=== PATIENT | female | born 1965 | race Two or more races ===

== ENCOUNTER 2020-03-21 12:52 | Emergency (ER) | payer MEDICARE, MEDICAID, SELFPAY ==
--- NOTE | 2020-03-21 12:56 | ECG_ITS ---
Test Reason : CHEST TIGHT Blood Pressure : / mmHG Vent. Rate : 098 BPM Atrial Rate : 078 BPM P-R Int : 156 ms QRS Dur : 082 ms QT Int : 364 ms P-R-T Axes : 045 029 050 degrees QTc Int : 464 ms Sinus rhythm Possible Left atrial enlargement Otherwise normal ECG When compared with ECG of 27-JUN-2019 17:36, No significant changes seen Referred By: Generic ED Physician Electronically Signed By:RENITA HODGSON MD
--- NOTE | 2020-03-21 12:56 | PC.NURSE ---
CALLED FOR EKG AT 1251
[2020-03-21 14:17] VITALS: BP 151/74; PULSE 72; RESP 16; TEMP 35.7; O2SAT 97; BMI 32.1
--- NOTE | 2020-03-21 14:48 | PC.NURSE ---
NSR ON MONITR. UNLABORED RESP. SKIN [PWD. REPORTING EPISODES OF DIZZINESS WITH DIAPHORESIS OCER LAST MONTH. MOST RECENT WAS WITH CP BUT HAS RESOLVED ALMOST ENTIRELY. CHEST TIGHTNESS REMAINS. LS CTA. STRNG STEADY GAIT ARRIVING.
[2020-03-21 14:49] VITALS: BP 161/87; PULSE 78; RESP 20; O2SAT 98
--- NOTE | 2020-03-21 14:55 | ED_ITS ---
HPI - Chest Pain General Chief Complaint: Chest Pain Stated Complaint: chest pressure, dizziness Time Seen by Provider: 03/21/20 14:55 Source: patient Mode of arrival: ambulatory Limitations: no limitations History of Present Illness HPI narrative: Today patient had tighness in her chest. Patient has been suffering with headache for a month with dizziness all the time. Patient has a doctor have not seen them. Patient has no chronic medical problems MD complaint: chest pain Onset (ago): hour(s) Timing of current episode: constant Onset: other (patient was cleaning her house when she got the pressure) Pain location: substernal Pain radiation: none Severity: mild Quality: tightness Associated symptoms: other (dizziness) Risk Factors Coronary artery disease risk factors: none Thoracic aortic dissection risk factors: none Related Data Allergies Allergy/AdvReac Type Severity Reaction Status Date / Time calcium [Calcium] Allergy Severe HIVES Verified 03/21/20 14:26 doxycycline [Doxycycline] Allergy Severe FACIAL Verified 03/21/20 14:26 SWELLING, almost killed pt,inhouse for weakness,,incontinence?seizures, almost killed pt,inhouse for weakness,,incontinence?seizures Penicillins Allergy Severe FACIAL Verified 03/21/20 14:26 SWELLING amoxicillin Allergy Unknown throat Verified 03/21/20 14:26 swelling azithromycin [AZITHROMYCIN] Allergy Unknown BLOODY Verified 03/21/20 14:26 DIARRHEA cefuroxime [CEFUROXIME] Allergy Unknown ANGIOEDEMA Verified 03/21/20 14:26 ciprofloxacin [Cipro] Allergy Unknown Unknown Verified 03/21/20 14:26 clindamycin [CLINDAMYCIN] Allergy Unknown ANAPHYLAXIS Verified 03/21/20 14:26 Erythromycin Allergy Unknown diarrhea Verified 03/21/20 14:26 iron Allergy Unknown Unknown Verified 03/21/20 14:26 levofloxacin [Levaquin] Allergy Unknown Unknown Verified 03/21/20 14:26 peanut [Peanut] Allergy Unknown ITCHING Unverified 02/13/20 15:03 penicillin V Allergy Unknown ears and Unverified 09/04/19 00:00 face swell,throat swell Sulfa (Sulfonamide Allergy Unknown ANAPHYLAXIS, Unverified 02/13/20 15:03 Antibiotics) swelling [SULFA(SULFONAMIDE body,welts ANTIBIOTICS)] Clindamycin HCl Allergy Unknown swelling Uncoded 09/04/19 00:00 body Doxycycline Hyclate Allergy Unknown Anaphylaxis Uncoded 03/21/20 14:26 Levaquin Allergy Unknown headaches Uncoded 09/04/19 00:00 RAISIN Allergy Unknown ITCHING Uncoded 02/13/20 15:03 TURNIPS Allergy Unknown UNKNOWN Uncoded 02/13/20 15:03 Review of Systems Constitutional: Constitutional: Reports no additional constitutional complaints Eyes: Eyes: Reports no additional eye complaints ENT: Denies dizziness Cardiovascular: Cardiovascular: Reports no additional cardiovascular complaints Respiratory: Respiratory: Reports as per HPI Gastrointestinal: Gastrointestinal: Reports no additional gastrointestinal complaints Genitourinary: Genitourinary: Reports no additional female genitourinary complaints Musculoskeletal: Musculoskeletal: Reports no additional musculoskeletal complaints Integumentary/Breasts: Skin/Breast: Denies rash Neurologic: Reports system reviewed and no additional complaints, except as documented, Denies dizziness and Denies Sensory deficit (Neuro) Psychiatric: Psychiatric: Reports anxiety Comments: Patient with increased anxiety about going outside since [facility] Past Medical History Medical History (Updated 03/21/20 @ 16:56 by Constantino Gordon MD) Anxiety Appendicitis Carpal tunnel syndrome Chronic headaches Depression Diverticulosis Fibromyalgia IBS (irritable bowel syndrome) Kidney stone Right shoulder injury Vertigo Surgical History (Updated 03/21/20 @ 14:21 by Dorothy Mosher) Hx of cholecystectomy Social History Social History Alcohol intake: never Smoking Status: Light tobacco smoker Smoked in Last 30 Days: Yes Use of substances other than those prescribed or required for medical reasons: Yes Substance Use Type: Marijuana Advance Directives: No Advance Directives Information Provided: No Physical Exam Vital Signs: Vital Signs: Vital Signs Temp Pulse Resp BP Pulse Ox 03/21/20 15:20 74 18 131/78 100 03/21/20 14:49 78 20 161/87 H 98 03/21/20 14:17 96.3 F L 72 16 151/74 H 97 Body Mass Index 32.1 Const: General: healthy appearing Nutritional Appearance: average body habitus Orientation/consciousness: oriented to person and patient oriented x3 Limitations: no limitations HENMT: Head: Yes normal to inspection Ears: external ears normal General nose exam: Normal external nose present Mouth: Normal oral and palatal mucosa present and oropharynx normal Throat: Yes posterior oropharynx normal Eyes: General: appearance normal, both eyes and all related structures Neck: Other: supple Neck: Yes normal visual inspection Chest: Chest palpation & inspection: normal inspection of the chest Resp: Auscultation: clear to auscultation bilaterally Cardio: Jugular venous distension: no JVD Rate: regular rate Rhythm: regular rhythm Heart sounds: S1 normal heart sound present and S2 normal heart sound present GI: Inspection: Yes normal to inspection Palpation (GI): Soft to palpation, nontender and No hepatosplenomegaly present Auscultation: normal bowel sounds : General: Yes no CVA tenderness Back/Spine/Pelvis: Back: no CVA tenderness Skin: General skin exam: no rashes or lesions noted Neuro: General: oriented to person and patient oriented x3 Cranial nerves: Yes CN's II-XII intact bilaterally Motor exam (neuro): 5/5 motor strength present throughout Sensory Exam: No Sensory deficit (Neuro) Extrem: General: Yes normal to inspection Psych: Appearance: grossly normal Course Course Course Narrative: troponin negative will dc home MDM - Chest Pain MDM Narrative Medical decision making narrative: 54yo female with many somatic complaints and a history of fibromyalgia. She has had months of headaches which she suffers from chronically and today had chest discomfort while cleaning house. I doubt cardiac reason for her chest pain, EKG non ischemic awaiting labs and troponin Lab Data Result diagrams: 03/21/20 15:26 03/21/20 16:33 Labs: Lab Results 03/21/20 03/21/20 03/21/20 Range/Units 15:26 15:26 15:26 WBC 13.5 H (4.8-10.8) X10*3/uL RBC 4.86 (4.20-5.50) X10*6/uL Hgb 14.0 (12.0-16.0) g/dl Hct 43.3 (37-47) % MCV 89.1 (80-98) fL MCH 28.8 (27.0-33.0) pg MCHC 32.3 (31.0-35.0) g/dl RDW 13.5 (11.0-16.0) % Plt Count 331 (160-400) X10*3/uL MPV 9.9 (9.4-12.3) fL Immature Gran % (Auto) 0.4 (0.0-0.4) % Neut % (Auto) 72.1 (45-73) % Lymph % (Auto) 19.7 L (20-40) % [place] % (Auto) 5.9 (2-11) % Eos % (Auto) 1.5 (0-4) % Baso % (Auto) 0.4 (0-2) % Lymph # (Auto) 2.7 (1.2-4.9) X10*3/uL [place] # (Auto) 0.8 (0.1-1.2) X10*3/uL Eos # (Auto) 0.2 (0.0-0.4) X10*3/uL Baso # (Auto) 0.1 (0.0-0.2) X10*3/uL Abs Immat Gran (auto) 0.06 H (0.00-0.03) X10*3/uL Absolute Neuts (auto) 9.7 H (2.0-8.3) X10*3/uL Absolute Nucleated RBC 0.000 (0.0-0.012) X10*3/uL Nucleated RBC % (auto) 0.0 (0.0-0.2) /100WBC Sodium Cancelled Potassium Cancelled Chloride Cancelled Carbon Dioxide Cancelled Anion Gap Cancelled BUN Cancelled Creatinine Cancelled Estim Creat Clear Calc Cancelled Estimated GFR Cancelled Random Glucose Cancelled Calcium Cancelled Troponin I High Sens < 3.5 (<3.5-17.0) ng/L Discharge Plan Discharge Clinical Impression: Atypical chest pain Patient Disposition: Home, Self-Care Instructions: Chest Pain (ED) Referrals: Angelo Tejada PA-C [Primary Care Provider] - 2 days (call for follow up of your chest pain)
[2020-03-21 15:20] VITALS: BP 131/78; PULSE 74; RESP 18; O2SAT 100
--- NOTE | 2020-03-21 15:21 | PC.NURSE ---
PT CONTINUES TO FEEL CHEST TIGHTNES . SKIWN PWD. AWAITING LAB RESULTS.
[2020-03-21 15:32] LABS: MANUAL DIFF FLAG NO
[2020-03-21 15:33] LABS: Basophils Absolute Auto 0.1 X10*3/uL (0.0-0.2); Basophils Percent Auto 0.4 % (0-2); Eosinophils Absolute Auto 0.2 X10*3/uL (0.0-0.4); Eosinophils Percent Auto 1.5 % (0-4); Hematocrit 43.3 % (37-47); Imm Gran Abs Auto 0.06 X10*3/uL (0.00-0.03); Imm Gran Pct Auto 0.4 % (0.0-0.4); Lymphocytes Absolute Auto 2.7 X10*3/uL (1.2-4.9); Lymphocytes Percent Auto 19.7 % (20-40); Mean Corpuscular HGB Conc 32.3 g/dl (31.0-35.0); Mean Corpuscular Hemoglobin 28.8 pg (27.0-33.0); Mean Corpuscular Volume 89.1 fL (80-98); Mean Platelet Volume 9.9 fL (9.4-12.3); Monocytes Absolute Auto 0.8 X10*3/uL (0.1-1.2); Monocytes Percent Auto 5.9 % (2-11); Neutrophils Absolute Auto 9.7 X10*3/uL (2.0-8.3); Neutrophils Percent Auto 72.1 % (45-73); Platelet Count 331 X10*3/uL (160-400); Red Blood Count 4.86 X10*6/uL (4.20-5.50); Red Cell Distribution Width 13.5 % (11.0-16.0); White Blood Count 13.5 X10*3/uL (4.8-10.8)
[2020-03-21 15:57] LABS: Troponin-I High Sensitivity < 3.5 ng/L (<3.5-17.0)
[2020-03-21 16:00] VITALS: BP 138/74; PULSE 66; RESP 18; O2SAT 99
[2020-03-21 17:05] LABS: Anion Gap 13 (12-20); Blood Urea Nitrogen 18 mg/dL (9-16); Calcium 9.1 mg/dL (8.4-10.2); Carbon Dioxide 26 mmol/L (22-29); Chloride 105 mmol/L (96-108); Creatinine Clr Calc Pharmacy 71.7; Estimated Glomerular Filt Rate > 60; Glucose Random 83 mg/dL (60-115); Potassium 4.8 mmol/l (3.3-5.1); Sodium 139 mmol/L (135-145)
== END 2020-03-21 17:40 | disposition home or self-care (01) ==
PROVIDERS: Emergency Provider Emergency Medicine; PCP Physician Assistant
DX: R07.89 Other chest pain (principal); R42 Dizziness and giddiness; Z79.899 Other long term (current) drug therapy
CPT/HCPCS: 36415; 80048; 84484; 85025; 93005; 99283; 99284

== ENCOUNTER 2020-04-05 12:25 | Emergency (ER) | payer MEDICARE, MEDICAID, SELFPAY ==
[2020-04-05 12:49] VITALS: BP 145/86; PULSE 90; RESP 16; TEMP 37; O2SAT 99; BMI 30.9
--- NOTE | 2020-04-05 13:00 | XR_ITS ---
EXAMINATION: XR WRIST-RIGHT XR FOREARM-RIGHT CLINICAL INFORMATION: Injury. COMPARISON: Right hand done on 07/27/2016. TECHNIQUE: 3 views of the right hand and 2 views of the right forearm were obtained. FINDINGS: RIGHT WRIST: Mild ulnar minus variant is present, unchanged. The bony alignments are otherwise intact. The cortices are intact. The soft tissues are unremarkable. No significant change since prior radiographs dated 07/27/2016. RIGHT FOREARM: The bony alignment is intact. The cortices are intact. The soft tissues are unremarkable. XR/XR forearm RT 2V IMPRESSION: Unremarkable radiographic appearance of the right wrist and right forearm except for mild ulnar minus variant which is unchanged since 07/27/2016.
--- NOTE | 2020-04-05 13:00 | XR_ITS ---
EXAMINATION: XR WRIST-RIGHT XR FOREARM-RIGHT CLINICAL INFORMATION: Injury. COMPARISON: Right hand done on 07/27/2016. TECHNIQUE: 3 views of the right hand and 2 views of the right forearm were obtained. FINDINGS: RIGHT WRIST: Mild ulnar minus variant is present, unchanged. The bony alignments are otherwise intact. The cortices are intact. The soft tissues are unremarkable. No significant change since prior radiographs dated 07/27/2016. RIGHT FOREARM: The bony alignment is intact. The cortices are intact. The soft tissues are unremarkable. XR/XR wrist RT min 3V IMPRESSION: Unremarkable radiographic appearance of the right wrist and right forearm except for mild ulnar minus variant which is unchanged since 07/27/2016.
--- NOTE | 2020-04-05 13:14 | ED.EXTPRO ---
HPI - Extremity Problem General Chief complaint: Fall Stated complaint: rt arm pain Time Seen by Provider: 04/05/20 13:00 History of Present Illness HPI Narrative: Patient complains of trip and fall injury to right wrist and forearm that occurred today, there is no other injury, no numbness no weakness, she was not dizzy before her fall This happened today, pain is [id number], no treatment prior to arrival Related Data Home Medications Medication Instructions Recorded Confirmed bupropion HCl 150 mg 24 hr tablet, 150 mg PO QAM 03/24/20 03/24/20 extended release fluticasone propionate 115 2 puff INHALATION BID 03/24/20 03/24/20 mcg-salmeterol 21 mcg/actuation HFA inhaler ipratropium bromide 0.03 % nasal INTRANASAL 03/24/20 03/24/20 spray loratadine 10 mg tablet 10 mg PO DAILY 03/24/20 03/24/20 Previous Rx's Medication Instructions Recorded levalbuterol tartrate 45 1 puff INHALATION Q4H PRN 30 Days 03/24/20 mcg/actuation aerosol inhaler #15 g montelukast 10 mg tablet 10 mg PO DAILY #30 tab 03/24/20 Allergies Allergy/AdvReac Type Severity Reaction Status Date / Time calcium [Calcium] Allergy Severe HIVES Verified 03/24/20 15:58 doxycycline [Doxycycline] Allergy Severe FACIAL Verified 03/24/20 15:58 SWELLING, almost killed pt,inhouse for weakness,,incontinence?seizures, almost killed pt,inhouse for weakness,,incontinence?seizures Penicillins Allergy Severe FACIAL Verified 03/24/20 15:58 SWELLING amoxicillin Allergy Unknown throat Verified 03/24/20 15:58 swelling azithromycin [AZITHROMYCIN] Allergy Unknown BLOODY Verified 03/24/20 15:58 DIARRHEA cefuroxime [CEFUROXIME] Allergy Unknown ANGIOEDEMA Verified 03/24/20 15:58 ciprofloxacin [Cipro] Allergy Unknown Unknown Verified 03/24/20 15:58 clindamycin [CLINDAMYCIN] Allergy Unknown ANAPHYLAXIS Verified 03/24/20 15:58 Erythromycin Allergy Unknown diarrhea Verified 03/24/20 15:58 iron Allergy Unknown Unknown Verified 03/24/20 15:58 levofloxacin [Levaquin] Allergy Unknown Unknown Verified 03/24/20 15:58 peanut [Peanut] Allergy Unknown ITCHING Verified 03/24/20 15:58 penicillin V Allergy Unknown ears and Verified 03/24/20 15:58 face swell,throat swell Sulfa (Sulfonamide Allergy Unknown ANAPHYLAXIS, Verified 03/24/20 15:58 Antibiotics) swelling [SULFA(SULFONAMIDE body,welts ANTIBIOTICS)] Clindamycin HCl Allergy Unknown swelling Uncoded 09/04/19 00:00 body Doxycycline Hyclate Allergy Unknown Anaphylaxis Uncoded 03/21/20 14:26 Levaquin Allergy Unknown headaches Uncoded 09/04/19 00:00 RAISIN Allergy Unknown ITCHING Uncoded 02/13/20 15:03 TURNIPS Allergy Unknown UNKNOWN Uncoded 02/13/20 15:03 Review of Systems Review of Systems: Review of systems is positive for right wrist and forearm pain Negatives are dizziness weakness fainting No headache no head injury no neck pain no back pain no numbness no weakness no chest pain no shortness of breath Yes all other systems are reviewed and are negative PMFSH Past Medical History Source: nursing notes reviewed Medical History (Updated 04/05/20 @ 14:09 by ALEA Sethi) Anxiety Appendicitis Carpal tunnel syndrome Chronic headaches Depression Diverticulosis Fibromyalgia IBS (irritable bowel syndrome) Kidney stone Right shoulder injury Vertigo Surgical History (Updated 03/21/20 @ 14:21 by Dorothy Mosher) Hx of cholecystectomy Social History Social History Alcohol intake: never Smoking Status: Current some day smoker Substance Use Type: Marijuana Advance Directives: No Advance Directives Information Provided: Yes Physical Exam Vital Signs: Vital Signs: Last Vital Signs Temp 98.6 F 04/05/20 12:49 Pulse 90 04/05/20 12:49 Resp 16 04/05/20 12:49 BP 145/86 H 04/05/20 12:49 Pulse Ox 99 04/05/20 12:49 Body Mass Index 30.9 General appearance is no acute distress, comfortable appearing A&O x3 The head is normocephalic atraumatic neck is supple and nontender Respiratory is no acute respiratory distress Extremities the right arm exam shows some mild swelling in the volar wrist, there is limited range of motion on flexion and extension due to pain, there is no other swelling there is no discoloration, neurovascular intact distal, skin is intact Other extremities are without swelling tenderness or deformity she ambulates normally Skin is intact Neuro is A&O x3 no numbness motor is 5 5 x 4 Course Course Course Narrative: X-ray reports were reviewed and no fracture was seen and patient is given an Luis bandage for comfort and follow with orthopedics as needed Discharge Plan Discharge Clinical Impression: Right wrist sprain Qualifiers: Encounter type: initial encounter Qualified Code(s): S63.501A - Unspecified sprain of right wrist, initial encounter Patient Disposition: Home, Self-Care Additional Instructions: X-rays did not show any broken bone, but x-rays can miss many injuries Follow with primary care doctor or orthopedist next week if not improved Return any time any worse condition or any concerns Prescriptions: No Action Advair HFA 115-21 mcg/actuation HFA aerosol inhaler 2 puff inhalation BID RF: 0 ipratropium bromide 0.03 % spray,non-aerosol intranasal RF: 0 bupropion HCl 150 mg tablet extended release 24 hr 150 mg PO QAM RF: 0 loratadine 10 mg tablet 10 mg PO DAILY RF: 0 montelukast 10 mg tablet 10 mg PO DAILY Qty: 30 RF: 1 levalbuterol tartrate 45 mcg/actuation HFA aerosol inhaler 1 puff inhalation Q4H PRN (Reason: shortness of breath or wheezing) 30 Days Qty: 15 RF: 2 Referrals: Moses Wetzel MD [Physician] - 2 days (Right wrist injury) Interventions: ED Discharge Assessment Last Done: 04/05/20 14:10 Discharge Date/Time: 04/05/20 14:12
== END 2020-04-05 14:12 | disposition home or self-care (01) ==
PROVIDERS: Emergency Provider Emergency Medicine; PCP Physician Assistant
DX: S63.501A Unspecified sprain of right wrist, initial encounter (principal); M79.601 Pain in right arm; W01.0XXA Fall on same level from slipping, tripping and stumbling without subsequent striking against object, initial encounter; Y93.9 Activity, unspecified; Y92.9 Unspecified place or not applicable; Y99.8 Other external cause status; Z79.899 Other long term (current) drug therapy; F17.200 Nicotine dependence, unspecified, uncomplicated; Z71.6 Tobacco abuse counseling
CPT/HCPCS: 73090; 73110; 99283

== ENCOUNTER → 2020-04-16 14:42 | Outpatient (BNVA) | payer MEDICARE, MEDICAID, SELFPAY | PROVIDERS: PCP Physician Assistant; Referring Provider Physician Assistant; Visit Provider Nurse Practitioner | DX: K58.0 Irritable bowel syndrome with diarrhea (principal); K21.9 Gastro-esophageal reflux disease without esophagitis; K63.89 Other specified diseases of intestine; F17.210 Nicotine dependence, cigarettes, uncomplicated | CPT/HCPCS: Q3014 ==

== ENCOUNTER 2020-05-06 14:39 | Outpatient (REF) | payer MEDICARE, MEDICAID, SELFPAY ==
--- NOTE | 2020-05-06 14:41 | CT_ITS ---
EXAMINATION: CT WRIST WITHOUT CONTRAST, RIGHT CLINICAL INFORMATION: Pain right wrist. COMPARISON: None. TECHNIQUE: 2 mm thin axial and reformatted 2 mm thin sagittal and coronal images of brain were obtained without contrast. This CT examination was performed using dose optimization techniques as appropriate, variously including the following: *Automated exposure control *Adjustment of mA and/or kV according to patient size (this includes techniques or standardized protocols for targeted exams where dose is matched to indication/reason for exam; i.e. extremities or head) *Use of iterative reconstruction technique DLP: 111 mGy-cm. FINDINGS: There is normal alignment of intercarpal, radiocarpal and carpometacarpal bones. No visible fracture, dislocation or subluxation seen. The palmar and the dorsal soft tissues are normal. No abnormal joint effusion or fluid collection seen. CT/CT wrist RT wo con IMPRESSION: Unremarkable CT wrist exam. If patient has persistent pain, an MRI of the wrist can be performed for better evaluation.
== END 2020-05-06 14:40 | disposition home or self-care (01) ==
LOC: HO.CT 14:39
PROVIDERS: Visit Provider Physician Assistant
DX: M25.531 Pain in right wrist (principal); G89.29 Other chronic pain
CPT/HCPCS: 73200

== ENCOUNTER 2020-05-12 09:41 | Outpatient (REF) | payer MEDICARE, MEDICAID, SELFPAY ==
--- NOTE | 2020-05-12 09:46 | US_ITS ---
EXAMINATION: US ABDOMEN COMPLETE CLINICAL INFORMATION: Epigastric pain. COMPARISON: CT abdomen 08/30/2017. TECHNIQUE: Real-time imaging of the abdominal viscera. FINDINGS: PANCREAS: The visualized head and body of the pancreas appears unremarkable. Remainder of the pancreas is obscured by bowel gas. ABDOMINAL AORTA: The proximal segment is normal in caliber. Mid to distal aorta is not visualized. INFERIOR VENA CAVA: Visualized portions are normal. LIVER: Normal. The liver is normal in size. The liver contour is normal. Parenchymal echogenicity is normal. No focal hepatic lesion. There is no intrahepatic biliary duct dilatation seen. GALLBLADDER: Surgically absent. COMMON BILE DUCT: Normal in caliber measuring 0.6 cm in diameter. RIGHT KIDNEY: Normal. No hydronephrosis. No renal calculi or focal parenchymal lesions. The kidney measures 10.7 cm in maximum dimension. LEFT KIDNEY: Normal. No hydronephrosis. No renal calculi or focal parenchymal lesions. The kidney measures 10.2 cm in maximum dimension. SPLEEN: Normal. The spleen measures 8.6 cm in maximum dimension. FREE FLUID: None US/US abdomen complete IMPRESSION: Status postcholecystectomy. Unremarkable abdominal ultrasound otherwise. No acute findings seen.
== END 2020-05-12 09:42 | disposition home or self-care (01) ==
LOC: HO.US 09:41
PROVIDERS: PCP Physician Assistant; Visit Provider Physician Assistant
DX: R10.13 Epigastric pain (principal); R35.0 Frequency of micturition
CPT/HCPCS: 76700

== ENCOUNTER 2020-05-12 16:50 | Emergency (ER) | payer MEDICARE, MEDICAID, SELFPAY ==
[2020-05-12 16:54] VITALS: BP 138/75; PULSE 79; RESP 16; TEMP 37.3; O2SAT 99; BMI 33.2
[2020-05-12 17:27] LABS: MANUAL DIFF FLAG NO
[2020-05-12 17:29] LABS: Basophils Absolute Auto 0.1 X10*3/uL (0.0-0.2); Basophils Percent Auto 0.5 % (0-2); Eosinophils Absolute Auto 0.4 X10*3/uL (0.0-0.4); Eosinophils Percent Auto 3.2 % (0-4); Hematocrit 42.8 % (37-47); Hemoglobin 13.7 g/dl (12.0-16.0); Imm Gran Abs Auto 0.04 X10*3/uL (0.00-0.03); Imm Gran Pct Auto 0.3 % (0.0-0.4); Lymphocytes Absolute Auto 3.8 X10*3/uL (1.2-4.9); Lymphocytes Percent Auto 29.2 % (20-40); Mean Corpuscular Hemoglobin 28.7 pg (27.0-33.0); Mean Corpuscular Volume 89.5 fL (80-98); Mean Platelet Volume 9.7 fL (9.4-12.3); Monocytes Absolute Auto 0.9 X10*3/uL (0.1-1.2); Monocytes Percent Auto 6.7 % (2-11); Neutrophils Absolute Auto 7.8 X10*3/uL (2.0-8.3); Neutrophils Percent Auto 60.1 % (45-73); Platelet Count 365 X10*3/uL (160-400); Red Blood Count 4.78 X10*6/uL (4.20-5.50); Red Cell Distribution Width 13.7 % (11.0-16.0); White Blood Count 12.9 X10*3/uL (4.8-10.8)
[2020-05-12 17:57] LABS: Anion Gap 11 (12-20); Blood Urea Nitrogen 14 mg/dL (9-16); Calcium 9.2 mg/dL (8.4-10.2); Carbon Dioxide 29 mmol/L (22-29); Chloride 103 mmol/L (96-108); Creatinine Clr Calc Pharmacy 71.1; Estimated Glomerular Filt Rate > 60; Glucose Random 83 mg/dL (60-115); Potassium 4.4 mmol/l (3.3-5.1); Sodium 139 mmol/L (135-145)
== END 2020-05-12 18:55 | disposition left against medical advice (07) ==
PROVIDERS: Emergency Provider Emergency Medicine; PCP Physician Assistant
DX: Z04.3 Encounter for examination and observation following other accident (principal)
CPT/HCPCS: 36415; 80048; 85025; 99282; 99283

== ENCOUNTER → 2020-05-25 16:23 | Outpatient (BNVA) | payer MEDICARE, MEDICAID, SELFPAY | PROVIDERS: PCP Physician Assistant; Visit Provider Nurse Practitioner | DX: Z13.89 Encounter for screening for other disorder (principal) | CPT/HCPCS: Q3014 ==

== ENCOUNTER 2020-05-28 14:13 | Outpatient (REF) | payer MEDICARE, MEDICAID, SELFPAY ==
--- NOTE | 2020-05-28 14:16 | US_ITS ---
EXAMINATION: US PELVIS LIMITED (BLADDER) CLINICAL INFORMATION: Frequency of micturition. COMPARISON: CT abdomen and pelvis 08/30/2017. TECHNIQUE: Real-time imaging of the bladder. FINDINGS: BLADDER: Partially distended. Bilateral ureteral jets are demonstrated. Prevoid bladder volume is 135 mL. There is no postvoid residual. . US/US bladder IMPRESSION: Normal appearance of the urinary bladder. No post void residual.
== END 2020-05-28 14:14 | disposition home or self-care (01) ==
LOC: HO.US 14:13
PROVIDERS: PCP Physician Assistant; Visit Provider Physician Assistant
DX: R35.0 Frequency of micturition (principal); R10.13 Epigastric pain
CPT/HCPCS: 76857

== ENCOUNTER → 2020-06-17 11:28 | Outpatient (BNVA) | payer MEDICARE, MEDICAID, SELFPAY | PROVIDERS: PCP Physician Assistant; Visit Provider Nurse Practitioner | DX: K63.89 Other specified diseases of intestine (principal); K21.9 Gastro-esophageal reflux disease without esophagitis; K58.0 Irritable bowel syndrome with diarrhea; R14.0 Abdominal distension (gaseous) | CPT/HCPCS: Q3014 ==

== ENCOUNTER → 2020-07-01 11:45 | Outpatient (BNVA) | payer MEDICARE, MEDICAID, SELFPAY | PROVIDERS: PCP Physician Assistant; Visit Provider Obstetrics & Gynecology | DX: Z13.89 Encounter for screening for other disorder (principal) | CPT/HCPCS: 99212 ==

== ENCOUNTER 2020-07-02 16:04 | Emergency (ER) | payer MEDICARE, MEDICAID, SELFPAY ==
--- NOTE | ~2020-07-02 | XR_ITS ---
EXAMINATION: CHEST 2 VIEWS CLINICAL INFORMATION: cp . COMPARISON: 07/30/2019. TECHNIQUE: PA and lateral views of the chest obtained. FINDINGS: The lungs are well expanded. No focal infiltrate, effusion, edema, or pneumothorax. Cardiac and mediastinal silhouettes are within normal limits for technique. No acute bony abnormality seen XR/XR chest 2V IMPRESSION: No evidence of acute disease compared to 07/30/2019
--- NOTE | ~2020-07-02 | US_ITS ---
EXAMINATION: US VENOUS ULTRASOUND WITH DOPPLER LOWER EXTREMITY, LEFT CLINICAL INFORMATION: Left calf pain COMPARISON: None TECHNIQUE: Ultrasound of the deep veins is performed from the hip to the calf with compression sonography and color and pulse Doppler assessment. Spectral analysis with color-flow imaging is performed. FINDINGS: There is normal venous compression and respiratory variation and augmented flow. The visualized common femoral vein, superficial femoral vein, profunda femoral vein, popliteal vein, and the trifurcation region shows no evidence of deep venous thrombosis. A small 3.2 x 0.7 x 1.1 cm Lee's cyst is present. If the patient's symptoms persist, followup ultrasound in 5 days 7 days might be of value to exclude proximal propagation from a non-visualized calf vein. US/US venous duplex LE IMPRESSION: No DVT demonstrated in the left lower extremity.
[2020-07-02 16:54] VITALS: BP 152/74; PULSE 96; RESP 20; TEMP 36.5; O2SAT 100; BMI 30.7
--- NOTE | 2020-07-02 16:54 | ED.GENADULT ---
HPI - General Adult General Stated complaint: CHEST TIGHTNESS Time Seen by Provider: 07/02/20 16:54 Related Data Home Medications Medication Instructions Recorded Confirmed bupropion HCl 150 mg 24 hr tablet, 150 mg PO QAM 03/24/20 04/21/20 extended release loratadine 10 mg tablet 10 mg PO DAILY 03/24/20 04/21/20 albuterol sulfate mg INHALATION Q8H PRN 05/05/20 albuterol sulfate 90 mcg/actuation INHALATION 05/05/20 aerosol inhaler fluticasone 113 mcg-salmeterol 14 1 inh INHALATION BID 05/05/20 mcg/actuation breath activated powdr fluticasone propionate 115 2 puff INHALATION BID 05/20/20 mcg-salmeterol 21 mcg/actuation HFA inhaler L.acid,gasseri,plant,rham-B.animalis-cran cap PO 06/17/20 5 billion cell-250mg capsule calcium carbonate 200 mg calcium 200 mg PO BID 06/17/20 (500 mg) chewable tablet simethicone 125 mg capsule 125 mg PO DAILY PRN cap 06/17/20 Previous Rx's Medication Instructions Recorded montelukast 10 mg tablet 10 mg PO DAILY #30 tab 03/24/20 prednisone 20 mg tablet 20 mg PO DAILY 9 Days #18 tab MDD 05/05/20 3 for 3days;2 for 3 days;1 3da fluticasone propionate 115 2 puff PO BID #12 cap 05/20/20 mcg-salmeterol 21 mcg/actuation HFA inhaler dicyclomine 20 mg tablet 20 mg PO TID #90 cap 06/22/20 fluticasone propionate 50 1 spray INTRANASAL DAILY #16 cap 06/22/20 mcg/actuation nasal spray,suspension ipratropium bromide 0.03 % nasal 2 spray INTRANASAL BID #30 cap 06/22/20 spray levalbuterol tartrate 45 1 puff PO Q4H PRN #15 cap 06/24/20 mcg/actuation aerosol inhaler metronidazole 500 mg tablet 500 mg PO BID #10 tab 07/01/20 Allergies Allergy/AdvReac Type Severity Reaction Status Date / Time calcium [Calcium] Allergy Severe HIVES Verified 07/01/20 11:45 doxycycline [Doxycycline] Allergy Severe FACIAL Verified 07/01/20 11:45 SWELLING, almost killed pt,inhouse for weakness,,incontinence?seizures, almost killed pt,inhouse for weakness,,incontinence?seizures Penicillins Allergy Severe FACIAL Verified 07/01/20 11:45 SWELLING amoxicillin Allergy Unknown throat Verified 07/01/20 11:45 swelling azithromycin [AZITHROMYCIN] Allergy Unknown BLOODY Verified 07/01/20 11:45 DIARRHEA cefuroxime [CEFUROXIME] Allergy Unknown ANGIOEDEMA Verified 07/01/20 11:45 ciprofloxacin [Cipro] Allergy Unknown Unknown Verified 07/01/20 11:45 clindamycin [CLINDAMYCIN] Allergy Unknown ANAPHYLAXIS Verified 07/01/20 11:45 Erythromycin Allergy Unknown diarrhea Verified 07/01/20 11:45 iron Allergy Unknown Unknown Verified 07/01/20 11:45 levofloxacin [Levaquin] Allergy Unknown Unknown Verified 07/01/20 11:45 peanut [Peanut] Allergy Unknown ITCHING Verified 07/01/20 11:45 penicillin V Allergy Unknown ears and Verified 07/01/20 11:45 face swell,throat swell Sulfa (Sulfonamide Allergy Unknown ANAPHYLAXIS, Verified 07/01/20 11:45 Antibiotics) swelling [SULFA(SULFONAMIDE body,welts ANTIBIOTICS)] RAISIN Allergy Unknown ITCHING Uncoded 07/01/20 11:45 TURNIPS Allergy Unknown UNKNOWN Uncoded 07/01/20 11:45 cheetos Allergy itchy, rash Uncoded 07/01/20 11:45 cranberry juice Allergy mouth Uncoded 07/01/20 11:45 itchy, bumps grape juice Allergy mouth Uncoded 07/01/20 11:45 itchy, bumps PMFSH Past Medical History Medical History Anxiety Appendicitis Carpal tunnel syndrome Chronic headaches Depression Diverticulosis Fibromyalgia IBS (irritable bowel syndrome) Kidney stone Right shoulder injury Vertigo Surgical History History of esophagogastroduodenoscopy (EGD) Hx of appendectomy Hx of carpal tunnel repair (~07/2019) Hx of cholecystectomy Hx of colonoscopy Hx of rotator cuff surgery Hx of shoulder surgery Family History Family History Father Myocardial infarction Mother Congestive heart failure Stomach problems Stomach ulcer Anxiety and depression Myocardial infarction Sister Heart problem Sister Afib Social History Social History Household Members: Family Alcohol intake: current Alcohol intake frequency: does not drink Smoking Status: Current every day smoker Tobacco Type: Cigarette Cigarettes Per Day: 4 Course Course Course Narrative: 1655-This is a rapid medical exam. 55 yo female with past medical history of fibromyalgia, GERD, chronic migraines, anxiety, depression, asthma, chronic bronchitis here with chest tightness since yesterday, chronic cough. No SOB. Pain radiates to back. Pain in left calf. No swelling. Will check CXR, EKG, labs, US of LLE. Deferred additional HPI, ROS, PE to primary provider. Discharge Plan Discharge Prescriptions: No Action Advair HFA 115-21 mcg/actuation HFA aerosol inhaler 2 puff inhalation BID RF: 0 fluticasone propion-salmeterol [Advair HFA] 115-21 mcg/actuation HFA aerosol inhaler 2 puff PO BID Qty: 12 RF: 3 fluticasone propionate 50 mcg/actuation spray,suspension 1 spray intranasal DAILY Qty: 16 RF: 3 dicyclomine 20 mg tablet 20 mg PO TID Qty: 90 RF: 2 ipratropium bromide 0.03 % spray,non-aerosol 2 spray intranasal BID Qty: 30 RF: 4 levalbuterol tartrate [Xopenex HFA] 45 mcg/actuation HFA aerosol inhaler 1 puff PO Q4H PRN (Reason: for wheezing) Qty: 15 RF: 4 bupropion HCl 150 mg tablet extended release 24 hr 150 mg PO QAM RF: 0 loratadine 10 mg tablet 10 mg PO DAILY RF: 0 montelukast 10 mg tablet 10 mg PO DAILY Qty: 30 RF: 1 albuterol sulfate 90 mcg/actuation HFA aerosol inhaler inhalation RF: 0 albuterol sulfate 2.5 mg /3 mL (0.083 %) solution for nebulization inhalation Q8H PRNRF: 0 fluticasone propion-salmeterol 113-14 mcg/actuation aerosol powdr breath activated 1 inh inhalation BID RF: 0 prednisone 20 mg tablet 20 mg PO DAILY MDD 3 for 3days;2 for 3 days;1 3da 9 Days Qty: 18 RF: 0 metronidazole 500 mg tablet 500 mg PO BID Qty: 10 RF: 0
--- NOTE | 2020-07-02 16:58 | ECG_ITS ---
Test Reason : CHEST PAIN Blood Pressure : / mmHG Vent. Rate : 083 BPM Atrial Rate : 083 BPM P-R Int : 162 ms QRS Dur : 084 ms QT Int : 356 ms P-R-T Axes : 055 033 047 degrees QTc Int : 418 ms Normal sinus rhythm Normal EKG When compared with ECG of 21-MAR-2020 13:15, No significant change was found Referred By: Penelope Croft Electronically Signed By:JUNG OSMAN
[2020-07-02 18:33] LABS: MANUAL DIFF FLAG NO
[2020-07-02 18:38] LABS: Basophils Absolute Auto 0.1 X10*3/uL (0.0-0.2); Basophils Percent Auto 0.5 % (0-2); Eosinophils Absolute Auto 0.4 X10*3/uL (0.0-0.4); Eosinophils Percent Auto 2.7 % (0-4); Hematocrit 41.4 % (37-47); Hemoglobin 13.3 g/dl (12.0-16.0); Imm Gran Abs Auto 0.04 X10*3/uL (0.00-0.03); Imm Gran Pct Auto 0.3 % (0.0-0.4); Lymphocytes Absolute Auto 3.3 X10*3/uL (1.2-4.9); Lymphocytes Percent Auto 25.7 % (20-40); Mean Corpuscular HGB Conc 32.1 g/dl (31.0-35.0); Mean Corpuscular Hemoglobin 28.7 pg (27.0-33.0); Mean Corpuscular Volume 89.4 fL (80-98); Mean Platelet Volume 9.8 fL (9.4-12.3); Monocytes Absolute Auto 0.8 X10*3/uL (0.1-1.2); Monocytes Percent Auto 6.5 % (2-11); Neutrophils Absolute Auto 8.2 X10*3/uL (2.0-8.3); Neutrophils Percent Auto 64.3 % (45-73); Platelet Count 360 X10*3/uL (160-400); Red Blood Count 4.63 X10*6/uL (4.20-5.50); Red Cell Distribution Width 14.1 % (11.0-16.0); White Blood Count 12.8 X10*3/uL (4.8-10.8)
[2020-07-02 18:56] LABS: Anion Gap 11 (12-20); Blood Urea Nitrogen 12 mg/dL (9-16); Carbon Dioxide 27 mmol/L (22-29); Chloride 103 mmol/L (96-108); Creatinine Clr Calc Pharmacy 67.4; Estimated Glomerular Filt Rate > 60; Glucose Random 91 mg/dL (60-115); Magnesium 2.1 mg/dL (1.6-2.6); Potassium 4.3 mmol/L (3.3-5.1); Sodium 137 mmol/L (135-145)
[2020-07-02 19:03] LABS: Troponin-I High Sensitivity < 3.5 ng/L (<3.5-17.0)
[2020-07-02 21:02] VITALS: BP 131/83; PULSE 78; RESP 15
--- NOTE | 2020-07-02 21:10 | ED.CHESTPAIN ---
HPI - Chest Pain General Chief Complaint: Chest Pain Stated Complaint: CHEST TIGHTNESS Time Seen by Provider: 07/02/20 16:54 Source: patient Mode of arrival: ambulatory Limitations: no limitations History of Present Illness HPI narrative: Patient comes emergency room complaining of chest pain since yesterday, states it is mostly in the sternum, nonradiating, dull. Patient complaining of left-sided calf pain for 1 week. Patient denies coughing, no shortness of breath. Patient states the chest pain is worse when she puts pressure over the sternal area MD complaint: chest pain Related Data Home Medications Medication Instructions Recorded Confirmed bupropion HCl 150 mg 24 hr tablet, 150 mg PO QAM 03/24/20 04/21/20 extended release loratadine 10 mg tablet 10 mg PO DAILY 03/24/20 04/21/20 albuterol sulfate mg INHALATION Q8H PRN 05/05/20 albuterol sulfate 90 mcg/actuation INHALATION 05/05/20 aerosol inhaler fluticasone 113 mcg-salmeterol 14 1 inh INHALATION BID 05/05/20 mcg/actuation breath activated powdr fluticasone propionate 115 2 puff INHALATION BID 05/20/20 mcg-salmeterol 21 mcg/actuation HFA inhaler L.acid,gasseri,plant,rham-B.animalis-cran cap PO 06/17/20 5 billion cell-250mg capsule calcium carbonate 200 mg calcium 200 mg PO BID 06/17/20 (500 mg) chewable tablet simethicone 125 mg capsule 125 mg PO DAILY PRN cap 06/17/20 Previous Rx's Medication Instructions Recorded montelukast 10 mg tablet 10 mg PO DAILY #30 tab 03/24/20 prednisone 20 mg tablet 20 mg PO DAILY 9 Days #18 tab MDD 05/05/20 3 for 3days;2 for 3 days;1 3da fluticasone propionate 115 2 puff PO BID #12 cap 05/20/20 mcg-salmeterol 21 mcg/actuation HFA inhaler dicyclomine 20 mg tablet 20 mg PO TID #90 cap 06/22/20 fluticasone propionate 50 1 spray INTRANASAL DAILY #16 cap 06/22/20 mcg/actuation nasal spray,suspension ipratropium bromide 0.03 % nasal 2 spray INTRANASAL BID #30 cap 06/22/20 spray levalbuterol tartrate 45 1 puff PO Q4H PRN #15 cap 06/24/20 mcg/actuation aerosol inhaler metronidazole 500 mg tablet 500 mg PO BID #10 tab 07/01/20 Allergies Allergy/AdvReac Type Severity Reaction Status Date / Time calcium [Calcium] Allergy Severe HIVES Verified 07/02/20 16:59 doxycycline [Doxycycline] Allergy Severe FACIAL Verified 07/02/20 16:59 SWELLING, almost killed pt,inhouse for weakness,,incontinence?seizures, almost killed pt,inhouse for weakness,,incontinence?seizures Penicillins Allergy Severe FACIAL Verified 07/02/20 16:59 SWELLING amoxicillin Allergy Unknown throat Verified 07/02/20 16:59 swelling azithromycin [AZITHROMYCIN] Allergy Unknown BLOODY Verified 07/02/20 16:59 DIARRHEA cefuroxime [CEFUROXIME] Allergy Unknown ANGIOEDEMA Verified 07/02/20 16:59 ciprofloxacin [Cipro] Allergy Unknown Unknown Verified 07/02/20 16:59 clindamycin [CLINDAMYCIN] Allergy Unknown ANAPHYLAXIS Verified 07/02/20 16:59 Erythromycin Allergy Unknown diarrhea Verified 07/02/20 16:59 iron Allergy Unknown Unknown Verified 07/02/20 16:59 levofloxacin [Levaquin] Allergy Unknown Unknown Verified 07/02/20 16:59 peanut [Peanut] Allergy Unknown ITCHING Verified 07/02/20 16:59 penicillin V Allergy Unknown ears and Verified 07/02/20 16:59 face swell,throat swell Sulfa (Sulfonamide Allergy Unknown ANAPHYLAXIS, Verified 07/02/20 16:59 Antibiotics) swelling [SULFA(SULFONAMIDE body,welts ANTIBIOTICS)] RAISIN Allergy Unknown ITCHING Uncoded 07/02/20 16:59 TURNIPS Allergy Unknown UNKNOWN Uncoded 07/02/20 16:59 cheetos Allergy itchy, rash Uncoded 07/02/20 16:59 cranberry juice Allergy mouth Uncoded 07/02/20 16:59 itchy, bumps grape juice Allergy mouth Uncoded 07/02/20 16:59 itchy, bumps Review of Systems Review of Systems: Constitutional : No Weight loss, No Fever, No Chills, No Night Sweats, No Fatigue, No Malaise ENT/Mouth : No Hearing loss, No Ear Pain, No Nasal Congestion, No Sinus Pain, No Hoarseness, No sore throat, No Rhinorrhea, No Swallowing Difficulty Eyes: No Eye Pain, No Swelling, No Redness, No Foreign Body, No Discharge, No Vision Changes Cardiovascular : Substernal chest pain, No SOB, No Dyspnea on Exertion, No Orthopnea, No Edema, No Palpitations Respiratory : No Cough, No Sputum, No Wheezing, No Smoke Exposure, No Dyspnea Gastrointestinal : No Nausea, No Vomiting, No Diarrhea, No Constipation, No abdominal Pain, No Hematochezia, No Melena Genitourinary : no irregular bleeding, No Dysuria, No Urinary Frequency, No Hematuria, No Urinary Incontinence, No Urgency, No Flank Pain, No Urinary Flow Changes, No Hesitancy Musculoskeletal : No joint pain, No Myalgias, No Joint Swelling Skin : No Skin Lesions, No rash Neuro : No Weakness, No Numbness, No Paresthesias, No Loss of Consciousness, No Dizziness, No Headache Psych : No Anxiety/Panic, No Depression, No SI/HI/AH/VH, No Social Issues, Heme/Lymph: No Bruising, No Bleeding,No Lymphadenopathy Endocrine : No Polyuria, No Polydipsia, No Temperature Intolerance [facility] Past Medical History Medical History Anxiety Appendicitis Carpal tunnel syndrome Chronic headaches Depression Diverticulosis Fibromyalgia IBS (irritable bowel syndrome) Kidney stone Right shoulder injury Vertigo Surgical History History of esophagogastroduodenoscopy (EGD) Hx of appendectomy Hx of carpal tunnel repair (~07/2019) Hx of cholecystectomy Hx of colonoscopy Hx of rotator cuff surgery Hx of shoulder surgery Family History Family History Father Myocardial infarction Mother Congestive heart failure Stomach problems Stomach ulcer Anxiety and depression Myocardial infarction Sister Heart problem Sister Afib Social History Social History Household Members: Family Alcohol intake: current Alcohol intake frequency: does not drink Smoking Status: Current every day smoker Tobacco Type: Cigarette Cigarettes Per Day: 4 Advance Directives: No Advance Directives Information Provided: No Physical Exam Vital Signs: Vital Signs: Last Vital Signs Temp 97.7 F 07/02/20 16:54 Pulse 78 07/02/20 21:02 Resp 15 07/02/20 21:02 BP 131/83 07/02/20 21:02 Pulse Ox 100 07/02/20 16:54 Body Mass Index 30.7 Appearance: Alert. Oriented X3. No acute distress. Eyes: Pupils equal, round and reactive to light. ENT: Pharynx normal. Neck: Normal inspection. Neck supple. No lymph nodes noted. No crepitus CVS: Normal heart rate and rhythm. Pulses normal. Normal S1 and S2, reproducible chest pain with palpation over the sternum Respiratory: No respiratory distress. Breath sounds normal. No Wheezing. No rales Abdomen: Soft and nontender. No rigidity. No distention. good BS x4 Skin: Skin warm and dry. Normal skin color. Normal skin turgor. Extremities: No lower extremity edema. No lower extremity edema. No Lacerations. No Rash Neuro: Oriented X 3. No motor deficit. No sensory deficit. Moving all extermities. No slurred speech. Course Course Course Narrative: I discussed the labs and imaging with the patient, EKG within normal limits. Patient likely having muscular spasms. Troponin negative. MDM - Chest Pain Lab Data Result diagrams: 07/02/20 18:27 07/02/20 18:27 Labs: Lab Results 07/02/20 07/02/20 07/02/20 Range/Units 18:27 18:27 18:27 WBC 12.8 H (4.8-10.8) X10*3/uL RBC 4.63 (4.20-5.50) X10*6/uL Hgb 13.3 (12.0-16.0) g/dl Hct 41.4 (37-47) % MCV 89.4 (80-98) fL MCH 28.7 (27.0-33.0) pg MCHC 32.1 (31.0-35.0) g/dl RDW 14.1 (11.0-16.0) % Plt Count 360 (160-400) X10*3/uL MPV 9.8 (9.4-12.3) fL Immature Gran % (Auto) 0.3 (0.0-0.4) % Neut % (Auto) 64.3 (45-73) % Lymph % (Auto) 25.7 (20-40) % [place] % (Auto) 6.5 (2-11) % Eos % (Auto) 2.7 (0-4) % Baso % (Auto) 0.5 (0-2) % Lymph # (Auto) 3.3 (1.2-4.9) X10*3/uL [place] # (Auto) 0.8 (0.1-1.2) X10*3/uL Eos # (Auto) 0.4 (0.0-0.4) X10*3/uL Baso # (Auto) 0.1 (0.0-0.2) X10*3/uL Abs Immat Gran (auto) 0.04 H (0.00-0.03) X10*3/uL Absolute Neuts (auto) 8.2 (2.0-8.3) X10*3/uL Absolute Nucleated RBC 0.000 (0.0-0.012) X10*3/uL Nucleated RBC % (auto) 0.0 (0.0-0.2) /100WBC Hold Blue Top Sodium 137 (135-145) mmol/L Potassium 4.3 (3.3-5.1) mmol/L Chloride 103 (96-108) mmol/L Carbon Dioxide 27 (22-29) mmol/L Anion Gap 11 L (12-20) BUN 12 (9-16) mg/dL Creatinine 0.82 (0.5-1.4) mg/dL Estim Creat Clear Calc 67.4 Estimated GFR > 60 Random Glucose 91 (60-115) mg/dL Calcium 9.0 (8.4-10.2) mg/dL Magnesium 2.1 (1.6-2.6) mg/dL Troponin I High Sens < 3.5 (<3.5-17.0) ng/L 07/02/20 Range/Units 18:27 WBC (4.8-10.8) X10*3/uL RBC (4.20-5.50) X10*6/uL Hgb (12.0-16.0) g/dl Hct (37-47) % MCV (80-98) fL MCH (27.0-33.0) pg MCHC (31.0-35.0) g/dl RDW (11.0-16.0) % Plt Count (160-400) X10*3/uL MPV (9.4-12.3) fL Immature Gran % (Auto) (0.0-0.4) % Neut % (Auto) (45-73) % Lymph % (Auto) (20-40) % [place] % (Auto) (2-11) % Eos % (Auto) (0-4) % Baso % (Auto) (0-2) % Lymph # (Auto) (1.2-4.9) X10*3/uL [place] # (Auto) (0.1-1.2) X10*3/uL Eos # (Auto) (0.0-0.4) X10*3/uL Baso # (Auto) (0.0-0.2) X10*3/uL Abs Immat Gran (auto) (0.00-0.03) X10*3/uL Absolute Neuts (auto) (2.0-8.3) X10*3/uL Absolute Nucleated RBC (0.0-0.012) X10*3/uL Nucleated RBC % (auto) (0.0-0.2) /100WBC Hold Blue Top SEE NOTE Sodium (135-145) mmol/L Potassium (3.3-5.1) mmol/L Chloride (96-108) mmol/L Carbon Dioxide (22-29) mmol/L Anion Gap (12-20) BUN (9-16) mg/dL Creatinine (0.5-1.4) mg/dL Estim Creat Clear Calc Estimated GFR Random Glucose (60-115) mg/dL Calcium (8.4-10.2) mg/dL Magnesium (1.6-2.6) mg/dL Troponin I High Sens (<3.5-17.0) ng/L Imaging Data Chest x-ray: Radiologist's impression: The lungs are well expanded. No focal infiltrate, effusion, edema, or pneumothorax. Cardiac and mediastinal silhouettes are within normal limits for technique. No acute bony abnormality seen XR/XR chest 2V IMPRESSION: No evidence of acute disease compared to 07/30/2019 Venous US: Radiologist's impression: There is normal venous compression and respiratory variation and augmented flow. The visualized common femoral vein, superficial femoral vein, profunda femoral vein, popliteal vein, and the trifurcation region shows no evidence of deep venous thrombosis. A small 3.2 x 0.7 x 1.1 cm Lee's cyst is present. If the patient's symptoms persist, followup ultrasound in 5 days 7 days might be of value to exclude proximal propagation from a non-visualized calf vein. US/US venous duplex LE LT IMPRESSION: No DVT demonstrated in the left lower extremity. ECG Data ECG #1: Attestation: I personally reviewed and interpreted this ECG as follows: (Normal sinus rhythm, heart rate 83, no ST segment depressions or elevations, no T-wave inversions. QTC 418) Scores Heart Score History: -0- slightly suspicious ECG: -0- normal Age: -1- >45 - <65 Risk factory: -0- no risk factors known Troponin: -0- < or = normal limit Score: 1 Risk: 1.7% Discharge Plan Discharge Clinical Impression: Atypical chest pain Lee's cyst Qualifiers: Laterality: left Qualified Code(s): M71.22 - Synovial cyst of popliteal space [Lee], left knee Patient Disposition: Home, Self-Care Instructions: Bakers Cyst (ED), Chest Pain (ED) Additional Instructions: Please follow-up with your primary care physician tomorrow. If you have any worsening or new symptoms, please return to the emergency room or call 911 Prescriptions: No Action Advair HFA 115-21 mcg/actuation HFA aerosol inhaler 2 puff inhalation BID RF: 0 fluticasone propion-salmeterol [Advair HFA] 115-21 mcg/actuation HFA aerosol inhaler 2 puff PO BID Qty: 12 RF: 3 fluticasone propionate 50 mcg/actuation spray,suspension 1 spray intranasal DAILY Qty: 16 RF: 3 dicyclomine 20 mg tablet 20 mg PO TID Qty: 90 RF: 2 ipratropium bromide 0.03 % spray,non-aerosol 2 spray intranasal BID Qty: 30 RF: 4 levalbuterol tartrate [Xopenex HFA] 45 mcg/actuation HFA aerosol inhaler 1 puff PO Q4H PRN (Reason: for wheezing) Qty: 15 RF: 4 bupropion HCl 150 mg tablet extended release 24 hr 150 mg PO QAM RF: 0 loratadine 10 mg tablet 10 mg PO DAILY RF: 0 montelukast 10 mg tablet 10 mg PO DAILY Qty: 30 RF: 1 albuterol sulfate 90 mcg/actuation HFA aerosol inhaler inhalation RF: 0 albuterol sulfate 2.5 mg /3 mL (0.083 %) solution for nebulization inhalation Q8H PRNRF: 0 fluticasone propion-salmeterol 113-14 mcg/actuation aerosol powdr breath activated 1 inh inhalation BID RF: 0 prednisone 20 mg tablet 20 mg PO DAILY MDD 3 for 3days;2 for 3 days;1 3da 9 Days Qty: 18 RF: 0 metronidazole 500 mg tablet 500 mg PO BID Qty: 10 RF: 0
== END 2020-07-02 21:28 | disposition home or self-care (01) ==
PROVIDERS: Nurse Practitioner Family; Emergency Provider Emergency Medicine; PCP Physician Assistant
DX: R07.89 Other chest pain (principal); M71.22 Synovial cyst of popliteal space [Baker], left knee; R60.0 Localized edema; F17.210 Nicotine dependence, cigarettes, uncomplicated; Z71.6 Tobacco abuse counseling; Z79.899 Other long term (current) drug therapy
CPT/HCPCS: 36415; 71046; 80048; 83735; 84484; 85025; 93005; 93971; 99283; 99284

== ENCOUNTER 2020-07-10 10:20 | Outpatient (REF) | payer MEDICARE, MEDICAID, SELFPAY ==
[2020-07-10 11:23] LABS: Alanine Aminotransferase 14 U/L (0-31); Albumin Level 4.3 g/dL (3.5-5.0); Alkaline Phosphatase 97 U/L (39-117); Amylase 48 U/L (28-100); Anion Gap 12 (12-20); Aspartate Amino Transferase 12 U/L (5-31); Bilirubin Direct 0.2 mg/dL (0.0-0.5); Bilirubin Total 0.4 mg/dL (0.0-1.0); Blood Urea Nitrogen 15 mg/dL (9-16); Calcium 9.4 mg/dL (8.4-10.2); Carbon Dioxide 26 mmol/L (22-29); Chloride 106 mmol/L (96-108); Estimated Glomerular Filt Rate > 60; Glucose Random 66 mg/dL (60-115); Lipase 16 U/L (8-78); Potassium 4.6 mmol/L (3.3-5.1); Sodium 139 mmol/L (135-145); Total Protein 7.2 g/dL (6.5-8.0)
[2020-07-10 11:33] LABS: Osmolality Urine 760 mosm/kg (373-1093)
[2020-07-11 04:03] LABS: Prolactin 2.7 ng/mL
[2020-07-17 19:21] LABS: Copeptin 17 pmol/L (< OR = 14)
== END 2020-07-10 10:21 | disposition home or self-care (01) ==
LOC: HO.LAB 10:20
PROVIDERS: PCP Physician Assistant; Visit Provider Physician Assistant
DX: R10.13 Epigastric pain (principal); R35.8 Other polyuria
CPT/HCPCS: 36415; 80048; 80076; 82150; 83690; 83935; 84146; 84588

== ENCOUNTER → 2020-07-31 14:03 | Outpatient (BNVA) | payer MEDICARE, MEDICAID, SELFPAY | PROVIDERS: PCP Physician Assistant; Visit Provider Urology | DX: Z13.89 Encounter for screening for other disorder (principal) | CPT/HCPCS: Q3014 ==

== ENCOUNTER 2020-08-17 14:11 | Outpatient (REF) | payer MEDICARE, MEDICAID, SELFPAY ==
--- NOTE | ~2020-08-17 | XR_ITS ---
EXAMINATION: XR CHEST CLINICAL INFORMATION: Cough COMPARISON: Previous chest x-ray most recent 07/02/2020 TECHNIQUE: 2 views of the chest were obtained. FINDINGS: No significant abnormality is noted involving the heart, lungs, mediastinum, bony thorax or soft tissues. XR/XR chest 2V IMPRESSION: Unremarkable examination.
--- NOTE | ~2020-08-17 | XR_ITS ---
EXAMINATION: BILATERAL KNEE X-RAY CLINICAL INFORMATION: Pain COMPARISON: Previous right knee x-ray June 2017 TECHNIQUE: 4 views each knee FINDINGS: Bone alignment is normal. No fracture or dislocation is seen. The joint spaces are normal. There is no joint effusion. XR/XR knee LT 2V IMPRESSION: Normal knees.
--- NOTE | ~2020-08-17 | US_ITS ---
EXAMINATION: US RETROPERITONEAL LIMITED (RENAL ONLY) CLINICAL INFORMATION: Renal stone. COMPARISON: Previous abdominal ultrasound April [address] of the abdomen and pelvis August 2017 TECHNIQUE: Grayscale and color imaging of the kidneys FINDINGS: RIGHT KIDNEY: 10.6 x 4.6 x 5.4 cm (SAG x AP x TRV). The kidney is normal in size, contour, and echogenicity. Renal cortical thickness is normal. No calculi or focal parenchymal lesions. No hydronephrosis. LEFT KIDNEY: 9.9 x 5.4 x 5.2 cm (SAG x AP x TRV). The kidney is normal in size, contour, and echogenicity. Renal cortical thickness is normal. No calculi or focal parenchymal lesions. No hydronephrosis. US/US renal BI IMPRESSION: Normal renal ultrasound..
--- NOTE | ~2020-08-17 | XR_ITS ---
EXAMINATION: BILATERAL KNEE X-RAY CLINICAL INFORMATION: Pain COMPARISON: Previous right knee x-ray June 2017 TECHNIQUE: 4 views each knee FINDINGS: Bone alignment is normal. No fracture or dislocation is seen. The joint spaces are normal. There is no joint effusion. XR/XR knee RT 2V IMPRESSION: Normal knees.
--- NOTE | 2020-08-17 14:57 | ECG_ITS ---
Test Reason : PREOP Blood Pressure : / mmHG Vent. Rate : 084 BPM Atrial Rate : 084 BPM P-R Int : 158 ms QRS Dur : 082 ms QT Int : 350 ms P-R-T Axes : 064 044 058 degrees QTc Int : 413 ms Normal sinus rhythm Possible Left atrial enlargement Borderline ECG When compared with ECG of 02-JUL-2020 18:02, No significant change was found Referred By: Nia Chauhan Electronically Signed By:JUNG OSMAN
== END 2020-08-17 14:12 | disposition home or self-care (01) ==
LOC: HO.US 14:11
PROVIDERS: PCP Physician Assistant; Visit Provider Urology
DX: N20.0 Calculus of kidney (principal); N32.81 Overactive bladder; M25.561 Pain in right knee; M25.562 Pain in left knee; R05 Cough; K62.3 Rectal prolapse
CPT/HCPCS: 71046; 73560; 76775; 93005

== ENCOUNTER 2020-08-22 08:41 | Outpatient (REF) | payer MEDICARE, MEDICAID, SELFPAY ==
[2020-08-22 09:37] LABS: MANUAL DIFF FLAG NO
[2020-08-22 09:48] LABS: Basophils Absolute Auto 0.1 X10*3/uL (0.0-0.2); Basophils Percent Auto 0.5 % (0-2); Eosinophils Absolute Auto 0.4 X10*3/uL (0.0-0.4); Eosinophils Percent Auto 3.4 % (0-4); Hematocrit 45.5 % (37-47); Hemoglobin 14.5 g/dl (12.0-16.0); Imm Gran Abs Auto 0.03 X10*3/uL (0.00-0.03); Imm Gran Pct Auto 0.3 % (0.0-0.4); Lymphocytes Absolute Auto 2.2 X10*3/uL (1.2-4.9); Lymphocytes Percent Auto 21.3 % (20-40); Mean Corpuscular HGB Conc 31.9 g/dl (31.0-35.0); Mean Corpuscular Hemoglobin 28.4 pg (27.0-33.0); Mean Corpuscular Volume 89.2 fL (80-98); Mean Platelet Volume 10.3 fL (9.4-12.3); Monocytes Absolute Auto 0.8 X10*3/uL (0.1-1.2); Monocytes Percent Auto 7.8 % (2-11); Neutrophils Absolute Auto 6.8 X10*3/uL (2.0-8.3); Neutrophils Percent Auto 66.7 % (45-73); Platelet Count 354 X10*3/uL (160-400); White Blood Count 10.2 X10*3/uL (4.8-10.8)
[2020-08-22 10:12] LABS: Alanine Aminotransferase 16 U/L (0-31); Albumin Level 4.3 g/dL (3.5-5.0); Alkaline Phosphatase 96 U/L (39-117); Anion Gap 15 (12-20); Aspartate Amino Transferase 15 U/L (5-31); Bilirubin Total 0.3 mg/dL (0.0-1.0); Blood Urea Nitrogen 27 mg/dL (9-16); Calcium 9.6 mg/dL (8.4-10.2); Carbon Dioxide 23 mmol/L (22-29); Chloride 105 mmol/L (96-108); Cholesterol 228 mg/dL; Estimated Glomerular Filt Rate > 60; Glucose Fasting 107 mg/dL (60-99); HDL Cholesterol 51 mg/dL; LDL Cholesterol Calculated 158 mg/dl; Potassium 5.2 mmol/L (3.3-5.1); Sodium 138 mmol/L (135-145); Total Protein 7.2 g/dL (6.5-8.0); Triglycerides 98 mg/dL
[2020-08-26 20:17] LABS: Mixing Study - PT 11.1 sec (9.0-11.5); PTT LA 33 sec (< OR = 40)
== END 2020-08-22 08:42 | disposition home or self-care (01) ==
LOC: HO.LAB 08:41
PROVIDERS: PCP Physician Assistant; Visit Provider Nurse Practitioner Family
DX: Z01.818 Encounter for other preprocedural examination (principal)
CPT/HCPCS: 36415; 80053; 80061; 85025; 85611; 85732

== ENCOUNTER 2020-08-25 10:57 | Outpatient (REF) | payer MEDICARE, MEDICAID, SELFPAY | END 2020-08-25 10:58 | disposition home or self-care (01) | LOC: HO.LNP 10:57 | PROVIDERS: Visit Provider Physician Assistant | DX: R10.13 Epigastric pain (principal) | CPT/HCPCS: 87338 ==

== ENCOUNTER → 2020-09-04 11:30 | Outpatient (BNVA) | payer MEDICARE, MEDICAID, SELFPAY | PROVIDERS: PCP Physician Assistant; Visit Provider Urology | DX: N20.0 Calculus of kidney (principal); N32.81 Overactive bladder | CPT/HCPCS: Q3014 ==

== ENCOUNTER 2020-10-14 18:48 | Outpatient (REF) | payer MEDICARE, MEDICAID, SELFPAY ==
--- NOTE | ~2020-10-14 | MR_ITS ---
EXAMINATION: MR KNEE WITHOUT CONTRAST, LEFT CLINICAL INFORMATION: Left knee pain and swelling with extension. Evaluate for a meniscal tear. COMPARISON: Left knee radiographs dated 08/17/2020. TECHNIQUE: MRI of the knee without contrast was performed using routine sequences on a high-field scanner. FINDINGS: MENISCI: Medial Meniscus: Intact Lateral Meniscus: Minimal inner margin fraying of the meniscal body. LIGAMENTS: Cruciate: Intact Collateral: Intact EXTENSOR MECHANISM: Intact ARTICULAR CARTILAGE/BONE: Patellofemoral Compartment: Central trochlear articular cartilage signal heterogeneity and surface irregularity. Tiny marginal osteophytes. Medial Compartment: Mild weightbearing articular cartilage signal heterogeneity. Tiny marginal osteophytes. Lateral Compartment: Mild weightbearing articular cartilage signal heterogeneity. Tiny marginal osteophytes. JOINT FLUID AND BURSAE: Small joint effusion and small Lee's cyst. Loose body posterior to the medial meniscus posterior horn measuring 0.6 cm in ML dimension. MR/MR knee LT wo con IMPRESSION: 1. Minimal inner margin fraying of the lateral meniscal body. 2. No acute ligament tear. 3. Minimal tricompartmental arthrosis. Small joint effusion and small Lee's cyst. Loose body posterior to the medial meniscus posterior horn measuring 0.6 cm.
== END 2020-10-14 18:49 | disposition home or self-care (01) ==
LOC: HO.MRI 18:48
PROVIDERS: Visit Provider Physician Assistant
DX: S83.282A Other tear of lateral meniscus, current injury, left knee, initial encounter (principal); X58.XXXA Exposure to other specified factors, initial encounter; Y93.9 Activity, unspecified; Y92.9 Unspecified place or not applicable; Y99.9 Unspecified external cause status
CPT/HCPCS: 73721

== ENCOUNTER → 2020-11-17 09:03 | Outpatient (BNVA) | payer MEDICARE, MEDICAID, SELFPAY | PROVIDERS: PCP Physician Assistant; Visit Provider Orthopaedic Surgery | DX: M22.2X2 Patellofemoral disorders, left knee (principal) | CPT/HCPCS: 99202 ==

== ENCOUNTER 2020-11-20 10:28 | Outpatient (REF) | payer MEDICARE, MEDICAID, SELFPAY ==
[2020-11-21 11:16] LABS: BV Int Neg Control Negative (Negative); BV Int Pos Control Positive (Positive)
== END 2020-11-20 10:29 | disposition home or self-care (01) ==
LOC: HO.LAB 10:28
PROVIDERS: PCP Physician Assistant; Visit Provider Obstetrics & Gynecology
DX: N76.0 Acute vaginitis (principal); B96.89 Other specified bacterial agents as the cause of diseases classified elsewhere
CPT/HCPCS: 87480; 87510; 87660; 99212

== ENCOUNTER 2020-12-16 13:14 | Outpatient (REF) | payer MEDICARE, MEDICAID, SELFPAY ==
--- NOTE | ~2020-12-16 | XR_ITS ---
EXAMINATION: XR FOOT, RIGHT CLINICAL INFORMATION: Injury COMPARISON: None TECHNIQUE: AP, lateral, and oblique views of the right foot. FINDINGS: The bones are normal. No fracture. Alignment is anatomic. Joint spaces are maintained. There are calcaneal spurs. XR/XR foot RT min 3V IMPRESSION: No fracture. Calcaneal spurs.
== END 2020-12-16 13:15 | disposition home or self-care (01) ==
LOC: HO.HMGCX 13:14
PROVIDERS: PCP Physician Assistant; Visit Provider Nurse Practitioner Family
DX: Z20.822 Contact with and (suspected) exposure to COVID-19 (principal); S99.921A Unspecified injury of right foot, initial encounter
CPT/HCPCS: 73630; U0003; U0005

== ENCOUNTER 2020-12-22 07:50 | Outpatient (REF) | payer MEDICARE, MEDICAID, SELFPAY ==
--- NOTE | ~2020-12-22 | US_ITS ---
EXAMINATION: BILATERAL LOWER EXTREMITY VENOUS ULTRASOUND (Reflux Exam) CLINICAL INDICATION: Evaluate for venous reflux COMPARISON: Bilateral lower extremity duplex on 07/02/2020 TECHNIQUE: Color flow triplex imaging and compression Doppler was performed to evaluate both the deep and the superficial systems of the bilateral lower extremities. To evaluate the superficial system, the examination was performed in the upright position. Color-flow Doppler ultrasound and compression ultrasound were utilized. In addition, maneuvers were utilized to demonstrate reflux. FINDINGS: RIGHT: 1. DEEP VENOUS DOPPLER ULTRASOUND: Common Femoral Vein: Compressible, normal respiratory variation and augmented flow. Femoral vein: Compressible, normal color flow and augmentation. Popliteal Vein: Compressible, normal augmentation. Deep Reflux: There is no evidence of reflux in the deep system in either the common femoral vein or the popliteal vein. There is no evidence of a Lee's cyst. 2. SUPERFICIAL VENOUS DOPPLER ULTRASOUND: GREAT SAPHENOUS VEIN: Saphenofemoral junction: 0.93 cm; No evidence of reflux. Proximal thigh: 0.49 cm; No evidence of reflux. Mid thigh: 0.33 cm; No evidence of reflux. Above knee: 0.38 cm; No evidence of reflux. At knee: 0.33 cm; No evidence of reflux. Below knee: 0.23 cm; Reflux time 1284ms Mid calf: 0.23 cm; No evidence of reflux. Ankle: 0.31 cm; No evidence of reflux. DUPLICATED GREAT SAPHENOUS VEIN: None SMALL SAPHENOUS VEIN: Saphenopopliteal junction: 0.35 cm; No evidence of reflux. Mid calf: 0.21 cm; No evidence of reflux. Distal calf: 0.28 cm; No evidence of reflux. VEIN OF GIACOMINI: None Imaged. PERFORATORS: None Imaged VARICOSITIES: None Imaged LEFT: 1. DEEP VENOUS DOPPLER ULTRASOUND: Common Femoral Vein: Compressible, normal respiratory variation and augmented flow. Femoral vein: Compressible, normal color flow and augmentation. Popliteal Vein: Compressible, normal augmentation. Deep Reflux: There is no evidence of reflux in the deep system in either the common femoral vein or the popliteal vein. There is no evidence of a Lee's cyst. 2. SUPERFICIAL VENOUS DOPPLER ULTRASOUND: GREAT SAPHENOUS VEIN: Saphenofemoral junction: 0.73 cm; No evidence of reflux. Proximal thigh: 0.42 cm; No evidence of reflux. Mid thigh: 0.36 cm; No evidence of reflux. Above knee: 0.26 cm; No evidence of reflux. At knee: 0.22 cm; No evidence of reflux. Below knee: 0.22 cm; No evidence of reflux. Mid calf: 0.26 cm; No evidence of reflux. Ankle: 0.16 cm; No evidence of reflux. DUPLICATED GREAT SAPHENOUS VEIN: None SMALL SAPHENOUS VEIN: Saphenopopliteal junction: 0.33 cm; No evidence of reflux. Mid calf: 0.21 cm; No evidence of reflux. Distal calf: 0.15 cm; No evidence of reflux. VEIN OF GIACOMINI: None Imaged. PERFORATORS: Mid calf investor measuring 0.18 cm VARICOSITIES: None Imaged US/US venous duplex LE BI IMPRESSION: No DVT in the bilateral lower extremity. Venous reflux demonstrated in the right great saphenous vein below the knee.
== END 2020-12-22 07:51 | disposition home or self-care (01) ==
LOC: HO.US 07:50
PROVIDERS: Visit Provider Surgery Vascular Surgery
DX: I83.893 Varicose veins of bilateral lower extremities with other complications (principal)
CPT/HCPCS: 93970

== ENCOUNTER 2021-01-14 09:22 | Outpatient (REF) | payer MEDICARE, MEDICAID, SELFPAY ==
[2021-01-14 09:49] LABS: Hemoglobin 13.5 g/dl (12.0-16.0); Mean Corpuscular HGB Conc 31.4 g/dl (31.0-35.0); Mean Corpuscular Hemoglobin 27.4 pg (27.0-33.0); Mean Corpuscular Volume 87.4 fL (80-98); Mean Platelet Volume 9.8 fL (9.4-12.3); Platelet Count 375 X10*3/uL (160-400); Red Blood Count 4.92 X10*6/uL (4.20-5.50); Red Cell Distribution Width 14.1 % (11.0-16.0); White Blood Count 9.6 X10*3/uL (4.8-10.8)
[2021-01-14 10:16] LABS: Alanine Aminotransferase 16 U/L (0-31); Albumin Level 3.9 g/dL (3.5-5.0); Alkaline Phosphatase 93 U/L (39-117); Anion Gap 10 (12-20); Aspartate Amino Transferase 12 U/L (5-31); Bilirubin Total 0.4 mg/dL (0.0-1.0); Blood Urea Nitrogen 13 mg/dL (9-16); Calcium 9.4 mg/dL (8.4-10.2); Carbon Dioxide 25 mmol/L (22-29); Chloride 107 mmol/L (96-108); Cholesterol 200 mg/dL; Estimated Glomerular Filt Rate > 60; Glucose Fasting 94 mg/dL (60-99); HDL Cholesterol 38 mg/dL; LDL Cholesterol Calculated 138 mg/dl; Potassium 4.7 mmol/L (3.3-5.1); Sodium 137 mmol/L (135-145); Total Protein 6.6 g/dL (6.5-8.0); Triglycerides 121 mg/dL
[2021-01-14 10:38] LABS: TSH reflex Free T4 0.72 uIU/mL (0.32-4.0)
== END 2021-01-14 09:23 | disposition home or self-care (01) ==
LOC: HO.LAB 09:22
PROVIDERS: PCP Physician Assistant; Visit Provider Physician Assistant
DX: I10 Essential (primary) hypertension (principal); Z13.1 Encounter for screening for diabetes mellitus; Z13.220 Encounter for screening for lipoid disorders; Z13.29 Encounter for screening for other suspected endocrine disorder
CPT/HCPCS: 36415; 80053; 80061; 84443; 85027

== ENCOUNTER → 2021-01-19 10:05 | Outpatient (BNVA) | payer MEDICARE, MEDICAID, SELFPAY | PROVIDERS: PCP Physician Assistant; Visit Provider Surgery Vascular Surgery | DX: M79.604 Pain in right leg (principal); M79.605 Pain in left leg | CPT/HCPCS: 99212 ==

== ENCOUNTER 2021-01-20 12:32 | Outpatient (REF) | payer MEDICARE, MEDICAID, SELFPAY ==
--- NOTE | ~2021-01-20 | MM_ITS ---
EXAMINATION: MM SCREENING DIGITAL BREAST TOMOSYNTHESIS, BILATERAL CLINICAL INFORMATION: Screening. Asymptomatic. The lifetime risk of breast cancer based on the Tyrer-Cuzick Model is 5%. COMPARISON: Mammography: 04/23/2019, 09/05/2017, 02/23/2017 TECHNIQUE: Digital breast tomosynthesis is performed in both the craniocaudal and mediolateral oblique views along with computer-aided detection (CAD). Synthesized 2D images are generated from the tomosynthesis. FINDINGS: There are scattered areas of fibroglandular density (ACR BI-RADS breast composition Category b). There are no significant masses, abnormal calcifications, or other abnormalities. Scattered parenchymal asymmetries are stable from prior studies. No developing density. Scattered punctate and mildly coarse calcifications are again noted. The axilla and skin contours are unremarkable. MM/MM tomosynthesis screening BI IMPRESSION: No mammographic evidence of malignancy. ASSESSMENT: BI-RADS 2: Benign RECOMMENDATION: Routine annual mammography screening. This patient's information was entered into a reminder system with a target due date for their next mammogram.
== END 2021-01-20 12:33 | disposition home or self-care (01) ==
LOC: HO.MAMMO 12:32
PROVIDERS: PCP Physician Assistant; Visit Provider Physician Assistant
DX: Z12.31 Encounter for screening mammogram for malignant neoplasm of breast (principal)
CPT/HCPCS: 77063; 77067

== ENCOUNTER → 2021-02-16 09:59 | Outpatient (BNVA) | payer MEDICARE, MEDICAID, SELFPAY | PROVIDERS: PCP Physician Assistant; Referring Provider Physician Assistant; Visit Provider Nurse Practitioner | DX: K58.0 Irritable bowel syndrome with diarrhea (principal); K63.89 Other specified diseases of intestine; K21.9 Gastro-esophageal reflux disease without esophagitis; R10.13 Epigastric pain; R14.0 Abdominal distension (gaseous) | CPT/HCPCS: 99212 ==

== ENCOUNTER 2021-02-19 11:11 | Outpatient (REF) | payer MEDICARE, MEDICAID, SELFPAY ==
[2021-02-19 13:01] LABS: Vitamin D 25-OH Total 23.2 ng/mL (>30)
[2021-02-19 13:18] LABS: Folate 5.5 ng/mL (> or = 4.0); Vitamin B12 257 pg/mL (200-900)
[2021-02-25 10:02] LABS: Vitamin B1 8 nmol/L (8-30)
== END 2021-02-19 11:12 | disposition home or self-care (01) ==
LOC: HO.LAB 11:11
PROVIDERS: PCP Physician Assistant; Visit Provider Nurse Practitioner Family
DX: I10 Essential (primary) hypertension (principal)
CPT/HCPCS: 36415; 82306; 82607; 82746; 84425

== ENCOUNTER 2021-02-24 17:04 | Emergency (ER) | payer MEDICARE, MEDICAID, SELFPAY ==
--- NOTE | 2021-02-24 18:10 | ED.SOB ---
HPI - SOB/Dyspnea General Chief Complaint: Upper Respiratory Symptoms Stated Complaint: diff breathing, chest tightness Time Seen by Provider: 02/24/21 17:54 Source: patient Limitations: no limitations History of Present Illness HPI Narrative: This is a 55-year-old female who complains of an intermittent tightness in her chest. She has seen a primary care physician about it and was told that could be asthma. The patient has noted her blood pressure has been high. She has no history of hypertension. She went to [facility] today to be seen and had an EKG, chest x-ray, labs, negative COVID test but never was seen by a provider. She was told that she was not ?an emergency? and so the patient left and came here instead. She denies any fever, URI symptoms, nausea vomiting, leg swelling. She has no prior history of hypertension, is not on any blood pressure medicine Related Data Home Medications Medication Instructions Recorded Confirmed bupropion HCl 150 mg 24 hr tablet, 150 mg PO QAM 03/24/20 02/19/21 extended release loratadine 10 mg tablet 10 mg PO DAILY 03/24/20 02/19/21 albuterol sulfate 90 mcg/actuation INHALATION 05/05/20 02/19/21 aerosol inhaler L.acid,gasseri,plant,rham-B.animalis-cran cap PO 06/17/20 02/19/21 5 billion cell-250mg capsule (up4 Probiotics Women's) Previous Rx's Medication Instructions Recorded fluticasone propionate 50 1 spray INTRANASAL DAILY #16 cap 06/22/20 mcg/actuation nasal spray,suspension albuterol sulfate 2.5 mg INHALATION Q8H PRN 30 Days 07/08/20 #270 ml Xopenex HFA 45 mcg/actuation 1 puff PO Q4H PRN 30 Days #15 g NS 08/14/20 aerosol inhaler (levalbuterol tartrate) tinidazole 500 mg tablet 1 g PO DAILY 5 Days #10 tab 11/20/20 CPAP (CPAP Machine/Device) #1 ea 01/05/21 sertraline 25 mg tablet (Zoloft) 25 mg PO DAILY 30 Days #30 tab 01/05/21 fluticasone propionate 115 2 puff PO BID #12 cap 01/12/21 mcg-salmeterol 21 mcg/actuation HFA inhaler (Advair HFA) ipratropium bromide 21 mcg (0.03 2 spray INTRANASAL BID #30 cap 01/12/21 %) nasal spray fjqlbx-wlffiewd-ietfqzh 1 cap PO QID 30 Days #120 cap 02/16/21 24,000-76,000-120,000 unit capsule,delayed rel (Creon) metronidazole 500 mg tablet 500 mg PO TID 10 Days #30 tab 02/16/21 (Flagyl) hydroxyzine HCl 25 mg tablet 25 mg PO TID PRN #9 tab 02/19/21 prednisone 20 mg tablet 60 mg PO DAILY 3 Days #9 tab 02/19/21 prednisone 20 mg tablet 40 mg PO DAILY #10 tab 02/24/21 Allergies Allergy/AdvReac Type Severity Reaction Status Date / Time calcium [Calcium] Allergy Severe HIVES Verified 02/19/21 10:07 doxycycline [Doxycycline] Allergy Severe FACIAL Verified 02/19/21 10:07 SWELLING, almost killed pt,inhouse for weakness,,incontinence?seizures, almost killed pt,inhouse for weakness,,incontinence?seizures Penicillins Allergy Severe FACIAL Verified 02/19/21 10:07 SWELLING amoxicillin Allergy Unknown throat Verified 02/19/21 10:07 swelling azithromycin [AZITHROMYCIN] Allergy Unknown BLOODY Verified 02/19/21 10:07 DIARRHEA cefuroxime [CEFUROXIME] Allergy Unknown ANGIOEDEMA Verified 02/19/21 10:07 ciprofloxacin [Cipro] Allergy Unknown Unknown Verified 02/19/21 10:07 clindamycin [CLINDAMYCIN] Allergy Unknown ANAPHYLAXIS Verified 02/19/21 10:07 Erythromycin Allergy Unknown diarrhea Verified 02/19/21 10:07 iron Allergy Unknown Unknown Verified 02/19/21 10:07 levofloxacin [Levaquin] Allergy Unknown Unknown Verified 02/19/21 10:07 peanut [Peanut] Allergy Unknown ITCHING Verified 02/19/21 10:07 penicillin V Allergy Unknown ears and Verified 02/19/21 10:07 face swell,throat swell Sulfa (Sulfonamide Allergy Unknown ANAPHYLAXIS, Verified 02/19/21 10:07 Antibiotics) swelling [SULFA(SULFONAMIDE body,welts ANTIBIOTICS)] RAISIN Allergy Unknown ITCHING Uncoded 02/19/21 10:07 TURNIPS Allergy Unknown UNKNOWN Uncoded 02/19/21 10:07 cheetos Allergy itchy, rash Uncoded 02/19/21 10:07 cranberry juice Allergy mouth Uncoded 02/19/21 10:07 itchy, bumps grape juice Allergy mouth Uncoded 02/19/21 10:07 itchy, bumps Review of Systems Review of Systems: Yes all other systems are reviewed and are negative Constitutional: Constitutional: Reports as per HPI and Denies fever(s) Eyes: Eyes: Reports as per HPI and Reports no additional eye complaints ENT: Reports system reviewed and no additional complaints, except as documented, Reports as per HPI, Denies nasal congestion, Denies nasal discharge and Denies sore throat Cardiovascular: Cardiovascular: Reports as per HPI, Reports chest pain (Pressure/tightness) and Reports dyspnea Respiratory: Respiratory: Reports as per HPI, Denies cough and Reports dyspnea Gastrointestinal: Gastrointestinal: Reports as per HPI, Denies abdominal pain, Denies diarrhea and Denies vomiting Genitourinary: Genitourinary: Reports as per HPI, Denies hematuria, Denies urinary frequency and Denies dysuria Musculoskeletal: Musculoskeletal: Reports no additional musculoskeletal complaints and Denies numbness Integumentary/Breasts: Skin/Breast: Reports as per HPI and Denies rash Neurologic: Reports as per HPI, Denies focal weakness, Denies numbness and Denies Sensory deficit (Neuro) Psychiatric: Psychiatric: Reports no additional psychiatric complaints and Reports as per HPI Endocrine: Endocrine: Reports no additional endocrine complaints and Reports as per HPI Hematologic/Lymphatic: Hematologic/Lymphatic: Reports no additional hematologic/lymphatic complaints, Reports as per HPI and Reports other (No peripheral edema) [facility] Past Medical History Medical History (Updated 02/24/21 @ 20:05 by Andrés Blair MD) Appendicitis Bilateral knee pain Carpal tunnel syndrome Chronic headaches Cough Depression Diverticulosis Fibromyalgia IBS (irritable bowel syndrome) Kidney stone Pre-op examination Rectal prolapse Right shoulder injury Vertigo Surgical History History of esophagogastroduodenoscopy (EGD) Hx of appendectomy Hx of carpal tunnel repair (~07/2019) Hx of cholecystectomy Hx of colonoscopy Hx of rotator cuff surgery Hx of shoulder surgery Family History Family History Father Myocardial infarction, Onset Age: 46 Mother Congestive heart failure Stomach problems Stomach ulcer Anxiety and depression Myocardial infarction, Onset Age: 50 Mental health disorder Sister Heart problem Myocardial infarction, Onset Age: 59 Sister Afib Social History Social History Household Members: Family Housing: Apartment Alcohol intake: current Alcohol intake frequency: does not drink Patient Tobacco Use Status: Current everyday Tobacco user Cigarettes Per Day: 4 e-Cigarette/Vaping Use: Never Used Second Hand Smoke Exposure: No Advance Directives: No Advance Directives Information Provided: No Patient : No service: No Current occupational status: disabled 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 Physical Exam Vital Signs: Vital Signs: Last Vital Signs Temp 98 F 02/24/21 19:25 Pulse 86 02/24/21 19:25 Resp 14 02/24/21 19:25 BP 125/80 02/24/21 19:25 Pulse Ox 97 02/24/21 19:25 Body Mass Index 36.1 Const: General: cooperative, no acute distress and alert Orientation/consciousness: patient oriented x3 HENMT: Head: Yes normal to inspection Eyes: General: appearance normal, both eyes and all related structures Eyelids: Yes eyelids normal Conjunctivae: conjunctivae normal Pupils: Equal, round and reactive pupils present Neck: Neck: Yes normal visual inspection and Yes supple Chest: Chest palpation & inspection: normal inspection of the chest Resp: Effort & Inspection: normal respiratory effort Auscultation: not clear to auscultation bilaterally (Mild inspiratory and expiratory wheezes and rhonchi diffusely) Cardio: Rate: regular rate Rhythm: regular rhythm Heart sounds: S1 normal heart sound present, S2 normal heart sound present, no gallops, no murmurs and no rubs GI: Palpation (GI): Soft to palpation, nontender and Other GI palpation findings present (Non-distended) Auscultation: normal bowel sounds Skin: General skin exam: no rashes or lesions noted Neuro: General: patient oriented x3, no focal motor deficits and CN's II-XI intact bilaterally Cranial nerves: Yes Equal, round and reactive pupils present Cognition (Neuro): normal cognition Motor exam (neuro): 5/5 motor strength present throughout Sensory Exam: No Sensory deficit (Neuro) Extrem: General: Yes normal to inspection and Yes no pedal edema Psych: Appearance: grossly normal Affect: normal affect MDM - SOB/Dyspnea MDM Narrative Medical decision making narrative: Records from [facility] from today were obtained. The patient's vital signs at 15:53 were heart rate 85 respiratory rate 18 pulse ox 97% on room air, blood pressure 151/91. The patient's chemistry panel was unremarkable. Troponin was less than 0.01. BNP negative CBC notable for a white count of 12.7 otherwise unremarkable. COVID test negative. Chest x-ray showed no acute abnormality. EKG as interpreted by me showed sinus rhythm with a rate of 88. There were inverted T-waves in leads V1 and V2, possible left atrial enlargement, no ST elevation or depression. Patient does have history of asthma, states she does have a Xopenex inhaler at home as well as an albuterol neb. She did have improvement after the nebulizer treatment here. Patient did have some wheezing initially on exam. She is a smoker and was advised to quit-she has cut down to about 5 cigarettes a day. Patient may have had asthmatic bronchitis. No evidence of pneumonia per the chest x-ray done at [facility] today. Considered prescribing antibiotics however the patient has allergies or intolerances to a very large number of antibiotics, and given this is a believe risk outweighs benefit. Will treat with prednisone. Patient does have history of anxiety and appears to have some anxiety component as well. Patient was concerned about her blood pressure but repeat blood pressure evaluation prior to discharge showed a normal blood pressure Discharge Plan Discharge Clinical Impression: AB (asthmatic bronchitis) Patient Disposition: Home, Self-Care Instructions: Asthma (ED), How to Stop Smoking (ED) Additional Instructions: Quit smoking. Continue your Xopenex inhaler, and nebulizer treatments. Start the prednisone as prescribed. At this point we are going to hold off treating you with antibiotics for possible bronchitis, given your multiple allergies to antibiotics, and the lack of evidence of benefit of treating most bronchitis with antibiotics. Return for any new or worsened symptoms. Follow up with your primary care physician. Prescriptions: New prednisone 20 mg tablet 40 mg PO DAILY Qty: 10 RF: 0 No Action fluticasone propionate 50 mcg/actuation spray,suspension 1 spray intranasal DAILY Qty: 16 RF: 3 levalbuterol tartrate [Xopenex HFA] 45 mcg/actuation HFA aerosol inhaler 1 puff PO Q4H PRN (Reason: for wheezing) 30 Days Qty: 15 RF: 4 Advair HFA 115-21 mcg/actuation HFA aerosol inhaler 2 puff PO BID Qty: 12 RF: 3 ipratropium bromide 21 mcg (0.03 %) spray,non-aerosol 2 spray intranasal BID Qty: 30 RF: 4 albuterol sulfate 2.5 mg /3 mL (0.083 %) solution for nebulization 2.5 mg inhalation Q8H PRN (Reason: shortness of breath or wheezing) 30 Days Qty: 270 RF: 3 bupropion HCl 150 mg tablet extended release 24 hr 150 mg PO QAM RF: 0 loratadine 10 mg tablet 10 mg PO DAILY RF: 0 albuterol sulfate 90 mcg/actuation HFA aerosol inhaler inhalation RF: 0 (DME) CPAP Machine/Device Device See Rx Instructions .Route Qty: 1 RF: 0 sertraline [Zoloft] 25 mg tablet 25 mg PO DAILY 30 Days Qty: 30 RF: 2 prednisone 20 mg tablet 60 mg PO DAILY 3 Days Qty: 9 RF: 0 hydroxyzine HCl 25 mg tablet 25 mg PO TID PRN (Reason: itching) Qty: 9 RF: 0 metronidazole [Flagyl] 500 mg tablet 500 mg PO TID 10 Days Qty: 30 RF: 0 Creon 24,000-76,000 -120,000 unit capsule,delayed release(DR/EC) 1 cap PO QID 30 Days Qty: 120 RF: 3 up4 Probiotics Women's 5 billion cell- 250 mg capsule PO RF: 0 tinidazole 500 mg tablet 1 g PO DAILY 5 Days Qty: 10 RF: 0 Interventions: ED Discharge Assessment Last Done: 02/24/21 20:17 Discharge Date/Time: 02/24/21 20:19
[2021-02-24 18:16] VITALS: BP 143/70; PULSE 86; RESP 18; TEMP 36.7; O2SAT 95; BMI 36.1
[2021-02-24] MEDS: Albuterol/Iprat 2.5/0.5MG 3 ML AMPUL.NEB INHALE (18:24)
[2021-02-24 18:25] VITALS: PULSE 76; O2SAT 93
[2021-02-24 19:25] VITALS: BP 125/80; PULSE 86; RESP 14; TEMP 36.6; O2SAT 97
[2021-02-24] MEDS: predniSONE 20 MG TABLET 40 MG PO (20:14)
== END 2021-02-24 20:19 | disposition home or self-care (01) ==
PROVIDERS: Emergency Provider Emergency Medicine; PCP Physician Assistant
DX: J45.909 Unspecified asthma, uncomplicated (principal); R06.02 Shortness of breath; R07.9 Chest pain, unspecified; Z79.899 Other long term (current) drug therapy
CPT/HCPCS: 94640; 99283; 99284

== ENCOUNTER 2021-03-31 09:20 | Outpatient (REF) | payer MEDICARE, MEDICAID, SELFPAY ==
--- NOTE | ~2021-03-31 | US_ITS ---
EXAMINATION: US RETROPERITONEAL LIMITED (RENAL ONLY) CLINICAL INFORMATION: Calculus of kidney. COMPARISON: Renal ultrasound 08/17/2020. Ultrasound bladder 05/28/2020. X-ray abdomen 07/19/2018. CT abdomen and pelvis 08/30/2017. KUB 03/29/2017. TECHNIQUE: Real-time imaging of the kidneys. FINDINGS: RIGHT KIDNEY: 10.5 x 5.1 x 4.1 cm (SAG x AP x TRV). The kidney is normal in size, contour, and echogenicity. Renal cortical thickness is normal. No calculi or focal parenchymal lesions. No hydronephrosis. LEFT KIDNEY: 10.0 x 5.9 x 5.6 cm (SAG x AP x TRV). The kidney is normal in size, contour, and echogenicity. Renal cortical thickness is normal. No focal parenchymal lesions or hydronephrosis. There is a 0.8 cm hyperechoic structure at the upper pole which could represent a vascular calcification versus a stone. This is not seen on prior. US/US renal BI IMPRESSION: Question of vascular calcification versus stone at the upper pole of the left kidney. No hydronephrosis..
== END 2021-03-31 09:21 | disposition home or self-care (01) ==
LOC: HO.US 09:20
PROVIDERS: PCP Physician Assistant; Visit Provider Urology
DX: N20.0 Calculus of kidney (principal)
CPT/HCPCS: 76775

== ENCOUNTER → 2021-04-08 09:12 | Outpatient (BNVA) | payer MEDICARE, MEDICAID, SELFPAY | PROVIDERS: PCP Physician Assistant; Referring Provider Physician Assistant; Visit Provider Nurse Practitioner | DX: K63.89 Other specified diseases of intestine (principal); K21.9 Gastro-esophageal reflux disease without esophagitis; K58.2 Mixed irritable bowel syndrome; R14.0 Abdominal distension (gaseous); R10.13 Epigastric pain | CPT/HCPCS: 99212 ==

== ENCOUNTER → 2021-04-14 14:31 | Outpatient (BNVA) | payer MEDICARE, MEDICAID, SELFPAY | PROVIDERS: PCP Physician Assistant; Visit Provider Urology | DX: R39.15 Urgency of urination (principal); N20.0 Calculus of kidney; N32.81 Overactive bladder | CPT/HCPCS: 51798; 99212 ==

== ENCOUNTER 2021-04-18 23:19 | Emergency (ER) | payer MEDICARE, MEDICAID, SELFPAY ==
--- NOTE | ~2021-04-18 | XR_ITS ---
EXAMINATION: XR CHEST CLINICAL INFORMATION: Cough COMPARISON: 07/02/2020 TECHNIQUE: Frontal view of the chest was obtained. FINDINGS: Lung volumes are symmetric. No focal consolidation is seen. No evidence of pneumothorax, pleural effusion, or pulmonary edema. The cardiomediastinal contour is unremarkable. No acute osseous findings are seen. XR/XR chest 1V IMPRESSION: No acute cardiopulmonary findings.
[2021-04-19 01:14] VITALS: BP 120/70; PULSE 110; RESP 18; TEMP 37.1; O2SAT 99; BMI 34.9
--- NOTE | 2021-04-19 01:17 | ECG_ITS ---
Test Reason : cough,rib pain Blood Pressure : / mmHG Vent. Rate : 088 BPM Atrial Rate : 088 BPM P-R Int : 168 ms QRS Dur : 084 ms QT Int : 368 ms P-R-T Axes : 061 023 043 degrees QTc Int : 445 ms Normal sinus rhythm Normal ECG When compared with ECG of 17-AUG-2020 15:03, No significant change was found Referred By: Generic ED Physician Electronically Signed By:RENITA HODGSON MD
[2021-04-19 01:44] LABS: MANUAL DIFF FLAG NO
[2021-04-19 01:45] LABS: Basophils Absolute Auto 0.1 X10*3/uL (0.0-0.2); Basophils Percent Auto 0.6 % (0-2); Eosinophils Absolute Auto 0.4 X10*3/uL (0.0-0.4); Eosinophils Percent Auto 2.6 % (0-4); Hematocrit 41.4 % (37.0-47.0); Hemoglobin 13.2 g/dl (12.0-16.0); Imm Gran Abs Auto 0.09 X10*3/uL (0.00-0.03); Imm Gran Pct Auto 0.6 % (0.0-0.4); Lymphocytes Absolute Auto 3.7 X10*3/uL (1.2-4.9); Lymphocytes Percent Auto 24.2 % (20-40); Mean Corpuscular HGB Conc 31.9 g/dl (31.0-35.0); Mean Corpuscular Hemoglobin 27.7 pg (27.0-33.0); Mean Corpuscular Volume 86.8 fL (80.0-98.0); Mean Platelet Volume 9.7 fL (9.4-12.3); Monocytes Absolute Auto 1.2 X10*3/uL (0.1-1.2); Monocytes Percent Auto 7.7 % (2-11); Neutrophils Percent Auto 64.3 % (45-73); Platelet Count 383 X10*3/uL (160-400); Red Blood Count 4.77 X10*6/uL (4.20-5.50); Red Cell Distribution Width 14.1 % (11.0-16.0); White Blood Count 15.5 X10*3/uL (4.8-10.8)
[2021-04-19 02:07] LABS: Anion Gap 16 (12-20); Blood Urea Nitrogen 16 mg/dL (9-16); Calcium 9.3 mg/dL (8.4-10.2); Carbon Dioxide 24 mmol/L (22-29); Chloride 103 mmol/L (96-108); Creatinine Clr Calc Pharmacy 64.9; Estimated Glomerular Filt Rate > 60; Glucose Random 99 mg/dL (60-115); Potassium 4.3 mmol/L (3.3-5.1); Sodium 139 mmol/L (135-145)
[2021-04-19 03:02] VITALS: O2SAT 96
--- NOTE | 2021-04-19 04:11 | ED.URI ---
HPI - URI/Sore Throat General Chief Complaint: Upper Respiratory Symptoms Stated Complaint: cough, right side pain Time Seen by Provider: 04/19/21 04:04 Source: patient Mode of arrival: ambulatory Limitations: no limitations History of Present Illness HPI Narrative: Patient comes emergency room complaining of coughing for approximately 1 month. Patient states that now when she coughs her ribs hurt all over her thorax. Patient denies shortness of breath. Patient denies fever chills, no other symptoms. Related Data Home Medications Medication Instructions Recorded Confirmed bupropion HCl 150 mg 24 hr tablet, 150 mg PO QAM 03/24/20 04/08/21 extended release loratadine 10 mg tablet 10 mg PO DAILY 03/24/20 04/08/21 albuterol sulfate 90 mcg/actuation INHALATION 05/05/20 04/08/21 aerosol inhaler ishaan Landaverde plant,rham-B.animalis-cran cap PO 06/17/20 04/08/21 5 billion cell-250mg capsule (up4 Probiotics Women's) omeprazole 20 mg capsule,delayed 20 mg PO DAILY 04/08/21 04/08/21 release Previous Rx's Medication Instructions Recorded fluticasone propionate 50 1 spray INTRANASAL DAILY #16 cap 06/22/20 mcg/actuation nasal spray,suspension albuterol sulfate 2.5 mg (3 mL) INHALATION Q8H PRN 07/08/20 30 Days #270 ml tinidazole 500 mg tablet 1 g PO DAILY 5 Days #10 tab 11/20/20 CPAP (CPAP Machine/Device) #1 ea 01/05/21 sertraline 25 mg tablet (Zoloft) 25 mg PO DAILY 30 Days #30 tab 01/05/21 fluticasone propionate 115 2 puff PO BID #12 cap 01/12/21 mcg-salmeterol 21 mcg/actuation HFA inhaler (Advair HFA) ipratropium bromide 21 mcg (0.03 2 spray INTRANASAL BID #30 cap 01/12/21 %) nasal spray metronidazole 500 mg tablet 500 mg PO TID 10 Days #30 tab 02/16/21 (Flagyl) hydroxyzine HCl 25 mg tablet 25 mg PO TID PRN #9 tab 02/19/21 Xopenex HFA 45 mcg/actuation 1 puff PO Q4H PRN 30 Days #15 g NS 03/15/21 aerosol inhaler (levalbuterol tartrate) dicyclomine 20 mg tablet 20 mg PO TID #90 tab 03/26/21 peg 3350-electrolytes 236 240 ml PO Q10M 1 Days #4000 ml 04/08/21 gram-22.74 gram-6.74 gram-5.86 gram solution (Golytely) oxybutynin chloride 5 mg 5 mg PO DAILY 30 Days #30 tab 04/14/21 tablet,extended release 24 hr pyridoxine (vitamin B6) 100 mg 100 mg PO DAILY 90 Days #90 tab 04/14/21 tablet acetaminophen 120 mg-codeine 12 10 ml PO Q4-6H PRN #200 ml 04/19/21 mg/5 mL (5 mL) oral solution Allergies Allergy/AdvReac Type Severity Reaction Status Date / Time calcium [Calcium] Allergy Severe HIVES Verified 04/08/21 09:55 doxycycline [Doxycycline] Allergy Severe FACIAL Verified 04/08/21 09:55 SWELLING, almost killed pt,inhouse for weakness,,incontinence?seizures, almost killed pt,inhouse for weakness,,incontinence?seizures Penicillins Allergy Severe FACIAL Verified 04/08/21 09:55 SWELLING amoxicillin Allergy Unknown throat Verified 04/08/21 09:55 swelling azithromycin [AZITHROMYCIN] Allergy Unknown BLOODY Verified 04/08/21 09:55 DIARRHEA cefuroxime [CEFUROXIME] Allergy Unknown ANGIOEDEMA Verified 04/08/21 09:55 ciprofloxacin [Cipro] Allergy Unknown Unknown Verified 04/08/21 09:55 clindamycin [CLINDAMYCIN] Allergy Unknown ANAPHYLAXIS Verified 04/08/21 09:55 Erythromycin Allergy Unknown diarrhea Verified 04/08/21 09:55 iron Allergy Unknown Unknown Verified 04/08/21 09:55 levofloxacin [Levaquin] Allergy Unknown Unknown Verified 04/08/21 09:55 peanut [Peanut] Allergy Unknown ITCHING Verified 04/08/21 09:55 penicillin V Allergy Unknown ears and Verified 04/08/21 09:55 face swell,throat swell Sulfa (Sulfonamide Allergy Unknown ANAPHYLAXIS, Verified 04/08/21 09:55 Antibiotics) swelling [SULFA(SULFONAMIDE body,welts ANTIBIOTICS)] RAISIN Allergy Unknown ITCHING Uncoded 02/19/21 10:07 TURNIPS Allergy Unknown UNKNOWN Uncoded 02/19/21 10:07 cheetos Allergy itchy, rash Uncoded 02/19/21 10:07 cranberry juice Allergy mouth Uncoded 02/19/21 10:07 itchy, bumps grape juice Allergy mouth Uncoded 02/19/21 10:07 itchy, bumps Review of Systems Review of Systems: Constitutional : No Weight loss, No Fever, No Chills, No Night Sweats, No Fatigue, No Malaise ENT/Mouth : No Hearing loss, No Ear Pain, No Nasal Congestion, No Sinus Pain, No Hoarseness, No sore throat, No Rhinorrhea, No Swallowing Difficulty Eyes: No Eye Pain, No Swelling, No Redness, No Foreign Body, No Discharge, No Vision Changes Cardiovascular : No Chest Pain, No SOB, No Dyspnea on Exertion, No Orthopnea, No Edema, No Palpitations Respiratory : Complaining of Cough for 1 month triggering rib pain bilaterally. No Sputum, No Wheezing, No Smoke Exposure, No Dyspnea Gastrointestinal : No Nausea, No Vomiting, No Diarrhea, No Constipation, No abdominal Pain, No Hematochezia, No Melena Genitourinary : no irregular bleeding, No Dysuria, No Urinary Frequency, No Hematuria, No Urinary Incontinence, No Urgency, No Flank Pain, No Urinary Flow Changes, No Hesitancy Musculoskeletal : No joint pain, No Myalgias, No Joint Swelling Skin : No Skin Lesions, No rash Neuro : No Weakness, No Numbness, No Paresthesias, No Loss of Consciousness, No Dizziness, No Headache Psych : No Anxiety/Panic, No Depression, No SI/HI/AH/VH, No Social Issues, Heme/Lymph: No Bruising, No Bleeding,No Lymphadenopathy Endocrine : No Polyuria, No Polydipsia, No Temperature Intolerance REPLACED BY [facility] Past Medical History Medical History Appendicitis Bilateral knee pain Carpal tunnel syndrome Chronic headaches Cough Depression Diverticulosis Fibromyalgia Kidney stone Pre-op examination Rectal prolapse Right shoulder injury Vertigo Surgical History History of esophagogastroduodenoscopy (EGD) Hx of appendectomy Hx of carpal tunnel repair (~07/2019) Hx of cholecystectomy Hx of colonoscopy Hx of rotator cuff surgery Hx of shoulder surgery Family History Family History Father Myocardial infarction, Onset Age: 46 Mother Congestive heart failure Stomach problems Stomach ulcer Anxiety and depression Myocardial infarction, Onset Age: 50 Mental health disorder Sister Heart problem Myocardial infarction, Onset Age: 59 Sister Afib Social History Social History Household Members: Family Housing: Apartment Alcohol intake: current Alcohol intake frequency: does not drink Patient Tobacco Use Status: Current everyday Tobacco user Cigarettes Per Day: 4 e-Cigarette/Vaping Use: Never Used Second Hand Smoke Exposure: No Advance Directives: No Advance Directives Information Provided: Yes Patient : No service: No Current occupational status: disabled 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 Oriented X3. No acute distress. Eyes: Pupils equal, round and reactive to light. ENT: Pharynx normal. Neck: Normal inspection. Neck supple. No lymph nodes noted. No crepitus CVS: Normal heart rate and rhythm. Pulses normal. Normal S1 and S2 Respiratory: No respiratory distress. Breath sounds normal. No Wheezing. No rales pain to palpation over the ribs front and back. Abdomen: Soft and nontender. No rigidity. No distention. good BS x4 Skin: Skin warm and dry. Normal skin color. Normal skin turgor. Extremities: No lower extremity edema. No lower extremity edema. No Lacerations. No Rash Neuro: Oriented X 3. No motor deficit. No sensory deficit. Moving all extermities. No slurred speech. Course Course Course Narrative: Patient's chest x-ray unremarkable. I discussed with the patient that viral bronchitis may last for several weeks. Patient's pain likely secondary to costochondritis. Patient was given 1 dose of IV Toradol and Tessalon press MDM - URI/Sore Throat Lab Data Result diagrams: 04/19/21 01:39 04/19/21 01:39 Labs: Lab Results 11/22/21 11/22/21 Range/Units 01:39 01:39 WBC 15.5 H (4.8-10.8) X10*3/uL RBC 4.77 (4.20-5.50) X10*6/uL Hgb 13.2 (12.0-16.0) g/dl Hct 41.4 (37.0-47.0) % MCV 86.8 (80.0-98.0) fL MCH 27.7 (27.0-33.0) pg MCHC 31.9 (31.0-35.0) g/dl RDW 14.1 (11.0-16.0) % Plt Count 383 (160-400) X10*3/uL MPV 9.7 (9.4-12.3) fL Immature Gran % (Auto) 0.6 H (0.0-0.4) % Neut % (Auto) 64.3 (45-73) % Lymph % (Auto) 24.2 (20-40) % [place] % (Auto) 7.7 (2-11) % Eos % (Auto) 2.6 (0-4) % Baso % (Auto) 0.6 (0-2) % Lymph # (Auto) 3.7 (1.2-4.9) X10*3/uL [place] # (Auto) 1.2 (0.1-1.2) X10*3/uL Eos # (Auto) 0.4 (0.0-0.4) X10*3/uL Baso # (Auto) 0.1 (0.0-0.2) X10*3/uL Abs Immat Gran (auto) 0.09 H (0.00-0.03) X10*3/uL Absolute Neuts (auto) 10.0 H (2.0-8.3) x10*3/uL Absolute Nucleated RBC 0.000 (0.0-0.012) X10*3/uL Nucleated RBC % (auto) 0.0 (0.0-0.2) /100WBC Sodium 139 (135-145) mmol/L Potassium 4.3 (3.3-5.1) mmol/L Chloride 103 (96-108) mmol/L Carbon Dioxide 24 (22-29) mmol/L Anion Gap 16 (12-20) BUN 16 (9-16) mg/dL Creatinine 0.94 (0.5-1.4) mg/dL Estim Creat Clear Calc 64.9 Estimated GFR > 60 Random Glucose 99 (60-115) mg/dL Calcium 9.3 (8.4-10.2) mg/dL Imaging Data Chest x-ray: Radiologist's impression: Lung volumes are symmetric. No focal consolidation is seen. No evidence of pneumothorax, pleural effusion, or pulmonary edema. The cardiomediastinal contour is unremarkable. No acute osseous findings are seen. XR/XR chest 1V IMPRESSION: No acute cardiopulmonary findings. ? Discharge Plan Discharge Clinical Impression: Viral bronchitis, Costochondritis Patient Disposition: Home, Self-Care Instructions: Costochondritis (ED), Acute Bronchitis (ED) Additional Instructions: Please follow-up with your primary care physician tomorrow. If you have any worsening or new symptoms, please return to the emergency room or call 911 Prescriptions: New acetaminophen-codeine 120 mg-12 mg /5 mL (5 mL) solution 10 ml PO Q4-6H PRN (Reason: pain) Qty: 200 RF: 0 No Action fluticasone propionate 50 mcg/actuation spray,suspension 1 spray intranasal DAILY Qty: 16 RF: 3 Advair HFA 115-21 mcg/actuation HFA aerosol inhaler 2 puff PO BID Qty: 12 RF: 3 ipratropium bromide 21 mcg (0.03 %) spray,non-aerosol 2 spray intranasal BID Qty: 30 RF: 4 levalbuterol tartrate [Xopenex HFA] 45 mcg/actuation HFA aerosol inhaler 1 puff PO Q4H PRN (Reason: for wheezing) 30 Days Qty: 15 RF: 4 dicyclomine 20 mg tablet 20 mg PO TID Qty: 90 RF: 2 albuterol sulfate 2.5 mg /3 mL (0.083 %) solution for nebulization 2.5 mg inhalation Q8H PRN (Reason: shortness of breath or wheezing) 30 Days Qty: 270 RF: 3 bupropion HCl 150 mg tablet extended release 24 hr 150 mg PO QAM RF: 0 loratadine 10 mg tablet 10 mg PO DAILY RF: 0 albuterol sulfate 90 mcg/actuation HFA aerosol inhaler inhalation RF: 0 (DME) CPAP Machine/Device Device See Rx Instructions .Route Qty: 1 RF: 0 sertraline [Zoloft] 25 mg tablet 25 mg PO DAILY 30 Days Qty: 30 RF: 2 hydroxyzine HCl 25 mg tablet 25 mg PO TID PRN (Reason: itching) Qty: 9 RF: 0 metronidazole [Flagyl] 500 mg tablet 500 mg PO TID 10 Days Qty: 30 RF: 0 oxybutynin chloride 5 mg tablet extended release 24hr 5 mg PO DAILY 30 Days Qty: 30 RF: 0 pyridoxine (vitamin B6) 100 mg tablet 100 mg PO DAILY 90 Days Qty: 90 RF: 1 peg 3350-electrolytes [Golytely] 236-22.74-6.74 -5.86 gram recon soln 240 ml PO Q10M 1 Days Qty: 4000 RF: 0 omeprazole 20 mg capsule,delayed release(DR/EC) 20 mg PO DAILY RF: 0 up4 Probiotics Women's 5 billion cell- 250 mg capsule PO RF: 0 tinidazole 500 mg tablet 1 g PO DAILY 5 Days Qty: 10 RF: 0
[2021-04-19] MEDS: Benzonatate 100 MG CAPSULE 200 MG PO (04:27)
[2021-04-19] MEDS: Ketorolac Tromethamine 15 MG/ML VIAL 30 MG IVPUSH (04:27)
[2021-04-19 04:30] VITALS: BP 125/70; PULSE 74; RESP 16; O2SAT 97
== END 2021-04-19 04:35 | disposition home or self-care (01) ==
PROVIDERS: Emergency Provider Emergency Medicine; PCP Physician Assistant
DX: R50.9 Fever, unspecified (principal); F17.210 Nicotine dependence, cigarettes, uncomplicated; Z79.899 Other long term (current) drug therapy; Z71.6 Tobacco abuse counseling
CPT/HCPCS: 36415; 71045; 80048; 85025; 93005; 96374; 99284; J1885

== ENCOUNTER 2021-05-05 13:46 | Outpatient (REF) | payer MEDICARE, MEDICAID, SELFPAY ==
--- NOTE | ~2021-05-05 | US_ITS ---
EXAMINATION: US EXTRACRANIAL CAROTID DUPLEX, BILATERAL CLINICAL INFORMATION: Other specified symptoms and signs involving the circulatory system COMPARISON: None TECHNIQUE: Real-time ultrasound and Doppler techniques (integrating B-mode 2-D vascular images, Doppler spectral analysis and color-flow Doppler imaging) were utilized to interrogate the extracranial carotid arteries, the vertebral arteries and proximal subclavian arteries bilaterally. The degree of stenosis is determined by criteria similar to NASCET. FINDINGS: Right Side: 1. There is mild atherosclerotic plaque seen in the bifurcation/proximal ICA region. 2. The common carotid artery PSV proximally is 85 cm/s and distally 67 cm/s. 3. The proximal internal carotid artery velocities are 108 cm/s systolic and 47 cm/s diastolic. 4. The proximal external carotid artery PSV is 170 cm/s. 5. The vertebral artery shows antegrade flow. 6. The subclavian artery waveforms are normal. Left Side: 1. There is mild atherosclerotic plaque seen in the bifurcation/proximal ICA region. 2. The common carotid artery PSV proximally is 116 cm/s and distally 80 cm/s. 3. The proximal internal carotid artery velocities are 78 cm/s systolic and 26 cm/s diastolic. 4. The proximal external carotid artery PSV is 156 cm/s. 5. The vertebral artery shows antegrade flow. 6. The subclavian artery waveforms are normal. US/US carotid duplex BI IMPRESSION: 1. RIGHT: Minimal, non-hemodynamically significant stenosis of the proximal right internal carotid artery corresponding to a 0-49% stenosis by velocity criteria. 2. LEFT: Minimal, non-hemodynamically significant stenosis of the proximal left internal carotid artery corresponding to a 0-49% stenosis by velocity criteria.
== END 2021-05-05 13:47 | disposition home or self-care (01) ==
LOC: HO.US 13:46
PROVIDERS: PCP Physician Assistant; Visit Provider Physician Assistant
DX: N20.0 Calculus of kidney (principal); R09.89 Other specified symptoms and signs involving the circulatory and respiratory systems
CPT/HCPCS: 93880

== ENCOUNTER 2021-06-03 13:08 | Outpatient (REF) | payer MEDICARE, MEDICAID, SELFPAY ==
[2021-06-04 08:51] LABS: BV Int Neg Control Negative (Negative); BV Int Pos Control Positive (Positive)
== END 2021-06-03 13:09 | disposition home or self-care (01) ==
LOC: HO.LAB 13:08
PROVIDERS: PCP Physician Assistant; Visit Provider Advanced Practice Midwife
DX: N76.0 Acute vaginitis (principal); L29.2 Pruritus vulvae; B96.89 Other specified bacterial agents as the cause of diseases classified elsewhere; F17.210 Nicotine dependence, cigarettes, uncomplicated
CPT/HCPCS: 87480; 87510; 87660; 99212

== ENCOUNTER 2021-06-07 10:39 | Outpatient (REF) | payer MEDICARE, MEDICAID, SELFPAY ==
--- NOTE | 2021-06-07 16:58 | PFT_ITS ---
INDICATION: Cough. SPIROMETRY: The FEV1 to FVC of 80% with an FEV1 of 2.15 L which is 92% predicted and an FVC of 2.7 L which is 91% predicted. No significant response to bronchodilators noted. Maximum voluntary ventilation 99% predicted. LUNG VOLUMES: Total lung capacity 97% predicted with residual volume 112% predicted and an expiratory reserve volume of 22% predicted. DIFFUSION CAPACITY: DLCO 66% predicted. COMPARISONS: None. INTERPRETATION: No obstructive nor restrictive ventilatory defects identified. No significant response to bronchodilators noted. Normal maximum voluntary ventilation. Lung volumes are normal except for decrease in the expiratory reserve volume secondary to likely an elevated BMI; however, the patient has isolated mild diffusion impairment. Need to consider correcting for hemoglobin, can also consider pulmonary vascular conditions. Clinical correlation warranted. Dm Zamora MD MR/MODL / [id number]
== END 2021-06-07 10:40 | disposition home or self-care (01) ==
LOC: HO.RESP 10:39
PROVIDERS: PCP Physician Assistant; Visit Provider Physician Assistant
DX: J40 Bronchitis, not specified as acute or chronic (principal); R05.3 Chronic cough
CPT/HCPCS: 94060; 94727; 94729

== ENCOUNTER 2021-07-29 09:02 | Outpatient (REF) | payer MEDICARE, MEDICAID, SELFPAY ==
[2021-07-29 10:01] LABS: Hematocrit 45.8 % (37.0-47.0); Hemoglobin 14.5 g/dl (12.0-16.0); Mean Corpuscular HGB Conc 31.7 g/dl (31.0-35.0); Mean Corpuscular Hemoglobin 27.6 pg (27.0-33.0); Mean Corpuscular Volume 87.1 fL (80.0-98.0); Platelet Count 384 X10*3/uL (160-400); Red Blood Count 5.26 X10*6/uL (4.20-5.50); Red Cell Distribution Width 14.6 % (11.0-16.0); White Blood Count 10.8 X10*3/uL (4.8-10.8)
[2021-07-29 10:24] LABS: Estimated Average Glucose 114 mg/dL; Hemoglobin A1c % 5.6 %
[2021-07-29 11:05] LABS: Alanine Aminotransferase 19 U/L (0-31); Albumin Level 4.5 g/dL (3.5-5.0); Alkaline Phosphatase 103 U/L (39-117); Anion Gap 13 (12-20); Aspartate Amino Transferase 19 U/L (5-31); Bilirubin Total 0.8 mg/dL (0.0-1.0); Blood Urea Nitrogen 15 mg/dL (9-16); Calcium 10.3 mg/dL (8.4-10.2); Carbon Dioxide 28 mmol/L (22-29); Chloride 104 mmol/L (96-108); Cholesterol 226 mg/dL; Estimated Glomerular Filt Rate > 60; Glucose Fasting 93 mg/dL (60-99); HDL Cholesterol 42 mg/dL; LDL Cholesterol Calculated 161 mg/dl; Potassium 5.3 mmol/L (3.3-5.1); Sodium 140 mmol/L (135-145); Total Protein 7.6 g/dL (6.5-8.0); Triglycerides 115 mg/dL
[2021-07-29 11:26] LABS: TSH reflex Free T4 0.51 uIU/mL (0.32-4.0)
[2021-07-30 10:22] LABS: Immunoglobulin E 323 kU/L (<OR=114)
== END 2021-07-29 09:03 | disposition home or self-care (01) ==
LOC: HO.LAB 09:02
PROVIDERS: Nurse Practitioner Family; PCP Physician Assistant; Visit Provider Physician Assistant
DX: J45.909 Unspecified asthma, uncomplicated (principal); E55.9 Vitamin D deficiency, unspecified; Z13.1 Encounter for screening for diabetes mellitus; Z13.29 Encounter for screening for other suspected endocrine disorder
CPT/HCPCS: 36415; 80053; 80061; 82306; 82785; 83036; 84443; 85027

== ENCOUNTER → 2021-07-30 12:51 | Outpatient (REF) | payer MEDICARE, MEDICAID, SELFPAY ==
--- NOTE | 2021-07-30 12:55 | CA_ITS ---
Transthoracic Echocardiogram Patient (Last, First, Middle): Yomaira Dunn L Gender: Female Date of : 1965 Age: 56 Procedure Date: 07/30/2021 Procedure Type: Transthoracic Echocardiogram Location: OP Height: 152.4 cm Weight: 83.92 kg BSA: 1.81 m2 Heart Rate: bpm BP: 116 / 74 mmHg Needle Process [employer]s Supervisor: GISSELLE Referring MD: Angelo Tejada PA-C Symptoms: R06.02 - Shortness of breath Study Quality: Fair Conclusions: - Normal left ventricular size, thickness, systolic function, and wall motion. The visually estimated ejection fraction is between 60-65%. Diastolic function is normal for age. Borderline global longitudinal strain of -16%. - Normal right ventricular cavity size and systolic function. Findings Left Ventricle Normal left ventricular size, thickness, systolic function, and wall motion. The visually estimated ejection fraction is between 60-65%. Diastolic function is normal for age. Borderline global longitudinal strain of -16%. Right Ventricle Normal right ventricular cavity size and systolic function. Atria Both atria are normal in size. Aortic Valve Normal aortic valve structure and function. Mitral Valve Normal mitral valve structure and function. There is no mitral valve regurgitation. There is no mitral valve stenosis. Pulmonic Valve The pulmonic valve is likely normal. Tricuspid Valve Normal tricuspid valve structure and function. There is trace tricuspid valve regurgitation. Normal right atrial pressure. There is no evidence of pulmonary hypertension. Great Vessels All visible segments of the aorta are normal in size. The visualized portions of the pulmonary artery and branches are normal. Venous The inferior vena cava is normal in size and collapses greater than 50% with inspiration. Pericardium/Pleural There is no evidence of pericardial effusion. Measurements 2D Linear Measurements IVSd: 1.00 0.6-0.9/0.6-1.0 cm LVIDd: 3.79 3.9-5.3/4.2-5.9 cm LVIDd Index: 2.09 2.4-3.2/2.2-3.1 cm/m2 LVIDs: 2.79 2.0-3.6 cm LVPWd: 0.75 0.7-1.1 cm LA Diam: 3.30 2.7-3.8/3.0-4.0 cm LAIDs Index: 1.82 1.5-2.3 cm/m2 LV Mass: 120.22 67-162/88-224 g LV Mass Index: 66.42 43-95/49-115 g/m2 LVOT Diam: 1.90 3.0+(-)1.3 cm 2D Systolic Function EF 4C: 60.30 >55% EF 2C: 63.40 >55% EF BiP: 61.20 >55% Mitral Valve MV Pk E: 0.96 MV PK A: 0.85 MV Decel Time: 227.00 E/A: 1.10 E'Lateral: 10.60 E'Medial: 7.72 E/E' Med: 12.40 E/E' Lat: 9.10 PHT: 66.00 MVA PHT: 3.33 Decel [place]: 4.24 Aortic Valve AoV Pk González: 1.37 AoV Mn González: 0.91 AoV VTI: 0.26 AoV Pk Grad: 8.00 Aov Mn Grad: 4.00 OSCAR Cont.VTI: 2.23 LVOT LVOT Pk González: 1.09 LVOT Mn González: 0.75 LVOT VTI: 0.20 LVOT Pk Grad: 5.00 LVOT Mn Grad: 2.00 LVOT Diam: 1.90 LVOT Area: 2.84 Diastolic Function MV Pk E: 0.96 MV Pk A: 0.85 E/A: 1.10 E'Medial: 7.72 E/E' Med: 12.40 E' Laterial: 10.60 E/E' Lat: 9.10 Right Ventricle TAPSE (mm): 19.60 TVS' González: 12.00 Tricuspid Valve TR Pk González: 0.89 TR Pk Grad: 3.00 RA Press: 3.00 RVSP: 6.00 Great Vessels Aorta Sinus of Valsalva: 2.70 2.0-3.5 cm Ao Asc: 2.90 2.1-3.4 cm Ao Arch: 2.60 Ao Desc: 1.90 Updated in Other Vendor System with Status of Final Rashad Crawley MD electronically signed on 08/01/2021 11:25:28 AM with status of Final
== END ==
LOC: HO.CARD 12:51
PROVIDERS: PCP Physician Assistant; Visit Provider Physician Assistant
DX: R06.02 Shortness of breath (principal)
CPT/HCPCS: 93306; 93356

== ENCOUNTER 2021-08-10 11:40 | Outpatient (REF) | payer MEDICARE, MEDICAID, SELFPAY ==
--- NOTE | ~2021-08-10 | XR_ITS ---
EXAMINATION: XR ABDOMEN COMPLETE CLINICAL INDICATION: R14.0 - Abdominal distension (gaseous) COMPARISON: Radiographs abdomen 07/19/2018; CT abdomen and pelvis 08/30/2017. TECHNIQUE: 2 supine views and 2 upright views of the abdomen are obtained for a total of 4 views. FINDINGS: There is scattered gas in the bowel of normal caliber. There is scattered stool throughout the colon. There is no gaseous dilatation of bowel or abnormal collections of gas. No differential air-fluid levels or free air. The lung bases are clear. There are surgical clips right upper quadrant from prior cholecystectomy. Mild dextrocurvature lumbar spine and degenerative changes are similar to prior exam. There is a chronic right calcification right adnexa is similar to prior exams. XR/XR abdomen 3V IMPRESSION: Unremarkable examination.
[2021-08-10 12:31] LABS: Anion Gap 12 (12-20); Blood Urea Nitrogen 16 mg/dL (9-16); Calcium 9.5 mg/dL (8.4-10.2); Carbon Dioxide 27 mmol/L (22-29); Chloride 106 mmol/L (96-108); Estimated Glomerular Filt Rate 56; Glucose Random 113 mg/dL (60-115); Potassium 4.8 mmol/L (3.3-5.1); Sodium 140 mmol/L (135-145)
[2021-08-11 14:21] LABS: Calcium (PTHI) 9.5 mg/dL (8.6-10.4); PTHI 47 pg/mL (16-77)
[2021-08-19 16:57] LABS: Parathyroid Hormone Related Pr 13 pg/mL (11-20)
== END 2021-08-10 11:41 | disposition home or self-care (01) ==
LOC: HO.XRAY 11:40
PROVIDERS: Nurse Practitioner Family; PCP Physician Assistant; Visit Provider Physician Assistant
DX: E83.52 Hypercalcemia (principal); E87.5 Hyperkalemia; R14.0 Abdominal distension (gaseous)
CPT/HCPCS: 36415; 74021; 80048; 83519; 83970

== ENCOUNTER 2021-09-30 11:13 | Outpatient (REF) | payer MEDICARE, MEDICAID, SELFPAY ==
[2021-09-30 11:50] LABS: Hematocrit 44.6 % (37.0-47.0); Hemoglobin 13.9 g/dl (12.0-16.0); Mean Corpuscular HGB Conc 31.2 g/dl (31.0-35.0); Mean Corpuscular Hemoglobin 27.9 pg (27.0-33.0); Mean Corpuscular Volume 89.6 fL (80.0-98.0); Mean Platelet Volume 10.2 fL (9.4-12.3); Platelet Count 353 X10*3/uL (160-400); Red Blood Count 4.98 X10*6/uL (4.20-5.50); Red Cell Distribution Width 14.3 % (11.0-16.0); White Blood Count 11.1 X10*3/uL (4.8-10.8)
[2021-09-30 11:56] LABS: Estimated Average Glucose 114 mg/dL; Hemoglobin A1c % 5.6 %
[2021-09-30 12:22] LABS: Anion Gap 12 (12-20); Blood Urea Nitrogen 17 mg/dL (9-16); Calcium 9.6 mg/dL (8.4-10.2); Carbon Dioxide 25 mmol/L (22-29); Chloride 106 mmol/L (96-108); Estimated Glomerular Filt Rate > 60; Glucose Random 130 mg/dL (60-115); Potassium 4.7 mmol/L (3.3-5.1); Sodium 138 mmol/L (135-145)
[2021-09-30 12:34] LABS: TSH reflex Free T4 0.48 uIU/mL (0.32-4.0)
[2021-09-30 12:47] LABS: Folate 4.3 ng/mL (> or = 4.0); Vitamin B12 272 pg/mL (200-900)
== END 2021-09-30 11:14 | disposition home or self-care (01) ==
LOC: HO.LAB 11:13
PROVIDERS: PCP Physician Assistant; Visit Provider Physician Assistant
DX: Z01.812 Encounter for preprocedural laboratory examination (principal); Z13.29 Encounter for screening for other suspected endocrine disorder; Z13.1 Encounter for screening for diabetes mellitus; E53.8 Deficiency of other specified B group vitamins; R53.82 Chronic fatigue, unspecified
CPT/HCPCS: 36415; 80048; 82607; 82746; 83036; 84443; 85027

== ENCOUNTER 2021-10-04 11:58 | Outpatient (REF) | payer MEDICARE, MEDICAID, SELFPAY ==
--- NOTE | ~2021-10-04 | US_ITS ---
EXAMINATION: US RETROPERITONEAL LIMITED (RENAL ONLY) CLINICAL INFORMATION: Calculus of kidney. COMPARISON: X-ray abdomen 08/10/2021. Renal ultrasound 03/31/2021 and 08/17/2020. CT abdomen and pelvis 08/30/2017. TECHNIQUE: Real-time imaging of the kidneys. FINDINGS: RIGHT KIDNEY: 11.0 x 5.0 x 5.9 cm (SAG x AP x TRV). The kidney is normal in size, contour, and echogenicity. Renal cortical thickness is normal. No calculi or focal parenchymal lesions. No hydronephrosis. LEFT KIDNEY: 10.0 x 5.2 x 4.3 cm (SAG x AP x TRV). The kidney is normal in size, contour, and echogenicity. Renal cortical thickness is normal. No calculi or focal parenchymal lesions. No hydronephrosis. US/US renal BI IMPRESSION: Unremarkable renal ultrasound.
== END 2021-10-04 11:59 | disposition home or self-care (01) ==
LOC: HO.US 11:58
PROVIDERS: Visit Provider Urology
DX: N20.0 Calculus of kidney (principal)
CPT/HCPCS: 76775

== ENCOUNTER → 2021-10-14 10:56 | Outpatient (BNVA) | payer MEDICARE, MEDICAID, SELFPAY | PROVIDERS: PCP Physician Assistant; Visit Provider Urology | DX: Z13.89 Encounter for screening for other disorder (principal) | CPT/HCPCS: Q3014 ==

== ENCOUNTER 2021-11-25 15:20 | Outpatient (REF) | payer MEDICARE, MEDICAID, SELFPAY ==
--- NOTE | ~2021-11-25 | CT_ITS ---
EXAMINATION: CT SINUS WITHOUT CONTRAST CLINICAL INFORMATION: Sinonasal polyp. COMPARISON: None TECHNIQUE: Axial 2 mm thin and reformatted, 2 mm thin sagittal, and coronal images of sinuses were obtained. This CT examination was performed using dose optimization techniques as appropriate, variously including the following: *Automated exposure control *Adjustment of mA and/or kV according to patient size (this includes techniques or standardized protocols for targeted exams where dose is matched to indication/reason for exam; i.e. extremities or head) *Use of iterative reconstruction technique DLP: 88 mGy-cm FINDINGS: FRONTAL SINUSES AND DRAINAGE PATHWAYS: Normal. MAXILLARY SINUSES AND DRAINAGE PATHWAYS: There is a small polyp or retention cyst, left maxillary sinus. The right maxillary sinus is clear. The drainage pathway is patent. ETHMOID SINUSES: The ethmoid roofs are symmetric, with olfactory fossa depth of 0.3 cm on the right and 0.4 cm on the left. SPHENOID SINUSES AND DRAINAGE PATHWAYS: Normal. The sphenoid ostia are patent. The carotid canals are covered by bone. NASAL CAVITY/NASOPHARYNX: The nasal cavity is clear. There is septal deviation to the right. The nasopharynx is symmetric. Mild [place] bullosa of middle turbinates is noted. ADDITIONAL RELEVANT FINDINGS: No periapical disease is seen. The TMJs articulate normally. The orbits and skull base soft tissues are unremarkable. The middle ear cavities and mastoid air cells are clear. Limited evaluation demonstrates no acute intracranial findings. CT/CT sinus wo con IMPRESSION: Small polyp or retention cyst left maxillary sinus. The rest of the paranasal sinuses are normal.
== END 2021-11-25 15:21 | disposition home or self-care (01) ==
LOC: HO.CT 15:20
PROVIDERS: PCP Physician Assistant; Visit Provider Otolaryngology
DX: J34.2 Deviated nasal septum (principal)
CPT/HCPCS: 70486

== ENCOUNTER 2021-12-01 10:19 | Outpatient (REF) | payer MEDICARE, MEDICAID, SELFPAY ==
[2021-12-01 16:10] LABS: CT PCR NOT DETECTED (Not Detect.); NG PCR NOT DETECTED (Not Detect.)
[2021-12-02 11:06] LABS: BV Int Neg Control Negative (Negative); BV Int Pos Control Positive (Positive)
== END 2021-12-01 10:20 | disposition home or self-care (01) ==
LOC: HO.LAB 10:19
PROVIDERS: Visit Provider Advanced Practice Midwife
DX: N90.89 Other specified noninflammatory disorders of vulva and perineum (principal); Z11.3 Encounter for screening for infections with a predominantly sexual mode of transmission
CPT/HCPCS: 87255; 87480; 87491; 87510; 87591; 87660; 99212

== ENCOUNTER 2022-01-22 08:12 | Outpatient (REF) | payer MEDICARE, MEDICAID, SELFPAY ==
--- NOTE | ~2022-01-22 | XR_ITS ---
EXAMINATION: XR FOOT, RIGHT CLINICAL INFORMATION: Pain COMPARISON: Previous x-ray November 2020 TECHNIQUE: AP, lateral, and oblique views of the right foot. FINDINGS: Bone alignment is normal. No fracture or dislocation is seen. Joint spaces are normal. There are calcaneal spurs. Soft tissues are otherwise normal. XR/XR foot RT 2V IMPRESSION: Calcaneal spurs.
--- NOTE | ~2022-01-22 | XR_ITS ---
EXAMINATION: XR FOOT, LEFT CLINICAL INFORMATION: Plantar foot pain. COMPARISON: Contralateral right foot radiographs 01/22/2022. TECHNIQUE: Left foot is imaged in 3 views. FINDINGS: There is no acute or healing fracture, dislocation, or destructive process. Bony mineralization appears normal. No periarticular demineralization. There is incidental prominent os trigonum at the posterior talus. The retrocalcaneal recess is preserved. There is small to moderate posterior calcaneal spur and moderate to large are plantar calcaneal spur. No erosive change. Subtalar joint is unremarkable. The midfoot and forefoot show no joint narrowing or erosive change. There is benign linear mineralization medial side second MTP likely sequela from remote prior injury/ligamentous strain. There is mild spurring lateral base first MTP. XR/XR foot LT 2V IMPRESSION: -Posterior and plantar calcaneal spurs. -Benign linear calcification medial side second MTP likely sequela from remote ligamentous injury.
== END 2022-01-22 08:13 | disposition home or self-care (01) ==
LOC: HO.XRAY 08:12
PROVIDERS: PCP Physician Assistant; Visit Provider Physician Assistant
DX: M79.671 Pain in right foot (principal); M79.672 Pain in left foot
CPT/HCPCS: 73620

== ENCOUNTER → 2022-02-01 20:30 | Outpatient (REF) | payer MEDICARE, MEDICAID, SELFPAY | LOC: HO.SL 20:30 | PROVIDERS: PCP Physician Assistant; Visit Provider Physician Assistant | DX: G47.33 Obstructive sleep apnea (adult) (pediatric) (principal) | CPT/HCPCS: 95810 ==

== ENCOUNTER 2022-02-14 13:38 | Outpatient (REF) | payer MEDICARE, MEDICAID, SELFPAY ==
--- NOTE | ~2022-02-14 | MM_ITS ---
EXAMINATION: MM SCREENING DIGITAL BREAST TOMOSYNTHESIS, BILATERAL CLINICAL INFORMATION: Screening. Asymptomatic. The lifetime risk of breast cancer based on the Tyrer-Cuzick Model is 5%. COMPARISON: Mammography: 01/20/2021, 04/23/2019, 09/05/2017 TECHNIQUE: Digital breast tomosynthesis is performed in both the craniocaudal and mediolateral oblique views along with computer-aided detection (CAD). Synthesized 2D images are generated from the tomosynthesis. FINDINGS: There are scattered areas of fibroglandular density (ACR BI-RADS breast composition Category b). Parenchymal pattern is similar to prior exams. There are scattered bilateral stable minor asymmetries without developing density or interval mass or architectural abnormality. There are no abnormal calcific. The axilla and skin contours are unremarkable. No significant changes. MM/MM tomosynthesis screening BI IMPRESSION: No mammographic evidence of malignancy. ASSESSMENT: BI-RADS 1: Negative RECOMMENDATION: Routine annual mammography screening. This patient's information was entered into a reminder system with a target due date for their next mammogram.
== END 2022-02-14 13:39 | disposition home or self-care (01) ==
LOC: HO.MAMMO 13:38
PROVIDERS: PCP Physician Assistant; Visit Provider Physician Assistant
DX: Z12.31 Encounter for screening mammogram for malignant neoplasm of breast (principal)
CPT/HCPCS: 77063; 77067

== ENCOUNTER → 2022-02-15 14:33 | Outpatient (BNVA) | payer MEDICARE, MEDICAID, SELFPAY | PROVIDERS: PCP Physician Assistant; Visit Provider Nurse Practitioner Family | DX: G47.33 Obstructive sleep apnea (adult) (pediatric) (principal); E66.09 Other obesity due to excess calories; Z68.31 Body mass index [BMI] 31.0-31.9, adult | CPT/HCPCS: 99202 ==

== ENCOUNTER 2022-02-16 09:17 | Emergency (ER) | payer MEDICARE, MEDICAID, SELFPAY ==
[2022-02-16 09:48] VITALS: BP 150/89; PULSE 90; RESP 12; TEMP 36.5; O2SAT 97; BMI 35.2
--- NOTE | 2022-02-16 10:38 | ED.SKABFB ---
HPI - Skin/Abscess/Foreign Bdy General Chief complaint: Dental/Oral Stated complaint: quest bug bite r jaw area Time Seen by Provider: 02/16/22 10:10 Source: patient Mode of arrival: ambulatory Limitations: no limitations History of Present Illness HPI narrative: 56-year-old female who reports she recently had dental work presenting to the ER with complaints of pain/swelling and redness with a ?lump to the right side of her jaw that she noticed over the past few days worse today. She is unsure if it is related to the dental work or if she has a bug bite. She reports she never gets pimples. She denies any fevers, history of MRSA or any chills, nausea/vomiting or any other symptoms complaints or concerns at this time. MD complaint: abscess/boil Onset (ago): day(s) (Past few days worse today) Location: face Severity: mild Quality: aching and constant Pain Consistency: constant Relieving factors: none Exacerbating factors: palpation Context: none Associated symptoms: denies other symptoms Treatments prior to arrival: none Related Data Home Medications Medication Instructions Recorded Confirmed L.acid,gasseri,plant,rham-B.animalis-cran cap PO 06/17/20 12/02/21 5 billion cell-250mg capsule (up4 Probiotics Women's) ipratropium bromide 21 mcg (0.03 2 spray intranasal BID 11/18/21 12/02/21 %) nasal spray Previous Rx's Medication Instructions Recorded albuterol sulfate 2.5 mg/3 mL 2.5 mg (3 mL) inhalation Q8H PRN 07/12/21 (0.083 %) solution for nebulization shortness of breath or wheezing 30 days #270 mL pyridoxine (vitamin B6) 100 mg 100 mg PO DAILY 90 days #90 tabs 10/14/21 tablet bupropion HCl 150 mg tablet,12 hr 150 mg PO BID 30 days #60 tabs 11/23/21 sustained-release (Wellbutrin SR) fluticasone propionate 115 2 puff PO BID #12 grams 11/23/21 mcg-salmeterol 21 mcg/actuation HFA inhaler (Advair HFA) Xopenex HFA 45 mcg/actuation 2 puff PO Q4H PRN for wheezing 30 12/23/21 aerosol inhaler (levalbuterol days #15 grams tartrate) fluticasone propionate 50 1 spray intranasal BID 30 days #16 01/19/22 mcg/actuation nasal grams spray,suspension (Flonase Allergy Relief) azithromycin 250 mg tablet See Rx Instructions PO .COMPLEX #6 02/16/22 tabs Allergies Allergy/AdvReac Type Severity Reaction Status Date / Time calcium [Calcium] Allergy Severe HIVES Verified 02/15/22 14:50 doxycycline [Doxycycline] Allergy Severe FACIAL Verified 02/15/22 14:50 SWELLING, almost killed pt,inhouse for weakness,,incontinence?seizures, almost killed pt,inhouse for weakness,,incontinence?seizures Penicillins Allergy Severe FACIAL Verified 02/15/22 14:50 SWELLING amoxicillin Allergy Unknown throat Verified 02/15/22 14:50 swelling azithromycin [AZITHROMYCIN] Allergy Unknown BLOODY Verified 02/15/22 14:50 DIARRHEA cefuroxime [CEFUROXIME] Allergy Unknown ANGIOEDEMA Verified 02/15/22 14:50 ciprofloxacin [Cipro] Allergy Unknown Unknown Verified 02/15/22 14:50 clindamycin [CLINDAMYCIN] Allergy Unknown ANAPHYLAXIS Verified 02/15/22 14:50 Erythromycin Allergy Unknown diarrhea Verified 02/15/22 14:50 iron Allergy Unknown Unknown Verified 02/15/22 14:50 levofloxacin [Levaquin] Allergy Unknown Unknown Verified 02/15/22 14:50 peanut [Peanut] Allergy Unknown ITCHING Verified 02/15/22 14:50 penicillin V Allergy Unknown ears and Verified 02/15/22 14:50 face swell,throat swell Sulfa (Sulfonamide Allergy Unknown ANAPHYLAXIS, Verified 02/15/22 14:50 Antibiotics) swelling [SULFA(SULFONAMIDE body,welts ANTIBIOTICS)] RAISIN Allergy Unknown ITCHING Uncoded 02/15/22 14:50 TURNIPS Allergy Unknown UNKNOWN Uncoded 02/15/22 14:50 cheetos Allergy itchy, rash Uncoded 02/15/22 14:50 cranberry juice Allergy mouth Uncoded 02/15/22 14:50 itchy, bumps grape juice Allergy mouth Uncoded 02/15/22 14:50 itchy, bumps Review of Systems Review of Systems: Constitutional : Denies history of same, Denies any other sites involved, Denies IV drug use, Denies history of MRSA, Denies swollen glands, Denies injury, Denies Fever, Denies Chills, + Sig Pain, Denies Systemic symptoms Cardiovascular : No Chest Pain, No SOB Respiratory : No Dyspnea Gastrointestinal : No abdominal pain Musculoskeletal : No Joint Swelling Skin : + abscess with surrounding erythema, No skin laceration, No Foreign bodies, No spreading rash, Denies bites, Denies discharge, Neuro : No Weakness, No Numbness/tingling Psych : No SI/HI/thoughts of self injury Yes all other systems are reviewed and are negative [facility] Past Medical History Attestation statement: The following information was validated with the patient. Source: old records reviewed and nursing notes reviewed Medical History Appendicitis Bilateral knee pain Carpal tunnel syndrome Chronic headaches Cough Depression Diverticulosis Fibromyalgia Kidney stone Pre-op examination Rectal prolapse Right shoulder injury Vertigo Surgical History History of endometrial ablation History of esophagogastroduodenoscopy (EGD) Hx of appendectomy Hx of carpal tunnel repair (~07/2019) Hx of cholecystectomy Hx of colonoscopy Hx of rotator cuff surgery Hx of shoulder surgery Family History Family History Father Myocardial infarction, Onset Age: 46 Mother Congestive heart failure Stomach problems Stomach ulcer Anxiety and depression Myocardial infarction, Onset Age: 50 Mental health disorder Sister Heart problem Myocardial infarction, Onset Age: 59 Sister Afib Brother Throat cancer Lung cancer Social History Social History Household Members: Family Housing: Apartment Alcohol intake: never Patient Tobacco Use Status: Current everyday Tobacco user Tobacco use type: Cigarette Cigarette Packs Per Day: 1 Cigarettes Per Day: 20 Years Smoked: 30 +/- e-Cigarette/Vaping Use: Never Used Second Hand Smoke Exposure: No Substance Use Type: Marijuana Advance Directives: No Advance Directives Information Provided: No service: No Current occupational status: disabled 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 Blood pressure 150/89 Heart rate normal. Respiration rate normal. Temperature normal. Oxygen saturation normal. Appearance: Alert. Oriented X3. No acute distress. Head: Normal external exam. Normocephalic. Atraumatic. Eyes: PERRLA. EOMI. Conjunctiva and sclera normal. Eyelids normal. ENT: Pharynx normal. Uvula midline. Moist mucous membranes. Neck: Normal inspection. Neck supple. FROM. CVS: Normal heart rate and rhythm. Respiratory: No respiratory distress. Painless inspiration. Skin: Skin warm and dry. Normal skin color. Normal skin turgor. To the right mandibular aspect patient has a small fluctuant abscess with mild surrounding erythema. No streaking/induration/foreign bodies or purulent drainage at this time. No additional rashes/lesions/lacerations noted. Extremities: Extremities exhibit normal range of motion. Extremities nontender. Neuro: Oriented X 3. No motor deficit. No sensory deficit. Reflexes normal. Normal steady gait. No focal neuro deficits noted. Vascular: + radial pulses/+ 2 distal pedal pulses/+2 dorsalis pedis b/l. Normal cap refill. No cyanosis noted to upper extremity nails and lower extremity toes nails. Course Course Course Narrative: IMP/Plan: abscess. No systemic toxicity, and pt looks well. + surrounding cellulitis. Not c/w nec fasc/ myositis/ DVT/ osteomyelitis. patient now status post I&D of abscess and patient tolerated procedure well. No complications. No labs or imaging indicated at this time. Will DC home antibiotics and symptomatic treatment instructions return if any new or worsening symptoms to follow up with primary care provider. Patient understands agrees this plan. MDM - Skin/Abscess/Foreign Bdy Medical Records Attestation: I reviewed the patient's medical records. Procedures Abscess I/D Site: face Side (if applicable): right Technique: needle aspiration and incised with blade Amount of fluid expressed (mL): 1 Sent for culture/gram staining?: No Irrigation: Yes Packing used?: none Complications: pain Discharge Plan Discharge Clinical Impression: Abscess of right jaw Patient Disposition: Home, Self-Care Prescriptions: New azithromycin 250 mg tablet See Rx Instructions PO .COMPLEX Qty: 6 0RF Rx Instructions: take 500 mg today (day 1), then 250 mg for 4 days (days 2-5) No Action Advair HFA 115-21 mcg/actuation HFA aerosol inhaler 2 puff PO BID Qty: 12 3RF bupropion HCl [Wellbutrin SR] 150 mg tablet sustained-release 12 hr 150 mg PO BID 30 Days Qty: 60 3RF levalbuterol tartrate [Xopenex HFA] 45 mcg/actuation HFA aerosol inhaler 2 puff PO Q4H PRN (Reason: for wheezing) 30 Days Qty: 15 4RF fluticasone propionate [Flonase Allergy Relief] 50 mcg/actuation spray,suspension 1 spray intranasal BID 30 Days Qty: 16 3RF Rx Instructions: administer into each nostril ipratropium bromide 21 mcg (0.03 %) spray,non-aerosol 2 spray intranasal BID albuterol sulfate 2.5 mg /3 mL (0.083 %) solution for nebulization 2.5 mg inhalation Q8H PRN (Reason: shortness of breath or wheezing) 30 Days Qty: 270 3RF up4 Probiotics Women's 5 billion cell- 250 mg capsule PO pyridoxine (vitamin B6) 100 mg tablet 100 mg PO DAILY 90 Days Qty: 90 3RF Referrals: Angelo Tejada PA-C [Primary Care Provider] - 2 days Print Language: Lithuanian
== END 2022-02-16 11:00 | disposition home or self-care (01) ==
PROVIDERS: Emergency Provider Emergency Medicine; PCP Physician Assistant
DX: L02.01 Cutaneous abscess of face (principal); F17.200 Nicotine dependence, unspecified, uncomplicated
CPT/HCPCS: 10060; 99283

== ENCOUNTER 2022-02-25 14:27 | Outpatient (REF) | payer MEDICARE, MEDICAID, SELFPAY ==
[2022-02-26 14:22] LABS: BV Int Neg Control Negative (Negative); BV Int Pos Control Positive (Positive)
== END 2022-02-25 14:28 | disposition home or self-care (01) ==
LOC: HO.LNP 14:27
PROVIDERS: Visit Provider Advanced Practice Midwife
DX: N89.8 Other specified noninflammatory disorders of vagina (principal); N90.89 Other specified noninflammatory disorders of vulva and perineum
CPT/HCPCS: 87480; 87510; 87660; 99212

== ENCOUNTER 2022-03-23 12:05 | Outpatient (REF) | payer MEDICARE, MEDICAID, SELFPAY | END 2022-03-23 12:06 | disposition home or self-care (01) | LOC: HO.LAB 12:05 | PROVIDERS: Visit Provider Advanced Practice Midwife | DX: L29.2 Pruritus vulvae (principal); M90.8 Osteopathy in diseases classified elsewhere | CPT/HCPCS: 56605; 88305; 88312 ==

== ENCOUNTER → 2022-03-30 15:10 | Outpatient (BNVA) | payer MEDICARE, MEDICAID, SELFPAY | PROVIDERS: PCP Physician Assistant; Visit Provider Advanced Practice Midwife | DX: L90.0 Lichen sclerosus et atrophicus (principal) | CPT/HCPCS: Q3014 ==

== ENCOUNTER 2022-05-13 10:06 | Outpatient (REF) | payer MEDICARE, MEDICAID, SELFPAY ==
[2022-05-13 14:30] LABS: Alanine Aminotransferase 15 U/L (0-31); Albumin Level 4.2 g/dL (3.5-5.0); Alkaline Phosphatase 108 U/L (39-117); Anion Gap 13 (12-20); Aspartate Amino Transferase 14 U/L (5-31); Bilirubin Total 0.5 mg/dL (0.0-1.0); Blood Urea Nitrogen 16 mg/dL (9-16); Calcium 9.9 mg/dL (8.4-10.2); Carbon Dioxide 26 mmol/L (22-29); Chloride 105 mmol/L (96-108); Cholesterol 228 mg/dL; Estimated Glomerular Filt Rate > 60; Glucose Fasting 93 mg/dL (60-99); HDL Cholesterol 47 mg/dL; LDL Cholesterol Calculated 159 mg/dl; Sodium 139 mmol/L (135-145); TSH reflex Free T4 0.63 uIU/mL (0.32-4.0); Triglycerides 110 mg/dL
== END 2022-05-13 10:07 | disposition home or self-care (01) ==
LOC: HO.LAB 10:06
PROVIDERS: PCP Physician Assistant; Visit Provider Physician Assistant
DX: Z13.29 Encounter for screening for other suspected endocrine disorder (principal); Z13.220 Encounter for screening for lipoid disorders; Z13.1 Encounter for screening for diabetes mellitus
CPT/HCPCS: 36415; 80053; 80061; 84443

== ENCOUNTER 2022-05-27 07:38 | Emergency (ER) | payer MEDICARE, MEDICAID, SELFPAY ==
--- NOTE | ~2022-05-27 | XR_ITS ---
EXAMINATION: XR CHEST CLINICAL INFORMATION: Upper respiratory symptoms COMPARISON: Previous chest x-ray March 2021 TECHNIQUE: Frontal view of the chest was obtained. FINDINGS: No significant abnormality is noted involving the heart, lungs, mediastinum, bony thorax or soft tissues. XR/XR chest 1V IMPRESSION: Unremarkable examination.
[2022-05-27 07:40] VITALS: BP 152/82; PULSE 101; RESP 17; TEMP 37; O2SAT 95; BMI 35.2
[2022-05-27 08:17] VITALS: BP 121/85; PULSE 94; RESP 18; TEMP 36.6; O2SAT 96
[2022-05-27 08:29] LABS: Influenza A PCR NEGATIVE (Negative); Influenza B PCR NEGATIVE (Negative); Resp Syncy Virus RNA Qual PCR NEGATIVE (Negative); SARS COV2 PCR INHOUSE NEGATIVE (Negative)
[2022-05-27] MEDS: predniSONE 20 MG TABLET 60 MG PO (09:38)
[2022-05-27 09:49] LABS: Strep A Nucleic Acid Negative (Negative)
--- NOTE | 2022-05-27 09:49 | ED.URI ---
HPI - URI/Sore Throat General Chief Complaint: Upper Respiratory Symptoms Stated Complaint: Cough Sore Throat Time Seen by Provider: 05/27/22 08:40 Source: patient Mode of arrival: ambulatory Limitations: no limitations History of Present Illness HPI Narrative: 57-year-old patient with an extensive past medical history including asthma, chronic cough, and JULIO, presents to the emergency complaints of a sore throat and bilateral ear pain beginning 2 days before and a cough that worsened started on . She states she has been using her prescribed inhalers and updraft treatments with no relief in symptoms. She states she has have difficulty sleeping related to cough and increased sputum production. She describes her sputum as thick white with yellow and brown hard bits which she has difficulty coughing up leading to gagging and nausea when she coughs. She denies any fevers, chills, diarrhea, constipation. MD elicited complaint: cough and sore throat Pertinent past history: asthma and seasonal allergies Onset (ago): day(s) Consistency: constant Severity: moderate Description of mucous: clear and yellow Able to tolerate fluids by mouth: Yes Exacerbating factors: swallowing Relieving factors: nothing Treatments prior to arrival: none Related Data Home Medications Medication Instructions Recorded Confirmed L.acid,gasseri,plant,rham-B.animalis-cran cap PO 06/17/20 05/18/22 5 billion cell-250mg capsule (up4 Probiotics Women's) Previous Rx's Medication Instructions Recorded albuterol sulfate 2.5 mg/3 mL 2.5 mg (3 mL) inhalation Q8H PRN 07/12/21 (0.083 %) solution for nebulization shortness of breath or wheezing 30 days #270 mL pyridoxine (vitamin B6) 100 mg 100 mg PO DAILY 90 days #90 tabs 10/14/21 tablet fluticasone propionate 50 1 spray intranasal BID 30 days #16 01/19/22 mcg/actuation nasal grams spray,suspension (Flonase Allergy Relief) ipratropium bromide 21 mcg (0.03 2 spray intranasal BID 30 days #30 02/22/22 %) nasal spray mL Xopenex HFA 45 mcg/actuation 2 puff PO Q4H PRN for wheezing 30 03/03/22 aerosol inhaler (levalbuterol days #15 grams tartrate) betamethasone, augmented 0.05 % 1 appl topical DAILY 8 weeks #45 03/30/22 topical ointment grams bupropion HCl 150 mg tablet,12 hr 150 mg PO BID 30 days #60 tabs 03/30/22 sustained-release (Wellbutrin SR) fluticasone propionate 115 2 puff PO BID #12 grams 03/30/22 mcg-salmeterol 21 mcg/actuation HFA inhaler (Advair HFA) benzonatate 200 mg capsule 200 mg PO BID PRN cough #10 caps 05/27/22 prednisone 20 mg tablet 60 mg PO DAILY #4 tabs 05/27/22 Allergies Allergy/AdvReac Type Severity Reaction Status Date / Time calcium [Calcium] Allergy Severe HIVES Verified 05/26/22 13:10 doxycycline [Doxycycline] Allergy Severe FACIAL Verified 05/26/22 13:10 SWELLING, almost killed pt,inhouse for weakness,,incontinence?seizures, almost killed pt,inhouse for weakness,,incontinence?seizures Penicillins Allergy Severe FACIAL Verified 05/26/22 13:10 SWELLING amoxicillin Allergy Unknown throat Verified 05/26/22 13:10 swelling azithromycin [AZITHROMYCIN] Allergy Unknown BLOODY Verified 05/26/22 13:10 DIARRHEA cefuroxime [CEFUROXIME] Allergy Unknown ANGIOEDEMA Verified 05/26/22 13:10 ciprofloxacin [Cipro] Allergy Unknown Unknown Verified 05/26/22 13:10 clindamycin [CLINDAMYCIN] Allergy Unknown ANAPHYLAXIS Verified 05/26/22 13:10 Erythromycin Allergy Unknown diarrhea Verified 05/26/22 13:10 iron Allergy Unknown Unknown Verified 05/26/22 13:10 levofloxacin [Levaquin] Allergy Unknown Unknown Verified 05/26/22 13:10 peanut [Peanut] Allergy Unknown ITCHING Verified 05/26/22 13:10 penicillin V Allergy Unknown ears and Verified 05/26/22 13:10 face swell,throat swell Sulfa (Sulfonamide Allergy Unknown ANAPHYLAXIS, Verified 05/26/22 13:10 Antibiotics) swelling [SULFA(SULFONAMIDE body,welts ANTIBIOTICS)] RAISIN Allergy Unknown ITCHING Uncoded 05/26/22 13:10 TURNIPS Allergy Unknown UNKNOWN Uncoded 05/26/22 13:10 cheetos Allergy itchy, rash Uncoded 05/26/22 13:10 cranberry juice Allergy mouth Uncoded 05/26/22 13:10 itchy, bumps grape juice Allergy mouth Uncoded 05/26/22 13:10 itchy, bumps Review of Systems Review of Systems: In addition to documented HPI above, the additional ROS was obtained: Constitutional: No Weight loss, No Fever, No Chills ENT/Mouth: No Sinus Pain, No Hoarseness, No sore throat, No Rhinorrhea, No Swallowing Difficulty Cardiovascular: No edema Respiratory: No Cough, No Sputum, No Wheezing Gastrointestinal: No Vomiting, No Diarrhea, No Constipation, No Abdominal pain Genitourinary: No Dysuria, No Urinary Frequency, No Hematuria, No Urinary Incontinence/retention, No Urgency, No Flank Pain Musculoskeletal: No joint pain, No Myalgias, No Joint Swelling Skin: No Skin Lesions, No rash Neuro: No Weakness, No Numbness, No Paresthesias PMFSH Past Medical History Medical History Appendicitis Bilateral knee pain Carpal tunnel syndrome Chronic headaches Cough Depression Diverticulosis Fibromyalgia Kidney stone Lichen sclerosus Pre-op examination Rectal prolapse Right shoulder injury Vertigo Surgical History History of endometrial ablation History of esophagogastroduodenoscopy (EGD) Hx of appendectomy Hx of carpal tunnel repair (~07/2019) Hx of cholecystectomy Hx of colonoscopy Hx of rotator cuff surgery Hx of shoulder surgery Family History Family History Father Myocardial infarction, Onset Age: 46 Mother Congestive heart failure Stomach problems Stomach ulcer Anxiety and depression Myocardial infarction, Onset Age: 50 Mental health disorder Sister Heart problem Myocardial infarction, Onset Age: 59 Sister Afib Brother Throat cancer Lung cancer Social History Social History Household Members: Family Housing: Apartment Alcohol intake: never Patient Tobacco Use Status: Current everyday Tobacco user Tobacco use type: Cigarette Cigarette Packs Per Day: 1 Cigarettes Per Day: 20 Years Smoked: 30 +/- e-Cigarette/Vaping Use: Never Used Second Hand Smoke Exposure: No Substance Use Type: Marijuana Advance Directives: No Advance Directives Information Provided: Yes service: No Current occupational status: disabled 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 Cognitive needs: No Hearing needs: No Vision needs: Yes (Glasses) Physical Exam Vital Signs: Vital Signs: Last Vital Signs Temp 97.7 F 05/27/22 10:12 Pulse 77 05/27/22 10:12 Resp 18 05/27/22 10:12 BP 142/76 H 05/27/22 10:12 Pulse Ox 97 05/27/22 10:12 O2 Del Method 05/27/22 10:12 BMI result Body Mass Index 35.2 Medications Administered Discontinued Medications Generic Name Dose Route Start Last Admin Trade Name Jacek PRN Reason Stop Dose Admin Prednisone 60 mg 05/27/22 09:15 05/27/22 09:38 Prednisone 20 Mg Tablet PO 05/27/22 09:16 60 mg ONCE ONE Administration Medical Decision Making Medical Decision Making [facility] Narrative: 57-year-old patient with an extensive past medical history including asthma, chronic cough, and JULIO, presents to the emergency complaints of a sore throat and bilateral ear pain beginning 2 days before and a cough that worsened started on . She states she has been using her prescribed inhalers and updraft treatments with no relief in symptoms. LS CTA. Chest xray unremarkable. HPI, PE, and diagnostics consistent with upper respiratory virus or possible bronchitis. Five-day course of prednisone initiated in the ER with plan to continue at home. Due to multiple antibiotic allergies, no antibiotics prescribed at this time. Benzonatate prescribed for control of cough. Low suspicion for pneumonia, costochondritis, or asthma exacerbation. HPI, PE, diagnosis, and plan discussed with patient with no unanswered questions at this time. Educated to return to the emergency department with new, worsening, or concerning emergent symptoms. Recommended follow the primary care provider for further treatment and management. Lab Data Labs: Lab Results 05/27/22 05/27/22 Range/Units 07:47 09:35 Influenza Type A (PCR) NEGATIVE (Negative) Influenza Type B (PCR) NEGATIVE (Negative) RSV RNA Qual (PCR) NEGATIVE (Negative) SARS-CoV-2 RNA (RT-PCR) NEGATIVE (Negative) S. pyogenes GrpA JOHANN Negative (Negative) Radiology Impression Discussion of test interpretation with radiology: I have reviewed the radiologist's reading. Radiologist Impression: EXAMINATION: XR CHEST CLINICAL INFORMATION: Upper respiratory symptoms COMPARISON: Previous chest x-ray March 2021 TECHNIQUE: Frontal view of the chest was obtained. FINDINGS: No significant abnormality is noted involving the heart, lungs, mediastinum, bony thorax or soft tissues. XR/XR chest 1V IMPRESSION: Unremarkable examination. ? Dictated By: Ella Pittman MD Signed By: <Electronically signed by Ella Pittman MD in OV> 05/27/22 0814 DD/ 0759 TD/TT:? Artistic Director: GALILEA Discharge Plan Discharge Clinical Impression: Cough Patient Disposition: Home, Self-Care Instructions: Upper Respiratory Infection (ED), Acute Cough (ED) Prescriptions: New prednisone 20 mg tablet 60 mg PO DAILY Qty: 4 0RF benzonatate 200 mg capsule 200 mg PO BID PRN (Reason: cough) Qty: 10 0RF No Action fluticasone propionate [Flonase Allergy Relief] 50 mcg/actuation spray,suspension 1 spray intranasal BID 30 Days Qty: 16 3RF Rx Instructions: administer into each nostril ipratropium bromide 21 mcg (0.03 %) spray,non-aerosol 2 spray intranasal BID 30 Days Qty: 30 3RF levalbuterol tartrate [Xopenex HFA] 45 mcg/actuation HFA aerosol inhaler 2 puff PO Q4H PRN (Reason: for wheezing) 30 Days Qty: 15 4RF Advair HFA 115-21 mcg/actuation HFA aerosol inhaler 2 puff PO BID Qty: 12 3RF bupropion HCl [Wellbutrin SR] 150 mg tablet sustained-release 12 hr 150 mg PO BID 30 Days Qty: 60 3RF albuterol sulfate 2.5 mg /3 mL (0.083 %) solution for nebulization 2.5 mg inhalation Q8H PRN (Reason: shortness of breath or wheezing) 30 Days Qty: 270 3RF up4 Probiotics Women's 5 billion cell- 250 mg capsule PO pyridoxine (vitamin B6) 100 mg tablet 100 mg PO DAILY 90 Days Qty: 90 3RF betamethasone, augmented 0.05 % ointment 1 appl topical DAILY 56 Days Qty: 45 1RF Rx Instructions: apply a thin a coat to area nightly for two weeks, then every other night for two weeks, then twice a week Referrals: Angelo Tejada PA-C [Primary Care Provider] - Interventions: ED Discharge Assessment Last Done: 05/27/22 10:14 Discharge Date/Time: 05/27/22 10:15 Print Language: Tajik
[2022-05-27 10:12] VITALS: BP 142/76; PULSE 77; RESP 18; TEMP 36.5; O2SAT 97
== END 2022-05-27 10:15 | disposition home or self-care (01) ==
PROVIDERS: Nurse Practitioner Family; Emergency Provider Student in an Organized Health Care Education/Training Program; PCP Physician Assistant
DX: J06.9 Acute upper respiratory infection, unspecified (principal); R05.9 Cough, unspecified; Z20.822 Contact with and (suspected) exposure to COVID-19; Z79.899 Other long term (current) drug therapy
CPT/HCPCS: 0241U; 36415; 71045; 87651; 99283

== ENCOUNTER → 2022-05-31 10:34 | Outpatient (BNVA) | payer MEDICARE, MEDICAID, SELFPAY | PROVIDERS: PCP Physician Assistant; Visit Provider Advanced Practice Midwife | DX: Z01.419 Encounter for gynecological examination (general) (routine) without abnormal findings (principal) | CPT/HCPCS: 99212 ==

== ENCOUNTER 2022-06-07 19:45 | Emergency (ER) | payer MEDICARE, MEDICAID, SELFPAY ==
--- NOTE | 2022-06-07 20:33 | PC.NURSE ---
pt not in waiting room on 2 calls.
== END 2022-06-07 20:35 | disposition left against medical advice (07) ==
PROVIDERS: Emergency Provider Emergency Medicine; PCP Physician Assistant
DX: S59.901A Unspecified injury of right elbow, initial encounter (principal); W17.81XA Fall down embankment (hill), initial encounter; Y93.23 Activity, snow (alpine) (downhill) skiing, snowboarding, sledding, tobogganing and snow tubing; Y92.828 Other wilderness area as the place of occurrence of the external cause; Y99.9 Unspecified external cause status

== ENCOUNTER 2022-06-29 10:46 | Outpatient (REF) | payer MEDICARE, MEDICAID, SELFPAY ==
--- NOTE | ~2022-06-29 | XR_ITS ---
EXAMINATION: XR CHEST CLINICAL INFORMATION: R05.9 - Cough, unspecified COMPARISON: Chest radiographs 05/27/2022, 04/19/2021, 08/17/2020 TECHNIQUE: 2 views of the chest were obtained. FINDINGS: The lungs are clear and there is no airspace consolidation or groundglass opacity. No pleural reaction or effusion. The costophrenic sulci are clear. Heart within normal size. Vascularity normal. The hilar and mediastinal contours and bony structures are stable. XR/XR chest 2V IMPRESSION: Unremarkable examination.
== END 2022-06-29 10:47 | disposition home or self-care (01) ==
LOC: HO.HMGCX 10:46
PROVIDERS: PCP Physician Assistant; Visit Provider Nurse Practitioner Family
DX: R05.9 Cough, unspecified (principal)
CPT/HCPCS: 71046

== ENCOUNTER 2022-06-30 15:54 | Outpatient (REF) | payer MEDICARE, MEDICAID, SELFPAY ==
[2022-06-30 16:55] LABS: MANUAL DIFF FLAG NO
[2022-06-30 17:03] LABS: Basophils Absolute Auto 0.1 X10*3/uL (0.0-0.2); Basophils Percent Auto 0.7 % (0-2); Eosinophils Absolute Auto 0.4 X10*3/uL (0.0-0.4); Eosinophils Percent Auto 3.2 % (0-4); Hematocrit 44.8 % (37.0-47.0); Imm Gran Abs Auto 0.04 X10*3/uL (0.00-0.03); Imm Gran Pct Auto 0.3 % (0.0-0.4); Lymphocytes Absolute Auto 3.2 X10*3/uL (1.2-4.9); Lymphocytes Percent Auto 26.7 % (20-40); Mean Corpuscular HGB Conc 31.3 g/dl (31.0-35.0); Mean Corpuscular Hemoglobin 27.7 pg (27.0-33.0); Mean Corpuscular Volume 88.7 fL (80.0-98.0); Mean Platelet Volume 9.8 fL (9.4-12.3); Monocytes Absolute Auto 0.8 X10*3/uL (0.1-1.2); Monocytes Percent Auto 6.3 % (2-11); Neutrophils Absolute Auto 7.6 x10*3/uL (2.0-8.3); Neutrophils Percent Auto 62.8 % (45-73); Platelet Count 365 X10*3/uL (160-400); Red Blood Count 5.05 X10*6/uL (4.20-5.50); Red Cell Distribution Width 14.4 % (11.0-16.0); White Blood Count 12.2 X10*3/uL (4.8-10.8)
[2022-06-30 17:31] LABS: C Reactive Protein 0.92 mg/dL (< or = 0.50)
== END 2022-06-30 15:55 | disposition home or self-care (01) ==
LOC: HO.LAB 15:54
PROVIDERS: PCP Physician Assistant; Visit Provider Nurse Practitioner
DX: K58.2 Mixed irritable bowel syndrome (principal); R10.13 Epigastric pain; K21.9 Gastro-esophageal reflux disease without esophagitis
CPT/HCPCS: 36415; 85025; 86003; 86140; 99212

== ENCOUNTER 2022-07-11 12:00 | Outpatient (REF) | payer MEDICARE, MEDICAID, SELFPAY ==
[2022-07-11 13:38] LABS: CDiff Gene PCR NEGATIVE (Negative)
[2022-07-11 15:26] LABS: Adenovirus F 40/41 Not Detected (Not Detect.); Astrovirus Not Detected (Not Detect.); Campylobacter Not Detected (Not Detect.); Cryptosporidium Not Detected (Not Detect.); Cyclospora cayetanensis Not Detected (Not Detect.); E. coli EAEC Not Detected (Not Detect.); E. coli EPEC Not Detected (Not Detect.); E. coli ETEC Not Detected (Not Detect.); E. coli STEC Not Detected (Not Detect.); Entamoeba histolytica Not Detected (Not Detect.); Giardia lamblia Not Detected (Not Detect.); Norovirus GI/GII Not Detected (Not Detect.); Plesiomonas shigelloides Not Detected (Not Detect.); Rotavirus A Not Detected (Not Detect.); Salmonella Not Detected (Not Detect.); Sapovirus Not Detected (Not Detect.); Shigella sp./EIEC Not Detected (Not Detect.); Vibrio Not Detected (Not Detect.); Vibrio Cholerae Not Detected (Not Detect.); Yersinia enterocolitica Not Detected (Not Detect.)
== END 2022-07-11 12:01 | disposition home or self-care (01) ==
LOC: HO.LNP 12:00
PROVIDERS: Visit Provider Nurse Practitioner
DX: R19.7 Diarrhea, unspecified (principal)
CPT/HCPCS: 87493; 87507

== ENCOUNTER → 2022-07-14 15:40 | Outpatient (BNVA) | payer MEDICARE, MEDICAID, SELFPAY | PROVIDERS: PCP Physician Assistant; Visit Provider Nurse Practitioner Family | DX: K58.2 Mixed irritable bowel syndrome (principal); R14.0 Abdominal distension (gaseous) | CPT/HCPCS: 99212 ==

== ENCOUNTER 2022-07-16 09:01 | Outpatient (REF) | payer MEDICARE, MEDICAID, SELFPAY ==
[2022-07-16 09:58] LABS: Lipase 23 U/L (8-78)
[2022-07-16 10:30] LABS: Vitamin B12 312 pg/mL (200-900)
[2022-07-18 15:34] LABS: Transglutaminase Ab IgG <1.0 U/mL; Transglutaminase IgA <1.0 U/mL
[2022-07-21 13:44] LABS: Vitamin D 25-OH, D2 <4 ng/mL; Vitamin D 25-OH, D3 16 ng/mL; Vitamin D 25-OH, Total 16 ng/mL (30-100)
== END 2022-07-16 09:02 | disposition home or self-care (01) ==
LOC: HO.LAB 09:01
PROVIDERS: PCP Physician Assistant; Visit Provider Nurse Practitioner Family
DX: R10.9 Unspecified abdominal pain (principal); R19.7 Diarrhea, unspecified; E55.9 Vitamin D deficiency, unspecified
CPT/HCPCS: 36415; 82306; 82607; 82746; 83690; 86364

== ENCOUNTER 2022-07-27 12:47 | Outpatient (REF) | payer MEDICARE, MEDICAID, SELFPAY ==
--- NOTE | 2022-07-27 | EMG_ITS ---
Please see scanned EMG / Nerve Conduction Report. MTDD
== END 2022-07-27 12:48 | disposition home or self-care (01) ==
LOC: HO.NEURO 12:47
PROVIDERS: PCP Physician Assistant; Visit Provider Physician Assistant
DX: G62.89 Other specified polyneuropathies (principal)
CPT/HCPCS: 95885; 95913

== ENCOUNTER 2022-08-10 | Outpatient (REF) | payer MEDICARE, MEDICAID, SELFPAY ==
[2022-08-20 16:59] LABS: Pancreatic Elastase-1 46 mcg/g
== END 2022-08-10 00:01 | disposition home or self-care (01) ==
LOC: HO.LNP
PROVIDERS: Visit Provider Nurse Practitioner Family
DX: R10.9 Unspecified abdominal pain (principal)
CPT/HCPCS: 82656

== ENCOUNTER → 2022-08-12 09:08 | Outpatient (BNVA) | payer MEDICARE, MEDICAID, SELFPAY | PROVIDERS: PCP Physician Assistant; Visit Provider Nurse Practitioner Family | DX: K21.9 Gastro-esophageal reflux disease without esophagitis (principal); K59.01 Slow transit constipation; R19.7 Diarrhea, unspecified; R14.0 Abdominal distension (gaseous) | CPT/HCPCS: 99212 ==

== ENCOUNTER → 2022-08-25 09:52 | Outpatient (BNVA) | payer MEDICARE, MEDICAID, SELFPAY | PROVIDERS: PCP Physician Assistant; Referring Provider Physician Assistant; Visit Provider Nurse Practitioner Family | DX: K21.9 Gastro-esophageal reflux disease without esophagitis (principal); K86.81 Exocrine pancreatic insufficiency; K59.04 Chronic idiopathic constipation; K58.2 Mixed irritable bowel syndrome; R10.13 Epigastric pain; R14.0 Abdominal distension (gaseous) | CPT/HCPCS: 99212 ==

== ENCOUNTER 2022-09-06 09:42 | Outpatient (REF) | payer MEDICARE, MEDICAID, SELFPAY ==
[2022-09-07 13:01] LABS: BV Int Neg Control Negative (Negative); BV Int Pos Control Positive (Positive)
== END 2022-09-06 09:43 | disposition home or self-care (01) ==
LOC: HO.LAB 09:42
PROVIDERS: PCP Physician Assistant; Visit Provider Advanced Practice Midwife
DX: Z01.419 Encounter for gynecological examination (general) (routine) without abnormal findings (principal); N89.8 Other specified noninflammatory disorders of vagina
CPT/HCPCS: 87480; 87510; 87624; 87660; 88142; 99212

== ENCOUNTER 2022-09-06 10:40 | Outpatient (REF) | payer MEDICARE, MEDICAID, SELFPAY ==
[2022-09-07 19:43] LABS: HPV mRNA E6/E7 rflx Not Detected (Not Detected)
== END 2022-09-06 10:41 | disposition home or self-care (01) ==
LOC: HO.LNP 10:40
PROVIDERS: Visit Provider Advanced Practice Midwife
DX: Z13.89 Encounter for screening for other disorder (principal)
CPT/HCPCS: 87624; 88142

== ENCOUNTER 2022-09-15 10:19 | Outpatient (REF) | payer MEDICARE, MEDICAID, SELFPAY ==
--- NOTE | ~2022-09-15 | US_ITS ---
EXAMINATION: ANKLE-BRACHIAL INDICES SINGLE LEVEL PULSE VOLUME RECORDING ARTERIAL DUPLEX BILATERAL LEGS CLINICAL INFORMATION: Peripheral vascular disease COMPARISON: None TECHNIQUE: Ankle-brachial indices and PVR at the ankle were obtained. Duplex Doppler of the bilateral lower extremity arterial systems was performed. FINDINGS: RIGHT: Ankle-brachial index: 1.15 PVR: Normal Common femoral: PSV 188 cm/s. Triphasic waveform. Deep femoral: PSV 87 cm/s. Triphasic waveform. Proximal superficial femoral: PSV 117 cm/s. Triphasic waveform. Mid superficial femoral: PSV 115 cm/s. Triphasic waveform. Distal superficial femoral: PSV 78 cm/s. Triphasic waveform. Popliteal: PSV 61 cm/s. Biphasic waveform. Posterior tibial: PSV 84 cm/s. Biphasic waveform. Peroneal: PSV 42 cm/s. Biphasic waveform. LEFT: Ankle-brachial index: 1.18 PVR: Normal Common femoral: PSV 169 cm/s. Triphasic waveform. Deep femoral: PSV 80 cm/s. Triphasic waveform. Proximal superficial femoral: PSV 100 cm/s. Triphasic waveform. Mid superficial femoral: PSV 100 cm/s. Triphasic waveform. Distal superficial femoral: PSV 80 cm/s. Triphasic waveform. Popliteal: PSV 62 cm/s. Triphasic waveform. Posterior tibial: PSV 89 cm/s. Biphasic waveform. Peroneal: PSV 47 cm/s. Triphasic waveform. US/US arterial duplex LE BI IMPRESSION: Right: No evidence of hemodynamically significant peripheral arterial disease. Left: No evidence of hemodynamically significant peripheral arterial disease.
--- NOTE | ~2022-09-15 | US_ITS ---
EXAMINATION: ANKLE-BRACHIAL INDICES SINGLE LEVEL PULSE VOLUME RECORDING ARTERIAL DUPLEX BILATERAL LEGS CLINICAL INFORMATION: Peripheral vascular disease COMPARISON: None TECHNIQUE: Ankle-brachial indices and PVR at the ankle were obtained. Duplex Doppler of the bilateral lower extremity arterial systems was performed. FINDINGS: RIGHT: Ankle-brachial index: 1.15 PVR: Normal Common femoral: PSV 188 cm/s. Triphasic waveform. Deep femoral: PSV 87 cm/s. Triphasic waveform. Proximal superficial femoral: PSV 117 cm/s. Triphasic waveform. Mid superficial femoral: PSV 115 cm/s. Triphasic waveform. Distal superficial femoral: PSV 78 cm/s. Triphasic waveform. Popliteal: PSV 61 cm/s. Biphasic waveform. Posterior tibial: PSV 84 cm/s. Biphasic waveform. Peroneal: PSV 42 cm/s. Biphasic waveform. LEFT: Ankle-brachial index: 1.18 PVR: Normal Common femoral: PSV 169 cm/s. Triphasic waveform. Deep femoral: PSV 80 cm/s. Triphasic waveform. Proximal superficial femoral: PSV 100 cm/s. Triphasic waveform. Mid superficial femoral: PSV 100 cm/s. Triphasic waveform. Distal superficial femoral: PSV 80 cm/s. Triphasic waveform. Popliteal: PSV 62 cm/s. Triphasic waveform. Posterior tibial: PSV 89 cm/s. Biphasic waveform. Peroneal: PSV 47 cm/s. Triphasic waveform. US/US PARTH complete IMPRESSION: Right: No evidence of hemodynamically significant peripheral arterial disease. Left: No evidence of hemodynamically significant peripheral arterial disease.
== END 2022-09-15 10:20 | disposition home or self-care (01) ==
LOC: HO.US 10:19
PROVIDERS: PCP Physician Assistant; Visit Provider Surgery Vascular Surgery
DX: I70.213 Atherosclerosis of native arteries of extremities with intermittent claudication, bilateral legs (principal)
CPT/HCPCS: 93923; 93925

== ENCOUNTER → 2022-09-23 11:35 | Outpatient (BNVA) | payer MEDICARE, MEDICAID, SELFPAY | PROVIDERS: PCP Physician Assistant; Visit Provider Dietitian, Registered | DX: K58.2 Mixed irritable bowel syndrome (principal); E66.09 Other obesity due to excess calories; Z68.34 Body mass index [BMI] 34.0-34.9, adult; Z71.3 Dietary counseling and surveillance | CPT/HCPCS: 97802 ==

== ENCOUNTER → 2022-09-29 08:50 | Outpatient (BNVA) | payer MEDICARE, MEDICAID, SELFPAY | PROVIDERS: PCP Physician Assistant; Visit Provider Nurse Practitioner Family ==

== ENCOUNTER 2022-09-29 10:14 | Emergency (ER) | payer MEDICARE, MEDICAID, SELFPAY ==
--- NOTE | 2022-09-29 10:17 | ECG_ITS ---
Test Reason : CHEST PAIN Blood Pressure : / mmHG Vent. Rate : 078 BPM Atrial Rate : 078 BPM P-R Int : 154 ms QRS Dur : 090 ms QT Int : 372 ms P-R-T Axes : 059 030 079 degrees QTc Int : 424 ms Normal sinus rhythm Nonspecific ST abnormality Cannot rule out Anterior infarct , age undetermined Abnormal ECG When compared with ECG of 19-APR-2021 02:18, No significant change was found Referred By: Generic ED Physician Electronically Signed By:ASHLY VELASQUEZ MD
[2022-09-29 10:23] VITALS: BP 173/77; PULSE 80; RESP 18; TEMP 36.6; O2SAT 97; BMI 35.0
[2022-09-29 11:19] LABS: Hematocrit 48.2 % (37.0-47.0); Hemoglobin 15.4 g/dl (12.0-16.0); Mean Corpuscular Hemoglobin 27.9 pg (27.0-33.0); Mean Corpuscular Volume 87.5 fL (80.0-98.0); Mean Platelet Volume 9.6 fL (9.4-12.3); Platelet Count 360 X10*3/uL (160-400); Red Blood Count 5.51 X10*6/uL (4.20-5.50); Red Cell Distribution Width 14.6 % (11.0-16.0); White Blood Count 12.9 X10*3/uL (4.8-10.8)
[2022-09-29 11:28] LABS: D Dimer High Sensitivity < 150 NG/ML
[2022-09-29 11:30] LABS: Alanine Aminotransferase 22 U/L (0-31); Albumin Level 4.4 g/dL (3.5-5.0); Alkaline Phosphatase 121 U/L (39-117); Anion Gap 13 (12-20); Aspartate Amino Transferase 18 U/L (5-31); Bilirubin Total 0.3 mg/dL (0.0-1.0); Blood Urea Nitrogen 20 mg/dL (9-16); Calcium 9.9 mg/dL (8.4-10.2); Carbon Dioxide 26 mmol/L (22-29); Chloride 106 mmol/L (96-108); Creatinine Clr Calc Pharmacy 66.5; Estimated Glomerular Filt Rate > 60; Glucose Random 93 mg/dL (60-115); Sodium 140 mmol/L (135-145); Total Protein 7.5 g/dL (6.5-8.0)
[2022-09-29 13:59] LABS: Troponin-I High Sensitivity 196.9 ng/L (<3.5-17.0)
--- NOTE | 2022-09-29 13:59 | ED_ITS ---
HPI - Chest Pain General Chief Complaint: Chest Pain <Penelope Sousa NP - Last Filed: 09/29/22 16:37> Stated Complaint: chest pain <Penelope Sousa NP - Last Filed: 09/29/22 16:37> Time Seen by Provider: 09/29/22 14:07 <Penelope Sousa NP - Last Filed: 09/29/22 16:37> Source: patient <Penelope Sousa NP - Last Filed: 09/29/22 16:37> Mode of arrival: ambulatory <Penelope Sousa NP - Last Filed: 09/29/22 16:37> Limitations: no limitations <Penelope Sousa NP - Last Filed: 09/29/22 16:37> History of Present Illness HPI narrative: 49-year-old female with a history of tobacco smoking who presents to the ER with intermittent jaw pain for the last 2 days with sudden onset of severe chest pain at 10:20 this morning with radiation to both of her shoulders wall the patient was standing. Patient denies any associated shortness of breath, vomiting or diaphoresis when the pain began. She now tells me that the pain is lasted but she still has some chest heaviness centrally with no other associated symptoms. Patient denies any known coronary artery disease. She does have significant family history of coronary artery disease. <Penelope Sousa NP - Last Filed: 09/29/22 16:37> Related Data Home Medications: Home Medications Medication Instructions Recorded Confirmed L.acid,gasseri,plant,rham-B.animalis-cran 1 cap PO DAILY 06/17/20 09/29/22 5 billion cell-250mg capsule (up4 Probiotics Women's) digestive enzymes 1 cap PO DAILY 09/29/22 09/29/22 Previous Rx's Medication Instructions Recorded pyridoxine (vitamin B6) 100 mg 100 mg PO DAILY 90 days #90 tabs 10/14/21 tablet cholecalciferol (vitamin D3) 50 50 mcg PO DAILY #90 caps 07/21/22 mcg (2,000 unit) capsule <Penelope Sousa NP - Last Filed: 09/29/22 16:37> Allergies/Adverse Reactions: Allergies Allergy/AdvReac Type Severity Reaction Status Date / Time calcium [Calcium] Allergy Severe HIVES Verified 09/29/22 09:02 doxycycline [Doxycycline] Allergy Severe FACIAL Verified 09/29/22 09:02 SWELLING,almost killed pt,inhouse for weakness,,incontinence?seizures Penicillins Allergy Severe Facial Verified 09/29/22 09:02 Swelling lactose Allergy Mild Unknown Verified 09/29/22 09:02 amoxicillin Allergy Unknown Throat Verified 09/29/22 09:02 swelling azithromycin [AZITHROMYCIN] Allergy Unknown Bloody Verified 09/29/22 09:02 Diarrhea cefuroxime [CEFUROXIME] Allergy Unknown Angioedema Verified 09/29/22 09:02 ciprofloxacin [From Cipro] Allergy Unknown Unknown Verified 09/29/22 09:02 clindamycin [CLINDAMYCIN] Allergy Unknown Anaphylaxis Verified 09/29/22 09:02 erythromycin base Allergy Unknown Diarrhea Verified 09/29/22 09:02 iron Allergy Unknown Unknown Verified 09/29/22 09:02 levofloxacin [From Levaquin] Allergy Unknown Unknown Verified 09/29/22 09:02 peanut [Peanut] Allergy Unknown Itching Verified 09/29/22 09:02 penicillin V Allergy Unknown ears and Verified 09/29/22 09:02 face swell,throat swell Sulfa (Sulfonamide Allergy Unknown ANAPHYLAXIS, Verified 09/29/22 09:02 Antibiotics) swelling [SULFA(SULFONAMIDE body,welts ANTIBIOTICS)] RAISIN Allergy Unknown Itching Uncoded 09/29/22 09:02 TURNIPS Allergy Unknown Unknown Uncoded 09/29/22 09:02 cheetos Allergy itchy, rash Uncoded 09/29/22 09:02 cranberry juice Allergy mouth Uncoded 09/29/22 09:02 itchy, bumps grape juice Allergy mouth Uncoded 09/29/22 09:02 itchy, bumps <Penelope Sousa NP - Last Filed: 09/29/22 16:37> Review of Systems Review of Systems: Yes all other systems are reviewed and are negative <Penelope Sousa NP - Last Filed: 09/29/22 16:37> Constitutional: Constitutional: Reports no additional constitutional complaints, Denies body ache(s), Denies chills, Denies fever(s), Denies head ache(s) and Denies weakness <Penelope Sousa NP - Last Filed: 09/29/22 16:37> Eyes: Eyes: Reports no additional eye complaints and Denies change in vision <Penelope Sousa HAND BINDER STRIPPER - Last Filed: 09/29/22 16:37> ENT: Reports system reviewed and no additional complaints, except as documented, Denies dizziness, Denies headache(s), Denies nasal congestion, Denies nasal discharge and Denies neck pain <Penelope Sousa HAND BINDER STRIPPER - Last Filed: 09/29/22 16:37> Cardiovascular: Cardiovascular: Reports no additional cardiovascular complaints, Reports chest pain, Denies leg edema and Denies dyspnea <Penelope Sousa HAND BINDER STRIPPER - Last Filed: 09/29/22 16:37> Respiratory: Respiratory: Reports no additional respiratory complaints, Denies cough and Denies dyspnea <Penelope Sousa HAND BINDER STRIPPER - Last Filed: 09/29/22 16:37> Gastrointestinal: Gastrointestinal: Reports no additional gastrointestinal complaints, Denies abdominal pain, Denies diarrhea, Denies nausea and Denies vomiting <Penelope Sousa HAND BINDER STRIPPER - Last Filed: 09/29/22 16:37> Genitourinary: Genitourinary: Reports no additional female genitourinary complaints and Denies urinary incontinence <Penelope Sousa HAND BINDER STRIPPER - Last Filed: 09/29/22 16:37> Musculoskeletal: Musculoskeletal: Reports no additional musculoskeletal complaints, Denies back pain, Denies arthralgias, Denies joint swelling, Denies neck pain, Denies numbness and Denies tingling <Penelope Sousa HAND BINDER STRIPPER - Last Filed: 09/29/22 16:37> Integumentary/Breasts: Skin/Breast: Reports system reviewed and no additional complaints, except as docu and Denies rash <Penelope Sousa HAND BINDER STRIPPER - Last Filed: 09/29/22 16:37> Neurologic: Reports system reviewed and no additional complaints, except as documented, Denies Abnormal speech present, Denies dizziness, Denies headache(s), Denies numbness, Denies tingling and Denies weakness <Penelope Sousa HAND BINDER STRIPPER - Last Filed: 09/29/22 16:37> PMFSH Past Medical History Attestation statement: The following information was validated with the patient. <Penelope Sousa NP - Last Filed: 09/29/22 16:37> Source: old records reviewed and nursing notes reviewed <Penelope Sousa NP - Last Filed: 09/29/22 16:37> Medical History: Medical History Appendicitis Bilateral knee pain Carpal tunnel syndrome Chronic headaches Cough Depression Diverticulosis Exocrine pancreatic insufficiency Fibromyalgia IBS (irritable bowel syndrome) Kidney stone Lichen sclerosus Pre-op examination Rectal prolapse Right shoulder injury Small intestinal bacterial overgrowth Vertigo <Penelope Sousa NP - Last Filed: 09/29/22 16:37> Surgical History: Surgical History History of endometrial ablation History of esophagogastroduodenoscopy (EGD) Hx of appendectomy Hx of carpal tunnel repair (~07/2019) Hx of cholecystectomy Hx of colonoscopy Hx of rotator cuff surgery Hx of shoulder surgery <Penelope Sousa NP - Last Filed: 09/29/22 16:37> Family History Family History: Family History Father Myocardial infarction, Onset Age: 46 Mother Congestive heart failure Stomach problems Stomach ulcer Anxiety and depression Myocardial infarction, Onset Age: 50 Mental health disorder Sister Heart problem Myocardial infarction, Onset Age: 59 Sister Afib Brother Throat cancer Lung cancer <[place] Rojo Last Filed: 09/29/22 16:37> Social History Social History: Social History Household Members: Family Housing: Apartment Alcohol intake: never Patient Tobacco Use Status: Current everyday Tobacco user Tobacco use type: Cigarette Cigarette Packs Per Day: 1 Cigarettes Per Day: 20 Years Smoked: 30 +/- Smoked in Last 30 Days: Yes e-Cigarette/Vaping Use: Never Used Second Hand Smoke Exposure: No Use of substances other than those prescribed or required for medical reasons: No Advance Directives: No Patient : No service: No Current occupational status: disabled 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 Cognitive needs: No Hearing needs: No Vision needs: Yes (Glasses) <Penelope Sousa NP - Last Filed: 09/29/22 16:37> Physical Exam Vital Signs: Vital Signs: Last Vital Signs Temp 98.7 F 09/29/22 18:41 Pulse 73 09/29/22 18:41 Resp 16 09/29/22 18:41 BP 111/66 09/29/22 18:41 Pulse Ox 95 09/29/22 18:41 O2 Del Method Room Air 09/29/22 18:41 BMI result Body Mass Index 36.9 <Penelope Sousa HAND BINDER STRIPPER - Last Filed: 09/29/22 16:37> Vital Signs: Last Vital Signs Temp 98.7 F 09/29/22 18:41 Pulse 73 09/29/22 18:41 Resp 16 09/29/22 18:41 BP 111/66 09/29/22 18:41 Pulse Ox 95 09/29/22 18:41 O2 Del Method Room Air 09/29/22 18:41 BMI result Body Mass Index 36.9 <Suresh Conroy - Last Filed: 09/29/22 19:12> Const: General: cooperative, healthy appearing, comfortable and no acute distress <Penelope Sousa NP - Last Filed: 09/29/22 16:37> Orientation/consciousness: patient oriented x3 <Penelope Sousa NP - Last Filed: 09/29/22 16:37> Limitations: no limitations <Penelope Sousa NP - Last Filed: 09/29/22 16:37> HEENT: Head: Yes normal to inspection <Penelope Sousa NP - Last Filed: 09/29/22 16:37> Ears: hearing grossly normal bilaterally <Penelope Sousa NP - Last Filed: 09/29/22 16:37> General nose exam: Normal external nose present <Penelope Sousa NP - Last Filed: 09/29/22 16:37> Face and sinus: Yes normal facial exam <Penelope Sousa NP - Last Filed: 09/29/22 16:37> Mouth: Normal oral and palatal mucosa present <Penelope Sousa NP - Last Filed: 09/29/22 16:37> Throat: Yes posterior oropharynx normal <Penelope Sousa HAND BINDER STRIPPER - Last Filed: 09/29/22 16:37> Eyes: General: appearance normal, both eyes and all related structures <Penelope Sousa HAND BINDER STRIPPER - Last Filed: 09/29/22 16:37> Pupils: Equal, round and reactive pupils present <Penelope Sousa HAND BINDER STRIPPER - Last Filed: 09/29/22 16:37> Neck: Neck: Yes normal visual inspection <Penelope Sousa HAND BINDER STRIPPER - Last Filed: 09/29/22 16:37> Chest: Chest palpation & inspection: normal inspection of the chest <Penelope Sousa HAND BINDER STRIPPER - Last Filed: 09/29/22 16:37> Resp: Effort & Inspection: normal respiratory effort <Penelope Sousa HAND BINDER STRIPPER - Last Filed: 09/29/22 16:37> Auscultation: clear to auscultation bilaterally <Penelope Sousa HAND BINDER STRIPPER - Last Filed: 09/29/22 16:37> Cardio: Rate: regular rate <Penelope Sousa HAND BINDER STRIPPER - Last Filed: 09/29/22 16: 37> Rhythm: regular rhythm <Penelope Sousa HAND BINDER STRIPPER - Last Filed: 09/29/22 16:37> Peripheral pulses: Peripheral pulses 2+ throughout <Penelope Sousa HAND BINDER STRIPPER - Last Filed: 09/29/22 16:37> GI: Inspection: Yes normal to inspection <Penelope Sousa HAND BINDER STRIPPER - Last Filed: 09/29/22 16:37> Palpation (GI): Soft to palpation and nontender <Penelope Sousa HAND BINDER STRIPPER - Last Filed: 09/29/22 16:37> Auscultation: normal bowel sounds <Penelope Sousa HAND BINDER STRIPPER - Last Filed: 09/29/22 16:37> Back/Spine/Pelvis: Thoracic/Lumbar Spine: thoracic and lumbar spine normal to inspection <Penelope Sousa HAND BINDER STRIPPER - Last Filed: 09/29/22 16:37> Skin: General skin exam: no rashes or lesions noted <Penelope Sousa HAND BINDER STRIPPER - Last Filed: 09/29/22 16:37> Neuro: General: patient oriented x3, no focal motor deficits and normal sensation to monofilament <Penelope Sousa HAND BINDER STRIPPER - Last Filed: 09/29/22 16:37> Cranial nerves: Yes Equal, round and reactive pupils present <Penelope Sousa HAND BINDER STRIPPER - Last Filed: 09/29/22 16:37> Cognition (Neuro): normal cognition <Penelopeignacia Sousa, HAND BINDER STRIPPER - Last Filed: 09/29/22 16:37> Speech: No Abnormal speech present <Penelopeandres Sousa, HAND BINDER STRIPPER - Last Filed: 09/29/22 16:37> Gait exam (Neuro): Normal gait present <Penelopeignacia Sousa HAND BINDER STRIPPER - Last Filed: 09/29/22 16:37> Motor exam (neuro): 5/5 motor strength present throughout <Penelopeandres Sousa, HAND BINDER STRIPPER - Last Filed: 09/29/22 16:37> Extrem: General: Yes normal to inspection, Yes no pedal edema and Yes no calf tenderness <Penelope Sousa HAND BINDER STRIPPER - Last Filed: 09/29/22 16:37> Course Course Course Narrative: 1430- patient comes back to the main ER from the waiting room. She has had 2 troponins with delta change. repeat EKG is not worsened. still having some chest heaviness. patient has some EKG changes in inferior leads so we will hold nitroglycerin and give aspirin and morphine. <Penelope Sousa HAND BINDER STRIPPER - Last Filed: 09/29/22 16:37> 1430- patient comes back to the main ER from the waiting room. She has had 2 troponins with delta change. repeat EKG is not worsened. still having some chest heaviness. patient has some EKG changes in inferior leads so we will hold nitroglycerin and give aspirin and morphine. 1902- patient was due to be transferred to [facility], however the I have not heard back from [facility] transfer line. I had reached out to Dr. Esquivel, as I was under the impression he was organizing the transfer. He states the patient was due to be transferred today but is unsure what time frame. I will reach out to the base a transfer line to help facilitate transfer, as the patient requires cardiac catheterization 1912- while attending to discussed with [facility] transfer line, the patient was actually given a bed assignment. Nursing will call nurse to nurse report and transfer will be organized <Suresh Conroy - Last Filed: 09/29/22 19:12> Reevaluation(s) Reevaluation #1: 1530-Patient had some worsening pain while receiving IV morphine which improved when the nurse stopped administering the morphine. A repeat EKG was obtained which showed NSR with rate 75, normal pr, normal qrs, normal qt with no changes in the ST segment <Penelope Sousa NP - Last Filed: 09/29/22 16:37> Reevaluation #2: 1550- Patient was seen at the bedside by Cardiology Dr. Esquivel. Patient now quite hypertensive with blood pressure systolic 170. Recommend half an inch of nitropaste, 5 mg of IV Lopressor, 25 mg of oral metoprolol. he is going to speak to [facility] to see if transfer is indicated. <Penelope Sousa NP - Last Filed: 09/29/22 16:37> Reevaluation #3: 1630-Patient is pending disposition. Sign out to Pedro [facility] COSBY pending disposition. <Penelope Sousa NP - Last Filed: 09/29/22 16:37> Additional Reevaluation(s): per Cardiology patient will go to [facility] today for further management. <Penelope Sousa NP - Last Filed: 09/29/22 16:37> Medications Administered Generic Name Dose Route Start Last Admin Trade Name Freq PRN Reason Stop Dose Admin Heparin Sodium/Sodium Chloride 25,000 unit in 250 mls @ 0 mls/hr 09/29/22 15:15 09/29/22 16:22 Heparin Sodium,Porcine/1/2ns IVCONT 11.66 units/kg/hr .Q0M EDILMA 10 mls/hr Administration Protocol Per Protocol Discontinued Medications Generic Name Dose Route Start Last Admin Trade Name Freq PRN Reason Stop Dose Admin Aspirin 324 mg 09/29/22 14:25 09/29/22 14:43 Aspirin 81 Mg Tab.Chew PO 09/29/22 14:26 324 mg ONCE ONE Administration Heparin Sodium (Porcine) 4,000 unit 09/29/22 14:32 09/29/22 14:43 Heparin Sodium,Porcine 5,000 Unit/Ml Vial IVPUSH 09/29/22 14:33 4,000 unit ONCE ONE Administration Metoprolol Succinate 25 mg 09/29/22 15:50 09/29/22 16:15 Metoprolol Succinate Er 25 Mg Tab.Er.24h PO 09/29/22 15:51 25 mg ONCE ONE Administration Protocol Metoprolol Tartrate 5 mg 09/29/22 15:50 09/29/22 16:14 Metoprolol Tartrate 5 Mg/5 Ml Vial IVPUSH 09/29/22 15:51 Not Given ONCE ONE Morphine Sulfate 4 mg 09/29/22 14:37 09/29/22 15:08 Morphine Sulfate 4 Mg/Ml Cartridge IVPUSH 09/29/22 14:38 4 mg ONCE ONE Administration Protocol Morphine Sulfate 4 mg 09/29/22 15:25 09/29/22 16:14 Morphine Sulfate 4 Mg/Ml Cartridge IVPUSH 09/29/22 15:26 4 mg ONCE ONE Administration Protocol Nitroglycerin 0.5 inch 09/29/22 15:50 09/29/22 16:15 Nitroglycerin 2 % Oint 1 Gm Packet TRANSDERMA 09/29/22 15:51 0.5 inch ONCE ONE Administration Ondansetron HCl 4 mg 09/29/22 14:37 09/29/22 15:08 Ondansetron Hcl 4 Mg/2 Ml Vial IVPUSH 09/29/22 14:38 4 mg ONCE ONE Administration <Penelope Sousa HAND BINDER STRIPPER - Last Filed: 09/29/22 16:37> Medications Administered Generic Name Dose Route Start Last Admin Trade Name Freq PRN Reason Stop Dose Admin Heparin Sodium/Sodium Chloride 25,000 unit in 250 mls @ 0 mls/hr 09/29/22 15:15 09/29/22 16:22 Heparin Sodium,Porcine/1/2ns IVCONT 11.66 units/kg/hr .Q0M EDILMA 10 mls/hr Administration Protocol Per Protocol Discontinued Medications Generic Name Dose Route Start Last Admin Trade Name Freq PRN Reason Stop Dose Admin Aspirin 324 mg 09/29/22 14:25 09/29/22 14:43 Aspirin 81 Mg Tab.Chew PO 09/29/22 14:26 324 mg ONCE ONE Administration Heparin Sodium (Porcine) 4,000 unit 09/29/22 14:32 09/29/22 14:43 Heparin Sodium,Porcine 5,000 Unit/Ml Vial IVPUSH 09/29/22 14:33 4,000 unit ONCE ONE Administration Metoprolol Succinate 25 mg 09/29/22 15:50 09/29/22 16:15 Metoprolol Succinate Er 25 Mg Tab.Er.24h PO 09/29/22 15:51 25 mg ONCE ONE Administration Protocol Metoprolol Tartrate 5 mg 09/29/22 15:50 09/29/22 16:14 Metoprolol Tartrate 5 Mg/5 Ml Vial IVPUSH 09/29/22 15:51 Not Given ONCE ONE Morphine Sulfate 4 mg 09/29/22 14:37 09/29/22 15:08 Morphine Sulfate 4 Mg/Ml Cartridge IVPUSH 09/29/22 14:38 4 mg ONCE ONE Administration Protocol Morphine Sulfate 4 mg 09/29/22 15:25 09/29/22 16:14 Morphine Sulfate 4 Mg/Ml Cartridge IVPUSH 09/29/22 15:26 4 mg ONCE ONE Administration Protocol Nitroglycerin 0.5 inch 09/29/22 15:50 09/29/22 16:15 Nitroglycerin 2 % Oint 1 Gm Packet TRANSDERMA 09/29/22 15:51 0.5 inch ONCE ONE Administration Ondansetron HCl 4 mg 09/29/22 14:37 09/29/22 15:08 Ondansetron Hcl 4 Mg/2 Ml Vial IVPUSH 09/29/22 14:38 4 mg ONCE ONE Administration <Suresh Conroy - Last Filed: 09/29/22 19:12> Medical Decision Making Medical Decision Making MDM Narrative: 57-year-old female with history of tobacco smoking who presents to the ER with intermittent jaw pain for the last 2 days with severe chest pain which began at 10:20 this morning with radiation to both her shoulders which is now much lessened and described as heaviness in her central chest with no other asso ciated symptoms. Patient will need labs, including serial troponins, EKG, chest x-ray COVID screen <Penelope Sousa NP - Last Filed: 09/29/22 16:37> Differential Diagnosis Differential Diagnoses: The differential diagnosis associated with the presentation includes <Penelope Sousa NP - Last Filed: 09/29/22 16:37> ACS, PE, aortic dissection <Penelope Sousa NP - Last Filed: 09/29/22 16:37> Admission/Observation Consideration of admission/observation: Escalation of care including admission/observation considered <Penelope Sousa NP - Last Filed: 09/29/22 16:37> patient with rising troponin in the setting of chest pain. Will need ACS workup so will admit <Penelope Sousa NP - Last Filed: 09/29/22 16:37> Consult Healthcare Provider Management of the patient was discussed with: Chopping Machine Operator <Penelope Sousa NP - Last Filed: 09/29/22 16:37> 1430- I spoke to the linter drier operator Dr. Esquivel. recommended admission to [facility] with IV heparin, statin, aspirin, and continuing to trend troponin <Penelope Sousa NP - Last Filed: 09/29/22 16:37> Lab Data Result Diagrams: 09/29/22 11:11 09/29/22 11:11 <Penelpoe Sousa NP - Last Filed: 09/29/22 16:37> Labs: Lab Results 09/29/22 09/29/22 09/29/22 Range/Units 11:11 11:11 11:11 WBC 12.9 H (4.8-10.8) X10*3/uL RBC 5.51 H (4.20-5.50) X10*6/uL Hgb 15.4 (12.0-16.0) g/dl Hct 48.2 H (37.0-47.0) % MCV 87.5 (80.0-98.0) fL MCH 27.9 (27.0-33.0) pg MCHC 32.0 (31.0-35.0) g/dl RDW 14.6 (11.0-16.0) % Plt Count 360 (160-400) X10*3/uL MPV 9.6 (9.4-12.3) fL Absolute Nucleated RBC 0.000 (0.0-0.012) X10*3/uL Nucleated RBC % (auto) 0.0 (0.0-0.2) /100WBC PT (10.0-13.1) SEC INR (0.9-1.1) aPTT Heparin Protocol (53-77.9) SEC D-Dimer High Sensitivty < 150 NG/ML Sodium 140 (135-145) mmol/L Potassium 5.0 (3.3-5.1) mmol/L Chloride 106 (96-108) mmol/L Carbon Dioxide 26 (22-29) mmol/L Anion Gap 13 (12-20) BUN 20 H (9-16) mg/dL Creatinine 0.87 (0.5-1.4) mg/dL Estim Creat Clear Calc 66.5 Estimated GFR > 60 Random Glucose 93 (60-115) mg/dL Calcium 9.9 (8.4-10.2) mg/dL Total Bilirubin 0.3 (0.0-1.0) mg/dL AST 18 (5-31) U/L ALT 22 (0-31) U/L Alkaline Phosphatase 121 H (39-117) U/L Troponin I High Sens (<3.5-17.0) ng/L Total Protein 7.5 (6.5-8.0) g/dL Albumin 4.4 (3.5-5.0) g/dL COVID-19 (DANA) (Negative) COVID-19 Clin Com 09/29/22 09/29/22 09/29/22 Range/Units 11:11 13:25 14:41 WBC 15.1 H (4.8-10.8) X10*3/uL RBC 4.83 (4.20-5.50) X10*6/uL Hgb 13.5 (12.0-16.0) g/dl Hct 41.9 (37.0-47.0) % MCV 86.7 (80.0-98.0) fL MCH 28.0 (27.0-33.0) pg MCHC 32.2 (31.0-35.0) g/dl RDW 14.6 (11.0-16.0) % Plt Count 335 (160-400) X10*3/uL MPV 9.6 (9.4-12.3) fL Absolute Nucleated RBC 0.000 (0.0-0.012) X10*3/uL Nucleated RBC % (auto) 0.0 (0.0-0.2) /100WBC PT (10.0-13.1) SEC INR (0.9-1.1) aPTT Heparin Protocol (53-77.9) SEC D-Dimer High Sensitivty NG/ML Sodium (135-145) mmol/L Potassium (3.3-5.1) mmol/L Chloride (96-108) mmol/L Carbon Dioxide (22-29) mmol/L Anion Gap (12-20) BUN (9-16) mg/dL Creatinine (0.5-1.4) mg/dL Estim Creat Clear Calc Estimated GFR Random Glucose (60-115) mg/dL Calcium (8.4-10.2) mg/dL Total Bilirubin (0.0-1.0) mg/dL AST (5-31) U/L ALT (0-31) U/L Alkaline Phosphatase (39-117) U/L Troponin I High Sens 16.0 196.9 H* D (<3.5-17.0) ng/L Total Protein (6.5-8.0) g/dL Albumin (3.5-5.0) g/dL COVID-19 (DANA) (Negative) COVID-19 Clin Com 09/29/22 09/29/22 09/29/22 Range/Units 14:41 14:41 15:56 WBC 14.3 H (4.8-10.8) X10*3/uL RBC 5.10 (4.20-5.50) X10*6/uL Hgb 14.2 (12.0-16.0) g/dl Hct 43.7 (37.0-47.0) % MCV 85.7 (80.0-98.0) fL MCH 27.8 (27.0-33.0) pg MCHC 32.5 (31.0-35.0) g/dl RDW 14.6 (11.0-16.0) % Plt Count 326 (160-400) X10*3/uL MPV 9.5 (9.4-12.3) fL Absolute Nucleated RBC 0.000 (0.0-0.012) X10*3/uL Nucleated RBC % (auto) 0.0 (0.0-0.2) /100WBC PT 10.9 (10.0-13.1) SEC INR 1.0 (0.9-1.1) aPTT Heparin Protocol 33.7 L (53-77.9) SEC D-Dimer High Sensitivty NG/ML Sodium (135-145) mmol/L Potassium (3.3-5.1) mmol/L Chloride (96-108) mmol/L Carbon Dioxide (22-29) mmol/L Anion Gap (12-20) BUN (9-16) mg/dL Creatinine (0.5-1.4) mg/dL Estim Creat Clear Calc Estimated GFR Random Glucose (60-115) mg/dL Calcium (8.4-10.2) mg/dL Total Bilirubin (0.0-1.0) mg/dL AST (5-31) U/L ALT (0-31) U/L Alkaline Phosphatase (39-117) U/L Troponin I High Sens (<3.5-17.0) ng/L Total Protein (6.5-8.0) g/dL Albumin (3.5-5.0) g/dL COVID-19 (DANA) Negative (Negative) COVID-19 Clin Com See Note 09/29/22 09/29/22 Range/Units 15:56 16:08 WBC (4.8-10.8) X10*3/uL RBC (4.20-5.50) X10*6/uL Hgb (12.0-16.0) g/dl Hct (37.0-47.0) % MCV (80.0-98.0) fL MCH (27.0-33.0) pg MCHC (31.0-35.0) g/dl RDW (11.0-16.0) % Plt Count (160-400) X10*3/uL MPV (9.4-12.3) fL Absolute Nucleated RBC (0.0-0.012) X10*3/uL Nucleated RBC % (auto) (0.0-0.2) /100WBC PT 11.1 (10.0-13.1) SEC INR 1.0 (0.9-1.1) aPTT Heparin Protocol 143.1 H* D (53-77.9) SEC D-Dimer High Sensitivty NG/ML Sodium (135-145) mmol/L Potassium (3.3-5.1) mmol/L Chloride (96-108) mmol/L Carbon Dioxide (22-29) mmol/L Anion Gap (12-20) BUN (9-16) mg/dL Creatinine (0.5-1.4) mg/dL Estim Creat Clear Calc Estimated GFR Random Glucose (60-115) mg/dL Calcium (8.4-10.2) mg/dL Total Bilirubin (0.0-1.0) mg/dL AST (5-31) U/L ALT (0-31) U/L Alkaline Phosphatase (39-117) U/L Troponin I High Sens 328.9 H* D (<3.5-17.0) ng/L Total Protein (6.5-8.0) g/dL Albumin (3.5-5.0) g/dL COVID-19 (DANA) (Negative) COVID-19 Clin Com <Penelope Sousa, HAND BINDER STRIPPER - Last Filed: 09/29/22 16:37> Lab Results 09/29/22 09/29/22 09/29/22 Range/Units 11:11 11:11 11:11 WBC 12.9 H (4.8-10.8) X10*3/uL RBC 5.51 H (4.20-5.50) X10*6/uL Hgb 15.4 (12.0-16.0) g/dl Hct 48.2 H (37.0-47.0) % MCV 87.5 (80.0-98.0) fL MCH 27.9 (27.0-33.0) pg MCHC 32.0 (31.0-35.0) g/dl RDW 14.6 (11.0-16.0) % Plt Count 360 (160-400) X10*3/uL MPV 9.6 (9.4-12.3) fL Absolute Nucleated RBC 0.000 (0.0-0.012) X10*3/uL Nucleated RBC % (auto) 0.0 (0.0-0.2) /100WBC PT (10.0-13.1) SEC INR (0.9-1.1) aPTT Heparin Protocol (53-77.9) SEC D-Dimer High Sensitivty < 150 NG/ML Sodium 140 (135-145) mmol/L Potassium 5.0 (3.3-5.1) mmol/L Chloride 106 (96-108) mmol/L Carbon Dioxide 26 (22-29) mmol/L Anion Gap 13 (12-20) BUN 20 H (9-16) mg/dL Creatinine 0.87 (0.5-1.4) mg/dL Estim Creat Clear Calc 66.5 Estimated GFR > 60 Random Glucose 93 (60-115) mg/dL Calcium 9.9 (8.4-10.2) mg/dL Total Bilirubin 0.3 (0.0-1.0) mg/dL AST 18 (5-31) U/L ALT 22 (0-31) U/L Alkaline Phosphatase 121 H (39-117) U/L Troponin I High Sens (<3.5-17.0) ng/L Total Protein 7.5 (6.5-8.0) g/dL Albumin 4.4 (3.5-5.0) g/dL COVID-19 (DANA) (Negative) COVID-19 Clin Com 09/29/22 09/29/22 09/29/22 Range/Units 11:11 13:25 14:41 WBC 15.1 H (4.8-10.8) X10*3/uL RBC 4.83 (4.20-5.50) X10*6/uL Hgb 13.5 (12.0-16.0) g/dl Hct 41.9 (37.0-47.0) % MCV 86.7 (80.0-98.0) fL MCH 28.0 (27.0-33.0) pg MCHC 32.2 (31.0-35.0) g/dl RDW 14.6 (11.0-16.0) % Plt Count 335 (160-400) X10*3/uL MPV 9.6 (9.4-12.3) fL Absolute Nucleated RBC 0.000 (0.0-0.012) X10*3/uL Nucleated RBC % (auto) 0.0 (0.0-0.2) /100WBC PT (10.0-13.1) SEC INR (0.9-1.1) aPTT Heparin Protocol (53-77.9) SEC D-Dimer High Sensitivty NG/ML Sodium (135-145) mmol/L Potassium (3.3-5.1) mmol/L Chloride (96-108) mmol/L Carbon Dioxide (22-29) mmol/L Anion Gap (12-20) BUN (9-16) mg/dL Creatinine (0.5-1.4) mg/dL Estim Creat Clear Calc Estimated GFR Random Glucose (60-115) mg/dL Calcium (8.4-10.2) mg/dL Total Bilirubin (0.0-1.0) mg/dL AST (5-31) U/L ALT (0-31) U/L Alkaline Phosphatase (39-117) U/L Troponin I High Sens 16.0 196.9 H* D (<3.5-17.0) ng/L Total Protein (6.5-8.0) g/dL Albumin (3.5-5.0) g/dL COVID-19 (DANA) (Negative) COVID-19 Clin Com 09/29/22 09/29/22 09/29/22 Range/Units 14:41 14:41 15:56 WBC 14.3 H (4.8-10.8) X10*3/uL RBC 5.10 (4.20-5.50) X10*6/uL Hgb 14.2 (12.0-16.0) g/dl Hct 43.7 (37.0-47.0) % MCV 85.7 (80.0-98.0) fL MCH 27.8 (27.0-33.0) pg MCHC 32.5 (31.0-35.0) g/dl RDW 14.6 (11.0-16.0) % Plt Count 326 (160-400) X10*3/uL MPV 9.5 (9.4-12.3) fL Absolute Nucleated RBC 0.000 (0.0-0.012) X10*3/uL Nucleated RBC % (auto) 0.0 (0.0-0.2) /100WBC PT 10.9 (10.0-13.1) SEC INR 1.0 (0.9-1.1) aPTT Heparin Protocol 33.7 L (53-77.9) SEC D-Dimer High Sensitivty NG/ML Sodium (135-145) mmol/L Potassium (3.3-5.1) mmol/L Chloride (96-108) mmol/L Carbon Dioxide (22-29) mmol/L Anion Gap (12-20) BUN (9-16) mg/dL Creatinine (0.5-1.4) mg/dL Estim Creat Clear Calc Estimated GFR Random Glucose (60-115) mg/dL Calcium (8.4-10.2) mg/dL Total Bilirubin (0.0-1.0) mg/dL AST (5-31) U/L ALT (0-31) U/L Alkaline Phosphatase (39-117) U/L Troponin I High Sens (<3.5-17.0) ng/L Total Protein (6.5-8.0) g/dL Albumin (3.5-5.0) g/dL COVID-19 (DANA) Negative (Negative) COVID-19 Clin Com See Note 09/29/22 09/29/22 Range/Units 15:56 16:08 WBC (4.8-10.8) X10*3/uL RBC (4.20-5.50) X10*6/uL Hgb (12.0-16.0) g/dl Hct (37.0-47.0) % MCV (80.0-98.0) fL MCH (27.0-33.0) pg MCHC (31.0-35.0) g/dl RDW (11.0-16.0) % Plt Count (160-400) X10*3/uL MPV (9.4-12.3) fL Absolute Nucleated RBC (0.0-0.012) X10*3/uL Nucleated RBC % (auto) (0.0-0.2) /100WBC PT 11.1 (10.0-13.1) SEC INR 1.0 (0.9-1.1) aPTT Heparin Protocol 143.1 H* D (53-77.9) SEC D-Dimer High Sensitivty NG/ML Sodium (135-145) mmol/L Potassium (3.3-5.1) mmol/L Chloride (96-108) mmol/L Carbon Dioxide (22-29) mmol/L Anion Gap (12-20) BUN (9-16) mg/dL Creatinine (0.5-1.4) mg/dL Estim Creat Clear Calc Estimated GFR Random Glucose (60-115) mg/dL Calcium (8.4-10.2) mg/dL Total Bilirubin (0.0-1.0) mg/dL AST (5-31) U/L ALT (0-31) U/L Alkaline Phosphatase (39-117) U/L Troponin I High Sens 328.9 H* D (<3.5-17.0) ng/L Total Protein (6.5-8.0) g/dL Albumin (3.5-5.0) g/dL COVID-19 (DANA) (Negative) COVID-19 Clin Com <Suresh Conroy - Last Filed: 09/29/22 19:12> Independent Interpretation I performed an independent interpretation of an: EKG and Plain X-Ray <Penelope Sousa NP - Last Filed: 09/29/22 16:37> Interpretation: I independently reviewed the chest x-ray and agree with radiologist's report I reviewed the EKG at 14 30 - the initial EKG at 10:17 shows normal sinus rhythm with a rate of 78, normal NE, normal QRS, mildly elevated ST segment in lead 3 only - repeat EKG at 14:17 shows normal sinus rhythm with a rate of 76, normal NE, normal QRS, normal QT <Penelope Sousa NP - Last Filed: 09/29/22 16:37> Radiology Impression Discussion of test interpretation with radiology: I have reviewed the radiologist's reading. <Penelope Sousa NP - Last Filed: 09/29/22 16:37> Radiologist Impression: Launch?Image [facility] [place] [facility] [place] [id number] XRay Report Signed Patient: Yomaira Dunn MR#: [id number] : 1965 Acct:[id number] Age/Sex: 57 / F ADM Date: 06/29/22 Loc: HO.HMGCX Attending Dr: Leonor GALLEGOS Ordering Physician: Leonor Milner Date of Service: 06/29/22 Procedure(s): XR chest 2V Accession Number(s): [id number] cc: Leonor Milner WHEEL [employer]ER-BC~ EXAMINATION: XR CHEST CLINICAL INFORMATION: R05.9 - Cough, unspecified COMPARISON: Chest radiographs 05/27/2022, 04/19/2021, 08/17/2020 TECHNIQUE: 2 views of the chest were obtained. FINDINGS: The lungs are clear and there is no airspace consolidation or groundglass opacity. No pleural reaction or effusion. The costophrenic sulci are clear. Heart within normal size. Vascularity normal. The hilar and mediastinal contours and bony structures are stable. XR/XR chest 2V IMPRESSION: Unremarkable examination. <Penelope oSusa NP - Last Filed: 09/29/22 16:37> Critical Care Time Critical Care Time Critical Care Time: Yes <Penelope Sousa NP - Last Filed: 09/29/22 16:37> Total Critical Care Time: 60 <Penelope Sousa NP - Last Filed: 09/29/22 16:37> Attestation: Multiple evaluations for chest pain, serial EKGs, discussion with Cardiology <Penelope Sousa NP - Last Filed: 09/29/22 16:37> Discharge Plan Discharge Clinical Impression: Acute non-ST elevation myocardial infarction (NSTEMI) <Penelope Sousa NP - Last Filed: 09/29/22 16:37> Patient Disposition: [facility] <Penelope Sousa NP - Last Filed: 09/29/22 16:37> Transfer Details: [facility] <Penelope Sousa NP - Last Filed: 09/29/22 16:37> [facility] <Suresh Conroy - Last Filed: 09/29/22 19:12> Prescriptions: No Action cholecalciferol (vitamin D3) 50 mcg (2,000 unit) capsule 50 mcg PO DAILY Qty: 90 3RF digestive enzymes Capsule 1 cap PO DAILY Rx Instructions: administer with food; swallow whole; do not crush/chew/dissolve/break/cut up4 Probiotics Women's 5 billion cell- 250 mg capsule 1 cap PO DAILY pyridoxine (vitamin B6) 100 mg tablet 100 mg PO DAILY 90 Days Qty: 90 3RF <Penelope Sousa, HAND BINDER STRIPPER - Last Filed: 09/29/22 16:37>
--- NOTE | 2022-09-29 14:02 | ECG_ITS ---
Test Reason : REPEAT Blood Pressure : / mmHG Vent. Rate : 076 BPM Atrial Rate : 076 BPM P-R Int : 170 ms QRS Dur : 080 ms QT Int : 388 ms P-R-T Axes : 051 029 056 degrees QTc Int : 436 ms Normal sinus rhythm Nonspecific ST abnormality Cannot rule out Anterior infarct (cited on or before 29-SEP-2022) Abnormal ECG When compared with ECG of 29-SEP-2022 10:17, No significant change was found Referred By: Ke Liao Electronically Signed By:ASHLY VELASQUEZ MD
[2022-09-29 14:18] VITALS: BP 154/67; PULSE 71; RESP 16; TEMP 36.6; O2SAT 99
[2022-09-29 14:39] VITALS: BMI 40.5
[2022-09-29] MEDS: Heparin Sodium,Porcine 5,000 UNIT/ML VIAL 4000 UNIT IVPUSH (14:43)
[2022-09-29] MEDS: Aspirin 81 MG TAB.CHEW 324 MG PO (14:43)
[2022-09-29 14:49] LABS: Hematocrit 41.9 % (37.0-47.0); Hemoglobin 13.5 g/dl (12.0-16.0); Mean Corpuscular HGB Conc 32.2 g/dl (31.0-35.0); Mean Corpuscular Volume 86.7 fL (80.0-98.0); Mean Platelet Volume 9.6 fL (9.4-12.3); Platelet Count 335 X10*3/uL (160-400); Red Blood Count 4.83 X10*6/uL (4.20-5.50); Red Cell Distribution Width 14.6 % (11.0-16.0); White Blood Count 15.1 X10*3/uL (4.8-10.8)
[2022-09-29 14:53] VITALS: BMI 36.9
[2022-09-29 14:57] LABS: Prothrombin Time 10.9 SEC (10.0-13.1)
[2022-09-29 15:00] LABS: PTT Heparin Drip 33.7 SEC (53-77.9)
[2022-09-29 15:07] LABS: COVID-19 Test Negative (Negative); IDNOW Serial# 55D5AD1C
[2022-09-29] MEDS: ondansetron HCL 4 MG/2 ML VIAL IVPUSH (15:08)
[2022-09-29] MEDS: Morphine Sulfate 4 MG/ML CARTRIDGE IVPUSH ×2 (15:08→16:14)
--- NOTE | 2022-09-29 15:14 | PC.NURSE ---
Addendum entered by Liliana Gordillo RN 09/29/22 15:21: new EKG ordered Original Note: while administering morphine per JUL pt reported increase in chest pain like how it felt when I came in gene FACILITY COORDINATOR made aware
[2022-09-29 15:15] VITALS: BP 165/84; PULSE 78; RESP 15; O2SAT 96
--- NOTE | 2022-09-29 15:18 | ECG_ITS ---
Test Reason : CHEST PAIN Blood Pressure : / mmHG Vent. Rate : 075 BPM Atrial Rate : 075 BPM P-R Int : 162 ms QRS Dur : 082 ms QT Int : 386 ms P-R-T Axes : 054 031 050 degrees QTc Int : 431 ms Normal sinus rhythm Normal ECG When compared with ECG of 29-SEP-2022 14:17, No significant change was found Referred By: Penelope Sousa Electronically Signed By:ASHLY VELASQUEZ MD
--- NOTE | 2022-09-29 15:19 | PHA.MEDREC ---
Pharmacy Consult ? Medication Reconciliation Pharmacy has completed the medication reconciliation. Spoke to patient, she told me she is not on any medications other than vitamin B6, vitamin D3, [employer] digestive enzymes and a probiotic. Patient has many pharmacy claims which I explained to her and she stated that she is only on these 4.
[2022-09-29 16:02] LABS: Hematocrit 43.7 % (37.0-47.0); Hemoglobin 14.2 g/dl (12.0-16.0); Mean Corpuscular HGB Conc 32.5 g/dl (31.0-35.0); Mean Corpuscular Hemoglobin 27.8 pg (27.0-33.0); Mean Corpuscular Volume 85.7 fL (80.0-98.0); Mean Platelet Volume 9.5 fL (9.4-12.3); Platelet Count 326 X10*3/uL (160-400); Red Cell Distribution Width 14.6 % (11.0-16.0); White Blood Count 14.3 X10*3/uL (4.8-10.8)
[2022-09-29 16:08] LABS: Prothrombin Time 11.1 SEC (10.0-13.1)
[2022-09-29 16:11] VITALS: BP 124/65; PULSE 73; RESP 17; O2SAT 93
[2022-09-29] MEDS: Nitroglycerin 2 % Oint 1 GM Packet 0.5 INCH TRANSDERMA (16:15)
[2022-09-29] MEDS: Metoprolol Succinate ER 25 MG TAB.ER.24H PO (16:15)
[2022-09-29] MEDS: Heparin Sodium,Porcine/1/2NS 25,000 UNIT/250 ML IV.SOLN 10 UNIT IVCONT (16:22)
--- NOTE | 2022-09-29 16:22 | P.CONCA_ITS ---
History of Present Illness History of Present Illness Date of Service: 09/29/22 Requesting physician: Penelope Sousa Consult reason: other (Acute coronary syndrome) Chief complaint: chest pain Narrative: I was consulted to see Yomaira in cardiology consultation today for acute onset chest pain with elevated troponins. She is a 57-year-old woman with history of anxiety, smoking, family history of cardiac disease. Patient was usual state of health for 2 days been having some jaw discomfort we start was related to her exercising her job. However this morning after the GI visit she has developed sudden-onset retrosternal chest pressure with bilateral arm tingling/pressure sensation. She got concerned about it and therefore came to the emergency room. In the emergency room EKG was normal and 1st troponin was negative. Subsequent release she continues to have intermittent episode of chest discomfort in EKGs have been without any acute ischemic changes. However 2nd troponin is significantly elevated. She is very anxious about the findings. She says that her blood pressure is high because of that. She is not having any chest discomfort when I was interviewing her. She denies any associated nausea, vomiting, diaphoresis, shortness of breath. She is scheduled to undergo bilateral carotid ultrasound for carotid bruit. Review of Systems Constitutional: Constitutional: Reports no additional constitutional complaint s Eyes: Eyes: Reports no additional eye complaints Cardiovascular: Cardiovascular: Reports chest pain at rest, Denies leg edema, Denies lightheadedness, Denies Loss of Consciousness, Denies palpitations and Denies dyspnea Respiratory: Respiratory: Reports no additional respiratory complaints and Denies dyspnea Gastrointestinal: Gastrointestinal: Reports no additional gastrointestinal complaints Genitourinary: Genitourinary: Reports no additional female genitourinary complaints Musculoskeletal: Musculoskeletal: Reports no additional musculoskeletal complaints Integumentary/Breasts: Skin/Breast: Reports system reviewed and no additional complaints, except as docu Neurologic: Reports system reviewed and no additional complaints, except as documented Psychiatric: Psychiatric: Reports no additional psychiatric complaints Endocrine: Endocrine: Denies palpitations PMFSH Past Medical History Medical History Appendicitis Bilateral knee pain Carpal tunnel syndrome Chronic headaches Cough Depression Diverticulosis Exocrine pancreatic insufficiency Fibromyalgia IBS (irritable bowel syndrome) Kidney stone Lichen sclerosus Pre-op examination Rectal prolapse Right shoulder injury Small intestinal bacterial overgrowth Vertigo Family History Family History Father Myocardial infarction, Onset Age: 46 Mother Congestive heart failure Stomach problems Stomach ulcer Anxiety and depression Myocardial infarction, Onset Age: 50 Mental health disorder Sister Heart problem Myocardial infarction, Onset Age: 59 Sister Afib Brother Throat cancer Lung cancer Surgical History Surgical History History of endometrial ablation History of esophagogastroduodenoscopy (EGD) Hx of appendectomy Hx of carpal tunnel repair (~07/2019) Hx of cholecystectomy Hx of colonoscopy Hx of rotator cuff surgery Hx of shoulder surgery Social History Social History Household Members: Family Housing: Apartment Alcohol intake: never Patient Tobacco Use Status: Current everyday Tobacco user Tobacco use type: Cigarette Cigarette Packs Per Day: 1 Cigarettes Per Day: 20 Years Smoked: 30 +/- Smoked in Last 30 Days: Yes e-Cigarette/Vaping Use: Never Used Second Hand Smoke Exposure: No Use of substances other than those prescribed or required for medical reasons: No Advance Directives: No Patient : No service: No Current occupational status: disabled 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 Cognitive needs: No Hearing needs: No Vision needs: Yes (Glasses) Meds Allergies Allergy/AdvReac Type Severity Reaction Status Date / Time calcium [Calcium] Allergy Severe HIVES Verified 09/29/22 09:02 doxycycline [Doxycycline] Allergy Severe FACIAL Verified 09/29/22 09:02 SWELLING,almost killed pt,inhouse for weakness,,incontinence?seizures Penicillins Allergy Severe Facial Verified 09/29/22 09:02 Swelling lactose Allergy Mild Unknown Verified 09/29/22 09:02 amoxicillin Allergy Unknown Throat Verified 09/29/22 09:02 swelling azithromycin [AZITHROMYCIN] Allergy Unknown Bloody Verified 09/29/22 09:02 Diarrhea cefuroxime [CEFUROXIME] Allergy Unknown Angioedema Verified 09/29/22 09:02 ciprofloxacin [From Cipro] Allergy Unknown Unknown Verified 09/29/22 09:02 clindamycin [CLINDAMYCIN] Allergy Unknown Anaphylaxis Verified 09/29/22 09:02 erythromycin base Allergy Unknown Diarrhea Verified 09/29/22 09:02 iron Allergy Unknown Unknown Verified 09/29/22 09:02 levofloxacin [From Levaquin] Allergy Unknown Unknown Verified 09/29/22 09:02 peanut [Peanut] Allergy Unknown Itching Verified 09/29/22 09:02 penicillin V Allergy Unknown ears and Verified 09/29/22 09:02 face swell,throat swell Sulfa (Sulfonamide Allergy Unknown ANAPHYLAXIS, Verified 09/29/22 09:02 Antibiotics) swelling [SULFA(SULFONAMIDE body,welts ANTIBIOTICS)] RAISIN Allergy Unknown Itching Uncoded 09/29/22 09:02 TURNIPS Allergy Unknown Unknown Uncoded 09/29/22 09:02 cheetos Allergy itchy, rash Uncoded 09/29/22 09:02 cranberry juice Allergy mouth Uncoded 09/29/22 09:02 itchy, bumps grape juice Allergy mouth Uncoded 09/29/22 09:02 itchy, bumps Active Medications: Current Medications Heparin Sodium (Porcine) (Heparin Sodium,Porcine 5,000 Unit/Ml Vial) 3,400 unit 40 unit/kg (3400 unit) IVPUSH PROTOCOL BOLUS PRN; Protocol PRN Reason: 40 unit/kg - Heparin Protocol Heparin Sodium (Porcine) (Heparin Sodium,Porcine 5,000 Unit/Ml Vial) 6,900 unit 80 unit/kg (6900 unit) IVPUSH PROTOCOL BOLUS PRN; Protocol PRN Reason: 80 unit/kg - Heparin Protocol Heparin Sodium/Sodium Chloride (Heparin Sodium,Porcine/1/2ns) 25,000 unit in 250 mls @ 0 mls/hr IVCONT .Q0M EDILMA; Protocol Pharmacy Consult (Consult Rx Perform Med Rec) 1 each MISCELLANE ONCE PRN PRN Reason: Consult order Home Medications Medication Instructions Recorded Confirmed Last Taken Type L.acid,gasseri,plant,rham-B.animalis-cran 1 cap PO DAILY 06/17/20 09/29/22 Unknown History 5 billion cell-250mg capsule (up4 Probiotics Women's) digestive enzymes 1 cap PO DAILY 09/29/22 09/29/22 Unknown History Physical Exam Vital Signs: Vital Signs: Last Vital Signs Temp 97.8 F 09/29/22 14:18 Pulse 73 09/29/22 16:11 Resp 17 09/29/22 16:11 BP 124/65 09/29/22 16:11 Pulse Ox 93 09/29/22 16:11 O2 Del Method Room Air 09/29/22 16:11 BMI result Body Mass Index 36.9 Const: General: cooperative, comfortable, no acute distress, alert, awake and anxious Nutritional Appearance: obese Orientation/consciousness: patient oriented x3 Limitations: no limitations HEENT: Head: Yes normocephalic and Yes atraumatic Neck: Neck: Yes trachea midline, Yes supple and Yes no JVD Resp: Effort & Inspection: normal respiratory effort Auscultation: clear to auscultation bilaterally Cardio: Jugular venous distension: no JVD Palpation: normal PMI Rate: regular rate Rhythm: regular rhythm Heart sounds: S1 normal heart sound present, S2 normal heart sound present, no click, no gallops, no murmurs and no rubs Bruits: carotid bruit bilaterally Peripheral pulses: Peripheral pulses 2+ throughout GI: Auscultation: normal bowel sounds Skin: General skin exam: no rashes or lesions noted Neuro: General: patient oriented x3 and no focal motor deficits Extrem: General: Yes no clubbing, cyanosis or edema Psych: Appearance: grossly normal Affect: Anxious affect present Objective Labs and Meds 09/29/22 15:56 09/29/22 11:11 Lab results: Laboratory Results - last 24 hr 09/29/22 09/29/22 09/29/22 11:11 11:11 11:11 WBC 12.9 H RBC 5.51 H Hgb 15.4 Hct 48.2 H MCV 87.5 MCH 27.9 MCHC 32.0 RDW 14.6 Plt Count 360 MPV 9.6 Absolute Nucleated RBC 0.000 Nucleated RBC % (auto) 0.0 PT INR aPTT Heparin Protocol D-Dimer High Sensitivty < 150 Sodium 140 Potassium 5.0 Chloride 106 Carbon Dioxide 26 Anion Gap 13 BUN 20 H Creatinine 0.87 Estim Creat Clear Calc 66.5 Estimated GFR > 60 Random Glucose 93 Calcium 9.9 Total Bilirubin 0.3 AST 18 ALT 22 Alkaline Phosphatase 121 H Troponin I High Sens Total Protein 7.5 Albumin 4.4 COVID-19 (DANA) COVID-19 Clin Com 09/29/22 09/29/22 09/29/22 11:11 13:25 14:41 WBC 15.1 H RBC 4.83 Hgb 13.5 Hct 41.9 MCV 86.7 MCH 28.0 MCHC 32.2 RDW 14.6 Plt Count 335 MPV 9.6 Absolute Nucleated RBC 0.000 Nucleated RBC % (auto) 0.0 PT INR aPTT Heparin Protocol D-Dimer High Sensitivty Sodium Potassium Chloride Carbon Dioxide Anion Gap BUN Creatinine Estim Creat Clear Calc Estimated GFR Random Glucose Calcium Total Bilirubin AST ALT Alkaline Phosphatase Troponin I High Sens 16.0 196.9 H* D Total Protein Albumin COVID-19 (DANA) COVID-19 Clin Com 09/29/22 09/29/22 09/29/22 14:41 14:41 15:56 WBC 14.3 H RBC 5.10 Hgb 14.2 Hct 43.7 MCV 85.7 MCH 27.8 MCHC 32.5 RDW 14.6 Plt Count 326 MPV 9.5 Absolute Nucleated RBC 0.000 Nucleated RBC % (auto) 0.0 PT 10.9 INR 1.0 aPTT Heparin Protocol 33.7 L D-Dimer High Sensitivty Sodium Potassium Chloride Carbon Dioxide Anion Gap BUN Creatinine Estim Creat Clear Calc Estimated GFR Random Glucose Calcium Total Bilirubin AST ALT Alkaline Phosphatase Troponin I High Sens Total Protein Albumin COVID-19 (DANA) Negative COVID-19 Clin Com See Note EKG shows normal sinus rhythm with normal EKG Assessment and Plan (1) Acute coronary syndrome: Status: Acute Patient present with symptoms typical for myocardial ischemia associated with elevated troponins but EKG. However she is having ongoing symptoms intermitten tly. Will treat her as acute coronary syndrome. Will start on IV heparin. She already has received aspirin will continue low-dose aspirin therapy. High- intensity statin therapy with atorvastatin 80 mg daily. Start on nitro paste half an inch q.6 hours. Also metoprolol 25 mg q.6 hours for better control for blood pressure. We discussed about need for cardiac catheterization including benefits, alternatives 2nd open to procedure. Need to transfer to [facility] was discussed. She is agreeable. Possible etiology include spontaneous coronary artery dissection, acute plaque rupture/erosion or stress- induced cardiomyopathy. Treatment based on the findings of cardiac catheter ization. Complete smoking cessation the future was advised strongly. She will eventually need carotid duplex for bilateral carotid bruit. Will follow up with her as outpatient after cardiac catheterization. Thank you for allowing me to partake in the care Time Spent With Patient Time: Total time managing care of this patient today ____ minutes. Procedures Date of Service Date of Service: 09/29/22
[2022-09-29 16:36] LABS: PTT Heparin Drip 143.1 SEC (53-77.9)
[2022-09-29 16:41] LABS: Troponin-I High Sensitivity 328.9 ng/L (<3.5-17.0)
[2022-09-29 17:49] VITALS: BP 141/71; PULSE 78; RESP 16; O2SAT 94
[2022-09-29 18:41] VITALS: BP 111/66; PULSE 73; RESP 16; TEMP 37.1; O2SAT 95
--- NOTE | 2022-09-29 19:10 | MHC.EDTECH ---
@[id number] CALL PLACED TO [facility] PT TX LINE TO CHECK ON ROOM ASSIGNMENT @ ALEA SIMONS REQUEST CELE ANSWERS AND GIVES M5 RM23 RN TO RN [phone]
--- NOTE | 2022-09-29 19:32 | PC.NURSE ---
nurse to nurse called to [facility]
--- NOTE | 2022-09-29 20:00 | PC.NURSE ---
pt a&o, no sob or chest pain, pt on Heparin drip, Nitro paste removed. pt on route to [facility]
== END 2022-09-29 20:07 | disposition short-term general hospital (02) ==
PROVIDERS: Nurse Practitioner Family; Physician Assistant Medical; Emergency Provider Emergency Medicine; PCP Physician Assistant
DX: I21.4 Non-ST elevation (NSTEMI) myocardial infarction (principal); R05.9 Cough, unspecified; Z20.822 Contact with and (suspected) exposure to COVID-19; I10 Essential (primary) hypertension; F17.210 Nicotine dependence, cigarettes, uncomplicated; K21.9 Gastro-esophageal reflux disease without esophagitis; K86.81 Exocrine pancreatic insufficiency; R10.13 Epigastric pain; K58.2 Mixed irritable bowel syndrome; K59.04 Chronic idiopathic constipation; R14.0 Abdominal distension (gaseous)
CPT/HCPCS: 36415; 80053; 84484; 85027; 85379; 85610; 85730; 87635; 93005; 96365; 96366; 96375; 96376; 99212; 99285; J1643; J2270; J2405

== ENCOUNTER 2022-11-07 08:13 | Outpatient (REF) | payer MEDICARE, MEDICAID, SELFPAY ==
--- NOTE | ~2022-11-07 | XR_ITS ---
EXAMINATION: Chest and sternum x-ray CLINICAL INFORMATION: Atherosclerosis of coronary artery bypass grafts COMPARISON: Previous chest x-ray June 2022 TECHNIQUE: 2 views of the chest and 2 views of the sternum FINDINGS: Chest: The cardiac and mediastinal contours are normal. There are post-CABG changes The interval from June 2022. Hilar and mediastinal contours are unremarkable. The lungs are clear. No pleural effusion or pneumothorax. Median sternotomy with cerclage wires and small plates and screws. Degenerative changes of the spine. Sternum: No fracture or dislocation. New sternal hardware with cerclage wires and small plates and screws. Surgical hardware appears intact. Adjacent soft tissues appear normal. XR/XR sternum min 2V IMPRESSION: New post CABG changes. No evidence for acute disease in the chest. New median sternotomy hardware with cerclage wires and small plates and screws that appear intact.
--- NOTE | ~2022-11-07 | XR_ITS ---
EXAMINATION: Chest and sternum x-ray CLINICAL INFORMATION: Atherosclerosis of coronary artery bypass grafts COMPARISON: Previous chest x-ray June 2022 TECHNIQUE: 2 views of the chest and 2 views of the sternum FINDINGS: Chest: The cardiac and mediastinal contours are normal. There are post-CABG changes The interval from June 2022. Hilar and mediastinal contours are unremarkable. The lungs are clear. No pleural effusion or pneumothorax. Median sternotomy with cerclage wires and small plates and screws. Degenerative changes of the spine. Sternum: No fracture or dislocation. New sternal hardware with cerclage wires and small plates and screws. Surgical hardware appears intact. Adjacent soft tissues appear normal. XR/XR chest 2V IMPRESSION: New post CABG changes. No evidence for acute disease in the chest. New median sternotomy hardware with cerclage wires and small plates and screws that appear intact.
[2022-11-07 09:04] LABS: Hematocrit 35.7 % (37.0-47.0); Hemoglobin 11.1 g/dl (12.0-16.0); Mean Corpuscular HGB Conc 31.1 g/dl (31.0-35.0); Mean Corpuscular Hemoglobin 27.4 pg (27.0-33.0); Mean Corpuscular Volume 88.1 fL (80.0-98.0); Mean Platelet Volume 9.9 fL (9.4-12.3); Platelet Count 436 X10*3/uL (160-400); Red Blood Count 4.05 X10*6/uL (4.20-5.50); Red Cell Distribution Width 13.9 % (11.0-16.0); White Blood Count 10.6 X10*3/uL (4.8-10.8)
[2022-11-07 09:41] LABS: Alanine Aminotransferase 19 U/L (0-31); Alkaline Phosphatase 114 U/L (39-117); Anion Gap 13 (12-20); Aspartate Amino Transferase 16 U/L (5-31); Bilirubin Total 0.5 mg/dL (0.0-1.0); Blood Urea Nitrogen 24 mg/dL (9-16); Calcium 9.8 mg/dL (8.4-10.2); Carbon Dioxide 25 mmol/L (22-29); Chloride 107 mmol/L (96-108); Cholesterol 126 mg/dL; Estimated Glomerular Filt Rate 60; Glucose Fasting 99 mg/dL (60-99); HDL Cholesterol 48 mg/dL; LDL Cholesterol Calculated 64 mg/dl; Potassium 4.8 mmol/L (3.3-5.1); Sodium 140 mmol/L (135-145); Triglycerides 74 mg/dL
[2022-11-07 09:43] LABS: TSH reflex Free T4 1.48 uIU/mL (0.32-4.0)
== END 2022-11-07 08:14 | disposition home or self-care (01) ==
LOC: HO.LAB 08:13
PROVIDERS: PCP Physician Assistant; Visit Provider Physician Assistant
DX: I25.810 Atherosclerosis of coronary artery bypass graft(s) without angina pectoris (principal); E78.9 Disorder of lipoprotein metabolism, unspecified
CPT/HCPCS: 36415; 71046; 71120; 80053; 80061; 84443; 85027

== ENCOUNTER 2022-12-09 09:44 | Outpatient (REF) | payer MEDICARE, MEDICAID, SELFPAY ==
[2022-12-09 11:43] LABS: Hemoglobin 10.9 g/dl (12.0-16.0); Mean Corpuscular HGB Conc 30.3 g/dl (31.0-35.0); Mean Corpuscular Hemoglobin 25.8 pg (27.0-33.0); Mean Corpuscular Volume 85.1 fL (80.0-98.0); Platelet Count 440 X10*3/uL (160-400); Red Blood Count 4.23 X10*6/uL (4.20-5.50); Red Cell Distribution Width 14.6 % (11.0-16.0); White Blood Count 9.4 X10*3/uL (4.8-10.8)
[2022-12-09 12:42] LABS: Alanine Aminotransferase 17 U/L (0-31); Alkaline Phosphatase 108 U/L (39-117); Anion Gap 11 (12-20); Aspartate Amino Transferase 14 U/L (5-31); Bilirubin Total 0.3 mg/dL (0.0-1.0); Blood Urea Nitrogen 20 mg/dL (9-16); Calcium 9.4 mg/dL (8.4-10.2); Carbon Dioxide 27 mmol/L (22-29); Chloride 106 mmol/L (96-108); Estimated Glomerular Filt Rate > 60; Glucose Random 93 mg/dL (60-115); Lipase 17 U/L (8-78); Potassium 4.6 mmol/L (3.3-5.1); Sodium 139 mmol/L (135-145); Total Protein 7.1 g/dL (6.5-8.0)
== END 2022-12-09 09:45 | disposition home or self-care (01) ==
LOC: HO.LAB 09:44
PROVIDERS: PCP Physician Assistant; Visit Provider Nurse Practitioner Family
DX: R10.9 Unspecified abdominal pain (principal); K21.9 Gastro-esophageal reflux disease without esophagitis; K58.2 Mixed irritable bowel syndrome; K86.81 Exocrine pancreatic insufficiency; R14.0 Abdominal distension (gaseous)
CPT/HCPCS: 36415; 80053; 83690; 85027; 99212

== ENCOUNTER 2022-12-09 09:44 | Outpatient (AMB) | payer MEDICARE, MEDICAID, SELFPAY ==
[2022-12-09 10:03] VITALS: BP 136/66; PULSE 75; BMI 37.4
--- NOTE | 2022-12-09 10:03 | A.OFFVIS_ITS ---
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 Accompanied by: Daughter Allergies calcium [Calcium] Allergy (Severe, Verified 12/12/22 09:44) HIVES doxycycline [Doxycycline] Allergy (Severe, Verified 12/12/22 09:44) FACIAL SWELLING,almost killed pt,inhouse for weakness,,incontinence?seizures Penicillins Allergy (Severe, Verified 12/12/22 09:44) Facial Swelling lactose Allergy (Mild, Verified 12/12/22 09:44) Unknown amoxicillin Allergy (Unknown, Verified 12/12/22 09:44) Throat swelling azithromycin [AZITHROMYCIN] Allergy (Unknown, Verified 12/12/22 09:44) Bloody Diarrhea cefuroxime [CEFUROXIME] Allergy (Unknown, Verified 12/12/22 09:44) Angioedema ciprofloxacin [From Cipro] Allergy (Unknown, Verified 12/12/22 09:44) Unknown clindamycin [CLINDAMYCIN] Allergy (Unknown, Verified 12/12/22 09:44) Anaphylaxis erythromycin base Allergy (Unknown, Verified 12/12/22 09:44) Diarrhea iron Allergy (Unknown, Verified 12/12/22 09:44) Unknown levofloxacin [From Levaquin] Allergy (Unknown, Verified 12/12/22 09:44) Unknown peanut [Peanut] Allergy (Unknown, Verified 12/12/22 09:44) Itching penicillin V Allergy (Unknown, Verified 12/12/22 09:44) ears and face swell,throat swell Sulfa (Sulfonamide Antibiotics) [SULFA(SULFONAMIDE ANTIBIOTICS)] Allergy (Unknown, Verified 12/12/22 09:44) ANAPHYLAXIS, swelling body,welts cefazolin Adverse Reaction (Mild, Verified 12/12/22 09:44) Anaphylaxis RAISIN Allergy (Unknown, Uncoded 12/09/22 10:04) Itching TURNIPS Allergy (Unknown, Uncoded 12/09/22 10:04) Unknown cheetos Allergy (Uncoded 12/09/22 10:04) itchy, rash cranberry juice Allergy (Uncoded 12/09/22 10:04) mouth itchy, bumps grape juice Allergy (Uncoded 12/09/22 10:04) mouth itchy, bumps HPI 4 mnth follow up HPI Details LAST VISIT: GERD (gastroesophageal reflux disease) Continue avoiding dietary triggers. Patient was encouraged to not eat 3 hours before lying down. Will hold off on giving her PPI at this time. Patient states that she would prefer not to take any medications at this time. Exocrine pancreatic insufficiency Continue taking digestive enzymes. Discussed also with patient dietary triggers. Staying on food that is low fat. Patient will call the office if she will have worsening symptoms. Epigastric abdominal pain Occasional epigastric discomfort most likely related to the food the patient please. Avoiding late night snacking and eating large meals. Patient states that she does not eat that much and denies eating larger portions. IBS (irritable bowel syndrome) Continue low FODMAP diet. Continue digestive enzyme and probiotics Chronic idiopathic constipation Patient opted not to take Linzess. Patient was encouraged to increase fluid intake and activity to promote better bowel motility. Postprandial abdominal bloating Occasional postprandial abdominal bloating. Discussed with patient the importance of low FODMAP diet patient will try the digestive enzymes and probiotics and will see if this is going to be helpful. I will see her in 3 months, sooner on as needed basis. Patient is agreeable to this plan and verbalizes understanding of instructions. She was given the opportunity to ask questions and all questions answered. ? TODAY'S Patient is here today for follow-up. Patient reports to me that last month after her appointment she and up in the emergency room with chest pressure tightness around her arms. Patient's was found to have RI, transferred to [facility] where she underwent triple bypass. Patient reports that she did not had usual like chest pain. Patient reports feeling heavy like someone was squeezing her. Patient is following up with [facility], however she would like to switch to [facility] as is closer for her. Patient continues to have postprandial loose stools and sometimes feels constipated. She is taking digestive enzymes- vegan with each meal. Patient reports to have postprandial abdominal bloating. Tried gluten free breath, however due to taste patient switched back. [facility] Medical History Appendicitis Bilateral knee pain CAD (coronary artery disease) Carpal tunnel syndrome Chronic headaches Cough Depression Diverticulosis Exocrine pancreatic insufficiency Fibromyalgia IBS (irritable bowel syndrome) Kidney stone Lichen sclerosus Pre-op examination Rectal prolapse Right shoulder injury Small intestinal bacterial overgrowth Vertigo Surgical History History of endometrial ablation History of esophagogastroduodenoscopy (EGD) Hx of appendectomy Hx of carpal tunnel repair (~07/2019) Hx of cholecystectomy Hx of colonoscopy Hx of rotator cuff surgery Hx of shoulder surgery Family History Father Myocardial infarction, Onset Age: 46 Mother Congestive heart failure Stomach problems Stomach ulcer Anxiety and depression Myocardial infarction, Onset Age: 50 Mental health disorder Sister Heart problem Myocardial infarction, Onset Age: 59 Sister Afib Brother Throat cancer Lung cancer Social History Household Members: Family Housing: Apartment Alcohol intake: never Patient Tobacco Use Status: Former Tobacco user Tobacco use type: Cigarette Cigarette Packs Per Day: 1 Cigarettes Per Day: 20 Years Smoked: 30 +/- e-Cigarette/Vaping Use: Never Used Second Hand Smoke Exposure: No service: No Current occupational status: disabled 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 Cognitive needs: No Hearing needs: No Vision needs: Yes (Glasses) Female Reproductive History Menstrual Age of Menarche: 15 Review of Systems Const Denies weight gain and Denies weight loss ENT Reports no additional complaints, Denies dysphagia and Denies odynophagia Card Reports no additional complaints Resp Reports no additional complaints GI Denies abdominal pain, Denies belching, Denies melena, Reports bloating, Reports constipation, Denies dysphagia, Denies excessive flatus, Denies dyspepsia, Reports heartburn, Denies diarrhea, Reports loose stools, Denies nausea, Denies odynophagia and Denies vomiting Reports no additional complaints Musc Reports no additional complaints Neuro Reports no additional complaints Psych Reports no additional complaints Endo Reports no additional complaints Physical Exam Vital Signs: Last Vital Signs Pulse 75 12/09/22 10:03 BP 136/66 12/09/22 10:03 BMI result Body Mass Index 37.4 Const General: no acute distress and well developed Nutritional Appearance: obese Orientation/consciousness: patient oriented x3 HEENT Head: Yes normal to inspection, Yes normocephalic and Yes atraumatic Face and sinus: Yes normal facial exam Mouth: Normal oral and palatal mucosa present Throat: Yes posterior oropharynx normal, Yes tonsils normal and Yes uvula midline Eyes General: appearance normal, both eyes and all related structures Neck Neck: Yes normal visual inspection, Yes full ROM and Yes trachea midline Thyroid: Thyroid normal Resp Effort & Inspection: normal respiratory effort, able to speak in complete sentences, no tracheal deviation and symmetric chest movement Auscultation: clear to auscultation bilaterally Cardio Other: Status post CABG, covered with dressing surgical incision on patient's chest Rate: regular rate Heart sounds: S1 normal heart sound present and S2 normal heart sound present GI Inspection: Yes normal to inspection, No distended and Yes obesity Palpation (GI): Soft to palpation, not firm, nontender and No hepatosplenomegaly present Auscultation: normal bowel sounds General: Yes no CVA tenderness Back/Spine/Pelvis Back: no CVA tenderness Skin General skin exam: elasticity normal, turgor normal and dry skin Neuro General: patient oriented x3 Psych Appearance: grossly normal Mental Status: mental status grossly normal Speech and movement: Normal speech and movement present Assessment & Plan Assessment & Plan (1) IBS (irritable bowel syndrome): Code(s): K58.9 - Irritable bowel syndrome without diarrhea Qualifiers: Irritable bowel syndrome type: with both diarrhea and constipation Qualified Code(s): K58.2 - Mixed irritable bowel syndrome Plan: Continue avoiding dietary triggers. Patient will try as best as she can not low FODMAP diet. (2) Exocrine pancreatic insufficiency: Code(s): K86.81 - Exocrine pancreatic insufficiency Plan: Continue enzyme therapy with each meal (3) Abdominal bloating: Code(s): R14.0 - Abdominal distension (gaseous) Plan: Patient reports abdominal bloating which is the symptom depending on what she eats with diagnosis of pancreatic insufficiency. Patient was encouraged to move her bowels. She was encouraged to increase fluids and activity to promote better bowel motility. Will order lipase, CBC and CMP. I will see patient next month, sooner on as needed basis. She is agreeable to this plan and verbalizes understanding of instructions. She was given the opportunity to ask questions and all questions answered. Thank you for allowing me to participate in her care Orders: Orders Complete Blood Count no Diff 12/09/22 K21.9 - Gastro-esophageal reflux disease without esophagitis Comprehensive Met. Panel 12/09/22 K21.9 - Gastro-esophageal reflux disease without esophagitis Lipase 12/09/22 R10.9 - Unspecified abdominal pain Coding Level of Care Code Est Pt Level 4 (32094) Diagnoses IBS (irritable bowel syndrome) K58.2 Irritable bowel syndrome type: with both diarrhea and constipation Exocrine pancreatic insufficiency K86.81 Abdominal bloating R14.0 Time Spent (min) 40 Comment 25 minute spent with patient and additional 15 minutes spent reviewing her records
== END 2022-12-09 10:48 | disposition home or self-care (01) ==
PROVIDERS: PCP Physician Assistant; Visit Provider Nurse Practitioner Family
DX: K58.2 Mixed irritable bowel syndrome (principal); K86.81 Exocrine pancreatic insufficiency; R14.0 Abdominal distension (gaseous)
CPT/HCPCS: 99214

== ENCOUNTER 2022-12-12 09:27 | Outpatient (AMB) | payer MEDICARE, MEDICAID, SELFPAY ==
--- NOTE | 2022-12-12 09:27 | A.OFFPC_ITS ---
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 Accompanied by: Self / Same As Patient Allergies calcium [Calcium] Allergy (Severe, Verified 12/12/22 09:44) HIVES doxycycline [Doxycycline] Allergy (Severe, Verified 12/12/22 09:44) FACIAL SWELLING,almost killed pt,inhouse for weakness,,incontinence?seizures Penicillins Allergy (Severe, Verified 12/12/22 09:44) Facial Swelling lactose Allergy (Mild, Verified 12/12/22 09:44) Unknown amoxicillin Allergy (Unknown, Verified 12/12/22 09:44) Throat swelling azithromycin [AZITHROMYCIN] Allergy (Unknown, Verified 12/12/22 09:44) Bloody Diarrhea cefuroxime [CEFUROXIME] Allergy (Unknown, Verified 12/12/22 09:44) Angioedema ciprofloxacin [From Cipro] Allergy (Unknown, Verified 12/12/22 09:44) Unknown clindamycin [CLINDAMYCIN] Allergy (Unknown, Verified 12/12/22 09:44) Anaphylaxis erythromycin base Allergy (Unknown, Verified 12/12/22 09:44) Diarrhea iron Allergy (Unknown, Verified 12/12/22 09:44) Unknown levofloxacin [From Levaquin] Allergy (Unknown, Verified 12/12/22 09:44) Unknown peanut [Peanut] Allergy (Unknown, Verified 12/12/22 09:44) Itching penicillin V Allergy (Unknown, Verified 12/12/22 09:44) ears and face swell,throat swell Sulfa (Sulfonamide Antibiotics) [SULFA(SULFONAMIDE ANTIBIOTICS)] Allergy (Unknown, Verified 12/12/22 09:44) ANAPHYLAXIS, swelling body,welts cefazolin Adverse Reaction (Mild, Verified 12/12/22 09:44) Anaphylaxis RAISIN Allergy (Unknown, Uncoded 12/09/22 10:04) Itching TURNIPS Allergy (Unknown, Uncoded 12/09/22 10:04) Unknown cheetos Allergy (Uncoded 12/09/22 10:04) itchy, rash cranberry juice Allergy (Uncoded 12/09/22 10:04) mouth itchy, bumps grape juice Allergy (Uncoded 12/09/22 10:04) mouth itchy, bumps Medication List - Last Reconciled 12/12/22 by Angelo Tejada PA-C aspirin (Adult Aspirin Regimen) 81 mg PO DAILY 90 days atorvastatin 80 mg PO DAILY 90 days cholecalciferol (vitamin D3) 50 mcg PO DAILY clopidogrel 75 mg PO DAILY digestive enzymes 1 cap PO DAILY furosemide 20 mg PO DAILY L.acid,gas,krishna,rham-B.ani-cran 5 billion cell- 250 mg (up4 Probiotics Women's) 1 cap PO DAILY levalbuterol tartrate 45 mcg/actuation 2 inhalations inhalation Q6H 30 days Nicoderm CQ (nicotine) 1 patch transdermal DAILY 21 days NS oxycodone 5 mg PO Q6H PRN pyridoxine (vitamin B6) 100 mg PO DAILY 90 days Tobacco use date assessed: 12/12/22 Dental Screening Dental Screen Date: 12/12/22 Did you have a dental visit in the last 12 months?: Yes Did you have a dental problem in the last 6 months where you did not have access to dental care?: No Was dental information given to patient?: Patient has dentist HPI [facility] 10/[phone] [facility] Details Patient is a 57-year-old female being evaluated today via video conference. Patient has a past medical history significant for coronary artery disease status post bypass graft complicated by sternal wound requiring wound VAC, former smoker, hyperlipidemia. Has visiting nurse every other day doing wound care for her , pain is better Off antibiotics and pain meds. Now doing well has less pain and has family / VNA nurse helping her with wound care. Concern--> reports having a skin rash on her foot over the last several months. Has not tried any bgrj-[id number]-[id number] topical treatments. Also reviewed labs with patient and noted worsening anemia likely secondary to her do anti-platelet therapy. Patient willing to start iron in. [facility] Medical History Appendicitis Bilateral knee pain CAD (coronary artery disease) Carpal tunnel syndrome Chronic headaches Cough Depression Diverticulosis Exocrine pancreatic insufficiency Fibromyalgia IBS (irritable bowel syndrome) Kidney stone Lichen sclerosus Pre-op examination Rectal prolapse Right shoulder injury Small intestinal bacterial overgrowth Vertigo Surgical History History of endometrial ablation History of esophagogastroduodenoscopy (EGD) Hx of appendectomy Hx of carpal tunnel repair (~07/2019) Hx of cholecystectomy Hx of colonoscopy Hx of rotator cuff surgery Hx of shoulder surgery Family History Father Myocardial infarction, Onset Age: 46 Mother Congestive heart failure Stomach problems Stomach ulcer Anxiety and depression Myocardial infarction, Onset Age: 50 Mental health disorder Sister Heart problem Myocardial infarction, Onset Age: 59 Sister Afib Brother Throat cancer Lung cancer Social History Household Members: Family Housing: Apartment Alcohol intake: never Patient Tobacco Use Status: Former Tobacco user Tobacco use type: Cigarette Cigarette Packs Per Day: 1 Cigarettes Per Day: 20 Years Smoked: 30 +/- Packs Per Year: 0 Packs per year/per ci.00 e-Cigarette/Vaping Use: Never Used Second Hand Smoke Exposure: No service: No Current occupational status: disabled 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 1. Little interest or pleasure in doing things: not at all 2. Feeling down, depressed, or hopeless: not at all 3. Trouble falling or staying asleep, or sleeping too much: not at all 4. Feeling tired or having little energy: not at all 5. Poor appetite or overeating: not at all 6. Feeling bad about yourself - or that you are a failure or have let yourself or your family down: not at all 7. Trouble concentrating on things, such as reading the newspaper or watching television: not at all 8. Moving or speaking so slowly that other people could have noticed. Or the opposite - being so fidgety or restless that you have been moving around a lot more than usual: not at all 9. Thoughts that you would be better off or of hurting yourself in some way: not at all Total score: 0 Depression Screening Interpretation: Negative 93357 - PHQ-9 Billing: Yes Source: Developed by Drs. Jeronimo Najera, Lyly Triplett, Kike Nuñez and colleagues, with an educational melo from [employer]. Thrive Questionnaire Date Thrive assessed: 12/12/22 I am a: Patient What is your living situation today?: I have a steady place to live Within the past 12 months, did the food you bought not last and you didn't have the money to get more?: Never true Within the past 12 months, did you worry whether your food would run out before you got money to buy more?: Never true Do you have trouble paying for medicines?: No Do you have trouble getting transportation to medical appointments?: No Do you have trouble paying your heating and electricity bill?: No Do you have trouble taking care of your child, family member or friend?: No Do you have trouble with day-to-day activities such as bathing, preparing meals, shopping, managing finances, etc.?: No Are you currently unemployed and looking for a job?: No Are you interested in more education?: No Currently or been in a relationship where the following occur: no concerns reported AUDIT C Alcohol Use Questionnaire (AUDIT-C) 1. How often do you have a drink containing alcohol?: Never Total Score: 0 JOHANNY-7 AMB Questionnaire JOHANNY-7 Date JOHANNY - 7 assessed: 12/12/22 Feeling nervous, anxious, or on edge: 0 = Not at all Not being able to stop or control worryin = Not at all Worrying too much about different things: 0 = Not at all Trouble relaxin = Not at all Being so restless that it is hard to sit still: 0 = Not at all Becoming easily annoyed or irritable: 0 = Not at all Feeling afraid as if something awful might happen: 0 = Not at all Total JOHANNY-7 score (0-4 normal; 5-9 mild; 10-14 moderate; 15-21 severe): 0 Source: Developed by Drs. Jeronimo Najera, Lyly Triplett, Kike Nuñez and colleagues, with an educational melo from [employer]. Review of Systems Const Denies headache(s) Eyes Denies loss of vision ENT Denies vertigo, Denies dizziness, Denies headache(s) and Denies sore throat Card Denies chest pain, Denies leg edema and Denies lightheadedness Resp Denies cough, Denies hemoptysis and Denies wheezing GI Denies abdominal pain, Denies melena, Denies constipation, Denies diarrhea and Denies vomiting Denies urinary frequency, Denies dysuria and Denies urinary urgency Musc Denies arthralgias, Denies joint swelling, Denies numbness and Denies tingling Neuro Denies behavioral changes, Denies vertigo, Denies dizziness, Denies headache(s), Denies loss of vision, Denies memory loss, Denies numbness and Denies tingling Psych Denies anxiety, Denies behavioral changes, Denies depression, Denies memory loss and Denies panic attacks Elpidio/Lymph Denies easy bleeding and Denies easy bruising Aller/Immun Denies wheezing Physical exam (Primary Care) Tobacco/Smoking Status: Tobacco use Status Tobacco use date assessed 12/12/22 12/12/22 09:30 Patient Tobacco Use Status Former Tobacco user 12/12/22 09:30 Tobacco use type Cigarette 12/12/22 09:30 e-Cigarette/Vaping Use Never Used 12/12/22 09:30 PHQ-9: PHQ-9 Score PHQ-9: Total score 0 12/12/22 09:41 Depression Screening Interpretation: Negative Thrive Assessment: Date of Thrive Assessment Date Thrive assessed 12/12/22 12/12/22 09:30 Currently or been in a relationship where the following occur: no concerns reported Telehealth Telehealth Location of provider rendering services: practice address Location of patient: address on file Patient Identification confirmed using: Name, : Yes Telehealth method: video (Crono) Patient verbally consented to treatment: Yes Patient verbally consented to billing insurance company: Yes Patient informed of any privacy concerns related to visit: Yes Minutes spent on Phone/Video with Pt.: 15 Assessment and Plan Assessment & Plan (1) CAD (coronary artery disease) of bypass graft: Code(s): I25.810 - Atherosclerosis of coronary artery bypass graft(s) without angina pectoris Qualifiers: [place] vs. transplanted heart: [place] heart Associated angina: without angina Qualified Code(s): I25.810 - Atherosclerosis of coronary artery bypass graft(s) without angina pectoris Plan: continues to follow cardiac surgery at [facility] , has completely quit smoking over the last several months. Would like a local [place] electrician refinery and start cardiac rehab in near future. (2) Infection of wound of sternum: Code(s): S21.101A - Unspecified open wound of right front wall of thorax without penetration into thoracic cavity, initial encounter; L08.9 - Local infection of the skin and subcutaneous tissue, unspecified Plan: Patient is status post open heart surgery, was complicated by a sternal infection. Would required wound VAC though reports wound VAC cause her more chest pain. Was placed on antibiotics which has been finished. Now has visiting nurses doi ng wound care at home. She anticipates starting cardiac rehab after sternal wound is completely heard (3) Tinea pedis: Code(s): B35.3 - Tinea pedis Qualifiers: Laterality: right Qualified Code(s): B35.3 - Tinea pedis Plan: Reports having raised bumpy lesion over the tip of her right great toe. Will supply with antifungal topical treatment (4) Anemia: Code(s): D64.9 - Anemia, unspecified Qualifiers: Anemia type: iron deficiency Iron deficiency anemia type: unspecified iron deficiency Qualified Code(s): D50.9 - Iron deficiency anemia, unspecified Plan: Noted to have anemia on most recent labs. Will start iron supplementation. Has history of an unknown reaction though is willing to try again and if halves reaction will discontinue medication. Patient denies any dark stools or blood in urine. Anemia likely secondary to do anti-platelet therapy. Orders: Orders Comprehensive [place]. Panel Fast 3 Months I25.810 - Atherosclerosis of coronary artery bypass graft(s) without angina pectoris Lipid Panel 3 Months I25.810 - Atherosclerosis of coronary artery bypass graft(s) without angina pectoris Complete Blood Count no Diff 3 Months I25.810 - Atherosclerosis of coronary artery bypass graft(s) without angina pectoris Referrals Cardiology Referral I25.810 - Atherosclerosis of coronary artery bypass graft(s) without angina pectoris Medications: New nystatin 1 appl topical DAILY 14 days 30 grams 0RF B35.3 - Tinea pedis ferrous sulfate 325 mg PO DAILY 30 days 30 tabs 2RF D50.9 - Iron deficiency anemia, unspecified Coding Level of Care Code Tele Est Pt Level 4 (30139) Diagnoses CAD (coronary artery disease) of bypass graft I25.810 [place] vs. transplanted heart: [place] heart Associated angina: without angina Infection of wound of sternum S21.101A; L08.9 Tinea pedis B35.3 Laterality: right Anemia D50.9 Anemia type: iron deficiency Iron deficiency anemia type: unspecified iron deficiency
== END 2022-12-12 11:12 | disposition home or self-care (01) ==
LOC: HO.HMGH 09:27
PROVIDERS: PCP Physician Assistant; Visit Provider Physician Assistant
DX: I25.810 Atherosclerosis of coronary artery bypass graft(s) without angina pectoris (principal); S21.101A Unspecified open wound of right front wall of thorax without penetration into thoracic cavity, initial encounter; L08.9 Local infection of the skin and subcutaneous tissue, unspecified; B35.3 Tinea pedis; D50.9 Iron deficiency anemia, unspecified
CPT/HCPCS: 99214

== ENCOUNTER 2023-01-13 09:30 | Outpatient (REF) | payer MEDICARE, MEDICAID, SELFPAY ==
--- NOTE | ~2023-01-13 | US_ITS ---
EXAMINATION: US RETROPERITONEAL LIMITED (RENAL ONLY) CLINICAL INFORMATION: Calculus of kidney. COMPARISON: Renal ultrasound 10/04/2021. TECHNIQUE: Real-time imaging of the kidneys. FINDINGS: RIGHT KIDNEY: 10.8 x 5.6 x 6.1 cm (SAG x AP x TRV). The kidney is normal in size, contour, and echogenicity. Renal cortical thickness is normal. No calculi or focal parenchymal lesions. No hydronephrosis. LEFT KIDNEY: 10.4 x 5.7 x 4.8 cm (SAG x AP x TRV). The kidney is normal in size, contour, and echogenicity. Renal cortical thickness is normal. No calculi or focal parenchymal lesions. No hydronephrosis. US/US renal BI IMPRESSION: No significant sonographic abnormality.
== END 2023-01-13 09:31 | disposition home or self-care (01) ==
LOC: HO.US 09:30
PROVIDERS: PCP Physician Assistant; Visit Provider Urology
DX: N20.0 Calculus of kidney (principal)
CPT/HCPCS: 76775

== ENCOUNTER 2023-01-16 09:20 | Outpatient (AMB) | payer MEDICARE, MEDICAID, SELFPAY ==
--- NOTE | 2023-01-16 09:28 | MHC.OFFVIS ---
Intake Vital Signs 01/16/23 09:30 Height 5 ft Weight 197 lb 8.547 oz BMI 38.6 BP 102/70 Blood Pressure Location Lt brachial Position Sitting Pulse 80 Pulse Source Monitor Intake Visit Reasons: [facility] dc fu- prev KM pt Intake Note: New patient visit with EKG after recent discharge from [facility], patient previously seen by Dr. Crawley in 2018. Manager Spanish Required: No Accompanied by: Self / Same As Patient Allergies calcium [Calcium] Allergy (Severe, Verified 01/16/23 09:32) HIVES doxycycline [Doxycycline] Allergy (Severe, Verified 01/16/23 09:32) FACIAL SWELLING,almost killed pt,inhouse for weakness,,incontinence?seizures Penicillins Allergy (Severe, Verified 01/16/23 09:32) Facial Swelling lactose Allergy (Mild, Verified 01/16/23 09:32) Unknown amoxicillin Allergy (Unknown, Verified 01/16/23 09:32) Throat swelling azithromycin [AZITHROMYCIN] Allergy (Unknown, Verified 01/16/23 09:32) Bloody Diarrhea cefuroxime [CEFUROXIME] Allergy (Unknown, Verified 01/16/23 09:32) Angioedema ciprofloxacin [From Cipro] Allergy (Unknown, Verified 01/16/23 09:32) Unknown clindamycin [CLINDAMYCIN] Allergy (Unknown, Verified 01/16/23 09:32) Anaphylaxis erythromycin base Allergy (Unknown, Verified 01/16/23 09:32) Diarrhea iron Allergy (Unknown, Verified 01/16/23 09:32) Unknown levofloxacin [From Levaquin] Allergy (Unknown, Verified 01/16/23 09:32) Unknown peanut [Peanut] Allergy (Unknown, Verified 01/16/23 09:32) Itching penicillin V Allergy (Unknown, Verified 01/16/23 09:32) ears and face swell,throat swell Sulfa (Sulfonamide Antibiotics) [SULFA(SULFONAMIDE ANTIBIOTICS)] Allergy (Unknown, Verified 01/16/23 09:32) ANAPHYLAXIS, swelling body,welts cefazolin Adverse Reaction (Mild, Verified 01/16/23 09:32) Anaphylaxis RAISIN Allergy (Unknown, Uncoded 01/16/23 09:32) Itching TURNIPS Allergy (Unknown, Uncoded 01/16/23 09:32) Unknown cheetos Allergy (Uncoded 01/16/23 09:32) itchy, rash cranberry juice Allergy (Uncoded 01/16/23 09:32) mouth itchy, bumps grape juice Allergy (Uncoded 01/16/23 09:32) mouth itchy, bumps Medication List - Last Reconciled 01/16/23 by Rashad Crawley MD aspirin (Adult Aspirin Regimen) 81 mg PO DAILY 90 days cholecalciferol (vitamin D3) 50 mcg PO DAILY clopidogrel 75 mg PO DAILY ferrous sulfate 325 mg PO DAILY 30 days levalbuterol tartrate 45 mcg/actuation 2 inhalations inhalation Q6H 30 days metoprolol succinate ER 50 mg PO DAILY pyridoxine (vitamin B6) 100 mg PO DAILY 90 days HPI HPI Comments History of Present Illness Details 57-year-old female who was seen by the in March 2018. She underwent exercise stress testing at that time. She has not follow-up with us since then. She recently presented to [facility] with chest pain and NSTEMI. She was transferred to [facility]. She underwent cardiac catheterization by Dr. Garg pre she was diagnosed with triple-vessel disease. She underwent coronary artery bypass surgery in September 2022. This was complicated by sternal wound infection requiring debridement in October 2022. She had wound VAC placed and also had prolonged antibiotics. Since then she has been released by cardiothoracic surgery. She is saying she still has some tenderness in the chest but no discharge. She has the no significant chest discomfort but is complaining of some dizziness off and on. She describes lightheaded feeling followed by and numbness all over her body. She is saying that she laid down and rest and improves. Her blood pressure in the office is low. She is saying that at home her blood pressure fluctuates between low and high and time blood pressures as high as 170s. She is saying that she could not tolerate atorvastatin hand due to her low blood pressure she has stop taking Lasix. She has not been exercising and has not started cardiac rehabilitation. [facility] Medical History (Updated 01/16/23 @ 10:11 by Rashad Crawley MD) Appendicitis Bilateral knee pain CAD (coronary artery disease) Carpal tunnel syndrome Chronic headaches Cough Depression Diverticulosis Exocrine pancreatic insufficiency Fibromyalgia IBS (irritable bowel syndrome) Kidney stone Lichen sclerosus Pre-op examination Rectal prolapse Right shoulder injury Small intestinal bacterial overgrowth Vertigo Surgical History (Updated 01/16/23 @ 10:11 by Rashad Crawley MD) History of endometrial ablation History of esophagogastroduodenoscopy (EGD) Hx of appendectomy Hx of carpal tunnel repair (~07/2019) Hx of cholecystectomy Hx of colonoscopy Hx of rotator cuff surgery Hx of shoulder surgery S/P triple vessel bypass Family History Father Myocardial infarction, Onset Age: 46 Mother Congestive heart failure Stomach problems Stomach ulcer Anxiety and depression Myocardial infarction, Onset Age: 50 Mental health disorder Sister Heart problem Myocardial infarction, Onset Age: 59 Sister Afib Brother Throat cancer Lung cancer Social History (Updated 01/16/23 @ 09:35 by INEZ Varela) Household Members: Family Housing: Apartment Alcohol intake: never Patient Tobacco Use Status: Former Tobacco user Quit Date: 2022 Tobacco use type: Cigarette Years Smoked: 30 +/- e-Cigarette/Vaping Use: Never Used Second Hand Smoke Exposure: No service: No Current occupational status: disabled 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 Cognitive needs: No Hearing needs: No Vision needs: Yes (Glasses) Female Reproductive History Menstrual Age of Menarche: 15 Review of Systems Const Denies chills, Denies daytime sleepiness, Denies fatigue, Denies fever(s), Denies frequent falls, Denies night sweats, Denies snoring, Denies weakness, Denies weight gain and Denies weight loss Eyes Denies loss of vision ENT Denies dizziness and Denies hearing loss Card Denies chest pain, Denies chest pain with activity, Denies syncope, Denies rapid heart rate, Denies edema, Denies claudication, Denies leg edema, Denies lightheadedness, Denies palpitations, Denies dyspnea, Denies dyspnea on exertion and Denies orthopnea Resp Denies cough, Denies excessive phlegm production, Denies dyspnea, Denies dyspnea on exertion, Denies snoring and Denies wheezing GI Denies abdominal pain, Denies hematochezia, Denies change in bowel habits, Denies change in stool character, Denies heartburn, Denies nausea and Denies vomiting Denies hematuria, Denies urinary frequency and Denies dysuria Musc Denies arthralgias, Denies muscle weakness, Denies numbness and Denies tingling Skin/Breast Denies nail changes and Denies rash Neuro Denies Abnormal speech present, Denies dizziness, Denies syncope, Denies frequent falls, Denies loss of vision, Denies memory loss, Denies numbness, Denies tingling and Denies weakness Psych Denies depression and Denies memory loss Endo Denies fatigue and Denies palpitations Aller/Immun Denies wheezing Physical Exam Vital Signs: Last Vital Signs Pulse 80 01/16/23 09:30 BP 102/70 01/16/23 09:30 BMI result Body Mass Index 38.6 GENERAL APPEARANCE: in no acute distress, pleasant. NECK: no carotid bruit, no jugular venous distention. SKIN: Right chest wall Band-Aid. Tenderness during auscultation. HEART: no murmurs, regular rate and rhythm. LUNGS: clear to auscultation bilaterally. ABDOMEN: soft, nontender. EXTREMITIES: no edema. PERIPHERAL PULSES: equal. NEUROLOGIC: No gross deficits, AAO X 3 Neuro Speech: No Abnormal speech present Office Procedures EKG Details: Sinus rhythm 80 beats per minute, nonspecific ST-T changes, QTC 422 milliseconds. [id number], Complete Assessment & Plan Assessment & Plan (1) CAD (coronary artery disease): Code(s): I25.10 - Atherosclerotic heart disease of [place] coronary artery without angina pectoris Qualifiers: Associated angina: without angina Coronary Disease-Associated Artery/Lesion type: bypass graft [place] vs. transplanted heart: [place] heart Qualified Code(s): I25.810 - Atherosclerosis of coronary artery bypass graft(s) without angina pectoris (2) S/P CABG (coronary artery bypass graft): Code(s): Z95.1 - Presence of aortocoronary bypass graft (3) Dizziness: Code(s): R42 - Dizziness and giddiness Plan 57-year-old female who is here for follow-up. She was last seen by me in 2018. Recent presentation to [facility] and then was transferred to [facility] for NSTEMI underwent cardiac catheterization which showed multivessel disease. Subsequent to that in September 2022 she underwent bypass surgery complicated by sternal wound infection. She had debridement and wound VAC placement. This has healed at this stage and she has been released by the cardiothoracic surgery. She is complaining of shortness of breath and fatigue. I have advised her to exercise but she is saying that she needs further imaging of her chest before she can start exercising. I have advised her to discuss it with cardiothoracic surgery. Her blood pressure is low and she has been complaining of some dizziness. I have advised her to cut the metoprolol to 25 mg daily. Continue other medications as before. We will get some basic blood workup on her. Not taking atorvastatin currently. I have advised her to start taking half a pill at 40 mg on Monday and Monday to see if she can tolerat it. Thank you for allowing me to participate in the care of your patient. Please feel free to contact me if you have any questions. Orders: Orders B Type Natriuretic Peptide Today I25.810 - Atherosclerosis of coronary artery bypass graft(s) without angina pectoris Comprehensive Met. Panel Today I25.810 - Atherosclerosis of coronary artery bypass graft(s) without angina pectoris Lipid Panel Today I25.810 - Atherosclerosis of coronary artery bypass graft(s) without angina pectoris TSH reflex Free T4 Today I25.810 - Atherosclerosis of coronary artery bypass graft(s) without angina pectoris Complete Blood Count no Diff Today I25.810 - Atherosclerosis of coronary artery bypass graft(s) without angina pectoris Medications: New metoprolol succinate ER (Toprol XL) 25 mg PO DAILY 60 tabs 3RF I25.810 - Atherosclerosis of coronary artery bypass graft(s) without angina pectoris atorvastatin 40 mg (1/2 x 80 mg) PO .mwf 1 tab 0RF I25.810 - Atherosclerosis of coronary artery bypass graft(s) without angina pectoris Coding Level of Care Code Est Pt Level 4 (99195) Diagnoses CAD (coronary artery disease) I25.810 Associated angina: without angina Coronary Disease-Associated Artery/Lesion type: bypass graft [place] vs. transplanted heart: [place] heart S/P CABG (coronary artery bypass graft) Z95.1 Dizziness R42 CPT Codes EKG - CPT: 22927-[id number], Complete ([id number])
[2023-01-16 09:30] VITALS: BP 102/70; PULSE 80; BMI 38.6
== END 2023-01-16 10:06 | disposition home or self-care (01) ==
PROVIDERS: PCP Physician Assistant; Referring Provider Physician Assistant; Visit Provider Internal Medicine Cardiovascular Disease
DX: I25.810 Atherosclerosis of coronary artery bypass graft(s) without angina pectoris (principal); Z95.1 Presence of aortocoronary bypass graft; R42 Dizziness and giddiness
CPT/HCPCS: 93010; 99214

== ENCOUNTER → 2023-01-16 09:20 | Outpatient (BNVA) | payer MEDICARE, MEDICAID, SELFPAY | PROVIDERS: PCP Physician Assistant; Referring Provider Physician Assistant; Visit Provider Internal Medicine Cardiovascular Disease | DX: I25.810 Atherosclerosis of coronary artery bypass graft(s) without angina pectoris (principal); R42 Dizziness and giddiness; Z95.1 Presence of aortocoronary bypass graft | CPT/HCPCS: 93005; 99212 ==

== ENCOUNTER 2023-01-17 08:12 | Outpatient (REF) | payer MEDICARE, MEDICAID, SELFPAY ==
[2023-01-17 08:51] LABS: Hematocrit 37.5 % (37.0-47.0); Hemoglobin 11.4 g/dl (12.0-16.0); Mean Corpuscular HGB Conc 30.4 g/dl (31.0-35.0); Mean Corpuscular Hemoglobin 24.5 pg (27.0-33.0); Mean Corpuscular Volume 80.5 fL (80.0-98.0); Mean Platelet Volume 9.6 fL (9.4-12.3); Platelet Count 419 X10*3/uL (160-400); Red Blood Count 4.66 X10*6/uL (4.20-5.50); Red Cell Distribution Width 15.2 % (11.0-16.0); White Blood Count 8.6 X10*3/uL (4.8-10.8)
[2023-01-17 09:12] LABS: B Type Natriuretic Peptide 16 pg/mL (<100)
[2023-01-17 09:21] LABS: Alanine Aminotransferase 17 U/L (0-31); Albumin Level 3.9 g/dL (3.5-5.0); Alkaline Phosphatase 105 U/L (39-117); Anion Gap 12 (12-20); Aspartate Amino Transferase 13 U/L (5-31); Bilirubin Total 0.2 mg/dL (0.0-1.0); Blood Urea Nitrogen 22 mg/dL (9-16); Calcium 9.6 mg/dL (8.4-10.2); Carbon Dioxide 26 mmol/L (22-29); Chloride 107 mmol/L (96-108); Cholesterol 189 mg/dL (<200); Estimated Glomerular Filt Rate > 60; Glucose Random 102 mg/dL (60-115); HDL Cholesterol 53 mg/dL (>40); LDL Cholesterol Calculated 123 mg/dL (<100); Potassium 4.8 mmol/L (3.3-5.1); Sodium 140 mmol/L (135-145); Total Protein 7.3 g/dL (6.5-8.0); Triglycerides 66 mg/dL (<150)
[2023-01-17 09:38] LABS: TSH reflex Free T4 1.09 uIU/mL (0.32-4.0)
== END 2023-01-17 08:13 | disposition home or self-care (01) ==
LOC: HO.LAB 08:12
PROVIDERS: PCP Physician Assistant; Visit Provider Internal Medicine Cardiovascular Disease
DX: I25.810 Atherosclerosis of coronary artery bypass graft(s) without angina pectoris (principal); Z95.1 Presence of aortocoronary bypass graft; E78.5 Hyperlipidemia, unspecified
CPT/HCPCS: 36415; 80053; 80061; 83880; 84443; 85027

== ENCOUNTER 2023-02-08 09:17 | Outpatient (AMB) | payer MEDICARE, MEDICAID, SELFPAY ==
--- OUTSIDE RECORDS SUMMARY | 2023-02-08 09:19 | XMS_ITS | Continuity of Care Document ---
Author Name Unknown Organization [facility] Address [address] [place] [address], [address] [place] [address]- Care Team Providers Care Hearing Screen Coordinator Name Role Phone Angelo Mercado Primary Care Physician [phone] Encounter [facility] Date(s): 09/07/20 - 10/07/20 [facility] [address], [address] [place] [address]- Allergies, Adverse Reactions, Alerts Substance Reaction Severity Status clindamycin swelling body Active amoxicillin Swelling of throat Active penicillins ear, face, throat sw elling rash Active sulfonamides body swelling rash Active Zithromax Bloody stool Diarrhea Active Levaquin SPARKS - Headache Active Erythromycin and Other Macro lides Causing Adverse Effects in Therapeutic Use Diarrhea sweeling rash Active Other Food Allergy raisins, turnip, peanut butter Active Doxycyline hyclate 100mg capsule vomitin g, incontinence seizures rash sweeling Active Medications Aleve = 220 mg, By Mouth, 0 Refills, Maintenance, 07/19/19 8:37:00 EST Start Date: 07/19/19 Status: Ordered boric acid vaginal suppository Vaginally, Daily, 0 Refills, Maintenance, 08/27/20 15:47:00 EDT, Partial fill upon patient request if the prescription is for a schedule II opioid drug. Start Date: 08/27/20 Status: Ordered Claritin 5 mg oral tablet, chewable 1 tablet = 5 mg, Daily, 0 Refills, Maintenance, 07/19/19 8:37:00 EST Start Date: 07/19/19 Status: Ordered Colace sodium 100 mg oral capsule 100 mg, 1, capsule, By Mouth, 2 times a day, PRN, # 20 capsule, Refills 0, Tot. Refills 0, Maintenance, for constipation, 09/03/20 16:40:00 EDT, Route to Pharmacy Electronically, [facility], Partial fill upon patient request if the presc... Start Date: 09/03/20 Status: Ordered Diflucan 150 mg oral tablet 1 tablet = 150 mg, By Mouth, Once, May repeat in 48 hours if needed, # 2 tablet, 0 Refills, Soft Stop, 09/21/20 8:41:00 EDT, Tablet, [facility], Partial fill upon patient request if the prescription is for a schedule II opioid drug., 154.... Start Date: 09/21/20 Status: Ordered Flonase Daily, 0 Refills, Maintenance, 07/19/19 8:37:00 EST Start Date: 07/19/19 Status: Ordered gabapentin 100 mg oral capsule 100 mg, 1, capsule, By Mouth, Daily at bedtime, # 30 capsule, Refills 3, Tot. Refills 3, Maintenance, 09/21/20 8:41:00 EDT, Route to Pharmacy Electronically, [facility], Partial fillupon patient request if the prescription is for a sched... Start Date: 09/21/20 Status: Ordered Xopenex Neb, 3 times a day, 0 Refills, Maintenance, 07/19/19 8:37:00 EST Start Date: 07/19/19 Status: Ordered Problem List Condition Effective Dates Status Health Status Inform ant Asthma(Confirmed) Active Carpal tunnel syndrome of le ft wrist(Confirmed) Active Bartholin cyst(Confirmed) Active Depression(Confirmed) Active IBS (irritable bowel syndrome)(Confirmed) Active Nephrolithiasis(Confirmed) Active Low back pain(Confirmed) Active Migraine with aura and witho ut status migrainosus, not intractable(Confirmed) Active Obstructive sleep apnea(Confirmed) Active Overactive bladder(Confirmed) Active Pain in female genitalia on intercourse(Confirmed) Active Paresthesia of upper extremity(Confirmed) Active Venous insufficiency (chroni c) (peripheral)(Confirmed) Active Moderate episode of recurren t major depressive disorder(Confirmed) Active Borderline high cholesterol(Confirmed) Active Sinusitis(Confirmed) Active Current smoker(Confirmed) Active Tobacco abuse(Confirmed) Active Vitamin D deficiency(Confirmed) Active Social History Social History Type Response Smoking Status 5-9 cigarettes (betw een 1/4 to 1/2 pack)/day in last 30 days entered on: 07/19/19 Sex
--- OUTSIDE RECORDS SUMMARY | 2023-02-08 09:19 | XMS_ITS | Continuity of Care Document ---
Author Name Unknown Organization [facility] ter Address [address] [place] [address]- Care Team Providers Care Client Coordinator Name Role Phone Angelo Mercado Primary Care Physician Encounter [facility] Date(s): 09/05/20 - 09/05/[address] [address]- Encounter Diagnosis Pelvic pain(Final) - 09/05/20 Discharge Disposition: A-D/C Home Attending Physician: Roxana Burgos MD Admitting Physician: Roxana Burgos MD Referring Physician: Not on Staff, Referring MD Allergies, Adverse Reactions, Alerts Substance Reaction Severity [...] 09/03/20 16:40:00 EDT, Route to Pharmacy Electronically, [facility], Partial fill upon patient request if the presc... Start Date: 09/03/20 Status: Ordered Flonase Daily, 0 Refills, Maintenance, 07/19/19 8:37:00 EST Start Date: 07/19/19 Status: Ordered ibuprofen 600 mg oral tablet 600 mg, 1, tablet, By Mouth, Every 6 hours, # 30 tablet, Refills 0, Tot. Refills 0, Acute 10/03/20 0:00:00 EDT, 09/03/20 16:40:00 EDT, Route to Pharmacy Electronically, [facility], Partial fill upon patient request if the prescription is... Start Date: 09/03/20 Stop Date: 10/03/20 Status: Ordered MiraLax oral powder for reconstitution = 17 Gm, By Mouth, Daily, dissolve in water before taking, # 255 Gm, 0 Refills, Acute 10/03/20 0:00:00 EDT, 09/03/20 16:40:00 EDT, REC Powder, [facility], Partial fill upon patient request if the prescription is for a schedule II opioid... Start Date: 09/03/20 Stop Date: 10/03/20 Status: Ordered oxyCODONE 5 mg oral tablet 5 mg, 1, tablet, By Mouth, Every 6 hours, PRN, # 10 tablet, Refills 0, Tot. Refills 0, Acute 09/08/20 0:00:00 EDT, as needed for pain, 09/03/20 16:40:00 EDT, Route to Pharmacy Electronically, [facility], Partial fill upon patient request... Start Date: 09/03/20 Stop Date: 09/08/20 Status: Ordered Tylenol 325 mg oral tablet 650 mg, 2, tablet, By Mouth, Every 4 hours, PRN, # 120 tablet, Refills 0, Tot. Refills 0, Acute 10/03/20 0:00:00 EDT, for pain, 09/03/20 16:40:00 EDT, Route to Pharmacy Electronically, [facility], Partial fill upon patient request if the... 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) Active Depression(Confirmed) Active IBS (irritable bowel syndrome)(Confirmed) [...] Tobacco abuse(Confirmed) Active Vitamin D deficiency(Confirmed) Active Vital Signs Most recent to oldest [Reference Range]: 1 2 3 Oxygen Saturation [94-100 %] 97 % (09/05/20 7:32 PM) 95 % (09/05/20 6:21 PM) 97 % (09/05/20 5:09 PM) Pulse Rate [55-90 bpm] 70 bpm (09/05/20 7:32 PM) 66 bpm (09/05/20 6:21 PM) 75 bpm (09/05/20 5:09 PM) Blood Pressure [90-138/55-84 mm Hg] 137/88mm Hg (09/05/20 7:32 PM) 109/59mm Hg (09/05/20 6:21 PM) 125/89mm Hg (09/05/20 5:09 PM) Respiratory Rate [16-30 br/min] 15 br/min *L* (09/05/20 7:32 PM) 16 br/min (09/05/20 6:21 PM) 18 br/min (09/05/20 5:09 PM) Temperature [96.8-100.4 DegF] 98.5 DegF (09/05/20 11:44 AM) Mode of Delivery (Oxygen) Room air (09/05/20 7:32 PM) Room air (09/05/20 6:21 PM) Room air (09/05/20 5:09 PM) Blood pressure sites Arm, left (09/05/20 7:32 PM) Arm, left (09/05/20 6:21 PM) Arm, left (09/05/20 5:09 PM) Temperature Route Oral (09/05/20 11:44 AM) Social History Social History Type Response Smoking Status 5-9 cigarettes (betw een 1/4 to 1/2 pack)/day in last 30 days entered on: 07/19/19 Sex
--- OUTSIDE RECORDS SUMMARY | 2023-02-08 09:19 | XMS_ITS | Continuity of Care Document ---
Author Name Unknown Organization [facility] Cristin [facility] Address [address], [address] [place] [address]- Care Team Providers Care Weighter Name Role Phone Angelo Mercado Primary Care Physician [phone] Encounter [facility] Date(s): 01/28/21 - 02/27/21 [facility] [address] [place], [place] [address] Attending Physician: James Purdy Admitting Physician: AdmtrJames Referring Physician: [id number] Allergies, Adverse Reactions, Alerts Substance Reaction Severity Status clindamycin swelling body Active amoxicillin Swelling of throat Active sulfonamides body swelling rash Active Zithromax Bloody stool Diarrhea Active Erythromycin and Other Macro lides Causing Adverse Effects in Therapeutic Use Diarrhea sweeling rash Active Doxycyline hyclate 100mg capsule vomitin g, incontinence seizures rash sweeling Active penicillins ear, face, throat sw elling rash Active Levaquin SPARKS - Headache Active Other Food Allergy raisins, turnip, peanut butter Active Medications Aleve = 220 mg, By [...] 09/03/20 16:40:00 EDT, Route to Pharmacy Electronically, [facility], Partial fill upon patient [...] drug., 154.... Start Date: 09/21/20 Status: Ordered Estrace Vaginal Cream 0.1 mg/g See Instructions, 1 Gm Vaginally nightly for 2 weeks, then twice per week, # 127.5 Gm, 3 Refills, Maintenance, 11/06/20 13:33:00 EDT, [facility], Partial fill upon patient request if the prescription is for a schedule II opioid... Start Date: 11/06/20 Status: Ordered Flonase Daily, 0 Refills, Maintenance, 07/19/19 8:37:00 EST Start Date: 07/19/19 Status: Ordered gabapentin 100 mg oral capsule 100 mg, 1, capsule, By Mouth, Daily at bedtime, # 30 capsule, Refills 3, Tot. Refills 3, Maintenance, 09/21/20 8:41:00 EDT, Route to Pharmacy Electronically, [facility], Partial fillupon patient request if the prescription is for a sched... Start Date: 09/21/20 Status: Ordered MetroGel 1% topical gel 1 application, Topically, Daily, # 45 Gm, 0 Refills, Maintenance, 11/09/20 13:16:00 EDT, Gel, [facility], Partial fill upon patient request if the prescription is for a schedule II opioid drug., 1 application Topically Daily,x7 days, 154.... Start Date: 11/09/20 Stop Date: 11/16/20 Status: Ordered PredniSONE By Mouth, Daily, 0 Refills, Maintenance, 11/06/20 13:23:00 EDT, Partial fill upon patient request if the prescription is for a schedule II opioid drug. Start Date: 11/06/20 Status: Ordered Tramadol By Mouth, 0 Refills, Maintenance, 11/06/20 13:23:00 EDT, Partial fill upon patient request if the prescription is for a schedule II opioid drug. Start Date: 11/06/20 Status: Ordered Xopenex Neb, 3 times a day, 0 Refills, Maintenance, 07/19/19 8:37:00 EST Start Date: 07/19/19 Status: Ordered Problem List Condition Effective Dates Status Health Status Inform ant Asthma(Confirmed) Active Carpal tunnel syndrome of le ft wrist(Confirmed) Active Bartholin cyst(Confirmed) Active Depression(Confirmed) Active IBS (irritable bowel syndrome)(Confirmed) Active Nephrolithiasis(Confirmed) Active Right knee pain(Confirmed) Active Low back pain(Confirmed) Active Migraine with aura and witho ut status migrainosus, not intractable(Confirmed) Active Obstructive sleep apnea(Confirmed) Active Overactive bladder(Confirmed) Active Dyspareunia in female(Confirmed) Active Paresthesia of upper extremity(Confirmed) Active Venous [...]
--- OUTSIDE RECORDS SUMMARY | 2023-02-08 09:19 | XMS_ITS | Continuity of Care Document ---
Author Name Unknown Organization [facility] Cristin [facility] Address [address], [address] [place] [address]- Care Team Providers Care Registered Physical Therapist Name Role Phone Angelo Mercado Primary Care Physician Encounter [facility] Date(s): 12/18/20 - 01/17/21 [facility] [address], [address] [place] [address]- Allergies, Adverse Reactions, Alerts Substance Reaction Severity [...] 09/03/20 16:40:00 EDT, Route to Pharmacy Electronically, [facility], Partial fill upon patient [...] Gm, 3 Refills, Maintenance, 11/06/20 13:33:00 EDT, [facility], Partial fill upon patient request [...] EDT, Route to Pharmacy Electronically, [facility], Partial fillupon patient request if [...]
--- OUTSIDE RECORDS SUMMARY | 2023-02-08 09:19 | XMS_ITS | Continuity of Care Document ---
Author Name Unknown Organization [facility] Cristin Gutierrez [employer] Address [address] [facility], [address] [place] [address]- Care Team Providers Care Java Golden Gate Developer Name Role Phone Angelo Mercado Primary Care Physician [place] [facility] [place]20 [facility] Cristin [employer] [facility] [address] [facility] [address] [facility], [address] [place] [address]- Allergies, Adverse Reactions, Alerts Substance Reaction Severity [...] 09/03/20 16:40:00 EDT, Route to Pharmacy Electronically, [facility], Partial fill upon patient request [...] Gm, 3 Refills, Maintenance, 11/06/20 13:33:00 EDT, [facility], Partial fill upon patient [...] EDT, Route to Pharmacy Electronically, [facility], Partial fillupon patient request if [...] Active Current smoker(Confirmed) Active Tobacco abuse(Confirmed) Active Vaginal odor(Confirmed) Active Vitamin D deficiency(Confirmed) Active Social History Social History Type Response Smoking Status 5-9 cigarettes (betw een 1/4 to 1/2 pack)/day in last 30 days entered on: 07/19/19 Sex
--- OUTSIDE RECORDS SUMMARY | 2023-02-08 09:19 | XMS_ITS | Continuity of Care Document ---
Author Name Unknown Organization [facility] Cali bethany Address [address] [place] [address]- Care Team Providers Care Ticket Seller Name Role Phone Angelo Mercado Primary Care Physician [phone] Encounter [facility] Date(s): 11/04/22 - 12/04/22 [facility] Card[facility] [address] [place] [id number] Allergies, Adverse Reactions, Alerts Substance Reaction Severity Status clindamycin swelling body Active amoxicillin Swelling of throat Active penicillins ear, face, throat sw elling rash Active sulfonamides body swelling rash Active Zithromax Bloody stool Diarrhea Active Levaquin SPARKS - Headache Active Peanuts Active Erythromycin and Other Macro lides Causing Adverse Effects in Therapeutic Use Diarrhea sweeling rash Active Other Food Allergy raisins, turnip, peanut butter Active Doxycyline hyclate 100mg capsule vomitin g, incontinence seizures rash sweeling Active ceFAZolin 1 Active 1lip and tongue sweling Medications acetaminophen 325 mg oral tablet 975 mg, By Mouth, 4 times a day, PRN, Refills 0, Maintenance, Pain , Mild, 10/13/22 11:52:00 EDT, Partial fill upon patient request if the prescription is for a schedule II opioid drug. Start Date: 10/13/22 Status: Ordered Aspirin Tablet 81 mg, By Mouth, Daily, Refills 0, Maintenance, 10/13/22 11:52:00 EDT, Partial fill upon patient request if the prescription is for a schedule II opioid drug. Start Date: 10/13/22 Status: Ordered betamethasone topical dipropionate, augmented 0.05% ointment 45 Gm, 0 Refill(s), APPLY A THIN COAT EXTERNALLY AT BEDTIME NEEDED FOR ALLERGIC REACTION FOR 2 WEEKS, THEN EVERY OTHER DAY FOR 2 WEEKS AND THEN TWICE A WEEK, 0 Refills, 11/12/22 18:24:00 EDT, Partial fill upon patient request if the prescription is... Start Date: 11/12/22 Status: Ordered clopidogrel 75 mg oral tablet 75 mg, 1, tablet, By Mouth, Daily, # 30 tablet, Refills 0, Tot. Refills 0, Maintenance, 11/12/22 11:53:00 EDT, Route to Pharmacy Electronically, [id number], Partial fill upon patient request if the prescription is for a schedule II opioi... Start Date: 11/12/22 Status: Ordered Creon 36,000 units oral delayed release capsule TAKE ONE CAPSULE BY MOUTH FOUR TIMES A DAY. ADMINISTER WITH MEALS/SNACKS Start Date: 09/29/22 Status: Ordered desonide 0.05% topical ointment 60 Gm, 0 Refill(s), APPLY A THIN COAT TO AREA EXTERNALLY TWICE A WEEK AT BEDTIME, 0 Refills, 11/12/22 18:24:00 EDT, Partial fill upon patient request if the prescription is for a schedule II opioid drug. Start Date: 11/12/22 Status: Ordered lidocaine-prilocaine 2.5%-2.5% topical cream See Instructions, 1 application Topically to skin surrounding sternal wound 15 minutes prior to application of wound vac dressing. Please use 15 minutes prior to every dressing change., # 30 Gm, 0 Refills, Soft Stop, 11/22/22 10:44:00 EDT, Cream, [facility]... Start Date: 11/22/22 Status: Ordered Lipitor 80 mg oral tablet 1 tablet = 80 mg, By Mouth, Daily at bedtime, # 30 tablet, 0 Refills, Maintenance, 11/12/22 11:52:00 EDT, Tablet, [facility], Partial fill upon patient request if the prescription is for a schedule II opioid drug., 154.94, cm, 10/19/22 1... Start Date: 11/12/22 Status: Ordered Probiotic + Colostrum By Mouth, Daily, 0 Refills, Maintenance, 09/29/22 22:15:00 EDT, Partial fill upon patient request if the prescription is for a schedule II opioid drug. Start Date: 09/29/22 Status: Ordered Remove Patch 1 each, Topically, Daily, 0 Refills, Maintenance, Patch Start Date: 10/13/22 Status: Ordered Vitamin B6 100 mg oral tablet 90 each, 0 Refill(s), TAKE ONE TABLET BY MOUTH EVERY DAY, 0 Refills, 11/12/22 18:25:00 EDT, Partialfill upon patient request if the prescription is for a schedule II opioid drug. Start Date: 11/12/22 Status: Ordered Vitamin D3 2000 intl units oral capsule 1 capsule = 50 mcg, By Mouth, Daily, # 60 capsule, 0 Refills, Maintenance, 11/24/22 9:01:00 EDT, Capsule, Partial fill upon patient request if the prescription is for a schedule II opioid drug. Start Date: 11/24/22 Status: Ordered Problem List Condition Confirmation Course Effective Dates Status H ealth Status Informant Asthma Confirmed Active Carpal tunnel syndrome of left wrist Confirmed Active COVID-19 1 Confirmed 03/11/22 Active Bartholin cyst Confirmed Active Depression Confirmed Active IBS (irritable bowel syndrome) Confirmed Active Nephrolithiasis Confirmed Active Right knee pain Confirmed Active Sternal wound infection Confirmed Active Low back pain Confirmed Active Migraine with aura and without status migrainosus, not intractable Confirmed Active Obstructive sleep apnea Confirmed Active Overactive bladder Confirmed Active Paresthesia of upper extremity Confirmed Active Venous insufficiency (chronic) (peripheral) Confirmed Active Moderate episode of recurrent major depressive disorder Confirmed Active Borderline high cholesterol Confirmed Active Severe obesity (BMI 35.0-39.9) with comorbidity Confirmed Active Sinusitis Confirmed Active Current smoker Confirmed Active Tobacco abuse Confirmed Active Vitamin D deficiency Confirmed Active 1Problem added by Discern Expert Social History Social History Type Response Smoking Status Former smoker, quit more than 30 days ago entered on: 11/24/22 Sex Patient Care team information Care Team Personnel Name: Carissa Morales LPN Position: S RN Member Role: Primary Care Nurse Name: Merlin Horn RN Position: S RN Member Role: Primary Care Nurse Name: Raúl Kirk RN Position: S RN Member Role: Primary Care Nurse Name: Angelo Mercado Position: Reference Physician Member Role: PCP Address: Address: [address] [place], [place] [address] Name: Teofilo Wilks RN Position: S RN Member Role: Primary Care Nurse Name: Stefania Mariee LPN Position: S RN Member Role: Primary Care Nurse Name: Laura Grover RN Position: S RN Member Role: Primary Care Nurse Name: Roxana Mackey Position: S RN Member Role: Primary Care Nurse Name: Nick Carvajal MD Position: [facility] Renal MD Member Role: Lifetime Consulting Physician Address: Address: [address] [place] [address] [address] [facility] [place] [address]- Name: Tiffany Mahajan RN Position: S RN Member Role: Primary Care Nurse Care Team Related Persons Name: CASIMIRO DAVIS Address: home [address] [place] [address] Name: NO HUMPHRIES Address: home
--- OUTSIDE RECORDS SUMMARY | 2023-02-08 09:19 | XMS_ITS | Continuity of Care Document ---
Author Name Unknown Organization [facility] Address [address] [place] [address] [place] [address]- Care Team Providers Care Working Manager Name Role Phone Angelo Mercado Primary Care Physician [phone] [place] [facility] [place] 11/11/22 - 12/16/22 [facility] [address] [place] [address]- Attending Physician: Vipul NOYOLA, Юлия Astorga Referring Physician: Angelo Mercado Allergies, Adverse Reactions, Alerts Substance Reaction Severity Status clindamycin swelling body Active amoxicillin Swelling of throat Active Peanuts Active ceFAZolin 1 Active penicillins ear, face, throat sw elling rash Active sulfonamides body swelling rash Active Doxycyline hyclate 100mg capsule vomitin g, incontinence seizures rash sweeling Active Zithromax Bloody stool Diarrhea Active Levaquin SPARKS - Headache Active Erythromycin and Other Macro lides Causing Adverse Effects in Therapeutic Use Diarrhea sweeling rash Active Other Food Allergy raisins, turnip, peanut butter Active 1lip and tongue sweling Medications acetaminophen [...] opioid drug. Start Date: 10/13/22 Status: Ordered clopidogrel 75 mg oral tablet 75 mg, 1, tablet, By Mouth, Daily, # 30 tablet, Refills 11, Tot. Refills 11, Maintenance, 12/13/22 15:59:00 EDT, Route to Pharmacy Electronically, [facility], Partial fill upon patient request if the prescription is for a schedule II opi... Start Date: 12/13/22 Stop Date: 12/08/23 Status: Ordered Creon 36,000 units oral delayed release capsule TAKE ONE CAPSULE BY MOUTH FOUR TIMES A DAY. ADMINISTER WITH MEALS/SNACKS Start Date: 09/29/22 Status: Ordered isosorbide mononitrate 30 mg oral tablet, extended release 30 mg, 1, tablet, By Mouth, Daily in AM, # 30 tablet, Refills 0, Tot. Refills 0, Maintenance, 12/10/22 11:59:00 EDT, Route to Pharmacy Electronically, [facility], Partial fill upon patient request if the prescription is for a schedule II... Start Date: 12/10/22 Stop Date: 01/09/23 Status: Ordered Lipitor 80 mg oral tablet 1 tablet = 80 mg, By Mouth, Daily at bedtime, # 30 tablet, 0 Refills, Maintenance, 11/12/22 11:52:00 EDT, Tablet, [facility], Partial fill upon patient request if the prescription is for a schedule II opioid drug., 154.94, cm, 10/19/22 1... Start Date: 11/12/22 Status: Ordered metoprolol 50 mg oral tablet, extended release See Instructions, 1 tablet By Mouth Daily please hold for bp <100 and hr < 55, # 30 each, Refills 0, Tot. Refills 0, Maintenance, 12/10/22 11:59:00 EDT, Instructions Replace Required Details, Route to Pharmacy Electronically, [facility]... Start Date: 12/10/22 Status: Ordered MiraLax oral powder for reconstitution = 17 Gm, By Mouth, Daily, for 14 days, dissolve in water before taking, # 238 Gm, 0 Refills, Acute 12/24/22 11:57:00 EDT, 12/10/22 11:57:00 EDT, REC Powder, [facility], Partial fillupon patient request if the prescription is for a sched... Start Date: 12/10/22 Stop Date: 12/24/22 Status: Ordered Vitamin B6 100 mg oral [...] Physician Member Role: PCP Address: Address: [address] [place] [address]- Name: Teofilo Wilks RN Position: S RN Member Role: Primary Care Nurse Name: Stefania Mariee LPN Position: S RN Member Role: Primary Care Nurse Name: Laura Grover RN Position: S RN Member Role: Primary Care Nurse Name: Roxana Mackey Position: S RN Member Role: Primary Care Nurse Name: Alena LEA, Nick Position: [facility] Renal MD Member Role: Lifetime Consulting Physician Address: Address: [address] [place] [address] [address] [facility] [place] [address]- Name: Tiffany Mahajan RN Position: S RN Member Role: Primary Care Nurse Care Team Related Persons Name: CASIMIRO DAVIS Address: home [address] [place] [place] [address] Name: NO HUMPHRIES Address: home
--- OUTSIDE RECORDS SUMMARY | 2023-02-08 09:19 | XMS_ITS | Continuity of Care Document ---
Author Name Unknown Organization [facility] Cristin Gutierrez [employer] Address [address] [place] [address], [address] [place] [address]- Care Team Providers Care Mucker Cofferdam Name Role Phone Angelo Mercado Primary Care Physician En[place] [facility] [place] 09/09/20 - 10/09/20 [facility] Cristinpaula [employer] [address] [facility], [address] [place] [address]- Allergies, Adverse Reactions, Alerts Substance Reaction Severity [...] 09/03/20 16:40:00 EDT, Route to Pharmacy Electronically, [facility], Partial fill upon [...]
--- OUTSIDE RECORDS SUMMARY | 2023-02-08 09:19 | XMS_ITS | Continuity of Care Document ---
Author Name Unknown Organization [facility] Address [address] [place] [address]- Care Team Providers Care Eyelet Punch Operator Name Role Phone Angelo Mercado Primary Care Physician [place] [facility] [place] 08/03/20 - 09/06/[address] [address] Attending Physician: Antonio Rios NP Admitting Physician: Antonio Rios NP Referring Physician: Antonio Rios NP Allergies, Adverse Reactions, Alerts Substance Reaction Severity [...] 09/03/20 16:40:00 EDT, Route to Pharmacy Electronically, [facility], Partial fill upon patient request if the presc... Start Date: 09/03/20 Status: Ordered Flonase Daily, 0 Refills, Maintenance, 07/19/19 8:37:00 EST Start Date: 07/19/19 Status: Ordered ibuprofen 600 mg oral tablet 600 mg, 1, tablet, By Mouth, Every 6 hours, # 30 tablet, Refills 0, Tot. Refills 0, Acute 10/03/20 0:00:00 EDT, 09/03/20 16:40:00 EDT, [facility] Pharmacy Electronically, [facility], Partial fill upon patient request if the prescription is... Start Date: 09/03/20 Stop Date: 10/03/20 Status: Ordered MiraLax oral powder for reconstitution = 17 Gm, By Mouth, Daily, dissolve in water before taking, # 255 Gm, 0 Refills, Acute 10/03/20 0:00:00 EDT, 09/03/20 16:40:00 EDT, REC Powder, [facility], Partial fill upon patient request if the prescription is for a schedule II opioid... Start Date: 09/03/20 Stop Date: 10/03/20 Status: Ordered oxyCODONE 5 mg oral tablet 5 mg, 1, tablet, By Mouth, Every 6 hours, PRN, # 10 tablet, Refills 0, Tot. Refills 0, Acute 09/08/20 0:00:00 EDT, as needed for pain, 09/03/20 16:40:00 EDT, Route to Pharmacy Electronically, [facility], Partial fill upon patient request... Start Date: 09/03/20 Stop Date: 09/08/20 Status: Ordered Tylenol 325 mg oral tablet 650 mg, 2, tablet, By Mouth, Every 4 hours, PRN, # 120 tablet, Refills 0, Tot. Refills 0, Acute 10/03/20 0:00:00 EDT, for pain, 09/03/20 16:40:00 EDT, Route to Pharmacy Electronically, [facility], Partial fill upon patient request if [...]
--- OUTSIDE RECORDS SUMMARY | 2023-02-08 09:20 | XMS_ITS | Continuity of Care Document ---
Author Name Unknown Organization [facility] Address [address] [facility], [address], [address] [place] [address]- Care Team Providers Care Motel Maid Name Role Phone Angelo Mercado Primary Care Physician [phone] Encounter [facility] Date(s): 08/08/20 - 12/06/20 [facility] [address], [address], [address] [place] [address] Attending Physician: Karly Jarquin MD Admitting Physician: Karly Jarquin MD Allergies, Adverse Reactions, Alerts Substance Reaction [...] 09/03/20 16:40:00 EDT, Route to Pharmacy Electronically, [facility], Partial fill upon patient [...] Gm, 3 Refills, Maintenance, 11/06/20 13:33:00 EDT, [facility], Partial fill upon patient request if [...] EDT, Route to Pharmacy Electronically, [facility], Partial fillupon patient request if [...]
--- OUTSIDE RECORDS SUMMARY | 2023-02-08 09:20 | XMS_ITS | Continuity of Care Document ---
Author Name Unknown Organization [facility] ter Address [address] [place] [id number]- Care Team Providers Care International Account Representative Name Role Phone Angelo Mercado Primary Care Physician [phone] Encounter [facility] Date(s): 09/29/22 - 10/13/[address] [address]- Encounter Diagnosis Non-ST elevation SD (NSTEMI)(Final) - 10/13/22 Discharge Disposition: A-D/C Home Attending Physician: Buster Ptarick MD Admitting Physician: Saleem Presley MD Referring Physician: Not on Staff, Referring MD Allergies, Adverse Reactions, Alerts Substance Reaction Severity Status clindamycin swelling body Active amoxicillin Swelling of throat Active sulfonamides body swelling rash Active Levaquin RUIZ - Headache Active Peanuts Active Doxycyline hyclate 100mg capsule vomitin g, incontinence seizures rash sweeling Active ceFAZolin 1 Active penicillins ear, face, throat sw elling rash Active Zithromax Bloody stool Diarrhea Active [...] opioid drug. Start Date: 10/13/22 Status: Ordered Advair HFA 115 mcg / 21 mcg 2 puffs, Inhalation, 2 times a day, # 180 each, 0 Refills, Maintenance, 09/29/22 22:14:00 EDT, Aerosol, Partial fill upon patient request if the prescription is for a schedule II opioid drug. Start Date: 09/29/22 Status: Ordered amiodarone 200 mg oral tablet 200 mg, 1, tablet, By Mouth, 2 times a day, then stop, # 60 tablet, Refills 0, Tot. Refills 0, Maintenance, 10/13/22 11:52:00 EDT, Route to Pharmacy Electronically, [facility], Partial fill upon patient request if the prescription is for... Start Date: 10/13/22 Stop Date: 11/12/22 Status: Ordered Aspirin Tablet 81 mg, By Mouth, Daily, Refills 0, Maintenance, 10/13/22 11:52:00 EDT, Partial fill upon patient request if the prescription is for a schedule II opioid drug. Start Date: 10/13/22 Status: Ordered baclofen 5 mg oral tablet 1 tablet = 5 mg, By Mouth, 3 times a day, PRN Pain , Moderate, # 21 tablet, 0 Refills, Maintenance,10/13/22 11:53:00 EDT, Tablet, [facility], Partial fill upon patient request if the prescription is for a schedule II opioid drug., 154.9... Start Date: 10/13/22 Stop Date: 10/20/22 Status: Ordered BuPROPion (Eqv-Wellbutrin SR) 150 mg/12 hours oral tablet, extended release 0 Refills, Maintenance, 09/29/22 22:14:00 EDT, Partial fill upon patient request if the prescription is for a schedule II opioid drug. Start Date: 09/29/22 Status: Ordered clopidogrel 75 mg oral tablet 75 mg, 1, tablet, By Mouth, Daily, # 30 tablet, Refills 0, Tot. Refills 0, Maintenance, 10/13/22 11:53:00 EDT, Route to Pharmacy Electronically, [facility], Partial fill upon patient request if the prescription is for a schedule II opioi... Start Date: 10/13/22 Stop Date: 11/12/22 Status: Ordered Creon 36,000 units oral delayed release capsule TAKE ONE CAPSULE BY MOUTH FOUR TIMES A DAY. ADMINISTER WITH MEALS/SNACKS Start Date: 09/29/22 Status: Ordered docusate-senna 50 mg-8.6 mg oral capsule 2 capsule, By Mouth, Daily, for 30 days, stop if bowel movement x2/day, # 60 capsule, 0 Refills, Acute 11/12/22 11:54:00 EDT, 10/13/22 11:54:00 EDT, Capsule, [facility], Partial fill upon patient request if the prescription is for a sche... Start Date: 10/13/22 Stop Date: 11/12/22 Status: Ordered Lipitor 80 mg oral tablet 1 tablet = 80 mg, By Mouth, Daily at bedtime, # 30 tablet, 0 Refills, Maintenance, 10/13/22 11:52:00 EDT, Tablet, [facility], Partial fill upon patient request if the prescription is for a schedule II opioid drug., 154.94, cm, 10/13/22 1... Start Date: 10/13/22 Stop Date: 11/12/22 Status: Ordered loratadine 10 mg oral tablet 10 mg, 1, tablet, By Mouth, Daily, # 30 tablet, Refills 0, Maintenance, 09/29/22 22:14:00 EDT, Partial fill upon patient request if the prescription is for a schedule II opioid drug. Start Date: 09/29/22 Status: Ordered midodrine 5 mg oral tablet 10 mg, 2, tablet, By Mouth, 3 times a day, # 180 tablet, Refills 0, Tot. Refills 0, Maintenance, 10/13/22 11:57:00 EDT, Route to Pharmacy Electronically, [facility], Partial fill upon patient request if the prescription is for a schedule... Start Date: 10/13/22 Stop Date: 11/12/22 Status: Ordered midodrine 5 mg oral tablet 10 mg, Tablet, By Mouth, 10/13/22 7:00:00 EDT Start Date: 10/13/22 Stop Date: 10/13/22 Status: Completed Multivitamin Tablet 1 tablet, By Mouth, Daily, 0 Refills, Maintenance, 10/13/22 11:55:00 EDT, Tablet, Partial fill uponpatient request if the prescription is for a schedule II opioid drug. Start Date: 10/13/22 Status: Ordered nicotine 21 mg/24 hr transdermal film, extended release 1 patch, Topically, Daily, for 30 days, # 30 patch, 0 Refills, Acute 11/12/22 11:55:00 EDT, 10/13/22 11:55:00 EDT, Patch, [facility], Partial fill upon patient request if the prescription is for a schedule II opioid drug., 1 patch Topica... Start Date: 10/13/22 Stop Date: 11/12/22 Status: Ordered nystatin 658062 u/ml oral suspension 5 mL = 500,000 units, Swish and Spit, 4 times a day, for 7 days, # 140 mL, 0 Refills, Acute 10/20/22 11:58:00 EDT, 10/13/22 11:58:00 EDT, Suspension, [facility], Partial fill upon patient request if the prescription is for a schedule II... Start Date: 10/13/22 Stop Date: 10/20/22 Status: Ordered Probiotic + Colostrum By Mouth, Daily, 0 Refills, Maintenance, 09/29/22 22:15:00 EDT, Partial fill upon patient request if the prescription is for a schedule II opioid drug. Start Date: 09/29/22 Status: Ordered Remove Patch 1 each, Topically, Daily, 0 Refills, Maintenance, Patch Start Date: 10/13/22 Status: Ordered Vashe Topical Solution 475 mL, Topically, Every 12 hours, 0 Refills, Maintenance, Solution Start Date: 10/13/22 Status: Ordered Vashe Topical Solution 475 mL, Topically, Every 6 hours, PRN Other, 0 Refills, Maintenance, Solution Start Date: 10/13/22 Status: Ordered Vitamin B6 Daily, 0 Refills, Maintenance, 09/29/22 22:15:00 EDT, Partial fill upon patient request if the prescription is for a schedule II opioid drug. Start Date: 09/29/22 Status: Ordered Problem List Condition Confirmation Course Effective Dates Status H ealth Status Informant Asthma Confirmed Active Carpal tunnel syndrome of left wrist Confirmed Active COVID-19 1 Confirmed 03/11/22 Active Bartholin cyst Confirmed Active Depression Confirmed Active IBS (irritable bowel syndrome) Confirmed Active Nephrolithiasis Confirmed Active Right knee pain Confirmed Active Low back pain Confirmed Active [...] Confirmed Active 1Problem added by Discern Expert Results Radiology Reports * Exam Date Time Procedure Performing Provider Status 10/11/22 1:59 PM US Doppler Ext Lower Venous Right Sanjana Sanchez; Auth (Verified) Notes: (US Doppler Ext Lower Venous Right) Reason For Exam: Swelling Extremities RESULT: US Doppler Ext Lower Venous Right US Doppler Ext Lower Venous Right Reason: Swelling Extremities; Clinical Question(s): Thrombus COMPARISON: None IMAGING TECHNIQUE: Ultrasound of the veins from the groin through the calf was performed using grayscale, color, and spectral Doppler ultrasound assessing for complete compressibility and normal flowcharacteristics. FINDINGS: Common femoral vein: Patent. No thrombosis. Femoral vein: Patent. No thrombosis. Popliteal vein: Patent. No thrombosis. Gastrocnemius veins: The visualized portions are patent without evidence of thrombosis. Peroneal veins: The visualized portions are patent without evidence of thrombosis. Posterior tibial veins: The visualized portions are patent without evidence of thrombosis. Contralateral common femoral vein: Patent. No thrombosis. OTHER FINDINGS: IMPRESSION: No evidence of deep venous thrombosis. WSN: [id number] Ordering Physician: Emeka Meza Dictated By: Suresh Hall MD Dictated Date/Time: 10/11/22 2:12 pm Reviewed By: Suresh Hall MD Signed By: Suresh Hall MD Signed Date/Time: 10/11/22 2:12 pm Transcribed By: HEATHER Transcribed Date/Time: 10/11/22 2:07 pm * Exam Date Time Procedure Performing Provider Status 10/09/22 7:16 PM Chest Portable Cassi Woo; Auth (Verified) Notes: (Chest Portable) Reason For Exam: tube removal;Other: RESULT: Chest Portable Chest Portable Reason: Other:; tube removal; Clinical Question(s): Pneumothorax COMPARISON: 10/08/2022, 10/06/2022. FINDINGS: LINES AND TUBES: Interval removal of previously seen chest tubes. LUNGS AND PLEURA: Linear discoid atelectasis in the mid lungs bilaterally, unchanged. Stable hazy opacification at the lung bases, could represent atelectasis and/or small pleural effusions. No pneumothorax. HEART, MEDIASTINUM AND AISLINN: Stable. BONES AND SOFT TISSUES: No acute abnormality. Status post median sternotomy. IMPRESSION: No pneumothorax. Lungs appear unchanged. WSN: [id number] Ordering Physician: Rosenda Iyer Dictated By: Hien Reyes MD Dictated Date/Time: 10/09/22 7:48 pm Reviewed By: Hien Reyes MD Signed By: Hien Reyes MD Signed Date/Time: 10/09/22 7:48 pm Transcribed By: HEATHER Transcribed Date/Time: 10/09/22 7:46 pm * Exam Date Time Procedure Performing Provider Status 10/08/22 9:51 AM Chest Portable Marcia Hidalgo; Auth ( Verified) Notes: (Chest Portable) Reason For Exam: Shortness of Breath RESULT: Chest Portable Chest Portable AP upright at 9:41 AM REASON: Shortness of Breath; Clinical Question(s): Pleural Effusion / Pleural Effusion COMPARISON: 10/06/2022 FINDINGS: LINES AND TUBES: Bilateral chest tubes remain in place. LUNGS AND PLEURA: The central pulmonary vasculature is prominent and indistinct. Hazy bibasilar opacity. Linear opacity in the left midlung, likely scarring or atelectasis. No pneumothorax. HEART, MEDIASTINUM AND AISLINN: Unchanged. BONES AND SOFT TISSUES: Status post median sternotomy. IMPRESSION: Mild pulmonary vascular congestion with hazy opacity at lung bases, likely atelectasis and/or smallpleural effusions. This appearance is not significantly changed from the prior. WSN: [id number] Ordering Physician: Mary Anne Lucero Dictated By: Merlin Bhatt MD Dictated Date/Time: 10/08/22 10:21 a Reviewed By: Merlin Bhatt MD Signed By: Merlin Bhatt MD Signed Date/Time: 10/08/22 10:21 am Transcribed By: CSNilson Transcribed Date/Time: 10/08/22 10:20 am * Exam Date Time Procedure Performing Provider Status 10/06/22 6:37 AM Chest Portable Jasmin Rosas; Auth (Verified) Notes: (Chest Portable) Reason For Exam: S/P Cardiac Surgery RESULT: Chest Portable Chest Portable AP semiupright at 6:08 AM REASON: S P Cardiac Surgery; Clinical Question(s): Other:; Cardiac Tamponade; Special Instructions:Post Op Day 1 / Other: COMPARISON: 10/05/2022 FINDINGS: LINES AND TUBES: Endotracheal tube and enteric tube has been removed. Right internal jugular central venous catheter tip projects in the SVC. Mediastinal drain and bilateral chest tubes in place. Multiple wires project over the patient. LUNGS AND PLEURA: Low lung volumes with crowding of lung markings. Unchanged patchy opacity in the left midlung. No pleural effusion. No pneumothorax. HEART, MEDIASTINUM AND AISLINN: Unchanged. BONES AND SOFT TISSUES: Status post median sternotomy. IMPRESSION: Support structures as above, otherwise no significant change. WSN: [id number] Ordering Physician: Corey Catherine Dictated By: Merlin Bhatt MD Dictated Date/Time: 10/06/22 9:01 am Reviewed By: Merlin Bhatt MD Signed By: Merlin Bhatt MD Signed Date/Time: 10/06/22 9:01 am Transcribed By: HEATHER Transcribed Date/Time: 10/06/22 9:00 am * Exam Date Time Procedure Performing Provider Status 10/05/22 10:32 PM Chest Portable Walt Morales (Verified) Notes: (Chest Portable) Reason For Exam: S/P Cardiac Surgery RESULT: Chest Portable Chest Portable REASON: S P Cardiac Surgery; Clinical Question(s): Cardiac Tamponade; Special Instructions: [facility] Admission to [facility] COMPARISON: CT chest 09/30/2022. Chest radiograph 03/11/2022. FINDINGS: LINES AND TUBES: Right IJ central venous catheter in the lower SVC. Endotracheal tube 1.5 cm from the david. Enteric tube courses normally to the stomach possibly terminating below the [id number]. Subxiphoid approach mediastinal and bilateral pleural drains. LUNGS AND PLEURA: Congested central pulmonary vasculature. Patchy opacity in the left midlung zone. No definite pleural effusion. No pneumothorax. HEART, MEDIASTINUM AND AISLINN: Expected postoperative enlargement of the cardiac mediastinal silhouette. Median sternotomy wires and fixation plates. BONES AND SOFT TISSUES: No acute abnormality. Cholecystectomy clips. IMPRESSION: Lines and tubes as outlined above. Notable for low position of endotracheal tube within 1.5 cm above the david. Patchy left midlung zone opacity, may represent atelectasis. Attention on follow-up imaging. Expected postoperative enlargement of the cardiomediastinal silhouette. I have personally reviewed the images and I agree with this report. WSN: [id number] Ordering Physician: Corey Catherine Dictated By: Obi Jones DO Dictated Date/Time: 10/05/22 11:33 p Reviewed By: Constantino Awan MD Signed By: Constantino Awan MD Signed Date/Time: 10/05/22 11:38 pm Transcribed By: HEATHER Transcribed Date/Time: 10/05/22 11:03 pm * Exam Date Time Procedure Performing Provider Status 10/02/22 5:54 PM US Doppler Ext Upper Venous Right Marko Sanchez (Verified) Notes: (US Doppler Ext Upper Venous Right) Reason For Exam: at R Radial cath site;Pain/Tenderness Extremities RESULT: US Doppler Ext Upper Venous Right US Doppler Ext Upper Venous Right Reason: Pain Tenderness Extremities; at R Radial cath site; Clinical Question(s): Thrombosis COMPARISON: None. IMAGING TECHNIQUE: Ultrasound examination of the upper extremity deep venous system was performed using grayscale, color, and spectral wave analysis including response to compression. Assessment includes the contralateral jugular and subclavian vein. FINDINGS: Internal jugular vein: Patent. No thrombosis. Subclavian vein: Patent. No thrombosis. Axillary vein: Patent. No thrombosis. Brachial vein: Patent. No thrombosis. Basilic vein: Patent. No thrombosis. Cephalic vein: Patent. No thrombosis. Contralateral internal jugular vein: Patent. No thrombosis. Contralateral subclavian vein: Patent. No thrombosis. Focused evaluation of the area of bruising in the anterior wrist demonstrates normal tissue withoutevidence of a solid or cystic lesion. There is no evidence of a fluid collection or hematoma. IMPRESSION: No evidence of venous thrombosis. WSN: [id number] Ordering Physician: Corey Bryan Dictated By: Ny Acosta MD Dictated Date/Time: 10/02/22 6:25 pm Reviewed By: Ny Acosta MD Signed By: Ny Acosta MD Signed Date/Time: 10/02/22 6:25 pm Transcribed By: HEATHER Transcribed Date/Time: 10/02/22 6:22 pm * Exam Date Time Procedure Performing Provider Status 09/30/22 10:[address] Chest W/O Contrast Aaron Givens; Auth (Verified) Notes: (CT Chest W/O Contrast) Reason For Exam: Aneurysm RESULT: CT Chest W/O Contrast CT Chest W/O Contrast INDICATION/CLINICAL QUESTION: Aneurysm; COMPARISON: None TECHNIQUE: Helical CT scan of the chest without IV contrast, formatted in 3 planes. Weight-based protocol was performed using automatic exposure control. CTDIvol Body: 7.96 mGy, DLP Body: 294 mGy*cm. FINDINGS: GLUING MACHINE ADJUSTER VIEW FINDINGS, LINES AND TUBES: None. TRACHEA AND MAIN BRONCHI: Patent without evidence of tracheal or endobronchial lesion. LUNGS AND PLEURA: Clear lungs. No effusion or pneumothorax. AORTA: Mild atherosclerotic calcification along the ascending thoracic aorta with moderate atherosclerotic calcification along the arch without evidence of underlying aneurysm. MEDIASTINUM and AISLINN: No hematoma, mass or adenopathy. Normal heart size. No pericardial effusion. No esophageal abnormalities. CHEST WALL SOFT TISSUES: Normal. DIAPHRAGM AND UPPER ABDOMEN: No acute process, postcholecystectomy changes. Stomach is debris-filled likely a recent meal. Colon is stool-filled. BONES: No acute abnormalities, no focal osseous lesions. IMPRESSION: No aneurysm. WSN: [id number] Ordering Physician: Buster Patrick Dictated By: Chai Falcon MD Dictated Date/Time: 09/30/22 11:22 p Reviewed By: Chai Falcon MD Signed By: Chai Falcon MD Signed Date/Time: 09/30/22 11:22 pm Transcribed By: HEATHER Transcribed Date/Time: 09/30/22 11:18 pm Vital Signs Most recent to oldest [Reference Range]: 1 2 3 Height 154.94 cm (10/13/22 11:23 AM) 154.94 cm (10/13/22 7:28 AM) 154.94 cm (10/13/22 5:15 AM) Weight 86.3 kg (10/13/22 8:28 AM) 88.6 kg (10/11/22 3:54 PM) 88.6 kg (10/11/22 7:00 AM) Oxygen Saturation [94-100 %] 96 % (10/13/22 11:23 AM) 93 % *L* (10/13/22 7:28 AM) 95 % (10/13/22 5:15 AM) Pulse Rate [55-90 bpm] 87 bpm (10/13/22:23 AM) 85 bpm (10/13/22 7:28 AM) 91 bpm *H* (10/13/22 6:10 AM) Body Mass Index [18.5-24.99 kg/m2] 36.57 kg/m2 *>HHI* (10/05/22 12:49 PM) 36.57 kg/m2 *>HHI* (10/05/22 2:32 AM) 37.91 kg/m2 *>HHI* (10/03/22 2:24 AM) Blood Pressure [90-138/55-84 mm Hg] 104/51mm Hg (10/13/22:23 AM) 97/56mm Hg (10/13/22 7:28 AM) 108/64mm Hg (10/13/22 6:10 AM) Respiratory Rate [16-30 br/min] 18 br/min (10/13/22:23 AM) 18 br/min (10/13/22 7:28 AM) 14 br/min *L* (10/13/22 5:15 AM) Temperature [96.8-100.4 DegF] 98.1 DegF (10/13/22 11:23 AM) 98.5 DegF (10/13/22 7:28 AM) 99.0 DegF (10/13/22 5:15 AM) Liters per Minute 1 L/min (10/12/22 4:31 AM) 1 L/min (10/11/22 11:17 PM) 1 L/min (10/11/22 7:52 PM) Mode of Delivery (Oxygen) Room air (10/13/22 11:23 AM) Room air (10/13/22 7:28 AM) Room air (10/13/22 5:15 AM) Blood pressure sites Arm, left (10/13/22 11:23 AM) Arm, left (10/13/22 7:28 AM) Arm, left (10/13/22 5:15 AM) Temperature Route Oral (10/13/22 11:23 AM) Oral (10/13/22 7:28 AM) Oral (10/13/22 5:15 AM) Dry Weight 86.8 kg (10/12/22 4:25 AM) 81.5 kg (10/11/22 3:54 PM) 86.2 kg (09/29/22 8:38 PM) Weight Obtained Via Standing scale (10/13/22 8:28 AM) Bed scale (10/11/22 3:54 PM) Bed scale (10/07/22 5:00 AM) Dry Weight Obtained Via Bed scale (10/12/22 4:25 AM) Standing scale (09/29/22 8:38 PM) Social History Social History Type Response Smoking Status 5-9 cigarettes (betw een 1/4 to 1/2 pack)/day in last 30 days entered on: 07/19/19 Sex Note * Barbie Handley RN: PERFORM Event Display: Discharge/Transfer Note Hospital Authored Date: Nursing Discharge Note Entered On: 10/13/2022 14:00 EDT Performed On: 10/13/2022 14:00 EDT by Barbie Handley RN Nursing Discharge Note 2 Discharge Time : 10/13/2022 14:00 EDT Discharge Level of Care at Discharge : Homehealth/VNA Discharge VNA/Hospice/Home Care([id number]) : [facility] [phone] Patient Left Unit Via : Wheelchair Patient Accompanied Off Unit with : Responsible adult DC Instructions Provided & Signed by Pt : Yes Patient Understands D/C Instructions : Yes Patient Instructions Discharge Signed : Yes Did Pt have Specialty Bed or Wound Vac : No Barbie Handley RN - 10/13/2022 14:00 EDT * Buster Patrick MD: SIGN Buster Patrick MD: SIGN, SIGN, MODIFY Ant Barbosa: MODIFY, SIGN Ant Barbosa G: SIGN, VERIFY BalAnt Castillo G: VERIFY, PERFORM Ant Barbosa G: PERFORM, MODIFY BalAnt Castillo G: MODIFY, MODIFY Baljoneso Ant COSBY G: MODIFY Event Display: Discharge/Transfer Note Hospital Authored Date: Patient: YARA DUNN Age: 57 years Sex: Female : 1965 Associated Diagnoses: None Author: Ant Barbosa Discharge Information Chief Complaint/Reason for Admission chest pain Principal Discharge Diagnosis Non-ST elevation SD (NSTEMI): Present on admission - yes. Secondary Discharge Diagnoses CAD (coronary artery disease): Present on admission - yes. Patient is aware of diagnosis Procedures Cardiac Surgery: Coronary artery bypass grafting X3 graft (Coronary artery bypass grafting x3 with a pedicled left internal mammary artery graft to LAD, right greater saphenous vein graft to distal RCA, OM, pedicled harvesting of the left internal mammary artery, endoscopic harvesting of the right greater saphenous vein). Attending Consultants Isidro LEA, Tony Jalloh Immunizations (Posting Range: 10/15/2012 0:00 EDT - 10/13/2022 11:33 EDT). Allergies Allergic Reactions (All) Severity Not Documented Amoxicillin- Swelling of throat. CeFAZolin- No reactions were documented. Clindamycin- Swelling body. Doxycyline hyclate 100mg capsule- Rash sweeling, seizures and vomiting, incontinence. Erythromycin and Other Macrolides Causing Adverse Effects in Therapeutic Use- Diarrhea and sweelingrash. Levaquin- Ruiz - headache. Other Food Allergy- Raisins, turnip, peanut butter. Peanuts- No reactions were documented. Penicillins- Rash and ear, face, throat swelling. Sulfonamides- Body swelling and rash. Zithromax- Bloody stool and diarrhea. Canceled/Inactive Reactions (All) Severity Not Documented Albuterol- No reactions were documented. Discharge condition: good Compared to admission: improved Functional Status: ambulatory Discharge Disposition Home: family. Home care with: VNA. Discharge Summary distribution: Route to attending, referring, and primary care provider. Route to: Darnell LEA, [facility]. Route to: Angelo Mercado Route to: Forest LEA, [facility]. Discharge Date 10/13/2022 Admission Date 09/29/2022 Code Status Full Resuscitation. Draft of Summary Completed by: Ant Barbosa Case Management Discharge Plan : Case Management Discharge Plan Data 10/13/2022 12:03 EDT Discharge Level of Care at Discharge Homehealth/VNA Discharge VNA/Hospice/Home Care [facility] [phone] Name of Agency #1 [facility] Categories #1 Physical Therapy, [facility] Service Comments #1 A referral has been made to [facility] to provide nursing and PT services at home. The agency will contact you to set up a visit. Please call [phone] if you do not hear from them within 24 hours of discharge. Hospital Course Typed narrative DATE: 10/05/22 PREOPERATIVE DIAGNOSES: Coronary artery occlusive disease POSTOPERATIVE DIAGNOSES: Coronary artery occlusive disease PROCEDURE: Coronary artery bypass grafting x3 with a pedicled left internal mammary artery graft toLAD, right greater saphenous vein graft to distal RCA, OM, pedicled harvesting of the left internalmammary artery, endoscopic harvesting of the right greater saphenous vein, epiaortic ultrasound SURGEON: Buster Patrick M.D. PLANT PATHOLOGY TEACHER: Corey WITT (The PA was my environmental engineering assistant who actively participated in all phases of the CABG operation along with the construction of coronary grafts and closure) (vein harvester) INDICATIONS: The patient is a 57-year-old female with PMH of HTN, HLD, obesity, smoker, premature cad FH, IBS/diverticulitis, fibromyalgia, depression, anxiety, who presented with chest pain found tohave NSTEMI. She underwent cardiac catheterization that revealed 60% iFR positive LAD lesion, 70% LCx, 70% RA lesions. The patient presents today for coronary artery bypass grafting. Ms. Dunn is a 57-year-old lady with medical history of tobacco abuse (40 pack years, currently smoking 1 pack a day), family history of early CAD (father at 45 from CAD, mother at 67 fromCAD), obesity with BMI of 35, sedentary lifestyle, history of IBS and bloating on pancrelipase, depression, JULIO, back pain, fibromyalgia, multiple allergies. On 09/29/22 she presented to [facility] for typical anginal pain ruled in for NSTEMI loaded with aspirin and started on heparin drip and transferred to [facility] for cardiac catheterization. On 09/30/22 she underwent cardiac catheterization that revealed 60% iFR positive LAD lesion, 70% LCx, 70% RA lesions. She was referredto Dr Patrick for coronary artery bypass grafting. SURGEON: Dr. Patrick Cardiology: Dr. Garg HOSPITAL COURSE; issues addressed included: POD # 8 S/P CABG x 3 ( ORR to lad, GSVG to OM, GSVG to RCA) EF: 65% PLAN BY SYSTEM NEUROLOGIC Acute pain due to thoracic surgery, controlled Chronic back pain / Fibromyalgia Depression -- Acetaminophen 975 mg PO QID --Gabapentin discontinued due to sleepiness ---Baclofen 5 mg TID PRN --History of chronic vertigo; Meclizine makes it worse; no orthostasis; outpatient workup CARDIOVASCULAR CAD s/p CABG Hypotension after procedure Hx of HTN/HLD --ASA 81mg --Atorvastatin 80mg daily --Beta Jennifer held for hypotension ; negative orthostasis; continue midodrine 10 mg TID --Plavix 75mg daily x 3 months --Atrial fibrillation ppx: amiodarone 200mg BID for a total of ??4weeks post op; remains NSR 80s RESPIRATORY JULIO COPD, NOT O2 dependent), room air Angioedema(resolved) -- One decadron dose given post op -- Home inhaler not on formulary, resume home inhalers GASTROINTESTINAL Irritable Bowel syndrome -- cardiac diet -- GI Prophylaxis: PPI- Protonix 40 mg Po daily discontinue at discharge -- BM Regimen - Docusate, Senna, and MiraLAX daily discontinue at discharge -- Resumed home Pancrelipase RENAL/FLUIDS/LYTES --Baseline Cr 1.0 creat today 1.0 --nephro check 0.22 --hold lasix due to BP INFECTIOUS DISEASE --No sign of active infection, afebrile, mild leukocytosis, no cough --Ancef given in OR, post-op has mouth swelling/tongue protrusion, d/c'd Ancef and added to allergies list HEMATOLOGY Acute Blood Loss Anemia, not clinically significant, trend up --Goal H+H 12/16 ENDOCRINE Stress Hyperglycemia --HgbA1C 6.0 --Cardiac surgery insulin protocol discontinue at discharge DVT prophylaxis --Lovenox discontinue at discharge -US -negative for DVT --Teds to continue until resumes preoperative activity level Stress Ulcer Prophylaxis --PPI discontinue at discharge Exam Neurological: alert, nonfocal. Pulmonary/Lungs: clear to auscultation Cardiovascular: S1, S2. NSR; no JVD Gastrointestinal: Abdomen (soft, non-tender, non-distended, bowel sounds present), Diet by mouth. +BM Extremities: Pulses palpable, No Edema Surgical Wounds: Chest (dry and intact, no signs of infection, dry, intact), Extremities (dry and intact, no signs of infection). Dry weight 86.8 kg Disposition; DC home+ VNA 10/13/22 Followup: 1 week . . Significant Results Results: Vital signs : VITAL SIGNS SECTION 10/13/2022 11:23 EDT Temperature 98.1 DegF Temperature Route Oral Pulse Rate 87 bpm Respiratory Rate 18 br/min Systolic Blood Pressure 104 mm Hg Diastolic Blood Pressure 51 mm Hg L Blood pressure sites Arm, left Mean Arterial Pressure 69 mm Hg Pulse Pressure 53 mm Hg Oxygen Saturation 96 % Mode of Delivery (Oxygen) Room air , Laboratory : LABORATORY 10/13/2022 0:59 EDT WBC 15.5 k/mm3 H RBC 2.99 m/mm3 L Hgb 8.3 Gm/dL L Hct 26.1 % L MCV 87.3 femtoliters MCH 27.8 pg MCHC 31.8 g/dL L Platelet Count 527 k/mm3 H RDW-SD 45.8 femtoliters MPV 9.6 femtoliters Nucleated RBC (Automated) 0.0 #/100 WBC'S Abs. NRBC 0.0 k/mm3 Sodium 138 mmol/L Potassium 4.3 mmol/L Chloride 100 mmol/L Bicarbonate Level 25 mmol/L Anion Gap 13 BUN 20 mg/dL Creatinine-Blood 1.0 mg/dL Estimated GFR Creatinine 68 ML/MIN/1.73 M2 Magnesium 2.0 mg/dL . 30 minutes spent on discharge Prescription Given this visit:Prescriptions Atorvastatin (Lipitor 80 mg oral tablet) 1 tablet = 80 mg, By Mouth, Daily at bedtime, # 30 tablet, 0 Refills, [facility] [address] [address] [phone] Next Dose: Baclofen (baclofen 5 mg oral tablet) 1 tablet = 5 mg, By Mouth, 3 times a day, # 21 tablet, 0 Refills, [facility] 3, [address] [place] [phone] Next Dose: Clopidogrel (clopidogrel 75 mg oral tablet) 1 tablet = 75 mg, By Mouth, Daily, # 30 tablet, 0 Refills, [place] [address] [phone] Next Dose: Docusate-Senna (docusate-senna 50 mg-8.6 mg oral capsule) 2 capsule, By Mouth, Daily, # 60 capsule, 0 Refills, stop if bowel movement x2/day, [place] [address] [id number] Next Dose: Midodrine (midodrine 5 mg oral tablet) 2 tablet = 10 mg, By Mouth, 3 times a day, # 180 tablet, 0 Refills, [place] [address] [id number] Next Dose: Nicotine (nicotine 21 mg/24 hr transdermal film, extended release) 1 patch, Topically, Daily, # 30 patch, 0 Refills, [place] [address] [id number] Next Dose: Nystatin (nystatin 023781 u/ml oral suspension) 5 mL = 500,000 units, Swish and Spit, 4 times a day, # 140 mL, 0 Refills, [place] [address] [id number] Next Dose: amiODARONE (amiodarone 200 mg oral tablet) 1 tablet = 200 mg, By Mouth, 2 times a day, # 60 tablet, 0 Refills, then stop, [place] [address] [phone] Next Dose: Patient Instructions Given:No qualifying data available Education Given:Cardiac Surgery Nutrition Surgery Cardiac Surgery Discharge Instructions Patient Follow-up:Added Follow Up Time Frame Comments Bartolo Garg 2 to 3 weeks Buster Patrick 1 week office will call you for appt Angelo Tejada 1 month [facility] 11/10/2022 08:00 Discharge Plan Diet/Activity/Patient Education/Follow Up Follow Up with: [facility] Card[facility] Rehabilitation 11/10/2022 8:00 AM; Angelo Tejada Within 1 month; Buster Patrick Within 1 week office will call you for appt; Bartolo Garg Within 2 to 3 weeks. Discharge Disposition Discharge: home with VNA. Home Health Face to Face I certify that this patient is under my care and that I or an allowed non- physician practitioner working with me, had a [id number] encounter with the patient on this date: 10/13/2022. The encounter with the patient was in whole, or in part, for the following medical condition, whichis the primary reason for home health care: Non-ST elevation SD (NSTEMI), s/p CABGx3, CAD (coronaryartery disease). Nursing: Medication management (reconciliation, teaching), Chronic disease management, Wound care and treatment, Home safety evaluation. Physical Therapy. Homebound due to: Pain, decreased strength, and endurance, limited distance ambulation due to recent cardiac surgery, limited to physician appointment visits . Physician Signature: Darnell LEA, [facility] . MEDICATION LIST (Selected) Prescriptions Prescribed Lipitor 80 mg oral tablet: 1 tablet = 80 mg, By Mouth, Daily at bedtime, # 30 tablet, 0 Refills, Maintenance, 10/13/22 11:52:00 EDT, [facility] Partial fill upon patient request if the prescription is for a schedule II opioid drug., 154.94, cm, 10/13/22 1... amiodarone 200 mg oral tablet: 200 mg, 1, tablet, By Mouth, 2 times a day, then stop, # 60 tablet, Refills 0, Tot. Refills 0, Maintenance, 10/13/22 11:52:00 EDT, Route to Pharmacy Electronically, [facility] 3, Partial fill upon patient request if the prescription is for... baclofen 5 mg oral tablet: 1 tablet = 5 mg, By Mouth, 3 times a day, PRN Pain , Moderate, # 21 tablet, 0 Refills, Maintenance, 10/13/22 11:53:00 EDT, Tablet, [facility] 3, Partial fill upon patient request if the prescription is for a schedule II opioid drug., 154.9... clopidogrel 75 mg oral tablet: 75 mg, 1, tablet, By Mouth, Daily, # 30 tablet, Refills 0, Tot. Refills 0, Maintenance, 10/13/22 11:53:00 EDT, Route to Pharmacy Electronically, [facility], Partial fill upon patient request if the prescription is for a schedule II opioi... docusate-senna 50 mg-8.6 mg oral capsule: 2 capsule, By Mouth, Daily, for 30 days, stop if bowel movement x2/day, # 60 capsule, 0 Refills, Acute 11/12/22 11:54:00 EDT, 10/13/22 11:54:00 EDT, Capsule,[facility] 3, Partial fill upon patient request if the prescription is for a sche... midodrine 5 mg oral tablet: 10 mg, 2, tablet, By Mouth, 3 times a day, # 180 tablet, Refills 0, Tot. Refills 0, Maintenance, 10/13/22 11:57:00 EDT, Route to Pharmacy Electronically, [facility] 3, Partial fill upon patient request if the prescription is for a schedule... nicotine 21 mg/24 hr transdermal film, extended release: 1 patch, Topically, Daily, for 30 days, # 30 patch, 0 Refills, Acute 11/12/22 11:55:00 EDT, 10/13/22 11:55:00 EDT, Patch, [facility] 3, Partial fill upon patient request if the prescription is for a schedule II opioid drug., 1 patch Topica... nystatin 791743 u/ml oral suspension: 5 mL = 500,000 units, Swish and Spit, 4 times a day, for 7 days, # 140 mL, 0 Refills, Acute 10/20/22 11:58:00 EDT, 10/13/22 11:58:00 EDT, Suspension, [facility] 3, Partial fill upon patient request if the prescription is for a schedule II... Documented Medications Documented Advair HFA 115 mcg / 21 mc puffs, Inhalation, 2 times a day, # 180 each, 0 Refills, Maintenance, 09/29/22 22:14:00 EDT, Aerosol, Partial fill upon patient request if the prescription is for a schedule II opioid drug. Aspirin Tablet: 81 mg, By Mouth, Daily, Refills 0, Maintenance, 10/13/22 11:52:00 EDT, Partial fillupon patient request if the prescription is for a schedule II opioid drug. BuPROPion (Eqv-Wellbutrin SR) 150 mg/12 hours oral tablet, extended release: 0 Refills, Maintenance, 09/29/22 22:14:00 EDT, Partial fill upon patient request if the prescription is for a schedule II opioid drug. Creon 36,000 units oral delayed release capsule: TAKE ONE CAPSULE BY MOUTH FOUR TIMES A DAY. ADMINISTER WITH MEALS/SNACKS Multivitamin Tablet: 1 tablet, By Mouth, Daily, 0 Refills, Maintenance, 10/13/22 11:55:00 EDT, Tablet, Partial fill upon patient request if the prescription is for a schedule II opioid drug. Probiotic + Colostrum: By Mouth, Daily, 0 Refills, Maintenance, 09/29/22 22:15:00 EDT, Partial fillupon patient request if the prescription is for a schedule II opioid drug. Remove Patch: 1 each, Topically, Daily, 0 Refills, Maintenance, Patch Vashe Topical Solution: 475 mL, Topically, Every 12 hours, 0 Refills, Maintenance, Solution Vashe Topical Solution: 475 mL, Topically, Every 6 hours, PRN Other, 0 Refills, Maintenance, Solution Vitamin B6: Daily, 0 Refills, Maintenance, 09/29/22 22:15:00 EDT, Partial fill upon patient requestif the prescription is for a schedule II opioid drug. acetaminophen 325 mg oral tablet: 975 mg, By Mouth, 4 times a day, PRN, Refills 0, Maintenance, Pain , Mild, 10/13/22 11:52:00 EDT, Partial fill upon patient request if the prescription is for a schedule II opioid drug. loratadine 10 mg oral tablet: 10 mg, 1, tablet, By Mouth, Daily, # 30 tablet, Refills 0, Maintenance, 09/29/22 22:14:00 EDT, Partial fill upon patient request if the prescription is for a schedule IIopioid drug. Therapies Smoking Cessation: Patient greater than or equal to 18 years Patient counseled to quit smoking. * Emmanuelle CARDOSO, Barbie: PERFORM Event Display: Patient Education/Instruction Authored Date: Inpatient Adult Discharge Instructions [place] [id number] Name: YARA QUINTANA: 1965 Visit: 09/29/2022 20:30:00 Current Date: 10/13/2022 12:51 Account: [id number] Inpatient Adult Discharge Instructions We would like to thank you for allowing us to assist you with your healthcare needs. The following includes patient education materials and information regarding your injury/illness. Our entire staffstrives to provide an excellent experience for our patients and their families. PLEASE ENSURE YOU FOLLOW-UP PER THE INSTRUCTIONS BELOW! ?? YOUR OPINION IS IMPORTANT TO US! Please complete the survey you may receive by mail or email. Your feedback will be used to make improvements to the healthcare experiences of our patients and their families. Surveys are administered by [employer], [employer] ?? If further treatment with your primary care physician or another doctor is recommended, it is important for you to keep the appointment. Call your primary care physician or return to the Emergency Department immediately if your condition worsens, fails to improve, or new symptoms develop. If you need to find a doctor, you can call [facility] for a referral at [phone] or toll free at [phone] ([phone]) or log in to [email or web address] ?? You can view and manage your care through the patient portal or by using a health care leann of your choosing. Aubrey is a website that allows you to securely view your medical information including your hospital discharge summary, office visit summaries, medications and follow-up visits. You can also request appointments, renew medications, and request access to your medical information using a health care leann of your choosing, or just ask a question. You can enroll at [email or web address] or register during your next office visit. You have been discharged from [facility], Patient Care Unit: M6. If you have any questions regarding these instructions after you leave, please call us and we will be happy to assist you. [facility] Your Care Team Attending Physician Darnell LEA, Buster Consulting Providers Jarrod LEA, Abdullahi Reason for Your Visit NSTEMI Your Diagnosis CAD (coronary artery disease) Non-ST elevation SD (NSTEMI) NSTEMI (non-ST elevated myocardial infarction) Tests Performed Below is a partial list of the tests performed during your hospitalization. You may have had other tests and procedures not included in this list. Please discuss all test results with your provider. ABG POC CARTRIDGE Albumin Level Alk Phos ALT AST BASE EXCESS POC CARTRIDGE Bilirubin Total + Direct BUN CALCIUM IONIZED POC CART Calcium Level CBC CBC w/ Differential COVID-19 (2019 Novel Coronavirus) PCR Creatinine Electrolytes Glucose Level GLUCOSE POC GLUCOSE POC CARTRIDGE HEMATOCRIT POC CARTRIDGE Hemoglobin A1C (Monitoring) HEMOGLOBIN POC CARTRIDGE Hgb + Hct HOLD GEL TUBE INR K Level LIPID PANEL Magnesium Level Nephro Check PH CORRECTED IONIZED CALCIUM Platelet Count POC Hemochron ACT-LR Potassium Level POTASSIUM POC CARTRIDGE PTT SODIUM POC CARTRIDGE Troponin T, High Sensitivity Type and Screen Chest CT W/O Contrast CXR Portable Doppler Ext Lower Venous Right (US) Doppler Venous Upper Ext Right (US) Portable Chest XR Chest Portable Primary Care Provider Angelo Mercado Advance Directive . Discharge Vitals Temperature: 98.1 DegF Height: 154.94 cm Pulse Rate: 87 bpm Weight: 86.3 kg Respiratory Rate: 18 br/min Body Mass Index:??36.57 kg/m2??Critical Systolic Blood Pressure: 104 mm Hg Body surface area: 1.94 Diastolic Blood Pressure:??51 mm Hg??Low ?? Oxygen Saturation: 96 % ?? Studies Pending All tests and labs ordered during this hospital stay have been completed unless listed below. Please discuss all pending results with your provider listed above in these instructions. ?? BUN CBC Complete Urinalysis/Reflex Culture (Urinalysis Complete/Reflex Culture) Creatinine Electrolytes Magnesium Level Type and Screen What to do next Instructions From Your Doctor Discharge Orders You Need to Schedule the Following Appointments Follow Up with??[facility] When:??11/10/2022 08:00 AM EDT Where: [id number] [phone] Follow Up with??Bartolo Garg When:??Within 2 to 3 weeks Follow Up with??Buster Patrick When:??Within 1 week Why: office will call you for appt Follow Up with??Angelo Tejada When:??Within 1 month Where: [address] [place] [address]- Business (1) Discharge Medications YARA DUNN :1965 Visit Date:09/29/2022 Medications: Please continue your medications until treatment is completed or stopped by your provider. Medications not listed below should be discontinued. Discuss any questions related to medications with your provider. What How Much When Instructions Next Dose New Acetaminophen (acetaminophen 325 mg oral tablet) 975 Milligram Oral 4 times a day as needed for Pain , Mild as needed New amiODARONE (amiodarone 200 mg oral tablet) 1 tab(s) Oral Twice a day Duration: 30 Days then stop ?? Pickup at [place] [address] Tonight at bedtime New Aspirin (Aspirin Tablet) 81 Milligram Oral Daily Tomorrow morning New Atorvastatin (Lipitor 80 mg oral tablet) 1 tab(s) Oral Daily at Bedtime Duration: 30 Days Pickup at [place] [address] Tonight at bedtime New Baclofen (baclofen 5 mg oral tablet) 1 tab(s) Oral 3 times a day as needed for Pain , Moderate Duration: 7 Days Pickup at [place] [address] as needed New Clopidogrel (clopidogrel 75 mg oral tablet) 1 tab(s) Oral Daily Duration: 30 Days Pickup at [place] [address] Tomorrow morning New Docusate-Senna (docusate-senna 50 mg-8.6 mg oral capsule) 2 capsule Oral Daily Duration: 30 Days stop if bowel movement x2/ day ?? Pickup at [place] [address] Tomorrow morning New Emollients, Topical (Vashe Topical Solution) 475 Milliliter Topically Every 6 hours as needed for Other as needed New Emollients, Topical (Vashe Topical Solution) 475 Milliliter Topically Every 12 hours Tonight at bedtime New Midodrine (midodrine 5 mg oral tablet) 2 tab(s) Oral 3 times a day Duration: 30 Days Pickup at [place] [address] Today at 3 PM New Multivitamin (Multivitamin Tablet) 1 tab(s) Oral Daily Tomorrow morning New Nicotine (nicotine 21 mg/ 24 hr transdermal film, extended release) 1 patch(es) Topically Daily Duration: 30 Days Pickup at [place] [address] Tomorrow morning New Nystatin (nystatin 862899 u/ ml oral suspension) 5 Milliliter Swish and Spit 4 times a day Duration: 7 Days Pickup at [facility] 3 Today at 5 PM New Remove Patch (Remove Patch) 1 Each Topically Daily Tomorrow morning Changed Loratadine (loratadine 10 mg oral tablet) 1 tab(s) Oral Daily Tomorrow morning Unchanged bifidobacterium-lactobacillus (Probiotic + Colostrum) Oral Daily Tomorrow morning Unchanged BuPROpion (BuPROPion (Eqv-Wellbutrin SR) 150 mg/ 12 hours oral tablet, extended release) continue home regimen Unchanged Fluticasone-Salmeterol (Advair HFA 115 mcg / 21 mcg) 2 puff(s) Inhalation Twice a day Tonight at bedtime Unchanged Pancrelipase (Creon 36,000 units oral delayed release capsule) TAKE ONE CAPSULE BY MOUTH FOUR TIMES A DAY. ADMINISTER WITH MEALS/ SNACKS ?? Today before meals Unchanged Pyridoxine (Vitamin B6) Daily continue home regimen [facility]: [address] [place], [place] [id number] [phone] ?? What How Much When Comments Stop Taking Estradiol Topical (Estrace Vaginal Cream 0.1 mg/ g) See instructions 1 Gm Vaginally nightly for 2 weeks, then twice per week ?? Stop Taking Fluticasone Nasal (Flonase) Daily Stop Taking Levalbuterol (Xopenex) Nebulized inhalation 3 times a day Stop Taking mirabegron (mirabegron 25 mg oral tablet, extended release) 1 tab(s) Oral Daily do not crush or chew ?? Stop Taking Naproxen (Aleve) 220 Milligram Oral Stop Taking PredniSONE Oral Daily Test Results Below is a partial list of the most recent Laboratory test results done prior to this discharge. You may have had other tests and procedures not included in this list. Please discuss all test resultswith your provider. Antibody Screen - Negative (10/03/2022) Blood Type - O Positive (10/03/2022) Est Creatinine Clearance - 46.27 mL/min (10/13/2022) RBC Available - RE (10/03/2022) RBC Unit ID - [id number] (10/03/2022) ABG POC CARTRIDGE (10/06/2022) ???pH (POC) POC Cartridge - 7.34???pCO2 (POC) POC Cartridge - 47.7 mm Hg???pO2 (POC) POC Cartridge - 81 mm Hg???Estimated Bicarbonate (POC) POC Cart - 26.0 mmol/L???% O2 Sat Arterial (POC) POC Cartridge - 95 %???Specimen Type - Blood Gas - ARTERIAL Albumin Level (10/04/2022) ???Albumin - 4.2 Gm/dL Alk Phos (09/29/2022) ???Alkaline Phosphatase - 97 units/L ALT (09/29/2022) ???ALT (SGPT) - 24 units/L AST (09/29/2022) ???AST (SGOT) - 29 units/L BASE EXCESS POC CARTRIDGE (10/06/2022) ???Base Excess (POC) POC Cartridge - 0 Bilirubin Total + Direct (10/04/2022) ? ?Bilirubin, Total - 0.2 mg/dL? ?Bilirubin, Direct - <0.2 mg/dL? ?Bilirubin, Indirect - Direct bilirubin is less than the measureable limit. Therefore, indirect BUN (10/13/2022) ???BUN - 20 mg/dL CALCIUM IONIZED POC CART (10/06/2022) ???Ionized Calcium (POC) POC Cartridge - 1.20 mmol/L Calcium Level (10/05/2022) ???Calcium - 9.9 mg/dL CBC (10/13/2022) ???WBC - 15.5 k/mm3???RBC - 2.99 m/mm3???Hgb - 8.3 Gm/dL???Hct - 26.1 %???MCV - 87.3 femtoliters???MCH - 27.8 pg???MCHC - 31.8 g/dL???Platelet Count - 527 k/mm3???RDW-SD - 45.8 femtoliters???MPV - 9.6 femtoliters???Nucleated RBC (Automated) - 0.0 #/100 WBC'S???Abs. NRBC - 0.0 k/mm3 CBC w/ Differential (10/07/2022) ???WBC - 20.8 k/mm3???RBC - 3.69 m/mm3???Hgb - 10.6 Gm/dL???Hct - 32.9 %???MCV - 89.2 femtoliters???MCH - 28.7 pg???MCHC - 32.2 g/dL???Platelet Count - 210 k/mm3???RDW-SD - 48.1 femtoliters???MPV - 10.4 femtoliters???Nucleated RBC (Automated) - 0.0 #/100 WBC'S???Abs. NRBC - 0.0 k/mm3???Abs. Neut - 16.7 k/mm3???Abs. Lymph - 1.9 k/mm3???Abs. [place] - 2.0 k/mm3???Abs. Eo - 0.0 k/mm3???Abs. Baso - 0.0 k/mm3???Neut % - 80.5 %???Lymph % - 9.2 %???[place] % - 9.5 %???Eos % - 0.0 %???Baso % - 0.1 %???Imm Gran - 0.7 %???Abs. Imm Gran - 0.2 k/mm3 COVID-19 (2019 Novel Coronavirus) PCR (10/06/2022) ???COVID-19 PCR Specimen Source - NASAL???COVID-19 PCR Result - NEGATIVE Creatinine (10/13/2022) ???Creatinine-Blood - 1.0 mg/dL???Estimated GFR Creatinine - 68 ML/MIN/1.73 M2 Electrolytes (10/13/2022) ???Sodium - 138 mmol/L???Potassium - 4.3 mmol/L???Chloride - 100 mmol/L???Bicarbonate Level - 25 mmol/L???Anion Gap - 13 Glucose Level (10/07/2022) ???Glucose Level - 115 mg/dL GLUCOSE POC (10/10/2022) ???Glucose, POC - 171 mg/dL GLUCOSE POC CARTRIDGE (10/06/2022) ???Glucose (POC) POC Cartridge - 129 HEMATOCRIT POC CARTRIDGE (10/06/2022) ???Hematocrit (POC) POC Cartridge - 34 % Hemoglobin A1C (Monitoring) (09/29/2022) ???Hemoglobin A1C (Monitoring) - 6.0 % HEMOGLOBIN POC CARTRIDGE (10/06/2022) ???Hemoglobin (POC) POC Cartridge - 11.6 Gm/dL Hgb + Hct (10/06/2022) ???Hgb - 11.8 Gm/dL???Hct - 37.4 % HOLD GEL TUBE (10/04/2022) ???Hold Gel Top - SPECIMEN DISCARDED AFTER 1 WEEK INR (10/05/2022) ???INR - 1.2???Protime (PT) - 12.3 seconds K Level (10/06/2022) ???Potassium - 4.4 mmol/L LIPID PANEL (10/07/2022) ???Cholesterol - 89 mg/dL???Triglycerides - 100 mg/dL???HDL Cholesterol - 36 mg/dL???LDL Cholesterol - 33 mg/dL???Non HDL Cholesterol - 53 mg/dL Magnesium Level (10/13/2022) ???Magnesium - 2.0 mg/dL Nephro Check (10/06/2022) ???Acute Kidney Injury Risk Score - 0.22 PH CORRECTED IONIZED CALCIUM (10/06/2022) ???Calcium, Ionized pH Corrected - 1.19 mmol/L Platelet Count (10/05/2022) ???Platelet Count - 188 k/mm3 POC Hemochron ACT-LR (09/30/2022) ???POC ACT-LR - 260.0 seconds Potassium Level (10/06/2022) ???Potassium - 5.6 mmol/L POTASSIUM POC CARTRIDGE (10/06/2022) ???Potassium (POC) POC Cartridge - 4.7 mmol/L PTT (10/07/2022) ???APTT - 26.2 seconds SODIUM POC CARTRIDGE (10/06/2022) ???Sodium (POC) POC Cartridge - 137 mmol/L Troponin T, High Sensitivity (09/29/2022) ???High Sensitivity Troponin (HSTnT) - 97 ng/L Type and Screen (10/11/2022) ???Blood Type - O Positive???Antibody Screen - Negative Allergies (NKA means No Known Allergies) Doxycyline hyclate 100mg capsule??(vomiting, incontinence, seizures, rash sweeling) Erythromycin and Other Macrolides Causing Adverse Effects in Therapeutic Use??(Diarrhea, sweeling rash) Levaquin??(RUIZ - Headache) Other Food Allergy??(raisins, turnip, peanut butter) Peanuts Zithromax??(Bloody stool, Diarrhea) amoxicillin??(Swelling of throat) ceFAZolin clindamycin??(swelling body) penicillins??(ear, face, throat swelling, rash) sulfonamides??(body swelling, rash) Problems Active Problems??(21) Asthma?? Bartholin cyst?? Borderline high cholesterol?? Carpal tunnel syndrome of left wrist?? COVID-19?? Current smoker?? Depression?? IBS (irritable bowel syndrome)?? Low back pain?? Migraine with aura and without status migrainosus, not intractable?? Moderate episode of recurrent major depressive disorder?? Nephrolithiasis?? Obstructive sleep apnea?? Overactive bladder?? Paresthesia of upper extremity?? Right knee pain?? Severe obesity (BMI 35.0-39.9) with comorbidity?? Sinusitis?? Tobacco abuse?? Venous insufficiency (chronic) (peripheral)?? Vitamin D deficiency?? Education Materials Below is the list of Educational Leaflet Providered with your Discharge Instructions. Cardiac Surgery Nutrition?? Surgery ??Cardiac Surgery Discharge Instructions?? Valuables and Belongings I fully understand and agree that [facility] accepts no responsibility for all my personal property including clothing, toilet articles, radios, jewelry, dentures, hearing aids, rings, money, or any other property that is in my possession or is brought to me after admission. I understand certain valuables may be placed in a hospital safe for a short period of time. I understand that the hospital is not liable for loss or damage due to accident, fire, or other natural occurrence while said property is in the safe. I accept full responsibility for any personal property that I keep with me, and will not hold the hospital responsible in case of loss or disappearance. I acknowledge that i have been encouraged to send valuables and belongings home. ?? No Valuables/Belongings: No valuables/belongings present Review of Valuable and Belonging List: With patient, Other: No valuables on arrival to [facility] Date for Pt to Sign Valuables/Belongings: 10/06/22 00:55:00 ?? Other Discharge Information Nutrition Discharge Status?? Nutrition Discharge Status?? Diet (discharge): Please refer to handout given to you by your dietitian/dietitian research Nutrition discharge status: 'Heart Healthy Eating to Prepare for & Recover from Cardiac Surgery'. ?? Wound Assessment?? Wound Assessment?? Wound Location I: Sternum Wound Type I: Surgical Surgical Incision Type I: Surgical Surgical Incision I, Odor: No Surgical Incision Type II: Surgical ?? Case Management Discharge Plan?? Discharge Plan?? Discharge Agency Information?? Discharge Level of Care at Discharge: Homehealth/VNA Name of Agency #1: [facility] Discharge Rx Program: Discharge Prescription Program Service Categories #1: Physical Therapy, [facility] Discharge Rx Program: Discharge Prescription Program Service Comments #1: A referral has been made to [facility] to provide nursing and PT services at home. ??The agency will contact you to set up a visit. ??Please call [phone] if you donot hear from them within 24 hours of discharge. Discharge Rx Program: Discharge Prescription Program ?? Discharge VNA/Hospice/Home Care: [facility] [phone] ? Pulmonary Rehab Status?? Pulmonary Rehab Discharge Status?? Respiratory Rate: 18 br/min PEEP: 5 ? Cardiac Rehab Assessment?? Cardiac Rehab Inpatient Assessment?? Comments-Education: Cardiac Surgery book, Move in the Tube, IS use, Cardiac Risk factor modification Comments-Smoking Cessation: importance Comments-Exercise Activity: home walking Comments-Nutrition: Heart Helathy Comments-Lipids: Diet, exercise medication compliance Comments-Other plan of care: Phase 2 Cardiac rehab Common Emergency Awareness Tips IS IT A STROKE? Act FAST and Check for these signs: FACE Does the face look uneven? ARM Does one arm drift down? SPEECH Does their speech sound strange? TIME Call at any sign of stroke ?? Heart Attack Signs Chest discomfort: Most heart attacks involve discomfort in the center of the chest and lasts more than a few minutes, or goes away and comes back. It can feel like uncomfortable pressure, squeezing, fullness or pain. Discomfort in upper body: Symptoms can include pain or discomfort in one or both arms, back, neck, jaw or stomach. Shortness of breath: With or without discomfort. Other signs: Breaking out in a cold sweat, nausea, or lightheaded. Remember, MINUTES DO MATTER. If you experience any of these heart attack warning signs, call to get immediate medical attention! ?? Smoking can increase your chances of developing chronic health problems and can cause harmful effects to other family members in your house. If you smoke, you are strongly encouraged to quit. Please call [facility] at [phone] or [phone] or log in to [email or web address] for referrals to smoking cessation programs. ?? 736 Suicide & Crisis Lifeline is available 19/12 if you or someone you know needs to find a reason to keep living. By calling 440 you'll be connected to a skilled, trained counselor at a crisis center in your area. INPATIENT DISCHARGE INSTRUCTIONS SIGNATURE PAGE AYRA DUNN Location:[facility] Registration Date and Time:09/29/2022 20:30 EDT Primary Care Physician: Angelo Mercado, Attending Physician: Darnell LEA, [facility], I YARA DUNN, have received the above patient education materials/instructions and have verbalized understanding. If ambulance or transport services are being used I further acknowledge being given a choice of service. ?? If you need to contact me, please call me at this number: . Patient/Registered Safety Engineer Name: Patient/Registered Safety Engineer Signature: Relationship to Patient: Witness Name/Signature: Date: * Ant Barbosa: PERFORM, SIGN, VERIFY Merlin Schumacher: SIGN Event Display: Patient Education Handout Authored Date: * Ant Barbosa: PERFORM Event Display: Patient Education Leaflets Authored Date: Cardiac Surgery Nutrition ?? 652 Heart Healthy Eating to Prepare For and Recover From Cardiac Surgery ? Good nutrition is vital in helping you heal following surgery. Research shows that good nutrition promotes healing for a quicker recovery. ?? Focus on a well- balanced, high protein and low sodium diet that includes whole grains, fruits, and vegetables. ?? Follow these diet guidelines until your follow up appointment with your cardiac surgeon. ?? Prioritizing Protein Rich Foods: ?? Aim to eat between 80-110 grams of protein daily. ?? Have protein rich foods with every meal. If you do not have a good appetite, have a protein-containing supplement 1-2 times a day between meals. ??Be sure to choose lean meats and poultry that are low in fat.??Fish is a good source of protein and cold water fish such as salmon is high in omega-3 fatty acids. ??When cooking, choose to bake, broil, roast, or grill. ??Avoid processed meats, such as ricardo, sausage, ham, pepperoni, hot dogs, cold cuts and canned meats.??Avoid using any salt or salt-containing seasoning blends while cooking or once food is served at the table.?Protein Rich Foods:??Meat, Poultry, Eggs Food Serving Size Protein (grams) Chicken, skinless (white meat)?? 3oz 25 Beef (loin, round, extra lean hamburger) 3oz 26 [place], skinless (white meat) 3oz 26 Ground sirloin 3oz 23 Ervin 3oz 23 Pork 3oz 22 Egg, large 1 egg 6 ?Seafood Food Serving Size Protein (grams) [place] 3oz 19 Tuna (packed in water) 3oz (1/2 - 6oz can) 20 Fish (roney, flounder, cod) 3oz 20 ?Dairy Products and Dairy Substitutes Food Serving Size Protein (grams) [place] Yogurt 5-7oz 12 to 18 Milk (Skim, 1%, Simply Smart) 8oz 8 Soy Milk, Plain 8oz 8 Fairlife Milk 8oz 13 Cheese, Low Sodium, Low Fat (Peruvian, fresh mozzarella) 1oz 7 ?Legumes, Nuts Food Serving Size Protein (grams) Beans (low sodium canned or dried) 1/2 cup 6-11 Nuts (unsalted) 1oz 4-7 Peanut Butter 2 Tbsp 8 ?Ready to Drink Protein Shakes: ?? Calories Protein (grams) Sugar (grams) Ensure High Protein 160 16 4 Glucerna 180 10 4 [place] Breakfast EssentialsLight Start 150 13 3 Muscle Milk 100 Calorie 100 20 0 Premier Protein 160 30 1 ?Whey Protein Powders: ?? Calories Protein (grams) Sugar (grams) Pure Protein (1 scoop) 160 25 2-3 Rhett's Whey Protein (2 scoops) 110 21 2-3 Nestle Beneprotein? (2 scoops) 50 12 0 ?Protein Bars: ?? Calories Protein (grams) Sugar (grams) Zone Perfect Nutrition Bars (lower potassium, lower phosphorous option) 200 14 10-15 Oatmega Protein Bars 190 14 5 [place] Protein Bars 190 10 6-7 ?If you have diabetes, choose lower sugar/ lower carbohydrate nutrition shakes to keep your blood sugars in good control before and after surgery.?Whole GrainsAim to have 3-6 servings a day of whole grain foods. If available, choose options labeled as ???Low Sodium?? , and choose to cook and/or serve without adding salt.??- 100% Whole Grain breads and/ or pitas?- Whole Grain Cereals?? - Whole Grain Pastas?- Whole Wheat Flour - Oatmeal?- Whole Grain Crackers - [place] and/or Whole Wheat Tortillas?- Bu lgur (cracked wheat)- Quinoa?- Barley- Millet?- Brown and/or Wild Rice?Fruits and Vegetables:Aim to have a fruit and vegetable with every meal. They make great snacks between meals as well.??- Fresh, seasonal fruits and vegetables- Frozen fruits and vegetables (without added sauces or syrups)- Canned fruit packed in water or own juice- Low Sodium canned vegetables- Dried fruit (keep portions small, such as half a handful)?Foods High in Heart Healthy Fats:- Seeds and nuts (unsalted)- Avocado? - [place], canola,peanut, soy, or sunflower oils- Soft tub or liquid margarines and vegetable oil spreads without trans fat- Salad dressings made with heart healthy oils?Reducing Sodium:A low sodium diet contains 2000 milligrams (mg) of sodium or less per day.Salt and preservatives in processed foods are the main source of sodium. A single teaspoon of salt has 2300mg of sodium.? Select foods with 140 mg of sodium or less per serving ??? Foods with more than 300 mg of sodium per serving may not fit into a low sodium diet plan ??? Avoiding processed foods and choosing more fresh foods is a simple way to reduce sodium. Fresh fruits, vegetables, and meats are naturally low sodium. ?Salt-Free?? or ???Sodium Free?? items have lessthan 5mg of sodium per serving ?Very low-sodium?? items have less than 35mg of sodium per ser ving. ?Low- sodium?? items contain less than 140mg of sodium per serving ??? Be cautious with items labeled ???Unsalted?? or ???No Added Salt?? , as they may still be high in sodium, check the food label. ? Avoid Added Sugars:Foods with added sugars add calories, but not essential nutrients.??Avoid the following beverages and foods: ??? Regular sodas, fruit punch drinks, sports drinks, and energy drinks??? Candy ??? Cakes, cookies, brownies ??? Pastries, doughnuts, Danishes, and sweet rolls ??? Pies and cobblers ??? Ice creams and sherbets ??? Table sugar ?If you have nutrition questions when you are in the hospital, please ask to see the dietitian or dietetic technici ? * Ezio COSBY, Ant Robertson: PERFORM Event Display: Patient Education Leaflets Authored Date: [id number] Surgery Cardiac Surgery Discharge Instructions ?? 272 Cardiac Surgery Discharge Instructions ?? Here is information related to your condition to help you when you get home. ?? Call the Cardiac Surgery office if you experience any of the following: ??? Temperature of 101?? or above, chills, and or sweating. ??? Low grade fever of 99?? - 100?? lasting for a week. ??? Changes in breathing, chest pain, abnormal pain, dizziness, change in pulse, pulse rate or palpitations. ??? Worsening shortness of breath. ??? New onset nausea, vomiting or diarrhea. ??? If you experience any new rash, cough, dizziness, leg cramps, or blurred vision. ??? Any bleeding or swelling at the incision site or if a hard lump forms. ??? Any drainage, redness, tenderness or edges pulling apart at your surgical incision site. ??? A weight gain of more than 2-3 pounds in one day or 5 pounds in 1 week. ??? Worsening ankle swelling or leg pain ??? Pain in calf that beco mes worse when pointing toe up to head ??? Sharp pain when taking a deep breath ??? Urinary tract infection: frequent urination, burning with urination, or urgency to urinate. ??? Extreme Fatigue ?? Call 911 if: ??? You develop a new onset of weakness, numbness, loss of vision, slurred speech or any concern for a stroke or mini-stroke. ??? If you develop numbness, tingling, loss of sensation, and or coolnessto your arms or legs. ??? Fainting, confusion or disorientation. ??? Sudden, severe headache. ??? If you develop chest pain or discomfort that is not relieved with rest ??? If profuse bleeding (does not stop in 30 minutes) occurs, hold pressure to the site and call 911, [address] yourself to [facility]. ??? Bright red color in your stool. ??? Coughing or vomiting up bright red blood.??? Heart rate faster than 150 beasts/minute with shortness of breath or new palpitations. ??? Severe abdominal pain ? ? Extreme weakness and/or chills often associated with fever >101??. ?? Follow Up: A follow up appointment should be made with your doctor. If you do not have an appointment scheduled already, make an appointment when you get home. Follow up care is important; it is strongly encouraged for you to keep your appointment. You may have more than one appointment, one with your elevator technician and one with your primary care doctor and one with the cardiac surgeon. 1. Follow up with your Cardiac Surgeon ???s Nurse Practitioner in 7 to 14 days or as directed. 2. Follow up with your Primary Care Provider in 2-5 weeks or as directed. 3. Follow up with your PrimaryCardiologist in 2-5 weeks or as directed. 4. Cardiac Rehabilitation: You will be assisted in makingarrangements at your 1-2 week follow-up appointment with a nurse practitioner in your surgeon???s office if an appointment has not been made for you prior to discharge. If you have any questions, please call the Cardiac Surgery office at [phone]. ?? Bathing: You can take a shower after you are discharged from the hospital. If you are unsteady on your feet use a shower chair. Do not soak in a tub until all scabs are gone from your incisions. You may need assistance with showering the first few days. ?? Incision Care: Look at your incision site (groin and/or chest wall) every day until it is completely healed. You may see bruising, which is common after the procedure. Check your incision daily for drainage, redness, increased tenderness or edges pulling apart. Keep your incision clean and dry. Use only soap and water to cleanse the area around the incision. Once the incision is healed you may wash over the incision with a soft wash cloth and soap and water. Avoid using perfumed soaps or body washes, lotions,creams, oils, or ointments on your incision. This may irritate your incision and put you at risk for infection. ?? Activity ??? Review the written materials given to you by the Cardiac Rehabilitation staff for your specificexercise program. ??? No heavy lifting over 10 pounds (gallon of milk) for 10 weeks following your surgery. ??? Gradually increase your activity. This will promote wound healing. Remember to alternate periods of activity with periods of rest. ??? It is important to continue to do the coughing and deep breathing exercises to help prevent breathing complications. ??? Use incentive spirometer 8 to 10 times hourly while awake for the first two weeks you are home. ??? Take your temperature every day. ??? Weigh yourself at the same time every morning. ??? Wear elastic stockings for four weeks afteryou return home. Put the stocking on in the morning and remove them at bedtime. ??? Female patientsshould wear a soft supportive bra without under wires to prevent breast from pulling on incision. ?? Driving ? You shouldn???t drive for at least 4 weeks from the date of discharge or if you are taking prescription pain medication. ? Always wear a seat belt. ?Diet ??? Use healthy cooking methods: Bake, Boil, Steam, Broil. ??? Eat mostly plant based diet; fruits and vegetables, whole grains and legumes (beans, peas and lentils). Include nuts and seeds in moderation. ??? Choose lean meats: skinless chicken/turkey breast, red meats with minimal marbling, greater than 90% lean ground meats. ??? Enjoy fish and seafood prepared healthfully twice a week or more. ??? Choose low fat dairy products. ??? Enjoy sweets in moderation. ??? Reduce sodium and salt intake. Use herbs and spices to flavor your food. Daily sodium intake should be less than 3000mg. ??? Avoid processed foods, fried foods and foods that contain trans-fat. ??? Daily protein intake goal is 80-110 grams. ?? Smoking If you smoke, you are strongly encouraged to quit. Smoking can increase blood pressure, decrease exercise tolerance and increase the tendency for blood to clot, decrease HDL (good) cholesterol and creates a higher risk for having a heart attack, stroke or other vascular events. If you smoke and areready to quit, please let us know; referrals to smoking cessation programs are available. ?? Lowering your cholesterol Diet and exercise may not lower your cholesterol enough. Cholesterol medicines may help prevent further cholesterol build up in the arteries. Talk to your doctor about taking medicine for high cholesterol. ?? High blood pressure and diabetes If you have high blood pressure or diabetes, continue with your prescribed treatments. These health problems, if not controlled can put you at risk for having a heart attack, stroke, or other vascular events. ?? Stress Learn to manage stress with ways that fit your needs. Some stress relieving activities include meditation, deep breathing techniques and exercise. Stress that isn???t managed can prolong healing and cause other health problems. Talk to your caregiver if you need additional resources to manage stress. ?? Feelings You may also be impatient to return to your regular activities, and may feel frustrated with your recovery. Remember that your body needs time to heal. In fact, healing takes energy and depletes yourstrength. You will have good days and bad days, and you may feel depressed and angry about how longyour recovery seems to take. Talk to your family or friends about your feelings, and try to remember that you will get better. As you get stronger and more rested, you will feel more positive about your progress. One way to avoid feeling depressed is to maintain as normal a routine as possible. Getup at your usual time and bathe or shower. Get dressed; don ???t stay in your nightclothes all day.Take a rest in the morning and afternoon, and when you feel tired. Get a good night???s sleep. If your depression doesn???t improve, talk to your doctor. ?? Valve Surgery Instructions You will receive a booklet and card specific to the valve you received. This card should be carriedwith you at all times. Your doctor may prescribe an anticoagulant medication to prevent blood clotsthat could lead to a stroke. Your doctor may prescribe an antibiotic.?? This helps prevent infection that could scar and destroy your heart valve. Your will be instructed when to take this medication, such as before dental work, surgery, or medical procedures. ?? Please refer to the Understanding & Preparing for Heart Surgery booklet. ?? If you are being discharged on Coumadin ??/warfarin, please refer to the H&V Anticoagulation Patient Education booklet. ? * Fabiola Zabala DTR: PERFORM Event Display: Discharge/Transfer Note Hospital Authored Date: [id number] Nutrition Discharge Status Entered On: 10/11/2022 11:37 EDT Performed On: 10/11/2022 11:37 EDT by Fabiola Zabala DTR Nutrition Discharge Status Diet (discharge) : Please refer to handout given to you by your dietitian/dietitian research Nutrition discharge status : 'Heart Healthy Eating to Prepare for & Recover from Cardiac Surgery'. 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 Pre-Procedure Process : NPO except for medications Understands Sedation : Moderate sedation Family Orientation : Visiting hours Verbalizes Pain Reduction Strategies : Pain medication requests Patient Ed Materials Pre-Procedure : View appropriate media Describes Post-Procedure Process : Activity restrictions, Frequents (BPs, groin checks and CMS to effected extremity) Christal Gomez RN - 09/30/2022 7:59 EDT Cardiac catheterization study * Event Display: Cardiac Title I Assistant Report Authored Date: * Event Display: Cardiac Title I Assistant Report Authored Date: Cardiac Diagnostic + PCI Report Demographics Patient Name SHAIKH YARA Gender Female [employer] Room Number M512 Height 60.63 inches Date of 1965 Weight 190.04 pounds Age 57 year(s) BSA 1.84 m2 Accession Number [id number] BMI 36.35 kg/m2 Referring Physician Yolanda Ge MD Date of Study 09/30/2022 Tony Esquivel MD Performing Physician Bartolo Garg MD Fellow Mick Carey Interventional Physician Bartolo Garg MD Procedure Procedure Type Diagnostic procedure:Coronary Angiography with [facility] PCI procedure:FFR, Coronary IVUS [facility] Diagnostic Catheterization Status:Urgent [facility] Interventional Catheterization Status:Urgent Indications Indications: Chest pain. Clinical History Admission Medications + +------+-------+ + + +---------+ !Medication !Dosage!Times !Last !Last !Administered !Comments ! ! ! !Per Day!Delivery !Delivery ! ! ! ! ! ! !Date !Time ! ! ! + +------+-------+ + + +---------+ !Aspirin (any)!81 mg ! !09/30/2022 !00:00 !Yes ! ! + +------+-------+ + + +---------+ Clinical Evaluation Leading to Procedure - The patient's CAD presentation was assessed as: Non-STEMI. - The patient's anginal syndrome during the past two weeks was assessed as: Class IV according to the [place] Cardiovascular [employer] Classification System (CCS). ACC Risk Factors The patient risk factors include:obesity, treated and controlled hypercholesterolemia, treated and controlled hypertension, family history of premature CAD appeared at age 45, last creatinine: 0.8 mg/dl, creatinine clearance: 104.31 ml/min, dyslipidemia and Current - Every day tobacco use. Additional Clinical History:57-year-old lady with past medical history of tobacco abuse (40 pack years, currently smoking 1 pack a day), family history of early CAD (father at 45 from CAD, mother at 67 from CAD), obesity with BMI of 35, sedentary lifestyle, history of IBS and bloating on pancrelipase, multiple allergies, who presented to [facility] for typical anginal pain ruled in for NSTEMI loaded with aspirin and started on heparin drip and transferred to [facility] for cardiac catheterization. Hemoglobin A1c of 6%. Procedure Data Procedure Date Date: 09/30/2022Start: 13:58End: 15:10 The procedure was explained in detail to the patient. Risks, complications and alternative treatments were reviewed. Written consent was obtained. Entry Locations - Retrograde Percutaneous access was performed through the Right Radial artery. A 6 Fr sheath was inserted. Hemostasis was successfully obtained using TR Band. Procedure Medications - Versed (Midazolam) I.V. 1 mg. - Fentanyl I.V. 50 mcg. - Lidocaine 2% S.C. Right Wrist 5 ml. - Oxygen NC 2 l/min. - Nitroglycerin I.A. 200 mcg. - Heparin I.V. 4000 units. - Nitroglycerin I.A. 100 mcg. - Versed (Midazolam) I.V. 0.5 mg. - Fentanyl I.V. 25 mcg. - Heparin I.V. 5000 units. - Nitroglycerin I.A. 200 mcg. - Heparin I.V. 3000 units. Sedation: My in-service moderate sedation time was from 1406 to 1506 . Refer to the procedural log for detailed chronological information. Contrast Material - Omnipaque 50 ml Diagnostic Catheters - A5F JR 4.0 DxTERITY DIAGNOSTIC CATHETERwas used for: Left heart catheterization. - A5F JR 4.0 DxTERITY DIAGNOSTIC CATHETERwas used for: Right coronary angiography. - A5F JL 3.5 DXTERITY DIAGNOSTIC CATHETERwas used for: Left coronary angiography. - A6F EBU 3.5 LAUNCHER GUIDING CATHETERwas used for: FFR . - [id number] RX NUNAKAUYARMIUT EYE CANTWELL DIGITAL IVUS CATHETERwas used for: IVUS. Fluoroscopy Time: PCI: 12:46 minutes. Total: 12:46 minutes. Fluoroscopy Dose: PCI: 784 mGy. Total: 784 mGy. Dose Area Product:PCI: [id number] mGy/cm2. Total: 53.984537034708665 mGy/cm2. Dose Area Product:PCI: [id number] ??Gy/m2. Total: 5.0308916335154656 ??Gy/m2. Angiographic Findings Cardiac Arteries and Lesion Findings LMCA: Lesion in LMCA: Distal subsection.45% stenosis 4 mm length. Pre procedure EMELIA III flow was noted. Good runoff was present.The lesion was discrete and eccentric.The lesion showed with smooth contour.Bifurcation lesion. Pre PCI IVUS: The Plaque Composition is Fibrous. MLD:2.9 mm MLA:7.7 mm2 Lesion in LMCA: Mid subsection.30% stenosis 5 mm length. Pre procedure EMELIA III flow was noted. Good runoff was present.The lesion was discrete and eccentric.The lesion showed with smooth contour. Pre PCI IVUS: The Plaque Composition is Fibrous. MLD:3.3 mm MLA:11 mm2 Vessel Diameter:4.6 mm Vessel Area:20.1 mm2 Area Stenosis:45 % LAD: Lesion in Mid LAD: Proximal subsection.60% stenosis 13 mm length. Pre procedure EMELIA III flow was noted. Good runoff was present.The lesion was tubular and eccentric.The lesion showed with smooth contour. Pre PCI IVUS: The Plaque Composition is Fibrous. MLD:2.2 mm MLA:4.3 mm2 Lesion in Prox LAD: Mid subsection.55% stenosis 6 mm length. Pre procedure EMELIA III flow was noted. Good runoff was present.The lesion was discrete and eccentric.The lesion showed with smooth contour. LCx: Lesion in Prox CX: Ostial.70% stenosis 11 mm length. Pre procedure EMELIA III flow was noted. Good runoff was present.The lesion was tubular and eccentric.The lesion showed with smooth contour.Bifurcation lesion. Lesion in 2nd Ob May: Ostial.45% stenosis 14 mm length. Pre procedure EMELIA III flow was noted. Good runoff was present.The lesion was tubular and eccentric.The lesion showed with smooth contour.Bifurcation lesion. RCA: Lesion in Prox RCA: Mid subsection.70% stenosis 11 mm length. Pre procedure EMELIA III flow was noted. Good runoff was present.The lesion was tubular and eccentric.The lesion showed moderate angulation. Lesion in Dist RCA: Mid subsection.35% stenosis 6 mm length. Pre procedure EMELIA III flow was noted. Good runoff was present.The lesion was discrete and eccentric.The lesion showed with smooth contour. Hemodynamics Condition: Rest O2 Consumption: Estimated: 177.32Heart Rate: 73 bpm Pressures (mmHg) +-----+ + !Site !Pressure ! +-----+ + !LV !117/6 ,18 ! +-----+ + !AO !117/62 (86)! +-----+ + !LV !116/5 ,16 ! +-----+ + !AO !120/71 (92)! +-----+ + Valve Gradients and Areas +------+----+----+----+-----+----+------+ !Valve !Peak!Mean!Area!Index!Flow!Source! +------+----+----+----+-----+----+------+ !Aortic!0 !0 ! ! ! ! ! +------+----+----+----+-----+----+------+ !Aortic!0 !0 ! ! ! ! ! +------+----+----+----+-----+----+------+ Shunts Oxygen Values O2 Consumption 177.32 Interventional Procedure Cardiac lesions LAD: Lesion in Mid LAD: Proximal subsection.60% stenosis 13 mm length. Pre procedure EMELIA III flow was noted. Good runoff was present.The lesion was tubular and eccentric.The lesion showed with smooth contour. Pre PCI IVUS: The Plaque Composition is Fibrous. MLD:2.2 mm MLA:4.3 mm2 Devices used - 185cm STR OMNIWIRE PRESSURE GUIDEWIRE. Number of passes: 1. Conclusions Interventional Summary There is no significant gradient on pullback across the aortic valve. Successful hemostasis of the right radial artery using a radial compression device . Right dominant system. By angiography the proximal RCA and ostial circumflex appears significant. Distal left main was moderate by angiography and intravascular ultrasound demonstrated a fibrous plaque with MLA of 7.7 mm2. Proximal and mid LAD lesion by angiography was moderate and was positive by coronary physiology. iFR evaluation of the LAD coronary artery was 0.88 , which is consistent with a hemodynamically significant lesion. LVEDP 16 mmHg. Interventional Recommendations Secondary risk factor modification according to best available evidence. Continue aspirin 81 mg indefinitely. Continue to maximize medical therapy. Tobacco cessation. Obtain echocardiogram. Recommend coronary artery bypass graft surgery given the above anatomy. ACC Diagnostic Recommendations: CABG. Complications:None. Signatures History and physical note * Event Display: History and Physical Hospital Authored Date: * Fredy LEA, [facility]: PERFORM, MODIFY, MODIFY, MODIFY, MODIFY Event Display: History and Physical Hospital Authored Date: Patient: ??, YARA ? Age:??57 Years?Sex:??Female?:??1965?? Chief Complaint/Reason for Consultation Patient came as a transfer from [facility] for cardiac catheterization which she was found tohave non-STEMI. History of Present Illness 57-year-old female with a past medical history of for COPD/asthma, chronic active smoking, depression, IBS, sleep apnea, vitamin D deficiency who did have a complaint of some discomfort from the last2 days on the right side of jaw . ??She thought it could be due to facial exercise that normally she does. ??Today, she did go for her?GI evaluation for pancreatic insufficiency. ??At the clinic she did have a chest discomfort 8/10 grade retrosternal with bilateral arm tingling/pressure-like feeling. ??Chest discomfort was dull achy without any palpitation, clamminess, shortness of breath, sweating. ??Again later on she did have reoccurrence of the chest discomfort and she did go to [facility]. ??Chest pain got slightly better with nitro but mainly she got relief with the morphine. ??Her second troponin was high. ??She did have a couple of episodes of chest discomfort at [facility] that got better with morphine. ??Her blood pressure was high and cardiology recommended halfinch of Nitropaste??along with metoprolol. X-ray report as per documentation from the [facility] ruled out any acute pathology she was started on heparin drip and was given aspirin, metoprolol and Lipitor. ??She was transferred to the [facility] for cardiac catheterization. She denied any calf tenderness, immobility or any other risk factor for DVT/pulmonary embolism. ??During my examination she was pain-free. ??I did inform the cardiology team and plan is to do cardiaccath and to keep her n.p.o. from last night. Review of Systems ?? History of chest pain as mentioned above. ??She denied any lightheadedness, dizziness, double vision, blurred vision, slurred speech. ??Complaint of on and off dry cough consistent with smoking. ??Otherwise all other review of systems are obtained from the patient and are negative for except as mentioned above. Objective Vital Signs?? Temperature: 98.1 DegF (09/29/22 20:38:00) Temperature Route: Oral (09/29/22 20:38:00) Pulse Rate: 66 bpm (09/29/22 20:38:00) Respiratory Rate: 18 br/min (09/29/22 20:38:00) Systolic Blood Pressure: 114 mm Hg (09/29/22 20:38:00) Diastolic Blood Pressure: 62 mm Hg (09/29/22 20:38:00) Blood pressure sites: Arm, right (09/29/22 20:38:00) Mean Arterial Pressure: 79 mm Hg (09/29/22 20:38:00) Pulse Pressure: 52 mm Hg (09/29/22 20:38:00) Early Warning Score: 0 (09/29/22 20:46:40) ? Physical Exam ?? General Appearance: Moderately nourished, not in any apparent distress, alert, awake and oriented x3. Skin: No rash. ??Warm, dry, pink, no pallor, intact. Eye: ??Normal conjunctiva.?? HEENT: No JVP. ??Moist mucous membrane. Heart: ??S1, S2. ??No murmurs. ??Chest pain is reproducible in the lower sternal area. Respiratory: ??Clear to auscultation, occasional expiratory wheezing. GI: ??Abdomen is soft, nontender, nondistended. ??Bowel sounds are positive. ??No organomegaly Neurologic: ??Nonfocal neurological examination. ??Cranial nerves II through XII normal. ??Deep tendon reflexes normal. Extremities: ??No calf tenderness, no clubbing, no edema. Psychiatric: ??Appropriate affect. Musculoskeletal: Moving all extremities. Lymphatic system: No cervical lymphadenopathy. Assessment/Plan 57-year-old female with a past medical history of for COPD/asthma, chronic active smoking, depression, IBS, sleep apnea, vitamin D deficiency who did come from the [facility] for non-STEMI for cardiac catheterization. ?? Non-STEMI Angina Her clinical Presentation is consistent with non-STEMI. ??She is on heparin drip. ??We will get lipid panel, HbA1c level. ??We will continue with Lipitor 80 mg, metoprolol as per the heart rate and blood pressure, nitro as needed along with morphine as needed. ??Cardiology team is already informed.??We will keep her n.p.o. for cardiac cath in the morning time. ??If the patient will have a reoccurrence of chest discomfort we will start her on Nitropaste. ??Currently she is pain-free. ??UnlikelyPE. ??Unlikely aortic dissection. ?? Chronic pancreatic insufficiency. We will continue with the pancreatic enzymes. History of chronic active smoking. ??She is advised to quit smoking. ??She denied for the nicotine patch. ?? DVT prophylaxis. She is on heparin drip. ?? CODE STATUS: Full code. Disposition: Home after the cardiac cath. Disclaimer: ??This note ??was accomplished with use of [employer] voice recognition software, which is prone to medical and other word misidentifications and grammatical errors. ??The physician does strive to identify and correct these, but some could still be present. ??Please do not hesitate to contact the physician for clarifications. ??I will continue to take care of this patient till 7 AM of theadmitting date. ? Histories Allergies Allergies ?(Active and Proposed Allergies Only) sulfonamides? (Severity: Unknown severity, Onset: Unknown) ?Reactions: rash, body swelling Doxycyline hyclate 100mg capsule? (Severity: Unknown severity, Onset: Unknown) ?Reactions: rash sweeling, seizures, vomiting, incontinence penicillins? (Severity: Unknown severity, Onset: Unknown) ?Reactions: rash, ear, face, throat swelling Levaquin? (Severity: Unknown severity, Onset: Unknown) ?Reactions: RUIZ - Headache clindamycin? (Severity: Unknown severity, Onset: Unknown) ?Reactions: swelling body Zithromax? (Severity: Unknown severity, Onset: Unknown) ?Reactions: Diarrhea, Bloody stool Erythromycin and Other Macrolides Causing Adverse Effects in Therapeutic Use? (Severity: Unknownseverity, Onset: Unknown) ?Reactions: sweeling rash, Diarrhea amoxicillin? (Severity: Unknown severity, Onset: Unknown) ?Reactions: Swelling of throat Other Food Allergy? (Severity: Unknown severity, Onset: Unknown) ?Reactions: raisins, turnip, peanut butter ? Past Medical History/Problem List Active Problems??(21) Asthma Bartholin cyst Borderline high cholesterol Carpal tunnel syndrome of left wrist COVID-19 Current smoker Depression IBS (irritable bowel syndrome) Low back pain Migraine with aura and without status migrainosus, not intractable Moderate episode of recurrent major depressive disorder Nephrolithiasis Obstructive sleep apnea Overactive bladder Paresthesia of upper extremity Right knee pain Severe obesity (BMI 35.0-39.9) with comorbidity Sinusitis Tobacco abuse Venous insufficiency (chronic) (peripheral) Vitamin D deficiency ? Past Surgical History Colonoscopy, flexible, proximal to splenic flexure; with removal of tumor(s), polyp(s), or other lesion(s) by snare technique: 04/24/17 Appendectomy: 12/16/12 Appendix operation Cholecystectomy milk duct removal Endoscopy of the stomach and esophagus Endometrial ablation Ablation ? Social History Alcohol Details:??Use: Never. Employment/School Details:??Status: Unemployed. Exercise Details:??Self assessment: Poor condition. ??Regular exercise: No. Home/Environment Details:??Living situation: Home/Independent. ??Lives with: Spouse, son, sister, brother in law , 3grandsons. Nutrition/Health Details:??Diet: Regular. Sexual Details:??Sexually involved in last 6 months: Yes. Substance Abuse Details:??Use: Never. Tobacco Details:??Use: 5-9 cigarettes (between 1/4 to 1/2 pack)/day in last 30 days. ? Family History Mother (): CVD - cardiovascular disease; Heart attack; Heart disease; Stroke Father (): CVD - cardiovascular disease; Heart attack ? Sister had a A-fib Brother had a throat cancer/lung cancer Father at the age of 46 because of SD ? Medications Home Medications bifidobacterium-lactobacillus (Probiotic + Colostrum)?By Mouth?Daily Fluticasone-Salmeterol (Advair HFA 115 mcg / 21 mcg)?2?puff(s)?Inhalation?2 times a day Loratadine (loratadine 10 mg oral tablet)?10?Milligram?1?tablet?By Mouth?Daily Pancrelipase (Creon 36,000 units oral delayed release capsule)?TAKE ONE CAPSULE BY MOUTH FOUR TIMES A DAY. ADMINISTER WITH MEALS/SNACKS Pyridoxine (Vitamin B6)?Daily ? Results Recent Labs ?? EKG at [facility] normal sinus rhythm. ??EKG that was done at [facility] was concerning of nonspecific ST wave changes in the inferior leads. Labs at [facility] WBC 12.9 RBC 5.51 hemoglobin 15.4 platelet count 360 total protein 7.5 albumin 4.4 sodium 140 potassium 5 chloride 106 bicarbonate 26 anion gap 13 BUN 20 creatinine 0.87 AST ALT normal alkaline phosphatase 121 troponin 16 next troponin was 196.9. ??As per the information D-dimer at [facility] was negative. ??PT 11.1 INR 1 PTT (143.1 last troponin 328.9. ? EKG study * Event Display: EKG Authored Date: * Event Display: EKG Authored Date: * Event Display: EKG Authored Date: * Event Display: ECG 12-Lead Authored Date: Please click on pdf link to open report * Event Display: ECG 12-Lead Authored Date: Ventricular Rate: 70 BPM Atrial Rate: 70 BPM P-R Interval: 196 ms QRS Duration: 84 ms Q-T Interval: 394 ms QTC Calculation(Bazett): 425 ms P Navarre: 54 degrees R Navarre: 32 degrees T Navarre: 53 degrees Normal sinus rhythm Normal ECG When compared with ECG of 03-OCT-2022 10:19, MANUAL COMPARISON REQUIRED, DATA IS UNCONFIRMED Confirmed by KIT BARAKAT MD ([id number]) on 10/05/2022 4:05:51 PM [place]: KIT BARAKAT MD * Event Display: ECG 12-Lead Authored Date: Please click on pdf link to open report * Event Display: ECG 12-Lead Authored Date: Ventricular Rate: 68 BPM Atrial Rate: 68 BPM P-R Interval: 188 ms QRS Duration: 80 ms Q-T Interval: 384 ms QTC Calculation(Bazett): 408 ms P Navarre: 65 degrees R Navarre: 35 degrees T Navarre: 56 degrees Normal sinus rhythm Normal ECG When compared with ECG of 01-OCT-2022 02:31, No significant change was found Confirmed by KIT BARAKAT MD ([id number]) on 10/05/2022 4:06:03 PM [place]: KIT BARAKAT MD * Event Display: ECG 12-Lead Authored Date: Please click on pdf link to open report * Event Display: ECG 12-Lead Authored Date: Ventricular Rate: 72 BPM Atrial Rate: 72 BPM P-R Interval: 188 ms QRS Duration: 86 ms Q-T Interval: 414 ms QTC Calculation(Bazett): 453 ms P Navarre: 61 degrees R Navarre: 48 degrees T Navarre: 48 degrees Normal sinus rhythm Normal ECG When compared with ECG of 29-SEP-2022 22:21, MANUAL COMPARISON REQUIRED, DATA IS UNCONFIRMED Confirmed by KIT BARAKAT MD ([id number]) on 10/01/2022 9:12:09 AM [place]: KIT BARAKAT MD Heart * Event Display: Echocardiogram - Complete Authored Date: [id number] Transthoracic Echocardiography Report (TTE) Patient Demographics Patient Name YARA DUNN Date of Study 10/02/2022 Corporate Gender Female Facility Race Ethnicity or Date of 1965 Height: 60.63 inches Age 57 year(s) Weight: 190.04 pounds Accession Number [id number] BSA: 1.84 m2 Room Number 12 BMI: 36.35 kg/m2 Referring Physician Buster Patrick Interpreting Corey Levin MD Physician Chief Operating Officer Mallory Alba [facility] Indications Chest pain. Study Data Type of Study TTE procedure:Echo Complete-Doppler, Colorflow, M-Mode. Study Date10/02/2022 Start Time: 09:12 AM Study Location: [facility] Adult Echo Study Status: Echo lab Patient Status: Routine Technical Quality: Adequate Blood Pressure:103/55 mmHg 2D Measurements LV Diastolic Dimension: 4.1 cm LV Systolic Dimension: 3.1 cm LV Septum Diastolic: 1 cm LV PW Diastolic: 0.95 cm AO Root Dimension: 2.6 cm LA Dimension: 3.1 cm LA ESV (BP):28.2 ml LVOT Stroke Volume: 67.51 ml LA ESV Index: 15 ml/m2 Stroke Volume Index36.69 ml/m2 LVOT: 2 cm Ascending Aorta:2.6 cm Doppler Measurements AV Peak Velocity: 134 cm/s MV Peak E-Wave: 90.8 cm/s AV Peak Gradient: 7.18 mmHg MV Peak A-Wave: 73.1 cm/s AV Mean Gradient: 4 mmHg MV E/A Ratio: 1.24 AV VTI:28.3 cm LVOT Peak Velocity: 101 cm/s MV Mean Gradient: 2 mmHg LVOT VTI21.5 cm MV Area (continuity): 2.99 cm2 AV Area (Continuity):2.39 cm2 MV Deceleration Time: 194 msec E' Septal Velocity: 7.29 cm/s E' Lateral Velocity: 11.3 cm/s E/Med E':12.09991 E/Lat E':8.420304 Cardiac Anatomy Left Ventricle/Interventricular Septum Left ventricular size and wall thickness are normal. The left ventricular ejection fraction is 55-60%. The basal to mid inferior wall is akinetic. Probably normal diastolic function. Left Atrium/Interatrial Septum The left atrium is normal in size. Aortic Valve The aortic valve is trileaflet . The aortic valve appears mildly thickened. There is no aortic stenosis. There is no aortic regurgitation. Mitral Valve The mitral valve appears mildly thickened. There is trace mitral regurgitation. Aorta The ascending aorta and aortic root are normal in size. Right Ventricle The right ventricle is normal in size and function. Right Atrium The right atrium is normal in size. Pulmonic Valve The pulmonic valve is poorly visualized. There is no significant pulmonic regurgitation. Tricuspid Valve The tricuspid valve is poorly visualized. There is trace tricuspid valve regurgitation. Pumonary Artery An accurate pulmonary artery pressure could not be obtained. Venous Structures The inferior vena cava size is normal with normal inspiratory collapse. The central venous pressure estimation is 3 mmHg. Pericardium/Extracardiac There is no pericardial effusion. Summary 1. Left ventricular size and wall thickness are normal. The left ventricular ejection fraction is 55-60%. The basal to mid inferior wall is akinetic. Probably normal diastolic function. 2. The right ventricle is normal in size and function. An accurate pulmonary artery pressure could not be obtained. 3. Biatrial size is normal. 4. There is no hemodynamically significant valvular disease. Comparison No prior study available for comparison. Signature * Event Display: Echocardiogram - Complete Authored Date: US.doppler Carotid arteries - bilateral * Event Display: VL Carotid Duplex Scan Bilat Authored Date: Demographics Procedure Information Patient name: SHAIKH YARA Procedure date: 10/03/2022 9:05 AM Corporate Proc. sub type: Cerebral: Carotid, Carotid Duplex Scan Bilateral. Gender: Female Accession No: [id number] Date of : 1965 Account No: [id number] Age: 57 year(s) Patient status: Routine Admit Status: Inpatient Procedure Staff Probe: L9-3 Ordering physician: Buster Patrick Technical quality: Adequate visualization Referring Physician: Buster Patrick Facility: [facility] Admitting Physician: Saleem Presley MD Study location: [facility] Vascular Lab Attending Physician: Randi Oliveira DO Chief Operating Officer: Shania Hernandez RDMS, RVT Procedure consent obtained: No Interpreting physician: Hamlet Masterson MD Indications Pre-Op Evaluation and Coronary Atherosclerosis. Carotid Procedure Findings Right Left Location PSV (cm/s) EDV (cm/s) Plaque Characteristics PSV (cm/s) EDV (cm/s) Plaque Characteristics Prox CCA 79.7 20.6 104.9 27.7 Dist CCA 73.8 21.5 77.2 26.9 Bulb 65.6 23.8 Heterogeneous 72.9 25.9 Heterogeneous Prox ICA 85.9 37.8 Heterogeneous 96.8 35.6 Heterogeneous Mid ICA 82.3 30.6 88.9 27.8 Dist ICA 87.5 32.4 90.3 36.1 Prox ECA 106.3 24.4 Heterogeneous 139.8 28.5 Heterogeneous Vertebral 54.5 17.2 28.8 7.6 Prox Subclavian 113 0 239.3 0 Right ICA/CCA ratio: 1.19 Right verterbral flow: Antegrade Left ICA/CCA ratio: 1.25 Left verterbralflow: Antegr Carotid Plaque Details Left ICA/CCA ratio: 1.25 Left verterbral flow: Antegrade Right ICA/CCA ratio: 1.19 Right verterbral flow: Antegrade Study Comments REFERENCE Normal: Internal Carotid Artery (ICA) velocity is less than 180 cm/second with no visible plaque. ICA velocity less than 180 cm/second with some visible plaque indicates 1-49% stenosis. ICA velocity between 180-230 cm/second with visible plaque indicates 50-69% stenosis. ICA velocity greater than 230 cm/second with visible plaque indicates 70-99% stenosis. Total Occlusion is indicated by no detectable flow. Physician Conclusions Summary: Right side: Mild atherosclerosis that is not hemodynamically significant at 1-49% stenosis of the Internal Carotid Artery. Antegrade Vertebral artery flow. Multiphasic Subclavian artery flow. Left side: Minimal atherosclerosis that is not hemodynamically significant at1-49% stenosis of the Internal Carotid Artery. Antegrade Vertebral artery flow, however, the waveform has an abnormal appearance. Elevated monophasic Subclavian artery flow. The above findings could be suggestive of an impending steal. There is no previous exam for comparison. * Event Display: VL Carotid Duplex Scan Bilat Authored Date: Cardiology * Event Display: Cardiac Rhythm Strips Authored Date: * Event Display: Cardiac Rhythm Strips Authored Date: * Event Display: VL Venous Duplex Mapping Lower Ext Bilat Authored Date: Demographics Procedure Information Patient name: SHAIKH YARA Procedure date: 10/03/2022 9:30 AM Corporate Proc. sub type: Veins: Lower Extremity Vein Mapping, Venous Duplex Map Lower Extremity Gender: Female Bilateral. Date of : 1965 Accession No: [id number] Age: 57 year(s) Account No: [id number] Patient status: Routine Procedure Staff Admit Status: Inpatient Ordering physician: Buster Patrick Probe: L9-3 Referring Physician: Buster Patrick Technical quality: Adequate visualization Admitting Physician: Saleem Presley MD Facility: [facility] Attending Physician: Randi Oliveira DO Study location: [facility] Vascular Lab Chief Operating Officer: Shania Hernandez RDMS, RVT Procedure consent obtained: Interpreting physician: Hamlet Masterson MD No Indications Pre-Op Evaluation and Coronary Atherosclerosis. Deep Veins: Right Left Location Compression Signal Compression Signal Common Femoral Yes Yes LE Vein Mapping Findings Great Saphenous : Right Left AP AP Diam DIam Location (mm) Branches Quality (mm) Branches Quality Sapheno Femoral Junction 8.5 10.6 GSV High Thigh 4.8 Yes 5 GSV Mid Thigh 4.2 Yes 4.3 Yes GSV Low Thigh 5 4.4 Yes GSV Knee 2.8 Yes 3.4 Yes GSV High Calf 2.2 2.1 Yes GSV Mid Calf 2.4 Yes 1.6 GSV Low Calf 2.8 Yes 2.9 Yes GSV Ankle 2.6 2.3 Small Saphenous: Right Left AP AP Diam DIam Location (mm) Branches Quality (mm) Branches Quality SSV High Calf 2.8 1.5 SSV Mid Calf 2 1.8 SSV Low Calf 1.2 1.4 SSV Ankle 1.6 2.3 Physician Conclusions Summary: Right side: The right Great Saphenous Vein is patent with measurements as noted above. Much of the vein is of marginal size. Left side: The left Great Saphenous Vein is patent with measurements as noted above. The exam was performed in reverse Trendelenburg position. * Event Display: VL Venous Duplex Mapping Lower Ext Bilat Authored Date: Hospital Progress note * Moses Dupree RN: PERFORM, SIGN, VERIFY Event Display: Progress Note Hospital Authored Date: Patient: YARA DUNN Age: 57 years Sex: Female : 1965 Associated Diagnoses: None Author: Moses Dupree RN Findings Evaluation CABG x3 POD 8. On tele - SR / sinus tach 100s. RA. Mild SOB on exertion. Independent. Purwic noc. Overactive bladder. Pain management w/ tramadol and baclofen. [place] bed for comfort. Rings appropriately for needs. See CIS for full biophysical and assessment. Requested to try oxy, tramadol unsuccessful. [place] LEA notfied - Pt educated and willing to try 2.5mg dose first. Given w/ good effect. Cont to monitor. Refused 2300 order of midodrine - Needed education med was not given with other 2100 meds because of rescheduling. Pt wanted to be left alone to sleep. Pt wished to cont taking meds day time. Cont tomonitor BP.. Discharge Information Rehabilitation Discharge : Rehab Discharge Index 10/11/2022 12:45 EDT Walker: distance 10-20 10/10/2022 7:25 EDT Comments on treatment indicated 57F transferred from OSH for cardaic cath found to have NSTEMI now s/p CABG. Pt with low BPs and dizziness. PT indicated to improve strength, bed mob, transfers, gait, and assess stairs. Distance pt will ambulate 20 Full chart review completed Yes Hospital course Hospital course Other findings Received sitting in recliner. Pt c/o some dizziness from recent transfer; BP 94/52. Pt able to stand with CGA to the RW to assess OH, BP 104/55 in standing but Pt reported increased dizziness. Pt returned to sitting and reported her B LE's feel weak... Plan of care PT Gait training, Transfer training, Therapeutic exercise, Functional Activities, Balance training * Bridger CARDOSO, Stacey: PERFORM, VERIFY, MODIFY, SIGN Event Display: Progress Note Hospital Authored Date: [id number] Patient: YARA DUNN Age: 57 years Sex: Female : 1965 Associated Diagnoses: None Author: Bridger CARDOSO, Stacey Findings Narrative/Incidental 1477: Message sent to ALEA Ye, Yara Dunn, 4547. States still has HS from this am and tylenol and ice pack did not help. She says she takes aleve at home and is asking if there is anything else that is available. AAOx4. SR/ST to low 100's, + 2-3 BL LE edema, legs theo wrapped.RA, lungs dim at bases, pt sats 95-98%, CTA. Up independently in room, steady on feet. Pt endorses occasional dizziness, does have underlying hx of dizziness prior to sx and MD aware. No events, systems as other thomas documented. . Discharge Information Rehabilitation Discharge : Rehab Discharge Index 10/11/2022 12:45 EDT Walker: distance 10-20 10/10/2022 7:25 EDT Comments on treatment indicated 57F transferred from OSH for cardaic cath found to have NSTEMI now s/p CABG. Pt with low BPs and dizziness. PT indicated to improve strength, bed mob, transfers, gait, and assess stairs. Distance pt will ambulate 20 Full chart review completed Yes Hospital course Hospital course Other findings Received sitting in recliner. Pt c/o some dizziness from recent transfer; BP 94/52. Pt able to stand with CGA to the RW to assess OH, BP 104/55 in standing but Pt reported increased dizziness. Pt returned to sitting and reported her B LE's feel weak... Plan of care PT Gait training, Transfer training, Therapeutic exercise, Functional Activities, Balance training * Emeka Turk: VERIFY, PERFORM, SIGN Event Display: Progress Note Hospital Authored Date: [id number] Patient: YARA DUNN Age: 57 years Sex: Female : 1965 Associated Diagnoses: None Author: Emeka Turk Surgery CABG (x3) EF 65% Post op day 7 Overnight Events & Current Issues NSR 80s inc midodrine to 10mg q8h continue lasix, weight coming down, weaned to RA Physical Examination Exam Neurological: alert, nonfocal. Pulmonary/Lungs: clear, decreased, bases both. Cardiovascular: S1, S2. Gastrointestinal: Abdomen (soft, non-tender, non-distended, bowel sounds present), Diet by mouth. Extremities: Pulses palpable, Edema trace. Surgical Wounds: Chest (dry and intact, no signs of infection, Aquacell AG to be removed on POD 5),Extremities (dry and intact, no signs of infection). Results Review Today's Results Weight Daily weight past 3 days : Weight 10/07/2022 7:47 EDT Weight Not Done: Task Duplication (Not Done) Weight Not Done: Task Duplication (Not Done) 10/07/2022 5:00 EDT Weight 94 kg LABORATORY 10/12/2022 2:24 EDT WBC 13.3 k/mm3 H RBC 2.81 m/mm3 L Hgb 7.9 Gm/dL L Hct 25.0 % L MCV 89.0 femtoliters MCH 28.1 pg MCHC 31.6 g/dL L Platelet Count 465 k/mm3 H RDW-SD 47.5 femtoliters H MPV 9.7 femtoliters Nucleated RBC (Automated) 0.0 #/100 WBC'S Abs. NRBC 0.0 k/mm3 CICU Vital Signs 10/12/2022 12:18 EDT Temperature 98.0 DegF Temperature Route Oral Respiratory Rate 18 br/min Mode of Delivery (Oxygen) Room air Oxygen Saturation 93 % L Systolic Blood Pressure 103 mm Hg Mean Arterial Pressure 76 mm Hg Diastolic Blood Pressure 62 mm Hg Pulse Pressure 41 mm Hg Lines Impression and Plan Ms. Dunn is a 57-year-old lady with medical history of tobacco abuse (40 pack years, currently smoking 1 pack a day), family history of early CAD (father at 45 from CAD, mother at 67 fromCAD), obesity with BMI of 35, sedentary lifestyle, history of IBS and bloating on pancrelipase, depression, JULIO, back pain, fibromyalgia, multiple allergies. On 09/29/22 she presented to [facility] for typical anginal pain ruled in for NSTEMI loaded with aspirin and started on heparin drip and transferred to [facility] for cardiac catheterization. On 09/30/22 she underwent cardiac catheterization that revealed 60% iFR positive LAD lesion, 70% LCx, 70% RA lesions. She was referredto Dr Patrick for coronary artery bypass grafting. SURGEON: Dr. Patrick POD # 7 S/P CABG x 3 ( ORR to lad, GSVG to OM, GSVG to RCA) EF: 65% PLAN BY SYSTEM NEUROLOGIC Acute pain due to thoracic surgery Chronic back pain / Fibromyalgia Depression -- Acetaminophen 975 mg PO q6 hours --Gabapentin discontinued due to sleepiness ---Baclofen changed to prn --PRN tramadol --Mobility: Increase activity as tolerates. Plan for pt to be out of bed and working with cardiac rehab on POD # 1 --c/o vertigo? Epily maneuver/ PT consult , meclizine CARDIOVASCULAR CAD s/p CABG Hypotension after procedure Hx of HTN/HLD --ASA 81mg --Atorvastatin 80mg daily --Beta Jennifer held for hypotension continue midodrine --Plavix 75mg daily --Atrial fibrillation ppx: amiodarone 200mg BID for a total of ??4weeks post op RESPIRATORY JULIO COPD Angioedema -- One decadron dose given post op -- Home inhaler not on formulary, ordered Breo inpatient and albuterol nebs GASTROINTESTINAL Irritable Bowel syndrome -- cardiac diet -- GI Prophylaxis: PPI- Protonix 40 mg Po daily discontinue at discharge -- BM Regimen - Docusate, Senna, and MiraLAX daily discontinue at discharge -- Resumed home Pancrelipase RENAL/FLUIDS/LYTES --Baseline Cr 1.0 creat today 0.9 --nephro check 0.22 --monitor renal function and urine output --start low dose lasix 20mg PO INFECTIOUS DISEASE --No sign of active infection, daily CBC --Ancef given in OR, post-op has mouth swelling/tongue protrusion, d/c'd Ancef and added to allergies list HEMATOLOGY Acute Blood Loss Anemia --Goal H+H 12/16, daily CBC ENDOCRINE Stress Hyperglycemia --HgbA1C 6.0 --Cardiac surgery insulin protocol discontinue at discharge DVT prophylaxis --Lovenox discontinue at discharge --SCDs --Teds to continue until resumes preoperative activity level Stress Ulcer Prophylaxis --PPI discontinue at discharge DISPOSITION: ambulate, pulmonary hygiene, diurese Care plan as above discussed with Dr Salcedo . . Deprecated Cardiac rehabilitation treatment plan Progress note and attainment of goals (narrative) * Sinai Johnson RN: SIGN, MODIFY Merlin Schumacher: PERFORM, SIGN Merlin Schumacher: SIGN, VERIFY Merlin Schumacher: VERIFY Event Display: Cardiac Rehab Note Authored Date: Patient: YARA DUNN Age: 57 years Sex: Female : 1965 Associated Diagnoses: None Author: Merlin Schumacher Diagnosis Cardiac Rehab Diagnosis: S/P NSTEMI, S/P CABG X3, Pt looks much better today. Pre-exercise Vitals Vital Signs: 80 HR, 100/50 BP Sitting, 96% RA SaO2. Vital Signs Comment: Reviewed in CIS, RN informed of Vital Sign changes. Pre-exercise Physical Examination Neurologic: alert & oriented. Cardiovascular: heart rate regular. Lungs: Normal I:E, Cough no. Activity Symptoms with Cardiac Rehab Symptoms: No exertional symptoms. Activity Transfers: assist x 1 . Ambulate: assist x 1 , distance ambulated 150 feet. Incentive Spirometry Incentive Spirometry: Good technique - effort. Patient Education Education: Family present, Written material included, Cardiac surgery booklet reviewed. Education topic Teachback comprehension 75% Topic: Pathophysiology, Lipid management, Medication education, Role of exercise, Home activity guidelines/limits, Post operative recovery guidelines. Reinforcement needed: Role of exercise, Home activity guidelines/limits, Post operative recovery guidelines. Recommendation and Plan Ambulate: 3 times/day. Outpatient follow up recommended: [facility], in 4 weeks. Cardiac Rehab: Will sign off at this time, Plan is for DC today. Recommendation comment: RN notified of plan. * Alex CARDOSO, Sinai Oliveira: PERFORM Event Display: Cardiac Rehab Note Authored Date: Present for cardiac surgery rounds, please see surgical progress note for updated plan of care. * Merlin Schumacher: PERFORM, SIGN, VERIFY Event Display: Cardiac Rehab Note Authored Date: Patient: YARA DUNN Age: 57 years Sex: Female : 1965 Associated Diagnoses: None Author: Merlin Schumacher Diagnosis Cardiac Rehab Diagnosis: S/P NSTEMI, S/P CABG X3, C/O RUIZ. Pre-exercise Vitals Vital Signs: 80 HR, 98/60 BP Sitting, 97% RA SaO2. Vital Signs Comment: Reviewed in CIS, RN informed of Vital Sign changes. Pre-exercise Physical Examination Neurologic: alert & oriented. Cardiovascular: heart rate regular. Lungs: Normal I:E, Cough no. Activity Symptoms with Cardiac Rehab Symptoms: No exertional symptoms. Activity Transfers: assist x 1 , assistive device. Ambulate: assist x 1 , assistive device, distance ambulated 150 feet. Incentive Spirometry Incentive Spirometry: Good technique - effort. Post-exercise Vitals Vital Signs: 98 HR, 97% RA SaO2. Vital Signs Comment: Reviewed in CIS. Post-exercise Physical Examination Neurologic: alert & oriented. Cardiovascular: heart rate regular. Lungs: Normal I:E, Cough no. Patient Education Education: Patient alone, Cardiac surgery booklet reviewed. Education topic Teachback comprehension 75% Topic: Role of exercise, Home activity guidelines/limits, Post operative recovery guidelines. Reinforcement needed: Medication education, Role of exercise, Home activity guidelines/limits, Postoperative recovery guidelines. Recommendation and Plan Ambulate: 3 times/day. Encourage: Incentive spirometer, AROM. Outpatient follow up recommended: [facility], in 4 weeks. Cardiac Rehab: Daily. Recommendation comment: RN notified of plan. * Merlin Schumacher: VERIFY, PERFORM, SIGN Event Display: Cardiac Rehab Note Authored Date: [id number] Patient: YARA DUNN Age: 57 years Sex: Female : 1965 Associated Diagnoses: None Author: Merlin Schumacher Diagnosis Cardiac Rehab Diagnosis: Attended Cardiac Surgery Rounds, see CV Progress Note for updated POC.. Portable XR Chest Views * OTTOS[employer]erscribe , CIS S: TRANSCRIBE Hien Reyes MD: VERIFY Event Display: Result: Authored Date: [id number] Chest Portable Reason: Other:; tube removal; Clinical Question(s): Pneumothorax COMPARISON: 10/08/2022, 10/06/2022. FINDINGS: LINES AND TUBES: Interval removal of previously seen chest tubes. LUNGS AND PLEURA: Linear discoid atelectasis in the mid lungs bilaterally, unchanged. Stable hazy opacification at the lung bases, could represent atelectasis and/or small pleural effusions. No pneumothorax. HEART, MEDIASTINUM AND AISLINN: Stable. BONES AND SOFT TISSUES: No acute abnormality. Status post median sternotomy. IMPRESSION: No pneumothorax. Lungs appear unchanged. WSN: [id number] Ordering Physician: Rosenda Iyer Dictated By: Hien Reyes MD Dictated Date/Time: 10/09/22 7:48 pm Reviewed By: Hien Reyes MD Signed By: Hien Reyes MD Signed Date/Time: 10/09/22 7:48 pm Transcribed By: HEATHER Transcribed Date/Time: 10/09/22 7:46 pm * CANDEowerscribe , CIS S: TRANSCRIBE Merlin Bhatt MD: VERIFY Event Display: Result: Authored Date: [id number] Chest Portable AP upright at 9:41 AM REASON: Shortness of Breath; Clinical Question(s): Pleural Effusion / Pleural Effusion COMPARISON: 10/06/2022 FINDINGS: LINES AND TUBES: Bilateral chest tubes remain in place. LUNGS AND PLEURA: The central pulmonary vasculature is prominent and indistinct. Hazy bibasilar opacity. Linear opacity in the left midlung, likely scarring or atelectasis. No pneumothorax. HEART, MEDIASTINUM AND AISLINN: Unchanged. BONES AND SOFT TISSUES: Status post median sternotomy. IMPRESSION: Mild pulmonary vascular congestion with hazy opacity at lung bases, likely atelectasis and/or smallpleural effusions. This appearance is not significantly changed from the prior. WSN: [id number] Ordering Physician: Mary Anne Lucero Dictated By: Merlin Bhatt MD Dictated Date/Time: 10/08/22 10:21 a Reviewed By: Merlin Bhatt MD Signed By: Merlin Bhatt MD Signed Date/Time: 10/08/22 10:21 am Transcribed By: HEATHER Transcribed Date/Time: 10/08/22 10:20 am * BHSPowerscribe , CIS S: TRANSCRIBE Merlin Bhatt MD: VERIFY Event Display: Result: Authored Date: [id number] Chest Portable AP semiupright at 6:08 AM REASON: S P Cardiac Surgery; Clinical Question(s): Other:; Cardiac Tamponade; Special Instructions:Post Op Day 1 / Other: COMPARISON: 10/05/2022 FINDINGS: LINES AND TUBES: Endotracheal tube and enteric tube has been removed. Right internal jugular central venous catheter tip projects in the SVC. Mediastinal drain and bilateral chest tubes in place. Multiple wires project over the patient. LUNGS AND PLEURA: Low lung volumes with crowding of lung markings. Unchanged patchy opacity in the left midlung. No pleural effusion. No pneumothorax. HEART, MEDIASTINUM AND AISLINN: Unchanged. BONES AND SOFT TISSUES: Status post median sternotomy. IMPRESSION: Support structures as above, otherwise no significant change. WSN: [id number] Ordering Physician: Corey Catherine Dictated By: Merlin Bhatt MD Dictated Date/Time: 10/06/22 9:01 am Reviewed By: Merlin Bhatt MD Signed By: Merlin Bhatt MD Signed Date/Time: 10/06/22 9:01 am Transcribed By: HEATHER Transcribed Date/Time: 10/06/22 9:00 am * GARETH Garcia S: Constantino Dowd MD: VERIFY Obi Jones DO: SIGN Event Display: Result: Authored Date: [id number] Chest Portable REASON: S P Cardiac Surgery; Clinical Question(s): Cardiac Tamponade; Special Instructions: [facility] Admission to [facility] COMPARISON: CT chest 09/30/2022. Chest radiograph 03/11/2022. FINDINGS: LINES AND TUBES: Right IJ central venous catheter in the lower SVC. Endotracheal tube 1.5 cm from the david. Enteric tube courses normally to the stomach possibly terminating below the [id number]. Subxiphoid approach mediastinal and bilateral pleural drains. LUNGS AND PLEURA: Congested central pulmonary vasculature. Patchy opacity in the left midlung zone. No definite pleural effusion. No pneumothorax. HEART, MEDIASTINUM AND AISLINN: Expected postoperative enlargement of the cardiac mediastinal silhouette. Median sternotomy wires and fixation plates. BONES AND SOFT TISSUES: No acute abnormality. Cholecystectomy clips. IMPRESSION: Lines and tubes as outlined above. Notable for low position of endotracheal tube within 1.5 cm above the david. Patchy left midlung zone opacity, may represent atelectasis. Attention on follow-up imaging. Expected postoperative enlargement of the cardiomediastinal silhouette. I have personally reviewed the images and I agree with this report. WSN: [id number] Ordering Physician: Corey Catherine Dictated By: Obi Jones DO Dictated Date/Time: 10/05/22 11:33 p Reviewed By: Constantino Awan MD Signed By: Constantino Awan MD Signed Date/Time: 10/05/22 11:38 pm Transcribed By: HEATHER Transcribed Date/Time: 10/05/22 11:03 pm Radiology * GARETH Garcia S: Suresh Lieberman MD: VERIFY Event Display: Result: Authored Date: [id number] US Doppler Ext Lower Venous Right Reason: Swelling Extremities; Clinical Question(s): Thrombus COMPARISON: None IMAGING TECHNIQUE: Ultrasound of the veins from the groin through the calf was performed using grayscale, color, and spectral Doppler ultrasound assessing for complete compressibility and normal flowcharacteristics. FINDINGS: Common femoral vein: Patent. No thrombosis. Femoral vein: Patent. No thrombosis. Popliteal vein: Patent. No thrombosis. Gastrocnemius veins: The visualized portions are patent without evidence of thrombosis. Peroneal veins: The visualized portions are patent without evidence of thrombosis. Posterior tibial veins: The visualized portions are patent without evidence of thrombosis. Contralateral common femoral vein: Patent. No thrombosis. OTHER FINDINGS: IMPRESSION: No evidence of deep venous thrombosis. WSN: [id number] Ordering Physician: Emeka Meza Dictated By: Suresh Hall MD Dictated Date/Time: 10/11/22 2:12 pm Reviewed By: Suresh Hall MD Signed By: Suresh Hall MD Signed Date/Time: 10/11/22 2:12 pm Transcribed By: HEATHER Transcribed Date/Time: 10/11/22 2:07 pm * BHSPowerscribe , CIS S: TRANSCRIBE Ny Acosta MD: VERIFY Event Display: Result: Authored Date: [id number] US Doppler Ext Upper Venous Right Reason: Pain Tenderness Extremities; at R Radial cath site; Clinical Question(s): Thrombosis COMPARISON: None. IMAGING TECHNIQUE: Ultrasound examination of the upper extremity deep venous system was performed using grayscale, color, and spectral wave analysis including response to compression. Assessment includes the contralateral jugular and subclavian vein. FINDINGS: Internal jugular vein: Patent. No thrombosis. Subclavian vein: Patent. No thrombosis. Axillary vein: Patent. No thrombosis. Brachial vein: Patent. No thrombosis. Basilic vein: Patent. No thrombosis. Cephalic vein: Patent. No thrombosis. Contralateral internal jugular vein: Patent. No thrombosis. Contralateral subclavian vein: Patent. No thrombosis. Focused evaluation of the area of bruising in the anterior wrist demonstrates normal tissue withoutevidence of a solid or cystic lesion. There is no evidence of a fluid collection or hematoma. IMPRESSION: No evidence of venous thrombosis. WSN: [id number] Ordering Physician: Corey Bryan Dictated By: Ny Acosta MD Dictated Date/Time: 10/02/22 6:25 pm Reviewed By: Ny Acosta MD Signed By: Ny Acosta MD Signed Date/Time: 10/02/22 6:25 pm Transcribed By: HEATHER Transcribed Date/Time: 10/02/22 6:[address] Chest WO contrast * BHSPowerscribe , CIS S: TRANSCRIBE Chai Falcon MD: VERIFY Event Display: Result: Authored Date: [id number] CT Chest W/O Contrast INDICATION/CLINICAL QUESTION: Aneurysm; COMPARISON: None TECHNIQUE: Helical CT scan of the chest without IV contrast, formatted in 3 planes. Weight-based protocol was performed using automatic exposure control. CTDIvol Body: 7.96 mGy, DLP Body: 294 mGy*cm. FINDINGS: GLUING MACHINE ADJUSTER VIEW FINDINGS, LINES AND TUBES: None. TRACHEA AND MAIN BRONCHI: Patent without evidence of tracheal or endobronchial lesion. LUNGS AND PLEURA: Clear lungs. No effusion or pneumothorax. AORTA: Mild atherosclerotic calcification along the ascending thoracic aorta with moderate atherosclerotic calcification along the arch without evidence of underlying aneurysm. MEDIASTINUM and AISLINN: No hematoma, mass or adenopathy. Normal heart size. No pericardial effusion. No esophageal abnormalities. CHEST WALL SOFT TISSUES: Normal. DIAPHRAGM AND UPPER ABDOMEN: No acute process, postcholecystectomy changes. Stomach is debris-filled likely a recent meal. Colon is stool-filled. BONES: No acute abnormalities, no focal osseous lesions. IMPRESSION: No aneurysm. WSN: [id number] Ordering Physician: Buster Patrick Dictated By: Chai Falcon MD Dictated Date/Time: 09/30/22 11:22 p Reviewed By: Chai Falcon MD Signed By: Chai Falcon MD Signed Date/Time: 09/30/22 11:22 pm Transcribed By: HEATHER Transcribed Date/Time: 09/30/22 11:18 pm Patient Care team information Care Team Personnel Name: Carissa Morales LPN Position: S RN Member Role: Primary Care Nurse Name: Narciso Pizarro RN Position: S RN Member Role: Primary Care Nurse Name: Merlin Horn RN Position: S RN Member Role: Primary Care Nurse Name: Raúl Kirk RN Position: S RN Member Role: Primary Care Nurse Name: Terrell PA, Angelo J Position: Reference Physician Member Role: PCP Address: Address: [address] [place] [address]- Name: Teofilo Wilks RN Position: S RN Member Role: Primary Care Nurse Name: Stefania Mariee LPN Position: S RN Member Role: Primary Care Nurse Name: Roxana Mackey Position: S RN Member Role: Primary Care Nurse Name: Tiffany Mahajan RN Position: [facility] RN Member Role: Primary Care Nurse Care Team Related Persons Name: CASIMIRO DAVIS Address: home [address] [place] [address] Name: NO DUNN Address: home
--- OUTSIDE RECORDS SUMMARY | 2023-02-08 09:20 | XMS_ITS | Continuity of Care Document ---
Author Name Unknown Organization [facility] Cali bethany Address [address] [place] [address] [place] [address]- Care Team Providers Care Lawn Service Supervisor Name Role Phone Angelo Mercado Primary Care Physician [phone] [place] [facility] [place] 12/15/22 [facility] [address] [place] [address]- Attending Physician: Darnell LEA, Buster Referring Physician: Angelo Mercado Allergies, Adverse Reactions, [...] Confirmed Active 1Problem added by Discern Expert Vital Signs Most recent to oldest [Reference Range]: 1 Height 154 cm (12/08/22 3:22 PM) Weight 84.09 kg (12/08/22 3:22 PM) Oxygen Saturation [94-100 %] 100 % (12/08/22 3:22 PM) Pulse Rate [55-90 bpm] 91 bpm *H* (12/08/22 3:22 PM) Body Mass Index [18.5-24.99 kg/m2] 35.46 kg/m2 *>HHI* (12/08/22 3:22 PM) Blood Pressure [90-138/55-84 mm Hg] 126/ 80mm Hg (12/08/22 3:22 PM) Respiratory Rate [16-30 br/min] 20 br/mi n (12/08/22 3:22 PM) Temperature [96.8-100.4 DegF] 98.0 DegF (12/08/22 3:22 PM) Mode of Delivery (Oxygen) Room air (12/08/22 3:22 PM) Blood pressure sites Arm, left (12/08/22 3:22 PM) Temperature Route Oral (12/08/22 3:22 PM) Weight Obtained Via Patient/family state d (12/08/22 3:22 PM) Social History Social History Type Response Smoking Status Former smoker, quit more than 30 days ago entered on: 11/24/22 Sex Cardiac surgery Outpatient Note * Darnell LEA, Buster: PERFORM Event Display: Cardiac Surgery Note Office Authored Date: [id number] Patient: ??, YARA ? Age:??57 Years?Sex:??Female?:??1965?? CARDIAC SURGERY OFFICE NOTE ?? DATE:??12/08/22? 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 Wound vac removed and aquacel dressing had been placed by VNA.?? Denies fever, pain, erythema, drainage, numbness, or other wound related complications.? VITAL SIGNS: afebrile, blood pressure??126/80??mmHg, heart rate 91??beats per minute, oxygen saturation 100% on room air at rest.? PHYSICAL EXAMINATION:? CONST: The patient is alert, oriented and pleasantly conversant. EYES: Anicteric, nl conjunctivae, EOM intact ENT: Nl oropharynx NECK: No evidence of JVD or HJR. Carotid impulses and upstroke normal bilaterally, no carotid bruits?? CV: Regular rhythm, no murmur; No aortic pulsation or aortic bruits. RESP: Normal respiratory effort, clear to auscultation bilaterally GI: Soft, non-tender and non-distended bowels sounds normoactive, no abdominal bruits EXT:??1+ extremity edema, no cyanosis SKIN: No rash, skin warm and dry.?? NEURO: Alert and oriented x 3, CN 2-12 grossly intact? Surgical Wounds: Chest: The sternum is stable. The sternal incision is well approximated without erythema. Upper??3cm??open wound with fibrinous exudate no drainage and healthy granulation.??The chest tube sites are healing well. The harvest sites are well approximated without erythema or drainage.? A/P: The patient is a 57 year old female who underwent triple coronary artery bypass grafting on 10/05/22??and sternal wound debridement on ??by me doing well postoperatively. Dressing changed and packed, continue daily. No need for abx.??F/u 1 week for wound check. Pitting edema R>L (vein harvest site), will start 1 week po lasix and reassess next week. ? Buster Patrick MD [facility] Surgery?? [address], [address] [place] [address] Office: [phone] Patient Care team information Care Team Personnel Name: Carissa Morales LPN Position: S RN Member Role: Primary Care Nurse Name: Merlin Horn RN Position: S RN Member Role: Primary Care Nurse Name: Raúl Kirk RN Position: S RN Member Role: Primary Care Nurse Name: Angelo Mercado Position: Reference Physician Member Role: PCP Address: Address: [address] [place] [address] [address] [place], [place] [address] Name: Teofilo Wilks RN Position: S RN Member Role: Primary Care Nurse Name: Stefania Mariee LPN Position: S RN Member Role: Primary Care Nurse Name: Laura Grover RN Position: S RN Member Role: Primary Care Nurse Name: Roxana Mackey Position: S RN Member Role: Primary Care Nurse Name: Nick Carvajal MD Position: [facility] Renal MD Member Role: Lifetime Consulting Physician Address: Address: [address] [facility] [place] [address]- Name: Keyshawn CARDOSO, Tiffany Position: S RN Member Role: Primary Care Nurse Care Team Related Persons Name: CASIMIRO DAVIS Address: home [address] [place] [address] Name: NO HUMPHRIES Address: home
--- OUTSIDE RECORDS SUMMARY | 2023-02-08 09:20 | XMS_ITS | Continuity of Care Document ---
Author Name Unknown Organization [facility] Address [address] [facility], [address] d Floor, [address] [place] [address]- Care Team Providers Care Senior Gl Accountant Name Role Phone Angelo Mercado Primary Care Physician [phone] [facility] [place] Date(s): 08/14/20 - 09/13/20 [facility] [address], [address], [address] [place] [address]- Attending Physician: James Purdy Admitting Physician: James Purdy Referring Physician: AdmtrJames Allergies, Adverse Reactions, Alerts Substance Reaction Severity [...] 09/03/20 16:40:00 EDT, Route to Pharmacy Electronically, [facility], Partial fill upon patient request if the presc... Start Date: 09/03/20 Status: Ordered Flonase Daily, 0 Refills, Maintenance, 07/19/19 8:37:00 EST Start Date: 07/19/19 Status: Ordered ibuprofen 600 mg oral tablet 600 mg, 1, tablet, By Mouth, Every 6 hours, # 30 tablet, Refills 0, Tot. Refills 0, Acute 10/03/20 0:00:00 EDT, 09/03/20 16:40:00 EDT, Route to Pharmacy Electronically, [facility], Partial fill upon patient request if the prescription is... Start Date: 09/03/20 Stop Date: 10/03/20 Status: Ordered MiraLax oral powder for reconstitution = 17 Gm, By Mouth, Daily, dissolve in water before taking, # 255 Gm, 0 Refills, Acute 10/03/20 0:00:00 EDT, 09/03/20 16:40:00 EDT, REC Powder, [facility], Partial fill upon patient request if the prescription is for a schedule II opioid... Start Date: 09/03/20 Stop Date: 10/03/20 Status: Ordered Tylenol 325 mg oral tablet 650 mg, 2, tablet, By Mouth, Every 4 hours, PRN, # 120 tablet, Refills 0, Tot. Refills 0, Acute 10/03/20 0:00:00 EDT, for pain, 09/03/20 16:40:00 EDT, Route to Pharmacy Electronically, [facility], Partial fill upon [...]
--- OUTSIDE RECORDS SUMMARY | 2023-02-08 09:20 | XMS_ITS | Continuity of Care Document ---
Author Name Unknown Organization [facility] [employer] [facility] Address [address] [facility], [address] [place] [address]- Care Team Providers Care Semiconductor Lab Technician Name Role Phone Angelo Mercado Primary Care Physician [place] [facility] [place]): 08/09/19 - 08/19/19 [facility] [address] [facility], [address] [place] [address]- Attending Physician: Admtr, [id number] Admitting Physician: Admtr, [id number] Referring Physician: Admtr, Ar8 Allergies, Adverse Reactions, Alerts Substance Reaction Severity Status clindamycin swelling body Active amoxicillin Swelling of throat Active penicillins rash Active sulfonamides rash Active Zithromax Bloody stool Diarrhea Active Levaquin SPARKS - Headache Active Erythromycin and Other Macro lides Causing Adverse Effects in Therapeutic Use Diarrhea sweeling rash Active Other Food Allergy raisins, turnip, peanut butter Active Doxycyline hyclate 100mg capsule seizure s rash sweeling Active Medications Albuterol 0 Refills, Maintenance, 08/24/13 16:28:52 Start Date: 08/24/13 Status: Ordered Aleve = 220 mg, By Mouth, 0 Refills, Maintenance, 07/19/19 8:37:00 EST Start Date: 07/19/19 Status: Ordered Claritin 5 mg oral tablet, chewable 1 tablet = 5 mg, Daily, 0 Refills, Maintenance, 07/19/19 8:37:00 EST Start Date: 07/19/19 Status: Ordered Flonase Daily, 0 Refills, Maintenance, 07/19/19 8:37:00 EST Start Date: 07/19/19 Status: Ordered NuLYTELY with Flavor Packs oral powder for reconstitution 240 mL, By Mouth, Every 15 minutes, # 4,000 mL, 0 Refills, Maintenance, 02/14/17 9:42:32, 240 mL ByMouth Every 15 minutes Start Date: 02/14/17 Status: Ordered Xopenex Neb, 3 times a [...] not intractable(Confirmed) Active Obstructive sleep apnea(Confirmed) Active Pain in female genitalia on intercourse(Confirmed) [...]
--- OUTSIDE RECORDS SUMMARY | 2023-02-08 09:20 | XMS_ITS | Continuity of Care Document ---
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 Start Date: 09/03/20 Status: Ordered Flonase Daily, 0 Refills, Maintenance, 07/19/19 8:37:00 EST Start Date: 07/19/19 Status: Ordered HYDROmorphone Inj (PACU ONLY) 0.2 mg, Injection, IV Push Slowly, Every 5 minutes, up to a maximum of 2 mg, Hold for: RR less than8 OR Sedation Scale of C, PRN for Pain , Severe, Routine, 09/03/20 14:50:00 EDT Start Date: 09/03/20 Stop Date: 09/04/20 Status: Discontinued ibuprofen 600 mg oral tablet 600 mg, 1, tablet, By Mouth, Every 6 hours, # 30 tablet, Refills 0, Tot. Refills 0, Acute 10/03/20 0:00:00 EDT, 09/03/20 16:40:00 EDT, Route to Pharmacy Electronically, [facility], Partial fill upon patient request if the prescription is... Start Date: 09/03/20 Stop Date: 10/03/20 Status: Ordered MiraLax oral powder for reconstitution = 17 Gm, By Mouth, Daily, dissolve in water before taking, # 255 Gm, 0 Refills, Acute 10/03/20 0:00:00 EDT, 09/03/20 16:40:00 EDT, REC Powder, [facility], Partial fill upon patient request if the prescription is for a schedule II opioid... Start Date: 09/03/20 Stop Date: 10/03/20 Status: Ordered oxyCODONE 5 mg oral tablet 5 mg, 1, tablet, By Mouth, Every 6 hours, PRN, # 10 tablet, Refills 0, Tot. Refills 0, Acute 09/08/20 0:00:00 EDT, as needed for pain, 09/03/20 16:40:00 EDT, Route to Pharmacy Electronically, [facility], Partial fill upon patient request... Start Date: 09/03/20 Stop Date: 09/08/20 Status: Ordered Tylenol 325 mg oral tablet 650 mg, 2, tablet, By Mouth, Every 4 hours, PRN, # 120 tablet, Refills 0, Tot. Refills 0, Acute 10/03/20 0:00:00 EDT, for pain, 09/03/20 16:40:00 EDT, Route to Pharmacy Electronically, [facility], Partial fill upon patient [...] Range]: 1 2 3 Height 154.94 cm (09/03/20 1:27 PM) 154.94 cm (08/27/20 4:52 PM) Weight 82.9 kg (09/03/20 1:27 PM) 82.73 kg (08/27/20 4:52 PM) Oxygen Saturation [94-100 %] 97 % (09/03/20 6:15 PM) 98 % (09/03/20 6:00 PM) 97 % (09/03/20 5:45 PM) Pulse Rate [55-90 bpm] 74 bpm (09/03/20 1:27 PM) Body Mass Index [18.5-24.99] 34.53 *>HHI* (09/03/20 1:27 PM) 34.46 *>HHI* (08/27/20 4:52 PM) Blood Pressure [90-138/55-84 mm Hg] 137/72mm Hg (09/03/20 6:15 PM) 140/76mm Hg *H* (09/03/20 6:00 PM) 135/77mm Hg (09/03/20 5:45 PM) Respiratory Rate [16-30 br/min] 11 br/min *L* (09/03/20 6:15 PM) 12 br/min *L* (09/03/20 6:03 PM) 13 br/min *L* (09/03/20 5:45 PM) Temperature [96.8-100.4 DegF] 98.2 DegF (09/03/20 6:15 PM) 98.1 DegF (09/03/20 4:45 PM) 99.2 DegF (09/03/20 1:27 PM) Liters per Minute 4 L/min (09/03/20 6:00 PM) 4 L/min (09/03/20 5:45 PM) 4 L/min (09/03/20 5:30 PM) Mode of Delivery (Oxygen) Room air (09/03/20 6:15 PM) Nasal cannula (09/03/20 6:00 PM) Nasal cannula (09/03/20 5:45 PM) Blood pressure sites Arm, left (09/03/20 1:27 PM) Temperature Route Temporal (09/03/20 6:15 PM) Temporal (09/03/20 4:45 PM) Temporal (09/03/20 1:27 PM) Dry Weight 82.9 kg (09/03/20 1:27 PM) 82.73 kg (08/27/20 4:52 PM) Weight Obtained Via Standing scale (09/03/20 1:27 PM) Patient/family stated (08/27/20 4:52 PM) Dry Weight Obtained Via Standing scale (09/03/20 1:27 PM) Social History Social History Type Response Smoking Status 5-9 cigarettes (betw een 06/01 to 1/2 pack)/day in last 30 days entered on: 07/19/19 Sex
--- OUTSIDE RECORDS SUMMARY | 2023-02-08 09:20 | XMS_ITS | Continuity of Care Document ---
Author Name Unknown Organization [facility] [employer] Address [address] [place] [address], [address] [place] [address]- Care Team Providers Care School Physical Therapist Name Role Phone Angelo Mercado Primary Care Physician En[place] [facility] [place] Date(s): 08/07/20 - 09/06/20 [facility] [address] [facility], [address] [place], [place] [address] Allergies, Adverse Reactions, Alerts Substance Reaction Severity [...] 09/03/20 16:40:00 EDT, Route to Pharmacy Electronically, [facility], Partial fill upon patient request if the presc... Start Date: 09/03/20 Status: Ordered Flonase Daily, 0 Refills, Maintenance, 07/19/19 8:37:00 EST Start Date: 07/19/19 Status: Ordered ibuprofen 600 mg oral tablet 600 mg, 1, tablet, By Mouth, Every 6 hours, # 30 tablet, Refills 0, Tot. Refills 0, Acute 10/03/20 0:00:00 EDT, 09/03/20 16:40:00 EDT, Route to Pharmacy Electronically, [facility], Partial fill upon patient request if the prescription is... Start Date: 09/03/20 Stop Date: 10/03/20 Status: Ordered MiraLax oral powder for reconstitution = 17 Gm, By Mouth, Daily, dissolve in water before taking, # 255 Gm, 0 Refills, Acute 10/03/20 0:00:00 EDT, 09/03/20 16:40:00 EDT, REC Powder, [facility], Partial fill upon [...] 09/03/20 16:40:00 EDT, Route to Pharmacy Electronically, [facility], Partial fill upon patient request... Start Date: 09/03/20 Stop Date: 09/08/20 Status: Ordered Tylenol 325 mg oral tablet 650 mg, 2, tablet, By Mouth, Every 4 hours, PRN, # 120 tablet, Refills 0, Tot. Refills 0, Acute 10/03/20 0:00:00 EDT, for pain, 09/03/20 16:40:00 EDT, Route to Pharmacy Electronically, [facility], Partial fill upon [...]
--- OUTSIDE RECORDS SUMMARY | 2023-02-08 09:20 | XMS_ITS | Continuity of Care Document ---
Author Name Unknown Organization [facility] [employer] Address [address] [facility], [address] [place] [address]- Care Team Providers Care Software Asset Manager Name Role Phone Angelo Mercado Primary Care Physician [phone] [place] [facility] [place] - 01/22/21 [facility] [address], [address] [place] [address]- Attending Physician: Vanessa Blanco NP Admitting Physician: Vanessa Blanco NP Referring Physician: Angelo Mercado Allergies, Adverse Reactions, [...] 09/03/20 16:40:00 EDT, Route to Pharmacy Electronically, [facility], Partial fill upon patient request [...] Gm, 3 Refills, Maintenance, 11/06/20 13:33:00 EDT, [facility], Partial fill upon patient request if [...]
--- OUTSIDE RECORDS SUMMARY | 2023-02-08 09:20 | XMS_ITS | Continuity of Care Document ---
Author Name Unknown Organization [facility] Address [address] [place] [address]- Care Team Providers Care Lockstitch Cup Setter Name Role Phone Angelo Mercado Primary Care Physician [phone] Encounter [facility] Date(s): 11/21/22 - 11/28/22 [facility] Cardiac Surgery [address] [place] [address] Attending Physician: Prince Moise MD Referring Physician: Angelo Mercado Allergies, Adverse Reactions, [...] oldest [Reference Range]: 1 Height 154 cm (11/22/22 1:11 PM) Oxygen Saturation [94-100 %] 98 % (11/22/22 1:11 PM) Pulse Rate [55-90 bpm] 86 bpm (11/22/22 1:11 PM) Blood Pressure [90-138/55-84 mm Hg] 118/ 68mm Hg (11/22/22 1:11 PM) Temperature [96.8-100.4 DegF] 97.5 DegF (11/22/22 1:11 PM) Mode of Delivery (Oxygen) Room air (11/22/22 1:11 PM) Blood pressure sites Arm, left (11/22/22 1:11 PM) Temperature Route Oral (11/22/22 1:11 PM) Social History Social History Type Response Smoking Status Former smoker, quit more than 30 days ago entered on: 11/24/22 Sex Cardiac surgery Outpatient Note * Stacie Barnhart RN: PERFORM Event Display: Cardiac Surgery Note Office Authored Date: [id number] Patient called into cardiac surgery practice to report alarms on wound vac have gone off x2 times this am. Patient advised to call her VNA to discuss troubleshooting options. Patient will call cardiac surgery practice back if the wound vac issues can't be resolved. * Stacie Barnhart RN: PERFORM Event Display: Cardiac Surgery Note Office Authored Date: [id number] Patient reports x1 oxycodone for pain last evening has controlled pain related to sternal wound vac. Patient is willing to consider pain management consult to discuss strategies for pain control related to wound vac therapy. Note * Event Display: [facility] Cardiac Surgery Consultation Authored Date: [id number] CONSULTATION DATE: 11/21/[address] Tejada: I had the pleasure of seeing your patient, Yomaira Dunn, in the clinic today. As you know, Ms. Dunn is a 57-year-old female who recently underwent coronary artery bypass grafting by Dr. Patrick. She also recently underwent a wound exploration with placement of wound VAC for a superficial wound problem. She returns today complaining of severe pain involving the wound VAC and her upper chest. Thewound VAC was removed and the wound inspected. There was no drainage. She is exceptionally tender all across her chest wall, but there is no sign of erythema or induration. There is no drainage from the wound and there is granulation tissue down to the base. There is an opening, which is not clear j ust how deep it is, but there is no fluid emanating from this. The patient did not want to have thewound VAC replaced. She identifies the wound VAC with pain; however, without the wound VAC, she still had a significant amount of pain and, after replacing the wound VAC, she seems to have less pain than she was having before. She agreed to have the wound VAC. She does seem to have excessive pain. She almost has a hyperesthesia of the chest wall. It is unclear to me whether she has a more involved process of underlying tissues. For this, we will order a CAT scan. We did discuss her pain management and she was given a prescription for a short course of oxycodone. My office will be in contact with her tomorrow and probably change that regimen to some extent. She had originally told us that she was on q4 hour Extra Strength Tylenol 2 tabs, which would be 6 grams a day. After that, she said she was only on 1 gram q6 hours or 4 times a day. I informed her that usually the upper limit is about 3 times a day and that she should limit that. The oxycodoneis about every 4 hours and we will consider intermittent ibuprofen. At this point, the wound VAC will be changed again by the visiting nurse on and probable areturn appointment on Monday. We will check the CAT scan as I said before. We thank you for the opportunity to participate in this patient's care. Dictated by: Prince Moise M.D. Signing Clinician: Prince Moise M.D. Dictated: 11/21/2022 03:56:01 Transcribed: 11:08:08 AM Transcribed by: BOBV/JOLYNN DocID: [id number] PRELIMINARY REPORT UNLESS MANUALLY/ELECTRONICALLY SIGNED cc: Angelo Kent [address] [place], [address] Patient Care team information Care Team Personnel Name: Carissa Morales LPN Position: S RN Member Role: Primary Care Nurse Name: Merlin Horn RN Position: S RN Member Role: Primary Care Nurse Name: Raúl Kirk RN Position: S RN Member Role: Primary Care Nurse Name: Angelo Mercado Position: Reference Physician Member Role: PCP Address: Address: [address] [facility] [address] [place] [address]- Name: Teofilo Wilks RN Position: S RN Member Role: Primary Care Nurse Name: Stefania Mariee LPN Position: S RN Member Role: Primary Care Nurse Name: Laura Grover RN Position: S RN Member Role: Primary Care Nurse Name: Roxana Mackey Position: [facility] RN Member Role: Primary Care Nurse Name: Alena LEA, Nick Position: Nancy Renal MD Member Role: Lifetime Consulting Physician Address: Address: [address] [place] [address] [address] [facility] [place] [address]- Name: Tiffany Mahajan RN Position: Nancy RN Member Role: Primary Care Nurse Care Team Related Persons Name: CASIMIRO DAVIS Address: home [address] [place] [address] Name: NO DUNN Address: home
--- OUTSIDE RECORDS SUMMARY | 2023-02-08 09:20 | XMS_ITS | Continuity of Care Document ---
Author Name Unknown Organization [facility] ter Address [address] [place] [id number] Care Team Providers Care Operations Director Name Role Phone Angelo Mercado Primary Care Physician [phone] Encounter [facility] Date(s): 11/12/22 - 11/16/[address] [id number]- Discharge Disposition: A-D/C Home Attending Physician: Buster Patrick MD Admitting Physician: Buster Patrick MD Referring Physician: Not on Staff, Referring [...] opioid drug. Start Date: 09/29/22 Status: Ordered Aspirin Tablet 81 mg, By [...] tablet, 0 Refills, Maintenance,10/13/22 11:53:00 EDT, Tablet, [facility], Partial fill upon patient request if the prescription is for a schedule II opioid drug., 154.9... Start Date: 10/13/22 Stop Date: 10/20/22 Status: Ordered betamethasone topical dipropionate, augmented 0.05% ointment 45 Gm, 0 Refill(s), APPLY A THIN COAT EXTERNALLY AT BEDTIME NEEDED FOR ALLERGIC REACTION FOR 2 WEEKS, THEN EVERY OTHER DAY FOR 2 WEEKS AND THEN TWICE A WEEK, 0 Refills, 11/12/22 18:24:00 EDT, Partial fill upon patient request if the prescription is... Start Date: 11/12/22 Status: Ordered BuPROPion (Eqv-Wellbutrin SR) 150 mg/12 [...] opioid drug. Start Date: 11/12/22 Status: Ordered linezolid 600 mg oral tablet = 600 mg, By Mouth, Every 12 hours, Stop 11/21 after PM dose, # 11 tablet, 0 Refills, Acute 11/21/2320:00:00 EDT, 11/16/22 12:48:00 EDT, Tablet, [facility], Partial fill upon patient request if the prescription is for a schedule II opioi... Start Date: 11/16/22 Stop Date: 11/21/22 Status: Ordered Lipitor 80 mg oral tablet 1 tablet = 80 mg, By Mouth, Daily at bedtime, # 30 tablet, 0 Refills, Maintenance, 11/12/22 11:52:00 EDT, Tablet, [facility], Partial fill upon patient request if the prescription is for a schedule II opioid drug., 154.94, cm, 10/19/22 1... Start Date: 11/12/22 Status: Ordered loratadine 10 mg oral tablet 10 mg, 1, tablet, By Mouth, Daily, # 30 tablet, Refills 0, Maintenance, 09/29/22 22:14:00 EDT, Partial fill upon patient request if the prescription is for a schedule II opioid drug. Start Date: 09/29/22 Status: Ordered Multivitamin Tablet 1 tablet, By Mouth, Daily, 0 Refills, Maintenance, 10/13/22 11:55:00 EDT, Tablet, Partial fill uponpatient request if the prescription is for a schedule II opioid drug. Start Date: 10/13/22 Status: Ordered Probiotic + Colostrum By Mouth, [...] opioid drug. Start Date: 11/12/22 Status: Ordered Problem List Condition Confirmation Course [...] Active 1Problem added by Discern Expert Results Orders for Microbiology Reports Name Date Fungal Culture, Nonrespiratory 11/14/22 Anaerobic Culture 11/14/22 Anaerobic Culture 11/14/22 Anaerobic Culture 11/14/22 Fungal Culture, Nonrespiratory 11/14/22 Fungal Culture, Nonrespiratory 11/14/22 Tissue Culture w/ Gram Smear (TISSUE/BIO PSY CULT.) 11/14/22 Wound Deep Culture w/ Gram Smear 11/14/22 Wound Deep Culture w/ Gram Smear 11/14/22 Blood Culture 11/12/22 Microbiology Reports (Most Recent Ten) TEST:Anaerobic Culture STATUS:Unauthenticated BODY SITE: SOURCE:SWAB1 COLLECTED DATE/TIME:11/14/22 8:15 PM Anaerobic Culture SPECIMEN DESCRIPTION : SWAB STERNUM SPECIAL REQUESTS : NONE CULTURE : NO ANAEROBES ISOLATED SO FAR. REPORT STATUS : PRELIMINARY REPORT TEST:Anaerobic Culture STATUS:Unauthenticated BODY SITE: SOURCE:WOUND COLLECTED DATE/TIME:11/14/22 8:15 PM Anaerobic Culture SPECIMEN DESCRIPTION : WOUND STERNUM SPECIAL REQUESTS : NONE CULTURE : NO ANAEROBES ISOLATED SO FAR. REPORT STATUS : PRELIMINARY REPORT TEST:Anaerobic Culture STATUS:Unauthenticated BODY SITE: SOURCE:SWAB1 COLLECTED DATE/TIME:11/14/22 8:15 PM Anaerobic Culture SPECIMEN DESCRIPTION : SWAB STERNUM SPECIAL REQUESTS : NONE CULTURE : NO ANAEROBES ISOLATED SO FAR. REPORT STATUS : PRELIMINARY REPORT TEST:Tissue/Biopsy Culture STATUS:Auth (Verified) BODY SITE: SOURCE:Tissue COLLECTED DATE/TIME:11/14/22 8:15 PM Tissue/Biopsy Culture SPECIMEN DESCRIPTION : TISSUE STERNUM SPECIAL REQUESTS : NONE GRAM STAIN : 1+ WHITE BLOOD CELLS NO ORGANISMS SEEN CULTURE : NO GROWTH 2 DAYS REPORT STATUS : FINAL 11/17/2022 TEST:Deep Wound Culture STATUS:Auth (Verified) BODY SITE: SOURCE:SWAB1 COLLECTED DATE/TIME:11/14/22 8:15 PM Deep Wound Culture SPECIMEN DESCRIPTION : SWAB STERNUM SPECIAL REQUESTS : NONE GRAM STAIN : 1+ TISSUE CELLS NO ORGANISMS SEEN CULTURE : NO GROWTH 2 DAYS REPORT STATUS : FINAL 11/17/2022 TEST:Deep Wound Culture STATUS:Auth (Verified) BODY SITE: SOURCE:SWAB1 COLLECTED DATE/TIME:11/14/22 8:15 PM Deep Wound Culture SPECIMEN DESCRIPTION : SWAB STERNUM SPECIAL REQUESTS : NONE GRAM STAIN : 1+ POLYMORPHONUCLEAR LEUKOCYTES NO ORGANISMS SEEN CULTURE : NO GROWTH 2 DAYS REPORT STATUS : FINAL 11/17/2022 TEST:Fungal Culture, Non-Respiratory STATUS:Unauthenticated BODY SITE: SOURCE:SWAB1 COLLECTED DATE/TIME:11/14/22 8:15 PM Fungal Culture, Non-Respiratory SPECIMEN DESCRIPTION : SWAB STERNUM SPECIAL REQUESTS : NONE DIRECT EXAM : NO FUNGAL ELEMENTS OBSERVED REPORT STATUS : PRELIMINARY REPORT TEST:Fungal Culture, Non-Respiratory STATUS:Unauthenticated BODY SITE: SOURCE:SWAB1 COLLECTED DATE/TIME:11/14/22 8:15 PM Fungal Culture, Non-Respiratory SPECIMEN DESCRIPTION : SWAB STERNUM SPECIAL REQUESTS : NONE DIRECT EXAM : NO FUNGAL ELEMENTS OBSERVED REPORT STATUS : PRELIMINARY REPORT TEST:Fungal Culture, Non-Respiratory STATUS:Unauthenticated BODY SITE: SOURCE:WOUND COLLECTED DATE/TIME:11/14/22 8:15 PM Fungal Culture, Non-Respiratory SPECIMEN DESCRIPTION : WOUND STERNUM SPECIAL REQUESTS : NONE DIRECT EXAM : NO FUNGAL ELEMENTS OBSERVED REPORT STATUS : PRELIMINARY REPORT TEST:Blood Culture STATUS:Unauthenticated BODY SITE: SOURCE:Blood COLLECTED DATE/TIME:11/12/22 7:01 PM Blood Culture SPECIMEN DESCRIPTION : BLOOD NO SITE SPECIAL REQUESTS : NONE CULTURE : NO GROWTH 4 DAYS REPORT STATUS : PRELIMINARY REPORT Radiology Reports * Exam Date Time Procedure Performing Provider Status 11/13/22 12:[address] Chest W/ Contrast Ella Newman; Guero (Verified) Notes: (CT Chest W/ Contrast) Reason For Exam: Sternal Wound infection;Infection RESULT: CT Chest W/ Contrast CT Chest W/ Contrast INDICATION: Reason: Infection; Sternal Wound infection; Clinical Question(s): Abscess Empyema; Order Comment: TECHNIQUE: Helical CT scan of the chest with IV contrast, formatted in 3 planes. 75 cc of [id number] was administered intravenously. Weight-based protocol was performed using automatic exposure control. CTDIvol Body: 13.31 mGy, DLP Body: 470 mGy*cm. COMPARISON: CT chest without contrast 11/09/2022 and 09/30/2022.. FINDINGS: Drop Hammer Set Up Operator view findings, lines and tubes: None. Trachea and airways: Patent without evidence of tracheal or endobronchial lesion. Lungs and pleura: Unchanged 2 mm nodules in the anterior right upper lobe (13 and 17/601) No effusion or pneumothorax. No new focal consolidation. Mild emphysema. Mediastinum and jair: Postsurgical changes in the mediastinum following median sternotomy is not significantly changed from 11/09/2022. No abnormal fluid collection, abscess or enhancement in the anterior mediastinum. No mediastinal or hilar lymphadenopathy. No esophageal abnormality. Heart: Heart is normal in size. No pericardial effusion. Moderate coronary artery calcification. Aorta: Moderate vascular calcification but no aneurysm. Moderate atherosclerotic calcification of the left subclavian artery with moderate-severe stenosis. (16/602). Pulmonary arteries: Normal caliber. No evidence of pulmonary embolism on this study performed without angiographic technique. Chest wall soft tissues: Postoperative changes anterior chest wall following median sternotomy. No abnormal fluid collection or abscess. Diaphragm: Intact. Upper abdomen: No significant abnormality. Bones: No acute abnormality. Status post median sternotomy. No abnormal osseous erosions or features to suggest osteomyelitis are noted on this study. Subacute fracture of the posterior left first rib. Sclerosis involving the lateral left second through fourth ribs is new from 09/30/2022 and most likely reflects subacute healing nondisplaced fractures. IMPRESSION: 1. Postoperative changes of the chest following recent sternotomy. Ill-defined fat stranding in theanterior mediastinum and anterior chest wall soft tissues most likely within expected limits for recent surgery. No abnormal fluid collection, abscess or enhancing soft tissues. No evidence of wound dehiscence or convincing evidence of osteomyelitis. 2. Healing subacute fractures of the left first through fourth ribs. 3. Unchanged 2 mm nodule in the right lung apex. If low risk for malignancy, no routine follow-up. If high risk, optional CT at 12 months. If unchanged, no further follow-up needed per Guidelines forManagement of Incidental Pulmonary Nodules Detected on CT Images: From the Fleischner Society 2017. WSN: [id number] Ordering Physician: Solange Austin Dictated By: Suresh aHll MD Dictated Date/Time: 11/13/22 8:05 am Reviewed By: Suresh Hall MD Signed By: Suresh Hall MD Signed Date/Time: 11/13/22 8:05 am Transcribed By: HEATHER Transcribed Date/Time: 11/13/22 7:46 am Vital Signs Most recent to oldest [Reference Range]: 1 2 3 Height 154 cm (11/16/22 11:31 AM) 154 cm (11/16/22 7:32 AM) 154 cm (11/16/22 4:53 AM) Weight 84.3 kg (11/16/22 4:11 AM) 84.9 kg (11/15/22 6:38 AM) 82.9 kg (11/14/22 11:00 AM) Oxygen Saturation [94-100 %] 100 % (11/16/22 11:31 AM) 98 % (11/16/22 7:32 AM) 98 % (11/16/22 4:53 AM) Pulse Rate [55-90 bpm] 74 bpm (11/16/22 11:31 AM) 90 bpm (11/16/22 7:32 AM) 77 bpm (11/16/22 4:53 AM) Body Mass Index [18.5-24.99 kg/m2] 35.04 kg/m2 *>HHI* (11/12/22 6:21 PM) Blood Pressure [90-138/55-84 mm Hg] 123/66mm Hg (11/16/22 11:31 AM) 124/63mm Hg (11/16/22 7:32 AM) 98/46mm Hg (11/16/22 4:53 AM) Respiratory Rate [16-30 br/min] 18 br/min (11/16/22 11:31 AM) 18 br/min (11/16/22 7:32 AM) 18 br/min (11/16/22 4:53 AM) Temperature [96.8-100.4 DegF] 98.4 DegF (11/16/22 11:31 AM) 98.4 DegF (11/16/22 7:32 AM) 97.7 DegF (11/16/22 4:53 AM) Liters per Minute 6 L/min (11/14/22 8:30 PM) 2 L/min (11/14/22 4:09 AM) Mode of Delivery (Oxygen) Room air (11/16/22 11:31 AM) Room air (11/16/22 7:32 AM) Room air (11/16/22 4:53 AM) Blood pressure sites Arm, left (11/16/22 11:31 AM) Arm, left (11/16/22 7:32 AM) Arm, left (11/16/22 4:53 AM) Temperature Route Oral (11/16/22 11:31 AM) Oral (11/16/22 7:32 AM) Oral (11/16/22 4:53 AM) Dry Weight 83.1 kg (11/12/22 6:21 PM) Weight Obtained Via Bed scale (11/16/22 4:11 AM) Standing scale (11/15/22 6:38 AM) Standing scale (11/12/22 6:21 PM) Dry Weight Obtained Via Standing scale (11/12/22 6:21 PM) Social History Social History Type Response Smoking Status 5-9 cigarettes (betw een 1/4 to 1/2 pack)/day in last 30 days entered on: 07/19/19 Sex Cardiology * Event Display: Cardiac Rhythm Strips Authored Date: Hospital Progress note * Mukul Barrientos: PERFORM, SIGN, VERIFY Jose Branch MD: SIGN, MODIFY Jose Branch MD: MODIFY Event Display: Progress Note Hospital Authored Date: Patient: YOMAIRA DUNN Age: 57 years Sex: Female : 1965 Associated Diagnoses: None Author: Mukul Barrientos [facility] Progress Note Interval History No overnight events or acute complaints Endorsing good PO intake Creatinine stable Plan for discharge today Review of Systems Review of Systems Constitutional: no fever, no night sweats. Respiratory: no shortness of breath. Cardiovascular: no peripheral edema, no chest pain. Gastrointestinal: no abdominal pain. Physical Examination Vital Signs Vitals : VITALS 11/16/2022 11:31 EDT Temperature 98.4 DegF Temperature Route Oral Pulse Rate 74 bpm Respiratory Rate 18 br/min Systolic Blood Pressure 123 mm Hg Diastolic Blood Pressure 66 mm Hg Blood pressure sites Arm, left Mean Arterial Pressure 85 mm Hg Pulse Pressure 57 mm Hg Oxygen Saturation 100 % Mode of Delivery (Oxygen) Room air . General Appearance NAD. HEENT Moist mucous membranes. Respiratory Lungs: CTA. Cardiac Cardiac: no M/G/R. Rhythms: RRR. Abdomen/GI Abdomen: soft. Extremities No edema. Neurologic Alert & oriented x 3 . Results Review 7 Day Results Results Laboratory : LABORATORY 11/16/2022 4:06 EDT WBC 9.0 k/mm3 RBC 3.71 m/mm3 L Hgb 9.8 Gm/dL L Hct 33.1 % L MCV 89.2 femtoliters MCH 26.4 pg L MCHC 29.6 g/dL L Platelet Count 340 k/mm3 RDW-SD 45.8 femtoliters MPV 10.2 femtoliters Nucleated RBC (Automated) 0.0 #/100 WBC'S Abs. NRBC 0.0 k/mm3 Sodium 139 mmol/L Potassium 4.9 mmol/L Chloride 105 mmol/L Bicarbonate Level 28 mmol/L Anion Gap 6 BUN 18 mg/dL Creatinine-Blood 1.3 mg/dL H Estimated GFR Creatinine 49 ML/MIN/1.73 M2 Magnesium 2.0 mg/dL Impression and Plan Yomaira Dunn is a 57-year-old female with PMH of tobacco abuse (40 pack years, currently smoking 1pack a day), family history of early CAD (father at 45 from CAD, mother at 67 from CAD), obesity with BMI of 35, sedentary lifestyle, history of IBS and bloating on pancrelipase, depression, JULIO, back pain, fibromyalgia, and multiple allergies who underwent CABG x 3 on 10/05/2022 and was admitted on 11/12/2022 for a sternal wound infection. 1. BRENNAN Creatinine peaked at 1.5mg/dL, down to 1.3mg/dL today (BL ~ 0.9mg/dL) BRENNAN most likely due to contrast induced nephropathy. May have started as pre- renal in the setting of dehydration as creatinine was already slightly elevated which was then worsened by contrast exposure. Urine studies ordered this admission but never collected. Plan - No need for further IVF - Ok for discharge from renal standpoint Thank you for the courtesy of this consult, RTANE will continue monitoring the patient along with you please do not hesitate to call us with any further questions Mukul Dominguez PA-C [facility] [address] , [address] [facility] * Sarina LEA, Jose Olivier: PERFORM Event Display: Progress Note Hospital Authored Date: Patient seen and examined.. Agree with plan as outlined by Ms.McAtee DAMICO * Cathie Lock RN: SIGN, VERIFY, PERFORM Event Display: Progress Note Hospital Authored Date: Patient: YOMAIRA DUNN Age: 57 years Sex: Female : 1965 Associated Diagnoses: None Author: Cathie Lock RN Findings Problem Related to Alteration in Cardiac Function (new) : Alteration in Cardiac Function/new 11/16/2022 9:00 EDT Alteration in Cardiac Status Related to Other: Sternal wound infection Goals & Outcomes, Cardiac Status Pt will resume/maintain adequate cardiac output, Pt will resume/maintain adequate hemodynamic status, Pt will resume/maintain adequate respiratory function, Pt will resume/maintain intact neuro function, Pt will maintain adequate GI/ function appropriate for pt, Pt will maintain adequate nutrition status Cardiac Interventions Implemented Assess/monitor cardiac status, Assess/monitor neuro status, Assess/monitor respiratory status, Call/Report variances in ECG to provider, Document & Monitor O2 Sats; Administer O2 as ordered, Ensure adequate caloric intake, If no bowel movement in 3 days activate bowel regime, Monitor & document daily weight, Monitor anticoagulation values, Monitor ECG w/ad ministration of antiarrhythmics (CO 13.420), Obtain 12 Lead ECG and CXR as ordered, Prep pt for treatments & procedures, Teach/encourage deep breath & cough exercises, Teach/encourage use of incentive spirometer, Team conversation regarding appropriate level of care, Assess wound(s) for signs and symptoms of infection BH Goals/Interventions, Cardiac Yes Cardiac, Problem Start 11/13/2022 18:31 Reviewed Plan with, Cardiac Status Patient Patient Progression, Cardiac Status Patient progressing according to plan . Nursing Data Cardiac Data. : Cardiac Data. 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 Gastrointestinal Data. : Gastrointestinal Data. 11/16/2022 9:00 EDT Gastrointestinal Symptoms Constipation Last Bowel Movement 11/12/2022 GI WNL except . Genitourinary Data. : Genitourinary Data. 11/16/2022 9:00 EDT WNL . HEENT Data. : HEENT Assessment 11/16/2022 9:00 EDT HEENT, Adult WNL . Integumentary Data. : Integumentary Data. 11/16/2022 9:00 EDT Skin Integrity Not intact Integumentary WNL except . Musculoskeletal Data. : Musculoskeletal Data. 11/16/2022 9:00 EDT Musculoskeletal WNL . Neurological Data. : Neurological Data. 11/16/2022 9:00 EDT Level of Consciousness Full Consciousness Orientated to person, place, time Person, Place, Time, Event Strength LUE 5-Active movement against gravity & full resistance Strength RUE 5-Active movement against gravity & full resistance Strength LLE 5-Active movement against gravity & full resistance Strength RLE 5-Active movement against gravity & full resistance Sensation LUE Intact Sensation RUE Intact Sensation LLE Intact Sensation RLE Intact Movement LUE Spontaneous Movement RUE Spontaneous Movement LLE Spontaneous Movement RLE Spontaneous Gait No disturbance, Steady Pain Interventions PRN medication, Repositioning, Rest Neuro WNL except . Respiratory/Pulmonary Data. : Respiratory/Pulmonary Data. 11/16/2022 9:00 EDT Left Upper Lobe Breath Sounds Clear, Diminished Right Upper Lobe Breath Sounds Clear, Diminished Right Middle Lobe Breath Sounds Clear, Diminished Left Lower Lobe Breath Sounds Clear, Diminished Right Lower Lobe Breath Sounds Clear, Diminished Respiratory distress None Respiratory WNL except . Narrative/Incidental Pt ambulating independently in room, gait steady. Wound vac in place on upper sternum-- pt reporting mild discomfort at vac site. Pt refusing PO linezolid this AM-- educated re use of medication, still refusing. Discussed use of medication this AM in rounds with patient and cardiac surgery team. Pt safety maintained. Call ramirez within reach. Please see CIS for full assessment. . * Martir NOYOLA, Юлия Jones: PERFORM Event Display: Progress Note Hospital Authored Date: Patient: ??DUNN, YOMAIRA ? Age:??57 Years?Sex:??Female?:??1965?? Subjective ?? Hospital Day: 4 Nonhealing sternal wound Procedure:??_sternal wound debridement, washout, wound vac placement (11/14) ?? Overnight events and current issues: No acute overnight Events Change Vanco to Linzeolid Start 11/15 End 11/21 pending OR Cultures Creatine: 1.[address] scan w/ IV contrast revealed no abscess or osteomyelitis in OR liquefactive necrosis and serous drainage Plan for??trial of linezolid today ensure no allergic reactions, then discharge tomorrow with woundvac change on 11/17 ?? Review of Systems Negative Objective ?? Physical Exam ?? Physical Exam General:??NAD Mental Status:??AOx3 Respiratory:??CTA Cardiovascular:?NSR ??S1, S2 ??Regular rate and rhythm Gastrointestinal:??Abdomen soft, non-tender, non-distended Genitourinary:??No wilkinson cath?? Neurologic:?Moves all extremities spontaneously. Skin:??Wound vac to sternal incisiont Musculoskeletal:?Normal range of motion. Results Recent Labs BLOOD COUNT & DIFF WBC 8.0 k/mm3 ()?? 11/15/2022 07:09 RBC 3.62 m/mm3 (Low)?? 11/15/2022 07:09 Hgb 9.9 Gm/dL (Low)?? 11/15/2022 07:09 Hct 32.9 % (Low)?? 11/15/2022 07:09 MCV 90.9 femtoliters ()?? 11/15/2022 07:09 MCH 27.3 pg ()?? 11/15/2022 07:09 MCHC 30.1 g/dL (Low)?? 11/15/2022 07:09 Platelet Count 358 k/mm3 ()?? 11/15/2022 07:09 RDW-SD 46.9 femtoliters ()?? 11/15/2022 07:09 MPV 10.2 femtoliters ()?? 11/15/2022 07:09 Nucleated RBC (Automated) 0.0 #/100 WBC'S ()?? 11/15/2022 07:09 Abs. NRBC 0.0 k/mm3 ()?? 11/15/2022 07:09 ?? CHEM GENERAL Sodium 141 mmol/L ()?? 11/15/2022 07:09 Potassium 4.4 mmol/L ()?? 11/15/2022 07:09 Chloride 106 mmol/L ()?? 11/15/2022 07:09 Bicarbonate Level 27 mmol/L ()?? 11/15/2022 07:09 Anion Gap 8 ()?? 11/15/2022 07:09 Glucose, POC 182 mg/dL (High)?? 11/15/2022 12:50 BUN 20 mg/dL ()?? 11/15/2022 07:09 Creatinine-Blood 1.3 mg/dL (High)?? 11/15/2022 07:09 Estimated GFR Creatinine 47 ML/MIN/1.73 M2 ()?? 11/15/2022 07:09 Osmolality 293 mOs/kg (High)?? 11/14/2022 07:34 Magnesium 2.2 mg/dL ()?? 11/15/2022 07:09 ?? HEME OTHER Hold Lavender Top SPECIMEN DISCARDED AFTER 24 HOURS. ()?? 11/14/2022 07:34 ?? URINE OTHER Est Creatinine Clearance 34.96 mL/min ()?? 11/15/2022 08:59 ? Abnormal Labs ?? BLOOD COUNT & DIFF ??Abs. NRBC ??0.0 k/mm3 () ??11/15/2022 07:09 ??Hct ??32.9 % (Low) ??11/15/2022 07:09 ??Hgb ??9.9 Gm/dL (Low) ??11/15/2022 07:09 ??MCHC ??30.1 g/dL (Low) ??11/15/2022 07:09 ??Nucleated RBC (Automated) ??0.0 #/100 WBC'S () ??11/15/2022 07:09 ??RBC ??3.62 m/mm3 (Low) ??11/15/2022 07:09 ??RDW-SD ??46.9 femtoliters () ??11/15/2022 07:09 ? CHEM GENERAL ??Creatinine-Blood ??1.3 mg/dL (High) ??11/15/2022 07:09 ??Estimated GFR Creatinine ??47 ML/MIN/1.73 M2 () ??11/15/2022 07:09 ??Glucose, POC ??182 mg/dL (High) ??11/15/2022 12:50 ? Note: Critical results are displayed in red. ? LFT?? No qualifying data available. ?? Microbiology ?? COVID-19 (2019 Novel Coronavirus) PCR?? Completed?? Source: Nasal Body Site: Nose Collected Dt/Tm: 11/12/2022 18:58 Last Updated Dt/Tm: 11/13/2022 07:17 ? Assessment/Plan Assessment:? Assessment/Plan ??Ms. Dunn is a 57-year-old lady with medical history of tobacco abuse (40 pack years, currently smoking 1 pack a day), family history of early CAD (father at 45 from CAD, mother at 67 from CAD), obesity with BMI of 35, sedentary lifestyle, history of IBS and bloating on pancrelipase, depression, JULIO, back pain, fibromyalgia, multiple allergies. On 09/29/[address] [facility] for typical anginal pain ruled in for NSTEMI loaded with aspirin and started on heparin drip and transferred to [facility] for cardiac catheterization. On 09/30/22 she underwent cardiac catheterization that revealed 60% iFR positive LAD lesion, 70% LCx, 70% RA lesions. On 10/05/2022 she underwent CABGx3 with Dr. Patrick. Recently, she developed purulent discharge from the proximal aspect of her sternal incision. She was admitted on 11/12/22 for sternal wound infxn. ?? HD #4:??Sternal Wound Infxn POD #1:??sternal wound debridement, washout, wound vac placement (11/14) ?Plan: ?? Sternal Wound Infection ??-ID consult ??-Change??Vanco to Linezolid per ID Start 11/15 End 11/21 ??-CT chest w/o contrast negative for abscess or osteomyelitis (11/13) ??-Follow blood cx; NGTD and OR cultures ?? BRENNAN ??-received IV contrast and on Vancomycin ??-baseline creatinine: 1.0-1.1 ??-creatinine today: 1.3 ??-RTANE consulted, appreciate recs ?? Asthma ??JULIO ??COPD ??hx of Angioedema ??-c/w home inhalers ??-CPAP QHS ??-avoid abx allergies ?? CAD s/p CABGx3 ??-plavix 75 mg qd ??-asa 81 mg qd ??-atorvastatin 81 mg qd ??-BB previously held d/t hypotension ?? Depression ??Anxiety ??Fibromyalgia ??Carpal Tunnel ??Paresthesia of upper extremities ??hx of chronic vertigo ??-Baclofen 5 mg TID ??-Tylenol 975 mg TID ??-c/w home wellbutrin ?? Irritable Bowel syndrome ??-cardiac diet ??-GI Prophylaxis: PPI- Protonix 40 mg Po daily discontinue at discharge ??-home Pancrelipase ??-Vitamins B6 and D3 ??-Probiotic ?? Diet: Cardiac Diet ??DVT ppx: Lovenox ??Dispo: Telemetry ??Code: Full ? Discharge Planning:??next 24-48 hrs ? Note * Alvin RN, Vanessa L.: PERFORM, SIGN, VERIFY Event Display: Cardiac Rehab Note Authored Date: [id number] Patient: YOMAIRA DUNN Age: 57 years Sex: Female : 1965 Associated Diagnoses: None Author: Vanessa Esquivel RN Recommendation and Plan Cardiac Rehab: ttended Cv surgery rounds. See CV surgery note for plan of care.. * Barbie Handley RN: PERFORM Event Display: Discharge/Transfer Note Hospital Authored Date: [id number] Nursing Discharge Note Entered On: 11/16/2022 15:32 EDT Performed On: 11/16/2022 15:31 EDT by Barbie Handley RN Nursing Discharge Note 2 Discharge Time : 11/16/2022 15:32 EDT Discharge Level of Care at Discharge : Homehealth/VNA Discharge VNA/Hospice/Home Care(v001) : [facility] [phone] Discharge Medical Class Central Companies(v001) : [employer] [phone] Patient Left Unit Via : Wheelchair Patient Accompanied Off Unit with : Responsible adult DC Instructions Provided & Signed by Pt : Yes Patient Understands D/C Instructions : Yes Patient Instructions Discharge Signed : Yes Did Pt have Specialty Bed or Wound Vac : No Barbie Handley RN - 11/16/2022 15:31 EDT * Юлия Mcmahan NP: PERFORM, SIGN, VERIFY Event Display: Discharge/Transfer Note Hospital Authored Date: [id number] Patient: YOMAIRA DUNN Age: 57 years Sex: Female : 1965 Associated Diagnoses: None Author: Юлия Mcmahan NP Discharge Information Chief Complaint/Reason for Admission non healing sternal wound Principal Discharge Diagnosis Wound of sternal region. Patient is aware of diagnosis Procedures Cardiac Surgery. sternal wound debridement, washout, wound vac placement (11/14). Attending Consultants Morales Kong MD. Discharge condition: good Compared to admission: improved Functional Status: ambulatory Discharge Disposition Home care with: VNA. Discharge Date 11/16/2022 Admission Date 11/12/2022 Code Status Full Resuscitation. Draft of Summary Completed by: Martir NOYOLA, Юлия Jones. Hospital Course Typed narrative Ms. Dunn is a 57-year-old lady with medical history of tobacco abuse (40 pack years, currently smoking 1 pack a day), family history of early CAD (father at 45 from CAD, mother at 67 fromCAD), obesity with BMI of 35, sedentary lifestyle, history of IBS and bloating on pancrelipase, depression, JULIO, back pain, fibromyalgia, multiple allergies. On 09/29/[address] [facility] for typical anginal pain ruled in for NSTEMI loaded with aspirin and started on heparin drip and transferred to [facility] for cardiac catheterization. On 09/30/22 she underwent cardiac catheterization that revealed 60% iFR positive LAD lesion, 70% LCx, 70% RA lesions. On 10/05/[address] Patrick. Recently, she developed purulent discharge from the proximal aspect of her sternal incision. She was admitted on 11/12/22 for sternal wound infxn. HD #5: Sternal Wound Infxn POD #2: sternal wound debridement, washout, wound vac placement (11/14) Sternal Wound Infection -ID consulted Vac change - Linezolid 600 mg BID per ID Start 11/15 End 11/21 -CT chest w/o contrast negative for abscess or osteomyelitis (11/13) -Follow blood cx; NGTD and OR cultures BRENNAN -received IV contrast and on Vancomycin -baseline creatinine: 1.0-1.1 -creatinine today: 1.3 -RTANE consulted, appreciate recs Asthma JULIO COPD hx of Angioedema -c/w home inhalers -CPAP QHS -avoid abx allergies CAD s/p CABGx3 -plavix 75 mg qd -asa 81 mg qd -atorvastatin 81 mg qd -BB previously held d/t hypotension Depression Anxiety Fibromyalgia Carpal Tunnel Paresthesia of upper extremities hx of chronic vertigo -Baclofen 5 mg TID -Tylenol 975 mg TID -c/w home wellbutrin Irritable Bowel syndrome -cardiac diet -GI Prophylaxis: PPI- Protonix 40 mg Po daily discontinue at discharge -home Pancrelipase -Vitamins B6 and D3 -Probiotic Diet: Cardiac Diet DVT ppx: Lovenox stop on discharge Dispo: Telemetry Code: Full Discharge today per Dr. Salcedo Significant Results Results: Vital signs : VITAL SIGNS SECTION 11/16/2022 11:31 EDT Temperature 98.4 DegF Temperature Route Oral Pulse Rate 74 bpm Respiratory Rate 18 br/min Systolic Blood Pressure 123 mm Hg Diastolic Blood Pressure 66 mm Hg Blood pressure sites Arm, left Mean Arterial Pressure 85 mm Hg Pulse Pressure 57 mm Hg Oxygen Saturation 100 % Mode of Delivery (Oxygen) Room air , Laboratory : LABORATORY 11/16/2022 4:06 EDT WBC 9.0 k/mm3 RBC 3.71 m/mm3 L Hgb 9.8 Gm/dL L Hct 33.1 % L MCV 89.2 femtoliters MCH 26.4 pg L MCHC 29.6 g/dL L Platelet Count 340 k/mm3 RDW-SD 45.8 femtoliters MPV 10.2 femtoliters Nucleated RBC (Automated) 0.0 #/100 WBC'S Abs. NRBC 0.0 k/mm3 Sodium 139 mmol/L Potassium 4.9 mmol/L Chloride 105 mmol/L Bicarbonate Level 28 mmol/L Anion Gap 6 BUN 18 mg/dL Creatinine-Blood 1.3 mg/dL H Estimated GFR Creatinine 49 ML/MIN/1.73 M2 Magnesium 2.0 mg/dL . 60 minutes spent on discharge Discharge Plan Diet/Activity/Patient Education/Follow Up Follow Up with: [facility] follow up with [facility] foryour orientation appointment; Angelo Tejada Within 2 to 5 weeks Please call office for an appointment; Buster Patrick Within 1 to 2 days Please call office for an appointment. . Discharge Disposition Discharge: home with A. Home Health Face to Face I certify that this patient is under my care and that I or an allowed non- physician practitioner working with me, had a [id number] encounter with the patient on this date: 11/16/2022. The encounter with the patient was in whole, or in part, for the following medical condition, whichis the primary reason for home health care: Wound of sternal region. Nursing: Medication management (reconciliation, teaching), Chronic disease management, Wound care and treatment. Physician Signature: Buster Patrick MD . MEDICATION LIST (Selected) Prescriptions Prescribed Lipitor 80 mg oral tablet: 1 tablet = 80 mg, By Mouth, Daily at bedtime, # 30 tablet, 0 Refills, Maintenance, 11/12/22 11:52:00 EDT, Tablet, [facility], Partial fill upon patient request if the prescription is for a schedule II opioid drug., 154.94, cm, 10/19/22 1... baclofen 5 mg oral tablet: 1 tablet = 5 mg, By Mouth, 3 times a day, PRN Pain , Moderate, # 21 tablet, 0 Refills, Maintenance, 10/13/22 11:53:00 EDT, Tablet, [facility], Partial fill upon patient request [...] prescription is for a schedule II opioi... linezolid 600 mg oral tablet: = 600 mg, By Mouth, Every 12 hours, Stop 11/21 after PM dose, # 11 tablet, 0 Refills, Acute 11/21/22 21:00:00 EDT, 11/16/22 12:48:00 EDT, Tablet, [facility] 3, Partial fill upon patient request if the prescription is for a schedule II opioi... Documented Medications Documented Advair HFA 115 mcg [...] each, Topically, Daily, 0 Refills, Maintenance, Patch Vitamin B6 100 mg oral tablet: 90 each, 0 Refill(s), TAKE ONE TABLET BY MOUTH EVERY DAY, 0 Refills,11/12/22 18:25:00 EDT, Partial fill upon patient request if the prescription is for a schedule II opioid drug. acetaminophen 325 mg oral tablet: 975 mg, By Mouth, 4 times a day, PRN, Refills 0, Maintenance, Pain , Mild, 10/13/22 11:52:00 EDT, Partial fill upon patient request if the prescription is for a schedule II opioid drug. betamethasone topical dipropionate, augmented 0.05% ointment: 45 Gm, 0 Refill(s), APPLY A THIN COATEXTERNALLY AT BEDTIME NEEDED FOR ALLERGIC REACTION FOR 2 WEEKS, THEN EVERY OTHER DAY FOR 2 WEEKSAND THEN TWICE A WEEK, 0 Refills, 11/12/22 18:24:00 EDT, Partial fill upon patient request if the pr escription is... desonide 0.05% topical ointment: 60 Gm, 0 Refill(s), APPLY A THIN [...] prescription is for a schedule IIopioid drug. Prescription Given this visit:Prescriptions Linezolid (linezolid 600 mg oral tablet) 600 mg, By Mouth, Every 12 hours, # 11 tablet, 0 Refills, Stop 11/21 after PM dose, [facility], [address] [place] [address] [phone] Next Dose: Patient Instructions Given:No qualifying data available Education Given: Patient Follow-up:Added Follow Up Time Frame Comments Buster Pazrashad 1 to 2 days Please call office for an appointment. Angelo Tejada 2 to 5 weeks Please call office for an appointment [facility] follow up with [facility] for your orientation appointment * Abigail CARDOSO, Alcira: PERFORM, SIGN, VERIFY Event Display: Case Management Discharge Plan Authored Date: [id number] Patient: YOMAIRA DUNN Age: 57 years Sex: Female : 1965 Associated Diagnoses: None Author: Alcira Hayes RN Discharge Plan Case Management Discharge Plan : Case Management Discharge Plan Data 11/16/2022 12:56 EDT Discharge Level of Care at Discharge Homehealth/VNA Discharge VNA/Hospice/Home Care [facility] [phone] Discharge Medical Equipment Companies [employer] [phone] Name of Agency #1 [facility] Name of Agency #1 [facility] Service Categories #1 Long-Term Service Categories #2 Wound Vac * Emmanuelle CARDOSO, Barbie: PERFORM, MODIFY Event Display: Patient Education/Instruction Authored Date: Inpatient Adult Discharge Instructions [address] [address] Name: YOMAIRA DUNN : 1965 Visit: 11/12/2022 18:12:00 Current Date: 11/16/2022 14:19 Account: [id number] Inpatient Adult Discharge Instructions We would like [...] and their families. Surveys are administered by [employer] ?? If further treatment with your primary care physician or another doctor is recommended, it is important for you to keep the appointment. Call your primary care physician or return to the Emergency Department immediately if your condition worsens, fails to improve, or new symptoms develop. If you need to find a doctor, you can call [facility] for a referral at [phone] or toll free at [phone] or log in to [email or web address] ?? You can view and manage your care through the patient portal or by using a health care leann of your choosing. [employer] is a website that allows you to securely view your medical information including your hospital discharge summary, office visit summaries, medications and follow-up visits. You can also request appointments, renew medications, and request access to your medical information using a health care leann of your choosing, or just ask a question. You can enroll at [email or web address] or register during your next office visit. You have been discharged from [facility], Patient Care Unit: M6. If you have any questions regarding these instructions after you leave, please call us and we will be happy to assist you. [facility] Your Care Team Attending Physician Darnell LEA, Buster Consulting Providers Sarina LEA, Jose Kong MD, Linda Daly MD Discharging Providers Martir NOYOLA, Юлия Jones Reason for Admission STERNAL WOUND INFECTION Your Diagnosis Sternal wound infection Wound of sternal region Tests Performed Below is a partial list of the tests performed during your hospitalization. You may have had other tests and procedures not included in this list. Please discuss all test results with your provider. Albumin Level Bilirubin Total + Direct BUN CBC CBC w/ Differential COVID-19 (2019 Novel Coronavirus) PCR Creatinine Electrolytes GLUCOSE POC HEPATIC FUNCTION PANEL HOLD LAVENDER TUBE INR Lactate Level Magnesium Level Osmolality Procalcitonin Level PTT Type and Screen Chest CT W/ Contrast Primary Care Provider Angelo Mercado Advance Directive Health Care Proxy on File Yes - Health Care Proxy Discharge Vitals Temperature: 98.4 DegF Height: 154 cm Pulse Rate: 74 bpm Weight: 84.3 kg Respiratory Rate: 18 br/min Body Mass Index:??35.04 kg/m2??Critical Systolic Blood Pressure: 123 mm Hg Body surface area: 1.89 Diastolic Blood Pressure: 66 mm Hg ?? Oxygen Saturation: 100 % ?? Studies Pending All tests and labs ordered during this hospital stay have been completed unless listed below. Please discuss all pending results with your provider listed above in these instructions. ?? Add On Lab Order Anaerobic Culture BUN Blood Culture Blood Culture #2 CBC CPK Total Only Chloride Urine (Urine Chloride) Complete Urinalysis (UA) Creatinine Creatinine Urine (Urine Creatinine) Electrolytes Fungal Culture, Nonrespiratory Magnesium Level Microalbumin Urine Osmolality Urine (Urine Osmolality) Potassium Urine (Urine Potassium) Protein/Creatinine Ratio Urine RBCs for Surgery Sodium Urine (Urine Sodium) Tissue Culture w/ Gram Smear (TISSUE/BIOPSY CULT.) Type and Screen, Use Hold Lavender UA W/Reflex Culture & Renal Urea Nitrogen Urine (Urine Urea Nitrogen) Wound Deep Culture w/ Gram Smear What to do next Instructions From Your Doctor Discharge Orders Scheduled Follow-Up Appointments 2022 8:45 AM EDT ?? With: Bartolo Garg MD Where: [address] [address]- Status: Pending 2022 9:25 AM EDT ?? With: Bartolo Garg MD Where: [facility] [address] [place] [id number]- Status: Pending You Need to Schedule the Following Appointments Follow Up with??Buster Patrick When:??Within 1 to 2 days Why: Please call office for an appointment. Follow Up with??Angelo Tejada When:??Within 2 to 5 weeks Why: Please call office for an appointment Where: [address] [place] [address]- Business (1) Follow Up with??[facility] Why: follow up with [facility] for your orientation appointment Where: [address] [place] [phone]- Discharge Medications YOMAIRA DUNN :1965 Visit Date:11/12/2022 Medications: Please continue your medications until treatment is completed or stopped by your provider. Medications not listed below should be discontinued. Discuss any questions related to medications with your provider. What How Much When Instructions Next Dose New Linezolid (linezolid 600 mg oral tablet) 600 Milligram Oral Every 12 hours Stop after PM dose ?? Pickup at [facility] 3 Tonight at bedtime Changed Aspirin (Aspirin Tablet) 81 Milligram Oral Daily Tomorrow morning Changed Atorvastatin (Lipitor 80 mg oral tablet) 1 tab(s) Oral Daily at Bedtime Tonight at bedtime Changed Pyridoxine (Vitamin B6 100 mg oral tablet) 90 each, 0 Refill(s), TAKE ONE TABLET BY MOUTH EVERY DAY ?? Tomorrow morning Unchanged Acetaminophen (acetaminophen 325 mg oral tablet) 975 Milligram Oral 4 times a day as needed for Pain , Mild as needed Unchanged Baclofen (baclofen 5 mg oral tablet) 1 tab(s) Oral 3 times a day as needed for Pain , Moderate Duration: 7 Days as needed Unchanged Betamethasone Topical (betamethasone topical dipropionate, augmented 0.05% ointment) 45 Gm, 0 Refill(s), APPLY A THIN COAT EXTERNALLY AT BEDTIME NEEDED FOR ALLERGIC REACTION FOR 2 WEEKS, THEN EVERY OTHER DAY FOR 2 WEEKS AND THEN TWICE A WEEK ?? continue home regimen Unchanged bifidobacterium-lactobacillus (Probiotic + Colostrum) Oral Daily continue home regimen Unchanged BuPROpion (BuPROPion (Eqv-Wellbutrin SR) 150 mg/ 12 hours oral tablet, extended release) Tonight at bedtime Unchanged Clopidogrel (clopidogrel 75 mg oral tablet) 1 tab(s) Oral Daily Tomorrow morning Unchanged Desonide Topical (desonide 0.05% topical ointment) 60 Gm, 0 Refill(s), APPLY A THIN COAT TO AREA EXTERNALLY TWICE A WEEK AT BEDTIME ?? continue home regimen Unchanged Fluticasone-Salmeterol (Advair HFA 115 mcg / 21 mcg) 2 puff(s) Inhalation Twice a day continue home regimen Unchanged Loratadine (loratadine 10 mg oral tablet) 1 tab(s) Oral Daily continue home regimen Unchanged Multivitamin (Multivitamin Tablet) 1 tab(s) Oral Daily continue home regimen Unchanged Pancrelipase (Creon 36,000 units oral delayed release capsule) TAKE ONE CAPSULE BY MOUTH FOUR TIMES A DAY. ADMINISTER WITH MEALS/ SNACKS ?? with dinner [facility] Pharmacy Information [facility] 3: [address], [place] [phone] ?? What How Much When Comments Stop Taking Emollients, Topical (Vashe Topical Solution) 475 Milliliter Topically Every 6 hours as needed for Other Stop Taking Emollients, Topical (Vashe Topical Solution) 475 Milliliter Topically Every 12 hours Stop Taking Miscellaneous Rx 90 each, 0 Refill(s), TAKE ONE CAPSULE BY MOUTH EVERY DAY ?? Test Results Below is a partial list of the most recent Laboratory test results done prior to this discharge. You may have had other tests and procedures not included in this list. Please discuss all test resultswith your provider. Est Creatinine Clearance - 34.96 mL/min (11/15/2022) RBC Available - RE (11/13/2022) RBC Unit ID - [id number] (11/13/2022) Albumin Level (11/13/2022) ???Albumin - 4.2 Gm/dL Bilirubin Total + Direct (11/13/2022) ? ?Bilirubin, Total - 0.2 mg/dL? ?Bilirubin, Direct - <0.2 mg/dL? ?Bilirubin, Indirect - Direct bilirubin is less than the measureable limit. Therefore, indirect BUN (11/16/2022) ???BUN - 18 mg/dL CBC (11/16/2022) ???WBC - 9.0 k/mm3???RBC - 3.71 m/mm3???Hgb - 9.8 Gm/dL???Hct - 33.1 %???MCV - 89.2 femtoliters???MCH - 26.4 pg???MCHC - 29.6 g/dL???Platelet Count - 340 k/mm3???RDW-SD - 45.8 femtoliters???MPV - 10.2 femtoliters???Nucleated RBC (Automated) - 0.0 #/100 WBC'S???Abs. NRBC - 0.0 k/mm3 CBC w/ Differential (11/12/2022) ???WBC - 11.9 k/mm3???RBC - 4.19 m/mm3???Hgb - 11.2 Gm/dL???Hct - 37.2 %???MCV - 88.8 femtoliters???MCH - 26.7 pg???MCHC - 30.1 g/dL???Platelet Count - 397 k/mm3???RDW-SD - 45.2 femtoliters???MPV - 9.8 femtoliters???Nucleated RBC (Automated) - 0.0 #/100 WBC'S???Abs. NRBC - 0.0 k/mm3???Abs. Neut - 7.8 k/mm3???Abs. Lymph - 2.9 k/mm3???Abs. Treasure - 0.7 k/mm3???Abs. Eo - 0.4 k/mm3???Abs. Baso - 0.1 k/mm3???Neut % - 65.2 %???Lymph % - 24.8 %???Treasure % - 5.5 %???Eos % - 3.5 %???Baso % - 0.6 %???Imm Gran - 0.4 %???Abs. Imm Gran - 0.1 k/mm3 COVID-19 (2019 Novel Coronavirus) PCR (11/12/2022) ???COVID-19 PCR Specimen Source - NASAL???COVID-19 PCR Result - NEGATIVE Creatinine (11/16/2022) ???Creatinine-Blood - 1.3 mg/dL???Estimated GFR Creatinine - 49 ML/MIN/1.73 M2 Electrolytes (11/16/2022) ???Sodium - 139 mmol/L???Potassium - 4.9 mmol/L???Chloride - 105 mmol/L???Bicarbonate Level - 28 mmol/L???Anion Gap - 6 GLUCOSE POC (11/16/2022) ???Glucose, POC - 97 mg/dL HEPATIC FUNCTION PANEL (11/12/2022) ???Protein, Total - 7.1 Gm/dL???Albumin - 4.5 Gm/dL???Alkaline Phosphatase - 120 units/L???AST (SGOT) - 17 units/L? ?ALT (SGPT) - 18 units/L? ?Bilirubin, Total - 0.3 mg/dL? ?Bilirubin, Direct - <0.2 mg/dL???Bilirubin, Indirect - Direct bilirubin is less than the measureable limit. Therefore, indirect HOLD LAVENDER TUBE (11/14/2022) ???Hold Lavender Top - SPECIMEN DISCARDED AFTER 24 HOURS. INR (11/13/2022) ???INR - 1.0???Protime (PT) - 10.9 seconds Lactate Level (11/12/2022) ???Lactate - 1.6 mmol/L Magnesium Level (11/16/2022) ???Magnesium - 2.0 mg/dL Osmolality (11/14/2022) ???Osmolality - 293 mOs/kg Procalcitonin Level (11/12/2022) ???Procalcitonin - 0.04 ng/mL PTT (11/13/2022) ???APTT - 25.3 seconds Type and Screen (11/12/2022) ???Blood Type - O Positive???Antibody Screen - Negative Allergies (NKA means No Known Allergies) Doxycyline hyclate 100mg capsule??(vomiting, incontinence, seizures, rash sweeling) Erythromycin and Other Macrolides Causing Adverse Effects in Therapeutic Use??(Diarrhea, sweeling rash) Levaquin??(SPARKS - Headache) Other Food Allergy??(raisins, turnip, peanut butter) Peanuts Zithromax??(Bloody stool, Diarrhea) amoxicillin??(Swelling of throat) ceFAZolin clindamycin??(swelling body) penicillins??(ear, face, throat swelling, rash) sulfonamides??(body swelling, rash) Problems Active Problems??(22) Asthma?? Bartholin cyst?? Borderline high cholesterol?? Carpal tunnel syndrome of left wrist?? COVID-19?? Current smoker?? Depression?? IBS (irritable bowel syndrome)?? Low back pain?? Migraine with aura and without status migrainosus, not intractable?? Moderate episode of recurrent major depressive disorder?? Nephrolithiasis?? Obstructive sleep apnea?? Overactive bladder?? Paresthesia of upper extremity?? Right knee pain?? Severe obesity (BMI 35.0-39.9) with comorbidity?? Sinusitis?? Sternal wound infection?? Tobacco abuse?? Venous insufficiency (chronic) (peripheral)?? Vitamin D deficiency?? Education Materials Below is the list of Educational Leaflet Providered with your Discharge Instructions. Cardiac Surgery Discharge Instructions?? [facility]-Wound Care Wound Vac?? Valuables and Belongings I fully understand and agree that [facility] accepts no responsibility for all my [...] encouraged to send valuables and belongings home. ? Other Discharge Information ?? Wound Assessment?? Wound Assessment?? Wound Vac Location: Upper sternum Dressing Intact Wound: Yes Suction Setting Wound: 125 mm Hg Dressing Change Wound: Physician ?? Case Management Discharge Plan?? Discharge Plan?? Discharge Agency Information?? Discharge Level of Care at Discharge: Homehealth/VNA Name of Agency #1: [facility] Discharge Rx Program: Discharge Prescription Program Name of Agency #1: [facility] Discharge Rx Program: Discharge Prescription Program Service Categories #1: Long-Term Discharge VNA/Hospice/Home Care: [facility] [phone] Service Categories #2: Wound Vac Discharge Medical Equipment [employer]: [employer] [phone] ? Pulmonary Rehab Status?? Pulmonary Rehab Discharge Status?? CPAP/BiPAP Mask Type: Full CPAP/BiPAP Mask Size: Medium Respiratory Rate: 18 br/min Discharge Medical Equipment [employer]: [employer] [phone] ? Common Emergency Awareness Tips IS IT A [...] are strongly encouraged to quit. Please call [facility] [employer] at [phone] or [phone] ([phone]) or log in to [email or web address] for referrals to smoking cessation programs. ?? 579 Suicide & Crisis Lifeline is available 19/12 if you or someone you know needs to find a reason to keep living. By calling 071 you'll be connected to a skilled, trained counselor at a crisis center in your area. INPATIENT DISCHARGE INSTRUCTIONS SIGNATURE PAGE YOMAIRA DUNN Location:[facility] Registration Date and Time:11/12/2022 18:12 EDT Primary Care Physician: Angelo Mercado, Attending Physician: Buster Patrick MD, I YOMAIRA DUNN, have received the above patient education materials/instructions and have verbalized understanding. If ambulance or transport services are being used I further acknowledge being given a choice of service. ?? If you need to contact me, please call me at this number: . Patient/Collar Separator Name: Patient/Collar Separator Signature: Relationship to Patient: Witness Name/Signature: Date: * Юлия Mcmahan NP: PERFORM, SIGN, VERIFY Lazaro CARDOSO, Isamar La: SIGN Event Display: Patient Education Handout Authored Date: [id number] * Barbie Handley RN: PERFORM Event Display: Patient Education Leaflets Authored Date: Cardiac Surgery Discharge Instructions ?? 605 Patient Education Materials Cardiac Surgery Discharge Instructions ?? Here is [...] New onset nausea, vomiting or diarrhea. ??? New rash, cough, dizziness, leg cramps, or blurred vision. ??? Any bleeding or swelling at the incision site or if a hard lump forms. ??? Any drainage, redness, tenderness, or edges pulling apart at your surgical incision site. ??? A weight gain of more than 2-3 pounds in one day or 5 pounds in 1 week. ??? Worsening ankle swelling or leg pain ??? Pain in calf that becomes worse when pointing toe up to head ??? Sharp pain when taking a deep breath ??? Urinary tract infection: frequent urination, burning with urination, or urgency to urinate. ??? Extreme Fatigue ?? Call 911 if: ??? You develop a new onset of weakness, numbness, loss of vision, slurred speech or any concern for a stroke or mini stroke. ??? If you develop numbness, tingling, loss of sensation, and or coolnessto your arms or legs. ??? Fainting, confusion, or disorientation. ??? Sudden, severe headache. ??? If you develop chest pain or discomfort that is not relieved with rest ??? If profuse bleeding (doesnot stop in 30 minutes) occurs, hold pressure to the site and call 911, do not drive yourself to the nearest hospital. ??? Bright red color in your stool. ??? Coughing or vomiting up bright red blood. ??? Heart rate faster than 150 beasts/minute with shortness of breath or new palpitations. ??? Severe abdominal pain ? ? Extreme weakness and/or chills often associated with fever >101??. ?? Follow Up: ?? A follow up appointment should be made with your doctors. If you do not have appointments scheduled, make them when you get home from the hospital. Follow up care is important; it is strongly encouraged that you to keep your appointments. ??? Cardiac Surgery Health Care Provider in 7 to 14 days or as directed. ??? Primary Care Provider in 2-5 weeks or as directed. ??? Primary Planting Machine Crewman in 2-5 weeks or as directed. ??? Cardiac Rehabilitation: Arrangements for cardiac rehabilitation enrollment will be made during your 1???2-week follow-up appointment with your cardiac surgery health care provider if an appointment was not made for you prior to discharge. If you have any questions, please call the Cardiac Surgery office at [phone]. ? Bathing: ??? Shower daily with a gentle soap allowing shower water to rinse soap off. ??? Gently pat incisions dry with a clean towel. ??? You may need assistance with showering the first few days. ??? If youare unsteady on your feet use a shower chair. ??? Do not take a tub bath until all scabs have healed on all incisions. ??? Do not use creams, lotions, or ointments on your incisions. ??? Wear clean clothing every day. ??? Avoid holding pets and children close to your bare chest. ??? Women: Wear a clean bra daily that you can put on without reaching your arms behind your back. ?? Incision Care: It is normal to see bruising and areas of hardness in your leg incisions (a camera was used to remove the vein there); you can elevate the leg, wear the compression stockings given to you or KEVIN bandages to help reduce swelling. ? ? Look at your incision sites (chest wall, legs, arms & groins) every day until they are completely healed. ??? Check your incisions daily for drainage, redness, increased tenderness, or edges pulling apart. ??? Keep your incisions clean and dry. ?? Activity ??? Imagine there is a tube around your upper body. You can lift, push, and raise your arms if you remain in the tube. ??? Move arms freely if not holding items. ??? Use both arms, keeping them closeto the body with elbows in when lifting pushing, pulling, getting out of bed, or standing from a chair. ??? Stop an activity if you experience discomfort or hear a clicking/popping sound. ??? When reaching behind with one arm for self-care such as toileting rotate from the waist keeping elbows close to the body. ??? Hug your chest with a clean pillow when coughing, laughing, or sneezing. ??? Gradually increase your activity. This will [...] ??? Wear elastic stockings for four weeks after you return home.??? Put elastic stocking on in the morning and remove them at bedtime. ??? Female patients should wear a soft supportive bra without under wires to prevent breast from pulling on incision. ?? Driving ??? Do not drive for at least 3 weeks after surgery or until your surgeon approves driving during the postoperative visit. ??? Once approved to drive, start with short distances, and have a passengerwith you. ??? Do not drive if you are still taking any prescribed medication for pain or a muscle relaxer. ??? ALWAYS wear a seatbelt as a yard driver and a passenger. ??? DO NOT disable airbags. ??? Position the passenger seat as far back as possible.?Diet ??? Use healthy cooking methods: Bake, Boil, Steam, Broil. ??? Eat mostly plant- based diet; fruits and vegetables, whole grains [...] in moderation. ??? Reduce sodium and salt intake: Avoid adding salt and choose products with less than 140 mg sodium per serving. Use herbs and spices to flavor your food. Daily sodium intake should be less than 3000mg. ??? Avoid processed foods, fried foods and foods that contain trans-fat. ??? Daily protein intake goal is 80-110 grams. ?? Smoking If you have a history of smoking , it is advised that you quit. smoking is a major risk factor for coronary artery disease and heart attack. Smoking cessation is essential for recovery and long-term health . ?? We can offer smoking cessation resources, including nicotine replacement therapy, medication therapy, and referral to behavioral counseling or support groups. ?? Lowering your cholesterol Diet and exercise may not lower your cholesterol enough. Cholesterol medicines may help prevent further cholesterol build up in the arteries. Talk to your healthcare provider about taking medicine for high cholesterol. ? High blood pressure and diabetes ?? If you have high blood pressure or diabetes, continue with your prescribed treatments. These healthproblems, if not controlled can put you at risk for having a heart attack, stroke, or other vascular events. ?? Stress Learn to manage stress with ways that fit your needs. Some stress relieving activities include meditation, deep breathing techniques and exercise. Stress that isn???t managed can prolong healing and cause other health problems. Talk to your healthcare provider if you need additional resources to manage stress. ?? Feelings?? You may also be impatient to return to your regular activities and may feel frustrated with your recovery. Remember that your body needs time to heal. In fact, healing takes energy and depletes your strength. You will have good days and bad days, and you may feel depressed and angry about how long your recovery seems to take. Talk to your family or friends about your feelings and try to remember that you will get better. As you get stronger and more rested, you will feel more positive about your progress. One way to avoid feeling depressed is to maintain as normal a routine as possible. Get up at your usual time and bathe or shower. Get dressed; don???t stay in your nightclothes all day. Take a rest in the morning and afternoon, and when you feel tired. Get a good night???s sleep. If yourdepression doesn???t improve, talk to your doctor. Feelings ?? Valve Surgery Instructions ?? You will receive a booklet and card specific to the valve you received. This card should be always carried with you. Your doctor may prescribe an anticoagulant medication to prevent blood clots that could lead to a stroke. Your doctor may prescribe an antibiotic.?? This helps prevent infection that could scar and destroy your heart valve. Your will be instructed when to take this medication, suchas before dental work, surgery, or medical procedures. ?? Please refer to the Understanding & Preparing for Heart Surgery booklet. ?? If you are being discharged on Coumadin ??/warfarin, please refer to the H&V Anticoagulation Patient Education booklet. ?? Discharge Instruction Video ? * Barbie Handley RN: PERFORM Event Display: Patient Education Leaflets Authored Date: [id number] BVS-Wound Care Wound Vac ?? 75 Vascular Wound Care Wound Vac ?? Wound VAC at 120 mmHg continuous suction. Next vac change due in 2 days. Please wet sponge to assist with removal of sponge. May apply adaptic to wound base prior to applying new VAC sponge to assistwith removal of sponge for next dressing change. If VAC dressing is interrupted for >2hrs, please convert to wet-dry dressing. VAC sponge will need to be applied ALAN. ? * Isamar Willis RN: PERFORM, SIGN, VERIFY Event Display: Cardiac Rehab Note Authored Date: [id number] Patient: YOMAIRA DUNN Age: 57 years Sex: Female : 1965 Associated Diagnoses: None Author: Isamar Willis RN Patient is a re-admit cardiac surgery patient, with sternal wound infection. Patient was seen todayprior to debridement surgery. Patient is walking independently, all questions answered regarding home care and move in tube. Patient has been progressing well at home other than wound infection. Patient has family support at home. Patient is set up with cardiac rehab at [facility]. She was awaiting insurance approval and they will be calling her with her orientation appointment. Will sign off on patient. Please page [phone] with any questions or changes in patients plan of care or condition. Patient Care team information Care Team Personnel Name: Carissa Morales LPN Position: S RN Member Role: Primary Care Nurse Name: Merlin Horn RN Position: S RN Member Role: Primary Care Nurse Name: Raúl Kirk RN Position: S RN Member Role: Primary Care Nurse Name: Angelo Mercado Position: Reference Physician Member Role: PCP Address: Address: [address] [place] [address] [address] [place], [place] [address] Name: Teofilo Wilks RN Position: S RN Member Role: Primary Care Nurse Name: Stefania Mariee LPN Position: S RN Member Role: Primary Care Nurse Name: Laura Grover RN Position: S RN Member Role: Primary Care Nurse Name: Roxana Mackey Position: S RN Member Role: Primary Care Nurse Name: Nick Carvajal MD Position: [facility] Renal MD Member Role: Lifetime Consulting Physician Address: Address: [address] [place] [address] [address] [facility], [place] [address]- Name: Tiffany Mahajan RN Position: S RN Member Role: Primary Care Nurse Care Team Related Persons Name: CASIMIRO DAVIS Address: [address] [place] [address] Name: NO DUNN Address: home
--- OUTSIDE RECORDS SUMMARY | 2023-02-08 09:20 | XMS_ITS | Continuity of Care Document ---
Author Name Unknown Organization [facility] Cristin [facility]ierrez [facility] Address [address] [place] [address]- Care Team Providers Care Beater Worker Helper Name Role Phone Angelo Mercado Primary Care Physician [place] [facility] [place] 12[place]20 [facility] [address] [place] [address]- Allergies, Adverse Reactions, Alerts Substance Reaction Severity [...] 09/03/20 16:40:00 EDT, Route to Pharmacy Electronically, [facility], Partial fill upon [...] EDT, Route to Pharmacy Electronically, [facility], Partial fillupon patient request if [...]
--- OUTSIDE RECORDS SUMMARY | 2023-02-08 09:20 | XMS_ITS | Continuity of Care Document ---
Author Name Unknown Organization [facility] Cardiac [facility]any Address [address] [place] [address]- Care Team Providers Care Sales Representative Livestock Name Role Phone Angelo Mercado Primary Care Physician Encounter [facility] Date(s): 11/09/22 - 11/16/[address] [facility] Cardiac Surgery [address] [place] [address] Attending Physician: Buster Patrick MD Referring Physician: Angelo Mercado Allergies, Adverse Reactions, Alerts Substance Reaction Severity Status clindamycin swelling body Active amoxicillin Swelling of throat Active Zithromax Bloody stool Diarrhea Active Levaquin SPARKS - Headache Active Peanuts Active Erythromycin and Other Macro lides Causing Adverse Effects in Therapeutic Use Diarrhea sweeling rash Active Other Food Allergy raisins, turnip, peanut butter Active ceFAZolin 1 Active penicillins ear, face, throat sw elling rash Active sulfonamides body swelling rash Active Doxycyline hyclate 100mg capsule vomitin g, incontinence seizures rash sweeling Active 1lip and tongue sweling Medications acetaminophen [...] tablet, 0 Refills, Maintenance,10/13/22 11:53:00 EDT, Tablet, [facility], Partial fill upon patient [...] Acute 11/21/2320:00:00 EDT, 11/16/22 12:48:00 EDT, Tablet, [facility], Partial fill upon patient [...] recent to oldest [Reference Range]: 1 Height 154.94 cm (11/09/22 2:00 PM) Oxygen Saturation [94-100 %] 99 % (11/09/22 2:00 PM) Pulse Rate [55-90 bpm] 85 bpm (11/09/22 2:00 PM) Blood Pressure [90-138/55-84 mm Hg] 132/ 72mm Hg (11/09/22 2:00 PM) Temperature [96.8-100.4 DegF] 98.7 DegF (11/09/22 2:00 PM) Mode of Delivery (Oxygen) Room air (11/09/22 2:00 PM) Blood pressure sites Arm, left (11/09/22 2:00 PM) Temperature Route Oral (11/09/22 2:00 PM) Social History Social History Type Response Smoking Status 5-9 cigarettes (betw een 1/4 to 1/2 pack)/day in last 30 days entered on: 07/19/19 Sex Cardiac surgery Outpatient Note * Stacie Barnhart RN: PERFORM Event Display: Cardiac Surgery Note Office Authored Date: [id number] Patient entered questions related to sternal wound care into [employer]. Patient called and advisedto keep sternal wound covered with covered DSD while draining. Bacitracin to be used 2-3 times daily. Patient does not have fevers or increased redness or pain. Patient advised to call cardiac surgery practice if drainage increases, wound becomes red, she has fevers or increased pain. * Buster Patrick MD: PERFORM Event Display: Cardiac Surgery Note Office Authored Date: [id number] Patient: ??YARA HUMPHRIES ? Age:??57 Years?Sex:??Female?:??1965?? CARDIAC SURGERY OFFICE NOTE DATE:?11/09/22 57 year old female who underwent triple coronary artery bypass grafting on 10/05/22 by me for coronary artery occlusive disease, enrolled in LIAM-W trial, presents today for a follow up visit with complaint of upper sternal incision pain with serous drainage. CT chest done prior to visit shows postop changes no collection. Patient??had been doing well but pain started to worsen several days ago.??Right leg pain s/p harvest site persists. ??Denies fever, pain, erythema, drainage, numbness, or other wound related complications. ? VITAL SIGNS: ??afebrile, blood pressure 120/70 mmHg, heart rate??85 beats per minute, oxygen saturation 98% on room air at rest. ? PHYSICAL EXAMINATION: ? CONST: The patient is alert, oriented and pleasantly conversant. EYES:??Anicteric, nl conjunctivae, EOM intact ENT:??Nl oropharynx NECK:??No evidence of JVD or HJR. Carotid impulses and upstroke normal bilaterally, no carotid bruits?? CV:??Regular rhythm, no??murmur; No aortic pulsation or aortic bruits. RESP:??Normal respiratory effort,??clear to auscultation bilaterally GI:??Soft, non-tender and non-distended??bowels sounds normoactive, no abdominal bruits EXT: no lower extremity edema, no cyanosis SKIN:??No rash, skin warm and dry.?? NEURO:?Alert and oriented x 3, CN 2-12 grossly intact? Surgical Wounds: Chest: The sternum is stable. ??The sternal incision is well approximated without erythema. Upper 0.5cm of sternal incision with scab, no drainage,??no fluctuance, some tenderness topalpation, attempted probing however no drainage encountered.?The chest tube sites are healing well. ??The??harvest sites are??well approximated without erythema or drainage.? A/P: The patient is a 57 year old female who underwent triple coronary artery bypass grafting on 10/05/22 by me doing well postoperatively. Pt had all questions answered,??and CT chest does not appearto indicate she has a sternal infection. Unclear the etiology of her pain, however could be musculoskeletal or the nerves healing. Will monitor with topical??abx ointment and continuing vashe. Considered??starting??PO abx as prophylaxis, however she??has significant allergies to PO abx. Will monitor and if drainage persists or turns purulent, will return sooner, otherwise plan for f/u wound checkin 1 week.??She will continue LIAM-W f/u with our coordinator. She was advised to continue to follow up with cardiology and start cardiac rehab soon. She knows to follow up as needed if any wound issues were to come about.??F/u 1 week for wound check. ? Buster Patrick MD [facility] Cardiac Surgery?? [address] [facility] [address] [facility], [address] [place] [address] Office: [phone] Patient Care team information Care Team Personnel Name: Carissa Morales LPN Position: S RN Member Role: Primary Care Nurse Name: Merlin Horn RN Position: S RN Member Role: Primary Care Nurse Name: Raúl Kirk RN Position: S RN Member Role: Primary Care Nurse Name: Angelo Mercado Position: Reference Physician Member Role: PCP Address: Address: [address] [place] [address]- Name: Teofilo Wilks RN Position: S RN Member Role: Primary Care Nurse Name: Stefania Mariee LPN Position: S RN Member Role: Primary Care Nurse Name: Laura Grover RN Position: S RN Member Role: Primary Care Nurse Name: Roxana Mackey Position: S RN Member Role: Primary Care Nurse Name: Alena LEA, Nick Position: Nancy Renal MD Member Role: Lifetime Consulting Physician Address: Address: [address] [place] [address] [address] [facility] [place] [address]- Name: Tiffany Mahajan RN Position: S RN Member Role: Primary Care Nurse Care Team Related Persons Name: CASIMIRO DAVIS Address: home [address] [place] [address] Name: NO HUMPHRIES Address: home
--- OUTSIDE RECORDS SUMMARY | 2023-02-08 09:20 | XMS_ITS | Continuity of Care Document ---
Author Name Unknown Organization [facility] Address [address] [place] [address]- Care Team Providers Care Lace Machine Operator Name Role Phone Angelo Mercado Primary Care Physician Encounter [facility] [place] Date(s): 11/28/22 - 12/05/[address] [facility] Cardiac Surgery [address] [place] [address] Attending Physician: Darnell LEA, Buster Referring Physician: Ari Tejada MD Allergies, Adverse Reactions, Alerts Substance Reaction Severity Status clindamycin swelling body Active amoxicillin Swelling of throat Active ceFAZolin 1 Active penicillins ear, face, [...] oldest [Reference Range]: 1 Height 154 cm (11/28/22 2:57 PM) Weight 84.09 kg (11/28/22 2:57 PM) Oxygen Saturation [94-100 %] 99 % (11/28/22 2:57 PM) Pulse Rate [55-90 bpm] 81 bpm (11/28/22 2:57 PM) Body Mass Index [18.5-24.99 kg/m2] 35.46 kg/m2 *>HHI* (11/28/22 2:57 PM) Blood Pressure [90-138/55-84 mm Hg] 122/ 70mm Hg (11/28/22 2:57 PM) Respiratory Rate [16-30 br/min] 24 br/mi n (11/28/22 2:57 PM) Temperature [96.8-100.4 DegF] 98.5 DegF (11/28/22 2:57 PM) Mode of Delivery (Oxygen) Room air (11/28/22 2:57 PM) Blood pressure sites Arm, left (11/28/22 2:57 PM) Temperature Route Oral (11/28/22 2:57 PM) Weight Obtained Via Patient/family state d (11/28/22 2:57 PM) Social History Social History Type Response Smoking Status Former smoker, quit more than 30 days ago entered on: 11/24/22 Sex Cardiac surgery Outpatient Note * Darnell LEA, Buster: PERFORM Event Display: Cardiac Surgery Note Office Authored Date: [id number] Patient: ??, YARA ? Age:??57 Years?Sex:??Female?:??1965?? CARDIAC SURGERY OFFICE NOTE DATE:??11/28/22?? 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 Wound vac removed and aquacel dressing had been placed by [facility]. Pt does notwant wound vac again.??Denies fever, pain, erythema, drainage, numbness, or other wound related complications.? VITAL SIGNS: afebrile, blood pressure??122/70??mmHg, heart rate 81??beats per minute, oxygen saturation 99% on room air at rest.? PHYSICAL EXAMINATION:? [...] non-distended bowels sounds normoactive, no abdominal bruits EXT: no lower extremity edema, no cyanosis SKIN: No rash, [...] for abx.??F/u 1 week for wound check. ? Buster Patrick MD [facility] Cardiac Surgery?? [address], [address] [place] [address] Office: [phone] Patient Care team information Care Team Personnel Name: Carissa Morales LPN Position: S RN Member Role: Primary Care Nurse Name: Merlin Horn RN Position: [facility] RN Member Role: Primary Care Nurse Name: Raúl Kirk RN Position: S RN Member Role: Primary Care Nurse Name: Angelo Mercado Position: Reference Physician Member Role: PCP Address: Address: [address] [place], [place] [address] Name: Teofilo Wilks RN Position: S RN Member Role: Primary Care Nurse Name: Stefania Mariee LPN Position: S RN Member Role: Primary Care Nurse Name: Laura Grover RN Position: S RN Member Role: Primary Care Nurse Name: Roxana Mackey Position: S RN Member Role: Primary Care Nurse Name: Nick Carvajal MD Position: [facility] Renal MD Member Role: Lifetime Consulting Physician Address: Address: [address] [facility] [place] [address]- Name: Tiffany Mahajan RN Position: [facility] RN Member Role: Primary Care Nurse Care Team Related Persons Name: CASIMIRO DAVIS Address: home [address] [place] [address] Name: NO HUMPHRIES Address: home
--- OUTSIDE RECORDS SUMMARY | 2023-02-08 09:20 | XMS_ITS | Continuity of Care Document ---
Author Name Unknown Organization [facility] ter Address [address] [place] [address]- Care Team Providers Care Environmental Protection Economist Name Role Phone Angelo Mercado Primary Care Physician Encounter [facility] [place] Date(s): 11/11/20 - 12/26/[address] [address]- Attending Physician: Gianna Rosen MD Admitting Physician: Gianna Rosen MD Referring Physician: Gianna Rosen MD Allergies, Adverse Reactions, Alerts Substance Reaction Severity Status clindamycin swelling body Active amoxicillin Swelling of throat Active Zithromax Bloody stool Diarrhea Active Erythromycin and Other Macro lides Causing Adverse Effects in Therapeutic Use Diarrhea sweeling rash Active penicillins ear, face, throat sw elling rash Active sulfonamides body swelling rash Active Doxycyline hyclate 100mg capsule vomitin g, incontinence seizures rash sweeling Active Levaquin SPARKS - Headache Active Other [...] 16:40:00 EDT, Route to Pharmacy Electronically, [facility], Partial fill upon [...] Gm, 3 Refills, Maintenance, 11/06/20 13:33:00 EDT, [facility], Partial fill upon patient [...] EDT, Route to Pharmacy Electronically, [facility], Partial fillupon patient request if [...]
--- OUTSIDE RECORDS SUMMARY | 2023-02-08 09:20 | XMS_ITS | Continuity of Care Document ---
Author Name Unknown Organization [facility] Address [address], [address] [place] [address]- Care Team Providers Care Railroad Car Checker Name Role Phone Angelo Mercado Primary Care Physician [phone] Encounter [facility] Date(s): 08/14/20 - 09/13/20 [facility] [address], [address], [address] [place] [address]- Allergies, Adverse Reactions, Alerts Substance Reaction Severity [...] 09/03/20 16:40:00 EDT, Route to Pharmacy Electronically, [facility], Partial fill upon patient request if the presc... Start Date: 09/03/20 Status: Ordered Flonase Daily, 0 Refills, Maintenance, 07/19/19 8:37:00 EST Start Date: 07/19/19 Status: Ordered ibuprofen 600 mg oral tablet 600 mg, 1, tablet, By Mouth, Every 6 hours, # 30 tablet, Refills 0, Tot. Refills 0, Acute 10/03/20 0:00:00 EDT, 09/03/20 16:40:00 EDT, Route to Pharmacy Electronically, [facility], Partial fill upon patient request if the prescription is... Start Date: 09/03/20 Stop Date: 10/03/20 Status: Ordered MiraLax oral powder for reconstitution = 17 Gm, By Mouth, Daily, dissolve in water before taking, # 255 Gm, 0 Refills, Acute 10/03/20 0:00:00 EDT, 09/03/20 16:40:00 EDT, REC Powder, [facility], Partial fill upon patient request if the prescription is for a schedule II opioid... Start Date: 09/03/20 Stop Date: 10/03/20 Status: Ordered Tylenol 325 mg oral tablet 650 mg, 2, tablet, By Mouth, Every 4 hours, PRN, # 120 tablet, Refills 0, Tot. Refills 0, Acute 10/03/20 0:00:00 EDT, for pain, 09/03/20 16:40:00 EDT, Route to Pharmacy Electronically, [facility], Partial fill upon patient request if [...]
--- OUTSIDE RECORDS SUMMARY | 2023-02-08 09:20 | XMS_ITS | Continuity of Care Document ---
Author Name Unknown Organization [facility] Address [address] [facility], [address]r d Floor, [address] [place] [id number]- Care Team Providers Care Conference Director Name Role Phone Angelo Mercado Primary Care Physician [phone] Encounter [facility] Date(s): 11/06/20 - 12/06/20 [facility] [address], [address], [address] [place] [id number] Attending Physician: James Purdy Admitting Physician: James Purdy Referring Physician: AdmtrJames Allergies, Adverse Reactions, Alerts Substance Reaction Severity Status clindamycin swelling body Active amoxicillin Swelling of throat Active Levaquin SPARKS - Headache Active Other Food Allergy raisins, turnip, peanut butter Active penicillins ear, face, throat sw elling rash Active sulfonamides body swelling rash Active Doxycyline hyclate 100mg capsule vomitin g, incontinence seizures rash sweeling Active Zithromax Bloody stool Diarrhea Active Erythromycin and Other Macro lides Causing Adverse Effects in Therapeutic Use Diarrhea sweeling rash Active Medications Aleve = 220 mg, By [...] 09/03/20 16:40:00 EDT, Route to Pharmacy Electronically, [facility], Partial fill upon patient [...] Gm, 3 Refills, Maintenance, 11/06/20 13:33:00 EDT, [facility], Partial fill upon patient request if [...] EDT, Route to Pharmacy Electronically, [facility], Partial fillupon patient request if [...]
--- OUTSIDE RECORDS SUMMARY | 2023-02-08 09:20 | XMS_ITS | Continuity of Care Document ---
Author Name Unknown Organization [facility] Address [address] [facility], 3r d Floor, [address] [place] [id number]- Care Team Providers Care Lodge Attendant Name Role Phone Angelo Mercado Primary Care Physician Encounter [facility] Date(s): 08/14/20 - 09/13/20 [facility] [address], [address], [address] [place] [address]- Allergies, Adverse Reactions, Alerts Substance Reaction Severity [...] 09/03/20 16:40:00 EDT, Route to Pharmacy Electronically, [facility], Partial fill upon patient request if the presc... Start Date: 09/03/20 Status: Ordered Flonase Daily, 0 Refills, Maintenance, 07/19/19 8:37:00 EST Start Date: 07/19/19 Status: Ordered ibuprofen 600 mg oral tablet 600 mg, 1, tablet, By Mouth, Every 6 hours, # 30 tablet, Refills 0, Tot. Refills 0, Acute 10/03/20 0:00:00 EDT, 09/03/20 16:40:00 EDT, Route to Pharmacy Electronically, [facility], Partial fill upon patient request if the prescription is... Start Date: 09/03/20 Stop Date: 10/03/20 Status: Ordered MiraLax oral powder for reconstitution = 17 Gm, By Mouth, Daily, dissolve in water before taking, # 255 Gm, 0 Refills, Acute 10/03/20 0:00:00 EDT, 09/03/20 16:40:00 EDT, REC Powder, [facility], Partial fill upon patient request if the prescription is for a schedule II opioid... Start Date: 09/03/20 Stop Date: 10/03/20 Status: Ordered Tylenol 325 mg oral tablet 650 mg, 2, tablet, By Mouth, Every 4 hours, PRN, # 120 tablet, Refills 0, Tot. Refills 0, Acute 10/03/20 0:00:00 EDT, for pain, 09/03/20 16:40:00 EDT, Route to Pharmacy Electronically, [facility], Partial fill upon patient request if [...]
--- OUTSIDE RECORDS SUMMARY | 2023-02-08 09:21 | XMS_ITS | Continuity of Care Document ---
Author Name Unknown Organization [facility] Address [address] [place] [id number]- Care Team Providers Care Steel Hanger Name Role Phone Angelo Mercado Primary Care Physician Encounter [facility] [place] Date(s): 12/22/22 - 12/29/22 [facility] [address] [place] [address]- Attending Physician: Buster Patrick MD Referring Physician: Angelo Mercado Allergies, Adverse Reactions, Alerts Substance Reaction Severity Status clindamycin swelling body Active amoxicillin Swelling of throat Active penicillins ear, face, throat sw elling rash Active sulfonamides body swelling rash Active Peanuts Active Doxycyline hyclate 100mg capsule vomitin g, incontinence seizures rash sweeling Active ceFAZolin 1 Active Zithromax Bloody stool Diarrhea Active Levaquin [...] PHARMACY #... Start Date: 12/10/22 Status: Ordered Vitamin B6 100 mg oral [...] oldest [Reference Range]: 1 Height 154 cm (12/23/22 11:03 AM) Oxygen Saturation [94-100 %] 98 % (12/23/22 11:03 AM) Pulse Rate [55-90 bpm] 89 bpm (12/23/22 11:03 AM) Blood Pressure [90-138/55-84 mm Hg] 114/ 72mm Hg (12/23/22 11:03 AM) Temperature [96.8-100.4 DegF] 98.8 DegF (12/23/22 11:03 AM) Mode of Delivery (Oxygen) Room air (12/23/22 11:03 AM) Blood pressure sites Arm, left (12/23/22 11:03 AM) Temperature Route Oral (12/23/22 11:03 AM) Social History Social History Type Response Smoking Status Former smoker, quit more than 30 days ago entered on: 11/24/22 Sex Cardiac surgery Outpatient Note * Catina Townsend RN: PERFORM Event Display: Cardiac Surgery Note Office Authored Date: Pt was seen in office today for sternal wound check/dressing change. Gauze and Aquacel removed, and image was taken of the site. Uploaded to pt's chart. Wound redressed only with gauze. Wound not deep enough to pack with Aquacel. Depth of wound about 0.1 cm, and what appears is dry, keratinized skin. Patient Care team information Care Team Personnel Name: Carissa Morales LPN Position: S RN Member Role: Primary Care Nurse Name: Merlin Horn RN Position: [facility] RN Member Role: Primary Care Nurse Name: Raúl Kirk RN Position: S RN Member Role: Primary Care Nurse Name: Angelo Mercado Position: Reference Physician Member Role: PCP Address: Address: [address] [facility] [address] [place] [address]- Name: Teofilo Wilks RN Position: S RN Member Role: Primary Care Nurse Name: Stefania Mariee LPN Position: S RN Member Role: Primary Care Nurse Name: Laura Grover RN Position: [facility] RN Member Role: Primary Care Nurse Name: Roxana Mackey Position: S RN Member Role: Primary Care Nurse Name: Nick Carvajal MD Position: [facility] Renal MD Member Role: Lifetime Consulting Physician Address: Address: [address] [place] [address] [address] [facility], [place] [address]- Care Team Related Persons Name: CASIMIRO DAVIS Address: home [address] [facility] [facility] [place] [address] Name: NO HUMPHRIES Address: home
--- OUTSIDE RECORDS SUMMARY | 2023-02-08 09:21 | XMS_ITS | Continuity of Care Document ---
Author Name Unknown Organization [facility] Address [address] [place] [address], [address] [place] [address]- Care Team Providers Care Patrol Guard Name Role Phone Angelo Mercado Primary Care Physician [phone] Encounter [facility] Date(s): 07/30/20 - 08/29/20 [facility] [address] [facility], [address] [place] [address]- Allergies, Adverse Reactions, Alerts Substance Reaction Severity [...] 8:37:00 EST Start Date: 07/19/19 Status: Ordered Xopenex Neb, 3 times a [...]
--- OUTSIDE RECORDS SUMMARY | 2023-02-08 09:21 | XMS_ITS | Continuity of Care Document ---
Author Name Unknown Organization [facility] Address [address] [place] [address] [place] [address]- Care Team Providers Care Breading Machine Tender Name Role Phone Angelo Mercado Primary Care Physician [phone] Encounter [facility] Date(s): 12/15/22 - 12/22/22 [facility] [address] [place] [address]- Attending Physician: Darnell LEA, Buster Referring Physician: [...] oldest [Reference Range]: 1 Height 154 cm (12/15/22 4:11 PM) Weight 83.63 kg (12/15/22 4:11 PM) Oxygen Saturation [94-100 %] 100 % (12/15/22 4:11 PM) Pulse Rate [55-90 bpm] 96 bpm *H* (12/15/22 4:11 PM) Body Mass Index [18.5-24.99 kg/m2] 35.26 kg/m2 *>HHI* (12/15/22 4:11 PM) Blood Pressure [90-138/55-84 mm Hg] 120/ 80mm Hg (12/15/22 4:11 PM) Respiratory Rate [16-30 br/min] 20 br/mi n (12/15/22 4:11 PM) Temperature [96.8-100.4 DegF] 97.8 DegF (12/15/22 4:11 PM) Mode of Delivery (Oxygen) Room air (12/15/22 4:11 PM) Blood pressure sites Arm, left (12/15/22 4:11 PM) Temperature Route Oral (12/15/22 4:11 PM) Weight Obtained Via Patient/family state d (12/15/22 4:11 PM) Social History Social History Type Response Smoking Status Former smoker, quit more than 30 days ago entered on: 11/24/22 Sex Cardiac surgery Outpatient Note * Darnell LEA, Buster: PERFORM Event Display: Cardiac Surgery Note Office Authored Date: [id number] Patient: ??, YARA ? Age:??57 Years?Sex:??Female?:??1965?? CARDIAC SURGERY OFFICE NOTE ?? DATE:??12/15/22? 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 Wound vac removed and aquacel dressing had been placed.?? Denies fever, pain, erythema, drainage, numbness, or other wound related complications.? VITAL SIGNS: afebrile, blood pressure??120/80??mmHg, heart rate 96??beats per minute, oxygen saturation 100% on room [...] non-distended bowels sounds normoactive, no abdominal bruits EXT:??no extremity edema, no cyanosis SKIN: No rash, skin warm and dry.?? NEURO: Alert and oriented x 3, CN 2-12 grossly intact? Surgical Wounds: Chest: The sternum is stable. The sternal incision is well approximated without erythema. Upper??2cm??open wound with fibrinous exudate no drainage and healthy granulation.??The chest tube sites are healing well. The harvest sites are well approximated without erythema or drainage.? A/P: The patient is a 57 year old female who underwent triple coronary artery bypass grafting on 10/05/22??and sternal wound debridement on ??by me doing well postoperatively. Dressing changed and packed, continue daily. Looks smaller and healing nicely. No need for abx.??F/u 1 week for wound check.? Buster Patrick MD [facility]?? [address] [facility], [address] [place] [address] Office: [phone] Patient Care team information Care Team Personnel Name: Carissa Morales LPN Position: S RN Member Role: Primary Care Nurse Name: Merlin Horn RN Position: [facility] RN Member Role: Primary Care Nurse Name: Raúl Kirk RN Position: S RN Member Role: Primary Care Nurse Name: Angelo Mercado Position: Reference Physician Member Role: PCP Address: Address: [address] [facility] [address] [place] [address]- Name: Teofilo Wilks RN Position: S RN Member Role: Primary Care Nurse Name: Stefania Mariee LPN Position: S RN Member Role: Primary Care Nurse Name: Laura Grover RN Position: S RN Member Role: Primary Care Nurse Name: Roxana Mackey Position: S RN Member Role: Primary Care Nurse Name: Nick Carvajal MD Position: [facility] Renal MD Member Role: Lifetime Consulting Physician Address: Address: [address] [facility] [address] [facility], [place] [address]- Care Team Related Persons Name: CASIMIRO DAVIS Address: home [address] [place] [address] [place] [address] Name: NO HUMPHRIES Address: home
--- OUTSIDE RECORDS SUMMARY | 2023-02-08 09:21 | XMS_ITS | Continuity of Care Document ---
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 Branch Manager Name Role Phone Angelo Mercado Primary Care Physician Encounter [facility] Date(s): 12/09/22 - 12/10/[address] [id number] Discharge Disposition: A-D/C AMA Attending Physician: Marilyn LEA, Elpidio Admitting Physician: Mark Bowles DO Referring Physician: Not on Staff, Referring MD Allergies, Adverse Reactions, Alerts Substance Reaction Severity Status clindamycin swelling body Active amoxicillin Swelling of throat Active penicillins ear, face, throat sw elling rash Active Peanuts Active Erythromycin and Other Macro lides Causing Adverse Effects in Therapeutic Use Diarrhea sweeling rash Active sulfonamides body swelling rash Active Zithromax Bloody stool Diarrhea Active Levaquin SPARKS - Headache Active Other [...] Exam Date Time Procedure Performing Provider Status 12/09/22 3:56 PM Chest 2 Views Frontal and Lat Sawthi Conklin; Guero (Verified) Notes: (Chest 2 Views Frontal and Lat) Reason For Exam: Chest Pain;Other: RESULT: Chest 2 Views Frontal and Lat Chest 2 Views Frontal and Lat Hx of Present Illness: States had a CABG in September 2022 after cardiac event. Surgery complicated by post op infection. today coming in with similar chest heaviness and heaviness down her arms that she had that day. COMPARISON: 10/09/2022. FINDINGS: LUNGS AND PLEURA: Mildly hyperexpanded and clear. No pleural effusion. No pneumothorax. HEART, MEDIASTINUM AND AISLINN: Heart is normal in size with post-CABG changes suggested. Normal mediastinal and hilar contour. BONES AND SOFT TISSUES: No acute abnormality. Multiple intact sternal wires and plates. IMPRESSION: No acute abnormality. WSN: [id number] Ordering Physician: Bj Marsh Dictated By: Chai Falcon MD Dictated Date/Time: 12/09/22 4:06 pm Reviewed By: Chai Falcon MD Signed By: Chai Falcon MD Signed Date/Time: 12/09/22 4:06 pm Transcribed By: HEATHER Transcribed Date/Time: 12/09/22 4:03 pm Vital Signs Most recent to oldest [Reference Range]: 1 2 3 Height 154 cm (12/10/22 7:40 AM) 154 cm (12/10/22 5:53 AM) 154 cm (12/10/22 5:49 AM) Weight 85.7 kg (12/10/22 5:49 AM) 84 kg (12/09/22 2:13 PM) Oxygen Saturation [94-100 %] 99 % (12/10/22 7:40 AM) 100 % (12/10/22 5:49 AM) 100 % (12/10/22 5:14 AM) Pulse Rate [55-90 bpm] 84 bpm (12/10/22 7:40 AM) 80 bpm (12/10/22 5:49 AM) 81 bpm (12/10/22 5:14 AM) Body Mass Index [18.5-24.99 kg/m2] 36.14 kg/m2 *>HHI* (12/10/22 5:49 AM) 35.42 kg/m2 *>HHI* (12/09/22 2:13 PM) Blood Pressure [90-138/55-84 mm Hg] 127/84mm Hg (12/10/22 7:40 AM) 121/104mm Hg (12/10/22 5:49 AM) 103/74mm Hg (12/10/22 5:14 AM) Respiratory Rate [16-30 br/min] 20 br/min (12/10/22 7:40 AM) 20 br/min (12/10/22 5:49 AM) 20 br/min (12/10/22 5:14 AM) Temperature [96.8-100.4 DegF] 97.6 DegF (12/10/22 7:40 AM) 97.7 DegF (12/10/22 5:49 AM) 97.6 DegF (12/10/22 5:14 AM) Mode of Delivery (Oxygen) Room air (12/10/22 7:40 AM) Room air (12/10/22 5:49 AM) Room air (12/10/22 5:14 AM) Blood pressure sites Arm, left (12/10/22 7:40 AM) Arm, left (12/10/22 5:49 AM) Arm, right (12/10/22 5:14 AM) Temperature Route Temporal (12/10/22 7:40 AM) Temporal (12/10/22 5:49 AM) Oral (12/10/22 5:14 AM) Dry Weight 84 kg (12/09/22 2:13 PM) Weight Obtained Via Bed scale (12/10/22 5:49 AM) Patient/family stated (12/09/22 2:13 PM) Dry Weight Obtained Via Patient/family s tated (12/09/22 2:13 PM) Social History Social History Type Response Smoking Status Former smoker, quit more than 30 days ago entered on: 11/24/22 Sex History and physical note * Kelsey LEA, [facility]: PERFORM Event Display: History and Physical Hospital Authored Date: [id number] Patient: ??HUMPHRIES, YARA ? Age:??57 Years?Sex:??Female?:??1965?? Chief Complaint/Reason for Consultation from home, chest tightness radiating to both upper extremities, CABG in September 2022, denies sob, also reports skin infection at incision site History of Present Illness 57-year-old female with a past medical history of CAD status post CABG in 10/15/2022, complicated bysternal wound s/p debridement, abx and wound vac, obesity, IBS, presents to the hospital with chestpain.?? Patient reports that pain is across the chest, radiated to both arms, reports tightness, associate with lightheadedness.?? Patient reports she had similar symptoms prior to her CABG.?? Patient reports symptoms worse with exertion.?? Symptoms are about 10:30 in the morning and lasted about waxing and waning.?? Worse with activity.?? She is currently chest pain free after she received full dose aspirin and nitro.?? Patient denies having any other symptoms.fever, chills, cold, cough, abdominal pain or urinary symptoms In the emergency department patient was hemodynamically stable, lab work showed CBC within normal limits, chemistry within normal limits, troponin 22, 21, 18, EKG shows normal sinus rhythm, Q waves in subtle ST elevations in 3 and aVF but this is unchanged from prior tracings, Review of Systems as noted in HPI Objective Measurements?? Height: 154 cm (12/10/22) Weight: 85.7 kg (12/10/22) Dry Weight: 84 kg (12/09/22) Body Mass Index:??36.14 kg/m2??Critical (12/10/22) ? Vital Signs?? Temperature: 97.7 DegF (12/10/22 05:49:00) Temperature Route: Temporal (12/10/22 05:49:00) Pulse Rate: 80 bpm (12/10/22 05:49:00) Respiratory Rate: 20 br/min (12/10/22 05:49:00) Systolic Blood Pressure: 121 mm Hg (12/10/22 05:49:00) Diastolic Blood Pressure:??104 mm Hg??High (12/10/22 05:49:00) Blood pressure sites: Arm, left (12/10/22 05:49:00) Mean Arterial Pressure: 110 mm Hg (12/10/22 05:49:00) Pulse Pressure: 17 mm Hg (12/10/22 05:49:00) Oxygen Saturation: 100 % (12/10/22 05:49:00) Mode of Delivery (Oxygen): Room air (12/10/22 05:49:00) Early Warning Score: 2 (12/10/22 05:53:19) ? Physical Exam Constitutional: Alert, in no acute distress. Head EENT: Extraocular muscle movement intact.??Moist mucous membranes.?? Neck: Supple. No JVD. Respiratory: Clear to auscultation. No wheezing or crackles. No use of accessory muscles. Cardiovascular: S1S2 regular. No murmurs, rubs or gallops. Gastrointestinal: Abdomen soft, non-tender, non-distended. Normal bowel sounds. Genitourinary: No CVA tenderness. Extremities: No lower extremity pitting??edema. No cyanosis or clubbing. Neurologic: AAOx3, Speech normal. No focal neurological deficits. Skin: No rash. sternal wound with dressing. Psychiatric: Normal mood and affect Assessment/Plan Diagnoses COVID-19 ??(U07.1) Chest pain ??(R07.9) 1. ??IBS (irritable bowel syndrome) ??(K58.9) ?? Assessment:??57-year-old female with a past medical history of CAD status post CABG in 10/15/2022, complicated by sternal wound s/p debridement, abx and wound vac, obesity, IBS, presents to the hospital with chest pain ?? Chest pain (R07.9):??Presents with chest pain,??across chest, radiating arms??similar symptoms prior to her CABG,??troponin today??22, 21 and 18, EKG shows normal sinus rhythm, Q waves??in??[address] elevations, just from prior tracings,??patient is currently chest pain-free but getsworse with exertion. -Continue to monitor on cardiac monitoring -Cardiology consult??especially given CAD and status post CABG -cont asa, Plavix and statin ?? COVID-19 (U07.1):??Her COVID came back positive, she denied having any symptoms -she is not hypoxic, asymptomatic, does not qualify for any treatment -isolation precautions ?? IBS (irritable bowel syndrome) (K58.9):??has bloating and pancrealipase ?? VTE Prophylaxis:??lovenox ?VTE Prophylaxis Assessment:??Risk Level documented as Low Risk ?? Code Status:??full ?Order Code Status:??Code Status Ordered ?? Ongoing Medical Necessity:??cardiac eval ?? Tobacco Use Treatment:??quit smoking in 09/2022 ?? Discharge Planning:??pending clinical course ?? This note was created using [employer] speech recognition software, there may be unwanted word substitution, typographical errors or grammatical error, an attempt at proofreading has been made to minimize errors. please call if there are any questions regarding plan of care. ? Histories Allergies Allergies ?(Active and Proposed Allergies Only) ceFAZolin? (Severity: Unknown severity, Onset: Unknown) ?Comments: lip and tongue sweling Peanuts? (Severity: Unknown severity, Onset: Unknown) sulfonamides? (Severity: Unknown severity, Onset: Unknown) ?Reactions: rash, body swelling Doxycyline hyclate 100mg capsule? (Severity: Unknown severity, Onset: Unknown) ?Reactions: rash sweeling, seizures, vomiting, incontinence penicillins? (Severity: Unknown severity, Onset: Unknown) ?Reactions: rash, ear, face, throat swelling Levaquin? (Severity: Unknown severity, Onset: Unknown) ?Reactions: SPARKS - Headache clindamycin? (Severity: Unknown severity, Onset: [...] butter ? Past Medical History/Problem List Active Problems??(23) Asthma Bartholin cyst Borderline high cholesterol Carpal tunnel syndrome of left wrist Chest pain COVID-19 Current smoker Depression IBS (irritable bowel syndrome) Low back pain Migraine with aura and without status migrainosus, not intractable Moderate episode of recurrent major depressive disorder Nephrolithiasis Obstructive sleep apnea Overactive bladder Paresthesia of upper extremity Right knee pain Severe obesity (BMI 35.0-39.9) with comorbidity Sinusitis Sternal wound infection Tobacco abuse Venous insufficiency (chronic) (peripheral) Vitamin [...] Yes. Substance Abuse Details:??Use: Never. Tobacco Details:??Use: Former smoker, quit more than 30 days ago. Details:??Use: 5-9 cigarettes (between 1/4 to 1/2 pack)/day in last 30 days. ? Family History Mother (): CVD - cardiovascular disease; Heart attack; Heart disease; Stroke Father (): CVD - cardiovascular disease; Heart attack ? Medications Home Medications Acetaminophen (acetaminophen 325 mg oral tablet)?975?Milligram?By Mouth?4 times a day?as needed?Pain , Mild Aspirin (Aspirin Tablet)?81?Milligram?By Mouth?Daily Atorvastatin (Lipitor 80 mg oral tablet)?1?tab(s)?80?Milligram?By Mouth?Daily at bedtime Betamethasone Topical (betamethasone topical dipropionate, augmented 0.05% ointment)?45 Gm, 0 Refill(s), APPLY A THIN COAT EXTERNALLY AT BEDTIME NEEDED FOR ALLERGIC REACTION FOR 2 WEEKS, THEN EVERY OTHER DAY FOR 2 WEEKS AND THEN TWICE A WEEK Cholecalciferol (Vitamin D3 2000 intl units oral capsule)?1?capsule?50?Microgram?By Mouth?Daily Clopidogrel (clopidogrel 75 mg oral tablet)?75?Milligram?1?tablet?By Mouth?Daily Desonide Topical (desonide 0.05% topical ointment)?60 Gm, 0 Refill(s), APPLY A THIN COAT TO AREAEXTERNALLY TWICE A WEEK AT BEDTIME Furosemide (Lasix 20 mg oral tablet)?1?capsule?By Mouth?Daily?for 7?Days Lidocaine/Prilocaine Topical (lidocaine-prilocaine 2.5%-2.5% topical cream)?See Instructions?1 application Topically to skin surrounding sternal wound 15 minutes prior to application of wound vac dressing. Please use 15 minutes prior to every dressing change. Pancrelipase (Creon 36,000 units oral delayed release capsule)?TAKE ONE CAPSULE BY MOUTH FOUR TIMES A DAY. ADMINISTER WITH MEALS/SNACKS Pyridoxine (Vitamin B6 100 mg oral tablet)?90 each, 0 Refill(s), TAKE ONE TABLET BY MOUTH EVERY DAY Remove Patch (Remove ??Patch)?1?Each?Topically?Daily ? Results Recent Labs BLOOD COUNT & DIFF WBC 10.5 k/mm3 ()?? 12/09/2022 17:47 RBC 4.37 m/mm3 ()?? 12/09/2022 17:47 Hgb 11.4 Gm/dL (Low)?? 12/09/2022 17:47 Hct 37.2 % ()?? 12/09/2022 17:47 MCV 85.1 femtoliters ()?? 12/09/2022 17:47 MCH 26.1 pg (Low)?? 12/09/2022 17:47 MCHC 30.6 g/dL (Low)?? 12/09/2022 17:47 Platelet Count 419 k/mm3 ()?? 12/09/2022 17:47 RDW-SD 44.7 femtoliters ()?? 12/09/2022 17:47 MPV 9.9 femtoliters ()?? 12/09/2022 17:47 Nucleated RBC (Automated) 0.0 #/100 WBC'S ()?? 12/09/2022 17:47 Abs. NRBC 0.0 k/mm3 ()?? 12/09/2022 17:47 Abs. Neut 7.0 k/mm3 ()?? 12/09/2022 17:47 Abs. Lymph 2.4 k/mm3 ()?? 12/09/2022 17:47 Abs. [place] 0.6 k/mm3 ()?? 12/09/2022 17:47 Abs. Eo 0.4 k/mm3 ()?? 12/09/2022 17:47 Abs. Baso 0.1 k/mm3 ()?? 12/09/2022 17:47 Neut % 66.7 % ()?? 12/09/2022 17:47 Lymph % 22.4 % ()?? 12/09/2022 17:47 [place] % 6.1 % ()?? 12/09/2022 17:47 Eos % 3.8 % ()?? 12/09/2022 17:47 Baso % 0.7 % ()?? 12/09/2022 17:47 Imm Gran 0.3 % ()?? 12/09/2022 17:47 Abs. Imm Gran 0.0 k/mm3 ()?? 12/09/2022 17:47 ?? CARDIAC Nt-Probnp 276 pg/mL (High)?? 12/09/2022 17:47 High Sensitivity Troponin (HSTnT) 18 ng/L (High)?? 12/09/2022 23:00 ?? CHEM GENERAL Sodium 141 mmol/L ()?? 12/09/2022 17:47 Potassium 4.4 mmol/L ()?? 12/09/2022 17:47 Chloride 105 mmol/L ()?? 12/09/2022 17:47 Bicarbonate Level 23 mmol/L ()?? 12/09/2022 17:47 Anion Gap 13 ()?? 12/09/2022 17:47 Glucose Level 84 mg/dL ()?? 12/09/2022 17:47 BUN 16 mg/dL ()?? 12/09/2022 17:47 Creatinine-Blood 0.8 mg/dL ()?? 12/09/2022 17:47 Estimated GFR Creatinine 84 ML/MIN/1.73 M2 ()?? 12/09/2022 17:47 Calcium 9.6 mg/dL ()?? 12/09/2022 17:47 ?? HEME OTHER Hold Blue Top SPECIMEN DISCARDED AFTER 4 HOURS. ()?? 12/09/2022 17:47 ?? URINE OTHER Est Creatinine Clearance 56.81 mL/min ()?? 12/09/2022 18:54 ?? VIROLOGY COVID-19 by RT-PCR POSITIVE (Abnormal)?? 12/10/2022 03:56 ? EKG study * Event Display: ECG 12-Lead Authored Date: Please click on pdf link to open report * Event Display: ECG 12-Lead Authored Date: Ventricular Rate: 86 BPM Atrial Rate: 86 BPM P-R Interval: 176 ms QRS Duration: 84 ms Q-T Interval: 394 ms QTC Calculation(Bazett): 471 ms P Dixon: 59 degrees R Dixon: 37 degrees T Dixon: 87 degrees Normal sinus rhythm Possible Left atrial enlargement Nonspecific ST and T wave abnormality Abnormal ECG When compared with ECG of 09-DEC-2022 14:17, No significant change was found Confirmed by KIT TOMPKINS MD ([id number]) on 12/10/2022 8:00:02 AM [place]: KIT TOMPKINS MD * Event Display: ECG 12-Lead Authored Date: Please click on pdf link to open report * Event Display: ECG 12-Lead Authored Date: Ventricular Rate: 77 BPM Atrial Rate: 77 BPM P-R Interval: 158 ms QRS Duration: 84 ms Q-T Interval: 388 ms QTC Calculation(Bazett): 439 ms P Dixon: 55 degrees R Dixon: 41 degrees T Dixon: 77 degrees Normal sinus rhythm Possible Anterior infarct , age undetermined Abnormal ECG When compared with ECG of 05-OCT-2022 02:38, Borderline criteria for Anterior infarct are now Present Confirmed by COREY JALLOH ([id number]) on 12/09/2022 3:11:00 PM [place]: COREY JALLOH [facility] Progress note * Madie CARDOSO, Vielka: PERFORM, MODIFY, MODIFY, SIGN, VERIFY Event Display: [facility] Authored Date: Patient: YARA HUMPHRIES Age: 57 years Sex: Female : 1965 Associated Diagnoses: None Author: Madie CARDOSO, Vielka Findings Evaluation On enhanced respiratory precautions for (+) covid. In AM, patient complained to staff about breakfast tray, states that she is lactose intolerant and cannot have milk/milk products. Kitchen was pagedand phoned to provide lactose free breakfast tray. Patient however demanded items for breakfast that despite explainations that those items were not lactose free, patient insisted and then refused breakfast. Patient then repeatedly demanded regularly scheduled medicines and became impatient waiting, so she decided to leave AMA. Dr Sanders notified, but patient was already leaving. Patient was stopped near elevator by SW7 OA and clinical nursing feed mill supervisor who convinced patient to stay for IV re moval and sign AMA form. IV was removed, tele monitor removed, AMA papers signed. Patient then left, patient situation discussed with nursing feed mill supervisor. . * Sheri Ascencio RN: PERFORM, SIGN, VERIFY, MODIFY, SIGN Event Display: Progress Note Hospital Authored Date: [id number] Patient: YARA HUMPHRIES Age: 57 years Sex: Female : 1965 Associated Diagnoses: None Author: Sheri Ascencio RN Findings Problem Related to Alteration in Cardiac Function (new) : Alteration in Cardiac Function/new 12/10/2022 6:00 EDT Alteration in Cardiac Status Related to Other: ACS rurle out Goals & Outcomes, Cardiac Status Pt will resume/maintain adequate cardiac output, Pt will resume/maintain adequate hemodynamic status, Pt will resume/maintain adequate respiratory function, Pt will resume/maintain intact neuro function, Pt will maintain adequate GI/ function appropriate for pt, Pt will maintain adequate nutrition status, Pt/caregiver will state understanding of diagnosis, Pt/caregiver will state strategies to reduce risk factors Cardiac Interventions Implemented Assess/monitor cardiac status, Assess/monitor neuro status, Assess/monitor respiratory status, Document & Monitor O2 Sats; Administer O2 as ordered, Ensure adequate caloric intake, If no bowel movement in 3 days activate bowel regime, Monitor & document daily weight, Teach/encourage deep breath & cough exercises, Teach/encourage use of incentive spirometer Goals/Interventions, Cardiac Yes Cardiac, Problem Start 12/10/2022 6:40 Reviewed Plan with, Cardiac Status Patient Patient Progression, Cardiac Status Plan Initiation . Alteration in Respiratory Function (new) : Alteration in Respiratory Function/new 12/10/2022 6:00 EDT Alteration in Resp Status Related to COVID - 19 Goals & Outcomes, Respiratory Pt will maintain/resume baseline physical assessment, Pt will maintain adequate nutritional intake, Pt will maintain/resume normal fluid/electrolyte balance Interventions, Respiratory Assess for and report S&S of respiratory distress, Position for comfort & optimal oxygenation, Monitor sputum color & consistency. Report changes to MD, Teach/encourage use of incentive spirometer, Teach purse lip breathing as needed for breathing retraining, Teach tripod positioning to promote air exchange Goals/Interventions, Respiratory Yes Respiratory, Problem Start 12/10/2022 6:41 Reviewed Plan with, Respiratory Patient Patient Progression, Respiratory Plan Initiation . Nursing Data Cardiac Data. : Cardiac Data. 12/10/2022 6:15 EDT Cardiac Rhythm Normal sinus rhythm Capillary Refill < 3 seconds Radial Pulse, Left Normal Radial Pulse, Right Normal Dorsalis Pedis Pulse, Left Normal Dorsalis Pedis Pulse, Right Normal Ankle, right 1+ trace teletypesetter monitor Yes Cardiovascular WNL except . Vital Signs : VITAL SIGNS SECTION 12/10/2022 5:49 EDT Temperature 97.7 DegF Temperature Route Temporal Pulse Rate 80 bpm Respiratory Rate 20 br/min Systolic Blood Pressure 121 mm Hg Diastolic Blood Pressure 104 mm Hg H Blood pressure sites Arm, left Mean Arterial Pressure 110 mm Hg Pulse Pressure 17 mm Hg Oxygen Saturation 100 % Mode of Delivery (Oxygen) Room air . Evaluation Pt arrived to the unit from D3[facility] via wheelchair in stable condition. Oriented to unit, room, staff, and call ramirez system. Pt is alert & oriented x3. NSR on tele. Denies chest pain, palpitations, shortness of breath, and dizziness. LS clear. Sats WNL on RA. Enhanced respiratory precautions for COVID-19. Ambulates independently and is voiding appropriately in the bathroom. LBM 12/09. +BS. Sternalsurgical wound noted. Dressing CDI. The pt denies any concerns at this time and is resting in bed. Frequent rounding done to ensure safety & comfort. Bed in lowest locked position and call ramirez within reach.. Consult note * Rose Marie LEA, Anil S: PERFORM, MODIFY Event Display: Consultation Note Authored Date: [id number] Patient: ??YARA HUMPHRIES ? Age:??57 Years?Sex:??Female?:??1965?? Indication for Consult Reason For Consult: Chest pain post CABG Requesting Provider: Madina Cole MD Primary Petroleum Geologist: Dr Garg Consulting Petroleum Geologist: Dr Ingram History of Present Illness/Interval History 57-year-old female with a past??hx of tobacco abuse, 46-ywwt-cigr history currently smoking 1 pack/day] family history of premature coronary artery disease [father at 45 from CAD, mother at67 from CAD] obesity, history of IBS and bloating on pancrelipase, prediabetes, CAD with a diagnosis of NSTEMI in September 2022. ??She had a cardiac catheterization which demonstrated multivessel disease and eventually had a bypass on October 05 [ORR to LAD vein graft to RCA, vein graft to OM. ??She was readmitted on November 12 with nonhealing sternal wound on November 14 and went to the operating room for debridement and discharge on November 16.?? Patient presents to the emergency room via EMS with complaints of chest pain. ??She said she went to her??handicapped teacher office yesterday and when she was walking out of the car she started experiencing??substernal chest tightness??which went??to the right bicep.?? She said it lasted approximately 6 hours. ??She finished her visit with a handicapped teacher??and went home.?? At 10:30 AM and was still present??and as such she called the EMS.?? On arrival to EMS, she was mildly hypertensive to 160/ 75,??she was given nitro sublingual spray??with no effect.?? She continued to have chest pain while in the emergency room.?? She reported the chest pain subsided spontaneously after about 6 hours.?? She has not received any further intervention. ??She has tested positive for COVID however has been asymptomatic.?? She is very keen on leaving and does not want to stay for further evaluation.?? She says that the chest discomfort she experienced reminded her of??of that of??initial presentation in September??and it was very similar to when she went??to the handicapped teacher office.?? She denied any lightheadedness, dizziness, nausea or vomiting.?? She says at least 3 out of 10 in severity. ? Labs Labs 310 hemoglobin 11 platelet 219 Sodium 141 potassium 4.4 chloride 10 bicarb 23 BUN 16 creatinine 0.8 High sensitive troponin 22, 21, 18, 16 Chest x-ray no acute abnormality. ?? Twelve-lead EKG dated December 09 sinus rhythm Q wave in lead III poor R wave progression. ??EKG dated December 10 normal sinus rhythm Q waves in lead III transthoracic echo dated October 02, 2020. LVEF of 55-70 basal to mid and status. ??No significant aortic valve disease or mitral valve disease. ??Home medication Aspirin 81 Tylenol Plavix 75 Lasix 20 ?? MAR summary Aspirin 81 Lipitor 80 Plavix 75 Lovenox 40 mg daily Pancrelipase Review of Systems Negative except for above Physical Exam Vitals & Measurements T:??97.7?F?? HR:??80??(Peripheral)?? RR:??20?? BP:??121/104?? SpO2:??100%?? HT:??154??cm?? WT:??85.7??kg?? BMI:??36.14?? Weight lb/oz: 188 lb 15 oz Constitutional: Alert, in no acute distress. Head EENT: Extraocular muscle movement intact.??Moist mucous membranes.?? Neck: Supple. No JVD. Respiratory: Clear to auscultation. No wheezing or crackles. No use of accessory muscles. Cardiovascular: S1S2 regular. No murmurs, rubs or gallops. Gastrointestinal: Abdomen soft, non-tender, non-distended. Normal bowel sounds. Genitourinary: No CVA tenderness. Extremities: No lower extremity pitting??edema. No cyanosis or clubbing. Assessment/Plan 57-year-old female with a past medical history of tobacco use disorder, already pack a history, family history of premature coronary artery disease, obesity, history of IBS, prediabetes, CAD status post CABG ORR to LAD, vein graft to RCA, vein graft to OM] presented to the emergency room with complaints of chest discomfort. ??Her EKG is benign which was inferior Q waves and poor R wave progression. ??High-sensitivity troponin has been low and flat essentially ruling out an NSTEMI. ??At this time would favor medical management with the addition of beta-constantin and possible long-acting nitrates. ??She also tested positive for COVID 19 however has been asymptomatic. ??She wants to leave and fo llow-up as an outpatient. ?? Problem list 1. ??Angina 2. ??History of CAD status post CABG in September 2022 [ORR to LAD, vein graft to RCA, vein graft to OM] 3. ??Wound dehiscence post CABG 4. ??COVID-19 infection 5. ??Tobacco use disorder???stop smoking 2 months ago 6. ??Family history of coronary artery disease 7. ??Prediabetes 8. ??IBS ?? Recommendations 1. ??At this time would recommend the addition of antianginal therapy with the addition of metoprolol 50 mg XL daily and possible long-acting nitrates in the form of Imdur 30 mg daily. 2. ??We will arrange outpatient cardiology follow-up for her. ? Thank you for allowing us to participate in the care of this patient. ?? Anil Trotter Cardiovascular Disease Fellow [id number] Case D/W Dr. Ingram Allergies Doxycyline hyclate 100mg capsule??(vomiting, incontinence, seizures, rash sweeling) Erythromycin and Other Macrolides Causing Adverse Effects in Therapeutic Use??(Diarrhea, sweeling rash) Levaquin??(SPARKS - Headache) Other Food Allergy??(raisins, turnip, peanut butter) Peanuts Zithromax??(Bloody stool, Diarrhea) amoxicillin??(Swelling of throat) ceFAZolin clindamycin??(swelling body) penicillins??(ear, face, throat swelling, rash) sulfonamides??(body swelling, rash) Home Medications Acetaminophen: 975 mg, By Mouth, 4 times a day, PRN (Pain , Mild) Aspirin: 81 mg, By Mouth, Daily Atorvastatin: 80 mg = 1 tablet, By Mouth, Daily at bedtime Betamethasone Topical: 45 Gm, 0 Refill(s), APPLY A THIN COAT EXTERNALLY AT BEDTIME NEEDED FOR ALLERGIC REACTION FOR 2 WEEKS, THEN EVERY OTHER DAY FOR 2 WEEKS AND THEN TWICE A WEEK Cholecalciferol: 50 mcg = 1 capsule, By Mouth, Daily Clopidogrel: 75 mg = 1 tablet, By Mouth, Daily Desonide Topical: 60 Gm, 0 Refill(s), APPLY A THIN COAT TO AREA EXTERNALLY TWICE A WEEK AT BEDTIME Furosemide: 1 capsule, By Mouth, Daily Lidocaine/Prilocaine Topical: See Instructions, 1 application Topically to skin surrounding sternalwound 15 minutes prior to application of wound vac dressing. Please use 15 minutes prior to every dressing change. Pancrelipase: TAKE ONE CAPSULE BY MOUTH FOUR TIMES A DAY. ADMINISTER WITH MEALS/SNACKS Pyridoxine: 90 each, 0 Refill(s), TAKE ONE TABLET BY MOUTH EVERY DAY Remove Patch: 1 each, Topically, Daily Hospital Medications Medications (15) Active SCHEDULED: (8) Aspirin 81 mg EC Tablet (Aspirin Tablet) ??81 mg, By Mouth, Daily Atorvastatin 80 mg Tablet (Lipitor 80 mg oral tablet) ??80 mg, By Mouth, Daily at bedtime Clopidogrel 75 mg Tablet (clopidogrel 75 mg oral tablet) ??75 mg, By Mouth, Daily Enoxaparin 40 mg Inj (Enoxaparin Inj) ??40 mg 0.4 mL, Subcutaneous Injection, Daily NaCl 0.9% Flush 3ml (NaCL 0.9% Flush) ??3 mL, IV Push, Every 8 hours Pancrelipase 15,000 unit Capsule (Pancrelipase Capsule) ??30,000 units 2 capsule, By Mouth, 3 timesa day with meals Pyridoxine 50 mg Tablet (Vitamin B6 50 mg oral tablet) ??50 mg, By Mouth, Daily Vitamin D 1000 IU Tablet (Vitamin D3 1000 intl units oral tablet) ??, By Mouth, Daily CONTINUOUS: (0) PRN: (7) Acetaminophen 325 mg Tablet (Acetaminophen Tablet) ??650 mg, By Mouth, Every 4 hours Dextromethorphan-Guaifenesin 20 mg-200 mg/10 mL Liqu UD (Robitussin DM Liquid) ??10 mL, By Mouth, Every 4 hours Melatonin 3 mg Tablet (Melatonin Tablet) ??3 mg, By Mouth, Daily at bedtime NaCl 0.9% Flush 3ml (NaCL 0.9% Flush) ??3 mL, IV Push, Every 8 hours Polyethylene Glycol 17 Gm Powder (MiraLax Powder) ??17 Gm 1 pack/packet, By Mouth, Daily Senna 8.6 mg / Docusate 50 mg tablet (Docusate/Senna Tablet) ??1 tablet, By Mouth, 2 times a day Simethicone 80 mg Chewable Tablet (Simethicone Tablet) ??80 mg, Chew, 3 times a day Lab Results Cardiology Labs WBC: 9.6 k/mm3 (12/10/22) RBC:??4.08 m/mm3??Low (12/10/22) Hgb:??10.7 Gm/dL??Low (12/10/22) Hct:??34.4 %??Low (12/10/22) MCV: 84.3 femtoliters (12/10/22) MCH:??26.2 pg??Low (12/10/22) MCHC:??31.1 g/dL??Low (12/10/22) Platelet Count: 414 k/mm3 (12/10/22) RDW-SD: 44.9 femtoliters (12/10/22) Nucleated RBC (Automated): 0 #/100 WBC'S (12/10/22) Abs. Neut: 5.9 k/mm3 (12/10/22) Abs. Lymph: 2.2 k/mm3 (12/10/22) Abs. [place]: 0.9 k/mm3 (12/10/22) Abs. Eo: 0.4 k/mm3 (12/10/22) Abs. Baso: 0.1 k/mm3 (12/10/22) Neut %: 62.1 % (12/10/22) [place] %: 9.3 % (12/10/22) Eos %: 4.5 % (12/10/22) Baso %: 0.7 % (12/10/22) Imm Gran: 0.4 % (12/10/22) Abs. Imm Gran: 0 k/mm3 (12/10/22) INR: 1 (11/13/22) Protime (PT): 10.9 seconds (11/13/22) APTT: 25.3 seconds (11/13/22) Sodium: 137 mmol/L (12/10/22) Potassium: 4.4 mmol/L (12/10/22) Chloride: 104 mmol/L (12/10/22) Bicarbonate Level: 22 mmol/L (12/10/22) Glucose Level: 97 mg/dL (12/10/22) Hemoglobin A1C (Monitoring):??6 %??High (09/29/22) BUN: 19 mg/dL (12/10/22) Creatinine-Blood: 0.9 mg/dL (12/10/22) Calcium: 9.3 mg/dL (12/10/22) Protein, Total: 7.1 Gm/dL (11/12/22) Albumin: 4.2 Gm/dL (11/13/22) Alkaline Phosphatase:??120 units/L??High (11/12/22) AST (SGOT): 17 units/L (11/12/22) ALT (SGPT): 18 units/L (11/12/22) Bilirubin, Total: 0.2 mg/dL (11/13/22) Troponin T Quant: <0.01 (02/05/22) Nt-Probnp:??276 pg/mL??High (12/09/22) Cholesterol: 89 mg/dL (10/07/22) Triglycerides: 100 mg/dL (10/07/22) HDL Cholesterol:??36 mg/dL??Low (10/07/22) LDL Cholesterol: 33 mg/dL (10/07/22) Non HDL Cholesterol: 53 mg/dL (10/07/22) Diagnostic Impression ECG ECG 12-Lead ?? 02:25:40 Please click on pdf link to open report ?? Signed By: Kit Tompkins DO ?? ECG 12-Lead ?? 02:25:40 Ventricular Rate: 86 BPM Atrial Rate: 86 BPM P-R Interval: 176 ms QRS Duration: 84 ms Q-T Interval: 394 ms QTC Calculation(Bazett): 471 ms P Dixon: 59 degrees R Dixon: 37 degrees T Dixon: 87 degrees Normal sinus rhythm Possible Left atrial enlargement Nonspecific ST and T wave abnormality Abnormal ECG When compared with ECG of 09-DEC-2022 14:17, No significant change was found Confirmed by KIT TOMPKINS MD ([id number]) on 12/10/2022 8:00:02 AM ?? [place]: KIT TOMPKINS MD ?? Signed By: Kit Tompkins DO Echo Echocardiogram - Complete ?? 09:12:03 Summary 1. Left ventricular size and wall thickness are normal. The left ventricular ejection fraction is 55-60%. The basal to mid inferior wall is akinetic. Probably normal diastolic function. 2. The right ventricle is normal in size and function. An accurate pulmonary artery pressure could not be obtained. 3. Biatrial size is normal. 4. There is no hemodynamically significant valvular disease. ?? Comparison No prior study available for comparison. ?? Signature ?? Signed By: Corey Jalloh MD VL Studies VL Carotid Duplex Scan Bilat ?? 09:05:31 Summary: Right side: Mild atherosclerosis that is not hemodynamically significant at 1-49% stenosis of the Internal Carotid Artery. Antegrade Vertebral artery flow. Multiphasic Subclavian artery flow. ?? Left side: Minimal atherosclerosis that is not hemodynamically significant at1-49% stenosis of the Internal Carotid Artery. Antegrade Vertebral artery flow, however, the waveform has an abnormal appearance. Elevated monophasic Subclavian artery flow. The above findings could be suggestive of an impending steal. ?? There is no previous exam for comparison. ? Signed By: Hamlet Masterson MD Problem List/Past Medical History Ongoing Asthma Bartholin cyst Borderline high cholesterol Carpal tunnel syndrome of left wrist Chest pain COVID-19 Current smoker Depression IBS (irritable bowel syndrome) Low back pain Migraine with aura and without status migrainosus, not intractable Moderate episode of recurrent major depressive disorder Nephrolithiasis Obstructive sleep apnea Overactive bladder Paresthesia of upper extremity Right knee pain Severe obesity (BMI 35.0-39.9) with comorbidity Sinusitis Sternal wound infection Tobacco abuse Venous insufficiency (chronic) (peripheral) Vitamin D deficiency Procedure/Surgical History Colonoscopy, flexible, proximal to splenic flexure; with removal of tumor(s), polyp(s), or other lesion(s) by snare technique: 04/24/17 Appendectomy: 12/16/12 Appendix operation Cholecystectomy milk duct removal Endoscopy of the stomach and esophagus Endometrial ablation Ablation Social History Alcohol Use: Never. Employment/School Status: Unemployed. Exercise Self assessment: Poor condition. Regular exercise: No. Home/Environment Living situation: Home/Independent. Lives with: Spouse, son, sister, brother in law , 3 grandsons. Nutrition/Health Diet: Regular. Sexual Sexually involved in last 6 months: Yes. Substance Abuse Use: Never. Tobacco Use: Former smoker, quit more than 30 days ago. Family History Mother (): CVD - cardiovascular disease; Heart attack; Heart disease; Stroke Father (): CVD - cardiovascular disease; Heart attack Note * Marilyn LEA, Elpidio: PERFORM Event Display: Discharge/Transfer Note Hospital Authored Date: [id number] Patient: ??HUMPHRIES, YARA ? Age:??57 Years?Sex:??Female?:??1965?? Patient Information Discharge Location: Primary Care Physician: Angelo Mercado Admit Date/Time: 12/09/22 13:54 Discharge Disposition Discharge Disposition: Home: No Services Discharge Diagnosis Angina ??History of CAD status post CABG in September 2022?? Wound dehiscence post CABG COVID-19 infection Tobacco use disorder???stop smoking 2 months ago Family history of coronary artery disease ??Prediabetes IBS (irritable bowel syndrome _ Discharge Medications Acetaminophen (acetaminophen 325 mg oral tablet)?975?Milligram?By Mouth?4 times a day?as needed?Pain , Mild Aspirin (Aspirin Tablet)?81?Milligram?By Mouth?Daily Atorvastatin (Lipitor 80 mg oral tablet)?1?tab(s)?80?Milligram?By Mouth?Daily at bedtime Cholecalciferol (Vitamin D3 2000 intl units oral capsule)?1?capsule?50?Microgram?By Mouth?Daily Clopidogrel (clopidogrel 75 mg oral tablet)?75?Milligram?1?tablet?By Mouth?Daily Isosorbide Mononitrate (isosorbide mononitrate 30 mg oral tablet, extended release)?30?Milligram?1?tablet?By Mouth?Daily in AM?for 30?Days Metoprolol (metoprolol 50 mg oral tablet, extended release)?See Instructions?1 tablet By Mouth Dailyplease hold for bp <100 and hr < 55 Pancrelipase (Creon 36,000 units oral delayed release capsule)?TAKE ONE CAPSULE BY MOUTH FOUR TIMES A DAY. ADMINISTER WITH MEALS/SNACKS Polyethylene Glycol 3350 (MiraLax oral powder for reconstitution)?17?gram?By Mouth?Daily?for 14?Days?dissolve in water before taking Pyridoxine (Vitamin B6 100 mg oral tablet)?90 each, 0 Refill(s), TAKE ONE TABLET BY MOUTH EVERY DAY ? Medications Started ??metoprolol and Imdur Medications Discontinued None Doses Changed None PCP Follow-Up/Heads-Up Please follow with the PCP within 2 weeks of discharge Please follow with the cardiology outpatient Future Appointments 2022 4:30 PM EDT ?? With: Darnell LEA, Buster Where: [facility] [address] [place] [address]- Status: Pending Hospital Course 57-year-old female with a past??hx of tobacco abuse, 42-mewt-pmhr history currently smoking 1 pack/day] family history of premature coronary artery disease [father at 45 from CAD, mother at67 from CAD] obesity, history of IBS and bloating on pancrelipase, prediabetes, CAD with a diagnosis of NSTEMI in September 2022. ??She had a cardiac catheterization which demonstrated multivessel disease and eventually had a bypass on October 05 [ORR to LAD vein graft to RCA, vein graft to OM. ??She was readmitted on November 12 with nonhealing sternal wound on November 14 and went to the operating room for debridement and discharge on November 16.?? Patient presents to the emergency room via EMS with complaints of chest pain. ??She said she went to her??handicapped teacher office yesterday and when she was walking out of the car she started experiencing??substernal chest tightness??which went??to the right bicep.?? She said it lasted approximately 6 hours. ??She finished her visit with a handicapped teacher??and went home.?? At 10:30 AM and was still present??and as such she called the EMS.?? On arrival to EMS, she was mildly hypertensive to 160/ 75,??she was given nitro sublingual spray??with no effect.?? She continued to have chest pain while in the emergency room.?? She reported the chest pain subsided spontaneously after about 6 hours.?? She has not received any further intervention. ??She has tested positive for COVID however has been asymptomatic ? Angina ??History of CAD status post CABG in September 2022?Wound dehiscence post CABG COVID-19 infection ??Tobacco use disorder???stop smoking 2 months ago Family history of coronary artery disease ??Prediabetes ??IBS ?? Patient very eager to?? leave and left AMA before even the meds were prescribed will?? call?? the patient and will send meds to?? pharmacy?? Objective Vital Signs?? Temperature: 97.7 DegF (12/10/22 05:49:00) Temperature Route: Temporal (12/10/22 05:49:00) Pulse Rate: 80 bpm (12/10/22 05:49:00) Respiratory Rate: 20 br/min (12/10/22 05:49:00) Systolic Blood Pressure: 121 mm Hg (12/10/22 05:49:00) Diastolic Blood Pressure:??104 mm Hg??High (12/10/22 05:49:00) Blood pressure sites: Arm, left (12/10/22 05:49:00) Mean Arterial Pressure: 110 mm Hg (12/10/22 05:49:00) Pulse Pressure: 17 mm Hg (12/10/22 05:49:00) Oxygen Saturation: 100 % (12/10/22 05:49:00) Mode of Delivery (Oxygen): Room air (12/10/22 05:49:00) Early Warning Score: 2 (12/10/22 07:31:06) ? . Physical Exam Constitutional: Alert, in no acute distress. Head EENT: Extraocular muscle movement intact.??Moist mucous membranes.?? Neck: Supple. No JVD. Respiratory: Clear to auscultation. No wheezing or crackles. No use of accessory muscles. Cardiovascular: S1S2 regular. No murmurs, rubs or gallops. Gastrointestinal: Abdomen soft, non-tender, non-distended. Normal bowel sounds. Genitourinary: No CVA tenderness. Extremities: No lower extremity pitting??edema. No cyanosis or clubbing. Consultants cardiology Patient Instructions please take meds as prescribed and follow with cardio?? out-patient Post Discharge Care please take meds as prescribed and follow with cardio?? out-patient Home Health Face to Face ^HomeHealthFTF Results Discharge Labs BLOOD COUNT & DIFF WBC 9.6 k/mm3 ()?? 12/10/2022 06:12 RBC 4.08 m/mm3 (Low)?? 12/10/2022 06:12 Hgb 10.7 Gm/dL (Low)?? 12/10/2022 06:12 Hct 34.4 % (Low)?? 12/10/2022 06:12 MCV 84.3 femtoliters ()?? 12/10/2022 06:12 MCH 26.2 pg (Low)?? 12/10/2022 06:12 MCHC 31.1 g/dL (Low)?? 12/10/2022 06:12 Platelet Count 414 k/mm3 ()?? 12/10/2022 06:12 RDW-SD 44.9 femtoliters ()?? 12/10/2022 06:12 MPV 10.0 femtoliters ()?? 12/10/2022 06:12 Nucleated RBC (Automated) 0.0 #/100 WBC'S ()?? 12/10/2022 06:12 Abs. NRBC 0.0 k/mm3 ()?? 12/10/2022 06:12 Abs. Neut 5.9 k/mm3 ()?? 12/10/2022 06:12 Abs. Lymph 2.2 k/mm3 ()?? 12/10/2022 06:12 Abs. [place] 0.9 k/mm3 ()?? 12/10/2022 06:12 Abs. Eo 0.4 k/mm3 ()?? 12/10/2022 06:12 Abs. Baso 0.1 k/mm3 ()?? 12/10/2022 06:12 Neut % 62.1 % ()?? 12/10/2022 06:12 Lymph % 23.0 % ()?? 12/10/2022 06:12 [place] % 9.3 % ()?? 12/10/2022 06:12 Eos % 4.5 % ()?? 12/10/2022 06:12 Baso % 0.7 % ()?? 12/10/2022 06:12 Imm Gran 0.4 % ()?? 12/10/2022 06:12 Abs. Imm Gran 0.0 k/mm3 ()?? 12/10/2022 06:12 ?? CARDIAC Nt-Probnp 276 pg/mL (High)?? 12/09/2022 17:47 High Sensitivity Troponin (HSTnT) 16 ng/L (High)?? 12/10/2022 06:06 ?? CHEM GENERAL Sodium 137 mmol/L ()?? 12/10/2022 06:12 Potassium 4.4 mmol/L ()?? 12/10/2022 06:12 Chloride 104 mmol/L ()?? 12/10/2022 06:12 Bicarbonate Level 22 mmol/L ()?? 12/10/2022 06:12 Anion Gap 11 ()?? 12/10/2022 06:12 Glucose Level 97 mg/dL ()?? 12/10/2022 06:12 BUN 19 mg/dL ()?? 12/10/2022 06:12 Creatinine-Blood 0.9 mg/dL ()?? 12/10/2022 06:12 Estimated GFR Creatinine 72 ML/MIN/1.73 M2 ()?? 12/10/2022 06:12 Calcium 9.3 mg/dL ()?? 12/10/2022 06:12 ?? HEME OTHER Hold Blue Top SPECIMEN DISCARDED AFTER 4 HOURS. ()?? 12/09/2022 17:47 ? URINE OTHER Est Creatinine Clearance 50.50 mL/min ()?? 12/10/2022 06:58 ? VIROLOGY COVID-19 by RT-PCR POSITIVE (Abnormal)?? 12/10/2022 03:56 ? Microbiology ?? COVID-19 (Novel Coronavirus), Rapid PCR?? Completed?? Source: Nasal Body Site: Nose Collected Dt/Tm: 12/10/2022 03:14 Last Updated Dt/Tm: 12/10/2022 05:03 ? _35 minutes spent on discharge Patient Care team information Care Team Personnel Name: Carissa Morales LPN Position: [facility] RN Member Role: Primary Care Nurse Name: Merlin Horn RN Position: [facility] RN Member Role: Primary Care Nurse Name: Raúl Kirk RN Position: [facility] RN Member Role: Primary Care Nurse Name: Angelo Mercado Position: Reference Physician Member Role: PCP Address: Address: [address] [place] [address] [address] [place] [address]- Name: Teofilo Wilks RN Position: [facility] RN Member Role: Primary Care Nurse Name: Stefania Mariee LPN Position: [facility] RN Member Role: Primary Care Nurse Name: Laura Grover RN Position: [facility] RN Member Role: Primary Care Nurse Name: Roxana Mackey Position: [facility] RN Member Role: Primary Care Nurse Name: Nick Carvajal MD Position: [facility] Renal MD Member Role: Lifetime Consulting Physician Address: Address: [address] [place] [address] [address] [facility] [place] [address]- [place] Name: Tiffany Mahajan RN Position: [facility] RN Member Role: Primary Care Nurse Name: Gisele Handy RN Position: [facility] ED RN W/OE and Tasks Member Role: Patient Care Provider Name: Roxana Burgos MD Position: [facility] ED Medicine MD Member Role: ED Attending Physician Address: Address: [address] [place] [address] Name: Jb Werner Position: [facility] Associate Professional Member Role: ED Physician Al[place]aca Farmer Address: Address: [address] [place] [address] Name: Fidel Devries RN Position: [facility] ED RN W/OE and Tasks Member Role: Patient Care Provider Care Team Related Persons Name: CASIMIRO DAVIS Address: [address] [place] [address] Name: NO HUMPHRIES Address: home
--- OUTSIDE RECORDS SUMMARY | 2023-02-08 09:21 | XMS_ITS | Continuity of Care Document ---
Author Name Unknown Organization [facility] Address [address] [place] [address] [place] [address]- Care Team Providers Care Flag Car Driver Name Role Phone Angelo Mercaod Primary Care Physician [phone] Encounter [facility] Date(s): 11/18/22 - 12/18/22 [facility] [address] [place] [address]- Allergies, Adverse Reactions, Alerts Substance Reaction Severity Status clindamycin swelling body Active amoxicillin Swelling of throat Active penicillins ear, face, throat sw elling rash Active Zithromax Bloody stool Diarrhea Active Peanuts Active ceFAZolin 1 Active sulfonamides body swelling rash Active Doxycyline hyclate 100mg capsule vomitin g, incontinence seizures rash sweeling Active Levaquin SPARKS - Headache Active Erythromycin [...] EDT, Route to Pharmacy Electronically, [id number], Partial fill upon patient request [...] Care Nurse Name: Merlin Horn RN Position: [facility] RN Member Role: Primary Care Nurse Name: Raúl Kirk RN Position: [facility] RN Member Role: Primary Care Nurse Name: Angelo Mercado Position: Reference Physician Member Role: PCP Address: Address: [address] [place], [place] [address] Name: Teofilo Wilks RN Position: [facility] RN Member Role: Primary Care Nurse Name: Stefania Mariee LPN Position: S RN Member Role: Primary Care Nurse Name: Laura Grover RN Position: S RN Member Role: Primary Care Nurse Name: Roxana Mackey Position: S RN Member Role: Primary Care Nurse Name: Nick Carvajal MD Position: [facility] Renal MD Member Role: Lifetime Consulting Physician Address: Address: [address] [facility] [address] [facility] [place] [address]- Name: Tiffany Mahajan RN Position: [facility] RN Member Role: Primary Care Nurse Care Team Related Persons Name: CASIMIRO DAVIS Address: home [address] [place] [address] Name: NO HUMPHRIES Address: home
--- OUTSIDE RECORDS SUMMARY | 2023-02-08 09:21 | XMS_ITS | Continuity of Care Document ---
Author Name Unknown Organization [facility] Address [address] [place] [id number]- Care Team Providers Care Orthopedics Pediatric Physician Name Role Phone Angelo Mercado Primary Care Physician Encounter [facility] Date(s): 12/26/22 - 01/25/23 [facility] Card[facility] Surgery [address] [place] [id number]- Allergies, Adverse Reactions, Alerts Substance Reaction Severity Status clindamycin swelling body Active amoxicillin Swelling of throat Active sulfonamides body swelling rash Active Other Food Allergy raisins, turnip, peanut butter Active Doxycyline hyclate 100mg capsule vomitin g, incontinence seizures rash sweeling Active ceFAZolin 1 Active penicillins ear, face, throat sw elling rash Active Zithromax Bloody stool Diarrhea Active Levaquin SPARKS - Headache Active Peanuts Active Erythromycin and Other Macro lides Causing Adverse Effects in Therapeutic Use Diarrhea sweeling rash Active 1lip and tongue sweling Medications acetaminophen [...] EDT, Route to Pharmacy Electronically, [id number], Partial fill upon patient request [...] bedtime, # 30 tablet, 0 Refills, Maintenance, 01/09/23 14:36:00 EDT, Tablet, [facility], Partial fill upon patient request if the prescription is for a schedule II opioid drug., 154, cm, 01/09/23 14:2... Start Date: 01/09/23 Status: Ordered metoprolol 50 mg oral tablet, extended release See Instructions, 1 tablet By Mouth Daily please hold for bp <100 and hr < 55, # 30 each, Refills 0, Tot. Refills 0, Maintenance, 01/09/23 14:36:00 EDT, Instructions Replace Required Details, Route to Pharmacy Electronically, [facility]... Start Date: 01/09/23 Status: Ordered Vitamin B6 100 mg oral [...] Reference Physician Member Role: PCP Address: Address: [address] [place] [address] [address] [place] [id number]- Name: Teofilo Wilks RN Position: S RN Member Role: Primary Care Nurse Name: Stefania Mariee LPN Position: S RN Member Role: Primary Care Nurse Name: Laura Grover RN Position: S RN Member Role: Primary Care Nurse Name: Roxana Mackey Position: S RN Member Role: Primary Care Nurse Name: Nick Carvajal MD Position: [facility] Renal MD Member Role: Lifetime Consulting Physician Address: Address: [address] [place] [address] [address] [facility] [place] [place] [address]- Care Team Related Persons Name: RYAN CASIMIRO Address: home [address] [place] [address] Name: NO HUMPHRIES Address: home
--- OUTSIDE RECORDS SUMMARY | 2023-02-08 09:21 | XMS_ITS | Continuity of Care Document ---
Author Name Unknown Organization [facility] [employer] Address [address] [place] [address]- Care Team Providers Care Wire Tester Name Role Phone Angelo Mercado Primary Care Physician Encounter [facility] Date(s): 11/11/20 - 12/11/20 [facility] [employer] [address] [place] [address]- Allergies, Adverse Reactions, Alerts Substance Reaction Severity [...] 0, Tot. Refills 0, Maintenance, for constipation, 04/08/21 16:40:00 EDT, Route to Pharmacy Electronically, [facility], Partial fill upon patient [...] Gm, 3 Refills, Maintenance, 11/06/20 13:33:00 EDT, [facility], Partial fill upon patient request [...] EDT, Route to Pharmacy Electronically, [facility], Partial fillupon patient request if [...]
--- OUTSIDE RECORDS SUMMARY | 2023-02-08 09:21 | XMS_ITS | Continuity of Care Document ---
Author Name Unknown Organization [facility] Address [address] [place] [address]- Care Team Providers Care Microbiology Instructor Name Role Phone Angelo Mercado Primary Care Physician [phone] [facility] [place] - 12/24/22 [facility] [address] [place] [address]- Attending Physician: James Purdy Admitting Physician: James Purdy Referring Physician: [id number] Allergies, Adverse Reactions, Alerts [...] Reference Physician Member Role: PCP Address: Address: [address] [place] [address] [address] [place] [address]- Name: Teofilo Wilks RN Position: S RN Member Role: Primary Care Nurse Name: Stefania Mariee LPN Position: S RN Member Role: Primary Care Nurse Name: Laura Grover RN Position: S RN Member Role: Primary Care Nurse Name: Roxana aMckey Position: S RN Member Role: Primary Care Nurse Name: Nick Carvajal MD Position: [facility] Renal MD Member Role: Lifetime Consulting Physician Address: Address: [address] [place] [address] [address] [facility], [place] [address]- Care Team Related Persons Name: CASIMIRO DAVIS Address: home [address] [place] [address] Name: NO HUMPHRIES Address: home
--- OUTSIDE RECORDS SUMMARY | 2023-02-08 09:21 | XMS_ITS | Continuity of Care Document ---
Author Name Unknown Organization [facility] Address [address] [place] [address]- Care Team Providers Care Window Shade Cloth Sewer Name Role Phone Angelo Mercado Primary Care Physician [phone] Encounter [facility] [place] Date(s): 08/12/20 - 09/17/[address] [address] Attending Physician: Antonio Rios NP Admitting Physician: [...] EDT, Route to Pharmacy Electronically, [facility], Partial fill upon [...] EDT, Route to Pharmacy Electronically, [facility], Partial fill upon patient request if the prescription is... Start Date: 09/03/20 Stop Date: 10/03/20 Status: Ordered MiraLax oral powder for reconstitution = 17 Gm, By Mouth, Daily, dissolve in water before taking, # 255 Gm, 0 Refills, Acute 10/03/20 0:00:00 EDT, 09/03/20 16:40:00 EDT, REC Powder, [facility], Partial fill upon [...] EDT, Route to Pharmacy Electronically, [facility], Partial fill upon [...]
--- OUTSIDE RECORDS SUMMARY | 2023-02-08 09:21 | XMS_ITS | Continuity of Care Document ---
Author Name Unknown Organization [facility] Address [address] [facility], [address]r d Floor, [address] [place] [address]- Care Team Providers Care System Sales Consultant Name Role Phone Angelo Mercado Primary Care Physician [phone] [place] [facility] [place]): [place]/14/20 - 08/21/20 [facility] [address] [place], 3rd Floor, [address] [place] [address]- Attending Physician: Gabriel ROLL UP MACHINE OPERATOR, Antonio Allergies, Adverse Reactions, Alerts Substance Reaction Severity [...]
--- OUTSIDE RECORDS SUMMARY | 2023-02-08 09:21 | XMS_ITS | Continuity of Care Document ---
Author Name Unknown Organization [facility] Address [address] [place] [address]- Care Team Providers Care Post Acute Care Nurse Practitioner Name Role Phone Angelo Mercado Primary Care Physician [place] [facility] [place](s[place] 08/18/20 - 09/17/[address] [address] Attending Physician: James Purdy Admitting Physician: AdmtrJames Referring Physician: Admtr, Ar8 Allergies, Adverse Reactions, [...]
--- OUTSIDE RECORDS SUMMARY | 2023-02-08 09:21 | XMS_ITS | Continuity of Care Document ---
Author Name Unknown Organization [facility] [employer] Address [address] [place] [address], [address] [place] [address]- Care Team Providers Care Composite Boat Builder Name Role Phone Angelo Mercado Primary Care Physician En[place] [facility] [place] Date(s): 09/28/20 - 10/28/20 [facility] [address] [facility], 4th [place] [address]- Allergies, Adverse Reactions, Alerts Substance Reaction Severity [...] 09/03/20 16:40:00 EDT, Route to Pharmacy Electronically, [facility], Partial fill upon [...]
--- OUTSIDE RECORDS SUMMARY | 2023-02-08 09:21 | XMS_ITS | Continuity of Care Document ---
Author Name Unknown Organization [facility] Address [address] [place] [address]- Care Team Providers Care Hooker On Name Role Phone Angelo Mercado Primary Care Physician [phone] Encounter [facility] Date(s): 10/19/22 - 10/26/22 [facility] [address] [place] [address] Attending Physician: Buster Patrick MD Referring Physician: Forest LEA, Bartolo Cruz Allergies, Adverse Reactions, Alerts Substance Reaction Severity [...] 10/13/22 11:52:00 EDT, Route to Pharmacy Electronically, [facility], Partial fill upon patient request if [...] tablet, 0 Refills, Maintenance,10/13/22 11:53:00 EDT, Tablet, [facility], Partial fill upon patient request if [...] 10/13/22 11:53:00 EDT, Route to Pharmacy Electronically, [facility], Partial fill upon patient request if [...] 11/12/22 11:54:00 EDT, 10/13/22 11:54:00 EDT, Capsule, [facility], Partial fill upon patient request if the prescription is for a sche... Start Date: 10/13/22 Stop Date: 11/12/22 Status: Ordered Lipitor 80 mg oral tablet 1 tablet = 80 mg, By Mouth, Daily at bedtime, # 30 tablet, 0 Refills, Maintenance, 10/13/22 11:52:00 EDT, Tablet, [facility], Partial fill upon patient request if [...] 10/13/22 11:57:00 EDT, Route to Pharmacy Electronically, [facility], Partial fill upon patient request if the prescription is for a schedule... Start Date: 10/13/22 Stop Date: 11/12/22 Status: Ordered Multivitamin Tablet 1 tablet, By Mouth, Daily, 0 Refills, Maintenance, 10/13/22 11:55:00 EDT, Tablet, Partial fill uponpatient request if the prescription is for a schedule II opioid drug. Start Date: 10/13/22 Status: Ordered nicotine 21 mg/24 hr transdermal film, extended release 1 patch, Topically, Daily, for 30 days, # 30 patch, 0 Refills, Acute 11/12/22 11:55:00 EDT, 10/13/22 11:55:00 EDT, Patch, [facility], Partial fill upon patient request if the prescription is for a schedule II opioid drug., 1 patch Topica... Start Date: 10/13/22 Stop Date: 11/12/22 Status: Ordered Probiotic + Colostrum [...] oldest [Reference Range]: 1 Height 154.94 cm (10/19/22 1:04 PM) Weight 86.3 kg (10/19/22 1:04 PM) Oxygen Saturation [94-100 %] 98 % (10/19/22 1:04 PM) Pulse Rate [55-90 bpm] 108 bpm *H* (10/19/22 1:04 PM) Body Mass Index [18.5-24.99 kg/m2] 35.95 kg/m2 *>HHI* (10/19/22 1:04 PM) Blood Pressure [90-138/55-84 mm Hg] 120/ 70mm Hg (10/19/22 1:04 PM) Respiratory Rate [16-30 br/min] 18 br/mi n (10/19/22 1:04 PM) Mode of Delivery (Oxygen) Room air (10/19/22 1:04 PM) Blood pressure sites Arm, right (10/19/22 1:04 PM) Weight Obtained Via Patient/family state d (10/19/22 1:04 PM) Social History Social History Type Response Smoking Status 5-9 cigarettes (betw een 1/4 to 1/2 pack)/day in last 30 days entered on: 07/19/19 Sex Patient Care team information Care Team [...] Reference Physician Member Role: PCP Address: Address: [address] [place] [address] [place] [address]- Name: Teofilo Wilks RN Position: S RN Member Role: Primary Care Nurse Name: Stefania Mariee LPN Position: S RN Member Role: Primary Care Nurse Name: Roxana Mackey Position: S RN Member Role: Primary Care Nurse Name: Tiffany Mahajan RN Position: S RN Member Role: Primary Care Nurse Care Team Related Persons Name: CASIMIRO DAVIS Address: [address] [place] [address] Name: NO HUMPHRIES Address: home
--- OUTSIDE RECORDS SUMMARY | 2023-02-08 09:21 | XMS_ITS | Continuity of Care Document ---
Author Name Unknown Organization [facility] Address [address] [place] [address]- Care Team Providers Care Vibrator Equipment Tester Name Role Phone Angelo Mercado Primary Care Physician Encounter [facility] [place] [facility] [id number] Date(s): 10/13/22 - 11/12/[address] [address] Attending Physician: Not on Staff, Attending MD Admitting Physician: Not on Staff, Admitting MD Referring Physician: Not on Staff, Referring [...] opioid drug. Start Date: 09/29/22 Status: Ordered aspirin 81 mg oral tablet, chewable 1 tablet = 81 mg, By Mouth, Daily, # 30 tablet, 0 Refills, Maintenance, 11/01/22 13:03:00 EDT, ChewTablet, [facility], Partial fill upon patient request if the prescription is for a schedule II opioid drug., 154.94, cm, 10/19/22 13:04:0... Start Date: 11/01/22 Stop Date: 12/01/22 Status: Ordered Aspirin Enteric Coated 81 mg oral delayed release tablet 90 each, 0 Refill(s), TAKE ONE TABLET BY MOUTH EVERY DAY, 0 Refills, 11/12/22 18:24:00 EDT, Partialfill upon patient request if the prescription is for a schedule II opioid drug. Start Date: 11/12/22 Status: Ordered Aspirin Tablet 81 mg, By Mouth, Daily, Refills 0, Maintenance, 10/13/22 11:52:00 EDT, Partial fill upon patient request if the prescription is for a schedule II opioid drug. Start Date: 10/13/22 Status: Ordered atorvastatin 80 mg oral tablet 90 each, 0 Refill(s), TAKE ONE TABLET BY MOUTH EVERY DAY IN THE EVENING., 0 Refills, 11/12/22 18:24:00 EDT, Partial fill upon patient request if the prescription is for a schedule II opioid drug. Start Date: 11/12/22 Status: Ordered baclofen 5 mg oral tablet 1 tablet = 5 mg, By Mouth, 3 times a day, PRN Pain , Moderate, # 21 tablet, 0 Refills, Maintenance,10/13/22 11:53:00 EDT, Tablet, [facility], Partial fill upon patient [...] opioid drug. Start Date: 11/12/22 Status: Ordered Lipitor 80 mg [...] opioid drug. Start Date: 09/29/22 Status: Ordered Miscellaneous Rx 0 Refills, 90 each, 0 Refill(s), TAKE ONE CAPSULE BY MOUTH EVERY DAY, 11/12/22 18:25:00 EDT Start Date: 11/12/22 Status: Ordered Multivitamin Tablet 1 [...] opioid drug. Start Date: 09/29/22 Status: Ordered Vitamin B6 100 mg oral [...] Physician Member Role: PCP Address: Address: [address] [place] [address] [address] [place], [place] [address] Name: Teofilo Wilks RN Position: S RN Member Role: Primary Care Nurse Name: Stefania Mariee LPN Position: S RN Member Role: Primary Care Nurse Name: Laura Grover RN Position: [facility] RN Member Role: Primary Care Nurse Name: Roxana Mackey Position: S RN Member Role: Primary Care Nurse Name: Tiffany Mahajan RN Position: S RN Member Role: Primary Care Nurse Care Team Related Persons Name: CASIMIRO DAVIS Address: home [address] [place] [address] Name: NO HUMPHRIES Address: home
--- OUTSIDE RECORDS SUMMARY | 2023-02-08 09:21 | XMS_ITS | Continuity of Care Document ---
Author Name Unknown Organization [facility] Address [address] [place] [address]- Care Team Providers Care Qa Reviewer Name Role Phone Angelo Mercado Primary Care Physician Encounter [facility] Date(s): 01/09/23 - 01/16/23 [facility] [address] [place] [address]- Attending Physician: Leland Mcknight MD Referring Physician: Angelo Mercado Allergies, Adverse [...] oldest [Reference Range]: 1 Height 154 cm (01/09/23 2:24 PM) Oxygen Saturation [94-100 %] 97 % (01/09/23 2:24 PM) Pulse Rate [55-90 bpm] 70 bpm (01/09/23 2:24 PM) Blood Pressure [90-138/55-84 mm Hg] 128/ 80mm Hg (01/09/23 2:24 PM) Respiratory Rate [16-30 br/min] 18 br/mi n (01/09/23 2:24 PM) Temperature [96.8-100.4 DegF] 98.4 DegF (01/09/23 2:24 PM) Mode of Delivery (Oxygen) Room air (01/09/23 2:24 PM) Blood pressure sites Arm, left (01/09/23 2:24 PM) Temperature Route Oral (01/09/23 2:24 PM) Social History Social History Type Response Smoking Status Former smoker, quit more than 30 days ago entered on: 11/24/22 Sex Note * Event Display: [facility] Office Note Authored Date: [id number] OFFICE NOTE DATE: 01/09/2023 REASON FOR VISIT: Wound check. HISTORY OF PRESENT ILLNESS: The patient is a 57-year-old female who underwent a CABG x3 on 10/05/[address] Buster Patrick. She required sternal wound debridement on 11/14 and had a wound VAC placedat that time. Since then, she has been coming in for wound VAC changes and, more recently, the wound was nearly healed and the wound VAC was discontinued and changed to dressing changes with Aquacel.Two weeks ago the incision was nearly completely healed, so the wound was dressed just with a dry dressing. She comes back today for another check. No fevers, chills, erythema, drainage, or other problems from the incision. PHYSICAL EXAMINATION: GENERAL: The patient is a well-appearing, middle-aged female sitting in a chair, in no distress. VITAL SIGNS: Temperature is 98.4, heart rate 70 bets per minute, respirations 18, blood pressure 128/80 mmHg, oxygen saturation 97%. CHEST: The incision is completely healed. There is a small amount of dry granulation tissue at the superior pole of the incision, but there is really no defect whatsoever. No drainage, no erythema, and no fluctuance. CARDIAC: Regular rate and rhythm. No murmurs. LUNGS: Clear to auscultation. ASSESSMENT AND PLAN: This is a 57-year-old female status post CABG in September, who had a wound debridement with dressing changes and now the wound is completely healed. I told her she does not need to keep the area covered anymore and can leave it open to air. She also tells me she has run out of her metoprolol and atorvastatin, so we will provide her with refills, but I did instruct her that, from this point forward, she should be dealing with her clinical pharmacy coordinator for any medication changes. She does not need to come back to our office. Thank you for this referral. Dictated by: Leland Mcknight MD Signing Clinician: Leland Mcknight MD Dictated: 01/09/2023 02:40:57 Transcribed: 10:15:47 AM Transcribed by: AFSANEH DocID: [id number] PRELIMINARY REPORT UNLESS MANUALLY/ELECTRONICALLY SIGNED cc: Angelo Kent [address] [place], [address] Patient Care team information Care Team Personnel Name: Carissa Morales LPN Position: [facility] RN Member Role: Primary Care Nurse Name: Merlin Horn RN Position: [facility] RN Member Role: Primary Care Nurse Name: Raúl Kirk RN Position: [facility] RN Member Role: Primary Care Nurse Name: Angelo Mercado Position: Reference Physician Member Role: PCP Address: Address: [address] [place] [address] [address] [place] [address]- Name: Teofilo Wilks RN Position: [facility] RN Member Role: Primary Care Nurse Name: Stefania Mariee LPN Position: [facility] RN Member Role: Primary Care Nurse Name: Laura Grover RN Position: [facility] RN Member Role: Primary Care Nurse Name: Roxana Mackey Position: [facility] RN Member Role: Primary Care Nurse Name: Nick Carvajal MD Position: [facility] Renal MD Member Role: Lifetime Consulting Physician Address: Address: [address] [place] [address] [address] [facility], [place] [address]- Care Team Related Persons Name: CASIMIRO DAVIS Address: home [address] [place] [address] Name: NO HUMPHRIES Address: home
--- OUTSIDE RECORDS SUMMARY | 2023-02-08 09:21 | XMS_ITS | Continuity of Care Document ---
Author Name Unknown Organization [facility]in [employer] Address [address] [place] [address], [address] [place] [address]- Care Team Providers Care Broomcorn Grader Name Role Phone Angelo Mercado Primary Care Physician Encounter [facility] [place] Date(s): 09/11/20 - 10/11/20 [facility] Cristinpaula Grande[facility] [address] [facility], [address] [place] [address]- Allergies, Adverse Reactions, Alerts Substance Reaction Severity Status clindamycin swelling body Active amoxicillin Swelling of throat Active penicillins ear, face, throat sw elling rash Active sulfonamides body swelling rash Active Zithromax Bloody stool Diarrhea Active Levaquin SPAKRS - Headache Active Erythromycin and Other Macro [...] 09/03/20 16:40:00 EDT, Route to Pharmacy Electronically, [facility], Partial fill upon patient [...]
--- OUTSIDE RECORDS SUMMARY | 2023-02-08 09:21 | XMS_ITS | Continuity of Care Document ---
Author Name Unknown Organization [facility] [employer]in [employer] Address [address] [place] [address], [address] [place] [address]- Care Team Providers Care Dry Color Tester Name Role Phone Angelo Mercado Primary Care Physician Encounter [facility] [place] Date(s): 09/02/20 - 10/02/20 [facility] Cristinpaula [facility] [employer] [address] [facility], [address] [place] [address]- Allergies, Adverse Reactions, Alerts Substance Reaction Severity [...] 09/03/20 16:40:00 EDT, Route to Pharmacy Electronically, [facility], Partial fill upon patient request [...]
--- OUTSIDE RECORDS SUMMARY | 2023-02-08 09:21 | XMS_ITS | Continuity of Care Document ---
Author Name Unknown Organization [facility]in [facility] Address [address] [facility], [address] [place] [address]- Care Team Providers Care Towel Hemmer Name Role Phone Angelo Mercado Primary Care Physician [phone] [place] [facility] [place]/22 - 09/28/22 [facility] [address] [facility], [address] [place], [place] [address] Attending Physician: James Purdy Admitting Physician: AdmtrJames Referring Physician: Admtr, Ar8 Allergies, Adverse Reactions, Alerts Substance Reaction Severity Status clindamycin swelling body Active amoxicillin Swelling of throat Active Levaquin SPARKS - Headache Active Doxycyline hyclate 100mg capsule vomitin g, [...] 8:37:00 EST Start Date: 07/19/19 Status: Ordered Estrace Vaginal Cream 0.1 mg/g See Instructions, 1 Gm Vaginally nightly for 2 weeks, then twice per week, # 127.5 Gm, 3 Refills, Maintenance, 11/06/20 13:33:00 EDT, [facility], Partial fill upon patient request if the prescription is for a schedule II opioid... Start Date: 11/06/20 Status: Ordered Flonase Daily, 0 Refills, Maintenance, 07/19/19 8:37:00 EST Start Date: 07/19/19 Status: Ordered mirabegron 25 mg oral tablet, extended release 1 tablet = 25 mg, By Mouth, Daily, do not crush or chew, # 30 tablet, 5 Refills, Maintenance, 07/15/22 10:44:00 EST, ER Tablet, [facility], Partial fill upon patient request if the prescription is for a schedule II opioid drug., 154, cm,... Start Date: 07/15/22 Status: Ordered PredniSONE By Mouth, Daily, 0 Refills, Maintenance, 11/06/20 13:23:00 EDT, Partial fill upon patient request if the prescription is for a schedule II opioid drug. Start Date: 11/06/20 Status: Ordered Xopenex Neb, 3 times a day, 0 Refills, Maintenance, 07/19/19 8:37:00 EST Start Date: 07/19/19 Status: Ordered Problem List Condition Confirmation Course [...] without status migrainosus, not intractable Confirmed Active Obese class I Confirmed Active Obstructive sleep apnea Confirmed Active Overactive bladder Confirmed Active Paresthesia of upper extremity Confirmed Active Venous insufficiency (chronic) (peripheral) Confirmed Active Moderate episode of recurrent major depressive disorder Confirmed Active Borderline high cholesterol Confirmed Active Sinusitis Confirmed Active Current smoker Confirmed Active Tobacco abuse Confirmed Active Vitamin D deficiency Confirmed Active 1Problem added by Discern Expert Social History Social History Type Response Smoking Status 5-9 cigarettes (betw een 1/4 to 1/2 pack)/day in last 30 days entered on: 07/19/19 Sex Patient Care team information Care Team Personnel Name: Angelo Mercado Position: Reference Physician Member Role: PCP Address: Address: [address] [place] [address]- Care Team Related Persons Name: CASIMIRO DAVIS Address: home [address] [place] [address] [place] [address] Name: NO HUMPHRIES Address: home
--- OUTSIDE RECORDS SUMMARY | 2023-02-08 09:21 | XMS_ITS | Continuity of Care Document ---
Author Name Unknown Organization [facility] Address [address] [place] [address] [place] [address]- Care Team Providers Care Color Shop Helper Name Role Phone Angelo Mercado Primary Care Physician Encounter [facility] [place] Date(s): 11/21/22 - 12/24/22 [facility] [address] [place] [address]- Attending Physician: Michelle LEA, Nneka La Referring Physician: Forest LEA, Bartolo Cruz Allergies, Adverse Reactions, Alerts Substance Reaction Severity Status clindamycin swelling body Active amoxicillin Swelling of throat Active Levaquin SPARKS - Headache Active Peanuts Active ceFAZolin 1 Active penicillins [...] Care Nurse Name: Merlin Horn RN Position: [facility] RN Member Role: Primary Care Nurse Name: Raúl Kirk RN Position: S RN Member Role: Primary Care Nurse Name: Angelo Mercado Position: Reference Physician Member Role: PCP Address: Address: [address] [place] [address] [address] [place] [address]- Name: Teofilo Wilks RN Position: S RN Member Role: Primary Care Nurse Name: Stefania Mariee LPN Position: S RN Member Role: Primary Care Nurse Name: Laura Grover RN Position: S RN Member Role: Primary Care Nurse Name: Roxana Mackey Position: S RN Member Role: Primary Care Nurse Name: Nick Carvajal MD Position: [facility] Renal MD Member Role: Lifetime Consulting Physician Address: Address: [address] [place] [address] [address] [facility], [place] [address]- Care Team Related Persons Name: CASIMIRO DAVIS Address: home [address] [facility] [address] Name: NO HUMPHRIES Address: home
--- OUTSIDE RECORDS SUMMARY | 2023-02-08 09:22 | XMS_ITS | Continuity of Care Document ---
Author Name Unknown Organization [facility] ter Address [address] [place] [address]- Care Team Providers Care Outside Plant Engineer Name Role Phone Angelo Mercado Primary Care Physician [phone] [place] [facility] [place] - 02/25/[address] [address]- Discharge Disposition: A-D/C Walkout Attending Physician: Not on Staff, Attending MD [...] 09/03/20 16:40:00 EDT, Route to Pharmacy Electronically, [facility], Partial fill upon patient [...] 3 Refills, Maintenance, 11/06/20 13:33:00 EDT, [facility], Partial fill upon patient request if [...] EDT, Route to Pharmacy Electronically, [facility], Partial fillupon patient request if [...] Tobacco abuse(Confirmed) Active Vitamin D deficiency(Confirmed) Active Results Radiology Reports * Exam Date Time Procedure Performing Provider Status 02/24/21 2:20 PM Chest 2 Views Frontal and Lat Jamilah Archera; Auth (Verified) Notes: (Chest 2 Views Frontal and Lat) Reason For Exam: Chest Pain;Other: RESULT: Chest 2 Views Frontal and Lat Chest 2 Views Frontal and Lat INDICATION: Shortness of breath. COMPARISON: None. FINDINGS: LINES AND TUBES: None. LUNGS AND PLEURA: Clear lungs. Normal pulmonary vascularity. No pleural effusion. No pneumothorax. HEART, MEDIASTINUM AND AISLINN: Heart is normal in size. Normal upper mediastinal and hilar contour. BONES AND SOFT TISSUES: Small linear radiodense focus in the soft tissue of the upper abdomen seen on lateral view, most likely surgical clip. IMPRESSION: No acute abnormality. I have personally reviewed the images and I agree with this report. WSN: [id number] Ordering Physician: Luis Cloud Dictated By: Zain Silverio MD Dictated Date/Time: 02/24/21 3:36 pm Reviewed By: Chandu Meza MD, V Signed By: Chandu Meza MD, V Signed Date/Time: 02/24/21 3:41 pm Transcribed By: HEATHER Transcribed Date/Time: 02/24/21 3:27 pm Vital Signs Most recent to oldest [Reference Range]: 1 2 3 Oxygen Saturation [94-100 %] 97 % (02/24/21 3:52 PM) 100 % (02/24/21 12:53 PM) 100 % (02/24/21 12:17 PM) Pulse Rate [55-90 bpm] 85 bpm (02/24/21 3:52 PM) 80 bpm (02/24/21 12:53 PM) 106 bpm *H* (02/24/21 12:17 PM) Blood Pressure [90-138/55-84 mm Hg] 151/91mm Hg *H* (02/24/21 3:52 PM) 169/91mm Hg *H* (02/24/21 12:53 PM) Respiratory Rate [16-30 br/min] 18 br/min (02/24/21 3:52 PM) 18 br/min (02/24/21 12:53 PM) Temperature [96.8-100.4 DegF] 98.4 DegF (02/24/21 12:53 PM) Mode of Delivery (Oxygen) Room air (02/24/21 3:52 PM) Room air (02/24/21 12:53 PM) Room air (02/24/21 12:17 PM) Blood pressure sites Arm, right (02/24/21 3:52 PM) Arm, left (02/24/21 12:53 PM) Temperature Route Oral (02/24/21 12:53 PM) Social History Social History Type Response Smoking Status 5-9 cigarettes (betw een 1/4 to 1/2 pack)/day in last 30 days entered on: 07/19/19 Sex
--- OUTSIDE RECORDS SUMMARY | 2023-02-08 09:22 | XMS_ITS | Continuity of Care Document ---
Author Name Unknown Organization [facility] [employer] Address [address] [place] [address]- Care Team Providers Care Formulator Name Role Phone Angelo Mercado Primary Care Physician Encounter [facility] [place] Date(s): 12/21/20 - 02/27/21 [facility] [employer] [facility] [address] [place] [address]- Attending Physician: Jeimy Galvan MD Admitting Physician: Jeimy Galvan MD Referring Physician: Angelo Mercado Allergies, Adverse Reactions, Alerts Substance Reaction Severity Status clindamycin swelling body Active amoxicillin Swelling of throat Active sulfonamides body swelling rash Active Zithromax Bloody stool Diarrhea Active Doxycyline hyclate 100mg capsule vomitin g, incontinence seizures rash sweeling Active penicillins ear, face, throat sw elling rash Active Levaquin SPARKS - Headache Active Erythromycin [...] Gm, 3 Refills, Maintenance, 11/06/20 13:33:00 EDT, [facility], Partial fill upon patient request [...] EDT, Route to Pharmacy Electronically, [facility], Partial fillupon patient request if [...]
--- OUTSIDE RECORDS SUMMARY | 2023-02-08 09:22 | XMS_ITS | Continuity of Care Document ---
Author Name Unknown Organization [facility] Address [address] [place] [address]- Care Team Providers Care Mate Chief Name Role Phone Angelo Mercado Primary Care Physician Encounter [facility] Date(s): 10/31/22 - 11/30/22 [facility] [address] [place] [address] Allergies, Adverse Reactions, Alerts Substance Reaction Severity [...] Physician Member Role: PCP Address: Address: [address] [place], [place] [address] Name: Teofilo Wilks RN Position: S RN Member Role: Primary Care Nurse Name: Stefania Mariee LPN Position: S RN Member Role: Primary Care Nurse Name: Laura Grover RN Position: S RN Member Role: Primary Care Nurse Name: Roxana Mackey Position: S RN Member Role: Primary Care Nurse Name: Nick Carvajal MD Position: [facility] Renal MD Member Role: Lifetime Consulting Physician Address: Address: [address] [place] [address] [address] [facility], [place] [address]- Name: Tiffany Mahajan RN Position: S RN Member Role: Primary Care Nurse Care Team Related Persons Name: CASIMIRO DAVIS Address: home [address] [place] [address] Name: NO HUMPHRIES Address: home
--- OUTSIDE RECORDS SUMMARY | 2023-02-08 09:22 | XMS_ITS | Continuity of Care Document ---
Author Name Unknown Organization [facility] [employer] Address [address], [address] [place] [address]- Care Team Providers Care Research Biologist Name Role Phone Angelo Mercado Primary Care Physician En[place] [facility] [place] Date(s): 06/29/22 - 07/29/22 [facility] [facility] [address] [place], [place] [address] Allergies, Adverse Reactions, Alerts Substance Reaction Severity Status clindamycin swelling body Active amoxicillin Swelling of throat Active penicillins ear, face, throat sw elling rash Active sulfonamides body swelling rash Active Levaquin SPARKS - Headache Active Erythromycin and Other Macro lides Causing Adverse Effects in Therapeutic Use Diarrhea sweeling rash Active Doxycyline hyclate 100mg capsule vomitin g, incontinence seizures rash sweeling Active Zithromax Bloody stool Diarrhea Active Other Food Allergy raisins, turnip, peanut [...] Physician Member Role: PCP Address: Address: [address] [place] [address]- Care Team Related Persons Name: CASIMIRO DAVIS Address: home [address] [place] [address] [place] [address] Name: NO HUMPHRIES Address: home
--- OUTSIDE RECORDS SUMMARY | 2023-02-08 09:22 | XMS_ITS | Continuity of Care Document ---
Author Name Unknown Organization [facility] [employer] Address [address] [place] [address], [address] [place] [address]- Care Team Providers Care Continuity Writer Name Role Phone Angelo Mercado Primary Care Physician [phone] [place] [facility] [place] 08/[place]/20 [facility] [address] [facility], [address] [place] [address]- Allergies, Adverse Reactions, Alerts Substance Reaction Severity [...]
--- OUTSIDE RECORDS SUMMARY | 2023-02-08 09:22 | XMS_ITS | Continuity of Care Document ---
Author Name Unknown Organization [facility] ter Address [address] [place] [address]- Care Team Providers Care Bilingual Teacher Name Role Phone Angelo Mercado Primary Care Physician [place] [facility] [place] - 01/02/[address] [address]- Attending Physician: Gianna Rosen MD Admitting Physician: [...] 09/03/20 16:40:00 EDT, Route to Pharmacy Electronically, [facility], Partial fill upon patient [...] EDT, Route to Pharmacy Electronically, [facility], Partial fillupon patient request if [...]
[2023-02-08 09:24] VITALS: BP 130/68; PULSE 68; TEMP 36.8; BMI 39.1
--- NOTE | 2023-02-08 09:24 | AM.OFFWIN_ITS ---
Intake Vital Signs 02/08/23 09:24 Height 5 ft Weight 200 lb BMI 39.1 BP 130/68 Blood Pressure Location Rt brachial Position Sitting Pulse 68 Pulse Source Pulse Oximeter Temp 98.2 F Temp Source Temporal Artery Scan Intake Visit Reasons: EP, Insect Bite on both lower legs Intake Note: pt is here for c/o insect bites on both lower legs Patient Tobacco Use Status: Former Tobacco user Quit Date: 2022 Allergies calcium [Calcium] Allergy (Severe, Verified 02/08/23 09:24) HIVES doxycycline [Doxycycline] Allergy (Severe, Verified 02/08/23 09:24) FACIAL SWELLING,almost killed pt,inhouse for weakness,,incontinence?seizures Penicillins Allergy (Severe, Verified 02/08/23 09:24) Facial Swelling lactose Allergy (Mild, Verified 02/08/23 09:24) Unknown amoxicillin Allergy (Unknown, Verified 02/08/23 09:24) Throat swelling azithromycin [AZITHROMYCIN] Allergy (Unknown, Verified 02/08/23 09:24) Bloody Diarrhea cefuroxime [CEFUROXIME] Allergy (Unknown, Verified 02/08/23 09:24) Angioedema ciprofloxacin [From Cipro] Allergy (Unknown, Verified 02/08/23 09:24) Unknown clindamycin [CLINDAMYCIN] Allergy (Unknown, Verified 02/08/23 09:24) Anaphylaxis erythromycin base Allergy (Unknown, Verified 02/08/23 09:24) Diarrhea iron Allergy (Unknown, Verified 02/08/23 09:24) Unknown levofloxacin [From Levaquin] Allergy (Unknown, Verified 02/08/23 09:24) Unknown peanut [Peanut] Allergy (Unknown, Verified 02/08/23 09:24) Itching penicillin V Allergy (Unknown, Verified 02/08/23 09:24) ears and face swell,throat swell Sulfa (Sulfonamide Antibiotics) [SULFA(SULFONAMIDE ANTIBIOTICS)] Allergy (Unknown, Verified 02/08/23 09:24) ANAPHYLAXIS, swelling body,welts cefazolin Adverse Reaction (Mild, Verified 02/08/23 09:24) Anaphylaxis RAISIN Allergy (Unknown, Uncoded 01/16/23 09:32) Itching TURNIPS Allergy (Unknown, Uncoded 01/16/23 09:32) Unknown cheetos Allergy (Uncoded 01/16/23 09:32) itchy, rash cranberry juice Allergy (Uncoded 01/16/23 09:32) mouth itchy, bumps grape juice Allergy (Uncoded 01/16/23 09:32) mouth itchy, bumps Medication List - Last Reconciled 02/08/23 by Alberto Vaz MD aspirin (Adult Aspirin Regimen) 81 mg PO DAILY 90 days atorvastatin 40 mg (1/2 x 80 mg) PO .mwf cholecalciferol (vitamin D3) 50 mcg PO DAILY clopidogrel 75 mg PO DAILY ferrous sulfate 325 mg PO DAILY 30 days levalbuterol tartrate 45 mcg/actuation 2 inhalations inhalation Q6H 30 days metoprolol succinate ER (Toprol XL) 25 mg PO DAILY pyridoxine (vitamin B6) 100 mg PO DAILY 90 days Do you need a note to return to daycare/school/sports/work: Yes HPI EP, Insect Bite on both lower legs HPI Details 57-year-old female presents to the [facility] for a sick visit. Patient has a rash around her ankles. The rash is very itchy. She was at a and at the [facility] where there was tall grass. [facility] Medical History (Updated 02/08/23 @ 09:47 by Alberto Vaz MD) CAD (coronary artery disease) IBS (irritable bowel syndrome) Exocrine pancreatic insufficiency Lichen sclerosus Cough Bilateral knee pain Rectal prolapse Pre-op examination Small intestinal bacterial overgrowth Appendicitis Kidney stone Carpal tunnel syndrome Right shoulder injury Vertigo Chronic headaches Diverticulosis Fibromyalgia Depression Surgical History (Updated 01/16/23 @ 10:11 by Rashad Crawley MD) S/P triple vessel bypass History of endometrial ablation History of esophagogastroduodenoscopy (EGD) Hx of colonoscopy Hx of carpal tunnel repair (~07/2019) Hx of rotator cuff surgery Hx of shoulder surgery Hx of appendectomy Hx of cholecystectomy Family History Father Myocardial infarction, Onset Age: 46 Mother Congestive heart failure Stomach problems Stomach ulcer Anxiety and depression Myocardial infarction, Onset Age: 50 Mental health disorder Sister Heart problem Myocardial infarction, Onset Age: 59 Sister Afib Brother Throat cancer Lung cancer Social History (Updated 01/16/23 @ 09:35 by INEZ Varela) Household Members: Family Housing: Apartment Alcohol intake: never Patient Tobacco Use Status: Former Tobacco user Quit Date: 2022 Tobacco use type: Cigarette Years Smoked: 30 +/- e-Cigarette/Vaping Use: Never Used Second Hand Smoke Exposure: No service: No Current occupational status: disabled 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 Cognitive needs: No Hearing needs: No Vision needs: Yes (Glasses) Female Reproductive History Menstrual Age of Menarche: 15 Physical Exam Vital Signs: Last Vital Signs Temp 98.2 F 02/08/23 09:24 Pulse 68 02/08/23 09:24 BP 130/68 02/08/23 09:24 BMI result Body Mass Index 39.1 Const General: cooperative and healthy appearing Nutritional Appearance: well nourished Orientation/consciousness: patient oriented x3 Limitations: no limitations HEENT Head: Yes normal to inspection Eyes General: appearance normal, both eyes and all related structures Neck Neck: Yes normal visual inspection Chest Chest palpation & inspection: normal palpation of entire chest wall Resp Effort & Inspection: normal respiratory effort Skin Other: Erythematous rash around the ankles with few vesicles seen. Neuro General: patient oriented x3 Assessment & Plan Assessment & Plan (1) Contact dermatitis: Code(s): L25.9 - Unspecified contact dermatitis, unspecified cause Qualifiers: Contact dermatitis type: allergic Contact dermatitis trigger: non-food plants Qualified Code(s): L23.7 - Allergic contact dermatitis due to plants, except food Plan: Prednisone for three days. If sx worsen to follow up here. Coding Level of Care Code Est Pt Level 3 (22310) Diagnoses Allergic contact dermatitis due to plants, except food L23.7 Contact dermatitis type: allergic Contact dermatitis trigger: non-food plants
== END 2023-02-08 09:39 | disposition home or self-care (01) ==
PROVIDERS: PCP Physician Assistant; Visit Provider Internal Medicine
DX: L23.7 Allergic contact dermatitis due to plants, except food (principal)
CPT/HCPCS: 99213

== ENCOUNTER 2023-02-14 10:43 | Emergency (ER) | payer MEDICARE, MEDICAID, SELFPAY ==
[2023-02-14] VITALS (9 sets, daily range): BP systolic 125–210; BP diastolic 66–105; PULSE 73–95; RESP 14–16; TEMP 36.6–36.9; O2SAT 96–100; BMI 39.1
--- NOTE | ~2023-02-14 | CT_ITS ---
EXAMINATION: CT CHEST WITH CONTRAST CLINICAL INFORMATION: Chest pain. Retrosternal pain. Postop CABG. COMPARISON: Previous chest x-ray most recent from earlier the same day and cisternal x-ray October 2022 TECHNIQUE: Multidetector volumetric CT imaging of the chest was obtained after the administration of 65 mL of Omnipaque 350 intravenous contrast without immediate adverse reactions. Axial MIP volume rendering provided. Sagittal and coronal reformatted images were obtained. This CT examination was performed using dose optimization techniques as appropriate, variously including the following: *Automated exposure control *Adjustment of mA and/or kV according to patient size (this includes techniques or standardized protocols for targeted exams where dose is matched to indication/reason for exam; i.e. extremities or head) *Use of iterative reconstruction technique DLP: 499 mGy-cm FINDINGS: LUNGS: The lungs are clear with no evidence of inflammation or nodules. MEDIASTINUM: Post-CABG changes. Upper normal heart size. No pericardial effusion. Normal caliber thoracic aorta. No adenopathy. PLEURA: There is no pleural effusion. No pleural mass or thickening. AXILLA: No lymphadenopathy. UPPER ABDOMEN: Small stone in the upper pole of the left kidney. The gallbladder has been removed. OSSEOUS STRUCTURES: Ununited median sternotomy with cerclage wires and screws. Surgical hardware appears intact. No fluid collection superficial or deep to the sternum seen. CT/CT chest w IV con IMPRESSION: Ununited median sternotomy with cerclage wires and plates and screws. Surgical hardware appears intact. No parasternal fluid collection. Fleischner guidelines were followed.
--- NOTE | ~2023-02-14 | XR_ITS ---
EXAMINATION: XR CHEST CLINICAL INFORMATION: Chest pain and shortness of breath COMPARISON: 11/07/2022 TECHNIQUE: Frontal view of the chest was obtained. FINDINGS: Unchanged sternal hardware. Heart, mediastinum, pulmonary vessels and lung almanza within normal limits. Bony structures are intact. XR/XR chest 1V IMPRESSION: No acute cardiopulmonary disease or interval change.
--- NOTE | 2023-02-14 10:48 | ECG_ITS ---
Test Reason : CP,SOB Blood Pressure : / mmHG Vent. Rate : 083 BPM Atrial Rate : 083 BPM P-R Int : 156 ms QRS Dur : 080 ms QT Int : 366 ms P-R-T Axes : 065 051 073 degrees QTc Int : 430 ms Normal sinus rhythm Normal ECG When compared with ECG of 29-SEP-2022 15:18, No significant change was found Referred By: Generic ED Physician Electronically Signed By:NAZ BEARD
--- NOTE | 2023-02-14 11:04 | ED.CHESTPAIN ---
HPI - Chest Pain General Chief Complaint: Chest Pain Stated Complaint: CP/SOB Time Seen by Provider: 02/14/23 10:55 Source: patient and EMS Mode of arrival: EMS Limitations: no limitations History of Present Illness HPI narrative: 57-year-old female came in by ambulance for evaluation of chest pain. Patient was feeling normal when she woke up then shortly after she started give a bath to her kitten started to have shortness of breath and tightness in her chest, mild chest pain with no radiation, associated with shortness of breath, no coughing, no fever, no chills, no sick contacts, no recent travel. Patient had non STEMI and CABG for a triple coronary artery disease bypass if that was complicated by sternal wound infection needed wound VAC and extensive antibiotic since then patient been having chronic chest pain. Patient is a former smoker. Related Data Home Medications Medication Instructions Recorded Confirmed clopidogrel 75 mg tablet 75 mg PO DAILY 11/03/22 02/08/23 Previous Rx's Medication Instructions Recorded pyridoxine (vitamin B6) 100 mg 100 mg PO DAILY 90 days #90 tabs 10/14/21 tablet cholecalciferol (vitamin D3) 50 50 mcg PO DAILY #90 caps 07/21/22 mcg (2,000 unit) capsule aspirin 81 mg tablet,delayed 81 mg PO DAILY 90 days #90 tabs 11/03/22 release (Adult Aspirin Regimen) levalbuterol tartrate 45 2 inh inhalation Q6H 30 days #15 11/22/22 mcg/actuation aerosol inhaler grams ferrous sulfate 325 mg (65 mg 325 mg PO DAILY 30 days #30 tabs 12/12/22 iron) tablet atorvastatin 80 mg tablet 40 mg (1/2 x 80 mg) PO .mwf #1 tab 01/16/23 metoprolol succinate 25 mg 25 mg PO DAILY #60 tabs 01/16/23 tablet,extended release 24 hr (Toprol XL) prednisone 20 mg tablet 60 mg (3 x 20 mg) PO DAILY #9 tabs 02/08/23 mupirocin 2 % topical ointment 1 appl topical BID 10 days #22 02/13/23 grams Allergies Allergy/AdvReac Type Severity Reaction Status Date / Time calcium [Calcium] Allergy Severe HIVES Verified 02/08/23 09:24 doxycycline [Doxycycline] Allergy Severe FACIAL Verified 02/08/23 09:24 SWELLING,almost killed pt,inhouse for weakness,,incontinence?seizures Penicillins Allergy Severe Facial Verified 02/08/23 09:24 Swelling lactose Allergy Mild Unknown Verified 02/08/23 09:24 amoxicillin Allergy Unknown Throat Verified 02/08/23 09:24 swelling azithromycin [AZITHROMYCIN] Allergy Unknown Bloody Verified 02/08/23 09:24 Diarrhea cefuroxime [CEFUROXIME] Allergy Unknown Angioedema Verified 02/08/23 09:24 ciprofloxacin [From Cipro] Allergy Unknown Unknown Verified 02/08/23 09:24 clindamycin [CLINDAMYCIN] Allergy Unknown Anaphylaxis Verified 02/08/23 09:24 erythromycin base Allergy Unknown Diarrhea Verified 02/08/23 09:24 iron Allergy Unknown Unknown Verified 02/08/23 09:24 levofloxacin [From Levaquin] Allergy Unknown Unknown Verified 02/08/23 09:24 peanut [Peanut] Allergy Unknown Itching Verified 02/08/23 09:24 penicillin V Allergy Unknown ears and Verified 02/08/23 09:24 face swell,throat swell Sulfa (Sulfonamide Allergy Unknown ANAPHYLAXIS, Verified 02/08/23 09:24 Antibiotics) swelling [SULFA(SULFONAMIDE body,welts ANTIBIOTICS)] cefazolin AdvReac Mild Anaphylaxis Verified 02/08/23 09:24 RAISIN Allergy Unknown Itching Uncoded 01/16/23 09:32 TURNIPS Allergy Unknown Unknown Uncoded 01/16/23 09:32 cheetos Allergy itchy, rash Uncoded 01/16/23 09:32 cranberry juice Allergy mouth Uncoded 01/16/23 09:32 itchy, bumps grape juice Allergy mouth Uncoded 01/16/23 09:32 itchy, bumps Review of Systems Review of Systems: All other systems are reviewed and are negative Constitutional: Reports as per HPI and Reports no additional constitutional complaints Eyes: Reports as per HPI and Reports no additional eye complaints Reports system reviewed and no additional complaints, except as documented Cardiovascular: Reports as per HPI and Reports no additional cardiovascular complaints Respiratory: Reports as per HPI and Reports no additional respiratory complaints Gastrointestinal: Reports as per HPI and Reports no additional gastrointestinal complaints Genitourinary: Reports no additional female genitourinary complaints Musculoskeletal: Reports no additional musculoskeletal complaints Skin/Breast: Reports system reviewed and no additional complaints, except as docu Psychiatric: Reports no additional psychiatric complaints Endocrine: Reports no additional endocrine complaints Hematologic/Lymphatic: Reports no additional hematologic/lymphatic complaints Allergic/Immunologic: Reports no additional allergic/immunologic complaints Reports system reviewed and no additional complaints, except as documented and Reports Abnormal speech present COUNTS INCLUDE 234 BEDS AT THE [facility] Past Medical History Medical History CAD (coronary artery disease) IBS (irritable bowel syndrome) Exocrine pancreatic insufficiency Lichen sclerosus Cough Bilateral knee pain Rectal prolapse Pre-op examination Small intestinal bacterial overgrowth Appendicitis Kidney stone Carpal tunnel syndrome Right shoulder injury Vertigo Chronic headaches Diverticulosis Fibromyalgia Depression Surgical History S/P triple vessel bypass History of endometrial ablation History of esophagogastroduodenoscopy (EGD) Hx of colonoscopy Hx of carpal tunnel repair (~07/2019) Hx of rotator cuff surgery Hx of shoulder surgery Hx of appendectomy Hx of cholecystectomy Family History Family History Father Myocardial infarction, Onset Age: 46 Mother Congestive heart failure Stomach problems Stomach ulcer Anxiety and depression Myocardial infarction, Onset Age: 50 Mental health disorder Sister Heart problem Myocardial infarction, Onset Age: 59 Sister Afib Brother Throat cancer Lung cancer Social History Social History Household Members: Family Housing: Apartment Alcohol intake: never Patient Tobacco Use Status: Former Tobacco user Quit Date: 2022 Tobacco use type: Cigarette Years Smoked: 30 +/- Smoked in Last 30 Days: No e-Cigarette/Vaping Use: Never Used Second Hand Smoke Exposure: No Use of substances other than those prescribed or required for medical reasons: No Advance Directives: No Advance Directives Information Provided: Yes Patient : No service: No Current occupational status: disabled 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 Blood pressure elevated. Heart rate normal. Respiratory rate normal. Temperature normal. Oxygen saturation normal. Appearance: Alert. Oriented X3. No acute distress. Head: Normal external exam. Normocephalic. Atraumatic. No Christianson signs noted. No raccoon eyes noted Eyes: PERRLA. EOMI. Conjunctiva and sclera normal. Eyelids normal. ENT: TM's Normal. Pharynx normal. Uvula midline. Moist mucous membranes. No trismus noted. No drooling noted. No muffled voice noted. Neck: Normal inspection. Neck supple. FROM. No adenopathy. Thyroid Normal. No meningeal signs. No neck mass noted. CVS: Normal heart rate and rhythm. Heart sound normal. No murmurs noted. Pulses normal throughout. Respiratory: No respiratory distress. Painless inspiration. Breath sounds normal. No wheezes/rales/rhonchi noted. Chest nontender. No accessory muscle usage noted or decreased air movement noted. Abdomen: Soft and nontender. Bowel sounds normal in all 4 quadrants. No distention noted. No organomegaly noted. No visible injury noted. Back: No CVA tenderness. Full range of motion noted. Skin: Skin warm and dry. Normal skin color. Normal skin turgor. No rashes/lesions/lacerations noted. Extremities: No lower extremity edema. Extremities exhibit normal range of motion. Extremities nontender. Neuro: Oriented X 3. Cranial nerve exam: II-XII are grossly intact No motor deficit. No sensory deficit. Reflexes normal. Course Course Course Narrative: 57-year-old female history of coronary artery disease s/p CABG 3 vessels bypass, patient been having chronic incisional chest pain after the surgery, patient had a negative D-dimer, unremarkable chest x-ray, troponin x2 is negative with unremarkable EKG, vital sign has been stable while she is in the emergency department. Will reassure the patient and send the patient to Dr. Quinn. Reevaluation(s) Reevaluation #1: Chest pain, 2nd troponin found to be elevated the case discussed with Dr. Crawley who recommended a 3rd troponin. Case was signed out to . Time: 15:50 Medical Decision Making Differential Diagnosis Differential Diagnoses: The differential diagnosis associated with the presentation includes (ACS, pulmonary embolism, pneumonia, pneumothorax, chest wall pain, severe anemia, electrolyte abnormality.) Admission/Observation Consideration of admission/observation: Escalation of care including admission/observation considered Lab Data MDM Lab Attestation statement: I reviewed the patient's lab results. 02/14/23 11:19 02/14/23 11:19 Labs: Lab Results 02/14/23 02/14/23 Range/Units 11:19 14:54 WBC 10.5 (4.8-10.8) X10*3/uL RBC 4.94 (4.20-5.50) X10*6/uL Hgb 12.3 (12.0-16.0) g/dl Hct 39.7 (37.0-47.0) % MCV 80.4 (80.0-98.0) fL MCH 24.9 L (27.0-33.0) pg MCHC 31.0 (31.0-35.0) g/dl RDW 16.5 H (11.0-16.0) % Plt Count 382 (160-400) X10*3/uL MPV 10.0 (9.4-12.3) fL Immature Gran % (Auto) 0.5 H (0.0-0.4) % Neut % (Auto) 64.3 (45-73) % Lymph % (Auto) 22.8 (20-40) % [place] % (Auto) 7.7 (2-11) % Eos % (Auto) 3.9 (0-4) % Baso % (Auto) 0.8 (0-2) % Lymph # (Auto) 2.4 (1.2-4.9) X10*3/uL [place] # (Auto) 0.8 (0.1-1.2) X10*3/uL Eos # (Auto) 0.4 (0.0-0.4) X10*3/uL Baso # (Auto) 0.1 (0.0-0.2) X10*3/uL Abs Immat Gran (auto) 0.05 H (0.00-0.03) X10*3/uL Absolute Neuts (auto) 6.7 (2.0-8.3) x10*3/uL Absolute Nucleated RBC 0.000 (0.0-0.012) X10*3/uL Nucleated RBC % (auto) 0.0 (0.0-0.2) /100WBC D-Dimer High Sensitivty < 150 NG/ML Sodium 139 (135-145) mmol/L Potassium 4.6 (3.3-5.1) mmol/L Chloride 107 (96-108) mmol/L Carbon Dioxide 27 (22-29) mmol/L Anion Gap 10 L (12-20) BUN 17 H (9-16) mg/dL Creatinine 0.88 (0.5-1.4) mg/dL Estim Creat Clear Calc 69.9 Estimated GFR > 60 Random Glucose 103 (60-115) mg/dL Calcium 9.8 (8.4-10.2) mg/dL Total Bilirubin 0.3 (0.0-1.0) mg/dL Direct Bilirubin 0.1 (0.0-0.5) mg/dL AST 13 (5-31) U/L ALT 17 (0-31) U/L Alkaline Phosphatase 102 (39-117) U/L Troponin I High Sens < 2.7 D 21.7 H D (<3.5-17.0) ng/L Total Protein 7.4 (6.5-8.0) g/dL Albumin 3.9 (3.5-5.0) g/dL Lipase 13 (8-78) U/L Independent Interpretation I performed an independent interpretation of an: EKG (Normal sinus rhythm at 83 beats per minute, normal axis deviation, normal intervals, no change from previous EKG.) and Plain X-Ray (Chest: No acute intrathoracic pathology.) Radiology Impression Discussion of test interpretation with radiology: I have reviewed the radiologist's reading. Discharge Plan Discharge Clinical Impression: Chest pain Patient Disposition: Still a Patient Instructions: Chest Pain (ED) Prescriptions: No Action cholecalciferol (vitamin D3) 50 mcg (2,000 unit) capsule 50 mcg PO DAILY Qty: 90 3RF levalbuterol tartrate 45 mcg/actuation HFA aerosol inhaler 2 inh inhalation Q6H 30 Days Qty: 15 3RF mupirocin 2 % ointment 1 appl topical BID 10 Days Qty: 22 0RF ferrous sulfate 325 mg (65 mg iron) tablet 325 mg PO DAILY 30 Days Qty: 30 2RF clopidogrel 75 mg tablet 75 mg PO DAILY aspirin [Adult Aspirin Regimen] 81 mg tablet,delayed release (DR/EC) 81 mg PO DAILY 90 Days Qty: 90 3RF prednisone 20 mg tablet 60 mg PO DAILY Qty: 9 0RF pyridoxine (vitamin B6) 100 mg tablet 100 mg PO DAILY 90 Days Qty: 90 3RF metoprolol succinate [Toprol XL] 25 mg tablet extended release 24 hr 25 mg PO DAILY Qty: 60 3RF atorvastatin 80 mg tablet 40 mg PO .[facility] Qty: 1 0RF Referrals: Angelo Tejada PA-C [Primary Care Provider] -
--- NOTE | 2023-02-14 11:12 | PC.NURSE ---
pt a&ox3, vss, nsr on the grocery supervisor. pt biba d/t SOB/non-radiating substernal chest pain that started about a half an hour ago. pt denies n/v/d/recent sick contacts/recent travel. lung sounds clear throughout upon auscultation. pt able to speak in full, clear sentences w/o difficulty. no WOB noted. respirations even and unlabored. call ramirez placed within reach.
[2023-02-14 11:26] LABS: MANUAL DIFF FLAG NO
[2023-02-14 11:27] LABS: Basophils Absolute Auto 0.1 X10*3/uL (0.0-0.2); Basophils Percent Auto 0.8 % (0-2); Eosinophils Absolute Auto 0.4 X10*3/uL (0.0-0.4); Eosinophils Percent Auto 3.9 % (0-4); Hematocrit 39.7 % (37.0-47.0); Hemoglobin 12.3 g/dl (12.0-16.0); Imm Gran Abs Auto 0.05 X10*3/uL (0.00-0.03); Imm Gran Pct Auto 0.5 % (0.0-0.4); Lymphocytes Absolute Auto 2.4 X10*3/uL (1.2-4.9); Lymphocytes Percent Auto 22.8 % (20-40); Mean Corpuscular Hemoglobin 24.9 pg (27.0-33.0); Mean Corpuscular Volume 80.4 fL (80.0-98.0); Monocytes Absolute Auto 0.8 X10*3/uL (0.1-1.2); Monocytes Percent Auto 7.7 % (2-11); Neutrophils Absolute Auto 6.7 x10*3/uL (2.0-8.3); Neutrophils Percent Auto 64.3 % (45-73); Platelet Count 382 X10*3/uL (160-400); Red Blood Count 4.94 X10*6/uL (4.20-5.50); Red Cell Distribution Width 16.5 % (11.0-16.0); White Blood Count 10.5 X10*3/uL (4.8-10.8)
[2023-02-14 11:40] LABS: Anion Gap 10 (12-20); Blood Urea Nitrogen 17 mg/dL (9-16); Calcium 9.8 mg/dL (8.4-10.2); Carbon Dioxide 27 mmol/L (22-29); Chloride 107 mmol/L (96-108); Creatinine Clr Calc Pharmacy 69.9; Estimated Glomerular Filt Rate > 60; Glucose Random 103 mg/dL (60-115); Potassium 4.6 mmol/L (3.3-5.1); Sodium 139 mmol/L (135-145)
--- OUTSIDE RECORDS SUMMARY | 2023-02-14 11:44 | XMS_ITS | Continuity of Care Document ---
Author Name Unknown Organization [facility]any Address [address] [place] [id number]- Care Team Providers Care Sales Planning Analyst Name Role Phone Angelo Mercado Primary Care Physician Encounter [facility] Date(s): 01/09/23 - 02/08/23 [facility] [address] [place] [id number]- Attending Physician: James Purdy Admitting Physician: AdmJames fairbanks Referring Physician: AdmtrJames Allergies, Adverse Reactions, Alerts [...] Care Nurse Name: Merlin Horn RN Position: [facility] RN Member Role: Primary Care Nurse Name: Raúl Kirk RN Position: [facility] RN Member Role: Primary Care Nurse Name: Angelo Mercado Position: Reference Physician Member Role: PCP Address: Address: [address] [place] [address] [address] [place] [address]- Name: Teofilo Wilks RN Position: [facility] RN Member Role: Primary Care Nurse Name: Stefania Mariee LPN Position: S RN Member Role: Primary Care Nurse Name: Laura Grover RN Position: S RN Member Role: Primary Care Nurse Name: Roxana Mackey Position: S RN Member Role: Primary Care Nurse Name: Nick Carvajal MD Position: [facility] Renal MD Member Role: Lifetime Consulting Physician Address: Address: [address] [place] [address] [address] [facility] [place], [place] [address]- Care Team Related Persons Name: CASIMIRO DAVIS Address: home [address] [place] [address] Name: NO HUMPHRIES Address: home
[2023-02-14 11:46] LABS: D Dimer High Sensitivity < 150 NG/ML
[2023-02-14 11:49] LABS: Troponin-I High Sensitivity < 2.7 ng/L (<3.5-17.0)
--- NOTE | 2023-02-14 12:35 | PC.NURSE ---
pt remains a&ox3, vss, nsr on the head of cytogenetics. pt verbalizes that pain in chest has decreased since coming into the ER. pt resting comfortably in no apparent distress. respirations even and unlabored. call ramirez placed within reach.
[2023-02-14 12:59] LABS: Alanine Aminotransferase 17 U/L (0-31); Albumin Level 3.9 g/dL (3.5-5.0); Alkaline Phosphatase 102 U/L (39-117); Aspartate Amino Transferase 13 U/L (5-31); Bilirubin Direct 0.1 mg/dL (0.0-0.5); Bilirubin Total 0.3 mg/dL (0.0-1.0); Lipase 13 U/L (8-78); Total Protein 7.4 g/dL (6.5-8.0)
--- NOTE | 2023-02-14 13:59 | PC.NURSE ---
pt moved from ED4 to hallway d/t increased emotions after code occurred in ED5. pt just moved from hallway to ED3. pt resting comfortably in no apparent distress. vss and up to date. nsr on the monitoring engineer. pt taken on oxygen via nasal cannula. pt tolerating transition to RA well. pt satting at 98%. respirations even and unlabored. call ramirez placed within reach.
--- NOTE | 2023-02-14 14:55 | PC.NURSE ---
tech bedside drawing repeat troponin.
[2023-02-14 15:39] LABS: Troponin-I High Sensitivity 21.7 ng/L (<3.5-17.0)
--- NOTE | 2023-02-14 15:50 | PC.NURSE ---
pt continues to remain a&ox3, vss and up to date, nsr on the security monitor. pt verbalizes that pain has decreased ED arrival. pt resting comfortably in no apparent distress randall. respirations even and unlabored. call ramirez placed within reach.
--- NOTE | 2023-02-14 15:54 | PC.NURSE ---
pt aware of plan of care at this time. pt notified that they will draw repeat troponin at 1730 d/t last troponin being elevated.
--- NOTE | 2023-02-14 17:56 | MHC.EDTECH ---
Labs collected and sent to lab
[2023-02-14 18:08] LABS: Troponin-I High Sensitivity 18.3 ng/L (<3.5-17.0)
[2023-02-14] MEDS: Nitroglycerin 2 % Oint 1 GM Packet 1 INCH TRANSDERMA (18:27)
--- NOTE | 2023-02-14 18:33 | PC.NURSE ---
pt was c/o chest discomfort. provider aware. nitropaste applied to left side of chest wall per provider order. pt's BP cycling at q15min. pt resting comfortably in no apparent distress. respirations even and unlabored. call ramirez placed within reach.
--- NOTE | 2023-02-14 19:02 | PC.NURSE ---
pt verbalizing that chest tightness has slightly decreased since nitro administration. pt denies headache and BP wnl at this time.
[2023-02-14] MEDS: iohexoL 350 MG/ML 100 ML INFUS..BTL IV (19:45)
== END 2023-02-14 22:30 | disposition home or self-care (01) ==
PROVIDERS: Emergency Provider Emergency Medicine; PCP Physician Assistant
DX: R07.9 Chest pain, unspecified (principal); Z87.891 Personal history of nicotine dependence; Z79.899 Other long term (current) drug therapy
CPT/HCPCS: 36415; 71045; 71260; 80048; 80076; 83690; 84484; 85025; 85379; 93005; 99285; Q9967

== ENCOUNTER 2023-04-07 10:45 | Outpatient (AMB) | payer MEDICARE, MEDICAID, SELFPAY ==
--- NOTE | 2023-04-07 10:48 | A.OFFVIS_ITS ---
Intake Vital Signs 04/07/23 10:51 Height 5 ft BMI Reason not done Patient refused/unable BP 110/72 Blood Pressure Location Lt brachial Position Sitting Pulse 97 Intake Visit Reasons: prev KM/ follow up Intake Note: follow up Buyer Assistant Required: No Accompanied by: Family/Other Allergies calcium [Calcium] Allergy (Severe, Verified 04/07/23 10:49) HIVES doxycycline [Doxycycline] Allergy (Severe, Verified 04/07/23 10:49) FACIAL SWELLING,almost killed pt,inhouse for weakness,,incontinence?seizures Penicillins Allergy (Severe, Verified 04/07/23 10:49) Facial Swelling lactose Allergy (Mild, Verified 04/07/23 10:49) Unknown amoxicillin Allergy (Unknown, Verified 04/07/23 10:49) Throat swelling azithromycin [AZITHROMYCIN] Allergy (Unknown, Verified 04/07/23 10:49) Bloody Diarrhea cefuroxime [CEFUROXIME] Allergy (Unknown, Verified 04/07/23 10:49) Angioedema ciprofloxacin [From Cipro] Allergy (Unknown, Verified 04/07/23 10:49) Unknown clindamycin [CLINDAMYCIN] Allergy (Unknown, Verified 04/07/23 10:49) Anaphylaxis erythromycin base Allergy (Unknown, Verified 04/07/23 10:49) Diarrhea iron Allergy (Unknown, Verified 04/07/23 10:49) Unknown levofloxacin [From Levaquin] Allergy (Unknown, Verified 04/07/23 10:49) Unknown peanut [Peanut] Allergy (Unknown, Verified 04/07/23 10:49) Itching penicillin V Allergy (Unknown, Verified 04/07/23 10:49) ears and face swell,throat swell Sulfa (Sulfonamide Antibiotics) [SULFA(SULFONAMIDE ANTIBIOTICS)] Allergy (Unknown, Verified 04/07/23 10:49) ANAPHYLAXIS, swelling body,welts cefazolin Adverse Reaction (Mild, Verified 04/07/23 10:49) Anaphylaxis RAISIN Allergy (Unknown, Uncoded 04/07/23 10:49) Itching TURNIPS Allergy (Unknown, Uncoded 04/07/23 10:49) Unknown cheetos Allergy (Uncoded 04/07/23 10:49) itchy, rash cranberry juice Allergy (Uncoded 04/07/23 10:49) mouth itchy, bumps grape juice Allergy (Uncoded 04/07/23 10:49) mouth itchy, bumps Medication List - Last Reconciled 04/07/23 by Peter Quinn MD albuterol sulfate 2.5 mg (3 mL) inhalation Q6H PRN 15 days aspirin (Adult Aspirin Regimen) 81 mg PO DAILY 90 days cholecalciferol (vitamin D3) 50 mcg PO DAILY clopidogrel 75 mg PO DAILY levalbuterol tartrate 45 mcg/actuation 2 inhalations inhalation Q6H 30 days HPI HPI Comments History of Present Illness Details Yomaira is coming to my clinic for the 1st time. She has seen prior to this but would like to switch. Notes were reviewed. Few months back, she was apparently admitted for NSTEMI. Then underwent cardiac catheterization showing multivessel disease leading to bypass surgery. That was in turn complicated by sternal wound infection requiring debridement and she apparently had wound VAC followed by antibiotics. 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 The pains are musculoskeletal and non anginal. She also apparently has been having low blood pressures and hence has stop taking her beta-blockers. With regard to statins, not able to take atorvastatin due to lot of muscle ache s. She is concerned about some numbness in the legs where the vein grafts were taken. Mild leg swelling as well, suspect dependent edema. According to patient, she has gained more than 40 lb in weight over the last few months. [facility] Medical History CAD (coronary artery disease) IBS (irritable bowel syndrome) Exocrine pancreatic insufficiency Lichen sclerosus Cough Bilateral knee pain Rectal prolapse Pre-op examination Small intestinal bacterial overgrowth Appendicitis Kidney stone Carpal tunnel syndrome Right shoulder injury Vertigo Chronic headaches Diverticulosis Fibromyalgia Depression Surgical History S/P triple vessel bypass History of endometrial ablation History of esophagogastroduodenoscopy (EGD) Hx of colonoscopy Hx of carpal tunnel repair (~07/2019) Hx of rotator cuff surgery Hx of shoulder surgery Hx of appendectomy Hx of cholecystectomy Family History Father Myocardial infarction, Onset Age: 46 Mother Congestive heart failure Stomach problems Stomach ulcer Anxiety and depression Myocardial infarction, Onset Age: 50 Mental health disorder Sister Heart problem Myocardial infarction, Onset Age: 59 Sister Afib Brother Throat cancer Lung cancer Social History Household Members: Family Housing: Apartment Alcohol intake: never Patient Tobacco Use Status: Former Tobacco user Quit Date: 2022 Tobacco use type: Cigarette Years Smoked: 30 +/- e-Cigarette/Vaping Use: Never Used Second Hand Smoke Exposure: No service: No Current occupational status: disabled 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 Cognitive needs: No Hearing needs: No Vision needs: Yes (Glasses) Female Reproductive History Menstrual Age of Menarche: 15 Review of Systems Const All systems reviewed & are unremarkable except as noted in HPI and below Reports as per HPI and Reports no additional complaints Eyes Reports as per HPI and Denies no additional complaints ENT Denies no additional complaints and Reports as per HPI Card Reports as per HPI, Reports no additional complaints, Denies acrocyanosis, Reports chest pain, Reports leg edema, Denies lightheadedness, Denies palpitations and Denies dyspnea Resp Reports as per HPI, Denies no additional complaints and Denies dyspnea GI Reports as per HPI and Denies no additional complaints Reports as per HPI Musc Reports no additional complaints and Reports as per HPI Skin/Breast Reports system reviewed and no additional complaints, except as documented Neuro Reports no additional complaints and Reports as per HPI Psych Reports no additional complaints and Reports as per HPI Endo Reports no additional complaints, Reports as per HPI and Denies palpitations Elpidio/Lymph Reports no additional complaints and Reports as per HPI Aller/Immun Reports no additional complaints and Reports as per HPI Physical Exam Vital Signs: Last Vital Signs Pulse 97 04/07/23 10:51 BP 110/72 04/07/23 10:51 Const General: comfortable and no acute distress Orientation/consciousness: patient oriented x3 HEENT Other: Unremarkable Head: Yes normal to inspection Neck Neck: Yes normal visual inspection Chest Chest palpation & inspection: normal inspection of the chest Resp Auscultation: clear to auscultation bilaterally Cardio Palpation: normal PMI Heart sounds: S1 normal heart sound present, S2 normal heart sound present, no gallops, no murmurs and no rubs GI Palpation (GI): Soft to palpation Back/Spine/Pelvis Other: unremarkable Skin General skin exam: no rashes or lesions noted Neuro General: patient oriented x3 Extrem Other: Trace edema General: Yes normal to inspection Psych Mental Status: mental status grossly normal Assessment & Plan Assessment & Plan (1) CAD (coronary artery disease): Code(s): I25.10 - Atherosclerotic heart disease of [place] coronary artery without angina pectoris Qualifiers: Associated angina: without angina Coronary Disease-Associated Artery/Lesion type: bypass graft [place] vs. transplanted heart: [place] heart Qualified Code(s): I25.810 - Atherosclerosis of coronary artery bypass graft(s) without angina pectoris (2) S/P CABG (coronary artery bypass graft): Code(s): Z95.1 - Presence of aortocoronary bypass graft (3) Disruption or dehiscence of closure of sternum or sternotomy: Code(s): T81.32XA - Disruption of internal operation (surgical) wound, not elsewhere classified, initial encounter Qualifiers: Encounter type: initial encounter Qualified Code(s): T81.32XA - Disruption of internal operation (surgical) wound, not elsewhere classified, initial encounter Plan With regard to medications, continue long-term aspirin. Plavix may be continued for about an year from time of bypass. We discussed about this today. She has stopped beta-blockers due to low blood pressure concerns. That is acceptable. With regard to statins, she states she cannot take them due to muscle aches. Hence start Repatha or Praluent as approved by her insurance. Once she takes this for a few weeks/months, we can recheck lipids. With regard to the question of sternal nonunion, sent message to Dr. Patrick from cardiac surgery. Once that is sorted out, may start cardiac rehabilitation. She states she is in too much pain right now to do anything. All questions were answered to her satisfaction. Coding Level of Care Code Est Pt Level 4 (70326) Diagnoses Coronary artery disease involving coronary bypass graft of [place] heart without angina pectoris I25.810 Associated angina: without angina Coronary Disease-Associated Artery/Lesion type: bypass graft [place] vs. transplanted heart: [place] heart S/P CABG (coronary artery bypass graft) Z95.1 Disruption or dehiscence of closure of sternum or sternotomy, initial encounter T81.32XA Encounter type: initial encounter
[2023-04-07 10:51] VITALS: BP 110/72; PULSE 97
== END 2023-04-07 11:14 | disposition home or self-care (01) ==
PROVIDERS: PCP Physician Assistant; Visit Provider Internal Medicine
DX: I25.810 Atherosclerosis of coronary artery bypass graft(s) without angina pectoris (principal); Z95.1 Presence of aortocoronary bypass graft; T81.32XA Disruption of internal operation (surgical) wound, not elsewhere classified, initial encounter
CPT/HCPCS: 99214

== ENCOUNTER → 2023-04-07 10:45 | Outpatient (BNVA) | payer MEDICARE, MEDICAID, SELFPAY | PROVIDERS: PCP Physician Assistant; Visit Provider Internal Medicine | DX: I25.810 Atherosclerosis of coronary artery bypass graft(s) without angina pectoris (principal); T81.32XA Disruption of internal operation (surgical) wound, not elsewhere classified, initial encounter; Z95.1 Presence of aortocoronary bypass graft | CPT/HCPCS: 99212 ==

== ENCOUNTER 2023-06-16 09:48 | Emergency (ER) | payer MEDICARE, MEDICAID, SELFPAY ==
--- NOTE | ~2023-06-16 | US_ITS ---
EXAMINATION: US VENOUS ULTRASOUND WITH DOPPLER LOWER EXTREMITY, RIGHT CLINICAL INFORMATION: Leg pain COMPARISON: Previous exam November 2020 TECHNIQUE: Ultrasound of the deep veins is performed from the hip to the calf with compression sonography and color and pulse Doppler assessment. Spectral analysis with color-flow imaging is performed. FINDINGS: There is normal venous compression and respiratory variation and augmented flow. The visualized common femoral vein, superficial femoral vein, profunda femoral vein, popliteal vein, and the trifurcation region shows no evidence of deep venous thrombosis. There is no significant popliteal fossa cyst. US/US venous duplex LE RT IMPRESSION: No DVT demonstrated in the right lower extremity.
--- NOTE | ~2023-06-16 | XR_ITS ---
EXAMINATION: XR CHEST CLINICAL INFORMATION: Chest pain. COMPARISON: 02/14/2023 TECHNIQUE: Frontal view of the chest was obtained. FINDINGS: The lungs are well expanded. No focal consolidation. No pleural effusion. Cardiac silhouette is unchanged. Prior median sternotomy. XR/XR chest 1V IMPRESSION: No acute abnormality.
[2023-06-16 10:05] VITALS: BP 111/81; PULSE 88; RESP 16; TEMP 36.8; O2SAT 98; BMI 39.7
--- NOTE | 2023-06-16 10:09 | ECG_ITS ---
Test Reason : CHEST PAIN Blood Pressure : / mmHG Vent. Rate : 088 BPM Atrial Rate : 088 BPM P-R Int : 152 ms QRS Dur : 078 ms QT Int : 356 ms P-R-T Axes : 074 039 067 degrees QTc Int : 430 ms Normal sinus rhythm Nonspecific ST and T wave abnormality Abnormal ECG When compared with ECG of 14-FEB-2023 11:02, No significant change was found Referred By: Hope Estevez Electronically Signed By:JUNG OSMAN
[2023-06-16 10:29] LABS: MANUAL DIFF FLAG NO
[2023-06-16 10:30] LABS: Basophils Absolute Auto 0.1 X10*3/uL (0.0-0.2); Basophils Percent Auto 0.4 % (0-2); Eosinophils Absolute Auto 0.4 X10*3/uL (0.0-0.4); Eosinophils Percent Auto 3.5 % (0-4); Hematocrit 41.9 % (37.0-47.0); Hemoglobin 12.9 g/dl (12.0-16.0); Imm Gran Abs Auto 0.05 X10*3/uL (0.00-0.03); Imm Gran Pct Auto 0.4 % (0.0-0.4); Lymphocytes Absolute Auto 2.4 X10*3/uL (1.2-4.9); Mean Corpuscular HGB Conc 30.8 g/dl (31.0-35.0); Mean Corpuscular Hemoglobin 24.7 pg (27.0-33.0); Mean Corpuscular Volume 80.3 fL (80.0-98.0); Mean Platelet Volume 9.6 fL (9.4-12.3); Monocytes Absolute Auto 1.4 X10*3/uL (0.1-1.2); Monocytes Percent Auto 11.3 % (2-11); Neutrophils Absolute Auto 7.8 x10*3/uL (2.0-8.3); Neutrophils Percent Auto 64.4 % (45-73); Platelet Count 391 X10*3/uL (160-400); Red Blood Count 5.22 X10*6/uL (4.20-5.50); Red Cell Distribution Width 14.9 % (11.0-16.0); White Blood Count 12.1 X10*3/uL (4.8-10.8)
[2023-06-16 10:49] LABS: COVID-19 Test Negative (Negative); IDNOW Serial# 152EDE1D
[2023-06-16 10:53] LABS: Alanine Aminotransferase 17 U/L (0-31); Albumin Level 4.1 g/dL (3.5-5.0); Alkaline Phosphatase 97 U/L (39-117); Anion Gap 13 (12-20); Aspartate Amino Transferase 14 U/L (5-31); Bilirubin Direct 0.1 mg/dL (0.0-0.5); Bilirubin Total 0.3 mg/dL (0.0-1.0); Blood Urea Nitrogen 19 mg/dL (9-16); Calcium 9.7 mg/dL (8.4-10.2); Carbon Dioxide 28 mmol/L (22-29); Chloride 105 mmol/L (96-108); Creatinine Clr Calc Pharmacy 74.2; Estimated Glomerular Filt Rate > 60; Glucose Random 57 mg/dL (60-115); Potassium 4.5 mmol/L (3.3-5.1); Sodium 141 mmol/L (135-145); Total Protein 7.7 g/dL (6.5-8.0); Troponin-I High Sensitivity < 2.7 ng/L (<3.5-17.0)
[2023-06-16 11:42] LABS: Glucose, Whole Blood 106 mg/dL (60-115)
--- NOTE | 2023-06-16 17:37 | PC.NURSE ---
Pt brought to [facility] 15 for treatment assumed care of pt at this time.
[2023-06-16 17:50] VITALS: BP 113/72; PULSE 81; RESP 18; TEMP 36.8; O2SAT 99
[2023-06-16 18:00] VITALS: BP 112/73; PULSE 81; RESP 16; O2SAT 98
--- NOTE | 2023-06-16 18:03 | ED.CHESTPAIN ---
HPI - Chest Pain General Chief Complaint: Chest Pain Stated Complaint: Pressure in head 2 weeks, tightness in abd Time Seen by Provider: 06/16/23 17:23 History of Present Illness HPI narrative: Patient is 58 years old female with a history of coronary artery disease. Patient is status post bypass surgery in September. Complicated by having nonunion. Presented today with having chest pressure that has been ongoing for the last 3 days. It radiates to the left breast area. Patient denies any rash. There has no fever no chills. No history of diabetes, hypertension, high cholesterol. No history of smoking. Patient is from home. Positive head pressure. Positive generalized malaise. Positive nasal discharge denies any coughing congestion upper respiratory symptoms. Patient not vaccinated for COVID or flu. She is from home. No travel history but now is also complaining of pain to the right leg. She claims the swelling and pain to the leg is chronic. Patient denies any diaphoresis. Claims that the chest pain is very constant ongoing for the last 2 days. Not change with position. Not change with exertion Related Data Home Medications Medication Instructions Recorded Confirmed clopidogrel 75 mg tablet 75 mg PO DAILY 11/03/22 04/07/23 Previous Rx's Medication Instructions Recorded aspirin 81 mg tablet,delayed 81 mg PO DAILY 90 days #90 tabs 11/03/22 release (Adult Aspirin Regimen) albuterol sulfate 2.5 mg/3 mL 2.5 mg (3 mL) inhalation Q6H PRN 03/22/23 (0.083 %) solution for nebulization shortness of breath or wheezing 15 days #180 mL alirocumab 75 mg/mL subcutaneous 75 mg subcut Q14D #2 mL 04/10/23 pen injector (Praluent Pen) levalbuterol tartrate 45 2 inh inhalation Q6H 30 days #15 06/04/23 mcg/actuation aerosol inhaler grams cholecalciferol (vitamin D3) 50 50 mcg PO DAILY #90 caps 06/05/23 mcg (2,000 unit) capsule loratadine 10 mg tablet 10 mg PO DAILY #90 tabs 06/05/23 Allergies Allergy/AdvReac Type Severity Reaction Status Date / Time calcium [Calcium] Allergy Severe HIVES Verified 04/07/23 10:49 doxycycline [Doxycycline] Allergy Severe FACIAL Verified 04/07/23 10:49 SWELLING,almost killed pt,inhouse for weakness,,incontinence?seizures Penicillins Allergy Severe Facial Verified 04/07/23 10:49 Swelling lactose Allergy Mild Unknown Verified 04/07/23 10:49 amoxicillin Allergy Unknown Throat Verified 04/07/23 10:49 swelling azithromycin [AZITHROMYCIN] Allergy Unknown Bloody Verified 04/07/23 10:49 Diarrhea cefuroxime [CEFUROXIME] Allergy Unknown Angioedema Verified 04/07/23 10:49 ciprofloxacin [From Cipro] Allergy Unknown Unknown Verified 04/07/23 10:49 clindamycin [CLINDAMYCIN] Allergy Unknown Anaphylaxis Verified 04/07/23 10:49 erythromycin base Allergy Unknown Diarrhea Verified 04/07/23 10:49 iron Allergy Unknown Unknown Verified 04/07/23 10:49 levofloxacin [From Levaquin] Allergy Unknown Unknown Verified 04/07/23 10:49 peanut [Peanut] Allergy Unknown Itching Verified 04/07/23 10:49 penicillin V Allergy Unknown ears and Verified 04/07/23 10:49 face swell,throat swell Sulfa (Sulfonamide Allergy Unknown ANAPHYLAXIS, Verified 04/07/23 10:49 Antibiotics) swelling [SULFA(SULFONAMIDE body,welts ANTIBIOTICS)] Etulnsa-UCE-FrH Reductase AdvReac Severe Muscle Pain Verified 04/10/23 16:51 Inhibitor cefazolin AdvReac Mild Anaphylaxis Verified 04/07/23 10:49 RAISIN Allergy Unknown Itching Uncoded 04/07/23 10:49 TURNIPS Allergy Unknown Unknown Uncoded 04/07/23 10:49 cheetos Allergy itchy, rash Uncoded 04/07/23 10:49 cranberry juice Allergy mouth Uncoded 04/07/23 10:49 itchy, bumps grape juice Allergy mouth Uncoded 04/07/23 10:49 itchy, bumps Review of Systems Review of Systems: Positive chest pain Yes all other systems are reviewed and are negative PMFSH Past Medical History Source: unable to obtain Onset Date is defined in the Problem List Problems that require an onset date and time if occurred within 24 hrs of arrival to the ED Aortic Dissection and Rupture; Neurologic impairment; Cardiopulmonary Arrest; Endotracheal Intubation; Insertion or Replacement of Mechanical Circulatory Assist Device Medical History CAD (coronary artery disease) IBS (irritable bowel syndrome) Exocrine pancreatic insufficiency Lichen sclerosus Cough Bilateral knee pain Rectal prolapse Pre-op examination Small intestinal bacterial overgrowth Appendicitis Kidney stone Carpal tunnel syndrome Right shoulder injury Vertigo Chronic headaches Diverticulosis Fibromyalgia Depression Surgical History S/P triple vessel bypass History of endometrial ablation History of esophagogastroduodenoscopy (EGD) Hx of colonoscopy Hx of carpal tunnel repair (~07/2019) Hx of rotator cuff surgery Hx of shoulder surgery Hx of appendectomy Hx of cholecystectomy Family History Family History Father Myocardial infarction, Onset Age: 46 Mother Congestive heart failure Stomach problems Stomach ulcer Anxiety and depression Myocardial infarction, Onset Age: 50 Mental health disorder Sister Heart problem Myocardial infarction, Onset Age: 59 Sister Afib Brother Throat cancer Lung cancer Social History Social History Household Members: Family Housing: Apartment Alcohol intake: never Patient Tobacco Use Status: Former Tobacco user Quit Date: 2022 Tobacco use type: Cigarette Years Smoked: 30 +/- Smoked in Last 30 Days: No e-Cigarette/Vaping Use: Never Used Second Hand Smoke Exposure: No Use of substances other than those prescribed or required for medical reasons: No Patient : No service: No Current occupational status: disabled 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 Oriented X3. No acute distress. Eyes: Pupils equal, round and reactive to light. ENT: Pharynx normal. Neck: Normal inspection. Neck supple. No lymph nodes noted. No crepitus CVS: Normal heart rate and rhythm. Pulses normal. Normal S1 and S2 Respiratory: No respiratory distress. Breath sounds normal. No Wheezing. No rales Abdomen: Soft and nontender. No rigidity. No distention. good BS x4 Skin: Skin warm and dry. Normal skin color. Normal skin turgor. Extremities: No lower extremity edema. Neurovascular intact to all extremities. No Lacerations. No Rash Neuro: Oriented X 3. No motor deficit. No sensory deficit. Moving all extermities. No slurred speech Medications Administered Discontinued Medications Generic Name Dose Route Start Last Admin Trade Name Jacek PRN Reason Stop Dose Admin Diphenhydramine HCl 25 mg 06/16/23 18:00 06/16/23 18:46 Diphenhydramine Hcl 50 Mg/Ml Vial IVPUSH 06/16/23 18:01 25 mg ONCE ONE Administration Ketorolac Tromethamine 15 mg 06/16/23 18:00 06/16/23 18:46 Ketorolac Tromethamine 15 Mg/Ml Vial IVPUSH 06/16/23 18:01 15 mg ONCE ONE Administration Metoclopramide HCl 10 mg 06/16/23 18:00 06/16/23 18:46 Metoclopramide Hcl 10 Mg/2 Ml Vial IVPUSH 06/16/23 18:01 10 mg ONCE ONE Administration Medical Decision Making Medical Decision Making [facility] Narrative: Although patient has a history of proven coronary disease status post bypass. Her chest pain is atypical as been very constant for the last 4-5 days. Two sets of troponin were negative. EKG normal. There has no evidence for ACS. Given pain medication with good relief of symptoms. Patient's sugar was slightly low. Otherwise electrolytes unremarkable. COVID test was negative. My interpretation of patient's chest x-ray is grossly negative for acute evidence of pneumonia. No evidence for pneumothorax no evidence for rib fracture I reviewed radiology's reading of the ultrasound right lower extremity there is no evidence for DVT. Will discharge patient home Differential Diagnosis Differential Diagnoses: The differential diagnosis associated with the presentation includes ACS, DVT, pneumonia, rib fracture, pneumothorax Lab Data [facility] Lab Attestation statement: I reviewed the patient's lab results. 06/16/23 10:24 06/16/23 10:24 Labs: Lab Results 06/16/23 06/16/23 06/16/23 Range/Units 10:24 11:38 18:32 WBC 12.1 H (4.8-10.8) X10*3/uL RBC 5.22 (4.20-5.50) X10*6/uL Hgb 12.9 (12.0-16.0) g/dl Hct 41.9 (37.0-47.0) % MCV 80.3 (80.0-98.0) fL MCH 24.7 L (27.0-33.0) pg MCHC 30.8 L (31.0-35.0) g/dl RDW 14.9 (11.0-16.0) % Plt Count 391 (160-400) X10*3/uL MPV 9.6 (9.4-12.3) fL Immature Gran % (Auto) 0.4 (0.0-0.4) % Neut % (Auto) 64.4 (45-73) % Lymph % (Auto) 20.0 (20-40) % Dickenson % (Auto) 11.3 H (2-11) % Eos % (Auto) 3.5 (0-4) % Baso % (Auto) 0.4 (0-2) % Lymph # (Auto) 2.4 (1.2-4.9) X10*3/uL [place]enson # (Auto) 1.4 H (0.1-1.2) X10*3/uL Eos # (Auto) 0.4 (0.0-0.4) X10*3/uL Baso # (Auto) 0.1 (0.0-0.2) X10*3/uL Abs Immat Gran (auto) 0.05 H (0.00-0.03) X10*3/uL Absolute Neuts (auto) 7.8 (2.0-8.3) x10*3/uL Absolute Nucleated RBC 0.000 (0.0-0.012) X10*3/uL Nucleated RBC % (auto) 0.0 (0.0-0.2) /100WBC Sodium 141 (135-145) mmol/L Potassium 4.5 (3.3-5.1) mmol/L Chloride 105 (96-108) mmol/L Carbon Dioxide 28 (22-29) mmol/L Anion Gap 13 (12-20) BUN 19 H (9-16) mg/dL Creatinine 0.86 (0.5-1.4) mg/dL Estim Creat Clear Calc 74.2 Estimated GFR > 60 POC Glucose 106 (60-115) mg/dL Random Glucose 57 L* (60-115) mg/dL Calcium 9.7 (8.4-10.2) mg/dL Total Bilirubin 0.3 (0.0-1.0) mg/dL Direct Bilirubin 0.1 (0.0-0.5) mg/dL AST 14 (5-31) U/L ALT 17 (0-31) U/L Alkaline Phosphatase 97 (39-117) U/L Troponin I High Sens < 2.7 D < 2.7 (<3.5-17.0) ng/L Total Protein 7.7 (6.5-8.0) g/dL Albumin 4.1 (3.5-5.0) g/dL COVID-19 (DANA) Negative (Negative) COVID-19 Clin Com See Note Independent Interpretation I performed an independent interpretation of an: EKG (Sinus heart rate is 90 MA QRS QTC within normal limits is no acute ST segment elevation) and Plain X-Ray (Chest x-ray is grossly negative) Radiology Impression Discussion of test interpretation with radiology: I have reviewed the radiologist's reading. Radiologist Impression: I reviewed radiology's reading of the chest x-ray and also the ultrasound of the lower extremity External Record Review External record reviewed: Inpatient record Chronic Conditions Patient?s care impacted by: Hypertension Discharge Plan Discharge Clinical Impression: Chest pain Patient Disposition: Home, Self-Care Instructions: Chest Pain (ED) Prescriptions: No Action albuterol sulfate 2.5 mg /3 mL (0.083 %) solution for nebulization 2.5 mg inhalation Q6H PRN (Reason: shortness of breath or wheezing) 15 Days Qty: 180 3RF Praluent Pen 75 mg/mL pen injector 75 mg subcut Q14D Qty: 2 6RF levalbuterol tartrate 45 mcg/actuation HFA aerosol inhaler 2 inh inhalation Q6H 30 Days Qty: 15 6RF cholecalciferol (vitamin D3) 50 mcg (2,000 unit) capsule 50 mcg PO DAILY Qty: 90 3RF loratadine 10 mg tablet 10 mg PO DAILY Qty: 90 1RF clopidogrel 75 mg tablet 75 mg PO DAILY aspirin [Adult Aspirin Regimen] 81 mg tablet,delayed release (DR/EC) 81 mg PO DAILY 90 Days Qty: 90 3RF Referrals: Angelo Tejada PA-C [Primary Care Provider] - Peter Quinn MD [Physician] - 06/19/23
[2023-06-16] MEDS: Metoclopramide HCl 10 MG/2 ML VIAL IVPUSH (18:46)
[2023-06-16] MEDS: Ketorolac Tromethamine 15 MG/ML VIAL IVPUSH (18:46)
[2023-06-16] MEDS: diphenhydrAMINE HCL 50 MG/ML VIAL 25 MG IVPUSH (18:46)
--- NOTE | 2023-06-16 18:50 | PC.NURSE ---
IV access obtained, serial troponin drawn and sent to lab for processing. Pt medicated per MAR for reports of continued under left breast pain radiating into mid sternum, squeezing in nature. Also endorsing nausea no vomiting, intermittent diarrhea and constipation. VSS, NSR on monitor. Awaiting improvement in symptoms and results.
[2023-06-16 19:00] LABS: Troponin-I High Sensitivity < 2.7 ng/L (<3.5-17.0)
--- NOTE | 2023-06-16 19:00 | PC.NURSE ---
Report given to Emilie CARDOSO, pt exits my care at this time.
[2023-06-16 19:39] LABS: Glucose, Whole Blood 99 mg/dL (60-115)
[2023-06-16 19:55] VITALS: BP 105/57; PULSE 69; RESP 16; O2SAT 98
== END 2023-06-16 20:12 | disposition home or self-care (01) ==
PROVIDERS: Emergency Medicine; Physician Assistant Medical; Emergency Provider Emergency Medicine Emergency Medical Services; PCP Physician Assistant
DX: R07.9 Chest pain, unspecified (principal); M79.604 Pain in right leg; Z11.52 Encounter for screening for COVID-19; Z95.1 Presence of aortocoronary bypass graft; Z79.82 Long term (current) use of aspirin; Z79.899 Other long term (current) drug therapy
CPT/HCPCS: 36415; 71045; 80048; 80076; 82947; 84484; 85025; 87635; 93005; 93971; 96374; 96375; 99284; 99285; J1200; J1885; J2765

== ENCOUNTER → 2023-06-16 10:09 | Outpatient (BNV) | payer MEDICARE, MEDICAID, SELFPAY | PROVIDERS: PCP Physician Assistant; Visit Provider Internal Medicine | DX: R94.31 Abnormal electrocardiogram [ECG] [EKG] (principal) | CPT/HCPCS: 93010 ==

== ENCOUNTER 2023-06-22 14:41 | Outpatient (AMB) | payer MEDICARE, MEDICAID, SELFPAY ==
--- NOTE | 2023-06-22 14:43 | A.OFFPC_ITS ---
Vital Signs 06/22/23 14:45 Height 5 ft 1 in BMI Reason not done Patient refused/unable BP 122/64 Blood Pressure Location Lt brachial Position Sitting Pulse 100 Pulse Source Pulse Oximeter Pulse Oximetry (%) 98 Oxygen Delivery Method Room Air Intake Visit Reasons: ED follow-up for heart problems Intake Note: Pt is here for ED follow-up for heart problems and persistent symptoms, in cluding chest pain, pain in the back of the head and ears, stomach swelling, and a sensation of pressure like a snake wrapped around the neck. 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 Accompanied by: Self / Same As Patient Allergies calcium [Calcium] Allergy (Severe, Verified 06/22/23 15:09) HIVES doxycycline [Doxycycline] Allergy (Severe, Verified 06/22/23 15:09) FACIAL SWELLING,almost killed pt,inhouse for weakness,,incontinence?seizures Penicillins Allergy (Severe, Verified 06/22/23 15:09) Facial Swelling lactose Allergy (Mild, Verified 06/22/23 15:09) Unknown amoxicillin Allergy (Unknown, Verified 06/22/23 15:09) Throat swelling azithromycin [AZITHROMYCIN] Allergy (Unknown, Verified 06/22/23 15:09) Bloody Diarrhea cefuroxime [CEFUROXIME] Allergy (Unknown, Verified 06/22/23 15:09) Angioedema ciprofloxacin [From Cipro] Allergy (Unknown, Verified 06/22/23 15:09) Unknown clindamycin [CLINDAMYCIN] Allergy (Unknown, Verified 06/22/23 15:09) Anaphylaxis erythromycin base Allergy (Unknown, Verified 06/22/23 15:09) Diarrhea iron Allergy (Unknown, Verified 06/22/23 15:09) Unknown levofloxacin [From Levaquin] Allergy (Unknown, Verified 06/22/23 15:09) Unknown peanut [Peanut] Allergy (Unknown, Verified 06/22/23 15:09) Itching penicillin V Allergy (Unknown, Verified 06/22/23 15:09) ears and face swell,throat swell Sulfa (Sulfonamide Antibiotics) [SULFA(SULFONAMIDE ANTIBIOTICS)] Allergy (Unknown, Verified 06/22/23 15:09) ANAPHYLAXIS, swelling body,welts Nlqxjaz-VWZ-RsQ Reductase Inhibitor Adverse Reaction (Severe, Verified 06/22/23 15:09) Muscle Pain cefazolin Adverse Reaction (Mild, Verified 06/22/23 15:09) Anaphylaxis RAISIN Allergy (Unknown, Uncoded 06/22/23 14:44) Itching TURNIPS Allergy (Unknown, Uncoded 06/22/23 14:44) Unknown cheetos Allergy (Uncoded 06/22/23 14:44) itchy, rash cranberry juice Allergy (Uncoded 06/22/23 14:44) mouth itchy, bumps grape juice Allergy (Uncoded 06/22/23 14:44) mouth itchy, bumps Medication List - Last Reconciled 06/22/23 by Angelo Tejada PA-C albuterol sulfate 2.5 mg (3 mL) inhalation Q6H PRN 15 days alirocumab (Praluent Pen) 75 mg subcut Q14D aspirin (Adult Aspirin Regimen) 81 mg PO DAILY 90 days cholecalciferol (vitamin D3) 50 mcg PO DAILY clopidogrel 75 mg PO DAILY levalbuterol tartrate 45 mcg/actuation 2 inhalations inhalation Q6H 30 days loratadine 10 mg PO DAILY Tobacco use date assessed: 06/22/23 Dental Screening Dental Screen Date: 06/22/23 Did you have a dental visit in the last 12 months?: Yes Did you have a dental problem in the last 6 months where you did not have access to dental care?: No Was dental information given to patient?: Patient has dentist HPI ED follow-up for heart problems HPI Details Patient is a 58-year-old female here today for an ER follow-up visit. Patient has a past medical history significant for coronary artery disease status post coronary artery bypass, former, asthma. Recently seen at the ER for chest pain, EKG without any changes, troponins negative, chest x-ray without any infiltrate or pneumothorax. .. Coronary artery disease: She continues on dual antiplatelet therapy, has been started on Praluent injections by her international coordinator. She feels she is having side effects from Plavix and wonders about discontinuing. .. Chronic sinusitis: She continues with allergy medication and nasal spray. Continues with complaints nasal pressure and sinus congestion. She feels over the last few weeks her head pressure and pain has gotten worse. She explains that the pressure feels very constrictive around her neck and head. She also notes that there is a clicking sound in her right ear. Laboratory Tests 05/13/22 06/16/23 06/16/23 10:18 10:24 18:32 Creatinine 0.84 Random Glucose 57 L* Troponin I High Se ns < 2.7 D < 2.7 Cholesterol 228 LDL Cholesterol, C alc 159 TSH 0.63 PFSH Medical History CAD (coronary artery disease) IBS (irritable bowel syndrome) Exocrine pancreatic insufficiency Lichen sclerosus Cough Bilateral knee pain Rectal prolapse Pre-op examination Small intestinal bacterial overgrowth Appendicitis Kidney stone Carpal tunnel syndrome Right shoulder injury Vertigo Chronic headaches Diverticulosis Fibromyalgia Depression Surgical History S/P triple vessel bypass History of endometrial ablation History of esophagogastroduodenoscopy (EGD) Hx of colonoscopy Hx of carpal tunnel repair (~07/2019) Hx of rotator cuff surgery Hx of shoulder surgery Hx of appendectomy Hx of cholecystectomy Family History Father Myocardial infarction, Onset Age: 46 Mother Congestive heart failure Stomach problems Stomach ulcer Anxiety and depression Myocardial infarction, Onset Age: 50 Mental health disorder Sister Heart problem Myocardial infarction, Onset Age: 59 Sister Afib Brother Throat cancer Lung cancer Social History Household Members: Family Housing: Apartment Alcohol intake: never Patient Tobacco Use Status: Former Tobacco user Quit Date: 2022 Tobacco use type: Cigarette Years Smoked: 30 +/- e-Cigarette/Vaping Use: Never Used Second Hand Smoke Exposure: No Advance Directives Date on File: 02/25/22 service: No Current occupational status: disabled 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 1. Little interest or pleasure in doing things: nearly every day 2. Feeling down, depressed, or hopeless: nearly every day 3. Trouble falling or staying asleep, or sleeping too much: nearly every day 4. Feeling tired or having little energy: nearly every day 5. Poor appetite or overeating: nearly every day 6. Feeling bad about yourself - or that you are a failure or have let yourself or your family down: nearly every day 7. Trouble concentrating on things, such as reading the newspaper or watching television: nearly every day 8. Moving or speaking so slowly that other people could have noticed. Or the opposite - being so fidgety or restless that you have been moving around a lot more than usual: not at all 9. Thoughts that you would be better off or of hurting yourself in some way: not at all Total score: 21 Depression Screening Interpretation: Positive Depression Screening Follow-up: Existing condition and Declines treatment Depression Screening Done: Yes 40127 - PHQ-9 Billing: Yes Source: Developed by Drs. Jeronimo Najera, Lyly Triplett, Kike Nuñez and colleagues, with an educational melo from [employer]. Thrive Questionnaire Date Thrive assessed: 06/22/23 I am a: Patient What is your living situation today?: I have a steady place to live Within the past 12 months, did the food you bought not last and you didn't have the money to get more?: Never true Within the past 12 months, did you worry whether your food would run out before you got money to buy more?: Never true Do you have trouble paying for medicines?: No Do you have trouble getting transportation to medical appointments?: No Do you have trouble paying your heating and electricity bill?: No Do you have trouble taking care of your child, family member or friend?: No Do you have trouble with day-to-day activities such as bathing, preparing meals, shopping, managing finances, etc.?: No Are you currently unemployed and looking for a job?: No Are you interested in more education?: No Please select the resources that you would like help with: None Currently or been in a relationship where the following occur: no concerns reported THRIVE Score: 0 AUDIT C Alcohol Use Questionnaire (AUDIT-C) 1. How often do you have a drink containing alcohol?: Never Total Score: 0 JOHANNY-7 AMB Questionnaire JOHANNY-7 Date JOHANNY - 7 assessed: 06/22/23 Feeling nervous, anxious, or on edge: 3 = Nearly every day Not being able to stop or control worryin = Nearly every day Worrying too much about different things: 3 = Nearly every day Trouble relaxin = Nearly every day Being so restless that it is hard to sit still: 0 = Not at all Becoming easily annoyed or irritable: 3 = Nearly every day Feeling afraid as if something awful might happen: 3 = Nearly every day Total JOHANNY-7 score (0-4 normal; 5-9 mild; 10-14 moderate; 15-21 severe): 18 Source: Developed by Drs. Jeronimo Najera, Lyly Triplett, Kike Nuñez and colleagues, with an educational melo from [employer]. JOHANNY-7 Assessment Billing JOHANNY-7 Assessment Tool: JOHANNY-7 Assessment 51646 Physical exam (Primary Care) Vital Signs: Last Vital Signs Pulse 100 06/22/23 14:45 BP 122/64 06/22/23 14:45 Pulse Ox 98 06/22/23 14:45 Oxygen Delivery Method Room Air 06/22/23 14:45 Tobacco/Smoking Status: Tobacco use Status Tobacco use date assessed 06/22/23 06/22/23 14:51 Patient Tobacco Use Status Former Tobacco user 06/22/23 14:51 Tobacco use type Cigarette 06/22/23 14:51 e-Cigarette/Vaping Use Never Used 06/22/23 14:51 PHQ-9: PHQ-9 Score PHQ-9: Total score 21 06/22/23 15:11 Depression Screening Interpretation: Positive Depression Screening Follow-up: Existing condition and Declines treatment Thrive Assessment: Date of Thrive Assessment Date Thrive assessed 06/22/23 06/22/23 14:51 Currently or been in a relationship where the following occur: no concerns reported Assessment and Plan Assessment & Plan (1) CAD (coronary artery disease): Code(s): I25.10 - Atherosclerotic heart disease of [place] coronary artery without angina pectoris Qualifiers: Associated angina: without angina Coronary Disease-Associated Artery/Lesion type: bypass graft [place] vs. transplanted heart: [place] heart Qualified Code(s): I25.810 - Atherosclerosis of coronary artery bypass graft(s) without angina pectoris Plan: As per HPI patient is followed by a international coordinator. Continues on dual anti- platelet therapy though feels she has having side effects from Plavix. She wonders if she can continue with mono antiplatelet therapy. Will try to reach out to her international coordinator (2) GERD (gastroesophageal reflux disease): Code(s): K21.9 - Gastro-esophageal reflux disease without esophagitis Qualifiers: Esophagitis presence: esophagitis presence not specified Qualified Code(s): K21.9 - Gastro-esophageal reflux disease without esophagitis Plan: Has been suffering with GERD like symptoms worse since starting dual anti- platelet therapy. Advised on trying [id number]-[id number] Maalox. (3) Pressure in head: Code(s): R51.9 - Headache, unspecified (4) MDD (major depressive disorder), recurrent episode, moderate: Code(s): F33.1 - Major depressive disorder, recurrent, moderate Plan: Patient's PHQ-9 score positive for depression which has been existing condition for her. She has not interested in starting new medication for her mental health or seeing a mental health therapist. (5) Chronic sinusitis: Code(s): J32.9 - Chronic sinusitis, unspecified Qualifiers: Sinusitis location: frontal Qualified Code(s): J32.1 - Chronic frontal sinusitis Plan: Patient continues to suffer with sinusitis symptoms. She does use allergy medication nasal spray albuterol inhaler. She reports that Rhinocort was helpf ul in the past and will try to prescribe her this nasal spray. Due to reports a pressure in the head and persistent headaches will try for CT of sinus. Orders: Orders CT sinus wo IV con 06/22/23 H93.19 - Tinnitus, unspecified ear, J32.9 - Chronic sinusitis, unspecified, R51.9 - Headache, unspecified Medications: New budesonide 32 mcg/actuation administer into each nostril 2 sprays intranasal BID 30 days 8.43 mL 3RF J01.10 - Acute frontal sinusitis, unspecified Refilled albuterol sulfate 2.5 mg (3 mL) inhalation Q6H 15 days PRN 180 mL 3RF shortness of breath or wheezing J45.909 - Unspecified asthma, uncomplicated Coding Level of Care Code Est Pt Level 4 (03783) Diagnoses Coronary artery disease involving coronary bypass graft of [place] heart without angina pectoris I25.810 Associated angina: without angina Coronary Disease-Associated Artery/Lesion type: bypass graft [place] vs. transplanted heart: [place] heart Gastroesophageal reflux disease, unspecified whether esophagitis present K21.9 Esophagitis presence: esophagitis presence not specified Pressure in head R51.9 MDD (major depressive disorder), recurrent episode, moderate F33.1 Chronic frontal sinusitis J32.1 Sinusitis location: frontal Additional Codes JOHANNY-7 Assessment Billing - JOHANNY-7 Assessment Tool: JOHANNY-7 Assessment [id number] ([id number])
[2023-06-22 14:45] VITALS: BP 122/64; PULSE 100; O2SAT 98
== END 2023-06-22 15:47 | disposition home or self-care (01) ==
PROVIDERS: PCP Physician Assistant; Visit Provider Physician Assistant
DX: I25.810 Atherosclerosis of coronary artery bypass graft(s) without angina pectoris (principal); K21.9 Gastro-esophageal reflux disease without esophagitis; R51.9 Headache, unspecified; F33.1 Major depressive disorder, recurrent, moderate
CPT/HCPCS: 99214

== ENCOUNTER 2023-07-24 09:48 | Outpatient (AMB) | payer MEDICARE, MEDICAID, SELFPAY ==
--- NOTE | 2023-07-24 09:50 | A.OFFVIS_ITS ---
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: No Accompanied by: Self / Same As Patient Allergies calcium [Calcium] Allergy (Severe, Verified 07/24/23 12:00) HIVES doxycycline [Doxycycline] Allergy (Severe, Verified 07/24/23 12:00) FACIAL SWELLING,almost killed pt,inhouse for weakness,,incontinence?seizures Penicillins Allergy (Severe, Verified 07/24/23 12:00) Facial Swelling lactose Allergy (Mild, Verified 07/24/23 12:00) Unknown amoxicillin Allergy (Unknown, Verified 07/24/23 12:00) Throat swelling azithromycin [AZITHROMYCIN] Allergy (Unknown, Verified 07/24/23 12:00) Bloody Diarrhea cefuroxime [CEFUROXIME] Allergy (Unknown, Verified 07/24/23 12:00) Angioedema ciprofloxacin [From Cipro] Allergy (Unknown, Verified 07/24/23 12:00) Unknown clindamycin [CLINDAMYCIN] Allergy (Unknown, Verified 07/24/23 12:00) Anaphylaxis erythromycin base Allergy (Unknown, Verified 07/24/23 12:00) Diarrhea iron Allergy (Unknown, Verified 07/24/23 12:00) Unknown levofloxacin [From Levaquin] Allergy (Unknown, Verified 07/24/23 12:00) Unknown peanut [Peanut] Allergy (Unknown, Verified 07/24/23 12:00) Itching penicillin V Allergy (Unknown, Verified 07/24/23 12:00) ears and face swell,throat swell Sulfa (Sulfonamide Antibiotics) [SULFA(SULFONAMIDE ANTIBIOTICS)] Allergy (Unknown, Verified 07/24/23 12:00) ANAPHYLAXIS, swelling body,welts Cvdngac-LML-XdO Reductase Inhibitor Adverse Reaction (Severe, Verified 07/24/23 12:00) Muscle Pain cefazolin Adverse Reaction (Mild, Verified 07/24/23 12:00) Anaphylaxis RAISIN Allergy (Unknown, Uncoded 07/24/23 12:00) Itching TURNIPS Allergy (Unknown, Uncoded 07/24/23 12:00) Unknown cheetos Allergy (Uncoded 07/24/23 12:00) itchy, rash cranberry juice Allergy (Uncoded 07/24/23 12:00) mouth itchy, bumps grape juice Allergy (Uncoded 07/24/23 12:00) mouth itchy, bumps Medication List - Last Reconciled 07/24/23 by CHARLES Ross albuterol sulfate 2.5 mg (3 mL) inhalation Q6H PRN 15 days alirocumab (Praluent Pen) 75 mg subcut Q14D aspirin (Adult Aspirin Regimen) 81 mg PO DAILY 90 days budesonide 32 mcg/actuation 2 sprays intranasal BID 30 days cholecalciferol (vitamin D3) 50 mcg PO DAILY levalbuterol tartrate 45 mcg/actuation 2 inhalations inhalation Q6H 30 days loratadine 10 mg PO DAILY HPI 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 Patrick [place] [facility] Patient has not started cardiac rehabilitation due to this chronic pain which affects her daily activities, self care, upper extremity range of motions, mood, sleep and frequently causes fibromyalgia flare ups. Coughing and sneezing also increases her pain. Denies any fever, chills, infection, rash, swelling, redness, shortness of breaths, chest pain, dizziness, lightheadedness, any significant changes in her medical history, medications or recent hospitalizations. Location Sternum, tenderness in the incisional lines Duration Chronic pain >1 year Characteristics of symptom or complaint unable to describe constant aching, stabbing Aggravating or associated factors Movements, coughing, sneezing Relieving factors Staying still, resting, Tylenol prn-not effective Treatment Gabapentin trial [facility] Medical History (Updated 07/24/23 @ 15:44 by CHARLES Ross) CAD (coronary artery disease) IBS (irritable bowel syndrome) Exocrine pancreatic insufficiency Lichen sclerosus Cough Bilateral knee pain Rectal prolapse Pre-op examination Small intestinal bacterial overgrowth Appendicitis Kidney stone Carpal tunnel syndrome Right shoulder injury Vertigo Chronic headaches Diverticulosis Fibromyalgia Depression Surgical History S/P triple vessel bypass History of endometrial ablation History of esophagogastroduodenoscopy (EGD) Hx of colonoscopy Hx of carpal tunnel repair (~07/2019) Hx of rotator cuff surgery Hx of shoulder surgery Hx of appendectomy Hx of cholecystectomy Family History Father Myocardial infarction, Onset Age: 46 Mother Congestive heart failure Stomach problems Stomach ulcer Anxiety and depression Myocardial infarction, Onset Age: 50 Mental health disorder Sister Heart problem Myocardial infarction, Onset Age: 59 Sister Afib Brother Throat cancer Lung cancer Social History Household Members: Family Housing: Apartment Alcohol intake: never Patient Tobacco Use Status: Former Tobacco user Quit Date: 2022 Tobacco use type: Cigarette Years Smoked: 30 +/- e-Cigarette/Vaping Use: Never Used Second Hand Smoke Exposure: No Advance Directives Date on File: 02/25/22 service: No Current occupational status: disabled 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 Alert and oriented. Mood and affect appropriate. Follows and participates in conversation appropriately. Respiratory effort is unlabored. No cough. Able to transition from sit to stand unassisted. Ambulates with bilaterally normal heel strike and toe off. Tenderness to palpation in the bilateral thoracic cage along the T3-T6 intercostal nerves. Chest Chest palpation & inspection: normal inspection of the chest, tenderness (Allodynia and TTP along incision lines. Keloid scars noted.) sternum and No rash Results AMB Rapid Strep AMB Rapid Strep Negative Last Edit by LUIZA Welsh on 07/24/23 12:22 Results Reviewed Results Reviewed: XR CHEST 06/16/23 CLINICAL INFORMATION: Chest pain. COMPARISON: 02/14/2023 FINDINGS: The lungs are well expanded. No focal consolidation. No pleural effusion. Cardiac silhouette is unchanged. Prior median sternotomy. IMPRESSION: No acute abnormality. CT/CT chest w IV con 02/14/23 IMPRESSION: Ununited median sternotomy with cerclage wires and plates and screws. Surgical hardware appears intact. No parasternal fluid collection. Chest and sternum x-ray 11/07/22 CLINICAL INFORMATION: Atherosclerosis of coronary artery bypass grafts COMPARISON: Previous chest x-ray June 2022 FINDINGS: Chest: The cardiac and mediastinal contours are normal. There are post-CABG changes The interval from June 2022. Hilar and mediastinal contours are unremarkable. The lungs are clear. No pleural effusion or pneumothorax. Median sternotomy with cerclage wires and small plates and screws. Degenerative changes of the spine. Sternum: No fracture or dislocation. New sternal hardware with cerclage wires and small plates and screws. Surgical hardware appears intact. Adjacent soft tissues appear normal. IMPRESSION: New post CABG changes. No evidence for acute disease in the chest. New median sternotomy hardware with cerclage wires and small plates and screws that appear intact. Assessment & Plan Assessment & Plan (1) Intercostal neuralgia: Code(s): G58.8 - Other specified mononeuropathies (2) Chest wall pain: Code(s): R07.89 - Other chest pain (3) Sternum pain: Code(s): R07.89 - Other chest pain Plan Schedule Bilateral Diagnostic T3, T4, T5, T6 Intercostal Nerve Blocks with local and US guidance. If she has good relief from diagnostic nerve blocks, will consider steroid injections or other modalities like nerve stimulation. Expectations, risks and benefits were reviewed. Medical release request send to Dr. 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 All questions and concerns have been answered and patient agreed with the plan. Follow up after injections and sooner as needed. Anticoagulation: Patient on anticoagulation (Aspirin) and instructions given on when to pause with prescribing physician permission. Justification for interventional therapy: ? Patient with average pain > 6/10 ? Patient has exhausted conservative therapy, gabapentin trial, Tylenol, activity modifications ? 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 Medications: New capsaicin 0.1% (Arthritis Pain Relief (capsaicin)) do not wash area for at least 30 min after application 1 appl topical TID 60 grams 0RF pain G58.8 - Other specified mononeuropathies, R07.89 - Other chest pain Coding Level of Care Code New Pt Level 4 (65421) Diagnoses Intercostal neuralgia G58.8 Chest wall pain R07.89 Sternum pain R07.89
[2023-07-24 09:54] VITALS: BP 98/93; PULSE 78; O2SAT 99; BMI 40.3
== END 2023-07-24 10:23 | disposition home or self-care (01) ==
PROVIDERS: PCP Physician Assistant; Referring Provider Internal Medicine; Visit Provider Nurse Practitioner Family
DX: G58.8 Other specified mononeuropathies (principal); R07.89 Other chest pain
CPT/HCPCS: 99204; 99214

== ENCOUNTER → 2023-07-24 09:48 | Outpatient (BNVA) | payer MEDICARE, MEDICAID, SELFPAY | PROVIDERS: PCP Physician Assistant; Visit Provider Nurse Practitioner Family | DX: M96.89 Other intraoperative and postprocedural complications and disorders of the musculoskeletal system (principal); M95.4 Acquired deformity of chest and rib; G58.8 Other specified mononeuropathies; R07.89 Other chest pain; Z79.01 Long term (current) use of anticoagulants; Z79.82 Long term (current) use of aspirin | CPT/HCPCS: 0241U; 99202 ==

== ENCOUNTER 2023-07-24 11:13 | Outpatient (AMB) | payer MEDICARE, MEDICAID, SELFPAY ==
--- NOTE | 2023-07-24 11:59 | MHC.OFFWIV ---
Intake Vital Signs 07/24/23 12:10 Weight 98.883 kg BP 94/60 Blood Pressure Location Lt brachial Position Sitting Pulse 92 Pulse Source Pulse Oximeter Temp 98.2 F Temp Source Oral Pulse Oximetry (%) 99 Oxygen Delivery Method Room Air Intake Visit Reasons: EST/ sore throat and ear pain ([id number]) Intake Note: Patient here for throat burning , bilat ear pain which has been going on for about a couple of days. Patient Tobacco Use Status: Former Tobacco user Quit Date: 2022 Allergies calcium [Calcium] Allergy (Severe, Verified 07/24/23 12:00) HIVES doxycycline [Doxycycline] Allergy (Severe, Verified 07/24/23 12:00) FACIAL SWELLING,almost killed pt,inhouse for weakness,,incontinence?seizures Penicillins Allergy (Severe, Verified 07/24/23 12:00) Facial Swelling lactose Allergy (Mild, Verified 07/24/23 12:00) Unknown amoxicillin Allergy (Unknown, Verified 07/24/23 12:00) Throat swelling azithromycin [AZITHROMYCIN] Allergy (Unknown, Verified 07/24/23 12:00) Bloody Diarrhea cefuroxime [CEFUROXIME] Allergy (Unknown, Verified 07/24/23 12:00) Angioedema ciprofloxacin [From Cipro] Allergy (Unknown, Verified 07/24/23 12:00) Unknown clindamycin [CLINDAMYCIN] Allergy (Unknown, Verified 07/24/23 12:00) Anaphylaxis erythromycin base Allergy (Unknown, Verified 07/24/23 12:00) Diarrhea iron Allergy (Unknown, Verified 07/24/23 12:00) Unknown levofloxacin [From Levaquin] Allergy (Unknown, Verified 07/24/23 12:00) Unknown peanut [Peanut] Allergy (Unknown, Verified 07/24/23 12:00) Itching penicillin V Allergy (Unknown, Verified 07/24/23 12:00) ears and face swell,throat swell Sulfa (Sulfonamide Antibiotics) [SULFA(SULFONAMIDE ANTIBIOTICS)] Allergy (Unknown, Verified 07/24/23 12:00) ANAPHYLAXIS, swelling body,welts Vxxgaes-WCQ-PfH Reductase Inhibitor Adverse Reaction (Severe, Verified 07/24/23 12:00) Muscle Pain cefazolin Adverse Reaction (Mild, Verified 07/24/23 12:00) Anaphylaxis RAISIN Allergy (Unknown, Uncoded 07/24/23 12:00) Itching TURNIPS Allergy (Unknown, Uncoded 07/24/23 12:00) Unknown cheetos Allergy (Uncoded 07/24/23 12:00) itchy, rash cranberry juice Allergy (Uncoded 07/24/23 12:00) mouth itchy, bumps grape juice Allergy (Uncoded 07/24/23 12:00) mouth itchy, bumps Do you need a note to return to daycare/school/sports/work: No HPI HPI Comments History of Present Illness Details 58-year-old female presents with fatigue, malaise, bilateral ear pain, myalgias, productive cough for the last few days worsening. No known sick contacts. Denies chest pain, shortness of breath, nausea, vomiting, abdominal pain, headache, vision changes, dizziness, weakness, changes in urination, neck pain. Physical exam with discomfort with manipulation of left external ear and erythematous left ear canal. Normal right ear canal and tympanic membrane. Normal left tympanic membrane. No mastoid tenderness Concerning for otitis externa with concomitant viral illness. Unlikely mastoiditis, otitis media, meningitis, encephalitis. Plan neomycin polymyxin B drops as patient does have a ciprofloxacin allergy. Educated patient on diagnosis and treatment plan, answered all question, patient verbalizes understanding. At this time patient will be discharged home, advised to return with new or worsening symptoms. Educated on worrisome signs and symptoms and when to return. At this time I feel comfortable discharge home. [facility] Medical History (Updated 07/24/23 @ 10:26 by CHARLES Ross) CAD (coronary artery disease) IBS (irritable bowel syndrome) Exocrine pancreatic insufficiency Lichen sclerosus Cough Bilateral knee pain Rectal prolapse Pre-op examination Small intestinal bacterial overgrowth Appendicitis Kidney stone Carpal tunnel syndrome Right shoulder injury Vertigo Chronic headaches Diverticulosis Fibromyalgia Depression Surgical History S/P triple vessel bypass History of endometrial ablation History of esophagogastroduodenoscopy (EGD) Hx of colonoscopy Hx of carpal tunnel repair (~07/2019) Hx of rotator cuff surgery Hx of shoulder surgery Hx of appendectomy Hx of cholecystectomy Family History Father Myocardial infarction, Onset Age: 46 Mother Congestive heart failure Stomach problems Stomach ulcer Anxiety and depression Myocardial infarction, Onset Age: 50 Mental health disorder Sister Heart problem Myocardial infarction, Onset Age: 59 Sister Afib Brother Throat cancer Lung cancer Social History Household Members: Family Housing: Apartment Alcohol intake: never Patient Tobacco Use Status: Former Tobacco user Quit Date: 2022 Tobacco use type: Cigarette Years Smoked: 30 +/- e-Cigarette/Vaping Use: Never Used Second Hand Smoke Exposure: No Advance Directives Date on File: 02/25/22 service: No Current occupational status: disabled 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 Appearance: Alert.? Oriented X3.? No acute distress.? Head: Normocephalic, atraumatic, no step-offs or deformities Eyes: Pupils equal, round and reactive to light.? ENT: Pharynx normal.?discomfort with manipulation of left external ear and erythematous left ear canal. Normal right ear canal and tympanic membrane. Normal left tympanic membrane. No mastoid tenderness Neck: Normal inspection.? Neck supple.? CVS: Normal heart rate and rhythm.? Pulses normal.? Respiratory: No respiratory distress.? Breath sounds normal.? Abdomen: Soft and nontender.? Skin: Skin warm and dry.? Normal skin color.? Normal skin turgor.? Extremities: No lower extremity edema.? No calf ttp. 5/5 strength to bilateral upper and lower extremities Back: No midline tenderness, no C-spine tenderness, full range of motion, no CVA tenderness bilaterally Neuro: Oriented X 3.? No motor deficit.? No sensory deficit. CN 2-12 intact Results AMB Rapid Strep AMB Rapid Strep Negative Last Edit by LUIZA Welsh on 07/24/23 12:22 Assessment & Plan Assessment & Plan (1) Otitis externa: Code(s): H60.90 - Unspecified otitis externa, unspecified ear (2) Viral illness: Code(s): B34.9 - Viral infection, unspecified Plan Take your medications as prescribed. If you were prescribed antibiotics today, it is important that you take your medication to their entirety, do not skip any doses, do not finish them early. Follow-up with your primary care provider this week. Return to the emergency department with new or worsening symptoms. Such as fevers, chills, chest pain, shortness of breath, nausea, vomiting, dizziness, headache, vision changes, lethargy In case of emergency call 911 Orders: Orders SARS-CoV2/FLU/RSV Today B34.9 - Viral infection, unspecified AMB Rapid Strep Screen Today Z13.9 - Encounter for screening, unspecified Medications: New tyrkahct-mabdgubms-PC 3.5-10,000-1 mg/mL-unit/mL-% 4 drps otic (ear) left TID 10 days 10 mL 0RF albuterol sulfate 90 mcg/actuation 2 puffs inhalation Q6H PRN 6.7 grams 0RF shortness of breath or wheezing Coding Level of Care Code Est Pt Level 3 (19998) Diagnoses Otitis externa H60.90 Viral illness B34.9
[2023-07-24 12:10] VITALS: BP 94/60; PULSE 92; TEMP 36.8; O2SAT 99
== END 2023-07-24 15:28 | disposition home or self-care (01) ==
PROVIDERS: PCP Physician Assistant; Visit Provider Physician Assistant
DX: H60.93 Unspecified otitis externa, bilateral (principal); B34.9 Viral infection, unspecified; J02.9 Acute pharyngitis, unspecified
CPT/HCPCS: 87880; 99213

== ENCOUNTER 2023-07-24 14:16 | Outpatient (REF) | payer MEDICARE, MEDICAID, SELFPAY ==
[2023-07-24 16:07] LABS: Influenza A PCR NEGATIVE (Negative); Influenza B PCR NEGATIVE (Negative); Resp Syncy Virus RNA Qual PCR NEGATIVE (Negative); SARS COV2 PCR INHOUSE NEGATIVE (Negative)
== END 2023-07-24 14:17 | disposition home or self-care (01) ==
LOC: HO.HMGCLNP 14:16
PROVIDERS: Visit Provider Physician Assistant
DX: Z13.89 Encounter for screening for other disorder (principal)
CPT/HCPCS: 0241U

== ENCOUNTER 2023-08-03 08:46 | Outpatient (AMB) | payer MEDICARE, MEDICAID, SELFPAY ==
[2023-08-03 08:52] VITALS: BP 94/66; PULSE 66; BMI 40.7
--- NOTE | 2023-08-03 08:52 | MHC.OFFVIS ---
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 Accompanied by: Family/Other Allergies calcium [Calcium] Allergy (Severe, Verified 08/03/23 08:55) HIVES doxycycline [Doxycycline] Allergy (Severe, Verified 08/03/23 08:55) FACIAL SWELLING,almost killed pt,inhouse for weakness,,incontinence?seizures Penicillins Allergy (Severe, Verified 08/03/23 08:55) Facial Swelling lactose Allergy (Mild, Verified 08/03/23 08:55) Unknown amoxicillin Allergy (Unknown, Verified 08/03/23 08:55) Throat swelling azithromycin [AZITHROMYCIN] Allergy (Unknown, Verified 08/03/23 08:55) Bloody Diarrhea cefuroxime [CEFUROXIME] Allergy (Unknown, Verified 08/03/23 08:55) Angioedema ciprofloxacin [From Cipro] Allergy (Unknown, Verified 08/03/23 08:55) Unknown clindamycin [CLINDAMYCIN] Allergy (Unknown, Verified 08/03/23 08:55) Anaphylaxis erythromycin base Allergy (Unknown, Verified 08/03/23 08:55) Diarrhea iron Allergy (Unknown, Verified 08/03/23 08:55) Unknown levofloxacin [From Levaquin] Allergy (Unknown, Verified 08/03/23 08:55) Unknown peanut [Peanut] Allergy (Unknown, Verified 08/03/23 08:55) Itching penicillin V Allergy (Unknown, Verified 08/03/23 08:55) ears and face swell,throat swell Sulfa (Sulfonamide Antibiotics) [SULFA(SULFONAMIDE ANTIBIOTICS)] Allergy (Unknown, Verified 08/03/23 08:55) ANAPHYLAXIS, swelling body,welts Jepzgfa-GKL-QfR Reductase Inhibitor Adverse Reaction (Severe, Verified 08/03/23 08:55) Muscle Pain cefazolin Adverse Reaction (Mild, Verified 08/03/23 08:55) Anaphylaxis RAISIN Allergy (Unknown, Uncoded 08/03/23 08:55) Itching TURNIPS Allergy (Unknown, Uncoded 08/03/23 08:55) Unknown cheetos Allergy (Uncoded 08/03/23 08:55) itchy, rash cranberry juice Allergy (Uncoded 08/03/23 08:55) mouth itchy, bumps grape juice Allergy (Uncoded 08/03/23 08:55) mouth itchy, bumps Medication List - Last Reconciled 08/03/23 by Peter Quinn MD albuterol sulfate 2.5 mg (3 mL) inhalation Q6H PRN 15 days alirocumab (Praluent Pen) 75 mg subcut Q14D aspirin (Adult Aspirin Regimen) 81 mg PO DAILY 90 days budesonide 32 mcg/actuation 2 sprays intranasal BID 30 days capsaicin 0.1% (Arthritis Pain Relief (capsaicin)) 1 appl topical TID cholecalciferol (vitamin D3) 50 mcg PO DAILY levalbuterol tartrate 45 mcg/actuation 2 inhalations inhalation Q6H 30 days linezolid 600 mg PO Q12H 7 days loratadine 10 mg PO DAILY nbeslacw-jxloxkrff-TT 3.5-10,000-1 mg/mL-unit/mL-% 4 drps otic (ear) left TID 10 days Xopenex HFA 45 mcg/actuation (levalbuterol tartrate) 2 inhalations inhalation Q6H 30 days NS HPI HPI Comments History of Present Illness Details Yomaira returns for follow-up. Previous patient of , but switched to me. In 2022, she was apparently admitted for NSTEMI. Then underwent cardiac catheterization showing multivessel disease leading to bypass surgery. That was in turn complicated by sternal wound infection requiring debridement and she apparently had wound VAC followed by antibiotics. There is a question of nonunion on the CT scan but according to my conversation today with cardiac surgeon Dr. Patrick, that is apparently not the case. She continues to have extensive chest pain and also shoulder pain extra. She states she really can not move her shoulders too much. Otherwise, due to low blood pressure issues, beta-blockers have been stopped. Lot of statin intolerance. She is on Praluent. [facility] Medical History (Updated 07/25/23 @ 08:14 by Angelo Tejada PA-C) CAD (coronary artery disease) IBS (irritable bowel syndrome) Exocrine pancreatic insufficiency Lichen sclerosus Cough Bilateral knee pain Rectal prolapse Pre-op examination Small intestinal bacterial overgrowth Appendicitis Kidney stone Carpal tunnel syndrome Right shoulder injury Vertigo Chronic headaches Diverticulosis Fibromyalgia Depression Surgical History S/P triple vessel bypass History of endometrial ablation History of esophagogastroduodenoscopy (EGD) Hx of colonoscopy Hx of carpal tunnel repair (~07/2019) Hx of rotator cuff surgery Hx of shoulder surgery Hx of appendectomy Hx of cholecystectomy Family History Father Myocardial infarction, Onset Age: 46 Mother Congestive heart failure Stomach problems Stomach ulcer Anxiety and depression Myocardial infarction, Onset Age: 50 Mental health disorder Sister Heart problem Myocardial infarction, Onset Age: 59 Sister Afib Brother Throat cancer Lung cancer Social History Household Members: Family Housing: Apartment Alcohol intake: never Patient Tobacco Use Status: Former Tobacco user Quit Date: 2022 Tobacco use type: Cigarette Years Smoked: 30 +/- e-Cigarette/Vaping Use: Never Used Second Hand Smoke Exposure: No Advance Directives Date on File: 02/25/22 service: No Current occupational status: disabled 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 Cognitive needs: No Hearing needs: No Vision needs: Yes (Glasses) Female Reproductive History Menstrual Age of Menarche: 15 Review of Systems Const Denies weakness ENT Denies dizziness Card Denies chest pain with activity, Denies syncope, Denies rapid heart rate, Denies pedal edema, Denies leg edema, Denies lightheadedness, Denies palpitations and Denies orthopnea Resp Denies cough GI Denies hematochezia and Denies change in stool character Musc Denies abnormal gait, Denies muscle cramps, Denies muscle weakness, Denies numbness, Denies radiating pain into limb and Denies tingling Neuro Denies abnormal gait, Denies dizziness, Denies syncope, Denies numbness, Denies tingling and Denies weakness Endo Denies palpitations Physical Exam Vital Signs: Last Vital Signs Pulse 66 08/03/23 08:52 BP 94/66 08/03/23 08:52 BMI result Body Mass Index 40.7 Const General: comfortable and no acute distress Orientation/consciousness: patient oriented x3 HEENT Other: Unremarkable Head: Yes normal to inspection Neck Neck: Yes normal visual inspection Chest Chest palpation & inspection: normal inspection of the chest Resp Auscultation: clear to auscultation bilaterally Cardio Palpation: normal PMI Heart sounds: S1 normal heart sound present, S2 normal heart sound present, no gallops, no murmurs and no rubs GI Palpation (GI): Soft to palpation Back/Spine/Pelvis Other: unremarkable Skin General skin exam: no rashes or lesions noted Neuro General: patient oriented x3 Extrem General: Yes normal to inspection Psych Mental Status: mental status grossly normal Assessment & Plan Assessment & Plan (1) CAD (coronary artery disease): Code(s): I25.10 - Atherosclerotic heart disease of [place] coronary artery without angina pectoris Qualifiers: Associated angina: without angina Coronary Disease-Associated Artery/Lesion type: bypass graft [place] vs. transplanted heart: [place] heart Qualified Code(s): I25.810 - Atherosclerosis of coronary artery bypass graft(s) without angina pectoris (2) S/P CABG (coronary artery bypass graft): Code(s): Z95.1 - Presence of aortocoronary bypass graft (3) Disruption or dehiscence of closure of sternum or sternotomy: Code(s): T81.32XA - Disruption of internal operation (surgical) wound, not elsewhere classified, initial encounter Qualifiers: Encounter type: initial encounter Qualified Code(s): T81.32XA - Disruption of internal operation (surgical) wound, not elsewhere classified, initial encounter Plan Continue long-term aspirin. Off beta-blockers due to low blood pressure. With regard to statins/dyslipidemia, history of statin intolerance. She is on Praluent. Check lipids. With regard to the continued sternal pain, discussed with from cardiac surgery. Plan for repeat CT chest. He agrees to follow-up in clinic. Orders: Orders CT chest wo IV con Today T81.32XA - Disruption of internal operation (surgical) wound, not elsewhere classified, initial encounter, Z95.1 - Presence of aortocoronary bypass graft Lipid Panel Today I25.810 - Atherosclerosis of coronary artery bypass graft(s) without angina pectoris Coding Level of Care Code Est Pt Level 4 (67948) Diagnoses Coronary artery disease involving coronary bypass graft of [place] heart without angina pectoris I25.810 Associated angina: without angina Coronary Disease-Associated Artery/Lesion type: bypass graft [place] vs. transplanted heart: [place] heart S/P CABG (coronary artery bypass graft) Z95.1 Disruption or dehiscence of closure of sternum or sternotomy, initial encounter T81.32XA Encounter type: initial encounter
== END 2023-08-03 09:26 | disposition home or self-care (01) ==
PROVIDERS: PCP Physician Assistant; Visit Provider Internal Medicine
DX: I25.810 Atherosclerosis of coronary artery bypass graft(s) without angina pectoris (principal); Z95.1 Presence of aortocoronary bypass graft; T81.32XA Disruption of internal operation (surgical) wound, not elsewhere classified, initial encounter
CPT/HCPCS: 99214

== ENCOUNTER 2023-08-03 08:46 | Outpatient (REF) | payer MEDICARE, MEDICAID, SELFPAY ==
[2023-08-03 11:02] LABS: Cholesterol 126 mg/dL (<200); HDL Cholesterol 38 mg/dL (>40); LDL Cholesterol Calculated 70 mg/dL (<100); Triglycerides 90 mg/dL (<150)
== END 2023-08-03 08:47 | disposition home or self-care (01) ==
LOC: HO.LAB 08:46
PROVIDERS: PCP Physician Assistant; Visit Provider Internal Medicine
DX: I25.810 Atherosclerosis of coronary artery bypass graft(s) without angina pectoris (principal)
CPT/HCPCS: 36415; 80061; 99212

== ENCOUNTER 2023-08-03 13:11 | Outpatient (AMB) | payer MEDICARE, MEDICAID, SELFPAY ==
--- NOTE | 2023-08-03 13:06 | A.OFFPC_ITS ---
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 Accompanied by: Self / Same As Patient Allergies calcium [Calcium] Allergy (Severe, Verified 08/03/23 13:21) HIVES doxycycline [Doxycycline] Allergy (Severe, Verified 08/03/23 13:21) FACIAL SWELLING,almost killed pt,inhouse for weakness,,incontinence?seizures Penicillins Allergy (Severe, Verified 08/03/23 13:21) Facial Swelling lactose Allergy (Mild, Verified 08/03/23 13:21) Unknown amoxicillin Allergy (Unknown, Verified 08/03/23 13:21) Throat swelling azithromycin [AZITHROMYCIN] Allergy (Unknown, Verified 08/03/23 13:21) Bloody Diarrhea cefuroxime [CEFUROXIME] Allergy (Unknown, Verified 08/03/23 13:21) Angioedema ciprofloxacin [From Cipro] Allergy (Unknown, Verified 08/03/23 13:21) Unknown clindamycin [CLINDAMYCIN] Allergy (Unknown, Verified 08/03/23 13:21) Anaphylaxis erythromycin base Allergy (Unknown, Verified 08/03/23 13:21) Diarrhea iron Allergy (Unknown, Verified 08/03/23 13:21) Unknown levofloxacin [From Levaquin] Allergy (Unknown, Verified 08/03/23 13:21) Unknown peanut [Peanut] Allergy (Unknown, Verified 08/03/23 13:21) Itching penicillin V Allergy (Unknown, Verified 08/03/23 13:21) ears and face swell,throat swell Sulfa (Sulfonamide Antibiotics) [SULFA(SULFONAMIDE ANTIBIOTICS)] Allergy (Unknown, Verified 08/03/23 13:21) ANAPHYLAXIS, swelling body,welts Smdqzkv-ZIN-XvT Reductase Inhibitor Adverse Reaction (Severe, Verified 08/03/23 13:21) Muscle Pain cefazolin Adverse Reaction (Mild, Verified 08/03/23 13:21) Anaphylaxis RAISIN Allergy (Unknown, Uncoded 08/03/23 13:06) Itching TURNIPS Allergy (Unknown, Uncoded 08/03/23 13:06) Unknown cheetos Allergy (Uncoded 08/03/23 13:06) itchy, rash cranberry juice Allergy (Uncoded 08/03/23 13:06) mouth itchy, bumps grape juice Allergy (Uncoded 08/03/23 13:06) mouth itchy, bumps Medication List - Last Reconciled 08/03/23 by Angelo Tejada PA-C albuterol sulfate 2.5 mg (3 mL) inhalation Q6H PRN 15 days alirocumab (Praluent Pen) 75 mg subcut Q14D aspirin (Adult Aspirin Regimen) 81 mg PO DAILY 90 days budesonide 32 mcg/actuation 2 sprays intranasal BID 30 days capsaicin 0.1% (Arthritis Pain Relief (capsaicin)) 1 appl topical TID cholecalciferol (vitamin D3) 50 mcg PO DAILY levalbuterol tartrate 45 mcg/actuation 2 inhalations inhalation Q6H 30 days linezolid 600 mg PO Q12H 7 days loratadine 10 mg PO DAILY fpylfoly-ovmopmigq-AN 3.5-10,000-1 mg/mL-unit/mL-% 4 drps otic (ear) left TID 10 days Xopenex HFA 45 mcg/actuation (levalbuterol tartrate) 2 inhalations inhalation Q6H 30 days NS Tobacco use date assessed: 06/22/23 Dental Screening Dental Screen Date: 08/03/23 Did you have a dental visit in the last 12 months?: Yes Did you have a dental problem in the last 6 months where you did not have access to dental care?: No Was dental information given to patient?: Patient has dentist HPI GI issue HPI Details Patient is a 58-year-old female being evaluated today via telephone for problem visit. Patient has a past medical history significant for coronary artery disease status post coronary artery bypass, former, asthma. Reports having upper abdominal bloating and pain worse after she eats. Does already had history of cholecystectomy. Does have history of IBS and has inconsistent bowel movements. She has tried Mylanta though has not been helpful. [facility] Medical History (Updated 07/25/23 @ 08:14 by Angelo Tejada PA-C) CAD (coronary artery disease) IBS (irritable bowel syndrome) Exocrine pancreatic insufficiency Lichen sclerosus Cough Bilateral knee pain Rectal prolapse Pre-op examination Small intestinal bacterial overgrowth Appendicitis Kidney stone Carpal tunnel syndrome Right shoulder injury Vertigo Chronic headaches Diverticulosis Fibromyalgia Depression Surgical History S/P triple vessel bypass History of endometrial ablation History of esophagogastroduodenoscopy (EGD) Hx of colonoscopy Hx of carpal tunnel repair (~07/2019) Hx of rotator cuff surgery Hx of shoulder surgery Hx of appendectomy Hx of cholecystectomy Family History Father Myocardial infarction, Onset Age: 46 Mother Congestive heart failure Stomach problems Stomach ulcer Anxiety and depression Myocardial infarction, Onset Age: 50 Mental health disorder Sister Heart problem Myocardial infarction, Onset Age: 59 Sister Afib Brother Throat cancer Lung cancer Social History Household Members: Family Housing: Apartment Alcohol intake: never Patient Tobacco Use Status: Former Tobacco user Quit Date: 2022 Tobacco use type: Cigarette Years Smoked: 30 +/- e-Cigarette/Vaping Use: Never Used Second Hand Smoke Exposure: No Advance Directives Date on File: 02/25/22 service: No Current occupational status: disabled 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 Jeronimo Najera, Lyly Triplett, Kike Nuñez and colleagues, with an educational melo from [employer]. Review of Systems Const Denies headache(s) Eyes Denies loss of vision ENT Denies vertigo, Denies dizziness, Denies headache(s) and Denies sore throat Card Denies chest pain, Denies leg edema and Denies lightheadedness Resp Denies cough, Denies hemoptysis and Denies wheezing GI Reports abdominal pain and Reports bloating Denies urinary frequency, Denies dysuria and Denies urinary urgency Musc Denies arthralgias, Denies joint swelling, Denies numbness and Denies tingling Neuro Denies behavioral changes, Denies vertigo, Denies dizziness, Denies headache(s), Denies loss of vision, Denies memory loss, Denies numbness and Denies tingling Psych Denies anxiety, Denies behavioral changes, Denies depression, Denies memory loss and Denies panic attacks Elpidio/Lymph Denies easy bleeding and Denies easy bruising Aller/Immun Denies wheezing Physical exam (Primary Care) Tobacco/Smoking Status: Tobacco use Status Tobacco use date assessed 06/22/23 08/03/23 13:06 Patient Tobacco Use Status Former Tobacco user 08/03/23 13:06 Tobacco use type Cigarette 08/03/23 13:06 e-Cigarette/Vaping Use Never Used 08/03/23 13:06 Thrive Assessment: Date of Thrive Assessment Date Thrive assessed 06/22/23 08/03/23 13:06 Telehealth Telehealth Location of provider rendering services: practice address Location of patient: address on file Patient Identification confirmed using: Name, : Yes Telehealth method: voice only Patient verbally consented to treatment: Yes Patient verbally consented to billing insurance company: Yes Patient informed of any privacy concerns related to visit: Yes Minutes spent on Phone/Video with Pt.: 11 Assessment and Plan Assessment & Plan (1) GERD (gastroesophageal reflux disease): Code(s): K21.9 - Gastro-esophageal reflux disease without esophagitis Qualifiers: Esophagitis presence: esophagitis presence not specified Qualified Code(s): K21.9 - Gastro-esophageal reflux disease without esophagitis Plan: Patient reports some upper epigastric abdominal pain and bloating. Signs and symptoms consistent with GERD. Will supply patient with omeprazole 20 mg. Advised on dietary restrictions (2) Abdominal bloating: Code(s): R14.0 - Abdominal distension (gaseous) Plan: As above Medications: New omeprazole 20 mg PO DAILY 30 days 30 caps 1RF K21.9 - Gastro-esophageal reflux disease without esophagitis, R14.0 - Abdominal distension (gaseous) Coding Level of Care Code Tele Est Pt Level 3 (74614) Diagnoses Gastroesophageal reflux disease, unspecified whether esophagitis present K21.9 Esophagitis presence: esophagitis presence not specified Abdominal bloating R14.0
== END 2023-08-03 14:35 | disposition home or self-care (01) ==
LOC: HO.HMGH 13:12
PROVIDERS: PCP Physician Assistant; Visit Provider Physician Assistant
DX: K21.9 Gastro-esophageal reflux disease without esophagitis (principal); R14.0 Abdominal distension (gaseous)
CPT/HCPCS: 99442

== ENCOUNTER 2023-08-07 10:48 | Emergency (ER) | payer MEDICARE, MEDICAID, SELFPAY ==
--- NOTE | ~2023-08-07 | CT_ITS ---
EXAMINATION: CT ABDOMEN AND PELVIS WITH CONTRAST CLINICAL INFORMATION: Upper abdominal pain and bloating. COMPARISON: 08/30/2017 TECHNIQUE: Multidetector volumetric images were obtained from the superior aspect of the liver through the pubic symphysis following administration 85 mL of Omnipaque 350 intravenous contrast. Sagittal and coronal reformatted images were obtained on the technologist's workstation. Oral contrast: No This CT examination was performed using dose optimization techniques as appropriate, variously including the following: *Automated exposure control *Adjustment of mA and/or kV according to patient size (this includes techniques or standardized protocols for targeted exams where dose is matched to indication/reason for exam; i.e. extremities or head) *Use of iterative reconstruction technique DLP: 1080 mGy-cm FINDINGS: LUNG BASES: The visualized lung bases are unremarkable. LIVER, GALLBLADDER, AND BILIARY TREE: The liver is normal in size and contour. No focal hepatic lesion or biliary ductal dilatation is present. The gallbladder is surgically absent. PANCREAS: Unremarkable. SPLEEN: Unremarkable. ADRENAL GLANDS: Unremarkable. KIDNEYS AND URETERS: The kidneys are normal in size, shape, and attenuation. 3 mm upper pole nonobstructing left renal calculus. Upper pole right renal cyst. No further imaging follow-up is needed. No hydronephrosis or perinephric stranding. BLADDER: Unremarkable. GASTROINTESTINAL TRACT: Small and large bowel loops are of normal caliber. No small bowel obstruction. The appendix is not visualized. ABDOMINAL WALL: No significant hernia is appreciated. LYMPH NODES: No bulky lymphadenopathy. VASCULAR: Normal caliber abdominal aorta. PELVIC VISCERA: Unremarkable. OSSEOUS STRUCTURES: No destructive bone lesions. CT/CT abdomen pelvis w IV con IMPRESSION: 3 mm upper pole nonobstructing left renal calculus. No hydronephrosis.
--- NOTE | 2023-08-07 10:52 | ED_ITS ---
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 She has had prior appendectomy and cholecystectomy. She comes in today with c/o bloated upper abdominal pain mild nausea and not feeling well x 4 days. Has had this before after CABG but not like this. Able to have BM and pass gas. MD elicited complaint: abdominal pain Pertinent past history: other (hx of same in past) Onset (ago): day(s) (4) Pain Consistency: constant Location: epigastric Severity: moderate Quality: aching and fullness Radiation: none Migration to: no migration Exacerbating factors: eating Relieving factors: nothing Context: history of similar episodes Associated symptoms: nausea Related Data Previous Rx's Medication Instructions Recorded aspirin 81 mg tablet,delayed 81 mg PO DAILY 90 days #90 tabs 11/03/22 release (Adult Aspirin Regimen) levalbuterol tartrate 45 2 inh inhalation Q6H 30 days #15 06/04/23 mcg/actuation aerosol inhaler grams cholecalciferol (vitamin D3) 50 50 mcg PO DAILY #90 caps 06/05/23 mcg (2,000 unit) capsule loratadine 10 mg tablet 10 mg PO DAILY #90 tabs 06/05/23 albuterol sulfate 2.5 mg/3 mL 2.5 mg (3 mL) inhalation Q6H PRN 06/22/23 (0.083 %) solution for nebulization shortness of breath or wheezing 15 days #180 mL budesonide 32 mcg/actuation nasal 2 spray intranasal BID 30 days 06/22/23 spray #8.43 mL alirocumab 75 mg/mL subcutaneous 75 mg subcut Q14D #2 mL 07/21/23 pen injector (Praluent Pen) capsaicin 0.1 % topical cream 1 appl topical TID pain #60 grams 07/24/23 (Arthritis Pain Relief (capsaicin)) [id number] 3.5 4 drp otic (ear) left TID 10 days 07/24/23 mg-10,000 unit/mL-1 % ear #10 mL drops,susp Xopenex HFA 45 mcg/actuation 2 inh inhalation Q6H 30 days #15 07/25/23 aerosol inhaler (levalbuterol grams tartrate) linezolid 600 mg tablet 600 mg PO Q12H 7 days #14 tabs 07/25/23 omeprazole 20 mg capsule,delayed 20 mg PO DAILY 30 days #30 caps 08/03/23 release omeprazole 20 mg capsule,delayed 20 mg PO BID #37 caps 08/07/23 release Allergies Allergy/AdvReac Type Severity Reaction Status Date / Time calcium [Calcium] Allergy Severe HIVES Verified 08/07/23 12:03 doxycycline [Doxycycline] Allergy Severe FACIAL Verified 08/07/23 12:03 SWELLING,almost killed pt,inhouse for weakness,,incontinence?seizures Penicillins Allergy Severe Facial Verified 08/07/23 12:03 Swelling lactose Allergy Mild Unknown Verified 08/07/23 12:03 amoxicillin Allergy Unknown Throat Verified 08/07/23 12:03 swelling azithromycin [AZITHROMYCIN] Allergy Unknown Bloody Verified 08/07/23 12:03 Diarrhea cefuroxime [CEFUROXIME] Allergy Unknown Angioedema Verified 08/07/23 12:03 ciprofloxacin [From Cipro] Allergy Unknown Unknown Verified 08/07/23 12:03 clindamycin [CLINDAMYCIN] Allergy Unknown Anaphylaxis Verified 08/07/23 12:03 erythromycin base Allergy Unknown Diarrhea Verified 08/07/23 12:03 iron Allergy Unknown Unknown Verified 08/07/23 12:03 levofloxacin [From Levaquin] Allergy Unknown Unknown Verified 08/07/23 12:03 peanut [Peanut] Allergy Unknown Itching Verified 08/07/23 12:03 penicillin V Allergy Unknown ears and Verified 08/07/23 12:03 face swell,throat swell Sulfa (Sulfonamide Allergy Unknown ANAPHYLAXIS, Verified 08/07/23 12:03 Antibiotics) swelling [SULFA(SULFONAMIDE body,welts ANTIBIOTICS)] [id number] Reductase AdvReac Severe Muscle Pain Verified 08/07/23 12:03 Inhibitor cefazolin AdvReac Mild Anaphylaxis Verified 08/07/23 12:03 cheetos Allergy Unknown itchy, rash Uncoded 08/07/23 12:04 cranberry juice Allergy Unknown mouth Uncoded 08/07/23 12:04 itchy, bumps grape juice Allergy Unknown mouth Uncoded 08/07/23 12:04 itchy, bumps RAISIN Allergy Unknown Itching Uncoded 08/03/23 13:06 TURNIPS Allergy Unknown Unknown Uncoded 08/03/23 13:06 Review of Systems Review of Systems Constitutional : No Weight loss, No Fever, No Chills ENT/Mouth : No sore throat, No Rhinorrhea Eyes: No Swelling, No Redness Cardiovascular : No Chest Pain, No SOB, No Edema Respiratory : No Cough, No Sputum, No Wheezing Gastrointestinal : Positive Nausea, no Vomiting, no Diarrhea, positive abdominal Pain, No Hematochezia, No Melena Genitourinary : No Dysuria, No Urinary Frequency, No Hematuria, No Urgency Musculoskeletal : No joint pain, No Myalgias, No Joint Swelling Skin : No Skin Lesions, No rash Neuro : No Weakness, No Numbness, No Dizziness, No Headache Psych : No Anxiety/Panic, No Depression All other systems reviewed and are negative. [facility] Past Medical History Attestation statement: The following information was validated with the patient. Source: old records reviewed Medical History CAD (coronary artery disease) IBS (irritable bowel syndrome) Exocrine pancreatic insufficiency Lichen sclerosus Cough Bilateral knee pain Rectal prolapse Pre-op examination Small intestinal bacterial overgrowth Appendicitis Kidney stone Carpal tunnel syndrome Right shoulder injury Vertigo Chronic headaches Diverticulosis Fibromyalgia Depression Surgical History S/P triple vessel bypass History of endometrial ablation History of esophagogastroduodenoscopy (EGD) Hx of colonoscopy Hx of carpal tunnel repair (~07/2019) Hx of rotator cuff surgery Hx of shoulder surgery Hx of appendectomy Hx of cholecystectomy Family History Family History Father Myocardial infarction, Onset Age: 46 Mother Congestive heart failure Stomach problems Stomach ulcer Anxiety and depression Myocardial infarction, Onset Age: 50 Mental health disorder Sister Heart problem Myocardial infarction, Onset Age: 59 Sister Afib Brother Throat cancer Lung cancer Social History Social History Household Members: Family Housing: Apartment Alcohol intake: never Patient Tobacco Use Status: Former Tobacco user Quit Date: 2022 Tobacco use type: Cigarette Years Smoked: 30 +/- Smoked in Last 30 Days: No e-Cigarette/Vaping Use: Never Used Second Hand Smoke Exposure: No Use of substances other than those prescribed or required for medical reasons: No Advance Directives: Yes Advance Directives on File: Yes Advance Directives Date on File: 02/25/22 Patient : No service: No Current occupational status: disabled 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 Oriented X3. No acute distress. Eyes: Pupils equal, round and reactive to light. ENT: Pharynx normal. Neck: Normal inspection. Neck supple. CVS: Normal heart rate and rhythm. Pulses normal. Respiratory: No respiratory distress. Breath sounds normal. Abdomen: Soft and no distention but reports ttp in upper abdomen Skin: Skin warm and dry. Normal skin color. Normal skin turgor. Extremities: No lower extremity edema. No calf ttp Neuro: Oriented X 3. No motor deficit. No sensory deficit. 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 She is passing gas and having BM at this time labs, IV morphine for pain, CT scan for obstruction, pancreatitis. Differential Diagnosis Differential Diagnoses: The differential diagnosis associated with the presentation includes chronic pain, gastritis, pancreatitis, PUD Admission/Observation Consideration of admission/observation: Escalation of care including admission/observation considered negative workup and reassuring labs stable for DC Lab Data [facility] Lab Attestation statement: I reviewed the patient's lab results. 08/07/23 11:43 08/07/23 11:43 Labs: Lab Results 03/11/24 03/11/24 Range/Units 11:32 11:43 WBC 10.1 (4.8-10.8) X10*3/uL RBC 5.04 (4.20-5.50) X10*6/uL Hgb 12.7 (12.0-16.0) g/dl Hct 41.2 (37.0-47.0) % MCV 81.7 (80.0-98.0) fL MCH 25.2 L (27.0-33.0) pg MCHC 30.8 L (31.0-35.0) g/dl RDW 15.6 (11.0-16.0) % Plt Count 365 (160-400) X10*3/uL MPV 10.2 (9.4-12.3) fL Immature Gran % (Auto) 0.4 (0.0-0.4) % Neut % (Auto) 63.2 (45-73) % Lymph % (Auto) 23.9 (20-40) % [place] % (Auto) 8.2 (2-11) % Eos % (Auto) 3.8 (0-4) % Baso % (Auto) 0.5 (0-2) % Lymph # (Auto) 2.4 (1.2-4.9) X10*3/uL [place] # (Auto) 0.8 (0.1-1.2) X10*3/uL Eos # (Auto) 0.4 (0.0-0.4) X10*3/uL Baso # (Auto) 0.1 (0.0-0.2) X10*3/uL Abs Immat Gran (auto) 0.04 H (0.00-0.03) X10*3/uL Absolute Neuts (auto) 6.4 (2.0-8.3) x10*3/uL Absolute Nucleated RBC 0.000 (0.0-0.012) X10*3/uL Nucleated RBC % (auto) 0.0 (0.0-0.2) /100WBC Sodium 142 (135-145) mmol/L Potassium 5.2 H (3.3-5.1) mmol/L Chloride 106 (96-108) mmol/L Carbon Dioxide 30 H (22-29) mmol/L Anion Gap 11 L (12-20) BUN 23 H (9-16) mg/dL Creatinine 0.89 (0.5-1.4) mg/dL Estim Creat Clear Calc 72.4 Estimated GFR > 60 Random Glucose 102 (60-115) mg/dL Calcium 9.7 (8.4-10.2) mg/dL Magnesium 2.3 (1.6-2.6) mg/dL Total Bilirubin 0.3 (0.0-1.0) mg/dL Direct Bilirubin 0.2 (0.0-0.5) mg/dL AST 12 (5-31) U/L ALT 15 (0-31) U/L Alkaline Phosphatase 109 (39-117) U/L Troponin I High Sens < 2.7 (<3.5-17.0) ng/L Total Protein 7.2 (6.5-8.0) g/dL Albumin 3.8 (3.5-5.0) g/dL Lipase 14 (8-78) U/L Urine Color Yellow Urine Appearance Clear Urine pH 7.5 (5.0-9.0) Ur Specific [place] 1.020 (1.005-1.025) Urine Protein Negative (Neg-Trace) mg/dL Urine Glucose (UA) Negative (Negative) mg/dL Urine Ketones Negative (Negative) mg/dL Urine Blood Negative (Negative) Urine Nitrite Negative (Negative) Ur Leukocyte Esterase Negative (Negative) Independent Interpretation I performed an independent interpretation of an: EKG and CT Scan (no acute findings) Interpretation: Rate: 75 Rhythm: NSR [place]: normal Normal P waves. Normal SULEMAN. Normal QRS complex. ST T wave : normal no MAURI qTC: 422 prior studies: no acute ischemia The study has been interpreted contemporaneously by me. . Radiology Impression Discussion of test interpretation with radiology: I have reviewed the radiologist's reading. Independent Historian Clinical information obtained from an independent historian. History obtained from or confirmed by: EMS External Record Review External record reviewed: Inpatient record Prescription Management I considered prescription management with: Other Medications Administered Discontinued Medications Generic Name Dose Route Start Last Admin Trade Name Freq PRN Reason Stop Dose Admin Hydromorphone HCl 1 mg 08/07/23 13:16 08/07/23 13:34 Hydromorphone Hcl 1 Mg/Ml Syringe IVPUSH 08/07/23 13:17 1 mg ONCE ONE Administration Protocol Iohexol 100 ml 08/07/23 13:24 08/07/23 13:25 Iohexol 350 Mg/Ml 100 Ml Infus..Btl IV 08/07/23 13:25 85 ml ONCE ONE Administration Morphine Sulfate 4 mg 08/07/23 11:09 08/07/23 11:28 Morphine Sulfate 4 Mg/Ml Cartridge IVPUSH 08/07/23 11:10 4 mg ONCE ONE Administration Protocol Ondansetron HCl 4 mg 08/07/23 11:09 08/07/23 11:28 Ondansetron Hcl 4 Mg/2 Ml Vial IVPUSH 08/07/23 11:10 4 mg ONCE ONE Administration Critical Care Time Critical Care Time Critical Care Time: Yes Total Critical Care Time: 40 Attestation: review of records, repeat IV narcotics with improvement in pain I attest to this time spent taking care of the patient Discharge Plan Discharge Clinical Impression: Acute upper abdominal pain Patient Disposition: Home, Self-Care Instructions: Abdominal Pain (ED) Additional Instructions: your labs and CT scan are reassuring. I think the the biggest concern right now would be gastritis or possible ulcer in the stomach at this time given your aspirin use and history would start on stronger antacid medications. please call your primary care doctor. return for worsening pain, inability to eat or drink, black or bloody stools or any other concerns. Prescriptions: New omeprazole 20 mg capsule,delayed release(DR/EC) 20 mg PO BID Qty: 37 0RF Rx Instructions: take BID for 1 week then daily for one month No Action levalbuterol tartrate 45 mcg/actuation HFA aerosol inhaler 2 inh inhalation Q6H 30 Days Qty: 15 6RF cholecalciferol (vitamin D3) 50 mcg (2,000 unit) capsule 50 mcg PO DAILY Qty: 90 3RF loratadine 10 mg tablet 10 mg PO DAILY Qty: 90 1RF Praluent Pen 75 mg/mL pen injector 75 mg subcut Q14D Qty: 2 6RF linezolid 600 mg tablet 600 mg PO Q12H 7 Days Qty: 14 0RF levalbuterol tartrate [Xopenex HFA] 45 mcg/actuation HFA aerosol inhaler 2 inh inhalation Q6H 30 Days Qty: 15 2RF budesonide 32 mcg/actuation spray,non-aerosol 2 spray intranasal BID 30 Days Qty: 8.43 3RF Rx Instructions: administer into each nostril albuterol sulfate 2.5 mg /3 mL (0.083 %) solution for nebulization 2.5 mg inhalation Q6H PRN (Reason: shortness of breath or wheezing) 15 Days Qty: 180 3RF aspirin [Adult Aspirin Regimen] 81 mg tablet,delayed release (DR/EC) 81 mg PO DAILY 90 Days Qty: 90 3RF [id number]-[id number]-ET 3.5-10,000-1 mg/mL-unit/mL-% drops,suspension 4 drp otic (ear) left TID 10 Days Qty: 10 0RF omeprazole 20 mg capsule,delayed release(DR/EC) 20 mg PO DAILY 30 Days Qty: 30 1RF capsaicin [Arthritis Pain Relief(capsaic)] 0.1 % cream 1 appl topical TID Qty: 60 0RF Rx Instructions: do not wash area for at least 30 min after application
[2023-08-07 10:59] VITALS: BP 138/109; PULSE 91; O2SAT 96
--- NOTE | 2023-08-07 11:09 | ECG_ITS ---
Test Reason : upper abd pain Blood Pressure : / mmHG Vent. Rate : 075 BPM Atrial Rate : 075 BPM P-R Int : 166 ms QRS Dur : 078 ms QT Int : 378 ms P-R-T Axes : 055 035 069 degrees QTc Int : 422 ms Normal sinus rhythm Normal ECG When compared with ECG of 16-JUN-2023 10:17, No significant change was found Referred By: Hope Estevez Electronically Signed By:ASHLY VELASQUEZ MD
[2023-08-07 11:18] VITALS: PULSE 81; RESP 16; O2SAT 96; BMI 43.2
[2023-08-07] MEDS: ondansetron HCL 4 MG/2 ML VIAL IVPUSH (11:28)
[2023-08-07] MEDS: Morphine Sulfate 4 MG/ML CARTRIDGE IVPUSH (11:28)
[2023-08-07 11:52] LABS: Appearance Urine Clear; Color Urine Yellow; Glucose Urine UA Negative (Negative); Leukocyte Esterase Urine Negative (Negative); Nitrite Urine Negative (Negative); PH 7.5 (5.0-9.0); Urine Blood Negative (Negative); Urine Ketones Negative (Negative); Urine Protein Negative (Neg-Trace)
[2023-08-07 11:53] LABS: MANUAL DIFF FLAG NO
[2023-08-07 11:55] LABS: Basophils Absolute Auto 0.1 X10*3/uL (0.0-0.2); Basophils Percent Auto 0.5 % (0-2); Eosinophils Absolute Auto 0.4 X10*3/uL (0.0-0.4); Eosinophils Percent Auto 3.8 % (0-4); Hematocrit 41.2 % (37.0-47.0); Hemoglobin 12.7 g/dl (12.0-16.0); Imm Gran Abs Auto 0.04 X10*3/uL (0.00-0.03); Imm Gran Pct Auto 0.4 % (0.0-0.4); Lymphocytes Absolute Auto 2.4 X10*3/uL (1.2-4.9); Lymphocytes Percent Auto 23.9 % (20-40); Mean Corpuscular HGB Conc 30.8 g/dl (31.0-35.0); Mean Corpuscular Hemoglobin 25.2 pg (27.0-33.0); Mean Corpuscular Volume 81.7 fL (80.0-98.0); Mean Platelet Volume 10.2 fL (9.4-12.3); Monocytes Absolute Auto 0.8 X10*3/uL (0.1-1.2); Monocytes Percent Auto 8.2 % (2-11); Neutrophils Absolute Auto 6.4 x10*3/uL (2.0-8.3); Neutrophils Percent Auto 63.2 % (45-73); Platelet Count 365 X10*3/uL (160-400); Red Blood Count 5.04 X10*6/uL (4.20-5.50); Red Cell Distribution Width 15.6 % (11.0-16.0); White Blood Count 10.1 X10*3/uL (4.8-10.8)
[2023-08-07 12:14] LABS: Alanine Aminotransferase 15 U/L (0-31); Albumin Level 3.8 g/dL (3.5-5.0); Alkaline Phosphatase 109 U/L (39-117); Anion Gap 11 (12-20); Aspartate Amino Transferase 12 U/L (5-31); Bilirubin Direct 0.2 mg/dL (0.0-0.5); Bilirubin Total 0.3 mg/dL (0.0-1.0); Blood Urea Nitrogen 23 mg/dL (9-16); Calcium 9.7 mg/dL (8.4-10.2); Carbon Dioxide 30 mmol/L (22-29); Chloride 106 mmol/L (96-108); Creatinine Clr Calc Pharmacy 72.4; Estimated Glomerular Filt Rate > 60; Glucose Random 102 mg/dL (60-115); Lipase 14 U/L (8-78); Magnesium 2.3 mg/dL (1.6-2.6); Potassium 5.2 mmol/L (3.3-5.1); Sodium 142 mmol/L (135-145); Total Protein 7.2 g/dL (6.5-8.0)
[2023-08-07 12:30] LABS: Troponin-I High Sensitivity < 2.7 ng/L (<3.5-17.0)
[2023-08-07] MEDS: iohexoL 350 MG/ML 100 ML INFUS..BTL IV (13:25)
[2023-08-07 13:33] VITALS: BP 114/64; PULSE 70; RESP 16; O2SAT 98
[2023-08-07] MEDS: HYDROmorphone HCl 1 MG/ML SYRINGE IVPUSH (13:34)
--- NOTE | 2023-08-07 13:47 | PC.NURSE ---
Patient admitted with PMH gastritis, IBS, triple bypass September 2022, c/o abd pain x 4 days, +flatus, +BM this am, denies N/V, abd S/NT, pain concentrated L upper side non radiating. Medicated for pain x 2 minimal effectiveness.
[2023-08-07 15:00] VITALS: BP 110/63; PULSE 69; RESP 16
[2023-08-07] MEDS: Ondansetron ODT 4 MG TAB.RAPDIS TRANSLINGU (15:55)
== END 2023-08-07 15:58 | disposition home or self-care (01) ==
PROVIDERS: Emergency Provider Emergency Medicine; PCP Physician Assistant
DX: R10.10 Upper abdominal pain, unspecified (principal); Z95.1 Presence of aortocoronary bypass graft; Z90.49 Acquired absence of other specified parts of digestive tract
CPT/HCPCS: 36415; 74177; 80048; 80076; 81003; 83690; 83735; 84484; 85025; 93005; 96374; 96375; 99284; J1170; J2270; J2405; Q9967

== ENCOUNTER → 2023-08-07 11:09 | Outpatient (BNV) | payer MEDICARE, MEDICAID, SELFPAY | PROVIDERS: Emergency Provider Emergency Medicine; PCP Physician Assistant; Visit Provider Internal Medicine Cardiovascular Disease | DX: R10.10 Upper abdominal pain, unspecified (principal) | CPT/HCPCS: 93010 ==

== ENCOUNTER 2023-08-18 13:13 | Outpatient (REF) | payer MEDICARE, MEDICAID, SELFPAY ==
--- NOTE | ~2023-08-18 | CT_ITS ---
EXAMINATION: CT CHEST WITHOUT CONTRAST CLINICAL INFORMATION: Disruption of internal operation surgical wound. COMPARISON: 02/14/2023. TECHNIQUE: Multidetector volumetric CT imaging of the chest was done. Axial MIP volume rendering provided. Sagittal and coronal reformatted images were obtained. This CT examination was performed using dose optimization techniques as appropriate, variously including the following: *Automated exposure control *Adjustment of mA and/or kV according to patient size (this includes techniques or standardized protocols for targeted exams where dose is matched to indication/reason for exam; i.e. extremities or head) *Use of iterative reconstruction technique DLP: 269 mGy-cm FINDINGS: The thoracic inlet is felt to be comparable to previous. The axillary regions are unremarkable. Partially imaged upper abdominal structures grossly comparable to previous on this noncontrast study. Centrally moderate coronary calcium. There is no bulky central adenopathy. There has been a median sternotomy. Region is comparable to previous. The retrosternal area is comparable. No suspicion for a collection. The anterior tissue is also comparable. No suspicious increasing soft tissue change anterior to the sternotomy wires. The hilar regions are comparable to previous on this noncontrast study. Imaging of the lung almanza. RIGHT LUNG: No infiltrate or effusion. Some evidence of probable COPD. LEFT LUNG: No infiltrate or effusion. Comparable to previous. Review of the bone windows does not demonstrate suspicion for a bony lesion. CT/CT chest wo IV con IMPRESSION: Exam is felt to be comparable to previous. No suspicious finding. Particular attention around the sternal wires. No suspicious fluid collection. Some soft tissue change here is comparable to previous exam. Other findings are as described above. IMPRESSION: Unremarkable examination. Fleischner guidelines were followed.
--- NOTE | ~2023-08-18 | CT_ITS ---
EXAMINATION: CT SINUS WITHOUT CONTRAST CLINICAL INFORMATION: Chronic sinusitis, headache COMPARISON: CT scan of paranasal sinuses on 11/25/2021 TECHNIQUE: Multiple 2.0 mm axial images of the paranasal sinuses were obtained without IV contrast enhancement. Bone window and soft tissue window images were reconstructed. Multiple 2.0 mm coronal and sagittal images of the paranasal sinuses were reconstructed from the axial image data. This CT examination was performed using dose optimization techniques as appropriate, variously including the following: *Automated exposure control *Adjustment of mA and/or kV according to patient size (this includes techniques or standardized protocols for targeted exams where dose is matched to indication/reason for exam; i.e. extremities or head) *Use of iterative reconstruction technique DLP: 361 mGy-cm FINDINGS: Sphenoid sinuses: Bilateral sphenoid sinuses are clear with intact bony septations. Ethmoid sinuses: Bilateral ethmoid sinuses are clear with intact bony septations. Maxillary sinuses: Bilateral maxillary sinuses are clear with intact bony bailey. Bilateral osteomeatal complexes are patent. Conchae bullosa of bilateral middle turbinates is seen. There are no Chemo's cells, no abnormal expansion of the ethmoidal bullae, or paradoxical curvature of the middle turbinates seen. Nasal septum is midline. Frontal sinuses: Bilateral frontal sinuses are clear with intact bony septations. Bilateral frontonasal recesses are patent. Right frontal sinus is markedly hypoplastic. CT/CT sinus wo IV con IMPRESSION: 1. Normal CT scan of the paranasal sinuses. Interval resolution of left maxillary sinusitis. 2. Patent bilateral osteomeatal complexes. 3. Unchanged bilateral middle turbinate conchae bullosa.
== END 2023-08-18 13:14 | disposition home or self-care (01) ==
LOC: HO.CT 13:13
PROVIDERS: PCP Physician Assistant; Visit Provider Physician Assistant
DX: R51.9 Headache, unspecified (principal); H93.19 Tinnitus, unspecified ear; J32.9 Chronic sinusitis, unspecified; T81.32XA Disruption of internal operation (surgical) wound, not elsewhere classified, initial encounter; Z95.1 Presence of aortocoronary bypass graft
CPT/HCPCS: 70486; 71250

== ENCOUNTER 2023-09-13 09:57 | Outpatient (AMB) | payer MEDICARE, MEDICAID, SELFPAY ==
--- NOTE | 2023-09-13 10:00 | A.OFFVIS_ITS ---
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 Present (Mikayla) Allergies calcium [Calcium] Allergy (Severe, Verified 09/13/23 10:02) HIVES doxycycline [Doxycycline] Allergy (Severe, Verified 09/13/23 10:02) FACIAL SWELLING,almost killed pt,inhouse for weakness,,incontinence?seizures Penicillins Allergy (Severe, Verified 09/13/23 10:02) Facial Swelling lactose Allergy (Mild, Verified 09/13/23 10:02) Unknown amoxicillin Allergy (Unknown, Verified 09/13/23 10:02) Throat swelling azithromycin [AZITHROMYCIN] Allergy (Unknown, Verified 09/13/23 10:02) Bloody Diarrhea cefuroxime [CEFUROXIME] Allergy (Unknown, Verified 09/13/23 10:02) Angioedema ciprofloxacin [From Cipro] Allergy (Unknown, Verified 09/13/23 10:02) Unknown clindamycin [CLINDAMYCIN] Allergy (Unknown, Verified 09/13/23 10:02) Anaphylaxis erythromycin base Allergy (Unknown, Verified 09/13/23 10:02) Diarrhea iron Allergy (Unknown, Verified 09/13/23 10:02) Unknown levofloxacin [From Levaquin] Allergy (Unknown, Verified 09/13/23 10:02) Unknown peanut [Peanut] Allergy (Unknown, Verified 09/13/23 10:02) Itching penicillin V Allergy (Unknown, Verified 09/13/23 10:02) ears and face swell,throat swell Sulfa (Sulfonamide Antibiotics) [SULFA(SULFONAMIDE ANTIBIOTICS)] Allergy (Unknown, Verified 09/13/23 10:02) ANAPHYLAXIS, swelling body,welts Vcqfuah-BQX-KsS Reductase Inhibitor Adverse Reaction (Severe, Verified 09/13/23 10:02) Muscle Pain aspirin Adverse Reaction (Intermediate, Verified 09/13/23 10:02) Stomach Upset cefazolin Adverse Reaction (Mild, Verified 09/13/23 10:02) Anaphylaxis cheetos Allergy (Unknown, Uncoded 08/07/23 12:04) itchy, rash cranberry juice Allergy (Unknown, Uncoded 08/07/23 12:04) mouth itchy, bumps grape juice Allergy (Unknown, Uncoded 08/07/23 12:04) mouth itchy, bumps RAISIN Allergy (Unknown, Uncoded 08/03/23 13:06) Itching TURNIPS Allergy (Unknown, Uncoded 08/03/23 13:06) Unknown Plavix/clopidogrel Adverse Reaction (Intermediate, Uncoded 08/15/23 17:21) Fatigued, dizziness, lightheadedness HPI HPI Comments History of Present Illness Details She is a postmenopausal woman 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 She is doing well with concerns: pain on her lower right pelvis at times, odor and discharge, prone BV. Currently sexually active on occasion. Last pap smear; 2022. Last mammogram; 2021. She reports sternum pain, unable to have mammogram due to the postop pain. Denies any family history of breast, ovarian or colon cancer. [facility] Medical History CAD (coronary artery disease) IBS (irritable bowel syndrome) Exocrine pancreatic insufficiency Lichen sclerosus Cough Bilateral knee pain Rectal prolapse Pre-op examination Small intestinal bacterial overgrowth Appendicitis Kidney stone Carpal tunnel syndrome Right shoulder injury Vertigo Chronic headaches Diverticulosis Fibromyalgia Depression Surgical History (Updated 09/13/23 @ 10:56 by Leora Car CNM) H/O uterosacral colpopexy H/O breast surgery S/P triple vessel bypass History of endometrial ablation History of esophagogastroduodenoscopy (EGD) Hx of colonoscopy Hx of carpal tunnel repair (~07/2019) Hx of rotator cuff surgery Hx of shoulder surgery Hx of appendectomy Hx of cholecystectomy Family History Father Myocardial infarction, Onset Age: 46 Mother Congestive heart failure Stomach problems Stomach ulcer Anxiety and depression Myocardial infarction, Onset Age: 50 Mental health disorder Sister Heart problem Myocardial infarction, Onset Age: 59 Sister Afib Brother Throat cancer Lung cancer Social History Household Members: Family Housing: Apartment Alcohol intake: never Patient Tobacco Use Status: Former Tobacco user Quit Date: 2022 Tobacco use type: Cigarette Years Smoked: 30 +/- e-Cigarette/Vaping Use: Never Used Second Hand Smoke Exposure: No Advance Directives Date on File: 02/25/22 service: No Current occupational status: disabled 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 Cognitive needs: No Hearing needs: No Vision needs: Yes (Glasses) Female Reproductive History Menstrual Age of Menarche: 15 Total pregnancies: 5 Full term: 5 Number of Living Children: 5 Date of last pap smear: 09/06/22 (neg pap and hpv) History of abnormal pap smear: Yes (09/12 ascus) Date of Mammogram: 02/14/22 (Birad 1) Review of Systems Const All systems reviewed & are unremarkable except as noted in HPI and below Reports as per HPI Eyes Reports no additional complaints ENT Reports no additional complaints Card Reports no additional complaints Resp Reports no additional complaints GI Reports as per HPI and Reports no additional complaints Reports as per HPI Musc Reports no additional complaints Skin/Breast Reports as per HPI Neuro Reports no additional complaints Psych Reports no additional complaints Endo Reports no additional complaints Elpidio/Lymph Reports no additional complaints Aller/Immun Reports no additional complaints Physical Exam Vital Signs: Last Vital Signs BP 106/66 09/13/23 10:02 Const General: cooperative, healthy appearing, no acute distress, well developed and alert Orientation/consciousness: patient oriented x3 HEENT Head: Yes normal to inspection Eyes General: appearance normal, both eyes and all related structures Neck Neck: Yes normal visual inspection Thyroid: Thyroid normal Chest Other: Sternum scar Chest palpation & inspection: normal inspection of the chest and other (no puckering, dimpling, peau de orange, retraction, discharge, masses) Breast/axilla inspection: normal inspection of the breasts Breast/axilla palpation: normal palpation of the breasts Resp Effort & Inspection: normal respiratory effort GI Other: anterior abd. tenderness lower right pelvis Inspection: Yes normal to inspection and Yes obesity Palpation (GI): Soft to palpation Rectal Exam - Female: deferred Other: Roxi clitoral upper labial hypopigmentation small excoriation(patient admits to scratching) General: Yes bladder normal to palpation External Female Exam: normal external appearance and normal appearance of the urethra Speculum Exam - Vagina: normal appearance of the vagina, normal palpation, normal vaginal discharge and vagina atrophic Speculum Exam - Cervix: normal appearance of the cervix and normal palpation Bimanual exam- vagina & uterus: normal bimanual exam, normal palpation, uterine size normal, bladder normal to palpation, normal palpation and non-tender Bimanual Exam- Adnexa, other: no masses Skin General skin exam: no rashes or lesions noted Rashes: no rashes Neuro General: patient oriented x3 Cognition (Neuro): normal cognition Extrem General: Yes normal to inspection Psych Attitude: cooperative Thought process: Normal thought process present Assessment & Plan Assessment & Plan (1) Encounter for well woman exam with routine gynecological exam: Code(s): Z01.419 - Encounter for gynecological examination (general) (routine) without abnormal findings Plan Discussed: Current recommendations for pap smears per ASCCP guidelines. Breast awareness, periodic self breast exams and yearly mammogram. Maintain a healthy lifestyle, well balanced diet. Workup for pelvic pain to include ultrasounds, BV panel and GC and chlamydia cultures obtained. Reviewed treatment for her lichen sclerosus diagnosed by biopsy several years ago. Use of topical steroid, reviewed titration, plan follow-up skin check at her next visit with the ultrasound review. Importance of treating lichen sclerosus, prevention of vulvar cancer. Contact the office with any postmenopausal bleeding. Patient verbalizes understanding and agrees to the plan of care. She was given opportunity to ask questions and all questions were answered to the best of my ability. RTO in 1 year for annual business asst exam. This note is constructed using voice recognition software. While every effort has been made to ensure accuracy, liability claims manager errors may have been included. Orders: Orders US pelvic and transvaginal Today R10.2 - Pelvic and perineal pain CT NG by PCR Today N89.8 - Other specified noninflammatory disorders of vagina Bacterial Vaginosis Panel Today N89.8 - Other specified noninflammatory disorders of vagina Medications: New betamethasone, augmented 0.05 % apply a thin a coat to area nightly for two weeks, then every other night for two weeks, then twice a week 1 appl topical DAILY 45 grams 1RF 8 weeks Coding Level of Care Code Est Pt Prev Care 40-64y(78572) Diagnoses Encounter for well woman exam with routine gynecological exam Z01.419
[2023-09-13 10:02] VITALS: BP 106/66
== END 2023-09-13 10:47 | disposition home or self-care (01) ==
PROVIDERS: Visit Provider Advanced Practice Midwife
DX: N89.8 Other specified noninflammatory disorders of vagina (principal); R10.2 Pelvic and perineal pain
CPT/HCPCS: 99214

== ENCOUNTER 2023-09-13 09:57 | Outpatient (REF) | payer MEDICARE, MEDICAID, SELFPAY | END 2023-09-13 09:58 | disposition home or self-care (01) | LOC: HO.LNP 09:57 | PROVIDERS: Visit Provider Advanced Practice Midwife | DX: Z13.89 Encounter for screening for other disorder (principal) | CPT/HCPCS: 99212 ==

== ENCOUNTER 2023-09-13 10:38 | Outpatient (REF) | payer MEDICARE, MEDICAID, SELFPAY ==
[2023-09-13 18:02] LABS: CT PCR NOT DETECTED (Not Detect.); NG PCR NOT DETECTED (Not Detect.)
[2023-09-14 12:40] LABS: BV Int Neg Control Negative (Negative); BV Int Pos Control Positive (Positive)
== END 2023-09-13 10:39 | disposition home or self-care (01) ==
LOC: HO.LAB 10:38
PROVIDERS: Visit Provider Advanced Practice Midwife
DX: N89.8 Other specified noninflammatory disorders of vagina (principal); Z01.419 Encounter for gynecological examination (general) (routine) without abnormal findings
CPT/HCPCS: 0353U; 87480; 87510; 87660; 99212

== ENCOUNTER 2023-09-22 11:03 | Outpatient (REF) | payer MEDICARE, MEDICAID, SELFPAY ==
--- NOTE | ~2023-09-22 | US_ITS ---
EXAMINATION: US PELVIS CLINICAL INFORMATION: Pelvic pain, postmenopausal, endometrial ablation. COMPARISON: CT abdomen and pelvis August 07, 2023. TECHNIQUE: Ultrasound of the pelvis is performed using both transabdominal and transvaginal transducers along with Doppler. Transvaginal imaging is performed due to inadequate visualization transabdominally. FINDINGS: The uterus is anteverted and measures 6.3 x 2.4 x 4.1 cm. Endometrial thickness 3 mm. Trace amount of fluid within the endometrial cavity. Limited visualization due to bowel gas and body habitus. Echogenic foci within the lower uterine segment of the uterus characteristic of calcifications. No significant free fluid. Bilateral ovaries were not visualized. US/US pelvic and transvaginal IMPRESSION: 1. Endometrial thickness 3 mm. Trace amount of fluid within the endometrial cavity. 2. Echogenic foci within the lower uterine segment of the uterus characteristic of calcifications. 3. Bilateral ovaries were not visualized. 4. Severely limited visualization due to bowel gas and also due to body habitus.
== END 2023-09-22 11:04 | disposition home or self-care (01) ==
LOC: HO.US 11:03
PROVIDERS: PCP Physician Assistant; Visit Provider Advanced Practice Midwife
DX: R10.2 Pelvic and perineal pain (principal)
CPT/HCPCS: 76830; 76856

== ENCOUNTER 2023-09-26 14:43 | Outpatient (AMB) | payer MEDICARE, MEDICAID, SELFPAY ==
--- NOTE | 2023-09-26 14:16 | MHC.PC.OV ---
Intake Visit Reasons: pe Allergies calcium [Calcium] Allergy (Severe, Verified 09/13/23 10:02) HIVES doxycycline [Doxycycline] Allergy (Severe, Verified 09/13/23 10:02) FACIAL SWELLING,almost killed pt,inhouse for weakness,,incontinence?seizures Penicillins Allergy (Severe, Verified 09/13/23 10:02) Facial Swelling lactose Allergy (Mild, Verified 09/13/23 10:02) Unknown amoxicillin Allergy (Unknown, Verified 09/13/23 10:02) Throat swelling azithromycin [AZITHROMYCIN] Allergy (Unknown, Verified 09/13/23 10:02) Bloody Diarrhea cefuroxime [CEFUROXIME] Allergy (Unknown, Verified 09/13/23 10:02) Angioedema ciprofloxacin [From Cipro] Allergy (Unknown, Verified 09/13/23 10:02) Unknown clindamycin [CLINDAMYCIN] Allergy (Unknown, Verified 09/13/23 10:02) Anaphylaxis erythromycin base Allergy (Unknown, Verified 09/13/23 10:02) Diarrhea iron Allergy (Unknown, Verified 09/13/23 10:02) Unknown levofloxacin [From Levaquin] Allergy (Unknown, Verified 09/13/23 10:02) Unknown peanut [Peanut] Allergy (Unknown, Verified 09/13/23 10:02) Itching penicillin V Allergy (Unknown, Verified 09/13/23 10:02) ears and face swell,throat swell Sulfa (Sulfonamide Antibiotics) [SULFA(SULFONAMIDE ANTIBIOTICS)] Allergy (Unknown, Verified 09/13/23 10:02) ANAPHYLAXIS, swelling body,welts Mstgryz-EDA-FeU Reductase Inhibitor Adverse Reaction (Severe, Verified 09/13/23 10:02) Muscle Pain aspirin Adverse Reaction (Intermediate, Verified 09/13/23 10:02) Stomach Upset cefazolin Adverse Reaction (Mild, Verified 09/13/23 10:02) Anaphylaxis cheetos Allergy (Unknown, Uncoded 08/07/23 12:04) itchy, rash cranberry juice Allergy (Unknown, Uncoded 08/07/23 12:04) mouth itchy, bumps grape juice Allergy (Unknown, Uncoded 08/07/23 12:04) mouth itchy, bumps RAISIN Allergy (Unknown, Uncoded 08/03/23 13:06) Itching TURNIPS Allergy (Unknown, Uncoded 08/03/23 13:06) Unknown Plavix/clopidogrel Adverse Reaction (Intermediate, Uncoded 08/15/23 17:21) Fatigued, dizziness, lightheadedness Tobacco use date assessed: 06/22/23 Dental Screening Dental Screen Date: 08/03/23 [facility] Medical History CAD (coronary artery disease) IBS (irritable bowel syndrome) Exocrine pancreatic insufficiency Lichen sclerosus Cough Bilateral knee pain Rectal prolapse Pre-op examination Small intestinal bacterial overgrowth Appendicitis Kidney stone Carpal tunnel syndrome Right shoulder injury Vertigo Chronic headaches Diverticulosis Fibromyalgia Depression Surgical History H/O uterosacral colpopexy H/O breast surgery S/P triple vessel bypass History of endometrial ablation History of esophagogastroduodenoscopy (EGD) Hx of colonoscopy Hx of carpal tunnel repair (~07/2019) Hx of rotator cuff surgery Hx of shoulder surgery Hx of appendectomy Hx of cholecystectomy Family History Father Myocardial infarction, Onset Age: 46 Mother Congestive heart failure Stomach problems Stomach ulcer Anxiety and depression Myocardial infarction, Onset Age: 50 Mental health disorder Sister Heart problem Myocardial infarction, Onset Age: 59 Sister Afib Brother Throat cancer Lung cancer Social History Household Members: Family Housing: Apartment Alcohol intake: never Patient Tobacco Use Status: Former Tobacco user Quit Date: 2022 Tobacco use type: Cigarette Years Smoked: 30 +/- e-Cigarette/Vaping Use: Never Used Second Hand Smoke Exposure: No Advance Directives Date on File: 02/25/22 service: No Current occupational status: disabled 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 Jeronimo Najera, Lyly Triplett, Kike Nuñez and colleagues, with an educational melo from [employer]. Physical exam (Primary Care) Tobacco/Smoking Status: Tobacco use Status Tobacco use date assessed 06/22/23 09/26/23 14:16 Patient Tobacco Use Status Former Tobacco user 09/26/23 14:16 Tobacco use type Cigarette 09/26/23 14:16 e-Cigarette/Vaping Use Never Used 09/26/23 14:16 Thrive Assessment: Date of Thrive Assessment Date Thrive assessed 06/22/23 09/26/23 14:16 Telehealth Telehealth Telehealth Platform: Telephone Location of provider rendering services: practice address Location of patient: address on file Patient Identification confirmed using: Name, : Yes Telehealth method: video Patient verbally consented to treatment: Yes Patient verbally consented to billing insurance company: Yes Patient informed of any privacy concerns related to visit: Yes Coding
--- NOTE | 2023-09-26 14:44 | A.OFFPC_ITS ---
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: No Information Interpreted: non-clinical & clinical Pediatric Psychiatrist: Not Required per policy Accompanied by: Self / Same As Patient Allergies calcium [Calcium] Allergy (Severe, Verified 09/26/23 15:06) HIVES doxycycline [Doxycycline] Allergy (Severe, Verified 09/26/23 15:06) FACIAL SWELLING,almost killed pt,inhouse for weakness,,incontinence?seizures Penicillins Allergy (Severe, Verified 09/26/23 15:06) Facial Swelling lactose Allergy (Mild, Verified 09/26/23 15:06) Unknown amoxicillin Allergy (Unknown, Verified 09/26/23 15:06) Throat swelling azithromycin [AZITHROMYCIN] Allergy (Unknown, Verified 09/26/23 15:06) Bloody Diarrhea cefuroxime [CEFUROXIME] Allergy (Unknown, Verified 09/26/23 15:06) Angioedema ciprofloxacin [From Cipro] Allergy (Unknown, Verified 09/26/23 15:06) Unknown clindamycin [CLINDAMYCIN] Allergy (Unknown, Verified 09/26/23 15:06) Anaphylaxis erythromycin base Allergy (Unknown, Verified 09/26/23 15:06) Diarrhea iron Allergy (Unknown, Verified 09/26/23 15:06) Unknown levofloxacin [From Levaquin] Allergy (Unknown, Verified 09/26/23 15:06) Unknown peanut [Peanut] Allergy (Unknown, Verified 09/26/23 15:06) Itching penicillin V Allergy (Unknown, Verified 09/26/23 15:06) ears and face swell,throat swell Sulfa (Sulfonamide Antibiotics) [SULFA(SULFONAMIDE ANTIBIOTICS)] Allergy (Unknown, Verified 09/26/23 15:06) ANAPHYLAXIS, swelling body,welts Ggfajvp-ZDB-XfA Reductase Inhibitor Adverse Reaction (Severe, Verified 09/26/23 15:06) Muscle Pain aspirin Adverse Reaction (Intermediate, Verified 09/26/23 15:06) Stomach Upset cefazolin Adverse Reaction (Mild, Verified 09/26/23 15:06) Anaphylaxis cheetos Allergy (Unknown, Uncoded 09/26/23 14:45) itchy, rash cranberry juice Allergy (Unknown, Uncoded 09/26/23 14:45) mouth itchy, bumps grape juice Allergy (Unknown, Uncoded 09/26/23 14:45) mouth itchy, bumps RAISIN Allergy (Unknown, Uncoded 09/26/23 14:45) Itching TURNIPS Allergy (Unknown, Uncoded 09/26/23 14:45) Unknown Plavix/clopidogrel Adverse Reaction (Intermediate, Uncoded 09/26/23 14:45) Fatigued, dizziness, lightheadedness Medication List - Last Reconciled 09/26/23 by Angelo Tejada PA-C albuterol sulfate 2.5 mg (3 mL) inhalation Q6H PRN 15 days alirocumab (Praluent Pen) 75 mg subcut Q14D aspirin (Enteric Coated Aspirin) 81 mg PO DAILY betamethasone, augmented 0.05 % 1 appl topical DAILY 8 weeks budesonide 32 mcg/actuation 2 sprays intranasal BID 30 days capsaicin 0.1% (Arthritis Pain Relief (capsaicin)) 1 appl topical TID cholecalciferol (vitamin D3) 50 mcg PO DAILY levalbuterol tartrate 45 mcg/actuation 2 inhalations inhalation Q6H 30 days linezolid 600 mg PO Q12H 7 days loratadine 10 mg PO DAILY miscellaneous medical supply 1 ea miscellaneous .nightly 99 days dprxlmyq-dpzeplypr-HM 3.5-10,000-1 mg/mL-unit/mL-% 4 drps otic (ear) left TID 10 days omeprazole 20 mg PO BID omeprazole 20 mg PO DAILY 30 days Xopenex HFA 45 mcg/actuation (levalbuterol tartrate) 2 inhalations inhalation Q6H 30 days NS Tobacco use date assessed: 06/22/23 Dental Screening Dental Screen Date: 08/03/23 HPI Routine F/U HPI Details Patient is a 58-year-old female being evaluated today via telephone for problem visit. Patient has a past medical history significant for coronary artery disease status post coronary artery bypass, former, asthma. Continues to have abdominal bloating even with the use of PPI therapy and omos-cez-ueqvnge Maalox. Her abdominal bloating has gotten to the point 2 as she has not left her house thus may telehealth appointment to see PCP today. She does report having small intestine bacterial overgrowth. She reports being tested for this by a GI specialist and reports she was positive. Unclear if she is ever gotten treatment. PLAN: Will try rifaximin for the abdominal bloating. Also of note recent pelvic ultrasound shows a 3 mm thickened endometrium. She denies any bleeding. She does have a history of a D&C. 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 [facility] Medical History CAD (coronary artery disease) IBS (irritable bowel syndrome) Exocrine pancreatic insufficiency Lichen sclerosus Cough Bilateral knee pain Rectal prolapse Pre-op examination Small intestinal bacterial overgrowth Appendicitis Kidney stone Carpal tunnel syndrome Right shoulder injury Vertigo Chronic headaches Diverticulosis Fibromyalgia Depression Surgical History H/O uterosacral colpopexy H/O breast surgery S/P triple vessel bypass History of endometrial ablation History of esophagogastroduodenoscopy (EGD) Hx of colonoscopy Hx of carpal tunnel repair (~07/2019) Hx of rotator cuff surgery Hx of shoulder surgery Hx of appendectomy Hx of cholecystectomy Family History Father Myocardial infarction, Onset Age: 46 Mother Congestive heart failure Stomach problems Stomach ulcer Anxiety and depression Myocardial infarction, Onset Age: 50 Mental health disorder Sister Heart problem Myocardial infarction, Onset Age: 59 Sister Afib Brother Throat cancer Lung cancer Social History Household Members: Family Housing: Apartment Alcohol intake: never Patient Tobacco Use Status: Former Tobacco user Quit Date: 2022 Tobacco use type: Cigarette Years Smoked: 30 +/- e-Cigarette/Vaping Use: Never Used Second Hand Smoke Exposure: No Advance Directives Date on File: 02/25/22 service: No Current occupational status: disabled 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 Jeronimo Najera, Lyly Triplett, Kike Nuñez and colleagues, with an educational melo from [employer]. Review of Systems Const Denies headache(s) Eyes Denies loss of vision ENT Denies vertigo, Denies dizziness, Denies headache(s) and Denies sore throat Card Denies chest pain, Denies leg edema and Denies lightheadedness Resp Denies cough, Denies hemoptysis and Denies wheezing GI Reports abdominal pain, Denies melena, Reports bloating, Denies constipation, Denies diarrhea and Denies vomiting Denies urinary frequency, Denies dysuria and Denies urinary urgency Musc Denies arthralgias, Denies joint swelling, Denies numbness and Denies tingling Neuro Denies behavioral changes, Denies vertigo, Denies dizziness, Denies headache(s), Denies loss of vision, Denies memory loss, Denies numbness and Denies tingling Psych Denies anxiety, Denies behavioral changes, Denies depression, Denies memory loss and Denies panic attacks Elpidio/Lymph Denies easy bleeding and Denies easy bruising Aller/Immun Denies wheezing Physical exam (Primary Care) Tobacco/Smoking Status: Tobacco use Status Tobacco use date assessed 06/22/23 09/26/23 14:45 Patient Tobacco Use Status Former Tobacco user 09/26/23 14:45 Tobacco use type Cigarette 09/26/23 14:45 e-Cigarette/Vaping Use Never Used 09/26/23 14:45 Thrive Assessment: Date of Thrive Assessment Date Thrive assessed 06/22/23 09/26/23 14:45 Telehealth Telehealth Telehealth Platform: Telephone Location of provider rendering services: practice address Location of patient: address on file Patient Identification confirmed using: Name, : Yes Telehealth method: voice only Patient verbally consented to treatment: Yes Patient verbally consented to billing insurance company: Yes Patient informed of any privacy concerns related to visit: Yes Minutes spent on Phone/Video with Pt.: 11 Assessment and Plan Assessment & Plan (1) Small intestinal bacterial overgrowth (SIBO): Code(s): K63.8219 - Small intestinal bacterial overgrowth, unspecified Plan: Patient reporting signs and symptoms bloating and epigastric pain and discomfort. She has tried PPI and Maalox without much relief.. Reports per patient was tested for small intestinal bacterial overgrowth and was positive. Will trial rifaximin to help with the abdominal bloating. (2) Endometrial thickening on ultrasound: Code(s): R93.89 - Abnormal findings on diagnostic imaging of other specified body structures Plan: As per HPI will follow up with water superintendent on ultrasound findings. Medications: New rifaximin 550 mg PO TID 14 days 42 tabs 0RF K63.8219 - Small intestinal bact erial overgrowth, unspecified Refilled budesonide 32 mcg/actuation administer into each nostril 2 sprays intranasal BID 30 days 8.43 mL 3RF J 01.10 - Acute frontal sinusitis, unspecified Discontinued omeprazole take BID for 1 week then daily for one month Discontinued Reason: Doctor's Order 20 mg PO BID 37 caps 0RF Coding Level of Care Code Tele Est Pt Level 4 (69375) Diagnoses Small intestinal bacterial overgrowth (SIBO) K63.8219 Endometrial thickening on ultrasound R93.89
== END 2023-09-26 16:22 | disposition home or self-care (01) ==
LOC: HO.HMGH 14:43
PROVIDERS: PCP Physician Assistant; Visit Provider Physician Assistant
DX: K63.8219 Small intestinal bacterial overgrowth, unspecified (principal); R93.89 Abnormal findings on diagnostic imaging of other specified body structures
CPT/HCPCS: 99441

== ENCOUNTER 2023-10-03 07:28 | Outpatient (REF) | payer MEDICARE, MEDICAID, SELFPAY ==
--- NOTE | ~2023-10-03 | CT_ITS ---
EXAMINATION: CT INNER EAR TEMPORAL BONES CLINICAL INFORMATION: Right-sided tinnitus. Bilateral air congestion. COMPARISON: CT sinuses from 08/18/2023. TECHNIQUE: Multidetector helical imaging was performed in the axial plane with generation of oblique axial and coronal reformatted projections. This CT examination was performed using dose optimization techniques as appropriate, variously including the following: *Automated exposure control. *Adjustment of mA and/or kV according to patient size (this includes techniques or standardized protocols for targeted exams where dose is matched to indication/reason for exam; i.e. extremities or head). *Use of iterative reconstruction technique. DLP: 132 mGy-cm FINDINGS: Right Temporal Bone: The external auditory canal is normal in appearance. The tympanic membrane is normal. The ossicular chain is intact. No soft tissue abnormality within the middle ear. The mastoid antrum and additional mastoid air cells remain well aerated. The sigmoid plate is intact. Normal ossification of the bony labyrinth. Normal appearance of the cochlea, vestibule, and semicircular canals. The vestibular aqueduct is normal. Normal appearance of the labyrinthine, geniculate, tympanic, and mastoid segments of the facial nerve. Normal appearance of the internal auditory canal. The cochlear aperture is normal. Normal appearance of the carotid canal and jugular foramen. Left Temporal Bone: The external auditory canal is normal in appearance. The tympanic membrane is normal. The ossicular chain is intact. No soft tissue abnormality within the middle ear. The mastoid antrum and additional mastoid air cells remain well aerated. The sigmoid plate is intact. Normal ossification of the bony labyrinth. Normal appearance of the cochlea, vestibule, and semicircular canals. The vestibular aqueduct is normal. Normal appearance of the labyrinthine, geniculate, tympanic, and mastoid segments of the facial nerve. Normal appearance of the internal auditory canal. The cochlear aperture is normal. Normal appearance of the carotid canal and jugular foramen. Other: The temporomandibular joints are normal in appearance bilaterally. No demonstrated intracranial abnormalities of the visualized skull base. No significant abnormalities of the visualized orbits. Mild mucosal thickening of the visualized paranasal sinuses. No abnormal contours of the visualized pharynx. CT/CT internal auditory canals BI IMPRESSION: Normal CT appearance of the temporal bones.
== END 2023-10-03 07:29 | disposition home or self-care (01) ==
LOC: HO.CT 07:28
PROVIDERS: PCP Physician Assistant; Visit Provider Physician Assistant
DX: H93.11 Tinnitus, right ear (principal); H69.83 Other specified disorders of Eustachian tube, bilateral
CPT/HCPCS: 70480

== ENCOUNTER 2023-10-05 10:51 | Outpatient (AMB) | payer MEDICARE, MEDICAID, SELFPAY ==
[2023-10-05 10:57] VITALS: BP 112/68; BMI 43.2
--- NOTE | 2023-10-05 10:57 | A.OFFVIS_ITS ---
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: Tool Radial Drill Press Set Up Operator Present (Aidyn) Allergies calcium [Calcium] Allergy (Severe, Verified 10/05/23 10:59) HIVES doxycycline [Doxycycline] Allergy (Severe, Verified 10/05/23 10:59) FACIAL SWELLING,almost killed pt,inhouse for weakness,,incontinence?seizures Penicillins Allergy (Severe, Verified 10/05/23 10:59) Facial Swelling lactose Allergy (Mild, Verified 10/05/23 10:59) Unknown amoxicillin Allergy (Unknown, Verified 10/05/23 10:59) Throat swelling azithromycin [AZITHROMYCIN] Allergy (Unknown, Verified 10/05/23 10:59) Bloody Diarrhea cefuroxime [CEFUROXIME] Allergy (Unknown, Verified 10/05/23 10:59) Angioedema ciprofloxacin [From Cipro] Allergy (Unknown, Verified 10/05/23 10:59) Unknown clindamycin [CLINDAMYCIN] Allergy (Unknown, Verified 10/05/23 10:59) Anaphylaxis erythromycin base Allergy (Unknown, Verified 10/05/23 10:59) Diarrhea iron Allergy (Unknown, Verified 10/05/23 10:59) Unknown levofloxacin [From Levaquin] Allergy (Unknown, Verified 10/05/23 10:59) Unknown peanut [Peanut] Allergy (Unknown, Verified 10/05/23 10:59) Itching penicillin V Allergy (Unknown, Verified 10/05/23 10:59) ears and face swell,throat swell Sulfa (Sulfonamide Antibiotics) [SULFA(SULFONAMIDE ANTIBIOTICS)] Allergy (Unknown, Verified 10/05/23 10:59) ANAPHYLAXIS, swelling body,welts Armmbud-HMJ-XkS Reductase Inhibitor Adverse Reaction (Severe, Verified 10/05/23 10:59) Muscle Pain aspirin Adverse Reaction (Intermediate, Verified 10/05/23 10:59) Stomach Upset cefazolin Adverse Reaction (Mild, Verified 10/05/23 10:59) Anaphylaxis cheetos Allergy (Unknown, Uncoded 10/05/23 10:59) itchy, rash cranberry juice Allergy (Unknown, Uncoded 10/05/23 10:59) mouth itchy, bumps grape juice Allergy (Unknown, Uncoded 10/05/23 10:59) mouth itchy, bumps RAISIN Allergy (Unknown, Uncoded 10/05/23 10:59) Itching TURNIPS Allergy (Unknown, Uncoded 10/05/23 10:59) Unknown Plavix/clopidogrel Adverse Reaction (Intermediate, Uncoded 10/05/23 10:59) Fatigued, dizziness, lightheadedness Is last menstrual period known: No Post menopausal: Yes Patient : No HPI Comments Details: Patient is here for a follow up pelvic ultrasound previous visit she had reported right lower quadrant pain, at her last visit had some vulvar irritation irritation was given a prescription of topical betamethasone. She has a known history of lichen sclerosus. She is here today for a recheck of the area, reports the itching has resolved and has no other concerns. History of IBS, seen by GI in the past. [facility] Medical History (Updated 10/05/23 @ 11:29 by Leora Car CNM) CAD (coronary artery disease) IBS (irritable bowel syndrome) Exocrine pancreatic insufficiency Lichen sclerosus Cough Bilateral knee pain Rectal prolapse Pre-op examination Small intestinal bacterial overgrowth Appendicitis Kidney stone Carpal tunnel syndrome Right shoulder injury Vertigo Chronic headaches Diverticulosis Fibromyalgia Depression Surgical History H/O uterosacral colpopexy H/O breast surgery S/P triple vessel bypass History of endometrial ablation History of esophagogastroduodenoscopy (EGD) Hx of colonoscopy Hx of carpal tunnel repair (~07/2019) Hx of rotator cuff surgery Hx of shoulder surgery Hx of appendectomy Hx of cholecystectomy Family History Father Myocardial infarction, Onset Age: 46 Mother Congestive heart failure Stomach problems Stomach ulcer Anxiety and depression Myocardial infarction, Onset Age: 50 Mental health disorder Sister Heart problem Myocardial infarction, Onset Age: 59 Sister Afib Brother Throat cancer Lung cancer Social History Household Members: Family Housing: Apartment Alcohol intake: never Patient Tobacco Use Status: Former Tobacco user Quit Date: 2022 Tobacco use type: Cigarette Years Smoked: 30 +/- e-Cigarette/Vaping Use: Never Used Second Hand Smoke Exposure: No Advance Directives Date on File: 02/25/22 Patient : No service: No Current occupational status: disabled 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 Psych Appearance: well kempt Attitude: cooperative Thought process: Normal thought process present Results Reviewed Results Reviewed: [address] [address] Ultrasound Report Signed Patient: Yomaira Dunn MR#: [id number] : 1965 Acct:[id number] Age/Sex: 58 / F ADM Date: 09/22/23 Loc: HO.US Attending Dr: Leora Car CNM Ordering Physician: Leora Car CNM Date of Service: 09/22/23 Procedure(s): US pelvic and transvaginal Accession Number(s): [id number] cc: Angelo Tejada PA-C; Leora Car CNM~ EXAMINATION: US PELVIS CLINICAL INFORMATION: Pelvic pain, postmenopausal, endometrial ablation. COMPARISON: CT abdomen and pelvis August 07, 2023. TECHNIQUE: Ultrasound of the pelvis is performed using both transabdominal and transvaginal transducers along with Doppler. Transvaginal imaging is performed due to inadequate visualization transabdominally. FINDINGS: The uterus is anteverted and measures 6.3 x 2.4 x 4.1 cm. Endometrial thickness 3 mm. Trace amount of fluid within the endometrial cavity. Limited visualization due to bowel gas and body habitus. Echogenic foci within the lower uterine segment of the uterus characteristic of calcifications. No significant free fluid. Bilateral ovaries were not visualized. US/US pelvic and transvaginal IMPRESSION: 1. Endometrial thickness 3 mm. Trace amount of fluid within the endometrial cavity. 2. Echogenic foci within the lower uterine segment of the uterus characteristic of calcifications. 3. Bilateral ovaries were not visualized. 4. Severely limited visualization due to bowel gas and also due to body habitus. Dictated By: Janette Coleman MD Signed By: <Electronically signed by Janette Coleman MD in OV> 09/26/23 0924 DD/ 1121 TD/TT: Under Water Assistant: Assessment & Plan Assessment & Plan (1) Encounter to discuss test results: Code(s): Z71.2 - Person consulting for explanation of examination or test findings Category: Medical (2) Lichen sclerosus: Comment: Rx for betamethasone Code(s): L90.0 - Lichen sclerosus et atrophicus Category: Medical Plan Discussed: Ultrasound findings-limited due to technical issues, reviewed previous abdominal CT scan from July 2023 which was unremarkable for pelvic anatomy. Endometrial lining was normal 3 mm. Calcifications at cervix noted, history of endometrial ablation. Lichen sclerosus: Use of medication and went to follow up if not resolved any symptoms. Encouraged her to follow up with GI did her bloating symptoms. Patient has an annual exam scheduled for July of 2024. All of her questions and concerns were addressed to the best of my ability and shared decision making. She is agreeable to the plan of care. This note is constructed using voice recognition software. While every effort has been made to ensure accuracy, granulator machine operator errors may have been included. Coding Level of Care Code Est Pt Level 3 (73357) Diagnoses Encounter to discuss test results Z71.2 Lichen sclerosus L90.0
== END 2023-10-05 11:24 | disposition home or self-care (01) ==
LOC: HO.HWS 10:51
PROVIDERS: PCP Physician Assistant; Visit Provider Advanced Practice Midwife
DX: Z71.2 Person consulting for explanation of examination or test findings (principal); L90.0 Lichen sclerosus et atrophicus
CPT/HCPCS: 99213

== ENCOUNTER → 2023-10-05 10:51 | Outpatient (BNVA) | payer MEDICARE, MEDICAID, SELFPAY | PROVIDERS: PCP Physician Assistant; Visit Provider Advanced Practice Midwife | DX: Z71.2 Person consulting for explanation of examination or test findings (principal); L90.0 Lichen sclerosus et atrophicus | CPT/HCPCS: 99212 ==

== ENCOUNTER 2023-10-30 08:52 | Outpatient (AMB) | payer MEDICARE, MEDICAID, SELFPAY ==
[2023-10-30 09:13] VITALS: BP 110/76; PULSE 78; O2SAT 98
--- NOTE | 2023-10-30 09:13 | MHC.PC.OV ---
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: No Accompanied by: Self / Same As Patient Allergies calcium [Calcium] Allergy (Severe, Verified 10/30/23 09:32) HIVES doxycycline [Doxycycline] Allergy (Severe, Verified 10/30/23 09:32) FACIAL SWELLING,almost killed pt,inhouse for weakness,,incontinence?seizures Penicillins Allergy (Severe, Verified 10/30/23 09:32) Facial Swelling lactose Allergy (Mild, Verified 10/30/23 09:32) Unknown amoxicillin Allergy (Unknown, Verified 10/30/23 09:32) Throat swelling azithromycin [AZITHROMYCIN] Allergy (Unknown, Verified 10/30/23 09:32) Bloody Diarrhea cefuroxime [CEFUROXIME] Allergy (Unknown, Verified 10/30/23 09:32) Angioedema ciprofloxacin [From Cipro] Allergy (Unknown, Verified 10/30/23 09:32) Unknown clindamycin [CLINDAMYCIN] Allergy (Unknown, Verified 10/30/23 09:32) Anaphylaxis erythromycin base Allergy (Unknown, Verified 10/30/23 09:32) Diarrhea iron Allergy (Unknown, Verified 10/30/23 09:32) Unknown levofloxacin [From Levaquin] Allergy (Unknown, Verified 10/30/23 09:32) Unknown peanut [Peanut] Allergy (Unknown, Verified 10/30/23 09:32) Itching penicillin V Allergy (Unknown, Verified 10/30/23 09:32) ears and face swell,throat swell Sulfa (Sulfonamide Antibiotics) [SULFA(SULFONAMIDE ANTIBIOTICS)] Allergy (Unknown, Verified 10/30/23 09:32) ANAPHYLAXIS, swelling body,welts [id number]-PVH-XmB Reductase Inhibitor Adverse Reaction (Severe, Verified 10/30/23 09:32) Muscle Pain aspirin Adverse Reaction (Intermediate, Verified 10/30/23 09:32) Stomach Upset cefazolin Adverse Reaction (Mild, Verified 10/30/23 09:32) Anaphylaxis cheetos Allergy (Unknown, Uncoded 10/30/23 09:32) itchy, rash cranberry juice Allergy (Unknown, Uncoded 10/30/23 09:32) mouth itchy, bumps grape juice Allergy (Unknown, Uncoded 10/30/23 09:32) mouth itchy, bumps RAISIN Allergy (Unknown, Uncoded 10/30/23 09:32) Itching TURNIPS Allergy (Unknown, Uncoded 10/30/23 09:32) Unknown Plavix/clopidogrel Adverse Reaction (Intermediate, Uncoded 10/30/23 09:32) Fatigued, dizziness, lightheadedness Medication List - Last Reconciled 10/30/23 by Angelo Tejada PA-C albuterol sulfate 2.5 mg (3 mL) inhalation Q6H PRN 15 days alirocumab (Praluent Pen) 75 mg subcut Q14D aspirin (Enteric Coated Aspirin) 81 mg PO DAILY betamethasone, augmented 0.05 % 1 appl topical DAILY 8 weeks budesonide 32 mcg/actuation 2 sprays intranasal BID 30 days capsaicin 0.1% (Arthritis Pain Relief (capsaicin)) 1 appl topical TID cholecalciferol (vitamin D3) 50 mcg PO DAILY levalbuterol tartrate 45 mcg/actuation 2 inhalations inhalation Q6H 30 days linezolid 600 mg PO Q12H 7 days loratadine 10 mg PO DAILY miscellaneous medical supply 1 ea miscellaneous .nightly 99 days fxmgqtir-[id number]-ZR 3.5-10,000-1 mg/mL-unit/mL-% 4 drps otic (ear) left TID 10 days omeprazole 20 mg PO DAILY 30 days rifaximin 550 mg PO TID 14 days Xopenex HFA 45 mcg/actuation (levalbuterol tartrate) 2 inhalations inhalation Q6H 30 days NS Tobacco use date assessed: 06/22/23 Dental Screening Dental Screen Date: 08/03/23 HPI PE HPI Details Patient is a 58-year-old female here today for annual physical. Patient has a past medical history significant for coronary artery disease status post bypass, chronic sinusitis, asthma, irritable bowel syndrome, former smoker. Concern--> reports having low back pain and left shoulder pain that has been worsening over last few weeks. She attributes her left shoulder pain to her open heart surgery. She is willing to get x-rays of both affected areas .. Coronary artery disease: Continues to follow cardiology. Continues on enteric-coated aspirin. Believe this is causing some GI side effects. She is now doing Praluent injections. Otherwise most recent lipid panel showing excellent control over LDL. .. Asthma- has been fairly well controlled with p.r.n. use of her leave albuterol Vaccines: Up-to-date with pneumonia vaccine, up-to-date with tetanus vaccine, decline COVID vaccine, Decline Shingrex Mammogram: Done December 2020 BI-RADS 1- Has not been willing to get another mammogram due to her sternal pain. .. 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 . [facility] Medical History CAD (coronary artery disease) IBS (irritable bowel syndrome) Exocrine pancreatic insufficiency Lichen sclerosus Cough Bilateral knee pain Rectal prolapse Pre-op examination Small intestinal bacterial overgrowth Appendicitis Kidney stone Carpal tunnel syndrome Right shoulder injury Vertigo Chronic headaches Diverticulosis Fibromyalgia Depression Surgical History H/O uterosacral colpopexy H/O breast surgery S/P triple vessel bypass History of endometrial ablation History of esophagogastroduodenoscopy (EGD) Hx of colonoscopy Hx of carpal tunnel repair (~07/2019) Hx of rotator cuff surgery Hx of shoulder surgery Hx of appendectomy Hx of cholecystectomy Family History Father Myocardial infarction, Onset Age: 46 Mother Congestive heart failure Stomach problems Stomach ulcer Anxiety and depression Myocardial infarction, Onset Age: 50 Mental health disorder Sister Heart problem Myocardial infarction, Onset Age: 59 Sister Afib Brother Throat cancer Lung cancer Social History (Updated 10/30/23 @ 09:39 by Angelo Tejada PA-C) Household Members: Family Housing: Apartment Alcohol intake: never Patient Tobacco Use Status: Former Tobacco user Tobacco use type: Cigarette Years Smoked: 30 +/- e-Cigarette/Vaping Use: Never Used Second Hand Smoke Exposure: No Advance Directives Date on File: 02/25/22 service: No Current occupational status: disabled 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 Jeronimo Najera, Lyly Triplett, Kike Nuñez and colleagues, with an educational melo from [email or web address]. ACT Questionnaire In the past 4 weeks, how much of the time did your asthma keep you from getting as much done at work, school or at home?: None of the time During the past 4 weeks, how often have you had shortness of breath?: Not at all During the past 4 weeks, how often did your asthma symptoms wake you up at night or earlier than usual in the morning?: Not at all During the past 4 weeks, how often have you had to use your rescue inhaler or nebulizer medication?: Not at all How would you rate your asthma control during the past 4 weeks?: Well controlled ACT Interpretation: Negative Score: 24 Review of Systems Const Denies body aches, Denies chills, Denies excessive sweating, Denies fatigue, Denies fever(s) and Denies headache(s) Eyes Denies blurry vision ENT Denies dysphagia, Denies vertigo, Denies dizziness, Denies headache(s), Denies hearing loss and Denies tinnitus Card Denies chest pain, Denies chest pain with activity, Denies syncope, Denies irregular heart rhythm and Denies dyspnea Resp Denies chest congestion, Denies cough, Denies hemoptysis, Denies dyspnea and Denies wheezing GI Denies abdominal pain, Denies melena, Denies hematochezia, Denies coffee ground emesis, Denies dysphagia, Denies diarrhea, Denies nausea and Denies vomiting Denies urinary frequency, Denies dysuria, Denies urinary hesitancy and Denies urinary urgency Musc Denies arthralgias, Denies limited range of motion, Denies muscle cramps and Denies muscle weakness Skin/Breast Denies rash and Denies skin ulcer Neuro Denies Abnormal speech present, Denies confusion, Denies vertigo, Denies dizziness, Denies syncope, Denies headache(s), Denies memory loss and Denies seizure-like activity Psych Denies anxiety, Denies confusion, Denies depression, Denies memory loss, Denies panic attacks and Denies paranoia Endo Denies excessive sweating, Denies fatigue, Denies flushing, Denies polydipsia and Denies polyuria Aller/Immun Denies wheezing Physical exam (Primary Care) Vital Signs: Last Vital Signs Pulse 78 10/30/23 09:13 BP 110/76 10/30/23 09:13 Pulse Ox 98 10/30/23 09:13 Oxygen Delivery Method Room Air 10/30/23 09:13 Tobacco/Smoking Status: Tobacco use Status Tobacco use date assessed 06/22/23 10/30/23 09:21 Patient Tobacco Use Status Former Tobacco user 10/30/23 09:21 Tobacco use type Cigarette 10/30/23 09:21 e-Cigarette/Vaping Use Never Used 10/30/23 09:21 Thrive Assessment: Date of Thrive Assessment Date Thrive assessed 06/22/23 10/30/23 09:21 Const General: cooperative, comfortable, no acute distress, alert and awake; No confusion Orientation/consciousness: oriented to person, oriented to place, patient oriented x3 and No confusion HENMT Head: Yes normocephalic Ears: external ears normal and TM's normal bilaterally Face and sinus: No sinus tenderness Mouth: Normal oral and palatal mucosa present and tongue normal Teeth and gingiva: dentition normal and gingiva normal Throat: Yes posterior oropharynx normal, Yes tonsils normal and Yes uvula midline Eyes Conjunctivae: conjunctivae normal Sclerae: sclerae normal Pupils: Equal, round and reactive pupils present EOM: EOMs intact bilaterally Direct Ophthalmoscopy: No no photophobia Neck Neck: Yes no lymphadenopathy, No tender and Yes no JVD Thyroid: Thyroid normal Carotids: no bruits Chest Chest palpation & inspection: no tenderness Resp Effort & Inspection: normal respiratory effort, no audible wheezes, not labored and no stridor Auscultation: no crackles, no rales, no rhonchi and no wheezes Cardio Jugular venous distension: no JVD Rate: regular rate, not bradycardic and not tachycardic Rhythm: regular rhythm Bruits: no carotid bruits Peripheral pulses: Peripheral pulses 2+ throughout GI Inspection: Yes normal to inspection, No abdominal wall ecchymosis and No visible herniation Palpation (GI): Soft to palpation, nontender, no guarding, not rigid and No hepatosplenomegaly present Auscultation: normoactive bowel sounds General: Yes no CVA tenderness Back/Spine/Pelvis Back: no CVA tenderness and No back tenderness Cervical Spine: cervical ROM normal Thoracic/Lumbar Spine: thoracic and lumbar spine normal to inspection, straight leg raise negative bilaterally, No thoraco-lumbar ROM limited and No lumbar spinal tenderness Skin Lesions: no lesions Rashes: no rashes Wounds: no wounds Neuro General: oriented to person, oriented to place, patient oriented x3, CN's II-XI intact bilaterally and No confusion Cranial nerves: Yes Equal, round and reactive pupils present and Yes Normal accommodation reflex present Cognition (Neuro): normal cognition Speech: No Abnormal speech present Gait exam (Neuro): Normal gait present Motor exam (neuro): 5/5 motor strength present throughout Extrem Other: LEFT SHOULDER LIMITED RANGE OF MOTION COMPARED TO RIGHT Right upper extremity: full ROM; no cyanosis Left upper extremity: full ROM; no cyanosis Right lower extremity: no edema Left lower extremity: no edema Psych Appearance: grossly normal Mental Status: mental status grossly normal Affect: normal affect Attitude: cooperative Thought process: Normal thought process present Assessment and Plan Assessment & Plan (1) Annual physical exam: Code(s): Z00.00 - Encounter for general adult medical examination without abnormal findings (2) CAD (coronary artery disease): Code(s): I25.10 - Atherosclerotic heart disease of [place] coronary artery without angina pectoris Qualifiers: Coronary Disease-Associated Artery/Lesion type: bypass graft [place] vs. 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 Unfortunately still has tenderness in her sternum due to her open heart surgery and complications of infection.. Continues on baby aspirin. She is on Praluent injections to control her cholesterol. Most recent lipid panel showing excellent control of her LDL.. (3) GERD (gastroesophageal reflux disease): Code(s): K21.9 - Gastro-esophageal reflux disease without esophagitis Qualifiers: Esophagitis presence: esophagitis presence not specified Qualified Code(s): K21.9 - Gastro-esophageal reflux disease without esophagitis Plan: Has been suffering with GERD like symptoms worse since starting dual anti-platelet therapy. Advised on trying [id number] Maalox. (4) Chronic sinusitis: Code(s): J32.9 - Chronic sinusitis, unspecified Qualifiers: Sinusitis location: frontal Qualified Code(s): J32.1 - Chronic frontal sinusitis Plan: Patient continues to suffer with sinusitis symptoms. She does use allergy medication nasal spray albuterol inhaler. She reports that Rhinocort was helpful in the past and will try to prescribe her this nasal spray. We have gotten CT of her auditory canals which were normal. Has no further follow-up with ENT specialty. (5) Low back pain: Code(s): M54.50 - Low back pain, unspecified Qualifiers: Chronicity: chronic Back pain laterality: left Sciatica presence: without sciatica Qualified Code(s): M54.50 - Low back pain, unspecified; G89.29 - Other chronic pain Plan: Reports having low back pain likely secondary to her weight gain and other comorbidities. Will get x-ray of her lower back. (6) Left shoulder tendinitis: Code(s): M77.8 - Other enthesopathies, not elsewhere classified Plan: Patient has signs symptoms of left shoulder tendinitis. Would likely benefit from physical therapy. Will get x-ray to left shoulder to evaluate for any advanced arthritis. (7) Asthma: Code(s): J45.909 - Unspecified asthma, uncomplicated Qualifiers: Asthma severity: moderate Asthma persistence: unspecified Asthma complication type: uncomplicated Qualified Code(s): J45.909 - Unspecified asthma, uncomplicated Plan: Patient reports asthma has been fairly well controlled, allergy seasons are always stuff. Does use nebulizer and levo albuterol as needed Orders: Orders XR shoulder LT min 2V Today M77.8 - Other enthesopathies, not elsewhere classified Lipid Panel Today I25.810 - Atherosclerosis of coronary artery bypass graft(s) without angina pectoris Comprehensive [place]. Panel Fast Today I25.810 - Atherosclerosis of coronary artery bypass graft(s) without angina pectoris Complete Blood Count no Diff Today I25.810 - Atherosclerosis of coronary artery bypass graft(s) without angina pectoris XR lumbar spine 2-3V Today G89.29 - Other chronic pain, M54.50 - Low back pain, unspecified Medications: New riboflavin (vitamin B2) 50 mg PO DAILY 30 days 30 tabs 3RF R51.9 - Headache, unspecified Refilled aspirin (Enteric Coated Aspirin) 81 mg PO DAILY 90 tabs 3RF Patient Instructions: Goal: LDL to remain below 70 Barriers: Adherence to physical activity and healthy eating habits Coding Level of Care Code Est Pt Prev Care 40-64y(53612) Diagnoses Annual physical exam Z00.00 Coronary artery disease involving coronary bypass graft of [place] heart without angina pectoris I25.810 Coronary Disease-Associated Artery/Lesion type: bypass graft [place] vs. transplanted heart: [place] heart Associated angina: without angina Gastroesophageal reflux disease, unspecified whether esophagitis present K21.9 Esophagitis presence: esophagitis presence not specified Chronic frontal sinusitis J32.1 Sinusitis location: frontal Chronic left-sided low back pain without sciatica M54.50; G89.29 Chronicity: chronic Back pain laterality: left Sciatica presence: without sciatica Left shoulder tendinitis M77.8 Moderate asthma without complication, unspecified whether persistent J45.909 Asthma severity: moderate Asthma persistence: unspecified Asthma complication type: uncomplicated
== END 2023-10-30 10:05 | disposition home or self-care (01) ==
LOC: HO.HMGH 08:52
PROVIDERS: PCP Physician Assistant; Visit Provider Physician Assistant
DX: Z00.00 Encounter for general adult medical examination without abnormal findings (principal); I25.810 Atherosclerosis of coronary artery bypass graft(s) without angina pectoris; K21.9 Gastro-esophageal reflux disease without esophagitis; J32.1 Chronic frontal sinusitis; M54.50 Low back pain, unspecified; G89.29 Other chronic pain; M77.8 Other enthesopathies, not elsewhere classified; J45.909 Unspecified asthma, uncomplicated
CPT/HCPCS: 99396

== ENCOUNTER 2023-11-14 08:40 | Outpatient (REF) | payer MEDICARE, MEDICAID, SELFPAY ==
--- NOTE | ~2023-11-14 | XR_ITS ---
EXAMINATION: XR SHOULDER, LEFT CLINICAL INFORMATION: Enthesopathy is not otherwise classified. COMPARISON: None available. TECHNIQUE: Three views of the left shoulder. FINDINGS: Median sternotomy wires and mediastinal hardware partially imaged. Bones are diffusely demineralized. Moderate degenerative changes in the acromioclavicular joint. Glenohumeral alignment preserved with mild degenerative changes. Mild hypertrophic change along the greater tuberosity. XR/XR shoulder LT min 2V IMPRESSION: 1. Moderate degenerative changes in the acromioclavicular joint. 2. Mild degenerative changes in the glenohumeral joint.
--- NOTE | ~2023-11-14 | XR_ITS ---
EXAMINATION: XR LUMBOSACRAL SPINE CLINICAL INFORMATION: Low back pain unspecified. COMPARISON: 07/17/2017. TECHNIQUE: Three views of the lumbosacral spine. FINDINGS: Dextroscoliosis of the lumbar spine. The bones are diffusely demineralized. Surgical clips in the right upper quadrant. Facet arthritis in the lower lumbar spine. Atherosclerotic aortoiliac calcifications. Moderate multilevel lumbar spondylosis with loss of disc space height at L3-L4. XR/XR lumbar spine 2-3V IMPRESSION: Moderate multilevel lumbar spondylosis with loss of disc space height at L3-L4.
[2023-11-14 09:11] LABS: Hematocrit 41.1 % (37.0-47.0); Hemoglobin 12.8 g/dl (12.0-16.0); Mean Corpuscular HGB Conc 31.1 g/dl (31.0-35.0); Mean Corpuscular Hemoglobin 25.3 pg (27.0-33.0); Mean Corpuscular Volume 81.2 fL (80.0-98.0); Platelet Count 389 X10*3/uL (160-400); Red Blood Count 5.06 X10*6/uL (4.20-5.50); Red Cell Distribution Width 16.2 % (11.0-16.0); White Blood Count 10.8 X10*3/uL (4.8-10.8)
[2023-11-14 09:46] LABS: Alanine Aminotransferase 26 U/L (0-31); Albumin Level 3.9 g/dL (3.5-5.0); Alkaline Phosphatase 128 U/L (39-117); Anion Gap 12 (12-20); Aspartate Amino Transferase 17 U/L (5-31); Bilirubin Total 0.2 mg/dL (0.0-1.0); Blood Urea Nitrogen 18 mg/dL (9-16); Calcium 9.5 mg/dL (8.4-10.2); Carbon Dioxide 26 mmol/L (22-29); Chloride 107 mmol/L (96-108); Cholesterol 175 mg/dL (<200); Estimated Glomerular Filt Rate > 60; Glucose Fasting 120 mg/dL (60-99); HDL Cholesterol 39 mg/dL (>40); LDL Cholesterol Calculated 119 mg/dL (<100); Potassium 4.9 mmol/L (3.3-5.1); Sodium 140 mmol/L (135-145); Total Protein 7.5 g/dL (6.5-8.0); Triglycerides 85 mg/dL (<150)
== END 2023-11-14 08:41 | disposition home or self-care (01) ==
LOC: HO.XRAY 08:40
PROVIDERS: PCP Physician Assistant; Visit Provider Physician Assistant
DX: I25.810 Atherosclerosis of coronary artery bypass graft(s) without angina pectoris (principal); M77.8 Other enthesopathies, not elsewhere classified; M54.50 Low back pain, unspecified; G89.29 Other chronic pain
CPT/HCPCS: 36415; 72100; 73030; 80053; 80061; 85027

== ENCOUNTER 2023-11-30 14:22 | Emergency (ER) | payer MEDICARE, MEDICAID, SELFPAY ==
--- NOTE | ~2023-11-30 | XR_ITS ---
EXAMINATION: XR CHEST CLINICAL INFORMATION: Chest pain COMPARISON: June 16 is TECHNIQUE: 2 views of the chest were obtained. FINDINGS: Patient is status post medial sternotomy for CABG. There is no evidence of nodules infiltrates or pleural effusion. Heart is not enlarged XR/XR chest 2V IMPRESSION: No active cardiopulmonary disease
[2023-11-30 14:26] VITALS: BP 127/83; PULSE 80; O2SAT 100
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
[2023-11-30 14:38] VITALS: BP 126/68; PULSE 74; RESP 20; TEMP 36.4; O2SAT 97; BMI 42.6
--- NOTE | 2023-11-30 14:43 | ECG_ITS ---
Test Reason : R ARM HEAVINESS Blood Pressure : / mmHG Vent. Rate : 071 BPM Atrial Rate : 071 BPM P-R Int : 168 ms QRS Dur : 080 ms QT Int : 384 ms P-R-T Axes : 037 021 050 degrees QTc Int : 417 ms Normal sinus rhythm Normal ECG When compared with ECG of 07-AUG-2023 11:50, No significant change was found Referred By: Generic ED Physician Electronically Signed By:JUNG OSMAN
[2023-11-30 14:50] VITALS: RESP 18
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
[2023-11-30 15:13] LABS: MANUAL DIFF FLAG NO
[2023-11-30 15:14] LABS: Basophils Absolute Auto 0.1 X10*3/uL (0.0-0.2); Basophils Percent Auto 0.6 % (0-2); Eosinophils Absolute Auto 0.3 X10*3/uL (0.0-0.4); Eosinophils Percent Auto 3.1 % (0-4); Hematocrit 42.6 % (37.0-47.0); Hemoglobin 13.5 g/dl (12.0-16.0); Imm Gran Abs Auto 0.05 X10*3/uL (0.00-0.03); Imm Gran Pct Auto 0.5 % (0.0-0.4); Lymphocytes Absolute Auto 2.7 X10*3/uL (1.2-4.9); Lymphocytes Percent Auto 24.8 % (20-40); Mean Corpuscular HGB Conc 31.7 g/dl (31.0-35.0); Mean Corpuscular Hemoglobin 25.5 pg (27.0-33.0); Mean Corpuscular Volume 80.5 fL (80.0-98.0); Mean Platelet Volume 9.9 fL (9.4-12.3); Monocytes Percent Auto 8.7 % (2-11); Neutrophils Absolute Auto 6.8 x10*3/uL (2.0-8.3); Neutrophils Percent Auto 62.3 % (45-73); Platelet Count 361 X10*3/uL (160-400); Red Blood Count 5.29 X10*6/uL (4.20-5.50); Red Cell Distribution Width 15.9 % (11.0-16.0)
[2023-11-30 15:39] LABS: Alanine Aminotransferase 23 U/L (0-31); Albumin Level 4.1 g/dL (3.5-5.0); Alkaline Phosphatase 126 U/L (39-117); Anion Gap 15 (12-20); Aspartate Amino Transferase 30 U/L (5-31); Bilirubin Direct 0.1 mg/dL (0.0-0.5); Bilirubin Total 0.3 mg/dL (0.0-1.0); Blood Urea Nitrogen 14 mg/dL (9-16); Calcium 9.8 mg/dL (8.4-10.2); Carbon Dioxide 23 mmol/L (22-29); Chloride 109 mmol/L (96-108); Creatinine Clr Calc Pharmacy 66.6; Estimated Glomerular Filt Rate 59; Glucose Random 103 mg/dL (60-115); Lipase 15 U/L (8-78); Potassium 4.9 mmol/L (3.3-5.1); Sodium 142 mmol/L (135-145); Total Protein 8.1 g/dL (6.5-8.0)
[2023-11-30 15:45] LABS: Troponin-I High Sensitivity < 2.7 ng/L (<3.5-17.0)
[2023-11-30 16:00] VITALS: BP 145/71; PULSE 74; RESP 14; O2SAT 99
--- NOTE | 2023-11-30 16:30 | PC.NURSE ---
pt is currently resting comfortably in no apparent distress,
[2023-11-30 17:35] LABS: Troponin-I High Sensitivity < 2.7 ng/L (<3.5-17.0)
[2023-11-30 18:02] VITALS: BP 145/71; PULSE 74; RESP 14; TEMP -17.7; TEMP 0; O2SAT 99
== END 2023-11-30 18:02 | disposition home or self-care (01) ==
PROVIDERS: Emergency Provider Emergency Medicine; PCP Physician Assistant
DX: R07.89 Other chest pain (principal); R53.1 Weakness; Z79.899 Other long term (current) drug therapy
CPT/HCPCS: 36415; 71046; 80048; 80076; 83690; 84484; 85025; 93005; 99283; 99284

== ENCOUNTER → 2023-11-30 14:43 | Outpatient (BNV) | payer MEDICARE, MEDICAID, SELFPAY | PROVIDERS: Emergency Provider Emergency Medicine; PCP Physician Assistant; Visit Provider Internal Medicine | DX: R06.02 Shortness of breath (principal) | CPT/HCPCS: 93010 ==

== ENCOUNTER 2024-01-03 09:55 | Outpatient (AMB) | payer MEDICARE, MEDICAID, SELFPAY ==
[2024-01-03 10:11] VITALS: BP 110/56; PULSE 93
--- NOTE | 2024-01-03 10:11 | A.OFFVIS_ITS ---
Vital Signs 01/03/24 10:11 Height 5 ft BMI Reason not done Patient refused/unable BP 110/56 L Blood Pressure Location Rt brachial Position Sitting Pulse 93 Pulse Source Pulse Oximeter Intake Visit Reasons: 4 mth fu Sign Letterer Required: No Accompanied by: Child Allergies calcium [Calcium] Allergy (Severe, Verified 11/30/23 14:42) HIVES doxycycline [Doxycycline] Allergy (Severe, Verified 11/30/23 14:42) FACIAL SWELLING,almost killed pt,inhouse for weakness,,incontinence?seizures Penicillins Allergy (Severe, Verified 11/30/23 14:42) Facial Swelling lactose Allergy (Mild, Verified 11/30/23 14:42) Unknown amoxicillin Allergy (Unknown, Verified 11/30/23 14:42) Throat swelling azithromycin [AZITHROMYCIN] Allergy (Unknown, Verified 11/30/23 14:42) Bloody Diarrhea cefuroxime [CEFUROXIME] Allergy (Unknown, Verified 11/30/23 14:42) Angioedema ciprofloxacin [From Cipro] Allergy (Unknown, Verified 11/30/23 14:42) Unknown clindamycin [CLINDAMYCIN] Allergy (Unknown, Verified 11/30/23 14:42) Anaphylaxis erythromycin base Allergy (Unknown, Verified 11/30/23 14:42) Diarrhea iron Allergy (Unknown, Verified 11/30/23 14:42) Unknown levofloxacin [From Levaquin] Allergy (Unknown, Verified 11/30/23 14:42) Unknown peanut [Peanut] Allergy (Unknown, Verified 11/30/23 14:42) Itching penicillin V Allergy (Unknown, Verified 11/30/23 14:42) ears and face swell,throat swell Sulfa (Sulfonamide Antibiotics) [SULFA(SULFONAMIDE ANTIBIOTICS)] Allergy (Unknown, Verified 11/30/23 14:42) ANAPHYLAXIS, swelling body,welts Mzeturc-VIB-BeL Reductase Inhibitor Adverse Reaction (Severe, Verified 11/30/23 14:42) Muscle Pain aspirin Adverse Reaction (Intermediate, Verified 11/30/23 14:42) Swelling cefazolin Adverse Reaction (Mild, Verified 11/30/23 14:42) Anaphylaxis cheetos Allergy (Unknown, Uncoded 10/30/23 09:32) itchy, rash cranberry juice Allergy (Unknown, Uncoded 10/30/23 09:32) mouth itchy, bumps grape juice Allergy (Unknown, Uncoded 10/30/23 09:32) mouth itchy, bumps RAISIN Allergy (Unknown, Uncoded 10/30/23 09:32) Itching TURNIPS Allergy (Unknown, Uncoded 10/30/23 09:32) Unknown Plavix/clopidogrel Adverse Reaction (Intermediate, Uncoded 10/30/23 09:32) Fatigued, dizziness, lightheadedness Medication List - Last Reconciled 01/03/24 by Peter Quinn MD albuterol sulfate 2.5 mg (3 mL) inhalation Q6H PRN 15 days alirocumab (Praluent Pen) 75 mg subcut Q14D aspirin (Enteric Coated Aspirin) 81 mg PO DAILY betamethasone, augmented 0.05 % 1 appl topical DAILY 8 weeks budesonide 32 mcg/actuation 2 sprays intranasal BID 30 days capsaicin 0.1% (Arthritis Pain Relief (capsaicin)) 1 appl topical TID cholecalciferol (vitamin D3) 50 mcg PO DAILY loratadine 10 mg PO DAILY miscellaneous medical supply 1 ea miscellaneous .nightly 99 days neloorch-cpodpztfa-KO 3.5-10,000-1 mg/mL-unit/mL-% 4 drps otic (ear) left TID 10 days omeprazole 20 mg PO DAILY 30 days riboflavin (vitamin B2) 50 mg PO DAILY 30 days Xopenex HFA 45 mcg/actuation (levalbuterol tartrate) 2 inhalations inhalation Q6H 30 days NS HPI Comments Details: Yomaira returns for follow-up. Previous patient of , but switched to me. In 2022, she was admitted for NSTEMI. Then underwent cardiac catheterization showing multivessel disease leading to bypass surgery. That was in turn complicated by sternal wound infection requiring debridement and she apparently had wound VAC followed by antibiotics. Since that time, she has been having chest pain and she has had CT scans but no overt findings on the same. I also discussed this directly with her cardiac surgeon as well Dr. Patrick and he does not believe that there is anything else that needs to get done. He also stated to me that her pains could also be from flare-up of fibromyalgia. Patient still has pains across his chest, on the sternum, shoulders extra. Provoked by body movements. Otherwise, she has had low blood pressure issues and then beta-blockers were stopped. She also has intolerance statins. On Praluent. However, she believes that she was not taking the injections correctly as the contents were not apparently going into her body and now she is trying to correct that. Hence it seems that her LDL levels have been up and down. She also has intolerance to antiplatelet drugs. She states she can not take Plavix. With regard aspirin, she is on enteric-coated inversion but she still states that is bothering her too much. Hence she is taking them every few days. [facility] Medical History CAD (coronary artery disease) IBS (irritable bowel syndrome) Exocrine pancreatic insufficiency Lichen sclerosus Cough Bilateral knee pain Rectal prolapse Pre-op examination Small intestinal bacterial overgrowth Appendicitis Kidney stone Carpal tunnel syndrome Right shoulder injury Vertigo Chronic headaches Diverticulosis Fibromyalgia Depression Surgical History H/O uterosacral colpopexy H/O breast surgery S/P triple vessel bypass History of endometrial ablation History of esophagogastroduodenoscopy (EGD) Hx of colonoscopy Hx of carpal tunnel repair (~07/2019) Hx of rotator cuff surgery Hx of shoulder surgery Hx of appendectomy Hx of cholecystectomy Family History Father Myocardial infarction, Onset Age: 46 Mother Congestive heart failure Stomach problems Stomach ulcer Anxiety and depression Myocardial infarction, Onset Age: 50 Mental health disorder Sister Heart problem Myocardial infarction, Onset Age: 59 Sister Afib Brother Throat cancer Lung cancer Social History Household Members: Family Housing: Apartment Alcohol intake: never Patient Tobacco Use Status: Former Tobacco user Tobacco use type: Cigarette Years Smoked: 30 +/- e-Cigarette/Vaping Use: Never Used Second Hand Smoke Exposure: No Advance Directives Date on File: 02/25/22 service: No Current occupational status: disabled 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 Cognitive needs: No Hearing needs: No Vision needs: Yes (Glasses) Female Reproductive History Menstrual Age of Menarche: 15 Review of Systems Const Denies chills, Denies fatigue, Denies fever(s), Denies weight gain and Denies weight loss ENT Denies dizziness Card Denies chest pain, Denies leg edema, Denies lightheadedness, Denies palpitations, Denies dyspnea on exertion, Denies orthopnea and Denies other Resp Denies cough and Denies dyspnea on exertion GI Denies hematochezia and Denies change in stool character Musc Denies abnormal gait, Denies muscle weakness, Denies numbness, Denies radiating pain into limb and Denies tingling Neuro Denies abnormal gait, Denies dizziness, Denies numbness and Denies tingling Endo Denies fatigue and Denies palpitations Physical Exam Vital Signs: Last Vital Signs Pulse 93 01/03/24 10:11 BP 110/56 L 01/03/24 10:11 Const General: comfortable and no acute distress Orientation/consciousness: patient oriented x3 HEENT Other: Unremarkable Head: Yes normal to inspection Neck Neck: Yes normal visual inspection Chest Chest palpation & inspection: normal inspection of the chest Resp Auscultation: clear to auscultation bilaterally Cardio Palpation: normal PMI Heart sounds: S1 normal heart sound present, S2 normal heart sound present, no gallops, no murmurs and no rubs GI Palpation (GI): Soft to palpation Back/Spine/Pelvis Other: unremarkable Skin General skin exam: no rashes or lesions noted Neuro General: patient oriented x3 Extrem General: Yes normal to inspection Psych Mental Status: mental status grossly normal Assessment & Plan Assessment & Plan (1) CAD (coronary artery disease): Code(s): I25.10 - Atherosclerotic heart disease of [place] coronary artery without angina pectoris Category: Medical Qualifiers: Associated angina: without angina Coronary Disease-Associated Artery/Lesion type: bypass graft [place] vs. transplanted heart: [place] heart Qualified Code(s): I25.810 - Atherosclerosis of coronary artery bypass graft(s) without angina pectoris (2) S/P CABG (coronary artery bypass graft): Code(s): Z95.1 - Presence of aortocoronary bypass graft Category: Surgical (3) Sternum pain: Code(s): R07.89 - Other chest pain Category: Medical Plan She generally seems stable from cardiac but various pain issues as still ongoing. With regard to that, consider referral to rheumatology and message sent to PCP. Discussed with cardiac surgeon as well. For antiplatelet drugs, she is on enteric-coated aspirin advised her to make it more regular as she is taking it every few days. She can try to take it with foods at dinner time or bedtime extra. Off beta-blockers due to low blood pressure issues. With regard to statins/dyslipidemia, history of statin intolerance. She is on Praluent. LDL levels have been up and down but she states that it is because of incorrect injection techniques. She states she has fixed that issue now. Total time spent including review of data, counseling, documentation, coordination of care-31 minutes. Medications: Changed From aspirin (Enteric Coated Aspirin) 81 mg PO DAILY 90 tabs 3RF To aspirin (Enteric Coated Aspirin) 4x a week 81 mg PO DAILY Coding Level of Care Code Est Pt Level 4 (07693) Diagnoses Coronary artery disease involving coronary bypass graft of [place] heart without angina pectoris I25.810 Associated angina: without angina Coronary Disease-Associated Artery/Lesion type: bypass graft [place] vs. transplanted heart: [place] heart S/P CABG (coronary artery bypass graft) Z95.1 Sternum pain R07.89
== END 2024-01-03 10:37 | disposition home or self-care (01) ==
PROVIDERS: PCP Physician Assistant; Visit Provider Internal Medicine
DX: I25.810 Atherosclerosis of coronary artery bypass graft(s) without angina pectoris (principal); Z95.1 Presence of aortocoronary bypass graft; R07.89 Other chest pain
CPT/HCPCS: 99214

== ENCOUNTER → 2024-01-03 09:55 | Outpatient (BNVA) | payer MEDICARE, MEDICAID, SELFPAY | PROVIDERS: PCP Physician Assistant; Visit Provider Internal Medicine | DX: I25.810 Atherosclerosis of coronary artery bypass graft(s) without angina pectoris (principal); R07.89 Other chest pain; Z95.1 Presence of aortocoronary bypass graft | CPT/HCPCS: 99212 ==

== ENCOUNTER 2024-01-16 12:12 | Outpatient (AMB) | payer MEDICARE, MEDICAID, SELFPAY ==
--- NOTE | 2024-01-16 12:13 | AM.OFFWIN_ITS ---
Intake Vital Signs 01/16/24 12:14 Height 5 ft Weight 200 lb BMI 39.1 BP 110/72 Blood Pressure Location Rt brachial Position Sitting Pulse 86 Pulse Source Pulse Oximeter Pulse Oximetry (%) 96 Oxygen Delivery Method Room Air Intake Visit Reasons: EP- LT shoulder pain, injury on Intake Note: Patient here for left shoulder pain/numbness, she does remember injuring it on . Patient Tobacco Use Status: Former Tobacco user Allergies calcium [Calcium] Allergy (Severe, Verified 01/16/24 12:15) HIVES doxycycline [Doxycycline] Allergy (Severe, Verified 01/16/24 12:15) FACIAL SWELLING,almost killed pt,inhouse for weakness,,incontinence?seizures Penicillins Allergy (Severe, Verified 01/16/24 12:15) Facial Swelling lactose Allergy (Mild, Verified 01/16/24 12:15) Unknown amoxicillin Allergy (Unknown, Verified 01/16/24 12:15) Throat swelling azithromycin [AZITHROMYCIN] Allergy (Unknown, Verified 01/16/24 12:15) Bloody Diarrhea cefuroxime [CEFUROXIME] Allergy (Unknown, Verified 01/16/24 12:15) Angioedema ciprofloxacin [From Cipro] Allergy (Unknown, Verified 01/16/24 12:15) Unknown clindamycin [CLINDAMYCIN] Allergy (Unknown, Verified 01/16/24 12:15) Anaphylaxis erythromycin base Allergy (Unknown, Verified 01/16/24 12:15) Diarrhea iron Allergy (Unknown, Verified 01/16/24 12:15) Unknown levofloxacin [From Levaquin] Allergy (Unknown, Verified 01/16/24 12:15) Unknown peanut [Peanut] Allergy (Unknown, Verified 01/16/24 12:15) Itching penicillin V Allergy (Unknown, Verified 01/16/24 12:15) ears and face swell,throat swell Sulfa (Sulfonamide Antibiotics) [SULFA(SULFONAMIDE ANTIBIOTICS)] Allergy (Unknown, Verified 01/16/24 12:15) ANAPHYLAXIS, swelling body,welts Stnquyq-VGO-FrO Reductase Inhibitor Adverse Reaction (Severe, Verified 01/16/24 12:15) Muscle Pain aspirin Adverse Reaction (Intermediate, Verified 01/16/24 12:15) Swelling cefazolin Adverse Reaction (Mild, Verified 01/16/24 12:15) Anaphylaxis cheetos Allergy (Unknown, Uncoded 01/16/24 12:15) itchy, rash cranberry juice Allergy (Unknown, Uncoded 01/16/24 12:15) mouth itchy, bumps grape juice Allergy (Unknown, Uncoded 01/16/24 12:15) mouth itchy, bumps RAISIN Allergy (Unknown, Uncoded 01/16/24 12:15) Itching TURNIPS Allergy (Unknown, Uncoded 01/16/24 12:15) Unknown Plavix/clopidogrel Adverse Reaction (Intermediate, Uncoded 01/16/24 12:15) Fatigued, dizziness, lightheadedness Do you need a note to return to daycare/school/sports/work: No HPI HPI Comments History of Present Illness Details 58 y/o female patient who presents to [facility] with c/o left shoulder pain since . Reports tingling and numbness. Pt had Open Heart surgery ~ a year ago, and believes this is causing the shoulder pain. Denies recent trauma or injury to the shoulder. [facility] Medical History CAD (coronary artery disease) IBS (irritable bowel syndrome) Exocrine pancreatic insufficiency Lichen sclerosus Cough Bilateral knee pain Rectal prolapse Pre-op examination Small intestinal bacterial overgrowth Appendicitis Kidney stone Carpal tunnel syndrome Right shoulder injury Vertigo Chronic headaches Diverticulosis Fibromyalgia Depression Surgical History H/O uterosacral colpopexy H/O breast surgery S/P triple vessel bypass History of endometrial ablation History of esophagogastroduodenoscopy (EGD) Hx of colonoscopy Hx of carpal tunnel repair (~07/2019) Hx of rotator cuff surgery Hx of shoulder surgery Hx of appendectomy Hx of cholecystectomy Family History Father Myocardial infarction, Onset Age: 46 Mother Congestive heart failure Stomach problems Stomach ulcer Anxiety and depression Myocardial infarction, Onset Age: 50 Mental health disorder Sister Heart problem Myocardial infarction, Onset Age: 59 Sister Afib Brother Throat cancer Lung cancer Social History Household Members: Family Housing: Apartment Alcohol intake: never Patient Tobacco Use Status: Former Tobacco user Tobacco use type: Cigarette Years Smoked: 30 +/- e-Cigarette/Vaping Use: Never Used Second Hand Smoke Exposure: No Advance Directives Date on File: 02/25/22 service: No Current occupational status: disabled 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 Cognitive needs: No Hearing needs: No Vision needs: Yes (Glasses) Female Reproductive History Menstrual Age of Menarche: 15 Review of Systems Const All systems reviewed & are unremarkable except as noted in HPI and below Physical Exam Vital Signs: Last Vital Signs Pulse 86 01/16/24 12:14 BP 110/72 01/16/24 12:14 Pulse Ox 96 01/16/24 12:14 Oxygen Delivery Method Room Air 01/16/24 12:14 BMI result Body Mass Index 39.1 Const General: cooperative and no acute distress Nutritional Appearance: obese Orientation/consciousness: patient oriented x3 Skin General skin exam: no rashes or lesions noted Neuro General: patient oriented x3, gait normal and moves all extremities Extrem Left upper extremity: shoulder/upper arm Details: inspection abnormal, tenderness Location: over the deltoid bursa and normal ROM; no swelling, no ecchymosis and no crepitus Psych Speech and movement: Normal speech and movement present Assessment & Plan Assessment & Plan (1) Left shoulder pain: Code(s): M25.512 - Pain in left shoulder Qualifiers: Chronicity: acute Qualified Code(s): M25.512 - Pain in left shoulder Plan: Recommended PT, but Patient declined. Patient declined Pain Management (reports allergy to Steroids). Acetaminophen gives her Liver failure. Declined Xrays today, since believes she does not have Fracture. Coding Level of Care Code Est Pt Level 3 (48357) Diagnoses Acute pain of left shoulder M25.512 Chronicity: acute Time Spent (min) 15
[2024-01-16 12:14] VITALS: BP 110/72; PULSE 86; O2SAT 96; BMI 39.1
== END 2024-01-16 12:55 | disposition home or self-care (01) ==
PROVIDERS: PCP Physician Assistant; Visit Provider Nurse Practitioner Family
DX: M25.512 Pain in left shoulder (principal)
CPT/HCPCS: 99213

== ENCOUNTER 2024-02-01 08:36 | Outpatient (REF) | payer MEDICARE, MEDICAID, SELFPAY ==
--- NOTE | ~2024-02-01 | XR_ITS ---
EXAMINATION: XR SHOULDER, LEFT CLINICAL INFORMATION: Left shoulder pain. COMPARISON: Left shoulder radiographs dated 11/14/2023. TECHNIQUE: AP external rotation, Grashey, scapular Y, and axillary views of the left shoulder. FINDINGS: No acute fracture or dislocation. Moderate acromioclavicular marginal osteophytes with small subacromial spurs, unchanged. Tiny glenohumeral marginal osteophytes, unchanged. No concerning lytic or blastic osseous lesion. No abnormal soft tissue calcification. Partially visualized sternal hardware and mediastinal surgical clips. XR/XR shoulder LT min 2V IMPRESSION: 1. Moderate acromioclavicular and mild glenohumeral osteoarthritis, unchanged. 2. Small subacromial spurs, unchanged. Electronically signed by: Carlos Jefferson MD 02/07/2024 12:14 PM EDT
[2024-02-01 10:28] LABS: Hematocrit 44.6 % (37.0-47.0); Hemoglobin 13.7 g/dl (12.0-16.0); Mean Corpuscular HGB Conc 30.7 g/dl (31.0-35.0); Mean Corpuscular Hemoglobin 25.2 pg (27.0-33.0); Mean Corpuscular Volume 82.1 fL (80.0-98.0); Mean Platelet Volume 10.3 fL (9.4-12.3); Platelet Count 397 X10*3/uL (160-400); Red Blood Count 5.43 X10*6/uL (4.20-5.50); Red Cell Distribution Width 16.1 % (11.0-16.0); White Blood Count 10.3 X10*3/uL (4.8-10.8)
[2024-02-01 10:56] LABS: Alanine Aminotransferase 28 U/L (0-31); Albumin Level 4.2 g/dL (3.5-5.0); Alkaline Phosphatase 131 U/L (39-117); Anion Gap 12 (12-20); Aspartate Amino Transferase 17 U/L (5-31); Bilirubin Total 0.4 mg/dL (0.0-1.0); Blood Urea Nitrogen 19 mg/dL (9-16); Carbon Dioxide 27 mmol/L (22-29); Chloride 105 mmol/L (96-108); Cholesterol 172 mg/dL (<200); Estimated Glomerular Filt Rate > 60; Glucose Fasting 111 mg/dL (60-99); HDL Cholesterol 40 mg/dL (>40); LDL Cholesterol Calculated 109 mg/dL (<100); Potassium 4.7 mmol/L (3.3-5.1); Sodium 139 mmol/L (135-145); Total Protein 7.8 g/dL (6.5-8.0); Triglycerides 118 mg/dL (<150)
== END 2024-02-01 08:37 | disposition home or self-care (01) ==
LOC: HO.XRAY 08:36
PROVIDERS: PCP Physician Assistant; Visit Provider Physician Assistant
DX: M25.512 Pain in left shoulder (principal); M77.8 Other enthesopathies, not elsewhere classified; I25.810 Atherosclerosis of coronary artery bypass graft(s) without angina pectoris
CPT/HCPCS: 36415; 73030; 80053; 80061; 85027

== ENCOUNTER 2024-02-05 08:47 | Outpatient (AMB) | payer MEDICARE, MEDICAID, SELFPAY ==
[2024-02-05 08:58] VITALS: BP 124/68; PULSE 84; O2SAT 98
--- NOTE | 2024-02-05 08:58 | A.OFFPC_ITS ---
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 Accompanied by: Self / Same As Patient Allergies calcium [Calcium] Allergy (Severe, Verified 02/05/24 09:07) HIVES doxycycline [Doxycycline] Allergy (Severe, Verified 02/05/24 09:07) FACIAL SWELLING,almost killed pt,inhouse for weakness,,incontinence?seizures Penicillins Allergy (Severe, Verified 02/05/24 09:07) Facial Swelling lactose Allergy (Mild, Verified 02/05/24 09:07) Unknown amoxicillin Allergy (Unknown, Verified 02/05/24 09:07) Throat swelling azithromycin [AZITHROMYCIN] Allergy (Unknown, Verified 02/05/24 09:07) Bloody Diarrhea cefuroxime [CEFUROXIME] Allergy (Unknown, Verified 02/05/24 09:07) Angioedema ciprofloxacin [From Cipro] Allergy (Unknown, Verified 02/05/24 09:07) Unknown clindamycin [CLINDAMYCIN] Allergy (Unknown, Verified 02/05/24 09:07) Anaphylaxis erythromycin base Allergy (Unknown, Verified 02/05/24 09:07) Diarrhea iron Allergy (Unknown, Verified 02/05/24 09:07) Unknown levofloxacin [From Levaquin] Allergy (Unknown, Verified 02/05/24 09:07) Unknown peanut [Peanut] Allergy (Unknown, Verified 02/05/24 09:07) Itching penicillin V Allergy (Unknown, Verified 02/05/24 09:07) ears and face swell,throat swell Sulfa (Sulfonamide Antibiotics) [SULFA(SULFONAMIDE ANTIBIOTICS)] Allergy (Unknown, Verified 02/05/24 09:07) ANAPHYLAXIS, swelling body,welts Qzglamg-DZI-NuE Reductase Inhibitor Adverse Reaction (Severe, Verified 02/05/24 09:07) Muscle Pain aspirin Adverse Reaction (Intermediate, Verified 02/05/24 09:07) Swelling cefazolin Adverse Reaction (Mild, Verified 02/05/24 09:07) Anaphylaxis cheetos Allergy (Unknown, Uncoded 02/05/24 09:07) itchy, rash cranberry juice Allergy (Unknown, Uncoded 02/05/24 09:07) mouth itchy, bumps grape juice Allergy (Unknown, Uncoded 02/05/24 09:07) mouth itchy, bumps RAISIN Allergy (Unknown, Uncoded 02/05/24 09:07) Itching TURNIPS Allergy (Unknown, Uncoded 02/05/24 09:07) Unknown Plavix/clopidogrel Adverse Reaction (Intermediate, Uncoded 02/05/24 09:07) Fatigued, dizziness, lightheadedness Medication List - Last Reconciled 02/05/24 by Angelo Tejada PA-C albuterol sulfate 2.5 mg (3 mL) inhalation Q6H PRN 15 days alirocumab (Praluent Pen) 75 mg subcut Q14D aspirin (Enteric Coated Aspirin) 81 mg PO DAILY betamethasone, augmented 0.05 % 1 appl topical DAILY 8 weeks budesonide 32 mcg/actuation 2 sprays intranasal BID 30 days capsaicin 0.1% (Arthritis Pain Relief (capsaicin)) 1 appl topical TID cholecalciferol (vitamin D3) 50 mcg PO DAILY lidocaine 5% 1 appl topical BID 30 days loratadine 10 mg PO DAILY miscellaneous medical supply 1 ea miscellaneous .nightly 99 days lciuimem-jlivhzpzo-HM 3.5-10,000-1 mg/mL-unit/mL-% 4 drps otic (ear) left TID 10 days omeprazole 20 mg PO DAILY 30 days riboflavin (vitamin B2) 50 mg PO DAILY 30 days Xopenex HFA 45 mcg/actuation (levalbuterol tartrate) 2 inhalations inhalation Q6H 30 days NS Tobacco use date assessed: 06/22/23 Dental Screening Dental Screen Date: 08/03/23 HPI 3mof\u HPI Details Patient is a 58-year-old female here today for follow-up visit Patient has a past medical history significant for coronary artery disease status post bypass, chronic sinusitis, asthma, irritable bowel syndrome, former smoker. Concern--> Report having left shoulder pain over the last several weeks. She denies any acute trauma to her left shoulder. Of note she does report getting up from couch using her left upper extremity as liver edge and felt a pop in her left shoulder. Most of her pain is located in the deltoid musculature region of her left shoulder Patient also reports she continues to have epigastric abdominal bloating and pain. At 1st she believe this was due to aspirin though has changed her has been to nightly used in now in enteric-coated formulation. She has use ejlb-atb-jyckrpv antacids though have not effective. He has not tried omeprazole given to her in the spring. .. Coronary artery disease: Continues to follow cardiology. Continues on enteric- coated aspirin. Believe this is causing some GI side effects. She is now doing Praluent injections. Otherwise most recent lipid panel suboptimal control over LDL She continues to have pain over her sternum, recent x-ray shows stable appearance of the sternum. Pain thought to be due to fibromyalgia .. Asthma- has been fairly well controlled with p.r.n. use of her Xopenex. Laboratory Tests 08/03/23 08/07/23 11/14/23 09:40 11:43 08:51 RBC Hgb 12.7 Creatinine 0.89 Fasting Glucose Cholesterol 175 LDL Cholesterol, C alc 70 119 H 02/01/24 09:16 RBC 5.43 Hgb 13.7 Creatinine 0.92 Fasting Glucose 111 H Cholesterol 172 LDL Cholesterol, C alc 109 H [facility] Medical History CAD (coronary artery disease) IBS (irritable bowel syndrome) Exocrine pancreatic insufficiency Lichen sclerosus Cough Bilateral knee pain Rectal prolapse Pre-op examination Small intestinal bacterial overgrowth Appendicitis Kidney stone Carpal tunnel syndrome Right shoulder injury Vertigo Chronic headaches Diverticulosis Fibromyalgia Depression Surgical History H/O uterosacral colpopexy H/O breast surgery S/P triple vessel bypass History of endometrial ablation History of esophagogastroduodenoscopy (EGD) Hx of colonoscopy Hx of carpal tunnel repair (~07/2019) Hx of rotator cuff surgery Hx of shoulder surgery Hx of appendectomy Hx of cholecystectomy Family History Father Myocardial infarction, Onset Age: 46 Mother Congestive heart failure Stomach problems Stomach ulcer Anxiety and depression Myocardial infarction, Onset Age: 50 Mental health disorder Sister Heart problem Myocardial infarction, Onset Age: 59 Sister Afib Brother Throat cancer Lung cancer Social History Household Members: Family Housing: Apartment Alcohol intake: never Patient Tobacco Use Status: Former Tobacco user Tobacco use type: Cigarette Years Smoked: 30 +/- e-Cigarette/Vaping Use: Never Used Second Hand Smoke Exposure: No Advance Directives Date on File: 02/25/22 service: No Current occupational status: disabled 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 1. Little interest or pleasure in doing things: nearly every day 2. Feeling down, depressed, or hopeless: nearly every day 3. Trouble falling or staying asleep, or sleeping too much: nearly every day 4. Feeling tired or having little energy: nearly every day 5. Poor appetite or overeating: nearly every day 6. Feeling bad about yourself - or that you are a failure or have let yourself or your family down: nearly every day 7. Trouble concentrating on things, such as reading the newspaper or watching television: nearly every day 8. Moving or speaking so slowly that other people could have noticed. Or the opposite - being so fidgety or restless that you have been moving around a lot more than usual: not at all 9. Thoughts that you would be better off or of hurting yourself in some way: not at all Total score: 21 Depression Screening Interpretation: Positive Depression Screening Follow-up: Existing condition and Declines treatment Depression Screening Done: Yes 84052 - PHQ-9 Billing: Yes Source: Developed by Drs. Jeronimo Najera, Kike Steinberg and colleagues, with an educational melo from [employer]. Thrive Questionnaire Date Thrive assessed: 06/22/23 AUDIT C Alcohol Use Questionnaire (AUDIT-C) 1. How often do you have a drink containing alcohol?: Never Total Score: 0 JOHANNY-7 AMB Questionnaire JOHANNY-7 Date JOHANNY - 7 assessed: 06/22/23 Source: Developed by Drs. Jeronimo Najera, Kike Steinberg and colleagues, with an educational melo from [employer]. Review of Systems Const Denies headache(s) Eyes Denies loss of vision ENT Denies vertigo, Denies dizziness, Denies headache(s) and Denies sore throat Card Denies chest pain, Denies leg edema and Denies lightheadedness Resp Denies cough, Denies hemoptysis and Denies wheezing GI Denies abdominal pain, Denies melena, Denies constipation, Denies diarrhea and Denies vomiting Denies urinary frequency, Denies dysuria and Denies urinary urgency Musc Denies arthralgias, Denies joint swelling, Denies numbness and Denies tingling Neuro Denies Abnormal speech present, Denies behavioral changes, Denies vertigo, Denies dizziness, Denies headache(s), Denies loss of vision, Denies memory loss, Denies numbness and Denies tingling Psych Denies anxiety, Denies behavioral changes, Denies depression, Denies memory loss and Denies panic attacks Elpidio/Lymph Denies easy bleeding and Denies easy bruising Aller/Immun Denies wheezing Physical exam (Primary Care) Vital Signs: Last Vital Signs Pulse 84 02/05/24 08:58 BP 124/68 02/05/24 08:58 Pulse Ox 98 02/05/24 08:58 Oxygen Delivery Method Room Air 02/05/24 08:58 Tobacco/Smoking Status: Tobacco use Status Tobacco use date assessed 06/22/23 02/05/24 09:03 Patient Tobacco Use Status Former Tobacco user 02/05/24 09:03 Tobacco use type Cigarette 02/05/24 09:03 e-Cigarette/Vaping Use Never Used 02/05/24 09:03 PHQ-9: PHQ-9 Score PHQ-9: Total score 21 02/05/24 09:08 Depression Screening Interpretation: Positive Depression Screening Follow-up: Existing condition and Declines treatment Thrive Assessment: Date of Thrive Assessment Date Thrive assessed 06/22/23 02/05/24 09:03 Const General: healthy appearing, no acute distress, alert and awake Nutritional Appearance: well nourished Orientation/consciousness: oriented to person, oriented to place and oriented to time HENMT Ears: TM's normal bilaterally General nose exam: Normal nasal mucous membranes and turbinates present Eyes Conjunctivae: conjunctivae normal Sclerae: sclerae normal Pupils: Equal, round and reactive pupils present Neck Neck: Yes no lymphadenopathy and Yes no JVD Thyroid: Thyroid normal Carotids: no bruits Resp Effort & Inspection: normal respiratory effort and not tachypneic Auscultation: no crackles, no rales, no rhonchi and no wheezes Cardio Rate: regular rate Rhythm: regular rhythm Heart sounds: no murmurs and normal S1 and S2 GI Palpation (GI): Soft to palpation, nontender, no hepatomegaly and no splenomegaly Auscultation: normal bowel sounds Skin General skin exam: no rashes or lesions noted and dry skin Neuro General: oriented to person, oriented to place and oriented to time Cranial nerves: Yes Equal, round and reactive pupils present Speech: No Abnormal speech present Gait exam (Neuro): Normal gait present Motor exam (neuro): no tremor noted Extrem Other: LEFT SHOULDER: SOME LIMITED RANGE OF MOTION NOTED, MOST OF HER PAIN AND TENDERNESS IS OVER THE DELTOID MUSCULAR REGION, NEGATIVE ODOM, NEGATIVE EMPTY CAN TEST Right upper extremity: full ROM Left upper extremity: ROM limited Right lower extremity: full ROM; no edema Left lower extremity: full ROM; no edema Psych Mental Status: mental status grossly normal Speech and movement: Normal speech and movement present Affect: normal affect Attitude: cooperative Thought process: Normal thought process present Assessment and Plan Assessment & Plan (1) CAD (coronary artery disease): Code(s): I25.10 - Atherosclerotic heart disease of [place] coronary artery without angina pectoris Qualifiers: Associated angina: without angina Coronary Disease-Associated Artery/[place] type: bypass graft [place] vs. 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 Unfortunately still has tenderness in her sternum due to her open heart surgery and complications of infection.. Continues on baby aspirin. Patient has not been able to tolerate statins. She is on Praluent injections to control her cholesterol. Most recent lipid panel showing suboptimal control over LDL. (2) GERD (gastroesophageal reflux disease): Code(s): K21.9 - Gastro-esophageal reflux disease without esophagitis Qualifiers: Esophagitis presence: esophagitis presence not specified Qualified Code(s): K21.9 - Gastro-esophageal reflux disease without esophagitis Plan: Has been suffering with GERD like symptoms that have been chronic. She is willing to start omeprazole as needed for signs symptoms of gastritis. (3) Asthma: Code(s): J45.909 - Unspecified asthma, uncomplicated Qualifiers: Asthma complication type: uncomplicated Asthma persistence: unspecified Asthma severity: moderate Qualified Code(s): J45.909 - Unspecified asthma, uncomplicated Plan: Patient reports asthma has been fairly well controlled, allergy seasons are always stuff. Does use nebulizer and levo albuterol as needed (4) Rotator cuff impingement syndrome of left shoulder: Code(s): M75.42 - Impingement syndrome of left shoulder Plan: Patient with a several week history of left shoulder pain and decreased range of motion. Most of her pain is in the deltoid musculature of her left shoulder causing her not to be able to raise her left upper extremity above her head. She has a left arm dominant which makes it difficult to do ADLs. She may benefit from formal physical therapy to help reduce pain and increase her range of motion. She can not recall an acute injury though did have an event where she felt a pop in her left Shoulder when getting up from a chair. Will send for CT of left shoulder to evaluate for any rotator cuff tear. Orders: Orders PT Evaluation and Treatment 02/05/24 M51.9 - Unspecified thoracic, thoracolumbar and lumbosacral intervertebral disc disorder, M75.42 - Impingement syndrome of left shoulder CT shoulder LT wo IV con 02/05/24 M75.42 - Impingement syndrome of left shoulder Medications: Refilled Xopenex HFA 45 mcg/actuation (levalbuterol tartrate) 2 inhalations inhalation Q6H 15 grams 6RF 30 days NS J45.909 - Unspecified asthma, uncomplicated omeprazole 20 mg PO DAILY 30 caps 1RF 30 days K21.9 - Gastro-esophageal reflux disease without esophagitis, R14.0 - Abdominal distension (gaseous) Patient Instructions: Goal: Blood pressure to remain below 140/90, LDL to be optimally below 70 Barriers: Adherence to physical activity and healthy eating habits Coding Level of Care Code Est Pt Level 4 (66607) Diagnoses Coronary artery disease involving coronary bypass graft of [place] heart without angina pectoris I25.810 Associated angina: without angina Coronary Disease-Associated Artery/Lesion type: bypass graft [place] vs. transplanted heart: [place] heart Gastroesophageal reflux disease, unspecified whether esophagitis present K21.9 Esophagitis presence: esophagitis presence not specified Moderate asthma without complication, unspecified whether persistent J45.909 Asthma complication type: uncomplicated Asthma persistence: unspecified Asthma severity: moderate Rotator cuff impingement syndrome of left shoulder M75.42
== END 2024-02-05 09:37 | disposition home or self-care (01) ==
PROVIDERS: PCP Physician Assistant; Visit Provider Physician Assistant
DX: I25.810 Atherosclerosis of coronary artery bypass graft(s) without angina pectoris (principal); K21.9 Gastro-esophageal reflux disease without esophagitis; J45.909 Unspecified asthma, uncomplicated; M75.42 Impingement syndrome of left shoulder
CPT/HCPCS: 99214

== ENCOUNTER 2024-02-29 07:35 | Outpatient (REF) | payer MEDICARE, MEDICAID, SELFPAY ==
--- NOTE | ~2024-02-29 | CT_ITS ---
EXAMINATION: CT SHOULDER WITHOUT CONTRAST, LEFT CLINICAL INFORMATION: Left shoulder pain and decreased range of motion. Impingement syndrome. Evaluate for rotator cuff tendon tear. COMPARISON: Left shoulder radiographs dated 02/21/2024. TECHNIQUE: Contiguous axial CT images of the left shoulder were obtained without contrast. Multiplanar reformats were provided and reviewed. This CT examination was performed using dose optimization techniques as appropriate, variously including the following: *Automated exposure control *Adjustment of mA and/or kV according to patient size (this includes techniques or standardized protocols for targeted exams where dose is matched to indication/reason for exam; i.e. extremities or head) *Use of iterative reconstruction technique. DOSE: 417 mGycm. FINDINGS: No acute fracture or dislocation. Humeral head well seated within the glenoid. Mild glenohumeral joint space narrowing with tiny marginal osteophytes. Moderate acromioclavicular joint space narrowing with marginal osteophytes. No subacromial spurs. No concerning lytic or blastic osseous lesion. No evidence of humeral head avascular necrosis. The visualized left lung is clear. Partially visualized post-CABG changes. No soft tissue mass or fluid collection. No axillary lymphadenopathy. No large glenohumeral joint effusion. Grossly intact rotator cuff tendons. No complete tendon tear or tendon retraction. Evaluation somewhat limited on CT examination. No muscle atrophy. CT/CT shoulder LT wo IV con IMPRESSION: 1. No acute fracture or dislocation. 2. Mild glenohumeral and moderate AC joint osteoarthritis. 3. Grossly intact rotator cuff tendons. No muscle atrophy. Electronically signed by: Carlos Jefferson MD 03/05/2024 02:17 PM EDT
== END 2024-02-29 07:36 | disposition home or self-care (01) ==
LOC: HO.CT 07:35
PROVIDERS: PCP Physician Assistant; Visit Provider Physician Assistant
DX: M75.42 Impingement syndrome of left shoulder (principal)
CPT/HCPCS: 73200

== ENCOUNTER 2024-03-08 08:44 | Outpatient (RCR) | payer MEDICARE, MEDICAID, SELFPAY ==
--- NOTE | 2024-05-03 09:34 | MHC.PT.DC ---
[facility] [place] Office [place] Office [place] [facility] [address] Peyman Hernandez [address] [phone] F: [phone] F: [phone] F: [phone] F: [phone] Physical Therapy Discharge Report Diagnosis: CHRONIC LOW BACK PAIN (KP) Date of Surgery: Date of Evaluation: 03/08/24 Date of Discharge: 03/14/24 Treatments to Date: 1 Cancellations to Date: 0 No Shows to Date: 0 Discharge Status: Patient Elected to Stop Visit Non-compliance Discharge Summary: Pt attended initial eval only, cancelled x 2 due to illness then no showed x 2 and is DCed per department policy Electronically signed by: Albertina Miller PT DPT Please sign and return to therapist. Thank you for your referral.
== END 2024-05-03 09:33 | disposition home or self-care (01) ==
LOC: HO.PT 08:44
PROVIDERS: PCP Physician Assistant; Visit Provider Physician Assistant
DX: M51.9 Unspecified thoracic, thoracolumbar and lumbosacral intervertebral disc disorder (principal); M75.42 Impingement syndrome of left shoulder
CPT/HCPCS: 97110; 97163; 97535

== ENCOUNTER 2024-03-15 08:57 | Outpatient (AMB) | payer MEDICARE, MEDICAID, SELFPAY ==
--- NOTE | 2024-03-15 08:59 | A.OFFVIS_ITS ---
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 CT scan done. Patient reports her pain is a little lower than her shoulder and states the pain radiates down to her middle finger. Pt states she has pain especially when lifting her arm. Pt states her pain is usually a 10 on the 1-10 pain scale. Pt denies any previous surgeries or injections. Pt states ever since she had her open heart surgery in 2022 that is when the pain started. Allergies calcium [Calcium] Allergy (Severe, Verified 03/15/24 09:00) HIVES doxycycline [Doxycycline] Allergy (Severe, Verified 03/15/24 09:00) FACIAL SWELLING,almost killed pt,inhouse for weakness,,incontinence?seizures Penicillins Allergy (Severe, Verified 03/15/24 09:00) Facial Swelling lactose Allergy (Mild, Verified 03/15/24 09:00) Unknown amoxicillin Allergy (Unknown, Verified 03/15/24 09:00) Throat swelling azithromycin [AZITHROMYCIN] Allergy (Unknown, Verified 03/15/24 09:00) Bloody Diarrhea cefuroxime [CEFUROXIME] Allergy (Unknown, Verified 03/15/24 09:00) Angioedema ciprofloxacin [From Cipro] Allergy (Unknown, Verified 03/15/24 09:00) Unknown clindamycin [CLINDAMYCIN] Allergy (Unknown, Verified 03/15/24 09:00) Anaphylaxis erythromycin base Allergy (Unknown, Verified 03/15/24 09:00) Diarrhea iron Allergy (Unknown, Verified 03/15/24 09:00) Unknown levofloxacin [From Levaquin] Allergy (Unknown, Verified 03/15/24 09:00) Unknown peanut [Peanut] Allergy (Unknown, Verified 03/15/24 09:00) Itching penicillin V Allergy (Unknown, Verified 03/15/24 09:00) ears and face swell,throat swell Sulfa (Sulfonamide Antibiotics) [SULFA(SULFONAMIDE ANTIBIOTICS)] Allergy (Unknown, Verified 03/15/24 09:00) ANAPHYLAXIS, swelling body,welts Nyvhrqo-GNR-EdZ Reductase Inhibitor Adverse Reaction (Severe, Verified 03/15/24 09:00) Muscle Pain aspirin Adverse Reaction (Intermediate, Verified 03/15/24 09:00) Swelling cefazolin Adverse Reaction (Mild, Verified 03/15/24 09:00) Anaphylaxis cheetos Allergy (Unknown, Uncoded 03/15/24 09:00) itchy, rash cranberry juice Allergy (Unknown, Uncoded 03/15/24 09:00) mouth itchy, bumps grape juice Allergy (Unknown, Uncoded 03/15/24 09:00) mouth itchy, bumps RAISIN Allergy (Unknown, Uncoded 03/15/24 09:00) Itching TURNIPS Allergy (Unknown, Uncoded 03/15/24 09:00) Unknown Plavix/clopidogrel Adverse Reaction (Intermediate, Uncoded 03/15/24 09:00) Fatigued, dizziness, lightheadedness Medication List - Last Reconciled 03/15/24 by Fede Hugo PA-C albuterol sulfate 2.5 mg (3 mL) inhalation Q6H PRN 15 days alirocumab (Praluent Pen) 75 mg subcut Q14D aspirin (Enteric Coated Aspirin) 81 mg PO DAILY betamethasone, augmented 0.05 % 1 appl topical DAILY 8 weeks budesonide 32 mcg/actuation 2 sprays intranasal BID 30 days capsaicin 0.1% (Arthritis Pain Relief (capsaicin)) 1 appl topical TID cholecalciferol (vitamin D3) 50 mcg PO DAILY lidocaine 5% 1 appl topical BID 30 days loratadine 10 mg PO DAILY miscellaneous medical supply 1 ea miscellaneous .nightly 99 days lcqfuxaw-pzyyrebnj-JZ 3.5-10,000-1 mg/mL-unit/mL-% 4 drps otic (ear) left TID 10 days riboflavin (vitamin B2) 50 mg PO DAILY 30 days Xopenex HFA 45 mcg/actuation (levalbuterol tartrate) 2 inhalations inhalation Q6H 30 days NS HPI 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 She reports her pain started after her open- heart surgery in 2022. She states she has pain in her shoulder that radiates down to her middle finger. She rates the pain as 10 on the scale of 0-10. Her pain is aggravated with lifting her arm. She denies any surgeries or injections in the past. FORMERLY [facility] Medical History CAD (coronary artery disease) IBS (irritable bowel syndrome) Exocrine pancreatic insufficiency Lichen sclerosus Cough Bilateral knee pain Rectal prolapse Pre-op examination Small intestinal bacterial overgrowth Appendicitis Kidney stone Carpal tunnel syndrome Right shoulder injury Vertigo Chronic headaches Diverticulosis Fibromyalgia Depression Surgical History H/O uterosacral colpopexy H/O breast surgery S/P triple vessel bypass History of endometrial ablation History of esophagogastroduodenoscopy (EGD) Hx of colonoscopy Hx of carpal tunnel repair (~07/2019) Hx of rotator cuff surgery Hx of shoulder surgery Hx of appendectomy Hx of cholecystectomy Family History Father Myocardial infarction, Onset Age: 46 Mother Congestive heart failure Stomach problems Stomach ulcer Anxiety and depression Myocardial infarction, Onset Age: 50 Mental health disorder Sister Heart problem Myocardial infarction, Onset Age: 59 Sister Afib Brother Throat cancer Lung cancer Social History Household Members: Family Housing: Apartment Alcohol intake: never Patient Tobacco Use Status: Former Tobacco user Tobacco use type: Cigarette Years Smoked: 30 +/- e-Cigarette/Vaping Use: Never Used Second Hand Smoke Exposure: No Advance Directives Date on File: 02/25/22 service: No Current occupational status: disabled 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 Cognitive needs: No Hearing needs: No Vision needs: Yes (Glasses) Female Reproductive History Menstrual Age of Menarche: 15 Review of Systems Const All systems reviewed & are unremarkable except as noted in HPI and below Physical Exam Const General: cooperative, healthy appearing, comfortable, no acute distress, well developed and alert Orientation/consciousness: patient oriented x3 HEENT Head: Yes normal to inspection, Yes normocephalic and Yes atraumatic Eyes General: appearance normal, both eyes and all related structures Resp Effort & Inspection: normal respiratory effort and able to speak in complete sentences Cardio Rate: regular rate Peripheral pulses: Peripheral pulses 2+ throughout GI Palpation (GI): Soft to palpation Skin Lesions: no lesions Rashes: no rashes Neuro General: patient oriented x3 Extrem Other: Left shoulder: Normal to inspection. Tenderness over the bicipital groove and along the deltoid region of the shoulder. Forward flexion to 175, external rotation to 90, internal rotation to S1. 5/5 RTC strength. Positive Falk, O?Nahid?s and cross body abduction. NVI. Assessment & Plan Assessment & Plan (1) Rotator cuff impingement syndrome of left shoulder: Code(s): M75.42 - Impingement syndrome of left shoulder Category: Medical Plan We discussed options today which include physical therapy, cortisone injection and anti-inflammatories. She has significant history of allergies and has had adverse reactions with steroid therefore she will work on physical therapy which I did place an order in the office today. I did ordered a compound cream and if symptoms persist or worsen, patient will contact the office, otherwise follow-up as needed. Orders: Orders PT Evaluation and Treatment Today M75.42 - Impingement syndrome of left shoulder Patient Instructions: Scribed for Fede Hugo PA-C, by Esequiel Valderrama medical director, on 03/15/2024 at 9:15 AM EST.? I, Fede Hugo PA-C, have personally reviewed and agree with the information entered by the scribe. Coding Level of Care Code New Pt Level 3 (55558) Complex EM visit Add On G2211 Diagnoses Rotator cuff impingement syndrome of left shoulder M75.42
== END 2024-03-15 09:26 | disposition home or self-care (01) ==
PROVIDERS: PCP Physician Assistant; Visit Provider Physician Assistant
DX: M75.42 Impingement syndrome of left shoulder (principal)
CPT/HCPCS: 99203; G2211

== ENCOUNTER → 2024-03-15 08:57 | Outpatient (BNVA) | payer MEDICARE, MEDICAID, SELFPAY | PROVIDERS: PCP Physician Assistant; Visit Provider Physician Assistant | DX: M75.42 Impingement syndrome of left shoulder (principal) | CPT/HCPCS: 99202 ==

== ENCOUNTER 2024-04-08 09:49 | Emergency (ER) | payer MEDICARE, MEDICAID, SELFPAY ==
--- NOTE | ~2024-04-08 | XR_ITS ---
EXAMINATION: XR CHEST CLINICAL INFORMATION: Cough COMPARISON: Chest x-ray on 11/30/2023 TECHNIQUE: Frontal view of the chest was obtained. FINDINGS: The cardiac silhouette is normal. There is mild diffuse bronchial wall thickening. There are no areas of consolidation. There are no pleural effusions or pneumothoraces. The bones and soft tissues are unremarkable for the patient's age. XR/XR chest 1V IMPRESSION: Bronchial wall thickening may be infectious and/or inflammatory in etiology. Electronically signed by: Saundra Wilson MD 04/08/2024 12:36 PM [facility]
[2024-04-08 09:51] VITALS: BP 102/70; PULSE 104; O2SAT 98
[2024-04-08 10:03] VITALS: BP 97/76; PULSE 110; RESP 20; TEMP 37; O2SAT 95; BMI 39.1
[2024-04-08 10:24] LABS: MANUAL DIFF FLAG NO
[2024-04-08 10:33] LABS: Basophils Absolute Auto 0.1 X10*3/uL (0.0-0.2); Basophils Percent Auto 0.6 % (0-2); Eosinophils Absolute Auto 0.5 X10*3/uL (0.0-0.4); Eosinophils Percent Auto 4.5 % (0-4); Hematocrit 44.1 % (37.0-47.0); Hemoglobin 13.8 g/dl (12.0-16.0); Imm Gran Abs Auto 0.06 X10*3/uL (0.00-0.03); Imm Gran Pct Auto 0.6 % (0.0-0.4); Lymphocytes Absolute Auto 1.7 X10*3/uL (1.2-4.9); Mean Corpuscular HGB Conc 31.3 g/dl (31.0-35.0); Mean Corpuscular Hemoglobin 25.6 pg (27.0-33.0); Mean Corpuscular Volume 81.7 fL (80.0-98.0); Mean Platelet Volume 9.8 fL (9.4-12.3); Monocytes Absolute Auto 0.9 X10*3/uL (0.1-1.2); Monocytes Percent Auto 8.6 % (2-11); Neutrophils Absolute Auto 7.5 x10*3/uL (2.0-8.3); Neutrophils Percent Auto 69.7 % (45-73); Platelet Count 369 X10*3/uL (160-400); Red Cell Distribution Width 15.1 % (11.0-16.0); White Blood Count 10.8 X10*3/uL (4.8-10.8)
[2024-04-08 10:36] LABS: IDNOW Serial# 6674DD1D; Strep A Nucleic Acid Negative (Negative)
[2024-04-08 10:50] LABS: Alanine Aminotransferase 19 U/L (0-31); Alkaline Phosphatase 126 U/L (39-117); Anion Gap 15 (12-20); Aspartate Amino Transferase 22 U/L (5-31); Bilirubin Total 0.3 mg/dL (0.0-1.0); Blood Urea Nitrogen 14 mg/dL (9-16); Calcium 9.8 mg/dL (8.4-10.2); Carbon Dioxide 21 mmol/L (22-29); Chloride 107 mmol/L (96-108); Creatinine Clr Calc Pharmacy 67.4; Estimated Glomerular Filt Rate > 60; Glucose Random 115 mg/dL (60-115); Potassium 4.5 mmol/L (3.3-5.1); Sodium 138 mmol/L (135-145); Total Protein 7.9 g/dL (6.5-8.0)
[2024-04-08 11:11] LABS: Influenza A PCR NEGATIVE (Negative); Influenza B PCR NEGATIVE (Negative); Resp Syncy Virus RNA Qual PCR NEGATIVE (Negative); SARS COV2 PCR INHOUSE NEGATIVE (Negative)
== END 2024-04-08 14:27 | disposition left against medical advice (07) ==
PROVIDERS: Emergency Medicine; Emergency Provider Emergency Medicine
DX: J02.9 Acute pharyngitis, unspecified (principal); R51.9 Headache, unspecified; R05.9 Cough, unspecified; Z03.818 Encounter for observation for suspected exposure to other biological agents ruled out; Z79.899 Other long term (current) drug therapy
CPT/HCPCS: 0241U; 71045; 80053; 83735; 85025; 87651; 99281

== ENCOUNTER 2024-04-29 12:37 | Outpatient (AMB) | payer MEDICARE, MEDICAID, SELFPAY ==
--- NOTE | 2024-04-29 12:38 | A.OFFPC_ITS ---
Intake Visit Reasons: f/u CAD/ asthma - see comments Appointment Scheduler Required: No Accompanied by: Self / Same As Patient Allergies calcium [Calcium] Allergy (Severe, Verified 04/29/24 13:52) HIVES doxycycline [Doxycycline] Allergy (Severe, Verified 04/29/24 13:52) FACIAL SWELLING,almost killed pt,inhouse for weakness,,incontinence?seizures Penicillins Allergy (Severe, Verified 04/29/24 13:52) Facial Swelling lactose Allergy (Mild, Verified 04/29/24 13:52) Unknown amoxicillin Allergy (Unknown, Verified 04/29/24 13:52) Throat swelling azithromycin [AZITHROMYCIN] Allergy (Unknown, Verified 04/29/24 13:52) Bloody Diarrhea cefuroxime [CEFUROXIME] Allergy (Unknown, Verified 04/29/24 13:52) Angioedema ciprofloxacin [From Cipro] Allergy (Unknown, Verified 04/29/24 13:52) Unknown clindamycin [CLINDAMYCIN] Allergy (Unknown, Verified 04/29/24 13:52) Anaphylaxis erythromycin base Allergy (Unknown, Verified 04/29/24 13:52) Diarrhea iron Allergy (Unknown, Verified 04/29/24 13:52) Unknown levofloxacin [From Levaquin] Allergy (Unknown, Verified 04/29/24 13:52) Unknown peanut [Peanut] Allergy (Unknown, Verified 04/29/24 13:52) Itching penicillin V Allergy (Unknown, Verified 04/29/24 13:52) ears and face swell,throat swell Sulfa (Sulfonamide Antibiotics) [SULFA(SULFONAMIDE ANTIBIOTICS)] Allergy (Unknown, Verified 04/29/24 13:52) ANAPHYLAXIS, swelling body,welts Ffaenvr-WFV-SjH Reductase Inhibitor Adverse Reaction (Severe, Verified 04/29/24 13:52) Muscle Pain aspirin Adverse Reaction (Intermediate, Verified 04/29/24 13:52) Swelling cefazolin Adverse Reaction (Mild, Verified 04/29/24 13:52) Anaphylaxis cheetos Allergy (Unknown, Uncoded 04/29/24 13:52) itchy, rash cranberry juice Allergy (Unknown, Uncoded 04/29/24 13:52) mouth itchy, bumps grape juice Allergy (Unknown, Uncoded 04/29/24 13:52) mouth itchy, bumps RAISIN Allergy (Unknown, Uncoded 04/29/24 13:52) Itching TURNIPS Allergy (Unknown, Uncoded 04/29/24 13:52) Unknown Plavix/clopidogrel Adverse Reaction (Intermediate, Uncoded 04/29/24 13:52) Fatigued, dizziness, lightheadedness Medication List - Last Reconciled 04/29/24 by Angelo Tejada PA-C albuterol sulfate 2.5 mg (3 mL) inhalation Q6H PRN 15 days alirocumab (Praluent Pen) 75 mg subcut Q14D aspirin (Enteric Coated Aspirin) 81 mg PO DAILY betamethasone, augmented 0.05 % 1 appl topical DAILY 8 weeks budesonide 32 mcg/actuation 2 sprays intranasal BID 30 days capsaicin 0.1% (Arthritis Pain Relief (capsaicin)) 1 appl topical TID cholecalciferol (vitamin D3) 50 mcg PO DAILY lidocaine 5% 1 appl topical BID 30 days loratadine 10 mg PO DAILY miscellaneous medical supply 1 ea miscellaneous .nightly 99 days unlwtvjy-wjwdkegkv-JN 3.5-10,000-1 mg/mL-unit/mL-% 4 drps otic (ear) left TID 10 days prednisone 10 mg PO DIRECTED 6 days riboflavin (vitamin B2) 50 mg PO DAILY 90 days Xopenex HFA 45 mcg/actuation (levalbuterol tartrate) 2 inhalations inhalation Q6H 30 days NS Tobacco use date assessed: 06/22/23 Dental Screening Dental Screen Date: 08/03/23 HPI f/u CAD/ asthma - see comments HPI Details Patient is a 59-year-old female here today for follow-up visit Patient has a past medical history significant for coronary artery disease status post bypass, chronic sinusitis, asthma, irritable bowel syndrome, former smoker. Concern--> Report having left shoulder pain over the last several months, had tried PT though could not tolerate due to her continues sternal pain secondary to her open heart surgery. Also she has noted a lump over her left lower extremity that she would like evaluated. She reports a lump is nontender though has been causing her some numbness and tingling. .. Coronary artery disease: Continues to follow cardiology. Continues on enteric- coated aspirin. Believe this is causing some GI side effects. She is doing Praluent injections. Otherwise most recent lipid panel suboptimal control over LDL though unfortunately has not been able to tolerate statin therapy. She does admit to dietary indiscretion as she feels she is not able to eat healthier due to financial reasons. She continues to have pain over her sternum, recent x-ray shows stable appearance of the sternum. Pain thought to be due to fibromyalgia .. Asthma- has been fairly well controlled with p.r.n. use of her Xopenex. Of note recently had a bronchitis flare to which she was treated with prednisone and linezolid. She continues to have a lingering cough. FORMERLY [facility], [facility] Medical History CAD (coronary artery disease) IBS (irritable bowel syndrome) Exocrine pancreatic insufficiency Lichen sclerosus Cough Bilateral knee pain Rectal prolapse Pre-op examination Small intestinal bacterial overgrowth Appendicitis Kidney stone Carpal tunnel syndrome Right shoulder injury Vertigo Chronic headaches Diverticulosis Fibromyalgia Depression Surgical History H/O uterosacral colpopexy H/O breast surgery S/P triple vessel bypass History of endometrial ablation History of esophagogastroduodenoscopy (EGD) Hx of colonoscopy Hx of carpal tunnel repair (~07/2019) Hx of rotator cuff surgery Hx of shoulder surgery Hx of appendectomy Hx of cholecystectomy Family History Father Myocardial infarction, Onset Age: 46 Mother Congestive heart failure Stomach problems Stomach ulcer Anxiety and depression Myocardial infarction, Onset Age: 50 Mental health disorder Sister Heart problem Myocardial infarction, Onset Age: 59 Sister Afib Brother Throat cancer Lung cancer Social History Household Members: Family Housing: Apartment Alcohol intake: never Patient Tobacco Use Status: Former Tobacco user Tobacco use type: Cigarette Years Smoked: 30 +/- e-Cigarette/Vaping Use: Never Used Second Hand Smoke Exposure: No Advance Directives Date on File: 02/25/22 service: No Current occupational status: disabled 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 Jeronimo Najera, Lyly Triplett, Kike Nuñez and colleagues, with an educational melo from [employer]. Review of Systems Const Denies headache(s) Eyes Denies loss of vision ENT Denies vertigo, Denies dizziness, Denies headache(s) and Denies sore throat Card Denies chest pain, Denies leg edema and Denies lightheadedness Resp Reports cough, Denies hemoptysis and Denies wheezing GI Denies abdominal pain, Denies melena, Denies constipation, Denies diarrhea and Denies vomiting Denies urinary frequency, Denies dysuria and Denies urinary urgency Musc Details: + left shoulder pain and reduced range of motion Denies arthralgias, Denies joint swelling, Denies numbness and Denies tingling Neuro Denies behavioral changes, Denies vertigo, Denies dizziness, Denies headache(s), Denies loss of vision, Denies memory loss, Denies numbness and Denies tingling Psych Denies anxiety, Denies behavioral changes, Denies depression, Denies memory loss and Denies panic attacks Elpidio/Lymph Denies easy bleeding and Denies easy bruising Aller/Immun Denies wheezing Physical exam (Primary Care) Tobacco/Smoking Status: Tobacco use Status Tobacco use date assessed 06/22/23 04/29/24 12:39 Patient Tobacco Use Status Former Tobacco user 04/29/24 12:39 Tobacco use type Cigarette 04/29/24 12:39 e-Cigarette/Vaping Use Never Used 04/29/24 12:39 Thrive Assessment: Date of Thrive Assessment Date Thrive assessed 06/22/23 04/29/24 12:39 Telehealth Telehealth Telehealth Platform: Telephone Location of provider rendering services: practice address Location of patient: address on file Patient Identification confirmed using: Name, : Yes Telehealth method: video Patient verbally consented to treatment: Yes Patient verbally consented to billing insurance company: Yes Patient informed of any privacy concerns related to visit: Yes Coding Level of Care Code Tele Est Pt Level 4 (22982) Diagnoses Left shoulder tendinitis M77.8 Coronary artery disease involving coronary bypass graft of knik heart without angina pectoris I25.810 Associated angina: without angina Coronary Disease-Associated Artery/Lesion type: bypass graft [place] vs. transplanted heart: knik heart Lump of skin of left lower extremity R22.42 Assessment & Plan Assessment & Plan (1) Left shoulder tendinitis: Code(s): M77.8 - Other enthesopathies, not elsewhere classified Category: Medical Plan: Patient unable to tolerate physical therapy. Has seen Orthopedics though is not willing to do injection as she has had reactions to cortisone in the past. CT of shoulder showing moderate AC arthritis. (2) CAD (coronary artery disease): Code(s): I25.10 - Atherosclerotic heart disease of knik coronary artery without angina pectoris Category: Medical Qualifiers: Associated angina: without angina Coronary Disease-Associated Artery/Lesion type: bypass graft [place] vs. transplanted heart: knik heart Qualified Code(s): I25.810 - Atherosclerosis of coronary artery bypass graft(s) without angina pectoris Plan: Most recent lipid panel showing suboptimally control over LDL at 109. She continues with the use of Praluent injection. She admits to dietary indiscretion as she has financial issues eating healthy . (3) Lump of skin of left lower extremity: Code(s): R22.42 - Localized swelling, mass and lump, left lower limb Category: Medical Plan: Has noted a lump over her left lower extremity that she would like evaluated. She reports a lump is nontender though has been causing her some numbness and tingling. Patient interested in an ultrasound Orders: Orders Lipid Panel 04/29/24 I25.810 - Atherosclerosis of coronary artery bypass graft(s) without angina pectoris Comprehensive [place]. Panel Fast 04/29/24 I25.810 - Atherosclerosis of coronary artery bypass graft(s) without angina pectoris Complete Blood Count no Diff 04/29/24 D50.9 - Iron deficiency anemia, unspecified US extremity nonvascular flores 04/29/24 R22.42 - Localized swelling, mass and lump, left lower limb Medications: New prednisone Take 3 tablets x2 days, 2 tablets x2 days, 1 tablet x2 days 5 mg PO DIRECTED 12 tabs 0RF 6 days J40 - Bronchitis, not specified as acute or chronic Discontinued prednisone Take 3 tablets x2 days, 2 tablets x2 days, 1 tablet x2 days Discontinued Reason: Duplicate 10 mg PO DIRECTED 6 days 12 tabs 0RF J40 - Bronchitis, not specified as acute or chronic
== END 2024-04-29 16:25 | disposition home or self-care (01) ==
LOC: HO.HMCH 12:37
PROVIDERS: Visit Provider Physician Assistant
DX: I25.810 Atherosclerosis of coronary artery bypass graft(s) without angina pectoris (principal); M77.8 Other enthesopathies, not elsewhere classified; R22.42 Localized swelling, mass and lump, left lower limb

== ENCOUNTER → 2024-04-29 12:37 | Outpatient (BNVA) | payer MEDICARE, MEDICAID, SELFPAY | PROVIDERS: Visit Provider Physician Assistant ==

== ENCOUNTER 2024-05-14 12:39 | Outpatient (REF) | payer MEDICARE, MEDICAID, SELFPAY | END 2024-05-14 12:40 | disposition home or self-care (01) | LOC: HO.US 12:39 | PROVIDERS: Visit Provider Physician Assistant | DX: R22.42 Localized swelling, mass and lump, left lower limb (principal) | CPT/HCPCS: 76882 ==

== ENCOUNTER 2024-07-10 09:49 | Outpatient (AMB) | payer MEDICARE, MEDICAID, SELFPAY ==
[2024-07-10 09:55] VITALS: BP 108/76; PULSE 60
--- NOTE | 2024-07-10 09:55 | A.OFFVIS_ITS ---
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: No Accompanied by: Son Allergies calcium [Calcium] Allergy (Severe, Verified 04/29/24 13:52) HIVES doxycycline [Doxycycline] Allergy (Severe, Verified 04/29/24 13:52) FACIAL SWELLING,almost killed pt,inhouse for weakness,,incontinence?seizures Penicillins Allergy (Severe, Verified 04/29/24 13:52) Facial Swelling lactose Allergy (Mild, Verified 04/29/24 13:52) Unknown amoxicillin Allergy (Unknown, Verified 04/29/24 13:52) Throat swelling azithromycin [AZITHROMYCIN] Allergy (Unknown, Verified 04/29/24 13:52) Bloody Diarrhea cefuroxime [CEFUROXIME] Allergy (Unknown, Verified 04/29/24 13:52) Angioedema ciprofloxacin [From Cipro] Allergy (Unknown, Verified 04/29/24 13:52) Unknown clindamycin [CLINDAMYCIN] Allergy (Unknown, Verified 04/29/24 13:52) Anaphylaxis erythromycin base Allergy (Unknown, Verified 04/29/24 13:52) Diarrhea iron Allergy (Unknown, Verified 04/29/24 13:52) Unknown levofloxacin [From Levaquin] Allergy (Unknown, Verified 04/29/24 13:52) Unknown peanut [Peanut] Allergy (Unknown, Verified 04/29/24 13:52) Itching penicillin V Allergy (Unknown, Verified 04/29/24 13:52) ears and face swell,throat swell Sulfa (Sulfonamide Antibiotics) [SULFA(SULFONAMIDE ANTIBIOTICS)] Allergy (Unknown, Verified 04/29/24 13:52) ANAPHYLAXIS, swelling body,welts Opbkzri-MAP-XdG Reductase Inhibitor Adverse Reaction (Severe, Verified 04/29/24 13:52) Muscle Pain aspirin Adverse Reaction (Intermediate, Verified 04/29/24 13:52) Swelling cefazolin Adverse Reaction (Mild, Verified 04/29/24 13:52) Anaphylaxis cheetos Allergy (Unknown, Uncoded 04/29/24 13:52) itchy, rash cranberry juice Allergy (Unknown, Uncoded 04/29/24 13:52) mouth itchy, bumps grape juice Allergy (Unknown, Uncoded 04/29/24 13:52) mouth itchy, bumps RAISIN Allergy (Unknown, Uncoded 04/29/24 13:52) Itching TURNIPS Allergy (Unknown, Uncoded 04/29/24 13:52) Unknown Plavix/clopidogrel Adverse Reaction (Intermediate, Uncoded 04/29/24 13:52) Fatigued, dizziness, lightheadedness Medication List - Last Reconciled 07/10/24 by Peter Quinn MD albuterol sulfate 2.5 mg (3 mL) inhalation Q6H PRN 15 days alirocumab (Praluent Pen) 75 mg subcut Q14D aspirin (Enteric Coated Aspirin) 81 mg PO DAILY betamethasone, augmented 0.05 % 1 appl topical DAILY 8 weeks budesonide 32 mcg/actuation 2 sprays intranasal BID 30 days capsaicin 0.1% (Arthritis Pain Relief (capsaicin)) 1 appl topical TID cholecalciferol (vitamin D3) 50 mcg PO DAILY lidocaine 5% 1 appl topical BID 30 days loratadine 10 mg PO DAILY miscellaneous medical supply 1 ea miscellaneous .nightly 99 days prednisone 5 mg PO DIRECTED 6 days riboflavin (vitamin B2) 50 mg PO DAILY 90 days Xopenex HFA 45 mcg/actuation (levalbuterol tartrate) 2 inhalations inhalation Q6H 30 days NS HPI Comments Details: Yomaira returns for follow-up. Previous patient of , but switched to me. In 2022, she was admitted for NSTEMI. Then underwent cardiac catheterization showing multivessel disease leading to bypass surgery. That was in turn complicated by sternal wound infection requiring debridement and she had wound VAC followed by antibiotics. Since that time, she has been having chest pain and has had CT scans but no overt findings on the same. I also discussed this directly with her cardiac surgeon as well -Dr. Patrick and he does not believe that there is anything else that needs to get done. He also stated to me that her pains could also be from flare-up of fibromyalgia. Patient still has pains across his chest, on the sternum, shoulders extra. Provoked by body movements. Otherwise, she has had low blood pressure issues and then beta-blockers were stopped. She also has intolerance statins. On Praluent. Some missed doses but she states she catches up within a few days. She also has intolerance to antiplatelet drugs. She states she can not take Plavix. With regard aspirin, she is on enteric-coated aspirin. [facility] Medical History CAD (coronary artery disease) IBS (irritable bowel syndrome) Exocrine pancreatic insufficiency Lichen sclerosus Cough Bilateral knee pain Rectal prolapse Pre-op examination Small intestinal bacterial overgrowth Appendicitis Kidney stone Carpal tunnel syndrome Right shoulder injury Vertigo Chronic headaches Diverticulosis Fibromyalgia Depression Surgical History H/O uterosacral colpopexy H/O breast surgery S/P triple vessel bypass History of endometrial ablation History of esophagogastroduodenoscopy (EGD) Hx of colonoscopy Hx of carpal tunnel repair (~07/2019) Hx of rotator cuff surgery Hx of shoulder surgery Hx of appendectomy Hx of cholecystectomy Family History Father Myocardial infarction, Onset Age: 46 Mother Congestive heart failure Stomach problems Stomach ulcer Anxiety and depression Myocardial infarction, Onset Age: 50 Mental health disorder Sister Heart problem Myocardial infarction, Onset Age: 59 Sister Afib Brother Throat cancer Lung cancer Social History Household Members: Family Housing: Apartment Alcohol intake: never Patient Tobacco Use Status: Former Tobacco user Tobacco use type: Cigarette Years Smoked: 30 +/- e-Cigarette/Vaping Use: Never Used Second Hand Smoke Exposure: No Advance Directives Date on File: 02/25/22 service: No Current occupational status: disabled 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 Cognitive needs: No Hearing needs: No Vision needs: Yes (Glasses) Female Reproductive History Menstrual Age of Menarche: 15 Review of Systems Const Denies chills, Denies fatigue, Denies fever(s), Denies weight gain and Denies weight loss ENT Denies dizziness Card Denies chest pain, Denies leg edema, Denies lightheadedness, Denies palpitations, Denies dyspnea on exertion, Denies orthopnea and Denies other Resp Denies cough and Denies dyspnea on exertion GI Denies hematochezia and Denies change in stool character Musc Denies abnormal gait, Denies muscle weakness, Denies numbness, Denies radiating pain into limb and Denies tingling Neuro Denies abnormal gait, Denies dizziness, Denies numbness and Denies tingling Endo Denies fatigue and Denies palpitations Physical Exam Vital Signs: Last Vital Signs Pulse 60 07/10/24 09:55 BP 108/76 07/10/24 09:55 Const General: comfortable and no acute distress Orientation/consciousness: patient oriented x3 HEENT Other: Unremarkable Head: Yes normal to inspection Neck Neck: Yes normal visual inspection Chest Chest palpation & inspection: normal inspection of the chest Resp Auscultation: clear to auscultation bilaterally Cardio Palpation: normal PMI Heart sounds: S1 normal heart sound present, S2 normal heart sound present, no gallops, no murmurs and no rubs GI Palpation (GI): Soft to palpation Back/Spine/Pelvis Other: unremarkable Skin General skin exam: no rashes or lesions noted Neuro General: patient oriented x3 Extrem General: Yes normal to inspection Psych Mental Status: mental status grossly normal Assessment & Plan Assessment & Plan (1) CAD (coronary artery disease): Code(s): I25.10 - Atherosclerotic heart disease of [place] coronary artery without angina pectoris Category: Medical Qualifiers: Associated angina: without angina Coronary Disease-Associated Artery/L esion type: bypass graft [place] vs. transplanted heart: [place] heart Qualified Code(s): I25.810 - Atherosclerosis of coronary artery bypass graft(s) without angina pectoris (2) S/P CABG (coronary artery bypass graft): Code(s): Z95.1 - Presence of aortocoronary bypass graft Category: Surgical (3) Sternum pain: Code(s): R07.89 - Other chest pain Category: Medical Plan Overall, she stable from cardiovascular standpoint and continue current regimen. Continue aspirin. History of statin intolerance and she is on Praluent but i rregular dosing. Advised her to be more compliant. Hence cholesterol somewhat up and down. Also advised her about dietary issues and avoid anything unhealthy. She understands that. With regard to pain issues, no specific recommendations. If continues to bother, then may see pain medicine but she does not want any injections either. She has seen ortho but preferred not to go to physical therapy as apparently that is making her pain worse. Hence no specific recommendations at this time. Hopefully with time, might improve. Total time spent including review of data, counseling, documentation, coordination of care-32 minutes. Coding Level of Care Code Est Pt Level 4 (32000) Complex EM visit Add On G2211 Diagnoses Coronary artery disease involving coronary bypass graft of [place] heart without angina pectoris I25.810 Associated angina: without angina Coronary Disease-Associated Artery/Lesion type: bypass graft [place] vs. transplanted heart: [place] heart S/P CABG (coronary artery bypass graft) Z95.1 Sternum pain R07.89
--- OUTSIDE RECORDS SUMMARY | 2024-07-10 11:24 | XMS_ITS | Clinical Summary ---
Author Organization [facility] Facility Address [address] [place] [id number] Care Team Providers Care Surveillance Camera Technician Name Role Phone Unavailable Primary Care Provider Unavailabl e Social History Tobacco Use Types Packs/Day Years Used Date Smoking Tobacco: Never Assessed Comments Unknown Sex and Gender Information Value Date Recorded Sex Assigned at Not on file Legal Sex Female 2:44 PM EDT Gender Identity Not on file Sexual Orientation Not on file Plan of Treatment Health Maintenance Due Date Last Done Comments Breast Cancer Screening 1965 Pneumococcal Vaccine: Pediat rics (0 to 5 Years) and At-Risk Patients (6 to 64 Years) (2 of 2 - PCV) 11/16/2007 11/15/2006 Colorectal Cancer Screening: Annual FOBT 2013 Colorectal Cancer Screening: Colonoscopy 2013 Colorectal Cancer Screening: Sigmoidoscopy 2013 Influenza Vaccine (#1) 2024 Hepatitis B Vaccine Aged Out No longe r eligible based on patient's age to complete this topic Insurance [place] Subscriber Plan / Payer (Ef fective 2022-Present) Name:Yomaira Dunn Relation to Subscriber:Self Name:Yomaira Dunn Payer ID:Not on file Group ID:Not on file Type:Not on file Address: [address] MED[place]ARE [place]ID [place] Member Subscriber Plan / Payer (Ef fective 2022-Present) Name:Yomaira Dunn Relation to Subscriber:Self Name:DunnYomaira solis Payer ID:Not on file Group ID:Not on file Type:Not on file Address: [place] [id number]
--- OUTSIDE RECORDS SUMMARY | 2024-07-10 11:24 | XMS_ITS | Clinical Summary ---
Author Organization [facility] Address [address] [place] [address] Care Team Providers Care Certified Nurse Midwife Name Role Phone Peri Joe PA-C Primary Care Provider [phone] Source Comments PLEASE NOTE, if this patient is a minor, it may be UNLAWFUL to discuss sensitive information that is contained in these records (such as FAMILY PLANNING, MENTAL HEALTH or SUBSTANCE ABUSE) with the minor patient's parent or other person without the patient's specific authorization.[facility] Allergies Active Allergy Reactions Criticality Noted Date Comments Azithromycin 05/05/2014 Calcium 05/20/2014 Clindamycin 05/05/2014 Doxycycline Other (See Comments) 05/20/2014 Numbness, Tingling or swelling of lips tongue Erythromycin 05/05/2014 Penicillins 05/05/2014 Sulfa (Sulfonamide Antibiotics) 05/05/2014 Medications ibuprofen (ADVIL,MOTRIN) 400 mg tablet 0 4 Active gabapentin (NEURONTIN) 100 mg capsuleIndicati ons:Migraines Take 1 Cap by mouth 3 (three) times daily. 90 Cap 3 5 Active psyllium (METAMUCIL) 0.52 gram capsuleIndicati ons:IBS (irritable bowel syndrome) Take 1 Cap by mouth 2 (two) times daily. Take with 8 ounces of liquid. 60 Cap 3 5 Active albuterol sulfate hfa 90 mcg/actuation inhalerIndicati ons:Hx of wheezing Inhale 2 Puffs into the lungs every 4 (four) hours as needed for shortness of breath or wheezing. 18 g 1 5 Active Active Problems Problem Noted Date Diagnosed Date Plantar fasciitis 03/24/2015 Overview (03/24/2015): Seen by Dr Merrill at [facility] on 03/04/2015: Xrays done which showed an insertional calcific calcaneal spur. Plan: Given a CAm walker boot because of walking with a limp. She will wear it for 3-4 weeks and transition to a regular sneaker with heel lift and begin some exercises for the achilles and calf. Recommend vascular to evaluate her for numbness and discoloration. Right shoulder pain 01/12/2015 Overview (07/07/2015): Saw Dr Bill Genao on 01/05/2015 for shoulder pain: Will obtain x rays and started on celebrex 200 mg daily. May need injection when follow up occurs. Pt seen at [facility]: on 02/16/2015: Given Mobic: referred for MRi of shoulder for possible rotator cuff tear. Seen 03/23/2015: Will obtain MRI due to increase complaint. consider injections. Seen By Dr Ambrose at [facility] on 06/23/2015: Pt has right shoulder rotator cuff tear with adhesive capsulitis. Recommended cortisone injections but declined. She had cortsione elsewhere and it did not benefit. PT failed. No mediations have given her benefit. Would recommend manipulation under anesthesia SAD/DCE with possible rotator cuff repair. Pre op instructions were discussed. All questions answered. Sprain of sacroiliac ligament 05/20/2014 Overview (05/20/2014): 05/2013 Allergic rhinitis 05/20/2014 Anal fissure 05/20/2014 Internal hemorrhoid 05/20/2014 S/P appendectomy 05/20/2014 Overview (05/20/2014): 11/2012 Axillary abscess 05/20/2014 Cyst of right breast 05/20/2014 Knee pain 05/20/2014 Overview (07/06/2015): Chronic pain: xray 02/18/2013: Minimal spurring in the patellofemoral compartment. Pt seen at [facility] on 06/24/2015: will obtain ortho evaluation for knee. IBS (irritable bowel syndrome) 05/05/2014 Overview (05/20/2014): EGD normal 2007. Duodenal biopsy normal. Colonic biopsy normal. Barium enema normal. Migraines 05/05/2014 Chronic low back pain 05/05/2014 Overview (02/24/2015): MRI w/o contrast done 06/23/2013 at [place] of lumbar spine: impression: at T9- T10 there is a small left paramedian /posterior disc herniation seen in the sagittal sequences. Mild ligamentous bulging and minor facet arthropathy of the lower lumbar spine as described. No focal nerve root compression. Xray done of lumbosacral spine done at [place] on 04/03/14: similar appearing mild degenerative changes. Xray done of lumbosacral spine with obliques done at on 02/18/13: mild degenerative changes. Multiple allergies 05/05/2014 Resolved Problems Problem Noted Date Diagnosed Date Resolved Date Bronchitis 05/05/2014 01/15/2021 Immunizations Name Administration Dates Next Due MENINGOCOCCAL VACCINE,CONJUG ATE (NON-INTERFACE) 01/15/2007 PNEUMOCOCCAL POLYSACCHARIDE PPV23 11/15/2006 Rabies - IM fibroblast culture 7,01/05/2007,12/29/2006,12/25,12/22/2006 Rabies Immune Globulin, Heat Treated 12/22/2006 Td(adult),2 Lf tetanus toxoid,preservative free 07/24/2003 Social History Tobacco Use Types Packs/Day Years Used Date Smoking Tobacco: Every Day Cigarettes Smokeless Tobacco: Current Alcohol Use Standard Drinks/Week Comments No 0 (1 standard drink = 0.6 oz pur e alcohol) Social Connections Answer Date Recorded Social Connections and Isolation 0 01/20/2019 Financial Resource Strain Answer Date R ecorded Financial Resource Strain 0 2018 Stress Answer Date Recorded Stress 0 01/20/2019 Physical Activity Answer Date Recorded Physical Activity 0 01/20/2019 Food Insecurity Answer Date Recorded Food 0 01/20/2019 Transportation Needs Answer Date Record ed Transportation 0 01/20/2019 Housing Stability Answer Date Recorded Housing 0 01/20/2019 Safety and Environment Answer Date Andre rded Safety 0 01/20/2019 Utilities Answer Date Recorded Utilities 0 01/20/2019 Employment Answer Date Recorded Employment 0 01/20/2019 Comments No Sex and Gender Information Value Date Recorded Sex Assigned at Not on file Legal Sex Female 6:37 AM PST Gender Identity Not on file Sexual Orientation Not on file Last Filed Vital Signs Vital Sign Reading Time Taken Comments Blood Pressure 120/71 11/20/2014 3:49 PM EDT Pulse 87 11/20/2014 3:49 PM EDT Temperature 36.7 ??C (98.1 ??F) 11/20/2014 3:49 PM ED T Respiratory Rate 21 11/20/2014 3:49 PM EDT Oxygen Saturation - - Inhaled Oxygen Concentration - - Weight 75.3 kg (165 lb 14.4 oz) 11/20/2014 3:49 PM EDT Height 167.6 cm (5' 6 ) 09/17/2014 4:06 PM EDT Body Mass Index 26.78 09/17/2014 4:06 PM EDT Plan of Treatment Not on file Insurance [employer] Care Teams Certified Nurse Midwife Relationship Specialty Start Date End Date Peri Joe PA-C [address] [place] [address] PCP - General 04/18/18
== END 2024-07-10 10:34 | disposition home or self-care (01) ==
PROVIDERS: PCP Physician Assistant; Visit Provider Internal Medicine
DX: I25.810 Atherosclerosis of coronary artery bypass graft(s) without angina pectoris (principal); Z95.1 Presence of aortocoronary bypass graft; R07.89 Other chest pain
CPT/HCPCS: 99214; G2211

== ENCOUNTER → 2024-07-10 09:49 | Outpatient (BNVA) | payer MEDICARE, MEDICAID, SELFPAY | PROVIDERS: PCP Physician Assistant; Visit Provider Internal Medicine | DX: I25.810 Atherosclerosis of coronary artery bypass graft(s) without angina pectoris (principal); R07.89 Other chest pain; Z95.1 Presence of aortocoronary bypass graft | CPT/HCPCS: 99212 ==

== ENCOUNTER 2024-07-29 13:47 | Outpatient (AMB) | payer MEDICARE, MEDICAID, SELFPAY ==
[2024-07-29 13:59] VITALS: BP 100/80; PULSE 107; TEMP 36.1; O2SAT 98
--- NOTE | 2024-07-29 13:59 | MHC.PC.OV ---
Vital Signs 07/29/24 13:59 Height 5 ft BMI Reason not done Patient refused/unable BP 100/80 Blood Pressure Location Lt brachial Position Sitting Pulse 107 H Pulse Source Pulse Oximeter Temp 96.9 F Temp Source Temporal Artery Scan Pulse Oximetry (%) 98 Oxygen Delivery Method Room Air Intake Visit Reasons: Follow-up coronary artery disease [employer] Supervisor Required: No Accompanied by: Daughter Allergies calcium [Calcium] Allergy (Severe, Verified 07/29/24 14:05) HIVES doxycycline [Doxycycline] Allergy (Severe, Verified 07/29/24 14:05) FACIAL SWELLING,almost killed pt,inhouse for weakness,,incontinence?seizures Penicillins Allergy (Severe, Verified 07/29/24 14:05) Facial Swelling lactose Allergy (Mild, Verified 07/29/24 14:05) Unknown amoxicillin Allergy (Unknown, Verified 07/29/24 14:05) Throat swelling azithromycin [AZITHROMYCIN] Allergy (Unknown, Verified 07/29/24 14:05) Bloody Diarrhea cefuroxime [CEFUROXIME] Allergy (Unknown, Verified 07/29/24 14:05) Angioedema ciprofloxacin [From Cipro] Allergy (Unknown, Verified 07/29/24 14:05) Unknown clindamycin [CLINDAMYCIN] Allergy (Unknown, Verified 07/29/24 14:05) Anaphylaxis erythromycin base Allergy (Unknown, Verified 07/29/24 14:05) Diarrhea iron Allergy (Unknown, Verified 07/29/24 14:05) Unknown levofloxacin [From Levaquin] Allergy (Unknown, Verified 07/29/24 14:05) Unknown peanut [Peanut] Allergy (Unknown, Verified 07/29/24 14:05) Itching penicillin V Allergy (Unknown, Verified 07/29/24 14:05) ears and face swell,throat swell Sulfa (Sulfonamide Antibiotics) [SULFA(SULFONAMIDE ANTIBIOTICS)] Allergy (Unknown, Verified 07/29/24 14:05) ANAPHYLAXIS, swelling body,welts Pjfizec-SHU-IhR Reductase Inhibitor Adverse Reaction (Severe, Verified 07/29/24 14:05) Muscle Pain aspirin Adverse Reaction (Intermediate, Verified 07/29/24 14:05) Swelling cefazolin Adverse Reaction (Mild, Verified 07/29/24 14:05) Anaphylaxis cheetos Allergy (Unknown, Uncoded 07/29/24 14:05) itchy, rash cranberry juice Allergy (Unknown, Uncoded 07/29/24 14:05) mouth itchy, bumps grape juice Allergy (Unknown, Uncoded 07/29/24 14:05) mouth itchy, bumps RAISIN Allergy (Unknown, Uncoded 07/29/24 14:05) Itching TURNIPS Allergy (Unknown, Uncoded 07/29/24 14:05) Unknown Plavix/clopidogrel Adverse Reaction (Intermediate, Uncoded 07/29/24 14:05) Fatigued, dizziness, lightheadedness Medication List - Last Reconciled 07/29/24 by Angelo Tejada PA-C albuterol sulfate 2.5 mg (3 mL) inhalation Q6H PRN 15 days alirocumab (Praluent Pen) 75 mg subcut Q14D aspirin (Enteric Coated Aspirin) 81 mg PO DAILY betamethasone, augmented 0.05 % 1 appl topical DAILY 8 weeks budesonide 32 mcg/actuation 2 sprays intranasal BID 30 days capsaicin 0.1% (Arthritis Pain Relief (capsaicin)) 1 appl topical TID cholecalciferol (vitamin D3) 50 mcg PO DAILY lidocaine 5% 1 appl topical BID 30 days loratadine 10 mg PO DAILY miscellaneous medical supply 1 ea miscellaneous .nightly 99 days prednisone 5 mg PO DIRECTED 6 days riboflavin (vitamin B2) 50 mg PO DAILY 90 days Xopenex HFA 45 mcg/actuation (levalbuterol tartrate) 2 inhalations inhalation Q6H 30 days NS Tobacco use date assessed: 07/29/24 Dental Screening Dental Screen Date: 07/29/24 Did you have a dental visit in the last 12 months?: Yes Did you have a dental problem in the last 6 months where you did not have access to dental care?: No Was dental information given to patient?: Patient has dentist HPI Follow-up coronary artery disease HPI Details Patient is a 59-year-old female here today for follow-up visit Patient has a past medical history significant for coronary artery disease status post bypass, chronic sinusitis, asthma, irritable bowel syndrome, former smoker. Concern--> patient reports having chronic dizziness and is concerned about her low blood pressure readings. Unfortunately did not get labs prior to today's visit. She has followed with Cardiology lost month. She admits to staying well hydrated. PLAN: Will evaluate labs, will reduce has been used to 3 times a week to see if side effect of aspirin his causing her dizziness .. Coronary artery disease: Continues to follow cardiology. Continues on enteric-coated aspirin. Believe this is causing some GI side effects. She is doing Praluent injections. Otherwise most recent lipid panel suboptimal control over LDL though unfortunately has not been able to tolerate statin therapy. She does admit to dietary indiscretion as she feels she is not able to eat healthier due to financial reasons. She continues to have pain over her sternum, recent x-ray shows stable appearance of the sternum. Pain thought to be due to fibromyalgia .. Asthma- has been fairly well controlled with p.r.n. use of her Xopenex. Of note recently had a bronchitis flare to which she was treated with prednisone and linezolid. She continues to have a lingering cough. [facility] Medical History CAD (coronary artery disease) IBS (irritable bowel syndrome) Exocrine pancreatic insufficiency Lichen sclerosus Cough Bilateral knee pain Rectal prolapse Pre-op examination Small intestinal bacterial overgrowth Appendicitis Kidney stone Carpal tunnel syndrome Right shoulder injury Vertigo Chronic headaches Diverticulosis Fibromyalgia Depression Surgical History H/O uterosacral colpopexy H/O breast surgery S/P triple vessel bypass History of endometrial ablation History of esophagogastroduodenoscopy (EGD) Hx of colonoscopy Hx of carpal tunnel repair (~07/2019) Hx of rotator cuff surgery Hx of shoulder surgery Hx of appendectomy Hx of cholecystectomy Family History Father Myocardial infarction, Onset Age: 46 Mother Congestive heart failure Stomach problems Stomach ulcer Anxiety and depression Myocardial infarction, Onset Age: 50 Mental health disorder Sister Heart problem Myocardial infarction, Onset Age: 59 Sister Afib Brother Throat cancer Lung cancer Social History Household Members: Family Housing: Apartment Alcohol intake: never Patient Tobacco Use Status: Former Tobacco user Tobacco use type: Cigarette Years Smoked: 30 +/- e-Cigarette/Vaping Use: Never Used Second Hand Smoke Exposure: No Advance Directives Date on File: 02/25/22 service: No Current occupational status: disabled 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 1. Little interest or pleasure in doing things: nearly every day 2. Feeling down, depressed, or hopeless: nearly every day 3. Trouble falling or staying asleep, or sleeping too much: nearly every day 4. Feeling tired or having little energy: nearly every day 5. Poor appetite or overeating: nearly every day 6. Feeling bad about yourself - or that you are a failure or have let yourself or your family down: nearly every day 7. Trouble concentrating on things, such as reading the newspaper or watching television: nearly every day 8. Moving or speaking so slowly that other people could have noticed. Or the opposite - being so fidgety or restless that you have been moving around a lot more than usual: not at all 9. Thoughts that you would be better off or of hurting yourself in some way: not at all Total score: 21 Depression Screening Interpretation: Positive Depression Screening Follow-up: Existing condition and Declines treatment Depression Screening Done: Yes 46837 - PHQ-9 Billing: Yes Source: Developed by Drs. Jeronimo Najera, Lyly Triplett, Kike Nuñez and colleagues, with an educational melo from [employer]. Thrive Questionnaire Date Thrive assessed: 07/29/24 I am a: Patient What is your living situation today?: I have a steady place to live Within the past 12 months, did the food you bought not last and you didn't have the money to get more?: Never true Within the past 12 months, did you worry whether your food would run out before you got money to buy more?: Never true Do you have trouble paying for medicines?: No Do you have trouble getting transportation to medical appointments?: No Do you have trouble paying your heating and electricity bill?: No Do you have trouble taking care of your child, family member or friend?: No Do you have trouble with day-to-day activities such as bathing, preparing meals, shopping, managing finances, etc.?: No Are you currently unemployed and looking for a job?: No Are you interested in more education?: No Please select the resources that you would like help with: None Currently or been in a relationship where the following occur: No concerns reported THRIVE Score: 0 AUDIT C Alcohol Use Questionnaire (AUDIT-C) 1. How often do you have a drink containing alcohol?: Never 3. How often do you have six or more drinks on one occasion?: Never Total Score: 0 JOHANNY-7 AMB Questionnaire JOHANNY-7 Date JOHANNY - 7 assessed: 07/29/24 Feeling nervous, anxious, or on edge: 3 = Nearly every day Not being able to stop or control worryin = Nearly every day Worrying too much about different things: 3 = Nearly every day Trouble relaxin = Nearly every day Being so restless that it is hard to sit still: 3 = Nearly every day Becoming easily annoyed or irritable: 3 = Nearly every day Feeling afraid as if something awful might happen: 3 = Nearly every day Total JOHANNY-7 score (0-4 normal; 5-9 mild; 10-14 moderate; 15-21 severe): 21 Source: Developed by Drs. Jeronimo Najera, Lyly Triplett, Kike Nuñez and colleagues, with an educational melo from [employer]. JOHANNY-7 Assessment Billing JOHANNY-7 Assessment Tool: JOHANNY-7 Assessment 46210 Review of Systems Const Denies headache(s) Eyes Denies loss of vision ENT Denies vertigo, Reports dizziness, Denies headache(s) and Denies sore throat Card Denies chest pain, Denies leg edema and Denies lightheadedness Resp Denies cough, Denies hemoptysis and Denies wheezing GI Denies abdominal pain, Denies melena, Denies constipation, Denies diarrhea and Denies vomiting Denies urinary frequency, Denies dysuria and Denies urinary urgency Musc Denies arthralgias, Denies joint swelling, Denies numbness and Denies tingling Neuro Denies Abnormal speech present, Denies behavioral changes, Denies vertigo, Reports dizziness, Denies headache(s), Denies loss of vision, Denies memory loss, Denies numbness and Denies tingling Psych Denies anxiety, Denies behavioral changes, Denies depression, Denies memory loss and Denies panic attacks Elpidio/Lymph Denies easy bleeding and Denies easy bruising Aller/Immun Denies wheezing Physical exam (Primary Care) Vital Signs: Last Vital Signs Temp 96.9 F 07/29/24 13:59 Pulse 107 H 07/29/24 13:59 BP 100/80 07/29/24 13:59 Pulse Ox 98 07/29/24 13:59 Oxygen Delivery Method Room Air 07/29/24 13:59 Tobacco/Smoking Status: Tobacco use Status Tobacco use date assessed 07/29/24 07/29/24 14:04 Patient Tobacco Use Status Former Tobacco user 07/29/24 14:04 Tobacco use type Cigarette 07/29/24 14:04 e-Cigarette/Vaping Use Never Used 07/29/24 14:04 PHQ-9: PHQ-9 Score PHQ-9: Total score 21 07/29/24 14:04 Depression Screening Interpretation: Positive Depression Screening Follow-up: Existing condition and Declines treatment Thrive Assessment: Date of Thrive Assessment Date Thrive assessed 07/29/24 07/29/24 14:04 Currently or been in a relationship where the following occur: No concerns reported Const General: healthy appearing, no acute distress, alert and awake Nutritional Appearance: well nourished Orientation/consciousness: oriented to person, oriented to place and oriented to time HENMT Ears: TM's normal bilaterally General nose exam: Normal nasal mucous membranes and turbinates present Eyes Conjunctivae: conjunctivae normal Sclerae: sclerae normal Pupils: Equal, round and reactive pupils present Neck Neck: Yes no lymphadenopathy and Yes no JVD Thyroid: Thyroid normal Carotids: no bruits Resp Effort & Inspection: normal respiratory effort and not tachypneic Auscultation: no crackles, no rales, no rhonchi and no wheezes Cardio Rate: regular rate Rhythm: regular rhythm Heart sounds: no murmurs and normal S1 and S2 GI Palpation (GI): Soft to palpation, nontender, no hepatomegaly and no splenomegaly Auscultation: normal bowel sounds Skin General skin exam: no rashes or lesions noted and dry skin Neuro General: oriented to person, oriented to place and oriented to time Cranial nerves: Yes Equal, round and reactive pupils present Speech: No Abnormal speech present Gait exam (Neuro): Normal gait present Motor exam (neuro): no tremor noted Extrem Right upper extremity: full ROM Left upper extremity: full ROM Right lower extremity: full ROM; no edema Left lower extremity: full ROM; no edema Psych Mental Status: mental status grossly normal Speech and movement: Normal speech and movement present Affect: normal affect Attitude: cooperative Thought process: Normal thought process present Coding Level of Care Code Est Pt Level 4 (16452) Diagnoses Coronary artery disease involving coronary bypass graft of [place] without angina pectoris I25.810 [place] vs. transplanted heart: [place] Associated angina: without angina MDD (major depressive disorder), recurrent episode, moderate F33.1 Dizziness R42 Additional Codes PHQ-9 - 29731 - PHQ-9 Billing: Yes ([id number]) JOHANNY-7 Assessment Billing - JOHANNY-7 Assessment Tool: JOHANNY-7 Assessment 08080 ([id number]) Assessment & Plan Assessment & Plan (1) CAD (coronary artery disease) of bypass graft: Code(s): I25.810 - Atherosclerosis of coronary artery bypass graft(s) without angina pectoris Category: Medical Qualifiers: [place] vs. transplanted heart: [place] Associated angina: without angina Qualified Code(s): I25.810 - Atherosclerosis of coronary artery bypass graft(s) without angina pectoris Plan: Patient continues to follow cardiology on an annual basis. Continues on Praluent injections or 2 weeks cholesterol. Goal LDL to be below 70. Send for echocardiogram to evaluate heart function since it has been 2 years since open heart surgery in still having issues with regulating her blood pressure. (2) MDD (major depressive disorder), recurrent episode, moderate: Code(s): F33.1 - Major depressive disorder, recurrent, moderate Category: Medical Plan: Patient continues to suffer with depression though has been fairly stable without medication at this time. Not interested in speaking with a mental health therapist (3) Dizziness: Code(s): R42 - Dizziness and giddiness Category: Medical Plan: Patient reports having chronic dizziness, unclear if this is related to has been side effect. Blood pressure remains on the low end. She does have midodrine available to her though reports her blood pressure is too elevated when she takes midodrine. Orders: Orders CA echo transthoracic complete Today I25.810 - Atherosclerosis of coronary artery bypass graft(s) without angina pectoris Ferritin Today D50.9 - Iron deficiency anemia, unspecified IRON PROFILE Today D50.9 - Iron deficiency anemia, unspecified Vitamin B12 and Folate Today D50.9 - Iron deficiency anemia, unspecified, E53.8 - Deficiency of other specified B group vitamins Medications: New vitamin B complex (Vitamins B Complex tablet) 1 tab PO DAILY 90 days 90 tabs 1RF M79.7 - Fibromyalgia
--- OUTSIDE RECORDS SUMMARY | 2024-07-29 16:19 | XMS_ITS | Clinical Summary ---
Author Organization [facility] Facility Address [address] [place] [id number] Care Team Providers Care Auto Locator Name Role Phone Unavailable Primary Care Provider [...] ID:Not on file Type:Not on file Address: [address] [place]IC[place] Member Subscriber Plan / Payer (Ef fective 2022-Present) Name:Yomaira Dunn Relation to Subscriber:Self Name:DunnYomaira solis Payer ID:Not on file Group ID:Not on file Type:Not on file Address: [place] [id number]
== END 2024-07-29 14:42 | disposition home or self-care (01) ==
PROVIDERS: Visit Provider Physician Assistant
DX: I25.810 Atherosclerosis of coronary artery bypass graft(s) without angina pectoris (principal); F33.1 Major depressive disorder, recurrent, moderate; R42 Dizziness and giddiness

== ENCOUNTER → 2024-07-29 13:47 | Outpatient (BNVA) | payer MEDICARE, MEDICAID, SELFPAY | PROVIDERS: Visit Provider Physician Assistant | DX: I25.810 Atherosclerosis of coronary artery bypass graft(s) without angina pectoris (principal); F33.1 Major depressive disorder, recurrent, moderate; R42 Dizziness and giddiness | CPT/HCPCS: 96127; 99212 ==

== ENCOUNTER 2024-08-02 09:44 | Emergency (ER) | payer MEDICARE, MEDICAID, SELFPAY ==
[2024-08-02] VITALS (8 sets, daily range): BP systolic 104–152; BP diastolic 46–92; PULSE 96–131; RESP 12–20; TEMP 36.7–37.2; O2SAT 94–98; BMI 39.1
--- NOTE | ~2024-08-02 | XR_ITS ---
EXAMINATION: XR CHEST 2 VIEWS HISTORY: cough COMPARISON: Comparison is made with the prior examination dated 1123 FINDINGS: PA and lateral views of the chest are submitted. The lungs are expanded and clear. There is no pleural effusion, pneumothorax, or pulmonary vascular congestion. The heart is normal in size. The patient is status post median sternotomy and CABG. The bones are intact. XR/XR chest 2V IMPRESSION: No acute cardiopulmonary abnormality. Electronically signed by: Jeronimo Smith MD 08/02/2024 10:41 AM [facility]
--- NOTE | 2024-08-02 10:20 | ED.GENADULT ---
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 She states that she has been sick for the last 1-2 days. She states no fevers. She reports associated myalgias and headache. She states dry cough with no sputum production. She states that for asthma has started to act up as well. She states taking 2 puffs of her albuterol inhaler and then doing an updraft at about 8:00 a.m. and states that she still felt short of breath. She states no chest pain or hemoptysis. She states no abdominal pain, nausea or vomiting. She states no symptoms. She states no syncope. She states positive sick contact with someone who has the flu. Related Data Home Medications ?Medication ?Instructions ?Recorded ?Confirmed aspirin 81 mg tablet,delayed 81 mg PO DAILY 01/03/24 07/29/24 release (Enteric Coated Aspirin) Previous Rx's ?Medication ?Instructions ?Recorded miscellaneous medical supply 1 ea miscellaneous .nightly 99 09/12/23 days #1 ea betamethasone, augmented 0.05 % 1 appl topical DAILY 8 weeks #45 09/13/23 topical ointment grams capsaicin 0.1 % topical cream 1 appl topical TID pain #60 grams 11/03/23 (Arthritis Pain Relief (capsaicin)) loratadine 10 mg tablet 10 mg PO DAILY #90 tabs 04/01/24 riboflavin (vitamin B2) 50 mg 50 mg PO DAILY 90 days #90 tabs 04/01/24 tablet prednisone 5 mg tablet 5 mg PO DIRECTED 6 days #12 tabs 04/29/24 alirocumab 75 mg/mL subcutaneous 75 mg subcut Q14D #2 mL 04/30/24 pen injector (Praluent Pen) albuterol sulfate 2.5 mg/3 mL 2.5 mg (3 mL) inhalation Q6H PRN 06/25/24 (0.083 %) solution for nebulization shortness of breath or wheezing 15 days #180 mL budesonide 32 mcg/actuation nasal 2 spray intranasal BID 30 days 06/25/24 spray #8.43 mL lidocaine 5 % topical cream 1 appl topical BID pain 30 days 06/25/24 #30 grams cholecalciferol (vitamin D3) 50 50 mcg PO DAILY #90 caps 06/26/24 mcg (2,000 unit) capsule Xopenex HFA 45 mcg/actuation 2 inh inhalation Q6H 30 days #15 07/01/24 aerosol inhaler (levalbuterol grams tartrate) vitamin B complex (Vitamins B 1 tab PO DAILY 90 days #90 tabs 07/29/24 Complex tablet) levalbuterol HCl 0.31 mg/3 mL 0.31 mg (3 mL) inhalation Q4H PRN 08/02/24 solution for nebulization shortness of breath or wheezing #75 mL levalbuterol tartrate 45 4 inh inhalation Q4H #15 grams 08/02/24 mcg/actuation aerosol inhaler (Xopenex HFA) prednisone 50 mg tablet 50 mg PO DAILY 4 days #4 tabs 08/02/24 Allergies Allergy/AdvReac Type Severity Reaction Status Date / Time calcium [Calcium] Allergy Severe HIVES Verified 08/02/24 09:53 doxycycline [Doxycycline] Allergy Severe FACIAL Verified 08/02/24 09:53 SWELLING,almost killed pt,inhouse for weakness,,incontinence?seizures Penicillins Allergy Severe Facial Verified 08/02/24 09:53 Swelling lactose Allergy Mild Unknown Verified 08/02/24 09:53 amoxicillin Allergy Unknown Throat Verified 08/02/24 09:53 swelling azithromycin [AZITHROMYCIN] Allergy Unknown Bloody Verified 08/02/24 09:53 Diarrhea cefuroxime [CEFUROXIME] Allergy Unknown Angioedema Verified 08/02/24 09:53 ciprofloxacin [From Cipro] Allergy Unknown Unknown Verified 08/02/24 09:53 clindamycin [CLINDAMYCIN] Allergy Unknown Anaphylaxis Verified 08/02/24 09:53 erythromycin base Allergy Unknown Diarrhea Verified 08/02/24 09:53 iron Allergy Unknown Unknown Verified 08/02/24 09:53 levofloxacin [From Levaquin] Allergy Unknown Unknown Verified 08/02/24 09:53 peanut [Peanut] Allergy Unknown Itching Verified 08/02/24 09:53 penicillin V Allergy Unknown ears and Verified 08/02/24 09:53 face swell,throat swell Sulfa (Sulfonamide Allergy Unknown ANAPHYLAXIS, Verified 08/02/24 09:53 Antibiotics) swelling [SULFA(SULFONAMIDE body,welts ANTIBIOTICS)] [id number]-[id number]-EnD Reductase AdvReac Severe Muscle Pain Verified 08/02/24 09:53 Inhibitor aspirin AdvReac Intermediate Swelling Verified 08/02/24 09:53 cefazolin AdvReac Mild Anaphylaxis Verified 08/02/24 09:53 cheetos Allergy Unknown itchy, rash Uncoded 07/29/24 14:05 cranberry juice Allergy Unknown mouth Uncoded 07/29/24 14:05 itchy, bumps grape juice Allergy Unknown mouth Uncoded 07/29/24 14:05 itchy, bumps RAISIN Allergy Unknown Itching Uncoded 07/29/24 14:05 TURNIPS Allergy Unknown Unknown Uncoded 07/29/24 14:05 Plavix/clopidogrel AdvReac Intermediate Fatigued, Uncoded 07/29/24 14:05 dizziness, lightheadedness Review of Systems Review of Systems: ROS as per HPI [facility] Past Medical History Medical History CAD (coronary artery disease) IBS (irritable bowel syndrome) Exocrine pancreatic insufficiency Lichen sclerosus Cough Bilateral knee pain Rectal prolapse Pre-op examination Small intestinal bacterial overgrowth Appendicitis Kidney stone Carpal tunnel syndrome Right shoulder injury Vertigo Chronic headaches Diverticulosis Fibromyalgia Depression Surgical History H/O uterosacral colpopexy H/O breast surgery S/P triple vessel bypass History of endometrial ablation History of esophagogastroduodenoscopy (EGD) Hx of colonoscopy Hx of carpal tunnel repair (~07/2019) Hx of rotator cuff surgery Hx of shoulder surgery Hx of appendectomy Hx of cholecystectomy Family History Family History Father Myocardial infarction, Onset Age: 46 Mother Congestive heart failure Stomach problems Stomach ulcer Anxiety and depression Myocardial infarction, Onset Age: 50 Mental health disorder Sister Heart problem Myocardial infarction, Onset Age: 59 Sister Afib Brother Throat cancer Lung cancer Social History Social History Household Members: Family Housing: Apartment Alcohol intake: never Patient Tobacco Use Status: Former Tobacco user Tobacco use type: Cigarette Years Smoked: 30 +/- e-Cigarette/Vaping Use: Never Used Second Hand Smoke Exposure: No Advance Directives: Yes Advance Directives on File: Yes Advance Directives Date on File: 02/25/22 Do you have a plan to hurt others: No Plan service: No Current occupational status: disabled 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 Cognitive needs: No Hearing needs: No Vision needs: Yes (Glasses) Physical Exam ED Vital Signs: Vital Signs - 24 hr 08/02/24 09:52 08/02/24 10:50 08/02/24 11:19 Temperature 98.9 F 98.1 F Pulse Rate 96 96 131 H Respiratory Rate 18 18 12 Blood Pressure 148/76 H 104/52 L Pulse Oximetry 95 98 Oxygen Delivery Method Room Air Room Air BMI result Body Mass Index 39.1 Gen: NAD, AOx3 HEENT: NCAT, EOMI, normal conjunctiva CV: RRR, no peripheral edema Pulm: Diffuse expiratory wheezes, no increased work of breathing at rest or conversational dyspnea GI: Soft, NTND Neuro: Grossly non focal Medications Administered Discontinued Medications Generic Name Dose Route Start Last Admin Trade Name Freq PRN Reason Stop Dose Admin Acetaminophen 975 mg 08/02/24 10:48 08/02/24 11:09 Acetaminophen 325 Mg Tablet PO 08/02/24 10:49 975 mg ONCE ONE Administration Albuterol Sulfate 5 mg/ 0 mg 08/02/24 10:18 08/02/24 10:50 Albuterol/Ipratropium 3 ml INHALE 08/02/24 10:19 1 each ONCE ONE Administration Prednisone 50 mg 08/02/24 10:24 08/02/24 11:08 Prednisone 10 Mg Tablet PO 08/02/24 10:25 50 mg ONCE ONE Administration Medical Decision Making Medical Decision Making MDM Narrative: Differential diagnosis includes, but is not limited to viral URI, asthma exacerbation. Consider pneumonia and will will obtain chest x-ray for evaluation although clinical suspicion is low given is short duration of symptoms, no fever and exam as above. very low clinical suspicion for pneumothorax. Patient is afebrile and hemodynamically stable on room air. Exam is notable for expiratory wheezes consistent with bronchospasm for which patient is provided nebulized bronchodilators and prednisone. I reviewed viral swab and chest x-ray as below. Patient states that she does not have a spacer for her metered-dose inhaler at home and so she was provided 1 here. On re-examination, patient is well-appearing and in no acute distress. There is no indication for further emergent evaluation in this otherwise well-appearing patient as above. Patient is provided written and verbal instructions, educational materials, prescription for prednisone and Xopenex,recommendations for outpatient follow-up, strict return precautions and teach back is performed. Patient states understanding and agreement with plan of care. Patient is discharged home in stable and improved condition. Admission/Observation Consideration of admission/observation: Escalation of care including admission/observation considered Lab Data MDM Lab Attestation statement: I reviewed the patient's lab results. patient is negative for COVID-19, influenza and RSV. Labs: Lab Results 08/02/24 Range/Units 10:44 Influenza Type A (PCR) NEGATIVE (Negative) Influenza Type B (PCR) NEGATIVE (Negative) RSV RNA Qual (PCR) NEGATIVE (Negative) SARS-CoV-2 RNA (RT-PCR) NEGATIVE (Negative) Independent Interpretation I performed an independent interpretation of an: Plain X-Ray Interpretation: I independently reviewed and interpreted the patient's chest x-ray, which demonstrates no pleural effusion, focal consolidation or pneumothorax Radiology Impression Discussion of test interpretation with radiology: I have reviewed the radiologist's reading. Radiologist Impression: XR/XR chest 2V IMPRESSION: No acute cardiopulmonary abnormality. Electronically signed by: Jeronimo Smith MD 08/02/2024 10:41 AM [facility] Dictated By: Jeronimo Smith MD Signed By: <Electronically signed by Jeronimo Smith MD in OV> 08/02/24 1041 Discharge Plan Discharge Clinical Impression: Upper respiratory infection, viral, Acute bronchospasm Patient Disposition: Home, Self-Care Instructions: Wheezing (ED), Upper Respiratory Infection (ED) Additional Instructions: You were seen and evaluated in the emergency room. Your vital signs were reassuring you were treated with nebulized bronchodilators and prednisone. Your chest x-ray showed no evidence of pneumonia. You tested negative for COVID-19, influenza and RSV. Your symptoms are consistent with a viral upper respiratoy tract infection with wheezing (i.e. bronchospasm). You were given a prescription for prednisone. Please take as directed until completed. Your next dose to be taken tomorrow morning August 03, 2024. Please take 4 puffs of your levalbuterol inhaler with a spacer (or 1-2 vials of nebulized levalbuterol) every 4 hours for at least the next 24 hours. After 24 hours, you may reassess and consider using 4 puffs every 4 hours NEEDED. Please follow-up with your primary care doctor in the next 5-7 days. Please return to the emergency room if you develop any worsening symptoms. Prescriptions: New prednisone 50 mg tablet 50 mg PO DAILY 4 Days Qty: 4 0RF levalbuterol tartrate [Xopenex HFA] 45 mcg/actuation HFA aerosol inhaler 4 inh inhalation Q4H Qty: 15 0RF levalbuterol HCl 0.31 mg/3 mL solution for nebulization 0.31 mg inhalation Q4H PRN (Reason: shortness of breath or wheezing) Qty: 75 0RF No Action miscellaneous medical supply Misc 1 ea miscellaneous .nightly 99 Days Qty: 1 0RF capsaicin [Arthritis Pain Relief(capsaic)] 0.1 % cream 1 appl topical TID Qty: 60 0RF Rx Instructions: do not wash area for at least 30 min after application riboflavin (vitamin B2) 50 mg tablet 50 mg PO DAILY 90 Days Qty: 90 2RF loratadine 10 mg tablet 10 mg PO DAILY Qty: 90 1RF Praluent Pen 75 mg/mL pen injector 75 mg subcut Q14D Qty: 2 6RF lidocaine 5 % cream 1 appl topical BID 30 Days Qty: 30 0RF albuterol sulfate 2.5 mg /3 mL (0.083 %) solution for nebulization 2.5 mg inhalation Q6H PRN (Reason: shortness of breath or wheezing) 15 Days Qty: 180 3RF budesonide 32 mcg/actuation spray,non-aerosol 2 spray intranasal BID 30 Days Qty: 8.43 3RF Rx Instructions: administer into each nostril cholecalciferol (vitamin D3) 50 mcg (2,000 unit) capsule 50 mcg PO DAILY Qty: 90 3RF levalbuterol tartrate [Xopenex HFA] 45 mcg/actuation HFA aerosol inhaler 2 inh inhalation Q6H 30 Days Qty: 15 6RF betamethasone, augmented 0.05 % ointment 1 appl topical DAILY 56 Days Qty: 45 1RF Rx Instructions: apply a thin a coat to area nightly for two weeks, then every other night for two weeks, then twice a week aspirin [Enteric Coated Aspirin] 81 mg tablet,delayed release (DR/EC) 81 mg PO DAILY Rx Instructions: 4x a week prednisone 5 mg tablet 5 mg PO DIRECTED 6 Days Qty: 12 0RF Rx Instructions: Take 3 tablets x2 days, 2 tablets x2 days, 1 tablet x2 days vitamin B complex [Vitamins B Complex] Tablet 1 tab PO DAILY 90 Days Qty: 90 1RF Print Language: Yoruba
[2024-08-02] MEDS: Albuterol Sulfate 5 MG, Albuterol/Iprat 2.5/0.5MG 3 ML 3 ML INHALE (10:50)
[2024-08-02] MEDS: predniSONE 10 MG TABLET 50 MG PO (11:08)
[2024-08-02] MEDS: Acetaminophen 325 MG TABLET 975 MG PO (11:09)
--- NOTE | 2024-08-02 11:18 | PC.RT ---
Pt HR post tx increased to 130's. Pt states feeling shaky. Pt in bed resting, deep breathing to calm and slow HR. MD aware of HR increase.
[2024-08-02 11:27] LABS: Influenza A PCR NEGATIVE (Negative); Influenza B PCR NEGATIVE (Negative); Resp Syncy Virus RNA Qual PCR NEGATIVE (Negative); SARS COV2 PCR INHOUSE NEGATIVE (Negative)
--- OUTSIDE RECORDS SUMMARY | 2024-08-02 11:43 | XMS_ITS | Clinical Summary ---
Author Organization [facility] Facility Address [address] [place] [id number] Care Team Providers Care Credit Assistant Name Role Phone Unavailable Primary Care Provider [...] ID:Not on file Type:Not on file Address: [address] MED[place]ARE [place]ID [place] Member Subscriber Plan / Payer (Ef fective 2022-Present) Name:Yomaira Dunn Relation to Subscriber:Self Name:DunnYomaira solis Payer ID:Not on file Group ID:Not on file Type:Not on file Address: [place] [id number]
--- OUTSIDE RECORDS SUMMARY | 2024-08-02 11:43 | XMS_ITS | Clinical Summary ---
Author Organization [facility] Address [address] [place] [address] Care Team Providers Care Computer Forensics Examiner Name Role Phone Peri Joe PA-C Primary Care Provider [phone] Source Comments PLEASE NOTE, if this patient [...] Overview (03/24/2015): Seen by Dr Merrill at [facility] on 03/04/2015: Xrays done which showed an [...] when follow up occurs. Pt seen at [facility]: on 02/16/2015: Given Mobic: referred for MRi of shoulder for possible rotator cuff tear. Seen 03/23/2015: Will obtain MRI due to increase complaint. consider injections. Seen By Dr Ambrose at [facility] on 06/23/2015: Pt has right shoulder rotator [...] in the patellofemoral compartment. Pt seen at [facility] on 06/24/2015: will obtain ortho evaluation for knee. IBS (irritable bowel syndrome) 05/05/2014 Overview (05/20/2014): EGD normal 2007. Duodenal biopsy normal. Colonic biopsy normal. Barium enema normal. Migraines 05/05/2014 Chronic low back pain 05/05/2014 Overview (02/24/2015): MRI w/o contrast done 06/23/2013 at [facility] of lumbar spine: impression: at T9- T10 there is a small left paramedian /posterior disc herniation seen in the sagittal sequences. Mild ligamentous bulging and minor facet arthropathy of the lower lumbar spine as described. No focal nerve root compression. Xray done of lumbosacral spine done at [facility] on 04/03/14: similar appearing mild degenerative changes. [...] on file Insurance [employer] LUDY Care Teams Computer Forensics Examiner Relationship Specialty Start Date End Date Peri Joe PA-C [address] [place] [address] PCP - General 04/18/18
--- NOTE | 2024-08-02 12:35 | ECG_ITS ---
Test Reason : tachycardia Blood Pressure : */* mmHG Vent. Rate : 106 BPM Atrial Rate : 106 BPM P-R Int : 142 ms QRS Dur : 80 ms QT Int : 332 ms P-R-T Axes : 69 58 80 degrees QTcB Int : 441 ms Sinus tachycardia Possible Left atrial enlargement Nonspecific ST abnormality Abnormal ECG When compared with ECG of 30-Nov-2023 14:44, Vent. rate has increased by 35 bpm Referred By: Bernabe Washington Electronically Signed By: ASHLY VELASQUEZ MD
[2024-08-02] MEDS: Lactated Ringers 1,000 ML 999 ML IV (13:11)
[2024-08-02 13:17] LABS: MANUAL DIFF FLAG NO
[2024-08-02 13:19] LABS: Basophils Absolute Auto 0.1 X10*3/uL (0.0-0.2); Basophils Percent Auto 0.4 % (0-2); Eosinophils Absolute Auto 0.1 X10*3/uL (0.0-0.4); Eosinophils Percent Auto 0.9 % (0-4); Hematocrit 40.3 % (37.0-47.0); Hemoglobin 12.9 g/dl (12.0-16.0); Imm Gran Abs Auto 0.08 X10*3/uL (0.00-0.03); Imm Gran Pct Auto 0.5 % (0.0-0.4); Lymphocytes Percent Auto 6.2 % (20-40); Mean Corpuscular Hemoglobin 26.4 pg (27.0-33.0); Mean Corpuscular Volume 82.4 fL (80.0-98.0); Monocytes Absolute Auto 0.5 X10*3/uL (0.1-1.2); Monocytes Percent Auto 3.2 % (2-11); Neutrophils Absolute Auto 14.5 x10*3/uL (2.0-8.3); Neutrophils Percent Auto 88.8 % (45-73); Platelet Count 345 X10*3/uL (160-400); Red Blood Count 4.89 X10*6/uL (4.20-5.50); Red Cell Distribution Width 15.5 % (11.0-16.0); White Blood Count 16.4 X10*3/uL (4.8-10.8)
[2024-08-02 13:32] LABS: Anion Gap 15 (12-20); Blood Urea Nitrogen 13 mg/dL (9-16); Calcium 9.1 mg/dL (8.4-10.2); Carbon Dioxide 22 mmol/L (22-29); Chloride 105 mmol/L (96-108); Creatinine Clr Calc Pharmacy 72.3; Estimated Glomerular Filt Rate > 60; Glucose Random 151 mg/dL (60-115); Sodium 138 mmol/L (135-145)
[2024-08-02] MEDS: levalbuterol HCL 2.5 MG, Ipratropium Bromide 0.5 MG INHALE (14:53)
--- NOTE | 2024-08-02 16:38 | PHA.MEDREC ---
Pharmacy Consult ? Medication Reconciliation Pharmacy has completed the medication reconciliation. Spoke with patient and she was able to confirm her medications. Patient confirmed her she takes her Praluent every 14 days but couldn't remember at this time if she was due for it today or next week. She confirmed she last took her medications yesterday.
== END 2024-08-02 17:42 | disposition home or self-care (01) ==
PROVIDERS: Emergency Provider Emergency Medicine; PCP Internal Medicine
DX: J06.9 Acute upper respiratory infection, unspecified (principal); R03.1 Nonspecific low blood-pressure reading; J45.909 Unspecified asthma, uncomplicated; I25.10 Atherosclerotic heart disease of native coronary artery without angina pectoris; Z95.1 Presence of aortocoronary bypass graft
CPT/HCPCS: 0241U; 36415; 71046; 80048; 84484; 85025; 93005; 94640; 96360; 96361; 99285; J7120

== ENCOUNTER → 2024-08-02 10:18 | Outpatient (BNV) | payer MEDICARE, MEDICAID, SELFPAY | PROVIDERS: Emergency Provider Emergency Medicine; PCP Internal Medicine; Visit Provider Radiology Diagnostic Radiology | DX: R05.9 Cough, unspecified (principal) | CPT/HCPCS: 71046 ==

== ENCOUNTER → 2024-08-02 12:35 | Outpatient (BNV) | payer MEDICARE, MEDICAID, SELFPAY | PROVIDERS: Emergency Provider Emergency Medicine; PCP Internal Medicine; Visit Provider Internal Medicine Cardiovascular Disease | DX: R00.0 Tachycardia, unspecified (principal) | CPT/HCPCS: 93010 ==

== ENCOUNTER → 2024-08-20 09:39 | Outpatient (REF) | payer MEDICARE, MEDICAID, SELFPAY ==
--- NOTE | 2024-08-20 09:42 | CA_ITS ---
Transthoracic Echocardiogram Patient (Last, First, Middle): Yomaira Dunn L Gender: Female Date of : 1965 Age: 59 Procedure Date: 08/20/2024 Procedure Type: Transthoracic Echocardiogram Location: OP Height: 152.4 cm Weight: 90.72 kg BSA: 1.87 m2 Heart Rate: bpm BP: 92 / 60 mmHg [place] Finisher: GISSELLE Referring MD: Angelo Tejada PA-C Acid Retort Operator: Robert Esquivel MD Symptoms: I25.810 - Atherosclerosis of coronary artery bypass graft(s) without ang... Study Quality: Technically Difficult ECG Rhythm: Sinus Conclusions: - 1. Technically limited study 2. LV ejection fraction of 60 65% with impaired relaxation filling pattern 3. Cardiac valvular Dopplers within normal limits Findings Left Ventricle Normal left ventricular size, thickness, and systolic function. The visually estimated ejection fraction is between 60-65%. Regional wall motion abnormalities can not be excluded due to suboptimal endocardial definition. Spectral Doppler is indicative of an impaired relaxation filling pattern. Right Ventricle The right ventricle was not well visualized. Atria The left atrium is normal in size. Interatrial shunt cannot be excluded. The right atrium was not well visualized. Aortic Valve The aortic valve was not well visualized. There is no aortic valve stenosis. There is no aortic valve regurgitation. Mitral Valve The mitral valve was not well visualized. There is trace mitral valve regurgitation. There is no mitral valve stenosis. Pulmonic Valve The pulmonic valve was not well visualized. Tricuspid Valve The tricuspid valve was not well visualized. Tricuspid regurgitation envelope is inadequate for calculation of right ventricular systolic pressure. Great Vessels The aorta was not well visualized. The pulmonary artery was not well visualized. Venous The inferior vena cava is normal in size. Pericardium/Pleural The pericardium was not well visualized. Recommendations, Care & Conclusions Recommend contrast in the future to improve endocardial definition. Measurements 2D Linear Measurements IVSd: 0.98 0.6-0.9/0.6-1.0 cm LVIDd: 4.34 3.9-5.3/4.2-5.9 cm LVIDd Index: 2.32 2.4-3.2/2.2-3.1 cm/m2 LVIDs: 3.32 2.0-3.6 cm LVPWd: 1.01 0.7-1.1 cm LA Diam: 3.80 2.7-3.8/3.0-4.0 cm LAIDs Index: 2.03 1.5-2.3 cm/m2 LV Mass: 178.14 67-162/88-224 g LV Mass Index: 95.26 43-95/49-115 g/m2 LVOT Diam: 2.00 3.0+(-)1.3 cm 2D Systolic Function EF 4C: 63.30 >55% EF 2C: 57.40 >55% EF BiP: 60.60 >55% Mitral Valve MV Pk E: 1.39 MV PK A: 0.93 MV Decel Time: 156.00 E/A: 1.50 E'Lateral: 9.90 E'Medial: 8.05 E/E' Med: 17.30 E/E' Lat: 14.00 PHT: 46.00 MVA PHT: 4.78 Decel Mitchell: 8.90 Aortic Valve AoV Pk González: 1.92 AoV Mn Ognzález: 1.23 AoV VTI: 0.37 AoV Pk Grad: 15.00 Aov Mn Grad: 7.00 OSCAR Cont.VTI: 2.11 LVOT LVOT Pk González: 1.17 LVOT Mn González: 0.76 LVOT VTI: 0.25 LVOT Pk Grad: 5.00 LVOT Mn Grad: 3.00 LVOT Diam: 2.00 LVOT Area: 3.14 Diastolic Function MV Pk E: 1.39 MV Pk A: 0.93 E/A: 1.50 E'Medial: 8.05 E/E' Med: 17.30 E' Laterial: 9.90 E/E' Lat: 14.00 Right Ventricle TAPSE (mm): 20.40 TVS' González: 11.40 Tricuspid Valve RA Press: 3.00 Great Vessels Aorta Sinus of Valsalva: 3.03 2.0-3.[address] [place]: 2.55 1.7-3.4 cm Updated in Other Vendor System with Status of Final Robert Esquivel MD electronically signed on 08/21/2024 2:05:03 PM with status of Final
--- OUTSIDE RECORDS SUMMARY | 2024-08-20 10:53 | XMS_ITS | Clinical Summary ---
Author Organization [facility] Address [address] [place] [address] Care Team Providers Care Diploma Dental Assistant Name Role Phone Peri Joe PA-C Primary Care Provider [phone] Source Comments PLEASE NOTE, if this patient [...] Overview (03/24/2015): Seen by Dr Merrill at [facility] on 03/04/2015: Xrays done which showed an [...] when follow up occurs. Pt seen at [facility]: on 02/16/2015: Given Mobic: referred for MRi of shoulder for possible rotator cuff tear. Seen 03/23/2015: Will obtain MRI due to increase complaint. consider injections. Seen By Dr Ambrose at [facility] on 06/23/2015: Pt has right shoulder rotator [...] in the patellofemoral compartment. Pt seen at [facility] on 06/24/2015: will obtain ortho evaluation for knee. IBS (irritable bowel syndrome) 05/05/2014 Overview (05/20/2014): EGD normal 2007. Duodenal biopsy normal. Colonic biopsy normal. Barium enema normal. Migraines 05/05/2014 Chronic low back pain 05/05/2014 Overview (02/24/2015): MRI w/o contrast done 06/23/2013 at [place] of lumbar spine: impression: at T9- T10 there is a small left paramedian /posterior disc herniation seen in the sagittal sequences. Mild ligamentous bulging and minor facet arthropathy of the lower lumbar spine as described. No focal nerve root compression. Xray done of lumbosacral spine done at [facility] on 04/03/14: similar appearing mild degenerative changes. Xray done of lumbosacral spine with obliques done at on 02/18/13: mild degenerative changes. Multiple allergies 05/05/2014 Resolved Problems Problem Noted Date Diagnosed Date Resolved Date Bronchitis 05/05/2014 01/15/2021 Immunizations Immunization Administration Dates Next Due MENINGOCOCCAL VACCINE,CONJUG ATE [...] on file Insurance H[employer] LUDY Care Teams Diploma Dental Assistant Relationship Specialty Start Date End Date Peri Joe PA-C [address] [place] [address] PCP - General 04/18/18
--- OUTSIDE RECORDS SUMMARY | 2024-08-20 10:53 | XMS_ITS | Clinical Summary ---
Author Organization [facility] Facility Address [address] [place] [id number] Care Team Providers Care Circus Hand Name Role Phone Unavailable Primary Care Provider [...] ID:Not on file Type:Not on file Address: [address] MED[place]ARE [place]ID [place] Member Subscriber Plan / Payer (Ef fective 2022-Present) Name:Yomaira Dunn Relation to Subscriber:Self Name:DunnYomaira solis Payer ID:Not on file Group ID:Not on file Type:Not on file Address: [place] [id number]
== END ==
LOC: HO.CARD 09:39
PROVIDERS: PCP Physician Assistant; Visit Provider Physician Assistant
DX: I25.810 Atherosclerosis of coronary artery bypass graft(s) without angina pectoris (principal)
CPT/HCPCS: 93306

== ENCOUNTER → 2024-08-20 09:42 | Outpatient (BNV) | payer MEDICARE, MEDICAID, SELFPAY | PROVIDERS: PCP Physician Assistant; Visit Provider Internal Medicine Cardiovascular Disease | DX: I25.810 Atherosclerosis of coronary artery bypass graft(s) without angina pectoris (principal) | CPT/HCPCS: 93306 ==

== ENCOUNTER 2024-08-23 09:54 | Outpatient (REF) | payer MEDICARE, MEDICAID, SELFPAY ==
[2024-08-23 11:22] LABS: Hematocrit 44.3 % (37.0-47.0); Hemoglobin 13.6 g/dl (12.0-16.0); Mean Corpuscular HGB Conc 30.7 g/dl (31.0-35.0); Mean Corpuscular Hemoglobin 25.4 pg (27.0-33.0); Mean Corpuscular Volume 82.8 fL (80.0-98.0); Mean Platelet Volume 10.2 fL (9.4-12.3); Platelet Count 378 X10*3/uL (160-400); Red Blood Count 5.35 X10*6/uL (4.20-5.50); Red Cell Distribution Width 15.4 % (11.0-16.0)
[2024-08-23 11:40] LABS: Appearance Urine Clear; Color Urine Yellow; Glucose Urine UA Negative (Negative); Leukocyte Esterase Urine Negative (Negative); Nitrite Urine Negative (Negative); Specific Gravity - Urine 1.025 (1.005-1.025); UMIC TRIGGER UACC YES; Urine Blood Negative (Negative); Urine Ketones Trace mg/dL (Negative); Urine Protein 30 (1+) mg/dL (Neg-Trace)
[2024-08-23 12:00] LABS: Bacteria Urine None Seen (None Seen); Hyaline Casts Urine 0-2 /LPF (0-2); RBC Urine 0-2 /HPF (0-2); Squamous Epithelial Cell Urine 0-2 /HPF (0-2); WBC Urine 0-5 /HPF (0-5)
[2024-08-23 12:27] LABS: Folate 7.1 ng/mL (> or = 4.0); Vitamin B12 318 pg/mL (200-900)
[2024-08-23 12:29] LABS: Alanine Aminotransferase 18 U/L (0-31); Alkaline Phosphatase 128 U/L (39-117); Anion Gap 11 (12-20); Aspartate Amino Transferase 16 U/L (5-31); Bilirubin Total 0.5 mg/dL (0.0-1.0); Blood Urea Nitrogen 14 mg/dL (9-16); Calcium 9.6 mg/dL (8.4-10.2); Carbon Dioxide 28 mmol/L (22-29); Chloride 107 mmol/L (96-108); Cholesterol 111 mg/dL (<200); Estimated Glomerular Filt Rate > 60; Glucose Fasting 109 mg/dL (60-99); Glucose Random 110 mg/dL (60-115); HDL Cholesterol 41 mg/dL (>40); Iron 42 mcg/dL (30-160); LDL Cholesterol Calculated 48 mg/dL (<100); Percent Iron Saturation 13 % (15-50); Potassium 4.8 mmol/L (3.3-5.1); Sodium 141 mmol/L (135-145); Total Iron Binding Capacity 326 mcg/dL (228-428); Total Protein 7.7 g/dL (6.5-8.0); Triglycerides 114 mg/dL (<150); Unsaturated Iron Binding 284 ug/dL
[2024-08-23 12:32] LABS: Ferritin 42 ng/mL (10-250)
== END 2024-08-23 09:55 | disposition home or self-care (01) ==
LOC: HO.LAB 09:54
PROVIDERS: PCP Physician Assistant; Visit Provider Physician Assistant
DX: J06.9 Acute upper respiratory infection, unspecified (principal); D50.9 Iron deficiency anemia, unspecified; E53.8 Deficiency of other specified B group vitamins; I25.810 Atherosclerosis of coronary artery bypass graft(s) without angina pectoris
CPT/HCPCS: 36415; 80048; 80053; 80061; 81001; 82607; 82728; 82746; 83540; 85027

== ENCOUNTER 2024-09-17 10:05 | Outpatient (REF) | payer MEDICARE, MEDICAID, SELFPAY ==
--- OUTSIDE RECORDS SUMMARY | 2024-09-17 12:38 | XMS_ITS | Clinical Summary ---
Author Organization [facility] Address [address] [address] Care Team Providers Care Complaint Evaluation Supervisor Name Role Phone Unavailable Primary Care Provider [...] complete this topic Insurance Medicare [place] Member Subscriber Plan / Payer (Ef fective 2022-Present) Name:Yomaira Dunn Relation to Subscriber:Self Name:Yomaira Dunn Payer ID:Not on file Group ID:Not on file Type:Not on file Address: [address] [address] Medicare [place] Member Subscriber Plan / Payer (Ef fective 2022-Present) Name:Yomaira Dunn Relation to Subscriber:Self Name:Yomaira Dunn Payer ID:Not on file Group ID:Not on file Type:Not on file Address: [address] [address]
--- OUTSIDE RECORDS SUMMARY | 2024-09-17 12:38 | XMS_ITS | Clinical Summary ---
Author Organization [facility] Address [address] [place] [address] Care Team Providers Care Food Production Worker Name Role Phone Peri Joe PA-C Primary Care Provider [phone] Source Comments PLEASE NOTE, if this patient [...] Overview (03/24/2015): Seen by Dr Merrill at [facility] on 03/04/2015: Xrays done which showed [...] when follow up occurs. Pt seen at [facility]: on 02/16/2015: Given Mobic: referred for MRi of shoulder for possible rotator cuff tear. Seen 03/23/2015: Will obtain MRI due to increase complaint. consider injections. Seen By Dr Ambrose at [facility] on 06/23/2015: Pt has right shoulder [...] in the patellofemoral compartment. Pt seen at [facility] on 06/24/2015: will obtain ortho evaluation for knee. IBS (irritable bowel syndrome) 05/05/2014 Overview (05/20/2014): EGD normal 2007. Duodenal biopsy normal. Colonic biopsy normal. Barium enema normal. Migraines 05/05/2014 Chronic low back pain 05/05/2014 Overview (02/24/2015): MRI w/o contrast done 06/23/2013 at [place] of lumbar spine: impression: at T9- T10 there is a small left paramedian /posterior disc herniation seen in the sagittal sequences. Mild ligamentous bulging and minor facet arthropathy of the lower lumbar spine as described. No focal nerve root compression. Xray done of lumbosacral spine done at [place] on 04/03/14: similar appearing mild degenerative changes. [...] on file Insurance [employer] Care Teams Food Production Worker Relationship Specialty Start Date End Date Peri Joe PA-C [address] [place] [address] PCP - General 04/18/18
[2024-09-18 09:46] LABS: Bacterial Vaginosis PCR NEGATIVE (Negative); Candida Group PCR NOT DETECTED (Not Detect); Candida glab krusei PCR NOT DETECTED (Not Detect); Trichomonas vaginalis PCR NOT DETECTED (Not Detect)
== END 2024-09-17 10:06 | disposition home or self-care (01) ==
LOC: HO.LAB 10:05
PROVIDERS: PCP Physician Assistant; Visit Provider Advanced Practice Midwife
DX: Z01.419 Encounter for gynecological examination (general) (routine) without abnormal findings (principal); N89.8 Other specified noninflammatory disorders of vagina
CPT/HCPCS: 81515; G0101

== ENCOUNTER 2024-09-17 10:05 | Outpatient (AMB) | payer MEDICARE, MEDICAID, SELFPAY ==
--- NOTE | 2024-09-17 10:07 | MHC.OFFVIS ---
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 Intake Note: pt c/o vaginal discharge and itching Lay Out Maker: Lay Out Maker Present (Mikayla) Allergies calcium [Calcium] Allergy (Severe, Verified 09/17/24 10:08) HIVES doxycycline [Doxycycline] Allergy (Severe, Verified 09/17/24 10:08) FACIAL SWELLING,almost killed pt,inhouse for weakness,,incontinence?seizures Penicillins Allergy (Severe, Verified 09/17/24 10:08) Facial Swelling lactose Allergy (Mild, Verified 09/17/24 10:08) Unknown amoxicillin Allergy (Unknown, Verified 09/17/24 10:08) Throat swelling azithromycin [AZITHROMYCIN] Allergy (Unknown, Verified 09/17/24 10:08) Bloody Diarrhea cefuroxime [CEFUROXIME] Allergy (Unknown, Verified 09/17/24 10:08) Angioedema ciprofloxacin [From Cipro] Allergy (Unknown, Verified 09/17/24 10:08) Unknown clindamycin [CLINDAMYCIN] Allergy (Unknown, Verified 09/17/24 10:08) Anaphylaxis erythromycin base Allergy (Unknown, Verified 09/17/24 10:08) Diarrhea iron Allergy (Unknown, Verified 09/17/24 10:08) Unknown levofloxacin [From Levaquin] Allergy (Unknown, Verified 09/17/24 10:08) Unknown linezolid Allergy (Unknown, Verified 09/17/24 10:11) Hives peanut [Peanut] Allergy (Unknown, Verified 09/17/24 10:08) Itching penicillin V Allergy (Unknown, Verified 09/17/24 10:08) ears and face swell,throat swell Sulfa (Sulfonamide Antibiotics) [SULFA(SULFONAMIDE ANTIBIOTICS)] Allergy (Unknown, Verified 09/17/24 10:08) ANAPHYLAXIS, swelling body,welts [id number]-KjR Reductase Inhibitor Adverse Reaction (Severe, Verified 09/17/24 10:08) Muscle Pain aspirin Adverse Reaction (Intermediate, Verified 09/17/24 10:08) Swelling cefazolin Adverse Reaction (Mild, Verified 09/17/24 10:08) Anaphylaxis cheetos Allergy (Unknown, Uncoded 07/29/24 14:05) itchy, rash cranberry juice Allergy (Unknown, Uncoded 07/29/24 14:05) mouth itchy, bumps grape juice Allergy (Unknown, Uncoded 07/29/24 14:05) mouth itchy, bumps RAISIN Allergy (Unknown, Uncoded 07/29/24 14:05) Itching TURNIPS Allergy (Unknown, Uncoded 07/29/24 14:05) Unknown Plavix/clopidogrel Adverse Reaction (Intermediate, Uncoded 07/29/24 14:05) Fatigued, dizziness, lightheadedness HPI Comments Details: She is a postmenopausal woman presenting for her 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 She is doing well with manager of community relations concerns: watery discharge, itching and burning, recent antibiotics. New bump on right buttocks. Hx of LS-not routinely using med due to difficulty reaching area with weight gain. Currently not sexually active. STI testing offered; she declines Attempting to eat a healthy diet with calcium and vitamin D. Admits to weight gain since open heart surgery. Limited exercise due to leg weakness, is disabled. Last pap smear; 2022. Scheduled for September 2024. Pt. had deferred scans due to pain from surgery. Colonoscopy is not UTD. She has done the Cologard. Denies any family history of breast, ovarian or colon cancer. [facility], [facility] Medical History CAD (coronary artery disease) IBS (irritable bowel syndrome) Exocrine pancreatic insufficiency Lichen sclerosus Cough Bilateral knee pain Rectal prolapse Pre-op examination Small intestinal bacterial overgrowth Appendicitis Kidney stone Carpal tunnel syndrome Right shoulder injury Vertigo Chronic headaches Diverticulosis Fibromyalgia Depression Surgical History H/O uterosacral colpopexy H/O breast surgery S/P triple vessel bypass History of endometrial ablation History of esophagogastroduodenoscopy (EGD) Hx of colonoscopy Hx of carpal tunnel repair (~07/2019) Hx of rotator cuff surgery Hx of shoulder surgery Hx of appendectomy Hx of cholecystectomy Family History Father Myocardial infarction, Onset Age: 46 Mother Congestive heart failure Stomach problems Stomach ulcer Anxiety and depression Myocardial infarction, Onset Age: 50 Mental health disorder Sister Heart problem Myocardial infarction, Onset Age: 59 Sister Afib Brother Throat cancer Lung cancer Social History Household Members: Family Housing: Apartment Alcohol intake: never Patient Tobacco Use Status: Former Tobacco user Tobacco use type: Cigarette Years Smoked: 30 +/- e-Cigarette/Vaping Use: Never Used Second Hand Smoke Exposure: No Advance Directives Date on File: 02/25/22 service: No Current occupational status: disabled 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 Cognitive needs: No Hearing needs: No Vision needs: Yes (Glasses) Female Reproductive History Menstrual Age of Menarche: 15 Total pregnancies: 5 Full term: 5 Number of Living Children: 5 Date of last pap smear: 09/06/22 (neg pap and hpv) History of abnormal pap smear: Yes (09/12 ascus) Date of Mammogram: 02/14/22 (Birad 1) Review of Systems Const All systems reviewed & are unremarkable except as noted in HPI and below Reports as per HPI Eyes Reports no additional complaints ENT Reports no additional complaints Card Reports no additional complaints Resp Reports no additional complaints GI Reports as per HPI and Reports no additional complaints Reports as per HPI Musc Reports no additional complaints Skin/Breast Reports as per HPI Neuro Reports no additional complaints Psych Reports no additional complaints Endo Reports no additional complaints Elpidio/Lymph Reports no additional complaints Aller/Immun Reports no additional complaints Physical Exam Vital Signs: Last Vital Signs BP 122/76 09/17/24 10:09 Const General: cooperative, healthy appearing, no acute distress, well developed and alert Orientation/consciousness: patient oriented x3 HEENT Head: Yes normal to inspection Eyes General: appearance normal, both eyes and all related structures Neck Neck: Yes normal visual inspection Thyroid: Thyroid normal Chest Other: tender around scar at midline Chest palpation & inspection: normal inspection of the chest and other (no puckering, dimpling, peau de orange, retraction, discharge, masses) Breast/axilla inspection: normal inspection of the breasts Breast/axilla palpation: normal palpation of the breasts Resp Effort & Inspection: normal respiratory effort GI Inspection: Yes normal to inspection and Yes scar Palpation (GI): Soft to palpation Rectal Exam - Female: deferred Other: vulvar hypopigmentation kassidy-clitoral area, no lesion. Comedone on right gluteal area, not infected. General: Yes bladder normal to palpation External Female Exam: normal external appearance and normal appearance of the urethra Speculum Exam - Vagina: normal appearance of the vagina, normal palpation and normal vaginal discharge Speculum Exam - Cervix: normal appearance of the cervix and normal palpation Bimanual exam- vagina & uterus: normal bimanual exam, normal palpation, uterine size normal, bladder normal to palpation, normal palpation and non-tender Bimanual Exam- Adnexa, other: no masses Skin General skin exam: no rashes or lesions noted Rashes: no rashes Neuro General: patient oriented x3 Cognition (Neuro): normal cognition Extrem General: Yes normal to inspection Psych Attitude: cooperative Thought process: Normal thought process present Assessment & Plan Assessment & Plan (1) Encounter for well woman exam with routine gynecological exam: Code(s): Z01.419 - Encounter for gynecological examination (general) (routine) without abnormal findings Category: Medical Plan: Discussed: Current recommendations for pap smears per ASCCP guidelines. Breast awareness, periodic self breast exams and yearly mammogram. Maintain a healthy lifestyle, well balanced diet including Calcium 1,200 mg and Vitamin D 600 IU daily, and routine exercise if tolerated. Skin findings-comedone, no treatment unless infected/irritated. Refill on medication for LS, advised to use more often twice weekly, apply lying down for access. Use of condoms for STI prevention if indicated. Contact the office with any postmenopausal bleeding. Patient verbalizes understanding and agrees to the plan of care. She was given opportunity to ask questions and all questions were answered to the best of my ability. 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 This note is constructed using voice recognition software. While every effort has been made to ensure accuracy, pressure tester operator errors may have been included. Orders: Orders Bacterial Vaginosis Panel Today N89.8 - Other specified noninflammatory disorders of vagina Medications: Refilled betamethasone, augmented 0.05 % apply a thin a coat to area nightly for two weeks, then every other night for two weeks, then twice a week 1 appl topical DAILY 8 weeks 45 grams 1RF Coding Level of Care Code Est Pt Prev Care 40-64y(33409) Diagnoses Encounter for well woman exam with routine gynecological exam Z01.419
[2024-09-17 10:09] VITALS: BP 122/76
--- OUTSIDE RECORDS SUMMARY | 2024-09-17 11:28 | XMS_ITS | Clinical Summary ---
Author Organization [facility] Address [address] [place] [address] Care Team Providers Care Technical Clerk Name Role Phone Peri Joe PA-C Primary Care Provider [phone] Source Comments PLEASE NOTE, if this patient [...] Overview (03/24/2015): Seen by Dr Merrill at [facility] on 03/04/2015: Xrays done which showed an [...] when follow up occurs. Pt seen at [facility]: on 02/16/2015: Given Mobic: referred for MRi of shoulder for possible rotator cuff tear. Seen 03/23/2015: Will obtain MRI due to increase complaint. consider injections. Seen By Dr Ambrose at [facility] on 06/23/2015: Pt has right shoulder rotator [...] in the patellofemoral compartment. Pt seen at [facility] on 06/24/2015: will obtain ortho evaluation for knee. IBS (irritable bowel syndrome) 05/05/2014 Overview (05/20/2014): EGD normal 2007. Duodenal biopsy normal. Colonic biopsy normal. Barium enema normal. Migraines 05/05/2014 Chronic low back pain 05/05/2014 Overview (02/24/2015): MRI w/o contrast done 06/23/2013 at [place] of lumbar spine: impression: at T9- T10 there is a small left paramedian /posterior disc herniation seen in the sagittal sequences. Mild ligamentous bulging and minor facet arthropathy of the lower lumbar spine as described. No focal nerve root compression. Xray done of lumbosacral spine done at [place] on 04/03/14: similar appearing mild degenerative changes. [...] on file Insurance [employer] Care Teams Technical Clerk Relationship Specialty Start Date End Date Peri Joe PA-C [address] [place] [address] PCP - General 04/18/18
--- OUTSIDE RECORDS SUMMARY | 2024-09-17 11:28 | XMS_ITS | Clinical Summary ---
Author Organization [facility] Address [address] [address] Care Team Providers Care Regional Account Manager Name Role Phone Unavailable Primary Care Provider [...] Comments Breast Cancer Screening 1965 Pneumococcal Vaccine: 50+ Ye ars (2 of 2 - PCV) 11/16/2007 11/15/2006 Colorectal Cancer Screening: Annual FOBT 2013 Colorectal Cancer Screening: Colonoscopy 2013 Colorectal Cancer Screening: Sigmoidoscopy 2013 Influenza Vaccine (Season Ended) 2025 Pneumococcal Vaccine: Peds ( 0 to 5 Years) and At-Risk Patients (6 to 49 Years) Discontinued 11/15/2006 Hepatitis B Vaccine Aged Out No longe r eligible based on patient's age to complete this topic Insurance [place]
== END 2024-09-17 10:47 | disposition home or self-care (01) ==
LOC: HO.HWS 10:05
PROVIDERS: PCP Physician Assistant; Visit Provider Advanced Practice Midwife
DX: Z01.419 Encounter for gynecological examination (general) (routine) without abnormal findings (principal)
CPT/HCPCS: G0101

== ENCOUNTER 2024-09-30 10:03 | Emergency (ER) | payer MEDICARE, MEDICAID, SELFPAY ==
--- NOTE | ~2024-09-30 | XR_ITS ---
EXAMINATION: XR CHEST CLINICAL INFORMATION: chest pain COMPARISON: August 02, 2024. TECHNIQUE: Frontal view of the chest was obtained. FINDINGS: Pulmonary reticular pattern. No consolidation, pleural effusion or pneumothorax. Sternal wires and vascular clips in the mediastinum likely related to CABG procedure. Complications in the aortic arch. Cardiomediastinal silhouette size is normal. Multilevel thoracic spondylosis. Generative changes in the acromioclavicular joints. Vascular clips right upper quadrant abdomen. XR/XR chest 1V IMPRESSION: No acute airspace disease. Atherosclerosis disease, aorta. Cardiac disease should be considered. Electronically signed by: Ean Dixon MD 09/30/2024 10:41 AM EDT
[2024-09-30 10:10] VITALS: BP 146/70; BP 164/90; PULSE 76; PULSE 82; RESP 18; TEMP 36.7; O2SAT 97; O2SAT 99; BMI 41.4
--- NOTE | 2024-09-30 10:20 | ECG_ITS ---
Test Reason : chest pain Blood Pressure : */* mmHG Vent. Rate : 64 BPM Atrial Rate : 64 BPM P-R Int : 160 ms QRS Dur : 86 ms QT Int : 396 ms P-R-T Axes : 38 33 59 degrees QTcB Int : 408 ms Normal sinus rhythm Normal ECG When compared with ECG of 02-Aug-2024 13:04, Vent. rate has decreased by 42 bpm Referred By: Hope Estevez Electronically Signed By: JUNG OSMAN
--- NOTE | 2024-09-30 10:26 | ED.BACK ---
HPI - Back Pain/Injury General Chief Complaint: Back Pain/Injury Stated Complaint: BACK PAIN WHILE HANGING PLANT PER EMS Source: patient, EMS and old records reviewed Mode of arrival: EMS Limitations: no limitations History of Present Illness ED Provider: SAMANTHA HPI Narrative: 59 yo female with PMH of tracheobronchitis, intercostal neuralgia and sternal pain post 3V CABG 2 years ago, anemia, IBS, asthma, anxiety, HTN, JULIO who presents with chest wall pain and thoracic pain after raising both arms to hang a spider plant. She notes due to her pain she does not normally do these activities. She has mild nausea and anxiety with mild dyspnea. Her pain started after raising both arms. She was worried she was having a heart attack. Due to sternum pain her kids normally do activities like this before - it has been a long time since she has moved or exerted her chest like this in the past. MD elicited complaint: back injury (chest pain) Pertinent past history: other Onset (ago): minute(s) (20) Timing: constant Severity: moderate Similar Symptoms Previously: Yes Quality: sharp Location: thoracic spine (chest pain) Exacerbating factors: none Relieving factors: immobilization Context: while lifting Associated symptoms: denies other symptoms Work related injury: No Related Data Home Medications ?Medication ?Instructions ?Recorded ?Confirmed aspirin 81 mg tablet,delayed 81 mg PO DAILY@1800 01/03/24 08/02/24 release (Enteric Coated Aspirin) budesonide 32 mcg/actuation nasal 2 spray intranasal DAILY 08/02/24 08/02/24 spray Previous Rx's ?Medication ?Instructions ?Recorded loratadine 10 mg tablet 10 mg PO DAILY #90 tabs 04/01/24 riboflavin (vitamin B2) 50 mg 50 mg PO DAILY 90 days #90 tabs 04/01/24 tablet alirocumab 75 mg/mL subcutaneous 75 mg subcut Q14D #2 mL 04/30/24 pen injector (Praluent Pen) cholecalciferol (vitamin D3) 50 50 mcg PO DAILY #90 caps 06/26/24 mcg (2,000 unit) capsule Xopenex HFA 45 mcg/actuation 2 inh inhalation Q6H 30 days #15 07/01/24 aerosol inhaler (levalbuterol grams tartrate) vitamin B complex (Vitamins B 1 tab PO DAILY 90 days #90 tabs 03/03/25 Complex tablet) prednisone 50 mg tablet 50 mg PO DAILY 4 days #4 tabs 08/02/24 levalbuterol HCl 0.63 mg/3 mL 0.63 mg (3 mL) inhalation TID PRN 08/12/24 solution for nebulization shortness of breath or wheezing 30 days #90 mL levalbuterol HCl 0.63 mg/3 mL 0.63 mg (3 mL) inhalation TID PRN 08/22/24 solution for nebulization shortness of breath or wheezing 30 days #90 mL betamethasone, augmented 0.05 % 1 appl topical DAILY 8 weeks #45 09/17/24 topical ointment grams lidocaine 5 % topical patch 1 patch topical DAILY #30 ea 09/30/24 methocarbamol 750 mg tablet 750 mg PO BID PRN muscle spasm #20 09/30/24 tabs Allergies Allergy/AdvReac Type Severity Reaction Status Date / Time calcium [Calcium] Allergy Severe HIVES Verified 09/30/24 10:13 doxycycline [Doxycycline] Allergy Severe FACIAL Verified 09/30/24 10:13 SWELLING,almost killed pt,inhouse for weakness,,incontinence?seizures Penicillins Allergy Severe Facial Verified 09/30/24 10:13 Swelling lactose Allergy Mild Unknown Verified 09/30/24 10:13 amoxicillin Allergy Unknown Throat Verified 09/30/24 10:13 swelling azithromycin [AZITHROMYCIN] Allergy Unknown Bloody Verified 09/30/24 10:13 Diarrhea cefuroxime [CEFUROXIME] Allergy Unknown Angioedema Verified 09/30/24 10:13 ciprofloxacin [From Cipro] Allergy Unknown Unknown Verified 09/30/24 10:13 clindamycin [CLINDAMYCIN] Allergy Unknown Anaphylaxis Verified 09/30/24 10:13 erythromycin base Allergy Unknown Diarrhea Verified 09/30/24 10:13 iron Allergy Unknown Unknown Verified 09/30/24 10:13 levofloxacin [From Levaquin] Allergy Unknown Unknown Verified 09/30/24 10:13 linezolid Allergy Unknown Hives Verified 09/30/24 10:13 peanut [Peanut] Allergy Unknown Itching Verified 09/30/24 10:13 penicillin V Allergy Unknown ears and Verified 09/30/24 10:13 face swell,throat swell Sulfa (Sulfonamide Allergy Unknown ANAPHYLAXIS, Verified 09/30/24 10:13 Antibiotics) swelling [SULFA(SULFONAMIDE body,welts ANTIBIOTICS)] [id number] Reductase AdvReac Severe Muscle Pain Verified 09/30/24 10:13 Inhibitor aspirin AdvReac Intermediate Swelling Verified 09/30/24 10:13 cefazolin AdvReac Mild Anaphylaxis Verified 09/30/24 10:13 cheetos Allergy Unknown itchy, rash Uncoded 09/30/24 10:13 cranberry juice Allergy Unknown mouth Uncoded 09/30/24 10:13 itchy, bumps grape juice Allergy Unknown mouth Uncoded 09/30/24 10:13 itchy, bumps RAISIN Allergy Unknown Itching Uncoded 09/30/24 10:13 TURNIPS Allergy Unknown Unknown Uncoded 09/30/24 10:13 Plavix/clopidogrel AdvReac Intermediate Fatigued, Uncoded 09/30/24 10:13 dizziness, lightheadedness Review of Systems Review of Systems: Constitutional : No Weight loss, No Fever, No Chills, ENT/Mouth : No Hearing loss, No Ear Pain, No Nasal Congestion, No Sinus Pain, No Hoarseness, No sore throat, No Rhinorrhea, No Swallowing Difficulty Cardiovascular : pos Chest Pain, No SOB Respiratory : No Cough, No Dyspnea Gastrointestinal : No Nausea, No Vomiting, No Diarrhea, No abdominal Pain, No Hematochezia, No Melena Genitourinary : No Dysuria, No Urinary Frequency, No Hematuria, No Urinary Incontinence, Musculoskeletal : positive back pain Skin : No Skin Lesions, No rash Neuro : No Weakness, No Numbness, No Paresthesias, no loss of bowel or bladder incontinence, no saddle anesthesia All other systems reviewed and are negative PMFSH Past Medical History Attestation statement: The following information was validated with the patient. Source: old records reviewed Medical History CAD (coronary artery disease) IBS (irritable bowel syndrome) Exocrine pancreatic insufficiency Lichen sclerosus Cough Bilateral knee pain Rectal prolapse Pre-op examination Small intestinal bacterial overgrowth Appendicitis Kidney stone Carpal tunnel syndrome Right shoulder injury Vertigo Chronic headaches Diverticulosis Fibromyalgia Depression Surgical History H/O uterosacral colpopexy H/O breast surgery S/P triple vessel bypass History of endometrial ablation History of esophagogastroduodenoscopy (EGD) Hx of colonoscopy Hx of carpal tunnel repair (~07/2019) Hx of rotator cuff surgery Hx of shoulder surgery Hx of appendectomy Hx of cholecystectomy Family History Family History Father Myocardial infarction, Onset Age: 46 Mother Congestive heart failure Stomach problems Stomach ulcer Anxiety and depression Myocardial infarction, Onset Age: 50 Mental health disorder Sister Heart problem Myocardial infarction, Onset Age: 59 Sister Afib Brother Throat cancer Lung cancer Social History Social History Household Members: Family Housing: Apartment Alcohol intake: never Patient Tobacco Use Status: Former Tobacco user Tobacco use type: Cigarette Years Smoked: 30 +/- Smoked in Last 30 Days: No e-Cigarette/Vaping Use: Never Used Second Hand Smoke Exposure: No Use of substances other than those prescribed or required for medical reasons: No Advance Directives: Yes Advance Directives on File: Yes Advance Directives Date on File: 02/25/22 Do you have a plan to hurt others: No Plan Patient : No service: No Current occupational status: disabled 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 Oriented X3. No acute distress. Eyes: Pupils equal, round and reactive to light. ENT: Pharynx normal. Neck: Normal inspection. Neck supple. CVS: Normal heart rate and rhythm. Pulses normal. Chest: ttp along entire sternum Back: ttp along R thoracic paraspinal muscles Respiratory: No respiratory distress. Breath sounds normal. Abdomen: Soft and nontender. Skin: Skin warm and dry. Normal skin color. Normal skin turgor. Extremities: No lower extremity edema. No calf ttp Neuro: Oriented X 3. No motor deficit. No sensory deficit. CN2-12 intact Medications Administered Discontinued Medications Generic Name Dose Route Start Last Admin Trade Name Freq PRN Reason Stop Dose Admin Oxycodone HCl 5 mg 09/30/24 10:19 09/30/24 10:31 Oxycodone Hcl Immed Release 5 Mg Tablet PO 09/30/24 10:20 5 mg ONCE ONE Administration Medical Decision Making Medical Decision Making [facility] Narrative: 59 yo female with PMH of tracheobronchitis, intercostal neuralgia and sternal pain post 3V CABG 2 years ago, anemia, IBS, asthma, anxiety, HTN, JULIO who c/o chest wall pain and back pain after lifting something she was fine before - at this time given hx will obtain labs, EKG, trop x 2, start on PO pain control. All pain is reproducible doubt ACS/VTE. Started after lifting which she cannot do post surgery Differential Diagnosis Differential Diagnoses: The differential diagnosis associated with the presentation includes back strain, sternum pain, MSK pain doubt ACS or VTE dissection seems atypical for VTE or ACS Admission/Observation Consideration of admission/observation: Escalation of care including admission/observation considered negative workup stable for DC Lab Data [facility] Lab Attestation statement: I reviewed the patient's lab results. 09/30/24 11:48 09/30/24 11:48 Labs: Lab Results 09/30/24 09/30/24 Range/Units 11:48 15:25 WBC 10.0 (4.8-10.8) X10*3/uL RBC 5.14 (4.20-5.50) X10*6/uL Hgb 13.2 (12.0-16.0) g/dl Hct 42.0 (37.0-47.0) % MCV 81.7 (80.0-98.0) fL MCH 25.7 L (27.0-33.0) pg MCHC 31.4 (31.0-35.0) g/dl RDW 15.2 (11.0-16.0) % Plt Count 367 (160-400) X10*3/uL MPV 10.0 (9.4-12.3) fL Immature Gran % (Auto) 0.4 (0.0-0.4) % Neut % (Auto) 62.5 (45-73) % Lymph % (Auto) 25.2 (20-40) % [place] % (Auto) 7.3 (2-11) % Eos % (Auto) 3.8 (0-4) % Baso % (Auto) 0.8 (0-2) % Lymph # (Auto) 2.5 (1.2-4.9) X10*3/uL [place] # (Auto) 0.7 (0.1-1.2) X10*3/uL Eos # (Auto) 0.4 (0.0-0.4) X10*3/uL Baso # (Auto) 0.1 (0.0-0.2) X10*3/uL Abs Immat Gran (auto) 0.04 H (0.00-0.03) X10*3/uL Absolute Neuts (auto) 6.3 (2.0-8.3) x10*3/uL Absolute Nucleated RBC 0.000 (0.0-0.012) X10*3/uL Nucleated RBC % (auto) 0.0 (0.0-0.2) /100WBC Sodium 138 (135-145) mmol/L Potassium 4.2 (3.3-5.1) mmol/L Chloride 105 (96-108) mmol/L Carbon Dioxide 27 (22-29) mmol/L Anion Gap 10 L (12-20) BUN 16 (9-16) mg/dL Creatinine 0.95 (0.5-1.4) mg/dL Estim Creat Clear Calc 68.0 Estimated GFR > 60 Random Glucose 119 H (60-115) mg/dL Calcium 9.2 (8.4-10.2) mg/dL Magnesium 2.2 (1.6-2.6) mg/dL Total Bilirubin 0.4 (0.0-1.0) mg/dL Direct Bilirubin 0.1 (0.0-0.5) mg/dL AST 20 (5-31) U/L ALT 26 (0-31) U/L Alkaline Phosphatase 117 (39-117) U/L Troponin I High Sens < 2.7 (<3.5-17.0) ng/L Troponin I Hi Sens Base < 2.7 (<3.5-17.0) ng/L Troponin I Hi Sens 2 Hr < 2.7 (<3.5-17.0) ng/L Total Protein 7.0 (6.5-8.0) g/dL Albumin 3.9 (3.5-5.0) g/dL Independent Interpretation I performed an independent interpretation of an: EKG and Plain X-Ray (normal ) Interpretation: Rate: 64 Rhythm: [place]: normal Normal P waves. Normal SULEMAN. Normal QRS complex. ST T wave : inverted t waves V1 and V2, no MAURI qTC: 408 prior studies: prior t wave inversions 2023 The study has been interpreted contemporaneously by me. . Radiology Impression Discussion of test interpretation with radiology: I have reviewed the radiologist's reading. Independent Historian Clinical information obtained from an independent historian. History obtained from or confirmed by: EMS External Record Review External record reviewed: Inpatient record and Outpatient record Prescription Management I considered prescription management with: Other Discharge Plan Discharge Clinical Impression: Strain of chest wall Qualifiers: Encounter type: initial encounter Qualified Code(s): S29.011A - Strain of muscle and tendon of front wall of thorax, initial encounter Patient Disposition: Home, Self-Care Instructions: Muscle Strain (ED), Chest Wall Pain (ED) Additional Instructions: EKG, chest xray and repeat hearts tests are reassuring at this time will start you on a muscle relaxer it does have tylenol in it so do not take extra tylenol return for any worsening symptoms or concerns make sure you are following up with your trade specialist given your persistent limitations and pain post surgery Prescriptions: New methocarbamol 750 mg tablet 750 mg PO BID PRN (Reason: muscle spasm) Qty: 20 0RF lidocaine 5 % adhesive patch,medicated 1 patch topical DAILY Qty: 30 0RF Rx Instructions: leave on most painful area for up to 12 hrs No Action riboflavin (vitamin B2) 50 mg tablet 50 mg PO DAILY 90 Days Qty: 90 2RF loratadine 10 mg tablet 10 mg PO DAILY Qty: 90 1RF Praluent Pen 75 mg/mL pen injector 75 mg subcut Q14D Qty: 2 6RF cholecalciferol (vitamin D3) 50 mcg (2,000 unit) capsule 50 mcg PO DAILY Qty: 90 3RF levalbuterol tartrate [Xopenex HFA] 45 mcg/actuation HFA aerosol inhaler 2 inh inhalation Q6H 30 Days Qty: 15 6RF levalbuterol HCl 0.63 mg/3 mL solution for nebulization 0.63 mg inhalation TID PRN (Reason: shortness of breath or wheezing) 30 Days Qty: 90 3RF levalbuterol HCl 0.63 mg/3 mL solution for nebulization 0.63 mg inhalation TID PRN (Reason: shortness of breath or wheezing) 30 Days Qty: 90 0RF prednisone 50 mg tablet 50 mg PO DAILY 4 Days Qty: 4 0RF budesonide 32 mcg/actuation spray,non-aerosol 2 spray intranasal DAILY Rx Instructions: administer into each nostril aspirin [Enteric Coated Aspirin] 81 mg tablet,delayed release (DR/EC) 81 mg PO DAILY@1800 betamethasone, augmented 0.05 % ointment 1 appl topical DAILY 56 Days Qty: 45 1RF Rx Instructions: apply a thin a coat to area nightly for two weeks, then every other night for two weeks, then twice a week vitamin B complex [Vitamins B Complex] Tablet 1 tab PO DAILY 90 Days Qty: 90 1RF Print Language: Turkish
[2024-09-30] MEDS: oxyCODONE HCl Immed Release 5 MG TABLET PO (10:31)
[2024-09-30 10:59] VITALS: BP 154/42; PULSE 73; RESP 14; O2SAT 96
--- NOTE | 2024-09-30 11:03 | PC.NURSE ---
Patient is a 59 yo female with PMH of tracheobronchitis, intercostal neuralgia and sternal pain post 3V CABG 2 years ago, anemia, IBS, asthma, anxiety, HTN, JULIO who presents with chest wall pain and thoracic pain after hanging a spider plant. Alert and oriented, appears sl anxious. fur pointer applied and NSR noted. Continues to c/o substernal chest pain radiating to her back, increasing with movement. Lungs clear bilat. Respirations even and non-labored. Abdomen soft, distended with positive bowel sounds. Positive pedal pulses with no edema.
[2024-09-30 11:54] LABS: MANUAL DIFF FLAG NO
[2024-09-30 11:57] LABS: Basophils Absolute Auto 0.1 X10*3/uL (0.0-0.2); Basophils Percent Auto 0.8 % (0-2); Eosinophils Absolute Auto 0.4 X10*3/uL (0.0-0.4); Eosinophils Percent Auto 3.8 % (0-4); Hemoglobin 13.2 g/dl (12.0-16.0); Imm Gran Abs Auto 0.04 X10*3/uL (0.00-0.03); Imm Gran Pct Auto 0.4 % (0.0-0.4); Lymphocytes Absolute Auto 2.5 X10*3/uL (1.2-4.9); Lymphocytes Percent Auto 25.2 % (20-40); Mean Corpuscular HGB Conc 31.4 g/dl (31.0-35.0); Mean Corpuscular Hemoglobin 25.7 pg (27.0-33.0); Mean Corpuscular Volume 81.7 fL (80.0-98.0); Monocytes Absolute Auto 0.7 X10*3/uL (0.1-1.2); Monocytes Percent Auto 7.3 % (2-11); Neutrophils Absolute Auto 6.3 x10*3/uL (2.0-8.3); Neutrophils Percent Auto 62.5 % (45-73); Platelet Count 367 X10*3/uL (160-400); Red Blood Count 5.14 X10*6/uL (4.20-5.50); Red Cell Distribution Width 15.2 % (11.0-16.0)
[2024-09-30 12:11] LABS: Alanine Aminotransferase 26 U/L (0-31); Albumin Level 3.9 g/dL (3.5-5.0); Alkaline Phosphatase 117 U/L (39-117); Anion Gap 10 (12-20); Aspartate Amino Transferase 20 U/L (5-31); Bilirubin Direct 0.1 mg/dL (0.0-0.5); Bilirubin Total 0.4 mg/dL (0.0-1.0); Blood Urea Nitrogen 16 mg/dL (9-16); Calcium 9.2 mg/dL (8.4-10.2); Carbon Dioxide 27 mmol/L (22-29); Chloride 105 mmol/L (96-108); Estimated Glomerular Filt Rate > 60; Glucose Random 119 mg/dL (60-115); Magnesium 2.2 mg/dL (1.6-2.6); Potassium 4.2 mmol/L (3.3-5.1); Sodium 138 mmol/L (135-145)
[2024-09-30 12:29] LABS: Troponin-I High Sens Reflx 2hr < 2.7 ng/L (<3.5-17.0)
--- OUTSIDE RECORDS SUMMARY | 2024-09-30 12:37 | XMS_ITS | Clinical Summary ---
Author Organization [facility] Address [address] [place] [address] Care Team Providers Care Cafeteria Or Lunchroom Checker Name Role Phone Peri Joe PA-C Primary Care Provider [phone] Source Comments PLEASE NOTE, if this patient [...] Overview (03/24/2015): Seen by Dr Merrill at [facility] on 03/04/2015: Xrays done which showed [...] when follow up occurs. Pt seen at [facility]: on 02/16/2015: Given Mobic: referred for MRi of shoulder for possible rotator cuff tear. Seen 03/23/2015: Will obtain MRI due to increase complaint. consider injections. Seen By Dr Ambrose at [facility] on 06/23/2015: Pt has right shoulder [...] in the patellofemoral compartment. Pt seen at [facility] on 06/24/2015: will obtain ortho evaluation for knee. IBS (irritable bowel syndrome) 05/05/2014 Overview (05/20/2014): EGD normal 2007. Duodenal biopsy normal. Colonic biopsy normal. Barium enema normal. Migraines 05/05/2014 Chronic low back pain 05/05/2014 Overview (02/24/2015): MRI w/o contrast done 06/23/2013 at [facility] of lumbar spine: impression: at T9- T10 there is a small left paramedian /posterior disc herniation seen in the sagittal sequences. Mild ligamentous bulging and minor facet arthropathy of the lower lumbar spine as described. No focal nerve root compression. Xray done of lumbosacral spine done at [facility] on 04/03/14: similar appearing mild degenerative changes. Xray done of lumbosacral spine with obliques done at on 02/18/13: mild degenerative changes. Multiple allergies 05/05/2014 Resolved Problems Problem Noted Date Diagnosed Date Resolved Date Bronchitis 05/05/2014 01/15/2021 Immunizations Immunization Administration Dates Next Due MENINGOCOCCAL VACCINE,CONJUG ATE (NON-INTERFACE) 01/15/2007 PNEUMOCOCCAL POLYSACCHARIDE PPV23 (Pneumovax 23) 11/15/2006 Rabies (RABAVERT) - IM fibro blast culture 01/19/2007,01/05/2007,12/29/2006,12/25,12/22/2006 Rabies Immune Globulin, Heat Treated 12/22/2006 Td(adult),2 [...] of Treatment Not on file Insurance [employer] [facility] Care Teams Cafeteria Or Lunchroom Checker Relationship Specialty Start Date End Date Peri Joe PA-C [address] [place] [address] PCP - General 04/18/18
--- OUTSIDE RECORDS SUMMARY | 2024-09-30 12:37 | XMS_ITS | Clinical Summary ---
Author Organization [facility] Facility Address [address] [address] Care Team Providers Care Vice President Of Nursing Name Role Phone Unavailable Primary Care Provider [...]
[2024-09-30 13:52] LABS: Reflex Trop? Y
[2024-09-30 14:00] VITALS: BP 127/61; PULSE 65; RESP 14; TEMP 36.7; O2SAT 98
[2024-09-30 15:55] LABS: Troponin-I High Sensitivity < 2.7 ng/L (<3.5-17.0); zTroponin-I High Sen Reflex #2 < 2.7 ng/L (<3.5-17.0)
[2024-09-30 16:00] VITALS: BP 167/80; PULSE 70; RESP 14; TEMP 36.1; O2SAT 96
[2024-09-30 16:15] VITALS: BP 167/80; PULSE 70; RESP 14; TEMP 36.1; O2SAT 96
== END 2024-09-30 16:17 | disposition home or self-care (01) ==
PROVIDERS: Emergency Provider Emergency Medicine; PCP Physician Assistant
DX: R07.89 Other chest pain (principal); I25.10 Atherosclerotic heart disease of native coronary artery without angina pectoris; I10 Essential (primary) hypertension; Z79.899 Other long term (current) drug therapy
CPT/HCPCS: 36415; 71045; 80048; 80076; 83735; 84484; 85025; 93005; 99283; 99285

== ENCOUNTER → 2024-09-30 10:20 | Outpatient (BNV) | payer MEDICARE, MEDICAID, SELFPAY | PROVIDERS: Emergency Provider Emergency Medicine; PCP Physician Assistant; Visit Provider Internal Medicine | DX: R07.9 Chest pain, unspecified (principal) | CPT/HCPCS: 93010 ==

== ENCOUNTER → 2024-09-30 10:20 | Outpatient (BNV) | payer MEDICARE, MEDICAID, SELFPAY | PROVIDERS: Emergency Provider Emergency Medicine; PCP Physician Assistant; Visit Provider Radiology Diagnostic Radiology | DX: I70.0 Atherosclerosis of aorta (principal) | CPT/HCPCS: 71045 ==

== ENCOUNTER 2024-10-22 14:47 | Outpatient (REF) | payer MEDICARE, MEDICAID, SELFPAY ==
--- OUTSIDE RECORDS SUMMARY | 2024-10-22 14:50 | XMS_ITS | Clinical Summary ---
Author Organization [facility] Facility Address [address] [address] Care Team Providers Care Manager Market Research Name Role Phone Unavailable Primary Care Provider [...]
== END 2024-10-22 14:48 | disposition home or self-care (01) ==
LOC: HO.MAMMO 14:47
PROVIDERS: PCP Physician Assistant; Visit Provider Physician Assistant
DX: Z12.31 Encounter for screening mammogram for malignant neoplasm of breast (principal)
CPT/HCPCS: 77063; 77067

== ENCOUNTER → 2024-10-22 15:15 | Outpatient (BNV) | payer MEDICARE, MEDICAID, SELFPAY | PROVIDERS: PCP Physician Assistant; Visit Provider Internal Medicine | DX: Z12.31 Encounter for screening mammogram for malignant neoplasm of breast (principal) | CPT/HCPCS: 77063; 77067 ==

== ENCOUNTER 2024-10-25 11:57 | Outpatient (REF) | payer MEDICARE, MEDICAID, SELFPAY ==
--- NOTE | ~2024-10-25 | XR_ITS ---
EXAMINATION: XR FOOT 3 OR MORE VIEWS RIGHT HISTORY: M79.671 - Pain in right foot COMPARISON: Comparison is made with the prior examination dated 01/02/2022. FINDINGS: Three views of the right foot are submitted. Osseous mineralization is normal. There is no fracture or dislocation. The joint spaces are preserved. There are calcaneal spurs at the plantar aspect and at the insertion of the Achilles tendon. The soft tissues are unremarkable. XR/XR foot RT min 3V IMPRESSION: Calcaneal spurs. No evidence of fracture of the right foot. Electronically signed by: Jeronimo Smith MD 10/25/2024 12:56 PM EDT
== END 2024-10-25 11:58 | disposition home or self-care (01) ==
LOC: HO.HMGCX 11:57
PROVIDERS: PCP Physician Assistant; Visit Provider Nurse Practitioner Family
DX: M79.671 Pain in right foot (principal)
CPT/HCPCS: 73630; 99212

== ENCOUNTER 2024-10-25 11:57 | Outpatient (AMB) | payer MEDICARE, MEDICAID, SELFPAY ==
--- NOTE | 2024-10-25 12:01 | AM.OFFWIN_ITS ---
Intake Vital Signs 10/25/24 12:02 Height 5 ft 1 in Weight 200 lb BMI 37.8 BP 136/78 Blood Pressure Location Lt brachial Position Sitting Pulse 85 Pulse Source Pulse Oximeter Temp 98.1 F Temp Source Oral Pulse Oximetry (%) 98 Oxygen Delivery Method Room Air Intake Visit Reasons: EP Broken RT pinky toe? Intake Note: Pt presents to the office today for c/o right pinky toe pain. Pt states she broke that same toe 2 years ago. Pt states her toe went sideways and backward and made a cracking noise that happened today. Patient Tobacco Use Status: Former Tobacco user Allergies calcium [Calcium] Allergy (Severe, Verified 10/25/24 12:04) HIVES doxycycline [Doxycycline] Allergy (Severe, Verified 10/25/24 12:04) FACIAL SWELLING,almost killed pt,inhouse for weakness,,incontinence?seizures Penicillins Allergy (Severe, Verified 10/25/24 12:04) Facial Swelling lactose Allergy (Mild, Verified 10/25/24 12:04) Unknown amoxicillin Allergy (Unknown, Verified 10/25/24 12:04) Throat swelling azithromycin [AZITHROMYCIN] Allergy (Unknown, Verified 10/25/24 12:04) Bloody Diarrhea cefuroxime [CEFUROXIME] Allergy (Unknown, Verified 10/25/24 12:04) Angioedema ciprofloxacin [From Cipro] Allergy (Unknown, Verified 10/25/24 12:04) Unknown clindamycin [CLINDAMYCIN] Allergy (Unknown, Verified 10/25/24 12:04) Anaphylaxis erythromycin base Allergy (Unknown, Verified 10/25/24 12:04) Diarrhea iron Allergy (Unknown, Verified 10/25/24 12:04) Unknown levofloxacin [From Levaquin] Allergy (Unknown, Verified 10/25/24 12:04) Unknown linezolid Allergy (Unknown, Verified 10/25/24 12:04) Hives peanut [Peanut] Allergy (Unknown, Verified 10/25/24 12:04) Itching penicillin V Allergy (Unknown, Verified 10/25/24 12:04) ears and face swell,throat swell Sulfa (Sulfonamide Antibiotics) [SULFA(SULFONAMIDE ANTIBIOTICS)] Allergy (Unknown, Verified 10/25/24 12:04) ANAPHYLAXIS, swelling body,welts [id number] Reductase Inhibitor Adverse Reaction (Severe, Verified 10/25/24 12:04) Muscle Pain aspirin Adverse Reaction (Intermediate, Verified 10/25/24 12:04) Swelling cefazolin Adverse Reaction (Mild, Verified 10/25/24 12:04) Anaphylaxis cheetos Allergy (Unknown, Uncoded 10/25/24 12:04) itchy, rash cranberry juice Allergy (Unknown, Uncoded 10/25/24 12:04) mouth itchy, bumps grape juice Allergy (Unknown, Uncoded 10/25/24 12:04) mouth itchy, bumps RAISIN Allergy (Unknown, Uncoded 10/25/24 12:04) Itching TURNIPS Allergy (Unknown, Uncoded 10/25/24 12:04) Unknown Plavix/clopidogrel Adverse Reaction (Intermediate, Uncoded 10/25/24 12:04) Fatigued, dizziness, lightheadedness HPI EP Broken RT pinky toe? HPI Details This is a 59-year-old female patient who presents to the walk-in clinic today with report of right foot injury. She states that this morning, she was barefoot and hit her pinky toe on the base of her couch. She reports that toe bent sideways and caused pain up the outside aspect of her foot. She now has pain and swelling in that area. Able to walk but it is painful. History of right 5th toe fx in the past. [facility] Medical History CAD (coronary artery disease) IBS (irritable bowel syndrome) Exocrine pancreatic insufficiency Lichen sclerosus Cough Bilateral knee pain Rectal prolapse Pre-op examination Small intestinal bacterial overgrowth Appendicitis Kidney stone Carpal tunnel syndrome Right shoulder injury Vertigo Chronic headaches Diverticulosis Fibromyalgia Depression Surgical History H/O uterosacral colpopexy H/O breast surgery S/P triple vessel bypass History of endometrial ablation History of esophagogastroduodenoscopy (EGD) Hx of colonoscopy Hx of carpal tunnel repair (~07/2019) Hx of rotator cuff surgery Hx of shoulder surgery Hx of appendectomy Hx of cholecystectomy Family History Father Myocardial infarction, Onset Age: 46 Mother Congestive heart failure Stomach problems Stomach ulcer Anxiety and depression Myocardial infarction, Onset Age: 50 Mental health disorder Sister Heart problem Myocardial infarction, Onset Age: 59 Sister Afib Brother Throat cancer Lung cancer Social History Household Members: Family Housing: Apartment Alcohol intake: never Patient Tobacco Use Status: Former Tobacco user Tobacco use type: Cigarette Years Smoked: 30 +/- e-Cigarette/Vaping Use: Never Used Second Hand Smoke Exposure: No Advance Directives Date on File: 02/25/22 service: No Current occupational status: disabled 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 Cognitive needs: No Hearing needs: No Vision needs: Yes (Glasses) Female Reproductive History Menstrual Age of Menarche: 15 Review of Systems Const All systems reviewed & are unremarkable except as noted in HPI and below Physical Exam Vital Signs: Last Vital Signs Temp 98.1 F 10/25/24 12:02 Pulse 85 10/25/24 12:02 BP 136/78 10/25/24 12:02 Pulse Ox 98 10/25/24 12:02 Oxygen Delivery Method Room Air 10/25/24 12:02 BMI result Body Mass Index 37.8 Const General: cooperative and no acute distress Resp Effort & Inspection: normal respiratory effort Skin General skin exam: no rashes or lesions noted Extrem Other: erythema and mild swelling right 5th toe and lateral foot. Tenderness along toe and 5th metatarsal. Pain with standing. Normal cap refill. Normal ROM all toes however pain in 5th. Psych Appearance: grossly normal Mental Status: mental status grossly normal Speech and movement: Normal speech and movement present Assessment & Plan Assessment & Plan (1) Acute pain of right foot: Code(s): M79.671 - Pain in right foot Plan: X-ray of the right foot done in the office today does not reveal any acute fracture/findings. We discussed conservative measures including ice, elevation, compression, use of NSAIDs. I applied Luis wrap in the office today and educated patient how to do this at home. I will prescribe her a short course of meloxicam, which we reviewed indications, use, possible side effects of. We discussed that she should improve with time and conservative measures, however if she does not, or symptoms worsen/new symptoms develop, she can certainly return to the clinic for further evaluation. She verbalizes understanding and agrees to plan. Medications: New meloxicam Take 1 tablet by mouth daily as needed for pain/swelling for up to 7 days. 15 mg PO ONCE 7 days PRN 7 tabs 0RF pain, moderate M79.671 - Pain in right foot Coding Level of Care Code Est Pt Level 4 (03772) Diagnoses Acute pain of right foot M79.671
[2024-10-25 12:02] VITALS: BP 136/78; PULSE 85; TEMP 36.7; O2SAT 98; BMI 37.8
--- OUTSIDE RECORDS SUMMARY | 2024-10-25 12:42 | XMS_ITS | Clinical Summary ---
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
== END 2024-10-25 12:52 | disposition home or self-care (01) ==
PROVIDERS: PCP Physician Assistant; Visit Provider Nurse Practitioner Family
DX: M79.671 Pain in right foot (principal)

== ENCOUNTER → 2024-10-25 12:15 | Outpatient (BNV) | payer MEDICARE, MEDICAID, SELFPAY | PROVIDERS: PCP Physician Assistant; Visit Provider Radiology Diagnostic Radiology | DX: M77.31 Calcaneal spur, right foot (principal) | CPT/HCPCS: 73630 ==

== ENCOUNTER 2025-01-08 10:26 | Outpatient (AMB) | payer MEDICARE, MEDICAID, SELFPAY ==
--- NOTE | 2025-01-08 10:29 | A.OFFVIS_ITS ---
Vital Signs 01/08/25 10:30 Height 5 ft 1 in BMI Reason not done Patient refused/unable BP 118/60 Blood Pressure Location Lt brachial Position Sitting Pulse 86 Pulse Source Pulse Oximeter Intake Visit Reasons: 6m follow up Allergies calcium (Calcium) Allergy (Severe, Verified 10/25/24 12:04) HIVES doxycycline (Doxycycline) Allergy (Severe, Verified 10/25/24 12:04) FACIAL SWELLING,almost killed pt,inhouse for weakness,,incontinence?seizures Penicillins Allergy (Severe, Verified 10/25/24 12:04) Facial Swelling lactose Allergy (Mild, Verified 10/25/24 12:04) Unknown amoxicillin Allergy (Unknown, Verified 10/25/24 12:04) Throat swelling azithromycin (AZITHROMYCIN) Allergy (Unknown, Verified 10/25/24 12:04) Bloody Diarrhea cefuroxime (CEFUROXIME) Allergy (Unknown, Verified 10/25/24 12:04) Angioedema ciprofloxacin (From Cipro) Allergy (Unknown, Verified 10/25/24 12:04) Unknown clindamycin (CLINDAMYCIN) Allergy (Unknown, Verified 10/25/24 12:04) Anaphylaxis erythromycin base Allergy (Unknown, Verified 10/25/24 12:04) Diarrhea iron Allergy (Unknown, Verified 10/25/24 12:04) Unknown levofloxacin (From Levaquin) Allergy (Unknown, Verified 10/25/24 12:04) Unknown linezolid Allergy (Unknown, Verified 10/25/24 12:04) Hives peanut (Peanut) Allergy (Unknown, Verified 10/25/24 12:04) Itching penicillin V Allergy (Unknown, Verified 10/25/24 12:04) ears and face swell,throat swell Sulfa (Sulfonamide Antibiotics) (SULFA(SULFONAMIDE ANTIBIOTICS)) Allergy (Unknown, Verified 10/25/24 12:04) ANAPHYLAXIS, swelling body,welts [id number] Reductase Inhibitor Adverse Reaction (Severe, Verified 10/25/24 12:04) Muscle Pain aspirin Adverse Reaction (Intermediate, Verified 10/25/24 12:04) Swelling cefazolin Adverse Reaction (Mild, Verified 10/25/24 12:04) Anaphylaxis cheetos Allergy (Unknown, Uncoded 10/25/24 12:04) itchy, rash cranberry juice Allergy (Unknown, Uncoded 10/25/24 12:04) mouth itchy, bumps grape juice Allergy (Unknown, Uncoded 10/25/24 12:04) mouth itchy, bumps RAISIN Allergy (Unknown, Uncoded 10/25/24 12:04) Itching TURNIPS Allergy (Unknown, Uncoded 10/25/24 12:04) Unknown Plavix/clopidogrel Adverse Reaction (Intermediate, Uncoded 10/25/24 12:04) Fatigued, dizziness, lightheadedness Medication List - Last Reconciled 01/08/25 by Peter Quinn MD alirocumab (Praluent Pen) 75 mg subcut Q14D aspirin (Enteric Coated Aspirin) 81 mg PO DAILY@1800 betamethasone, augmented 0.05 % 1 appl topical DAILY 8 weeks budesonide 32 mcg/actuation 2 sprays intranasal DAILY cholecalciferol (vitamin D3) 50 mcg PO DAILY levalbuterol HCl 0.63 mg (3 mL) inhalation TID PRN 30 days levalbuterol HCl 0.63 mg (3 mL) inhalation TID PRN 30 days lidocaine 5% 1 patch topical DAILY loratadine 10 mg PO DAILY meloxicam 15 mg PO ONCE PRN 7 days methocarbamol 750 mg PO BID PRN nebulizer accessories As directed nebulizers (AeroEclipse XL Nebulizer) As directed riboflavin (vitamin B2) 50 mg PO DAILY 90 days vitamin B complex (Vitamins B Complex tablet) 1 tab PO DAILY 90 days Xopenex HFA 45 mcg/actuation (levalbuterol tartrate) 2 inhalations inhalation Q6H 30 days NS HPI Comments Details: Yomaira returns for follow-up. Previous patient of , but switched to me. In 2022, she was admitted for NSTEMI. Then underwent cardiac catheterization showing multivessel disease leading to bypass surgery. That was in turn complicated by sternal wound infection requiring debridement and she had wound VAC followed by antibiotics. Since that time, she has been having chest pain and has had CT scans but no overt findings on the same. I also discussed this directly with her cardiac surgeon as well -Dr. Patrick and he does not believe that there is anything else that needs to get done. He also stated to me that her pains could also be from flare-up of fibromyalgia. Still gets vague chest pains at different times, most likely from the fibromyalgia itself. Otherwise, she has had low blood pressure issues and then beta-blockers were stopped. She also has intolerance to statins. On Praluent, but she still reports nonspecific symptoms after taking the injection. She also has intolerance to antiplatelet drugs. She states she can not take Plavix. With regard aspirin, she is on enteric-coated aspirin. [facility] Medical History CAD (coronary artery disease) IBS (irritable bowel syndrome) Exocrine pancreatic insufficiency Lichen sclerosus Cough Bilateral knee pain Rectal prolapse Pre-op examination Small intestinal bacterial overgrowth Appendicitis Kidney stone Carpal tunnel syndrome Right shoulder injury Vertigo Chronic headaches Diverticulosis Fibromyalgia Depression Surgical History H/O uterosacral colpopexy H/O breast surgery S/P triple vessel bypass History of endometrial ablation History of esophagogastroduodenoscopy (EGD) Hx of colonoscopy Hx of carpal tunnel repair (~07/2019) Hx of rotator cuff surgery Hx of shoulder surgery Hx of appendectomy Hx of cholecystectomy Family History Father Myocardial infarction, Onset Age: 46 Mother Congestive heart failure Stomach problems Stomach ulcer Anxiety and depression Myocardial infarction, Onset Age: 50 Mental health disorder Sister Heart problem Myocardial infarction, Onset Age: 59 Sister Afib Brother Throat cancer Lung cancer Social History Household Members: Family Housing: Apartment Alcohol intake: never Patient Tobacco Use Status: Former Tobacco user Tobacco use type: Cigarette Years Smoked: 30 +/- e-Cigarette/Vaping Use: Never Used Second Hand Smoke Exposure: No Advance Directives Date on File: 02/25/22 service: No Current occupational status: disabled 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 Cognitive needs: No Hearing needs: No Vision needs: Yes (Glasses) Female Reproductive History Menstrual Age of Menarche: 15 Review of Systems Const Denies weakness ENT Denies dizziness Card Denies chest pain, Denies chest pain with activity, Denies syncope, Denies rapid heart rate, Denies pedal edema, Denies edema, Denies leg edema, Denies lightheadedness, Denies palpitations, Denies dyspnea, Denies dyspnea on exertion and Denies orthopnea Resp Denies cough, Denies dyspnea and Denies dyspnea on exertion GI Denies hematochezia and Denies change in stool character Musc Denies abnormal gait, Denies muscle cramps, Denies muscle weakness, Denies numbness, Denies radiating pain into limb and Denies tingling Neuro Denies abnormal gait, Denies dizziness, Denies syncope, Denies numbness, Denies tingling and Denies weakness Endo Denies palpitations Physical Exam Vital Signs: Last Vital Signs Pulse 86 01/08/25 10:30 BP 118/60 01/08/25 10:30 Const General: comfortable and no acute distress Orientation/consciousness: patient oriented x3 HEENT Other: Unremarkable Head: Yes normal to inspection Neck Neck: Yes normal visual inspection Chest Chest palpation & inspection: normal inspection of the chest Resp Auscultation: clear to auscultation bilaterally Cardio Palpation: normal PMI Heart sounds: S1 normal heart sound present, S2 normal heart sound present, no gallops, no murmurs and no rubs GI Palpation (GI): Soft to palpation Back/Spine/Pelvis Other: unremarkable Skin General skin exam: no rashes or lesions noted Neuro General: patient oriented x3 Extrem General: Yes normal to inspection Psych Mental Status: mental status grossly normal Assessment & Plan Assessment & Plan (1) CAD (coronary artery disease): Code(s): I25.10 - Atherosclerotic heart disease of [place] coronary artery without angina pectoris Category: Medical Qualifiers: Associated angina: without angina Coronary Disease-Associated Artery/Lesion type: bypass graft [place] vs. transplanted heart: [place] heart Qualified Code(s): I25.810 - Atherosclerosis of coronary artery bypass graft(s) without angina pectoris (2) S/P CABG (coronary artery bypass graft): Code(s): Z95.1 - Presence of aortocoronary bypass graft Category: Surgical (3) Sternum pain: Code(s): R07.89 - Other chest pain Category: Medical Plan Overall, stable from cardiovascular standpoint and continue current regimen. Continue aspirin. History of statin intolerance and she is on Praluent but irregular dosing. Cholesterol seems to have improved significantly. With regard to pain issues, no specific recommendations. Discussed about rheumatology appointment for fibromyalgia but she is not interested. She has daytime fatigue and there is a history of sleep apnea and she can see sleep Medicine for follow-up. Total time spent including review of data, counseling, documentation, coordination of care-31 minutes. Patient Instructions: Discussion Notes During the visit, we discussed the patient's fibromyalgia and the challenges posed by her allergies to pain medications. We considered the possibility of consulting a material processor for further management options. For her sleep apnea, I recommended a follow-up with a sleep medicine specialist to explore CPAP therapy or other alternatives. We also discussed the potential for an implantable device, though her pain tolerance may be a limiting factor. Regarding hyperlipidemia, we reviewed the effectiveness of her current treatment. Patient was informed and verbally consented to the use of an ambient scribe for clinic note documentation during this visit. Coding Level of Care Code Est Pt Level 4 (69447) Complex EM visit Add On G2211 Diagnoses Coronary artery disease involving coronary bypass graft of [place] heart without angina pectoris I25.810 Associated angina: without angina Coronary Disease-Associated Artery/Lesion type: bypass graft [place] vs. transplanted heart: [place] heart S/P CABG (coronary artery bypass graft) Z95.1 Sternum pain R07.89
[2025-01-08 10:30] VITALS: BP 118/60; PULSE 86
--- OUTSIDE RECORDS SUMMARY | 2025-01-08 11:11 | XMS_ITS | Clinical Summary ---
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 Pt seen at [facility]: on 02/16/2015: Given Mobic: referred for MRi of shoulder for possible rotator cuff tear. Seen 03/23/2015: Will obtain MRI due to increase complaint. consider injections. Seen By Dr Ambrose at [facility] on 06/23/2015: Pt has right shoulder [...] in the patellofemoral compartment. Pt seen at [facility] on 06/24/2015: will obtain ortho evaluation for knee. IBS (irritable bowel syndrome) 05/05/2014 Overview (05/20/2014): EGD normal 2007. Duodenal biopsy normal. Colonic biopsy normal. Barium enema normal. Migraines 05/05/2014 Chronic low back pain 05/05/2014 Overview (02/24/2015): MRI w/o contrast done 06/23/2013 at [place] of lumbar spine: impression: at T9- T10 there is a small left paramedian /posterior disc herniation seen in the sagittal sequences. Mild ligamentous bulging and minor facet arthropathy of the lower lumbar spine as described. No focal nerve root compression. Xray done of lumbosacral spine done at [facility] on 04/03/14: similar appearing mild degenerative changes. [...] 01/19/2007,01/05/2007,12/29/2006,12/25,12/22/2006 Rabies Immune Globulin, Heat Treated 12/22/2006 Td (adult),2 Lf tetanus toxo id (TDVAX), preservative free 07/24/2003 Social History Tobacco Use Types [...] 87 11/20/2014 3:49 PM EDT Temperature 36.7 C (98.1 F) 11/20/2014 3:49 PM EDT Respiratory Rate 21 11/20/2014 3:49 PM EDT Oxygen Saturation - - Inhaled Oxygen Concentration - - Weight 75.3 kg (165 lb 14.4 oz) 11/20/2014 3:49 PM EDT Height 167.6 cm (5' 6 ) 09/17/2014 4:06 PM EDT Body Mass Index 26.78 09/17/2014 4:06 PM EDT Plan of Treatment Not on file Insurance [facility] Care Teams Rolling Up Machine Operator Relationship Specialty Start Date End Date Peri Joe PA-C [address] [place] [address] PCP - General 04/18/18
--- OUTSIDE RECORDS SUMMARY | 2025-01-08 11:11 | XMS_ITS | Clinical Summary ---
Author Organization [facility] Facility Address [address] [address] Care Team Providers Care Die Press Operator Name Role Phone Unavailable Primary Care Provider [...] Cancer Screening: Sigmoidoscopy 2013 Influenza Vaccine (#1) 2025 Pneumococcal Vaccine: Peds ( 0 to 5 Years) and At-Risk Patients (6 to 49 Years) Discontinued 11/15/2006 Hepatitis B Vaccine Aged Out No longe r eligible based on patient's age to complete this topic Insurance [place]
== END 2025-01-08 10:50 | disposition home or self-care (01) ==
LOC: HO.HCS 10:26
PROVIDERS: PCP Physician Assistant; Visit Provider Internal Medicine
DX: I25.810 Atherosclerosis of coronary artery bypass graft(s) without angina pectoris (principal); Z95.1 Presence of aortocoronary bypass graft; R07.89 Other chest pain
CPT/HCPCS: 99214; G2211

== ENCOUNTER → 2025-01-08 10:26 | Outpatient (BNVA) | payer MEDICARE, MEDICAID, SELFPAY | PROVIDERS: PCP Physician Assistant; Visit Provider Internal Medicine | DX: R07.89 Other chest pain (principal); I25.810 Atherosclerosis of coronary artery bypass graft(s) without angina pectoris; Z87.891 Personal history of nicotine dependence | CPT/HCPCS: 99212 ==

== ENCOUNTER 2025-04-15 09:43 | Outpatient (REF) | payer MEDICARE, MEDICAID, SELFPAY ==
[2025-04-15 10:38] LABS: Hematocrit 42.8 % (37.0-47.0); Hemoglobin 13.0 g/dl (12.0-16.0); Mean Corpuscular HGB Conc 30.4 g/dl (31.0-35.0); Mean Corpuscular Hemoglobin 25.5 pg (27.0-33.0); Mean Corpuscular Volume 83.9 fL (80.0-98.0); NRBC Abs Auto 0.000 X10*3/uL (0.0-0.012); NRBC Pct Auto 0.0 /100WBC (0.0-0.2); Platelet Count 367 X10*3/uL (160-400); Red Blood Count 5.10 X10*6/uL (4.20-5.50); White Blood Count 9.7 X10*3/uL (4.8-10.8)
[2025-04-15 10:55] LABS: Appearance Urine Clear; Glucose Urine UA Negative (Negative); PH 6.5 (5.0-9.0); Specific Gravity - Urine 1.020 (1.005-1.025); UMIC TRIGGER UACC YES
[2025-04-15 10:59] LABS: Alanine Aminotransferase 22 U/L (0-31); Albumin Level 4.2 g/dL (3.5-5.0); Alkaline Phosphatase 117 U/L (39-117); Anion Gap 10 (12-20); Aspartate Amino Transferase 17 U/L (5-31); Blood Urea Nitrogen 17 mg/dL (9-16); Calcium 9.3 mg/dL (8.4-10.2); Carbon Dioxide 26 mmol/L (22-29); Chloride 108 mmol/L (96-108); Estimated Glomerular Filt Rate > 60; Magnesium 2.1 mg/dL (1.6-2.6); Potassium 4.8 mmol/L (3.3-5.1); Sodium 139 mmol/L (135-145); Total Protein 7.6 g/dL (6.5-8.0)
== END 2025-04-15 09:44 | disposition home or self-care (01) ==
LOC: HO.LAB 09:43
PROVIDERS: PCP Physician Assistant; Visit Provider Physician Assistant
DX: R25.2 Cramp and spasm (principal); D50.9 Iron deficiency anemia, unspecified; R30.0 Dysuria; J06.9 Acute upper respiratory infection, unspecified
CPT/HCPCS: 36415; 80053; 81001; 82550; 83735; 85027

== ENCOUNTER 2025-04-28 22:54 | Emergency (ER) | payer MEDICARE, MEDICAID, SELFPAY ==
--- NOTE | ~2025-04-28 | XR_ITS ---
CLINICAL HISTORY: cough 1 view chest x-ray Comparison: CR/NH/SR - XR CHEST 1 VIEW - 09/30/24 10:27 EDT Findings: The lungs are clear. No effusion or pneumothorax. Sternotomy wires are unchanged. Heart size is normal. No acute fracture. IMPRESSION: 1. No acute findings. This document has been electronically signed by: Adalberto Espinoza MD on 04/29/2025 00:24:34
[2025-04-28 23:04] VITALS: BP 101/74; PULSE 117; RESP 22; TEMP 36.7; O2SAT 96; BMI 33.3
[2025-04-28 23:11] VITALS: BP 119/75; PULSE 120; O2SAT 98
[2025-04-28] MEDS: Magnesium Sulfate/H2O 2 GM/50 ML PIGGYBACK IV (23:19)
--- NOTE | 2025-04-28 23:28 | ED_ITS ---
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 Patient states she has been having an ongoing dry repetitive cough, that worsened today. Patient states she has been using her home nebulizer without relief of symptoms. Denies sick contacts with similar symptoms, fever. Related Data Home Medications ?Medication ?Instructions ?Recorded ?Confirmed budesonide 32 mcg/actuation nasal 2 spray intranasal D AILY 08/02/24 01/08/25 spray Previous Rx's ?Medication ?Instructions ?Recorded riboflavin (vitamin B2) 50 mg 50 mg PO DAILY 90 days # 90 tabs 04/01/24 tablet cholecalciferol (vitamin D3) 50 50 mcg PO DAILY #90 ca ps 06/26/24 mcg (2,000 unit) capsule vitamin B complex (Vitamins B 1 tab PO DAILY 90 days # 90 tabs 07/29/24 Complex tablet) levalbuterol HCl 0.63 mg/3 mL 0.63 mg (3 mL) inhalatio n TID PRN 08/22/24 solution for nebulization shortness of breath or wheez ing 30 days #90 mL betamethasone, augmented 0.05 % 1 appl topical DAILY 8 weeks #45 09/17/24 topical ointment grams lidocaine 5 % topical patch 1 patch topical DAILY #30 ea 09/30/24 methocarbamol 750 mg tablet 750 mg PO BID PRN muscle s pasm #20 09/30/24 tabs aspirin 81 mg tablet,delayed 81 mg PO DAILY@1800 #90 t abs 10/21/24 release (Enteric Coated Aspirin) nebulizer accessories #1 ea 10/23/24 nebulizers (AeroEclipse XL #1 ea 10/23/24 Nebulizer) meloxicam 15 mg tablet 15 mg PO ONCE PRN pain, mode rate 7 10/25/24 days #7 tabs levalbuterol HCl 0.63 mg/3 mL 0.63 mg (3 mL) inhalatio n TID PRN 11/11/24 solution for nebulization shortness of breath or wheez ing 30 days #90 mL loratadine 10 mg tablet 10 mg PO DAILY #90 tabs 06/22 Xopenex HFA 45 mcg/actuation 2 inh inhalation Q6H 30 d ays #15 01/29/25 aerosol inhaler (levalbuterol grams tartrate) alirocumab 75 mg/mL subcutaneous 75 mg subcut Q2W #2 m L 02/05/25 pen injector (Praluent Pen) codeine 10 mg-guaifenesin 100 mg/5 10 ml PO Q4-6H PRN cough #120 mL 04/29/25 mL oral liquid (Guaifenesin AC) prednisone 20 mg tablet 40 mg (2 x 20 mg) PO DAILY # 8 tabs 04/29/25 Allergies Allergy/AdvReac Type Severity Reaction Status Date / Time calcium (Calcium) Allergy Severe HIVES Verified 04/28/25 23:09 doxycycline (Doxycycline) Allergy Severe FACIAL Verified 04/28/25 23:09 SWELLING,almost killed pt,inhouse for weakness,,incontinence?seizures Penicillins Allergy Severe Facial Verified 04/28/25 23:09 Swelling lactose Allergy Mild Unknown Verified 04/28/25 23:09 amoxicillin Allergy Unknown Throat Verified 04/28/25 23:09 swelling azithromycin (AZITHROMYCIN) Allergy Unknown Bloody Verified 04/28/25 23:09 Diarrhea cefuroxime (CEFUROXIME) Allergy Unknown Angioedema Verified 04/28/25 23:09 ciprofloxacin (From Cipro) Allergy Unknown Unknown Verified 04/28/25 23:09 clindamycin (CLINDAMYCIN) Allergy Unknown Anaphylaxis Verified 04/28/25 23:09 erythromycin base Allergy Unknown Diarrhea Verified 04/28/25 23:09 iron Allergy Unknown Unknown Verified 10/25/24 12:04 levofloxacin (From Levaquin) Allergy Unknown Unknown Verified 10/25/24 12:04 linezolid Allergy Unknown Hives Verified 10/25/24 12:04 peanut (Peanut) Allergy Unknown Itching Verified 10/25/24 12:04 penicillin V Allergy Unknown ears and Verified 10/25/24 12:04 face swell,throat swell Sulfa (Sulfonamide Allergy Unknown ANAPHYLAXIS, Verified 10/25/24 12:04 Antibiotics) swelling (SULFA(SULFONAMIDE body,welts ANTIBIOTICS)) [id number] Reductase AdvReac Severe Muscle Pain Verified 10/25/24 12:04 Inhibitor aspirin AdvReac Intermediate Swelling Verified 10/25/24 12:04 cefazolin AdvReac Mild Anaphylaxis Verified 10/25/24 12:04 cheetos Allergy Unknown itchy, rash Uncoded 10/25/24 12:04 cranberry juice Allergy Unknown mouth Uncoded 10/25/24 12:04 itchy, bumps grape juice Allergy Unknown mouth Uncoded 10/25/24 12:04 itchy, bumps RAISIN Allergy Unknown Itching Uncoded 10/25/24 12:04 TURNIPS Allergy Unknown Unknown Uncoded 10/25/24 12:04 Plavix/clopidogrel AdvReac Intermediate Fatigued, Uncoded 10/25/24 12:04 dizziness, lightheadedness Review of Systems 2 Review of Systems: Yes all other systems are reviewed and are negative Constitutional: Constitutional: Denies fatigue and Denies fever(s) Cardiovascular: Cardiovascular: Denies chest pain and Denies dyspnea Respiratory: Respiratory: Denies chest congestion, Reports cough, Denies dyspnea and Denies wheezing Gastrointestinal: Gastrointestinal: Denies abdominal pain, Denies nausea and Denies vomiting Endocrine: Endocrine: Denies fatigue Allergic/Immunologic: Allergic/Immunologic: Denies wheezing PMFSH Past Medical History Attestation statement: The following information was validated with the patient. Medical History CAD (coronary artery disease) IBS (irritable bowel syndrome) Exocrine pancreatic insufficiency Lichen sclerosus Cough Bilateral knee pain Rectal prolapse Pre-op examination Small intestinal bacterial overgrowth Appendicitis Kidney stone Carpal tunnel syndrome Right shoulder injury Vertigo Chronic headaches Diverticulosis Fibromyalgia Depression Surgical History H/O uterosacral colpopexy H/O breast surgery S/P triple vessel bypass History of endometrial ablation History of esophagogastroduodenoscopy (EGD) Hx of colonoscopy Hx of carpal tunnel repair (~07/2019) Hx of rotator cuff surgery Hx of shoulder surgery Hx of appendectomy Hx of cholecystectomy Family History Family History Father Myocardial infarction, Onset Age: 46 Mother Congestive heart failure Stomach problems Stomach ulcer Anxiety and depression Myocardial infarction, Onset Age: 50 Mental health disorder Sister Heart problem Myocardial infarction, Onset Age: 59 Sister Afib Brother Throat cancer Lung cancer Social History Social History Household Members: Family Housing: Apartment Alcohol intake: never Patient Tobacco Use Status: Former Tobacco user Tobacco use type: Cigarette Years Smoked: 30 +/- e-Cigarette/Vaping Use: Never Used Second Hand Smoke Exposure: No Advance Directives: Yes Advance Directives on File: Yes Advance Directives Date on File: 02/25/22 service: No Current occupational status: disabled 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 Cognitive needs: No Hearing needs: No Vision needs: Yes (Glasses) Physical Exam ED Vital Signs: Vital Signs - 24 hr 04/28/25 23:04 04/29/25 00:02 Temperature 98.1 F Pulse Rate 117 H 96 Respiratory Rate 22 H 16 Blood Pressure 101/74 Pulse Oximetry 96 Oxygen Delivery Method Room Air BMI result Body Mass Index 33.3 Const Other: Alert Orientation/consciousness: patient oriented x3 Resp Other: Active bronchospasm cough, most clear to auscultation no wheezing Cardio Other: Normal peripheral perfusion Skin Other: Warm dry no rash Neuro General: patient oriented x3, gait normal, no focal motor deficits and CN's II- XI intact bilaterally Psych Other: Cooperative Medications Administered Discontinued Medications Generic Name Dose Route Start Last Admin Trade Name Freq PRN Reason Stop Dose Admin Guaifenesin/Codeine Phosphate 10 ml 04/28/25 23:37 04/29/25 00:04 Guaifen/Codeine Sf 200/20/10ml 10 Ml Liquid PO 04/28/25 23:38 10 ml ONCE ONE Administration Magnesium Sulfate 2 gm in 50 mls @ 150 mls/hr 04/28/25 23:12 04/29/25 00:04 Magnesium Sulfate/H2o IV 04/28/25 23:31 Infused ONCE ONE Infusion Levalbuterol HCl 2.5 mg 04/28/25 23:38 04/29/25 00:00 Levalbuterol Hcl 1.25 Mg/3 Ml Vial.Neb INHALE 04/28/25 23:39 2.5 mg ONCE ONE Administration Methylprednisolone Sodium Succinate 60 mg 04/28/25 23:09 04/28/25 23:17 Methylprednisolone Sod Succ 125 Mg/2 Ml Vial IVPUSH 04/28/25 23:10 60 mg ONCE ONE Administration Medical Decision Making Medical Decision Making [facility] Narrative: 60-year-old female with a history of asthma, hypertension, hyperlipidemia, known coronary artery disease now status post CABG, 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 Patient states she has been having an ongoing dry repetitive cough, that worsened today. Patient states she has been using her home nebulizer without relief of symptoms. Denies sick contacts with similar symptoms, fever. Problem: Asthma, tobacco abuse, vascular disease History: Per patient I have considered the following differential diagnoses: Asthma exacerbation, viral syndrome, bronchitis, Pneumonia Plan: patient here with bronchospasm type cough, in addition to screening labs, viral panel pending chest x-ray pending, ordering an updraft giving steroid and magnesium. We will also give Mucinex with codeine I have independently reviewed the following tests: Labs: No leukocytosis, not anemic, no electrolyte abnormality, viral panel negative Chest x-ray:Findings: The lungs are clear. No effusion or pneumothorax. Sternotomy wires are unchanged. Heart size is normal. No acute fracture. IMPRESSION: 1. No acute findings. This document has been le Differential Diagnosis Differential Diagnoses: The differential diagnosis associated with the presentation includes see MDM Admission/Observation Consideration of admission/observation: Escalation of care including admission/observation considered not applicable Lab Data [facility] Lab Attestation statement: I reviewed the patient's lab results. 04/28/25 23:26 04/28/25 23:26 Labs: Lab Results 04/28/25 04/28/25 Range/Units 23:23 23:26 WBC 10.8 (4.8-10.8) X10*3/uL RBC 5.24 (4.20-5.50) X10*6/uL Hgb 13.2 (12.0-16.0) g/dl Hct 43.8 (37.0-47.0) % MCV 83.6 (80.0-98.0) fL MCH 25.2 L (27.0-33.0) pg MCHC 30.1 L (31.0-35.0) g/dl RDW 15.6 (11.0-16.0) % Plt Count 327 (160-400) X10*3/uL MPV 9.9 (9.4-12.3) fL Immature Gran % (Auto) 0.4 (0.0-0.4) % Neut % (Auto) 61.4 (45-73) % Lymph % (Auto) 20.7 (20-40) % Crosby % (Auto) 10.5 (2-11) % Eos % (Auto) 6.4 H (0-4) % Baso % (Auto) 0.6 (0-2) % Lymph # (Auto) 2.2 (1.2-4.9) X10*3/uL Crosby # (Auto) 1.1 (0.1-1.2) X10*3/uL Eos # (Auto) 0.7 H (0.0-0.4) X10*3/uL Baso # (Auto) 0.1 (0.0-0.2) X10*3/uL Abs Immat Gran (auto) 0.04 H (0.00-0.03) X10*3/uL Absolute Neuts (auto) 6.7 (2.0-8.3) x10*3/uL Absolute Nucleated RBC 0.000 (0.0-0.012) X10*3/uL Nucleated RBC % (auto) 0.0 (0.0-0.2) /100WBC Sodium 139 (135-145) mmol/L Potassium 4.1 (3.3-5.1) mmol/L Chloride 109 H (96-108) mmol/L Carbon Dioxide 22 (22-29) mmol/L Anion Gap 12 (12-20) BUN 12 (9-16) mg/dL Creatinine 0.99 (0.5-1.4) mg/dL Estim Creat Clear Calc 66.4 Estimated GFR 57 Random Glucose 166 H (60-115) mg/dL Calcium 9.2 (8.4-10.2) mg/dL Magnesium 3.7 H* (1.6-2.6) mg/dL Influenza Type A (PCR) NEGATIVE (Negative) Influenza Type B (PCR) NEGATIVE (Negative) RSV RNA Qual (PCR) NEGATIVE (Negative) SARS-CoV-2 RNA (RT-PCR) NEGATIVE (Negative) Radiology Impression Discussion of test interpretation with radiology: I have reviewed the radiologist's reading. Discharge Plan Discharge Clinical Impression: Bronchospasm Patient Disposition: Home, Self-Care Instructions: Bronchospasm (ED) Additional Instructions: you are being treated for bronchospasm type cough. The viral panel was negative, the chest x-ray is clear, you do not have pneumonia. Continue to use your home nebulizer treatment as needed, take the steroid as directed. Use the cough syrup as needed to help you sleep. This medication can cause drowsiness, do not drive or operate machinery while taking the cough syrup. Follow up with your primary care as needed. Prescriptions: New prednisone 20 mg tablet 40 mg PO DAILY Qty: 8 0RF codeine-guaifenesin [Guaifenesin AC] 10-100 mg/5 mL liquid 10 ml PO Q4-6H PRN (Reason: cough) Qty: 120 0RF No Action riboflavin (vitamin B2) 50 mg tablet 50 mg PO DAILY 90 Days Qty: 90 2RF cholecalciferol (vitamin D3) 50 mcg (2,000 unit) capsule 50 mcg PO DAILY Qty: 90 3RF levalbuterol HCl 0.63 mg/3 mL solution for nebulization 0.63 mg inhalation TID PRN (Reason: shortness of breath or wheezing) 30 Days Qty: 90 0RF aspirin [Enteric Coated Aspirin] 81 mg tablet,delayed release (DR/EC) 81 mg PO DAILY@1800 Qty: 90 3RF (DME) nebulizers [AeroEclipse XL Nebulizer] [facility] [place] See Rx Instructions .Route Qty: 1 0RF Rx Instructions: As directed (DME) nebulizer accessories Kit See Rx Instructions .Route Qty: 1 0RF Rx Instructions: As directed levalbuterol HCl 0.63 mg/3 mL solution for nebulization 0.63 mg inhalation TID PRN (Reason: shortness of breath or wheezing) 30 Days Qty: 90 3RF loratadine 10 mg tablet 10 mg PO DAILY Qty: 90 1RF levalbuterol tartrate [Xopenex HFA] 45 mcg/actuation HFA aerosol inhaler 2 inh inhalation Q6H 30 Days Qty: 15 6RF Praluent Pen 75 mg/mL pen injector 75 mg subcut Q2W Qty: 2 5RF budesonide 32 mcg/actuation spray,non-aerosol 2 spray intranasal DAILY Rx Instructions: administer into each nostril methocarbamol 750 mg tablet 750 mg PO BID PRN (Reason: muscle spasm) Qty: 20 0RF lidocaine 5 % adhesive patch,medicated 1 patch topical DAILY Qty: 30 0RF Rx Instructions: leave on most painful area for up to 12 hrs meloxicam 15 mg tablet 15 mg PO ONCE PRN (Reason: pain, moderate) 7 Days Qty: 7 0RF Rx Instructions: Take 1 tablet by mouth daily as needed for pain/swelling for up to 7 days. betamethasone, augmented 0.05 % ointment 1 appl topical DAILY 56 Days Qty: 45 1RF Rx Instructions: apply a thin a coat to area nightly for two weeks, then every other night for two weeks, then twice a week vitamin B complex [Vitamins B Complex] Tablet 1 tab PO DAILY 90 Days Qty: 90 1RF Print Language: Khmer
[2025-04-28 23:31] LABS: MANUAL DIFF FLAG NO
[2025-04-28 23:32] LABS: Hematocrit 43.8 % (37.0-47.0); Hemoglobin 13.2 g/dl (12.0-16.0); Imm Gran Abs Auto 0.04 X10*3/uL (0.00-0.03); Imm Gran Pct Auto 0.4 % (0.0-0.4); Lymphocytes Absolute Auto 2.2 X10*3/uL (1.2-4.9); Mean Corpuscular HGB Conc 30.1 g/dl (31.0-35.0); Mean Corpuscular Hemoglobin 25.2 pg (27.0-33.0); Mean Corpuscular Volume 83.6 fL (80.0-98.0); NRBC Abs Auto 0.000 X10*3/uL (0.0-0.012); NRBC Pct Auto 0.0 /100WBC (0.0-0.2); Platelet Count 327 X10*3/uL (160-400); Red Blood Count 5.24 X10*6/uL (4.20-5.50); White Blood Count 10.8 X10*3/uL (4.8-10.8)
[2025-04-28 23:56] LABS: Anion Gap 12 (12-20); Blood Urea Nitrogen 12 mg/dL (9-16); Calcium 9.2 mg/dL (8.4-10.2); Carbon Dioxide 22 mmol/L (22-29); Chloride 109 mmol/L (96-108); Creatinine Clr Calc Pharmacy 66.4; Estimated Glomerular Filt Rate 57; Magnesium 3.7 mg/dL (1.6-2.6); Potassium 4.1 mmol/L (3.3-5.1); Sodium 139 mmol/L (135-145)
--- OUTSIDE RECORDS SUMMARY | 2025-04-28 23:59 | XMS_ITS | Clinical Summary ---
Author Organization [facility] Facility Address [address] [address] Care Team Providers Care Cabin Supervisor Name Role Phone Unavailable Primary Care [...]
[2025-04-29 00:02] VITALS: PULSE 96; RESP 16; O2SAT 94
[2025-04-29] MEDS: guaiFEN/Codeine SF 200/20/10ML 10 ML LIQUID PO (00:04)
[2025-04-29 00:09] LABS: Resp Syncy Virus RNA Qual PCR NEGATIVE (Negative); SARS COV2 PCR INHOUSE NEGATIVE (Negative)
[2025-04-29 01:50] VITALS: BP 101/74; PULSE 96; RESP 16; TEMP 36.7; O2SAT 96
== END 2025-04-29 01:50 | disposition home or self-care (01) ==
PROVIDERS: Physician Assistant Medical; Emergency Provider Emergency Medicine
DX: J98.01 Acute bronchospasm (principal); R05.9 Cough, unspecified; I25.10 Atherosclerotic heart disease of native coronary artery without angina pectoris; Z79.899 Other long term (current) drug therapy; Z03.818 Encounter for observation for suspected exposure to other biological agents ruled out
CPT/HCPCS: 71045; 80048; 83735; 85025; 87637; 94640; 96365; 96375; 99284; J2919; J3475

== ENCOUNTER → 2025-04-28 23:09 | Outpatient (BNV) | payer MEDICARE, MEDICAID, SELFPAY | PROVIDERS: Emergency Provider Emergency Medicine; Visit Provider Radiology Diagnostic Radiology | DX: R05.9 Cough, unspecified (principal) | CPT/HCPCS: 71045 ==

== ENCOUNTER 2025-05-06 10:14 | Outpatient (AMB) | payer MEDICARE, MEDICAID, SELFPAY ==
[2025-05-06 10:35] VITALS: BP 110/80; PULSE 86; TEMP 36.4; O2SAT 100; BMI 41.1
--- NOTE | 2025-05-06 10:35 | AM.OFFWIN_ITS ---
Intake Vital Signs 05/06/25 10:35 Height 5 ft 0.5 in Weight 214 lb BMI 41.1 BP 110/80 Blood Pressure Location Lt brachial Position Sitting Pulse 86 Pulse Source Pulse Oximeter Temp 97.5 F Temp Source Oral Pulse Oximetry (%) 100 Oxygen Delivery Method Room Air Intake Visit Reasons: EP Rt hand pain( car [phone]) Intake Note: PT presents with RT hand pain for approx 2 mo after feeling a pop during an automated BP reading-states cuff inflated multiple times Patient Tobacco Use Status: Former Tobacco user Allergies calcium (Calcium) Allergy (Severe, Verified 05/06/25 10:36) HIVES doxycycline (Doxycycline) Allergy (Severe, Verified 05/06/25 10:36) FACIAL SWELLING,almost killed pt,inhouse for weakness,,incontinence?seizures Penicillins Allergy (Severe, Verified 05/06/25 10:36) Facial Swelling lactose Allergy (Mild, Verified 05/06/25 10:36) Unknown amoxicillin Allergy (Unknown, Verified 05/06/25 10:36) Throat swelling azithromycin (AZITHROMYCIN) Allergy (Unknown, Verified 05/06/25 10:36) Bloody Diarrhea cefuroxime (CEFUROXIME) Allergy (Unknown, Verified 05/06/25 10:36) Angioedema ciprofloxacin (From Cipro) Allergy (Unknown, Verified 05/06/25 10:36) Unknown clindamycin (CLINDAMYCIN) Allergy (Unknown, Verified 05/06/25 10:36) Anaphylaxis erythromycin base Allergy (Unknown, Verified 05/06/25 10:36) Diarrhea iron Allergy (Unknown, Verified 05/06/25 10:36) Unknown levofloxacin (From Levaquin) Allergy (Unknown, Verified 05/06/25 10:36) Unknown linezolid Allergy (Unknown, Verified 05/06/25 10:36) Hives peanut (Peanut) Allergy (Unknown, Verified 05/06/25 10:36) Itching penicillin V Allergy (Unknown, Verified 05/06/25 10:36) ears and face swell,throat swell Sulfa (Sulfonamide Antibiotics) (SULFA(SULFONAMIDE ANTIBIOTICS)) Allergy (Unknown, Verified 05/06/25 10:36) ANAPHYLAXIS, swelling body,welts [id number] Reductase Inhibitor Adverse Reaction (Severe, Verified 05/06/25 10:36) Muscle Pain aspirin Adverse Reaction (Intermediate, Verified 05/06/25 10:36) Swelling cefazolin Adverse Reaction (Mild, Verified 05/06/25 10:36) Anaphylaxis cheetos Allergy (Unknown, Uncoded 05/06/25 10:36) itchy, rash cranberry juice Allergy (Unknown, Uncoded 05/06/25 10:36) mouth itchy, bumps grape juice Allergy (Unknown, Uncoded 05/06/25 10:36) mouth itchy, bumps RAISIN Allergy (Unknown, Uncoded 05/06/25 10:36) Itching TURNIPS Allergy (Unknown, Uncoded 05/06/25 10:36) Unknown Plavix/clopidogrel Adverse Reaction (Intermediate, Uncoded 05/06/25 10:36) Fatigued, dizziness, lightheadedness Do you need a note to return to daycare/school/sports/work: No HPI HPI Comments History of Present Illness Details History of Present Illness - The patient is a 60 year old female pr esenting with worsening right hand pain that has been present for a couple of months. - The onset of pain occurred after a blo od pressure cuff was applied too tightly during an ambulance transport, during which she felt something pop up in her hand. - The pain is located on the dorsum of t he right hand, described as being across the of the hand. - She reports sharp pain that makes her jump or yell when she grabs something or turns her hand in a certain way, and the pain also wakes her from sleep. - Associated symptoms include a lumpy fe eling on the hand and occasional shaking, but she denies any numbness, tingling, swelling, redness, or heat. - She has difficulty holding a pen. - The patient has not used Tylenol, Motr in, or Aleve for the pain. - Past medical history is significant fo r carpal tunnel surgery on her right hand, which she says was her dominant hand, resulting in weakness. - She also has a history of chronic pain . - She is left hand dominant. Physical Exam General: Cooperative, healthy appearing, comfortable, no acute distress and well developed Orientation: Patient oriented x3 Respiratory: Normal respiratory effort and able to speak in complete sentences. Clear to auscultation bilaterally Cardiovascular: Regular rate and rhythm. Normal S1 and S2. Pulses are 2+ on the UE bilaterally. Skin: No rashes or lesions noted. No masses or lesions. No erythema noted. Neuro: Sensation is intact. Extremities: FROM of the digits on the right hand. TTP of the carpals on the dorsal aspect of the hand. No TTP of the MCP, PIP, or DIP joints of the right hand. Flexion and extension of the digits on the right hand is intact. Hand physical biochemist is intact. Patient was informed and verbally consented to the use of an ambient scribe for clinic note documentation during this visit. [facility] Medical History CAD (coronary artery disease) IBS (irritable bowel syndrome) Exocrine pancreatic insufficiency Lichen sclerosus Cough Bilateral knee pain Rectal prolapse Pre-op examination Small intestinal bacterial overgrowth Appendicitis Kidney stone Carpal tunnel syndrome Right shoulder injury Vertigo Chronic headaches Diverticulosis Fibromyalgia Depression Surgical History H/O uterosacral colpopexy H/O breast surgery S/P triple vessel bypass History of endometrial ablation History of esophagogastroduodenoscopy (EGD) Hx of colonoscopy Hx of carpal tunnel repair (~07/2019) Hx of rotator cuff surgery Hx of shoulder surgery Hx of appendectomy Hx of cholecystectomy Family History Father Myocardial infarction, Onset Age: 46 Mother Congestive heart failure Stomach problems Stomach ulcer Anxiety and depression Myocardial infarction, Onset Age: 50 Mental health disorder Sister Heart problem Myocardial infarction, Onset Age: 59 Sister Afib Brother Throat cancer Lung cancer Social History Household Members: Family Housing: Apartment Alcohol intake: never Patient Tobacco Use Status: Former Tobacco user Tobacco use type: Cigarette Years Smoked: 30 +/- e-Cigarette/Vaping Use: Never Used Second Hand Smoke Exposure: No Advance Directives Date on File: 02/25/22 service: No Current occupational status: disabled 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 Cognitive needs: No Hearing needs: No Vision needs: Yes (Glasses) Female Reproductive History Menstrual Age of Menarche: 15 Review of Systems Const All systems reviewed & are unremarkable except as noted in HPI and below Physical Exam Vital Signs: Last Vital Signs Temp 97.5 F 05/06/25 10:35 Pulse 86 05/06/25 10:35 BP 110/80 05/06/25 10:35 Pulse Ox 100 05/06/25 10:35 Oxygen Delivery Method Room Air 05/06/25 10:35 BMI result Body Mass Index 41.1 Results Reviewed Results Reviewed: will review the xray in the office Assessment & Plan Assessment & Plan (1) Right hand pain: Code(s): M79.641 - Pain in right hand Plan Most likely strain vs tendonitis vs cyst? plan - An X-ray of the left hand will be performed to evaluate for underlying pathology such as a tendon injury or arthritis. - An theo wrap will be provided for pain management. - tylenol or motrin as needed - activities as tolerated - will call with the results of the xray - advised if pain continues to seek a referral for ortho Orders: Orders XR hand RT min 3V Today M79.641 - Pain in right hand Coding Level of Care Code Est Pt Level 4 (75537) Diagnoses Right hand pain M79.641
== END 2025-05-06 13:44 | disposition home or self-care (01) ==
PROVIDERS: PCP Physician Assistant; Visit Provider Physician Assistant Medical
DX: M79.641 Pain in right hand (principal)

== ENCOUNTER 2025-05-06 10:14 | Outpatient (REF) | payer MEDICARE, MEDICAID, SELFPAY ==
--- NOTE | ~2025-05-06 | XR_ITS ---
EXAMINATION: XR HAND 3 OR MORE VIEWS RIGHT HISTORY: M79.641 - Pain in right hand COMPARISON: Comparison is made with the prior examination dated 07/27/2016. FINDINGS: Three views of the right hand are submitted. Osseous mineralization is normal. There is no fracture or dislocation. The joint spaces are preserved. The soft tissues are unremarkable. XR/XR hand RT min 3V IMPRESSION: Unremarkable examination of the right hand. Electronically signed by: Jeronimo Smith MD 05/06/2025 11:37 AM EST
== END 2025-05-06 10:15 | disposition home or self-care (01) ==
LOC: HO.HMGCX 10:14
PROVIDERS: PCP Physician Assistant; Visit Provider Physician Assistant Medical
DX: M79.641 Pain in right hand (principal)
CPT/HCPCS: 73130; 99212

== ENCOUNTER → 2025-05-06 11:29 | Outpatient (BNV) | payer MEDICARE, MEDICAID, SELFPAY | PROVIDERS: PCP Physician Assistant; Visit Provider Radiology Diagnostic Radiology | DX: M79.641 Pain in right hand (principal) | CPT/HCPCS: 73130 ==